=== PATIENT | female | born 1935 | race Hispanic/Latino ===

== ENCOUNTER 2018-11-05 20:25 | Inpatient (IN) | payer MEDICARE ==
[2018-11-05] MEDS ORDERED: Naloxone 0.4 mg/ml Inj (Adult) IVP STA (20:55)
[2018-11-05] MEDS ORDERED: Etomidate 20 mg/10ml Inj IV ONE ×2 (20:57→21:23)
[2018-11-05] MEDS ORDERED: Sodium Chloride 0.9% 1,000 ML IV SCH (21:00)
--- NOTE | 2018-11-05 21:24 | ED PDOC ---
HPI: Altered Mental Status Time Seen by Provider: 11/05/18 20:39 Chief Complaint (Nursing): Altered Mental Status Chief Complaint (Provider): altered mental status History Per: EMS, Other (assisted notes) History/Exam Limitations: Clinical Condition Onset/Duration Of Symptoms: Days (3) Current Symptoms Are (Timing): Still Present Additional Complaint(s): Pt. was had fevers in the assisted for 3 days and found to be unresponsive today so sent to the ER. Limited H and P as pt. unresponsive. Past Medical History Reviewed: Nursing Documentation, Vital Signs Vital Signs: Last Vital Signs Temp 99.2 F 11/05/18 20:31 Pulse 88 11/05/18 20:31 Resp 16 11/05/18 20:31 BP 143/65 11/05/18 20:31 Pulse Ox 96 11/05/18 20:31 - Medical History PMH: HTN - Family History Family History: States: Unknown Family Hx - Living Arrangements Living Arrangements: [facility] - Social History Current smoker - smoking cessation education provided: No Alcohol: None Drugs: Denies - Home Medications Home Medications: Ambulatory Orders Medication Instructions Recorded Carvedilol [Coreg] 0 mg PO DAILY 07/26/16 Ciprofloxacin [Cipro] 500 mg PO BID #20 tab 07/26/16 Levothyroxine [Synthroid] 0 mcg PO DAILY 07/26/16 Metronidazole [Flagyl] 500 mg PO TID #30 tab 07/26/16 Unk Bp Med 07/26/16 - Allergies Allergies/Adverse Reactions: Allergies Allergy/AdvReac Type Severity Reaction Status Date / Time ibuprofen [From Advil] Allergy RASH Verified 11/05/18 20:31 Review of Systems Review Of Systems: ROS cannot be obtained secondary to pt's inabilty to answer questions. Physical Exam - Reviewed Nursing Documentation Reviewed: Yes Vital Signs Reviewed: Yes - Physical Exam Appears: Positive for: In Acute Distress Head Exam: Positive for: ATRAUMATIC Skin: Positive for: Normal Color, Warm, DRY Eye Exam: Positive for: PERRL. Negative for: Conjunctival injection ENT: Negative for: Pharyngeal Erythema Neck: Positive for: Supple, Trachea Midline Cardiovascular/Chest: Positive for: Regular Rate, Rhythm Respiratory: Positive for: Decreased Breath Sounds, Other (mild coarse sounds) Gastrointestinal/Abdominal: Positive for: Soft. Negative for: Distended Back: Positive for: Normal Inspection Extremity: Negative for: Pedal Edema Neurologic/Psych: Positive for: Other (unresponsive and no gag) - Laboratory Results Result Diagrams: 11/05/18 21:00 11/05/18 21:00 Interpretation Of Abn Labs: probnp elevated, ph 6.99, pco2 elevated, 25 bun - ECG ECG: Positive for: Interpreted By Me, Viewed By Me Interpretation Of Abn EKG: paced O2 Sat by Pulse Oximetry: 96 Pulse Ox Interpretation: Normal (with non rebreather) - Radiology X-Ray: Interpreted by Me, Viewed By Me X-Ray Interpretation: Infiltrates (RLL), Other (vascular congestion) - Progress ED Course And Treament: 0: Pt. intubated due to respiratory failure and protection of airway. PCO2 on vbg elevated. 2199: Spoke with Dr. Zhang who will admit. Spoke with Dr. Sabillon who will admit. No asa as pt. troponin stable. Will hold off on diuresis as pt. also with seps is. Will give fluids conservatively. Antibiotics given. 0: Stable. Abg shows improved CO2 and ph. - Critical Care Total Time (In Min): 60 Documented Critical Care: Time excludes all time spent performint seperately billable procedures Procedures - Intubation Time of Intubation: 21:00 Intubation Method: orotracheal Tube Size (cm): 7.5 Breath Sounds after Intubation: equal Intubation Complications: no complications Post Intubation Xray: Yes Progress/Xray Impression: Glidescope used; etomidate 20 given for sedation. Disposition - Clinical Impression Clinical Impression: Respiratory failure, CHF (congestive heart failure), Dehydration, Sepsis, UTI (urinary tract infection), Pneumonia - Patient ED Disposition Is Patient to be Admitted: Yes - Disposition Disposition Time: 22:18 Condition: CRITICAL - Pt Status Changed To: Hospital Disposition Of: Inpatient - Admit Certification Admit to Inpatient:: After my assessment, the patient will require hospita lization for at least two midnights. This is because of the severity of symptoms shown, intensity of services needed, and/or the medical risk in this patient being treated as an outpatient. - POA Present On Arrival: None Core Measure Indicators: Pneumonia
[2018-11-05 21:27] LABS: VENOUS BLOOD GAS PCO2 > 150 mmHg (40-60); VENOUS BLOOD GAS PO2 64 mm/Hg (30-55); VENOUS BLOOD PH 6.99 (7.32-7.43)
[2018-11-05 21:36] LABS: PROTHROMBIN TIME 11.8 Seconds (9.8-13.1)
[2018-11-05 21:37] LABS: BASO % 0.3 % (0.0-2.0); EOS % 0.3 % (0.0-4.0); HEMOGLOBIN 13.6 g/dL (12.0-16.0); LYMPH % 21.7 % (20.0-40.0); MEAN CELL VOLUME 87.5 fl (81.0-99.0); MEAN CORPUSCULAR HEMOGLOBIN 25.6 pg (27.0-31.0); MEAN CORPUSCULAR HGB CONC 29.3 g/dL (33.0-37.0); MEAN PLATELET VOLUME 8.8 fl (7.2-11.7); MONO # 0.7 K/uL (0.0-0.8); MONO % 7.9 % (0.0-10.0); NEUT # 6.5 K/uL (1.8-7.0); NEUT % 69.8 % (50.0-75.0); NRBC % 0.1 % (0.0-0.0); RBC 5.32 Mil/uL (3.80-5.20); RED CELL DISTRIBUTION WIDTH 19.9 % (11.5-14.5); WHITE BLOOD COUNT 9.4 K/uL (4.8-10.8)
[2018-11-05 21:39] LABS: PARTIAL THROMBOPLASTIN TIME 37.4 Seconds (25.6-37.1)
[2018-11-05 21:44] LABS: RENAL EPITHELIAL 1 /hpf (0-3); SQUAMOUS EPITHIAL 1 /hpf (0-5); URINE AMORPHOUS SEDIMENT OCC /ul (<OCC); URINE BACTERIA MANY (<OCC); URINE BILIRUBIN NEGATIVE (NEGATIVE); URINE BLOOD NEGATIVE (NEGATIVE); URINE CLARITY TURBID (Clear); URINE COLOR AMBER (YELLOW); URINE GLUCOSE (UA) NEG (NEGATIVE); URINE LEUKOCYTE ESTERASE NEG Leu/uL (Negative); URINE PROTEIN 100 mg/dL (NEGATIVE); URINE UROBILINOGEN 0.2-1.0 mg/dL (0.2-1.0)
[2018-11-05 21:46] LABS: ALBUMIN 3.5 g/dL (3.5-5.0); CALCIUM 9.3 mg/dL (8.4-10.2)
[2018-11-05 21:54] LABS: TROPONIN I 0.032 ng/mL (0.00-0.120)
[2018-11-05] MEDS ORDERED: Albuterol-Ipratrop 3 mg / 0.5 (3 ml) UD INH STA (21:58)
[2018-11-05] MEDS ORDERED: Albuterol-Ipratrop 3 mg / 0.5 (3 ml) UD IH STA (21:58)
[2018-11-05 22:15] LABS: ABG ALLEN TEST YES; ARTERIAL BLOOD GAS HCO3 32.9 mmol/L (21-28); ARTERIAL BLOOD GAS O2 SAT 69.3 % (95-98); ARTERIAL BLOOD GAS PCO2 81 mm/Hg (35-45); ARTERIAL BLOOD GAS PH 7.32 (7.35-7.45); ARTERIAL BLOOD GAS PO2 29 mm/Hg (80-100); ARTERIAL BLOOD GAS TCO2 44.2 mmol/L (22-28)
[2018-11-05] MEDS ORDERED: Azithromycin 500 MG in Sodium Chloride 0.9% 250 ML IVPB ONE (22:30)
[2018-11-05] MEDS ORDERED: Piperacillin/Tazobact 3.375 GM in Sodium Chloride 0.9% 100 ML IV ONE (22:30)
[2018-11-05] MEDS ORDERED: Propofol 10 mg/ml 1,000 MG/100 ML VIAL IV SCH (22:45)
[2018-11-05] MEDS ORDERED: Piperacillin/Tazobact 3.375 gm Inj IVPB ONE (22:55)
[2018-11-05] MEDS ORDERED: Albuterol-Ipratrop 3 mg / 0.5 (3 ml) UD ONE (22:55)
[2018-11-05] MEDS ORDERED: Azithromycin 500 MG IV IVPB ONE (22:55)
--- NOTE | 2018-11-05 23:37 | CP.PCM.CON ---
History of Present Illness - History of Present Illness History of Present Illness: PMD: Dr Zhang Reason for consult: Critical care management Chief Complaint: Altered Mental status The Patient was seen and examined in the ED with the patient's son present. HPI: The hx is obtained from Patient's son and after review of the Laboratory, radiological and medical records. This is an 82 years old female with hx of CHF, HTN, DM and Hypothyroidism who was admitted at the [facility] in early October with Hypoxemia and Hypercarbia. She was treated and discharged to the [facility] from where she was sent to this ED because of Altered Mental Status being lethargic to unresponsive. In The ED The pH was 6.99 and the CO2 was > 150 so she was intubated. PMH: HTN; CHK; DM; GERD; Hypothyroidism; Constipation PSH: Pacemaker insertion reason unknown; Knee surgery in the past SH: Never Smoked; No illegal drug use; No Alcohol, Residing at [facility] assisting living FH: No Known family hx Allergies: Ibuprofen Medication: Reviewed Review of Systems - Review of Systems Systems not reviewed;Unavailable: Respiratory Distress, Altered Mental Status, Intubated Review of Systems: Review of systems is limited because the patient is in respiratory failure and intubated. Past Patient History - Infectious Disease Hx of Infectious Diseases: None - Past Medical History & Family History Past Medical History?: Yes - Past Social History Smoking Status: Never Smoked Chewing Tobacco Use: No Cigar Use: No Alcohol: None Drugs: Denies Home Situation {Lives}: Other - CARDIAC Hx Congestive Heart Failure: Yes Hx Hypertension: Yes - PULMONARY Hx Respiratory Disorders: No - NEUROLOGICAL Hx Neurological Disorder: No - HEENT Hx HEENT Problems: No - RENAL Hx Chronic Kidney Disease: No - ENDOCRINE/METABOLIC Hx Diabetes Insipidus: Yes Hx Hypothyroidism: Yes - HEMATOLOGICAL/ONCOLOGICAL Hx Blood Disorders: No - INTEGUMENTARY Hx Dermatological Problems: No - MUSCULOSKELETAL/RHEUMATOLOGICAL Hx Musculoskeletal Disorders: No - GASTROINTESTINAL Hx Diverticulitis: Yes Hx Gastroesophageal Reflux: Yes - GENITOURINARY/GYNECOLOGICAL Hx Genitourinary Disorders: No - PSYCHIATRIC Hx Psychophysiologic Disorder: No Hx Substance Use: No - SURGICAL HISTORY Hx Orthopedic Surgery: Yes Other/Comment: Pacemaker insertion - ANESTHESIA Hx Anesthesia: Yes Meds Allergies/Adverse Reactions: Allergies Allergy/AdvReac Type Severity Reaction Status Date / Time ibuprofen [From Advil] Allergy RASH Verified 11/05/18 20:31 - Medications Medications: Current Medications Sodium Chloride (Sodium Chloride 0.9%) 1,000 mls @ 150 mls/hr IV .Q6H40M [facility] Last Admin: 11/05/18 21:15 Dose: 150 mls/hr Propofol (Diprivan) 1,000 mg in 100 mls @ 3.103 mls/hr IV .Q24H [facility]; Protocol Stop: 11/06/18 22:39 Physical Exam - Constitutional Appears: In Acute Distress - Head Exam Head Exam: ATRAUMATIC, NORMAL INSPECTION, NORMOCEPHALIC - Eye Exam Eye Exam: Normal appearance Pupil Exam: NORMAL ACCOMODATION, PERRL - ENT Exam ENT Exam: Mucous Membranes Moist, Normal Exam, Normal External Ear Exam - Neck Exam Neck exam: Positive for: Full Rom, Normal Inspection - Respiratory Exam Additional comments: Inspiratory and expiratory crackles in whole of both lung almonte. - Cardiovascular Exam Cardiovascular Exam: REGULAR RHYTHM, RRR, +S1, +S2. absent: Gallop - GI/Abdominal Exam Additional comments: Obese, Soft, no viceromegalias - Rectal Exam Rectal Exam: Deferred - Extremities Exam Additional comments: Left upper extremity with hard edema, No pitting edema at the lower extremities - Back Exam Back exam: NORMAL INSPECTION - Neurological Exam Additional comments: Patient initially was non responsive. Now responsive to painful stimuli No facial droop, Plantar reflex with attempts at withdrawal. - Psychiatric Exam Psychiatric exam: Flat Affect - Skin Skin Exam: Dry, Normal Color, Pallor, Warm Results - Vital Signs Recent Vital Signs: Last Vital Signs Temp 99.9 F H 11/05/18 21:02 Pulse 85 11/05/18 23:22 Resp 22 11/05/18 23:22 BP 95/63 L 11/05/18 23:22 Pulse Ox 97 11/05/18 23:22 - Labs Result Diagrams: 11/05/18 21:00 11/05/18 21:00 Labs: Laboratory Results - last 24 hr 11/05/18 11/05/18 11/05/18 20:53 21:00 21:00 WBC 9.4 RBC 5.32 H Hgb 13.6 Hct 46.5 MCV 87.5 MCH 25.6 L MCHC 29.3 L RDW 19.9 H Plt Count 140 MPV 8.8 Neut % (Auto) 69.8 Lymph % (Auto) 21.7 [place] % (Auto) 7.9 Eos % (Auto) 0.3 Baso % (Auto) 0.3 Neut # (Auto) 6.5 Lymph # (Auto) 2.0 [place] # (Auto) 0.7 Eos # (Auto) 0.0 Baso # (Auto) 0.0 PT INR APTT pCO2 pO2 HCO3 ABG pH ABG Total CO2 ABG O2 Saturation ABG Base Excess Favian Test ABG Potassium VBG pH VBG pCO2 VBG O2 Sat (Calc) VBG Potassium A-a O2 Difference Glucose Lactate Vent Mode Mechanical Rate FiO2 Tidal Volume PEEP Crit Value Called To Crit Value Called By Crit Value Read Back Blood Gas Notified Time Sodium 145 Potassium 5.1 H Chloride 101 Carbon Dioxide 39 H Anion Gap 10 BUN 25 H Creatinine 1.1 Est GFR ( Amer) 58 Est GFR (Non-Af Amer) 48 POC Glucose (mg/dL) 169 H Random Glucose 196 H Calcium 9.3 Phosphorus 6.2 H Magnesium 2.1 Total Bilirubin 0.5 AST 22 ALT 31 Alkaline Phosphatase 77 Troponin I 0.0320 NT-Pro-B Natriuret Pep 2650 H Total Protein 7.0 Albumin 3.5 Globulin 3.4 Albumin/Globulin Ratio 1.0 Arterial Blood Potassium Venous Blood Potassium Urine Color Urine Clarity Urine pH Ur Specific [place] Urine Protein Urine Glucose (UA) Urine Ketones Urine Blood Urine Nitrate Urine Bilirubin Urine Urobilinogen Ur Leukocyte Esterase Urine RBC (Auto) Urine Microscopic WBC Ur Squamous Epith Cells Ur Transition Epith Cell Ur Renal Epithelial Cell Amorphous Sediment Urine Bacteria Hyaline Casts 11/05/18 11/05/18 11/05/18 21:00 21:20 21:30 WBC RBC Hgb Hct MCV MCH MCHC RDW Plt Count MPV Neut % (Auto) Lymph % (Auto) [place] % (Auto) Eos % (Auto) Baso % (Auto) Neut # (Auto) Lymph # (Auto) [place] # (Auto) Eos # (Auto) Baso # (Auto) PT 11.8 INR 1.0 APTT 37.4 H pCO2 pO2 64 H HCO3 ABG pH ABG Total CO2 ABG O2 Saturation ABG Base Excess Favian Test ABG Potassium VBG pH 6.99 L* VBG pCO2 > 150 H* VBG O2 Sat (Calc) 92.7 H VBG Potassium 5.1 A-a O2 Difference Glucose 194 H Lactate 0.7 Vent Mode Mechanical Rate FiO2 21.0 Tidal Volume PEEP Crit Value Called To Dr sandrine blanco Crit Value Called By 6075 Crit Value Read Back Y Blood Gas Notified Time 2125 Sodium 144.0 Potassium Chloride 104.0 Carbon Dioxide Anion Gap BUN Creatinine Est GFR ( Amer) Est GFR (Non-Af Amer) POC Glucose (mg/dL) Random Glucose Calcium Phosphorus Magnesium Total Bilirubin AST ALT Alkaline Phosphatase Troponin I NT-Pro-B Natriuret Pep Total Protein Albumin Globulin Albumin/Globulin Ratio Arterial Blood Potassium Venous Blood Potassium 5.1 Urine Color Catherine Urine Clarity Turbid Urine pH 7.0 Ur Specific [place] 1.019 Urine Protein 100 Urine Glucose (UA) Neg Urine Ketones Negative Urine Blood Negative Urine Nitrate Negative Urine Bilirubin Negative Urine Urobilinogen 0.2-1.0 Ur Leukocyte Esterase Neg Urine RBC (Auto) 1 Urine Microscopic WBC 325 H Ur Squamous Epith Cells 1 Ur Transition Epith Cell < 1 Ur Renal Epithelial Cell 1 Amorphous Sediment Occ H Urine Bacteria Many H Hyaline Casts 11-20 H 11/05/18 22:00 WBC RBC Hgb Hct MCV MCH MCHC RDW Plt Count MPV Neut % (Auto) Lymph % (Auto) [place] % (Auto) Eos % (Auto) Baso % (Auto) Neut # (Auto) Lymph # (Auto) [place] # (Auto) Eos # (Auto) Baso # (Auto) PT INR APTT pCO2 81 H* pO2 29 L* HCO3 32.9 H ABG pH 7.32 L ABG Total CO2 44.2 H ABG O2 Saturation 69.3 L ABG Base Excess 11.9 H Favian Test Yes ABG Potassium 5.3 H VBG pH VBG pCO2 VBG O2 Sat (Calc) VBG Potassium A-a O2 Difference 226.0 Glucose 213 H Lactate 1.4 Vent Mode A/c Mechanical Rate 18 FiO2 50.0 Tidal Volume 500 PEEP 5 Crit Value Called To Dr sandrine blanco Crit Value Called By 6075 Crit Value Read Back Y Blood Gas Notified Time 2214 Sodium 144.0 Potassium Chloride 107.0 Carbon Dioxide Anion Gap BUN Creatinine Est GFR ( Amer) Est GFR (Non-Af Amer) POC Glucose (mg/dL) Random Glucose Calcium Phosphorus Magnesium Total Bilirubin AST ALT Alkaline Phosphatase Troponin I NT-Pro-B Natriuret Pep Total Protein Albumin Globulin Albumin/Globulin Ratio Arterial Blood Potassium 5.3 H Venous Blood Potassium Urine Color Urine Clarity Urine pH Ur Specific [place] Urine Protein Urine Glucose (UA) Urine Ketones Urine Blood Urine Nitrate Urine Bilirubin Urine Urobilinogen Ur Leukocyte Esterase Urine RBC (Auto) Urine Microscopic WBC Ur Squamous Epith Cells Ur Transition Epith Cell Ur Renal Epithelial Cell Amorphous Sediment Urine Bacteria Hyaline Casts - Imaging and Cardiology CT scan - head Status: Image reviewed by me Additional comment: CT Brain 11/05/18 There is generalized parenchymal atrophy noted Chronic periventricular and subcortical microvascular disease is seen. Fluid opacification involving right mastoid air cells and middle ear cavity No acute intracranial pathology Chest x-ray Status: Image reviewed by me Additional comment: CXR 11/05/18 Poor inspiration ET Tube above mamadou Bibasal infiltrate with Cephalization Assessment & Plan - Assessment and Plan (Free Text) Assessment: #. Acute on Chronic Hypoxic. Hypercarbic respiratory failure #. Achte CHF with unknown EF #. Bibasal Infiltrate CHF r/p pneumonia #. Hyperkalemia #. Azotemia #. DM with Hyperglycemia #. Hypothyroidism Plan: 82 years old female with hx of CHF, HTN, DM and Hypothyroidism residing at [facility] from where she was sent to this ED because of Altered Mental Status being lethargic to unresponsive. In The ED The pH was 6.99 and the CO2 was > 150 so she was intubated. #. Acute on Chronic Hypoxic. Hypercarbic respiratory failure due to CHF and probably COPD as the patient is a CO2 retainer - Orotrachial intubation to decrease CO2 and increase Oxygenation - Duoneb - Follow ABG #. Acute on chronic CHF with unknown EF - Cardiology consult - Reduce IV Fluids to KVO - Lasix - Coreg when blood pressure has improved - No Socrates at present because of Hyperkalemia - ECHO for LVEF, wall motion, chamber size and valve anatomy - Follow up CXR #. Bibasal Infiltrate CHF r/p pneumonia - Emperical Zosyn/ Azithromycin - Follow Procalcitonin, if normal , discontinue Antibiotics #. Hyperkalemia - Follow Electrolytes #. Azotemia - Follow Renal labs #. UTI unlikely - Follow Urine culture #. DM with Hyperglycemia - Lispro sliding scale according to accucheck Q6H - HbA1c #. Hypothyroidism - levothyroxin - TSH #. DVT prophylaxis with SCD Lovenox #. Code Status: Full - Date & Time Date: 11/05/18 Time: 23:37
[2018-11-06] MEDS ORDERED: Sodium Chloride 0.9% 1,000 ML IV SCH (00:02)
[2018-11-06] MEDS ORDERED: Propofol 10 mg/ml 1,000 MG/100 ML VIAL ONE (00:23)
[2018-11-06 01:35] LABS: VENOUS BLOOD GAS BASE EXCESS 11.8 mmol/L (0.0-2.0); VENOUS BLOOD GAS PCO2 43 mmHg (40-60); VENOUS BLOOD GAS PO2 18 mm/Hg (30-55); VENOUS BLOOD PH 7.53 (7.32-7.43)
[2018-11-06] MEDS: Albuterol-Ipratrop 3 mg / 0.5 (3 ml) UD INH SCH ×6 (04:40→23:12)
[2018-11-06] MEDS ORDERED: Midazolam 2 MG/2 ML VIAL IV ONE (05:16)
[2018-11-06 05:22] LABS: ABG ALLEN TEST YES; ARTERIAL BLOOD GAS HCO3 34.7 mmol/L (21-28); ARTERIAL BLOOD GAS HEMOGLOBIN 12.5 g/dL (11.7-17.4); ARTERIAL BLOOD GAS O2 CONTENT 16.6 ML/dL (15-23); ARTERIAL BLOOD GAS O2 SAT 97.9 % (95-98); ARTERIAL BLOOD GAS PCO2 44 mm/Hg (35-45); ARTERIAL BLOOD GAS PH 7.53 (7.35-7.45); ARTERIAL BLOOD GAS PO2 73 mm/Hg (80-100); ARTERIAL BLOOD GAS TCO2 38.2 mmol/L (22-28)
[2018-11-06 05:32] LABS: BLOOD UREA NITROGEN 29 mg/dl (7-17); CALCIUM 9.2 mg/dL (8.4-10.2); GFR NON-AFRICAN AMERICAN > 60
[2018-11-06] MEDS: Insulin Lispro (humaLOG) 100 Units/ml Inj SC SCH ×4 (05:44→23:44)
[2018-11-06 05:57] LABS: HEMOGLOBIN 12.2 g/dL (12.0-16.0); MEAN CELL VOLUME 83.7 fl (81.0-99.0); MEAN CORPUSCULAR HEMOGLOBIN 25.3 pg (27.0-31.0); MEAN CORPUSCULAR HGB CONC 30.3 g/dL (33.0-37.0); RBC 4.8 Mil/uL (3.80-5.20); RED CELL DISTRIBUTION WIDTH 18.6 % (11.5-14.5); WHITE BLOOD COUNT 6.9 K/uL (4.8-10.8)
--- NOTE | 2018-11-06 08:28 | CP.CCUPN ---
<Elmira Russ - Last Filed: 11/06/18 10:53> CCU Subjective - Physician Review Events Since Last Encounter (Free Text): 82 YO Female was admitted for AMS. In the ER, pt was found to be in respiratory distress, requiring intubation. Pt was intubated and sedated with propofol No acute overnight events. Pt seen and examined by bedside this AM. Does not respond to voice, but moves ext when stimulated. Noted moving all ext. CCU Objective - Vital Signs / Intake & Output Vital Signs (Last 4 hours): Vital Signs Temp Pulse Resp BP Pulse Ox 11/06/18 07:00 81 12 124/59 L 100 11/06/18 06:00 99.3 F 77 12 133/56 L 100 11/06/18 05:00 85 12 139/66 100 11/06/18 04:40 84 Intake and Output (Last 8hrs): Intake & Output 11/05/18 11/06/18 11/06/18 22:59 06:59 14:59 Intake Total 300 Output Total 1750 Balance -1450 Weight 103.419 kg 101.151 kg Intake: IV 225 Intake, Piggyback 75 Output: Urine 1750 Urethral (Arias) 1750 - Physical Exam Head: Positive for: Atraumatic Pupils: Positive for: PERRL Mouth: Positive for: Moist Mucous Membranes Respiratory/Chest: Positive for: Decreased Breath Sounds (in the lower lobes b/l ), Other (course breath sounds, crackles in the R>L ) Abdomen: Positive for: Other (obese ). Negative for: Tenderness, Guarding Genitourinary/Pelvic Exam: Positive for: Other (Arias draining yellow urine ) Upper Extremity: Positive for: Other (moving b/l upper ext when stimulated. Mild edema of the hands b/l ) Lower Extremity: Positive for: Other (mild edema, scds on, moving both ext ) - Medications Active Medications: Active Medications Generic Name Dose Route Start Last Admin Trade Name Freq PRN Reason Stop Dose Admin Albuterol/Ipratropium 3 ml 11/06/18 04:00 11/06/18 07:06 Duoneb 3 Mg/0.5 Mg (3 Ml) Ud INH 11/08/18 04:01 3 ml RQ4 JEANA Administration Carvedilol 3.125 mg 11/06/18 09:00 Coreg PO Q12 JEANA Enoxaparin Sodium 30 mg 11/06/18 09:00 Lovenox SC DAILY JEANA Protocol Propofol 1,000 mg in 100 mls @ 3.103 mls/hr 11/05/18 22:45 11/06/18 06:56 Diprivan IV 11/06/18 22:39 5 mcg/kg/min .Q24H JEANA 3.103 mls/hr Titration Protocol 5 MCG/KG/MIN Azithromycin 500 mg/ Sodium 250 mls @ 250 mls/hr 11/06/18 09:00 Chloride IVPB DAILY JEANA Protocol Piperacillin Sod/Tazobactam 100 mls @ 100 mls/hr 11/06/18 04:00 11/06/18 04:43 Sod 2.25 gm/ Sodium Chloride IVPB 100 mls/hr Q6 JEANA Administration Protocol Sodium Chloride 1,000 mls @ 75 mls/hr 11/06/18 00:02 11/06/18 00:43 Sodium Chloride 0.9% IV 75 mls/hr .[id number] JEANA Administration Insulin Human Lispro 0 units 11/06/18 00:15 11/06/18 05:44 Humalog SC 1 units Q6H JEANA Administration Protocol Levothyroxine Sodium 25 mcg 11/06/18 09:00 Synthroid IVP DAILY JEANA Pantoprazole Sodium 40 mg 11/06/18 09:00 Protonix Ec Tab PO DAILY JEANA - Patient Studies Lab Studies: Lab Studies 11/06/18 11/06/18 11/06/18 Range/Units 05:15 04:49 04:29 WBC 6.9 (4.8-10.8) K/uL RBC 4.80 (3.80-5.20) Mil/uL Hgb 12.2 (12.0-16.0) g/dL Hct 40.2 (34.0-47.0) % MCV 83.7 D (81.0-99.0) fl MCH 25.3 L (27.0-31.0) pg MCHC 30.3 L (33.0-37.0) g/dL RDW 18.6 H (11.5-14.5) % Plt Count 117 L D (130-400) K/uL MPV (7.2-11.7) fl Neut % (Auto) (50.0-75.0) % Lymph % (Auto) (20.0-40.0) % Russell % (Auto) (0.0-10.0) % Eos % (Auto) (0.0-4.0) % Baso % (Auto) (0.0-2.0) % Neut # (Auto) (1.8-7.0) K/uL Lymph # (Auto) (1.0-4.3) K/uL Russell # (Auto) (0.0-0.8) K/uL Eos # (Auto) (0.0-0.7) K/uL Baso # (Auto) (0.0-0.2) K/uL PT (9.8-13.1) Seconds INR APTT (25.6-37.1) Seconds pCO2 44 (35-45) mm/Hg pO2 73 L (30-55) mm/Hg HCO3 34.7 H (21-28) mmol/L ABG pH 7.53 H (7.35-7.45) ABG Total CO2 38.2 H (22-28) mmol/L ABG O2 Saturation 97.9 (95-98) % ABG O2 Content 16.6 (15-23) ML/dL ABG Base Excess 12.6 H (-2.0-3.0) mmol/L ABG Hemoglobin 12.5 (11.7-17.4) g/dL ABG Carboxyhemoglobin 2.2 H (0.5-1.5) % POC ABG HHb (Measured) 2.0 (0.0-5.0) % ABG Methemoglobin 1.4 (0.0-3.0) % ABG O2 Capacity 17.0 (16-24) mL/dL Favian Test Yes ABG Potassium (3.6-5.2) mmol/L VBG pH (7.32-7.43) VBG pCO2 (40-60) mmHg VBG HCO3 mmol/L VBG Total CO2 (22-28) mmol/L VBG O2 Sat (Calc) (40-65) % VBG Base Excess (0.0-2.0) mmol/L VBG Potassium (3.6-5.2) mmol/L A-a O2 Difference 229.0 mm/Hg Hgb O2 Saturation 94.4 L (95.0-98.0) % Glucose (65-105) mg/dL Lactate (0.7-2.1) mmol/L Vent Mode Prvc/ac Mechanical Rate 12 FiO2 50.0 % Tidal Volume 500 PEEP 5 Crit Value Called To Crit Value Called By Crit Value Read Back Blood Gas Notified Time Sodium (132-148) mmol/l Potassium (3.6-5.0) MMOL/L Chloride (98-107) mmol/L Carbon Dioxide (22-30) mmol/L Anion Gap (10-20) BUN (7-17) mg/dl Creatinine (0.7-1.2) mg/dl Est GFR ( Amer) Est GFR (Non-Af Amer) POC Glucose (mg/dL) 187 H (65-110) mg/dL Random Glucose (65-105) mg/dL Lactic Acid (0.7-2.1) MMOL/L Calcium (8.4-10.2) mg/dL Phosphorus (2.5-4.5) mg/dl Magnesium (1.6-2.3) MG/DL Total Bilirubin (0.2-1.3) mg/dl AST (14-36) U/L ALT (9-52) U/L Alkaline Phosphatase (38-126) U/L Troponin I (0.00-0.120) ng/mL NT-Pro-B Natriuret Pep (0-900) pg/ml Total Protein (6.3-8.2) G/DL Albumin (3.5-5.0) g/dL Globulin (2.2-3.9) gm/dL Albumin/Globulin Ratio (1.0-2.1) TSH 3rd Generation (0.46-4.68) mIU/ML Arterial Blood Potassium (3.6-5.2) mmol/L Venous Blood Potassium (3.6-5.2) mmol/L Urine Color (YELLOW) Urine Clarity (Clear) Urine pH (5.0-8.0) Ur Specific [place] (1.003-1.030) Urine Protein (NEGATIVE) mg/dL Urine Glucose (UA) (NEGATIVE) mg/dL Urine Ketones (NEGATIVE) mg/dL Urine Blood (NEGATIVE) Urine Nitrate (NEGATIVE) Urine Bilirubin (NEGATIVE) Urine Urobilinogen (0.2-1.0) mg/dL Ur Leukocyte Esterase (Negative) Rd/uL Urine RBC (Auto) (0-3) /hpf Urine Microscopic WBC (0-5) /hpf Ur Squamous Epith Cells (0-5) /hpf Ur Transition Epith Cell (0-3) /hpf Ur Renal Epithelial Cell (0-3) /hpf Amorphous Sediment (<OCC) /ul Urine Bacteria (<OCC) Hyaline Casts (0-2) /hpf 11/06/18 11/06/18 11/06/18 Range/Units 04:25 04:25 04:25 WBC Cancelled (4.8-10.8) K/uL RBC Cancelled (3.80-5.20) Mil/uL Hgb Cancelled (12.0-16.0) g/dL Hct Cancelled (34.0-47.0) % MCV Cancelled (81.0-99.0) fl MCH Cancelled (27.0-31.0) pg MCHC Cancelled (33.0-37.0) g/dL RDW Cancelled (11.5-14.5) % Plt Count Cancelled (130-400) K/uL MPV Cancelled (7.2-11.7) fl Neut % (Auto) Cancelled (50.0-75.0) % Lymph % (Auto) Cancelled (20.0-40.0) % Russell % (Auto) Cancelled (0.0-10.0) % Eos % (Auto) Cancelled (0.0-4.0) % Baso % (Auto) Cancelled (0.0-2.0) % Neut # (Auto) Cancelled (1.8-7.0) K/uL Lymph # (Auto) Cancelled (1.0-4.3) K/uL Russell # (Auto) Cancelled (0.0-0.8) K/uL Eos # (Auto) Cancelled (0.0-0.7) K/uL Baso # (Auto) Cancelled (0.0-0.2) K/uL PT (9.8-13.1) Seconds INR APTT (25.6-37.1) Seconds pCO2 (35-45) mm/Hg pO2 (30-55) mm/Hg HCO3 (21-28) mmol/L ABG pH (7.35-7.45) ABG Total CO2 (22-28) mmol/L ABG O2 Saturation (95-98) % ABG O2 Content (15-23) ML/dL ABG Base Excess (-2.0-3.0) mmol/L ABG Hemoglobin (11.7-17.4) g/dL ABG Carboxyhemoglobin (0.5-1.5) % POC ABG HHb (Measured) (0.0-5.0) % ABG Methemoglobin (0.0-3.0) % ABG O2 Capacity (16-24) mL/dL Favian Test ABG Potassium (3.6-5.2) mmol/L VBG pH (7.32-7.43) VBG pCO2 (40-60) mmHg VBG HCO3 mmol/L VBG Total CO2 (22-28) mmol/L VBG O2 Sat (Calc) (40-65) % VBG Base Excess (0.0-2.0) mmol/L VBG Potassium (3.6-5.2) mmol/L A-a O2 Difference mm/Hg Hgb O2 Saturation (95.0-98.0) % Glucose (65-105) mg/dL Lactate (0.7-2.1) mmol/L Vent Mode Mechanical Rate FiO2 % Tidal Volume PEEP Crit Value Called To Crit Value Called By Crit Value Read Back Blood Gas Notified Time Sodium 144 (132-148) mmol/l Potassium 3.6 (3.6-5.0) MMOL/L Chloride 101 (98-107) mmol/L Carbon Dioxide 33 H (22-30) mmol/L Anion Gap 14 (10-20) BUN 29 H (7-17) mg/dl Creatinine 0.8 (0.7-1.2) mg/dl Est GFR ( Amer) > 60 Est GFR (Non-Af Amer) > 60 POC Glucose (mg/dL) (65-110) mg/dL Random Glucose 196 H (65-105) mg/dL Lactic Acid 2.3 H (0.7-2.1) MMOL/L Calcium 9.2 (8.4-10.2) mg/dL Phosphorus (2.5-4.5) mg/dl Magnesium (1.6-2.3) MG/DL Total Bilirubin (0.2-1.3) mg/dl AST (14-36) U/L ALT (9-52) U/L Alkaline Phosphatase (38-126) U/L Troponin I 0.0430 (0.00-0.120) ng/mL NT-Pro-B Natriuret Pep (0-900) pg/ml Total Protein (6.3-8.2) G/DL Albumin (3.5-5.0) g/dL Globulin (2.2-3.9) gm/dL Albumin/Globulin Ratio (1.0-2.1) TSH 3rd Generation 1.69 (0.46-4.68) mIU/ML Arterial Blood Potassium (3.6-5.2) mmol/L Venous Blood Potassium (3.6-5.2) mmol/L Urine Color (YELLOW) Urine Clarity (Clear) Urine pH (5.0-8.0) Ur Specific [place] (1.003-1.030) Urine Protein (NEGATIVE) mg/dL Urine Glucose (UA) (NEGATIVE) mg/dL Urine Ketones (NEGATIVE) mg/dL Urine Blood (NEGATIVE) Urine Nitrate (NEGATIVE) Urine Bilirubin (NEGATIVE) Urine Urobilinogen (0.2-1.0) mg/dL Ur Leukocyte Esterase (Negative) Rd/uL Urine RBC (Auto) (0-3) /hpf Urine Microscopic WBC (0-5) /hpf Ur Squamous Epith Cells (0-5) /hpf Ur Transition Epith Cell (0-3) /hpf Ur Renal Epithelial Cell (0-3) /hpf Amorphous Sediment (<OCC) /ul Urine Bacteria (<OCC) Hyaline Casts (0-2) /hpf 11/06/18 11/05/18 11/05/18 Range/Units 01:31 22:00 21:30 WBC (4.8-10.8) K/uL RBC (3.80-5.20) Mil/uL Hgb (12.0-16.0) g/dL Hct (34.0-47.0) % MCV (81.0-99.0) fl MCH (27.0-31.0) pg MCHC (33.0-37.0) g/dL RDW (11.5-14.5) % Plt Count (130-400) K/uL MPV (7.2-11.7) fl Neut % (Auto) (50.0-75.0) % Lymph % (Auto) (20.0-40.0) % Russell % (Auto) (0.0-10.0) % Eos % (Auto) (0.0-4.0) % Baso % (Auto) (0.0-2.0) % Neut # (Auto) (1.8-7.0) K/uL Lymph # (Auto) (1.0-4.3) K/uL Russell # (Auto) (0.0-0.8) K/uL Eos # (Auto) (0.0-0.7) K/uL Baso # (Auto) (0.0-0.2) K/uL PT (9.8-13.1) Seconds INR APTT (25.6-37.1) Seconds pCO2 81 H* (35-45) mm/Hg pO2 18 L 29 L* (30-55) mm/Hg HCO3 32.9 H (21-28) mmol/L ABG pH 7.32 L (7.35-7.45) ABG Total CO2 44.2 H (22-28) mmol/L ABG O2 Saturation 69.3 L (95-98) % ABG O2 Content (15-23) ML/dL ABG Base Excess 11.9 H (-2.0-3.0) mmol/L ABG Hemoglobin (11.7-17.4) g/dL ABG Carboxyhemoglobin (0.5-1.5) % POC ABG HHb (Measured) (0.0-5.0) % ABG Methemoglobin (0.0-3.0) % ABG O2 Capacity (16-24) mL/dL Favian Test Yes ABG Potassium 5.3 H (3.6-5.2) mmol/L VBG pH 7.53 H (7.32-7.43) VBG pCO2 43 (40-60) mmHg VBG HCO3 32.4 mmol/L VBG Total CO2 37.2 H (22-28) mmol/L VBG O2 Sat (Calc) 47.7 (40-65) % VBG Base Excess 11.8 H (0.0-2.0) mmol/L VBG Potassium 4.3 (3.6-5.2) mmol/L A-a O2 Difference 226.0 mm/Hg Hgb O2 Saturation (95.0-98.0) % Glucose 194 H 213 H (65-105) mg/dL Lactate 4.2 H* 1.4 (0.7-2.1) mmol/L Vent Mode A/c Mechanical Rate 18 FiO2 50.0 50.0 % Tidal Volume 500 PEEP 5 5 Crit Value Called To Dr emma blanco Crit Value Called By 6013 Crit Value Read Back Y Y Blood Gas Notified Time 134 2215 Sodium 143.0 144.0 (132-148) mmol/l Potassium (3.6-5.0) MMOL/L Chloride 103.0 107.0 (98-107) mmol/L Carbon Dioxide (22-30) mmol/L Anion Gap (10-20) BUN (7-17) mg/dl Creatinine (0.7-1.2) mg/dl Est GFR ( Amer) Est GFR (Non-Af Amer) POC Glucose (mg/dL) (65-110) mg/dL Random Glucose (65-105) mg/dL Lactic Acid (0.7-2.1) MMOL/L Calcium (8.4-10.2) mg/dL Phosphorus (2.5-4.5) mg/dl Magnesium (1.6-2.3) MG/DL Total Bilirubin (0.2-1.3) mg/dl AST (14-36) U/L ALT (9-52) U/L Alkaline Phosphatase (38-126) U/L Troponin I (0.00-0.120) ng/mL NT-Pro-B Natriuret Pep (0-900) pg/ml Total Protein (6.3-8.2) G/DL Albumin (3.5-5.0) g/dL Globulin (2.2-3.9) gm/dL Albumin/Globulin Ratio (1.0-2.1) TSH 3rd Generation (0.46-4.68) mIU/ML Arterial Blood Potassium 5.3 H (3.6-5.2) mmol/L Venous Blood Potassium 4.3 (3.6-5.2) mmol/L Urine Color Catherine (YELLOW) Urine Clarity Turbid (Clear) Urine pH 7.0 (5.0-8.0) Ur Specific [place] 1.019 (1.003-1.030) Urine Protein 100 (NEGATIVE) mg/dL Urine Glucose (UA) Neg (NEGATIVE) mg/dL Urine Ketones Negative (NEGATIVE) mg/dL Urine Blood Negative (NEGATIVE) Urine Nitrate Negative (NEGATIVE) Urine Bilirubin Negative (NEGATIVE) Urine Urobilinogen 0.2-1.0 (0.2-1.0) mg/dL Ur Leukocyte Esterase Neg (Negative) Rd/uL Urine RBC (Auto) 1 (0-3) /hpf Urine Microscopic WBC 325 H (0-5) /hpf Ur Squamous Epith Cells 1 (0-5) /hpf Ur Transition Epith Cell < 1 (0-3) /hpf Ur Renal Epithelial Cell 1 (0-3) /hpf Amorphous Sediment Occ H (<OCC) /ul Urine Bacteria Many H (<OCC) Hyaline Casts 11-20 H (0-2) /hpf 11/05/18 11/05/18 11/05/18 Range/Units 21:20 21:00 21:00 WBC 9.4 (4.8-10.8) K/uL RBC 5.32 H (3.80-5.20) Mil/uL Hgb 13.6 (12.0-16.0) g/dL Hct 46.5 (34.0-47.0) % MCV 87.5 (81.0-99.0) fl MCH 25.6 L (27.0-31.0) pg MCHC 29.3 L (33.0-37.0) g/dL RDW 19.9 H (11.5-14.5) % Plt Count 140 (130-400) K/uL MPV 8.8 (7.2-11.7) fl Neut % (Auto) 69.8 (50.0-75.0) % Lymph % (Auto) 21.7 (20.0-40.0) % Russell % (Auto) 7.9 (0.0-10.0) % Eos % (Auto) 0.3 (0.0-4.0) % Baso % (Auto) 0.3 (0.0-2.0) % Neut # (Auto) 6.5 (1.8-7.0) K/uL Lymph # (Auto) 2.0 (1.0-4.3) K/uL Russell # (Auto) 0.7 (0.0-0.8) K/uL Eos # (Auto) 0.0 (0.0-0.7) K/uL Baso # (Auto) 0.0 (0.0-0.2) K/uL PT 11.8 (9.8-13.1) Seconds INR 1.0 APTT 37.4 H (25.6-37.1) Seconds pCO2 (35-45) mm/Hg pO2 64 H (30-55) mm/Hg HCO3 (21-28) mmol/L ABG pH (7.35-7.45) ABG Total CO2 (22-28) mmol/L ABG O2 Saturation (95-98) % ABG O2 Content (15-23) ML/dL ABG Base Excess (-2.0-3.0) mmol/L ABG Hemoglobin (11.7-17.4) g/dL ABG Carboxyhemoglobin (0.5-1.5) % POC ABG HHb (Measured) (0.0-5.0) % ABG Methemoglobin (0.0-3.0) % ABG O2 Capacity (16-24) mL/dL Favian Test ABG Potassium (3.6-5.2) mmol/L VBG pH 6.99 L* (7.32-7.43) VBG pCO2 > 150 H* (40-60) mmHg VBG HCO3 mmol/L VBG Total CO2 (22-28) mmol/L VBG O2 Sat (Calc) 92.7 H (40-65) % VBG Base Excess (0.0-2.0) mmol/L VBG Potassium 5.1 (3.6-5.2) mmol/L A-a O2 Difference mm/Hg Hgb O2 Saturation (95.0-98.0) % Glucose 194 H (65-105) mg/dL Lactate 0.7 (0.7-2.1) mmol/L Vent Mode Mechanical Rate FiO2 21.0 % Tidal Volume PEEP Crit Value Called To Dr sandrine blanco Crit Value Called By 6006 Crit Value Read Back Y Blood Gas Notified Time 2125 Sodium 144.0 (132-148) mmol/l Potassium (3.6-5.0) MMOL/L Chloride 104.0 (98-107) mmol/L Carbon Dioxide (22-30) mmol/L Anion Gap (10-20) BUN (7-17) mg/dl Creatinine (0.7-1.2) mg/dl Est GFR ( Amer) Est GFR (Non-Af Amer) POC Glucose (mg/dL) (65-110) mg/dL Random Glucose (65-105) mg/dL Lactic Acid (0.7-2.1) MMOL/L Calcium (8.4-10.2) mg/dL Phosphorus (2.5-4.5) mg/dl Magnesium (1.6-2.3) MG/DL Total Bilirubin (0.2-1.3) mg/dl AST (14-36) U/L ALT (9-52) U/L Alkaline Phosphatase (38-126) U/L Troponin I (0.00-0.120) ng/mL NT-Pro-B Natriuret Pep (0-900) pg/ml Total Protein (6.3-8.2) G/DL Albumin (3.5-5.0) g/dL Globulin (2.2-3.9) gm/dL Albumin/Globulin Ratio (1.0-2.1) TSH 3rd Generation (0.46-4.68) mIU/ML Arterial Blood Potassium (3.6-5.2) mmol/L Venous Blood Potassium 5.1 (3.6-5.2) mmol/L Urine Color (YELLOW) Urine Clarity (Clear) Urine pH (5.0-8.0) Ur Specific [place] (1.003-1.030) Urine Protein (NEGATIVE) mg/dL Urine Glucose (UA) (NEGATIVE) mg/dL Urine Ketones (NEGATIVE) mg/dL Urine Blood (NEGATIVE) Urine Nitrate (NEGATIVE) Urine Bilirubin (NEGATIVE) Urine Urobilinogen (0.2-1.0) mg/dL Ur Leukocyte Esterase (Negative) Rd/uL Urine RBC (Auto) (0-3) /hpf Urine Microscopic WBC (0-5) /hpf Ur Squamous Epith Cells (0-5) /hpf Ur Transition Epith Cell (0-3) /hpf Ur Renal Epithelial Cell (0-3) /hpf Amorphous Sediment (<OCC) /ul Urine Bacteria (<OCC) Hyaline Casts (0-2) /hpf 11/05/18 11/05/18 Range/Units 21:00 20:53 WBC (4.8-10.8) K/uL RBC (3.80-5.20) Mil/uL Hgb (12.0-16.0) g/dL Hct (34.0-47.0) % MCV (81.0-99.0) fl MCH (27.0-31.0) pg MCHC (33.0-37.0) g/dL RDW (11.5-14.5) % Plt Count (130-400) K/uL MPV (7.2-11.7) fl Neut % (Auto) (50.0-75.0) % Lymph % (Auto) (20.0-40.0) % Russell % (Auto) (0.0-10.0) % Eos % (Auto) (0.0-4.0) % Baso % (Auto) (0.0-2.0) % Neut # (Auto) (1.8-7.0) K/uL Lymph # (Auto) (1.0-4.3) K/uL Russell # (Auto) (0.0-0.8) K/uL Eos # (Auto) (0.0-0.7) K/uL Baso # (Auto) (0.0-0.2) K/uL PT (9.8-13.1) Seconds INR APTT (25.6-37.1) Seconds pCO2 (35-45) mm/Hg pO2 (30-55) mm/Hg HCO3 (21-28) mmol/L ABG pH (7.35-7.45) ABG Total CO2 (22-28) mmol/L ABG O2 Saturation (95-98) % ABG O2 Content (15-23) ML/dL ABG Base Excess (-2.0-3.0) mmol/L ABG Hemoglobin (11.7-17.4) g/dL ABG Carboxyhemoglobin (0.5-1.5) % POC ABG HHb (Measured) (0.0-5.0) % ABG Methemoglobin (0.0-3.0) % ABG O2 Capacity (16-24) mL/dL Favian Test ABG Potassium (3.6-5.2) mmol/L VBG pH (7.32-7.43) VBG pCO2 (40-60) mmHg VBG HCO3 mmol/L VBG Total CO2 (22-28) mmol/L VBG O2 Sat (Calc) (40-65) % VBG Base Excess (0.0-2.0) mmol/L VBG Potassium (3.6-5.2) mmol/L A-a O2 Difference mm/Hg Hgb O2 Saturation (95.0-98.0) % Glucose (65-105) mg/dL Lactate (0.7-2.1) mmol/L Vent Mode Mechanical Rate FiO2 % Tidal Volume PEEP Crit Value Called To Crit Value Called By Crit Value Read Back Blood Gas Notified Time Sodium 145 (132-148) mmol/l Potassium 5.1 H (3.6-5.0) MMOL/L Chloride 101 (98-107) mmol/L Carbon Dioxide 39 H (22-30) mmol/L Anion Gap 10 (10-20) BUN 25 H (7-17) mg/dl Creatinine 1.1 (0.7-1.2) mg/dl Est GFR ( Amer) 58 Est GFR (Non-Af Amer) 48 POC Glucose (mg/dL) 169 H (65-110) mg/dL Random Glucose 196 H (65-105) mg/dL Lactic Acid (0.7-2.1) MMOL/L Calcium 9.3 (8.4-10.2) mg/dL Phosphorus 6.2 H (2.5-4.5) mg/dl Magnesium 2.1 (1.6-2.3) MG/DL Total Bilirubin 0.5 (0.2-1.3) mg/dl AST 22 (14-36) U/L ALT 31 (9-52) U/L Alkaline Phosphatase 77 (38-126) U/L Troponin I 0.0320 (0.00-0.120) ng/mL NT-Pro-B Natriuret Pep 2650 H (0-900) pg/ml Total Protein 7.0 (6.3-8.2) G/DL Albumin 3.5 (3.5-5.0) g/dL Globulin 3.4 (2.2-3.9) gm/dL Albumin/Globulin Ratio 1.0 (1.0-2.1) TSH 3rd Generation (0.46-4.68) mIU/ML Arterial Blood Potassium (3.6-5.2) mmol/L Venous Blood Potassium (3.6-5.2) mmol/L Urine Color (YELLOW) Urine Clarity (Clear) Urine pH (5.0-8.0) Ur Specific [place] (1.003-1.030) Urine Protein (NEGATIVE) mg/dL Urine Glucose (UA) (NEGATIVE) mg/dL Urine Ketones (NEGATIVE) mg/dL Urine Blood (NEGATIVE) Urine Nitrate (NEGATIVE) Urine Bilirubin (NEGATIVE) Urine Urobilinogen (0.2-1.0) mg/dL Ur Leukocyte Esterase (Negative) Rd/uL Urine RBC (Auto) (0-3) /hpf Urine Microscopic WBC (0-5) /hpf Ur Squamous Epith Cells (0-5) /hpf Ur Transition Epith Cell (0-3) /hpf Ur Renal Epithelial Cell (0-3) /hpf Amorphous Sediment (<OCC) /ul Urine Bacteria (<OCC) Hyaline Casts (0-2) /hpf Laboratory Results - last 24 hr 11/05/18 11/05/18 11/05/18 20:53 21:00 21:00 WBC 9.4 RBC 5.32 H Hgb 13.6 Hct 46.5 MCV 87.5 MCH 25.6 L MCHC 29.3 L RDW 19.9 H Plt Count 140 MPV 8.8 Neut % (Auto) 69.8 Lymph % (Auto) 21.7 Russell % (Auto) 7.9 Eos % (Auto) 0.3 Baso % (Auto) 0.3 Neut # (Auto) 6.5 Lymph # (Auto) 2.0 Russell # (Auto) 0.7 Eos # (Auto) 0.0 Baso # (Auto) 0.0 PT INR APTT pCO2 pO2 HCO3 ABG pH ABG Total CO2 ABG O2 Saturation ABG O2 Content ABG Base Excess ABG Hemoglobin ABG Carboxyhemoglobin POC ABG HHb (Measured) ABG Methemoglobin ABG O2 Capacity Favian Test ABG Potassium VBG pH VBG pCO2 VBG HCO3 VBG Total CO2 VBG O2 Sat (Calc) VBG Base Excess VBG Potassium A-a O2 Difference Hgb O2 Saturation Glucose Lactate Vent Mode Mechanical Rate FiO2 Tidal Volume PEEP Crit Value Called To Crit Value Called By Crit Value Read Back Blood Gas Notified Time Sodium 145 Potassium 5.1 H Chloride 101 Carbon Dioxide 39 H Anion Gap 10 BUN 25 H Creatinine 1.1 Est GFR ( Amer) 58 Est GFR (Non-Af Amer) 48 POC Glucose (mg/dL) 169 H Random Glucose 196 H Lactic Acid Calcium 9.3 Phosphorus 6.2 H Magnesium 2.1 Total Bilirubin 0.5 AST 22 ALT 31 Alkaline Phosphatase 77 Troponin I 0.0320 NT-Pro-B Natriuret Pep 2650 H Total Protein 7.0 Albumin 3.5 Globulin 3.4 Albumin/Globulin Ratio 1.0 TSH 3rd Generation Arterial Blood Potassium Venous Blood Potassium Urine Color Urine Clarity Urine pH Ur Specific [place] Urine Protein Urine Glucose (UA) Urine Ketones Urine Blood Urine Nitrate Urine Bilirubin Urine Urobilinogen Ur Leukocyte Esterase Urine RBC (Auto) Urine Microscopic WBC Ur Squamous Epith Cells Ur Transition Epith Cell Ur Renal Epithelial Cell Amorphous Sediment Urine Bacteria Hyaline Casts 11/05/18 11/05/18 11/05/18 21:00 21:20 21:30 WBC RBC Hgb Hct MCV MCH MCHC RDW Plt Count MPV Neut % (Auto) Lymph % (Auto) Russell % (Auto) Eos % (Auto) Baso % (Auto) Neut # (Auto) Lymph # (Auto) Russell # (Auto) Eos # (Auto) Baso # (Auto) PT 11.8 INR 1.0 APTT 37.4 H pCO2 pO2 64 H HCO3 ABG pH ABG Total CO2 ABG O2 Saturation ABG O2 Content ABG Base Excess ABG Hemoglobin ABG Carboxyhemoglobin POC ABG HHb (Measured) ABG Methemoglobin ABG O2 Capacity Favian Test ABG Potassium VBG pH 6.99 L* VBG pCO2 > 150 H* VBG HCO3 VBG Total CO2 VBG O2 Sat (Calc) 92.7 H VBG Base Excess VBG Potassium 5.1 A-a O2 Difference Hgb O2 Saturation Glucose 194 H Lactate 0.7 Vent Mode Mechanical Rate FiO2 21.0 Tidal Volume PEEP Crit Value Called To Dr sandrine blanco Crit Value Called By 6075 Crit Value Read Back Y Blood Gas Notified Time 2125 Sodium 144.0 Potassium Chloride 104.0 Carbon Dioxide Anion Gap BUN Creatinine Est GFR ( Amer) Est GFR (Non-Af Amer) POC Glucose (mg/dL) Random Glucose Lactic Acid Calcium Phosphorus Magnesium Total Bilirubin AST ALT Alkaline Phosphatase Troponin I NT-Pro-B Natriuret Pep Total Protein Albumin Globulin Albumin/Globulin Ratio TSH 3rd Generation Arterial Blood Potassium Venous Blood Potassium 5.1 Urine Color Catherine Urine Clarity Turbid Urine pH 7.0 Ur Specific [place] 1.019 Urine Protein 100 Urine Glucose (UA) Neg Urine Ketones Negative Urine Blood Negative Urine Nitrate Negative Urine Bilirubin Negative Urine Urobilinogen 0.2-1.0 Ur Leukocyte Esterase Neg Urine RBC (Auto) 1 Urine Microscopic WBC 325 H Ur Squamous Epith Cells 1 Ur Transition Epith Cell < 1 Ur Renal Epithelial Cell 1 Amorphous Sediment Occ H Urine Bacteria Many H Hyaline Casts 11-20 H 11/05/18 11/06/18 11/06/18 22:00 01:31 04:25 WBC Cancelled RBC Cancelled Hgb Cancelled Hct Cancelled MCV Cancelled MCH Cancelled MCHC Cancelled RDW Cancelled Plt Count Cancelled MPV Cancelled Neut % (Auto) Cancelled Lymph % (Auto) Cancelled Russell % (Auto) Cancelled Eos % (Auto) Cancelled Baso % (Auto) Cancelled Neut # (Auto) Cancelled Lymph # (Auto) Cancelled Russell # (Auto) Cancelled Eos # (Auto) Cancelled Baso # (Auto) Cancelled PT INR APTT pCO2 81 H* pO2 29 L* 18 L HCO3 32.9 H ABG pH 7.32 L ABG Total CO2 44.2 H ABG O2 Saturation 69.3 L ABG O2 Content ABG Base Excess 11.9 H ABG Hemoglobin ABG Carboxyhemoglobin POC ABG HHb (Measured) ABG Methemoglobin ABG O2 Capacity Favian Test Yes ABG Potassium 5.3 H VBG pH 7.53 H VBG pCO2 43 VBG HCO3 32.4 VBG Total CO2 37.2 H VBG O2 Sat (Calc) 47.7 VBG Base Excess 11.8 H VBG Potassium 4.3 A-a O2 Difference 226.0 Hgb O2 Saturation Glucose 213 H 194 H Lactate 1.4 4.2 H* Vent Mode A/c Mechanical Rate 18 FiO2 50.0 50.0 Tidal Volume 500 PEEP 5 5 Crit Value Called To Dr sandrine blanco Crit Value Called By 6075 Mj Crit Value Read Back Y Y Blood Gas Notified Time 2214 134 Sodium 144.0 143.0 Potassium Chloride 107.0 103.0 Carbon Dioxide Anion Gap BUN Creatinine Est GFR ( Amer) Est GFR (Non-Af Amer) POC Glucose (mg/dL) Random Glucose Lactic Acid Calcium Phosphorus Magnesium Total Bilirubin AST ALT Alkaline Phosphatase Troponin I NT-Pro-B Natriuret Pep Total Protein Albumin Globulin Albumin/Globulin Ratio TSH 3rd Generation Arterial Blood Potassium 5.3 H Venous Blood Potassium 4.3 Urine Color Urine Clarity Urine pH Ur Specific [place] Urine Protein Urine Glucose (UA) Urine Ketones Urine Blood Urine Nitrate Urine Bilirubin Urine Urobilinogen Ur Leukocyte Esterase Urine RBC (Auto) Urine Microscopic WBC Ur Squamous Epith Cells Ur Transition Epith Cell Ur Renal Epithelial Cell Amorphous Sediment Urine Bacteria Hyaline Casts 11/06/18 11/06/18 11/06/18 04:25 04:25 04:29 WBC RBC Hgb Hct MCV MCH MCHC RDW Plt Count MPV Neut % (Auto) Lymph % (Auto) Russell % (Auto) Eos % (Auto) Baso % (Auto) Neut # (Auto) Lymph # (Auto) Russell # (Auto) Eos # (Auto) Baso # (Auto) PT INR APTT pCO2 pO2 HCO3 ABG pH ABG Total CO2 ABG O2 Saturation ABG O2 Content ABG Base Excess ABG Hemoglobin ABG Carboxyhemoglobin POC ABG HHb (Measured) ABG Methemoglobin ABG O2 Capacity Favian Test ABG Potassium VBG pH VBG pCO2 VBG HCO3 VBG Total CO2 VBG O2 Sat (Calc) VBG Base Excess VBG Potassium A-a O2 Difference Hgb O2 Saturation Glucose Lactate Vent Mode Mechanical Rate FiO2 Tidal Volume PEEP Crit Value Called To Crit Value Called By Crit Value Read Back Blood Gas Notified Time Sodium 144 Potassium 3.6 Chloride 101 Carbon Dioxide 33 H Anion Gap 14 BUN 29 H Creatinine 0.8 Est GFR ( Amer) > 60 Est GFR (Non-Af Amer) > 60 POC Glucose (mg/dL) 187 H Random Glucose 196 H Lactic Acid 2.3 H Calcium 9.2 Phosphorus Magnesium Total Bilirubin AST ALT Alkaline Phosphatase Troponin I 0.0430 NT-Pro-B Natriuret Pep Total Protein Albumin Globulin Albumin/Globulin Ratio TSH 3rd Generation 1.69 Arterial Blood Potassium Venous Blood Potassium Urine Color Urine Clarity Urine pH Ur Specific [place] Urine Protein Urine Glucose (UA) Urine Ketones Urine Blood Urine Nitrate Urine Bilirubin Urine Urobilinogen Ur Leukocyte Esterase Urine RBC (Auto) Urine Microscopic WBC Ur Squamous Epith Cells Ur Transition Epith Cell Ur Renal Epithelial Cell Amorphous Sediment Urine Bacteria Hyaline Casts 11/06/18 11/06/18 04:49 05:15 WBC 6.9 RBC 4.80 Hgb 12.2 Hct 40.2 MCV 83.7 D MCH 25.3 L MCHC 30.3 L RDW 18.6 H Plt Count 117 L D MPV Neut % (Auto) Lymph % (Auto) Russell % (Auto) Eos % (Auto) Baso % (Auto) Neut # (Auto) Lymph # (Auto) Russell # (Auto) Eos # (Auto) Baso # (Auto) PT INR APTT pCO2 44 pO2 73 L HCO3 34.7 H ABG pH 7.53 H ABG Total CO2 38.2 H ABG O2 Saturation 97.9 ABG O2 Content 16.6 ABG Base Excess 12.6 H ABG Hemoglobin 12.5 ABG Carboxyhemoglobin 2.2 H POC ABG HHb (Measured) 2.0 ABG Methemoglobin 1.4 ABG O2 Capacity 17.0 Favian Test Yes ABG Potassium VBG pH VBG pCO2 VBG HCO3 VBG Total CO2 VBG O2 Sat (Calc) VBG Base Excess VBG Potassium A-a O2 Difference 229.0 Hgb O2 Saturation 94.4 L Glucose Lactate Vent Mode Prvc/ac Mechanical Rate 12 FiO2 50.0 Tidal Volume 500 PEEP 5 Crit Value Called To Crit Value Called By Crit Value Read Back Blood Gas Notified Time Sodium Potassium Chloride Carbon Dioxide Anion Gap BUN Creatinine Est GFR ( Amer) Est GFR (Non-Af Amer) POC Glucose (mg/dL) Random Glucose Lactic Acid Calcium Phosphorus Magnesium Total Bilirubin AST ALT Alkaline Phosphatase Troponin I NT-Pro-B Natriuret Pep Total Protein Albumin Globulin Albumin/Globulin Ratio TSH 3rd Generation Arterial Blood Potassium Venous Blood Potassium Urine Color Urine Clarity Urine pH Ur Specific [place] Urine Protein Urine Glucose (UA) Urine Ketones Urine Blood Urine Nitrate Urine Bilirubin Urine Urobilinogen Ur Leukocyte Esterase Urine RBC (Auto) Urine Microscopic WBC Ur Squamous Epith Cells Ur Transition Epith Cell Ur Renal Epithelial Cell Amorphous Sediment Urine Bacteria Hyaline Casts EKG/Cardiology Studies: Cardiology / EKG Studies 11/05/18 20:57 ELECTROCARDIOGRAM Stat Comment: Mode Of Transportation: Reason For Exam: Sepsis Patient Fingerstick Blood Sugar Results: 187 Critical Care Progress Note - Nutrition Nutrition: Nutrition Category Date Time Status NPO Diet [DIET] Diets 11/05/18 Dinner Active Assessment/Plan - Assessment and Plan (Free Text) Assessment: A/P: 82 YO Female with PMHx of HTN, CHF, DM, Hypothyroidism was admitted for A MS, and acute respiratory distress req intubation (in ED 11/05/18). Neuro: Intubated, sedated -CT head no acute findings -AMS likely 2/2 to hypoxia, hypercarbia (resolved this AM) -d/c sedation and wean off intubation Cardiology: Acute CHF, HTN, pacemaker -d/c IVFs -Lasix 1x today -c/w bp meds -echo ordered -Cardiology consulted: Dr. Kim Respiratory: Intubated -s/p intubation 11/05 -will wean off intubation, sedation -CPAP @ 08/17 -CXR infiltrate vs atelectasis b/l -c/w abx GI: stable -NPO -c/w Probiotic and PPI Renal: Metabolic Alkalosis -pH 7.53 with HCO3 34.7, hypercarbia resolved -start acetazolamide 1x dose this AM and second dose this evening -d/c IVFs, 1x lasix ID: pneumonia vs atelectasis, lactic acidosis -c/w abx -repeat lactate in AM Endocrine: Hypothyroidism, NIDDM -HbA1c 6.5 (01/2017), follow up new hbA1c -c/w low dose insulin correction, hypoglycemia -start IV levo 37.5mcg Prophylx -c.w PPI, probiotic -c.w Lovenox and SCDs <Gatito Jacome - Last Filed: 11/06/18 13:35> CCU Objective - Vital Signs / Intake & Output Vital Signs (Last 4 hours): Vital Signs Temp Pulse Resp BP Pulse Ox 11/06/18 13:12 128/53 L 11/06/18 12:00 99.6 F 101 H 12 128/63 98 11/06/18 11:00 97 H 15 136/74 100 11/06/18 10:00 91 H 34 H 141/72 100 Intake and Output (Last 8hrs): Intake & Output 11/05/18 11/06/18 11/06/18 22:59 06:59 14:59 Intake Total 300 575 Output Total 1750 250 Balance -1450 325 Weight 228 lb 223 lb Intake: IV 225 75 Intake, Piggyback 75 350 Free Water Flush 150 Output: Urine 1750 250 Urethral (Arias) 1750 250 - Medications Active Medications: Active Medications Generic Name Dose Route Start Last Admin Trade Name Freq PRN Reason Stop Dose Admin Acetazolamide 500 mg 11/06/18 18:00 Diamox 500 Mg Inj IV 11/06/18 18:01 ONCE ONE Albuterol/Ipratropium 3 ml 11/06/18 04:00 11/06/18 11:20 Duoneb 3 Mg/0.5 Mg (3 Ml) Ud INH 11/08/18 04:01 3 ml RQ4 JEANA Administration Carvedilol 3.125 mg 11/06/18 09:00 11/06/18 08:41 Coreg PO 3.125 mg Q12 JEANA Administration Dextrose 0 ml 11/06/18 08:46 Dextrose 50% Inj IV STAT PRN Hypoglycemia Protocol Protocol Dextrose 0 gm 11/06/18 08:46 Glutose 15 PO ONCE PRN Hypoglycemia Protocol Protocol Enoxaparin Sodium 30 mg 11/06/18 09:00 11/06/18 08:42 Lovenox SC 30 mg DAILY JEANA Administration Protocol Glucagon 0 mg 11/06/18 08:46 Glucagen Diagnostic Kit IM STAT PRN Hypoglycemia Protocol Protocol Azithromycin 500 mg/ Sodium 250 mls @ 250 mls/hr 11/06/18 09:00 11/06/18 08:44 Chloride IVPB 250 mls/hr DAILY JEANA Administration Protocol Piperacillin Sod/Tazobactam 100 mls @ 100 mls/hr 11/06/18 04:00 11/06/18 09:16 Sod 2.25 gm/ Sodium Chloride IVPB 100 mls/hr Q6 JEANA Administration Protocol Insulin Human Lispro 0 units 11/06/18 00:15 11/06/18 13:10 Humalog SC 1 units Q6H JEAAN Administration Protocol Lactobacillus Acidophilus 1 cap 11/06/18 17:00 Bacid Acidophilus PO BID JEANA Levothyroxine Sodium 37.5 mcg 11/07/18 09:00 Synthroid IVP DAILY JEANA Pantoprazole Sodium 40 mg 11/06/18 09:00 11/06/18 08:46 Protonix Ec Tab PO 40 mg DAILY JEANA Administration - Patient Studies Lab Studies: Lab Studies 11/06/18 11/06/18 11/06/18 Range/Units 11:06 10:10 10:07 WBC (4.8-10.8) K/uL RBC (3.80-5.20) Mil/uL Hgb (12.0-16.0) g/dL Hct (34.0-47.0) % MCV (81.0-99.0) fl MCH (27.0-31.0) pg MCHC (33.0-37.0) g/dL RDW (11.5-14.5) % Plt Count (130-400) K/uL MPV (7.2-11.7) fl Neut % (Auto) (50.0-75.0) % Lymph % (Auto) (20.0-40.0) % Russell % (Auto) (0.0-10.0) % Eos % (Auto) (0.0-4.0) % Baso % (Auto) (0.0-2.0) % Neut # (Auto) (1.8-7.0) K/uL Lymph # (Auto) (1.0-4.3) K/uL Russell # (Auto) (0.0-0.8) K/uL Eos # (Auto) (0.0-0.7) K/uL Baso # (Auto) (0.0-0.2) K/uL PT (9.8-13.1) Seconds INR APTT (25.6-37.1) Seconds pCO2 (35-45) mm/Hg pO2 (30-55) mm/Hg HCO3 (21-28) mmol/L ABG pH (7.35-7.45) ABG Total CO2 (22-28) mmol/L ABG O2 Saturation (95-98) % ABG O2 Content (15-23) ML/dL ABG Base Excess (-2.0-3.0) mmol/L ABG Hemoglobin (11.7-17.4) g/dL ABG Carboxyhemoglobin (0.5-1.5) % POC ABG HHb (Measured) (0.0-5.0) % ABG Methemoglobin (0.0-3.0) % ABG O2 Capacity (16-24) mL/dL Favian Test ABG Potassium (3.6-5.2) mmol/L VBG pH (7.32-7.43) VBG pCO2 (40-60) mmHg VBG HCO3 mmol/L VBG Total CO2 (22-28) mmol/L VBG O2 Sat (Calc) (40-65) % VBG Base Excess (0.0-2.0) mmol/L VBG Potassium (3.6-5.2) mmol/L A-a O2 Difference mm/Hg Hgb O2 Saturation (95.0-98.0) % Glucose (65-105) mg/dL Lactate (0.7-2.1) mmol/L Vent Mode Mechanical Rate FiO2 % Tidal Volume PEEP Crit Value Called To Crit Value Called By Crit Value Read Back Blood Gas Notified Time Sodium (132-148) mmol/l Potassium (3.6-5.0) MMOL/L Chloride (98-107) mmol/L Carbon Dioxide (22-30) mmol/L Anion Gap (10-20) BUN (7-17) mg/dl Creatinine (0.7-1.2) mg/dl Est GFR ( Amer) Est GFR (Non-Af Amer) POC Glucose (mg/dL) 176 H (65-110) mg/dL Random Glucose (65-105) mg/dL Hemoglobin A1c (4.2-6.5) % Lactic Acid (0.7-2.1) MMOL/L Calcium (8.4-10.2) mg/dL Phosphorus (2.5-4.5) mg/dl Magnesium (1.6-2.3) MG/DL Total Bilirubin (0.2-1.3) mg/dl AST (14-36) U/L ALT (9-52) U/L Alkaline Phosphatase (38-126) U/L Ammonia 14 (11-51) umo/L Troponin I 0.0640 (0.00-0.120) ng/mL NT-Pro-B Natriuret Pep (0-900) pg/ml Total Protein (6.3-8.2) G/DL Albumin (3.5-5.0) g/dL Globulin (2.2-3.9) gm/dL Albumin/Globulin Ratio (1.0-2.1) TSH 3rd Generation (0.46-4.68) mIU/ML Arterial Blood Potassium (3.6-5.2) mmol/L Venous Blood Potassium (3.6-5.2) mmol/L Urine Color (YELLOW) Urine Clarity (Clear) Urine pH (5.0-8.0) Ur Specific [place] (1.003-1.030) Urine Protein (NEGATIVE) mg/dL Urine Glucose (UA) (NEGATIVE) mg/dL Urine Ketones (NEGATIVE) mg/dL Urine Blood (NEGATIVE) Urine Nitrate (NEGATIVE) Urine Bilirubin (NEGATIVE) Urine Urobilinogen (0.2-1.0) mg/dL Ur Leukocyte Esterase (Negative) Rd/uL Urine RBC (Auto) (0-3) /hpf Urine Microscopic WBC (0-5) /hpf Ur Squamous Epith Cells (0-5) /hpf Ur Transition Epith Cell (0-3) /hpf Ur Renal Epithelial Cell (0-3) /hpf Amorphous Sediment (<OCC) /ul Urine Bacteria (<OCC) Hyaline Casts (0-2) /hpf 11/06/18 11/06/18 11/06/18 Range/Units 05:15 04:49 04:29 WBC 6.9 (4.8-10.8) K/uL RBC 4.80 (3.80-5.20) Mil/uL Hgb 12.2 (12.0-16.0) g/dL Hct 40.2 (34.0-47.0) % MCV 83.7 D (81.0-99.0) fl MCH 25.3 L (27.0-31.0) pg MCHC 30.3 L (33.0-37.0) g/dL RDW 18.6 H (11.5-14.5) % Plt Count 117 L D (130-400) K/uL MPV (7.2-11.7) fl Neut % (Auto) (50.0-75.0) % Lymph % (Auto) (20.0-40.0) % Russell % (Auto) (0.0-10.0) % Eos % (Auto) (0.0-4.0) % Baso % (Auto) (0.0-2.0) % Neut # (Auto) (1.8-7.0) K/uL Lymph # (Auto) (1.0-4.3) K/uL Russell # (Auto) (0.0-0.8) K/uL Eos # (Auto) (0.0-0.7) K/uL Baso # (Auto) (0.0-0.2) K/uL PT (9.8-13.1) Seconds INR APTT (25.6-37.1) Seconds pCO2 44 (35-45) mm/Hg pO2 73 L (30-55) mm/Hg HCO3 34.7 H (21-28) mmol/L ABG pH 7.53 H (7.35-7.45) ABG Total CO2 38.2 H (22-28) mmol/L ABG O2 Saturation 97.9 (95-98) % ABG O2 Content 16.6 (15-23) ML/dL ABG Base Excess 12.6 H (-2.0-3.0) mmol/L ABG Hemoglobin 12.5 (11.7-17.4) g/dL ABG Carboxyhemoglobin 2.2 H (0.5-1.5) % POC ABG HHb (Measured) 2.0 (0.0-5.0) % ABG Methemoglobin 1.4 (0.0-3.0) % ABG O2 Capacity 17.0 (16-24) mL/dL Favian Test Yes ABG Potassium (3.6-5.2) mmol/L VBG pH (7.32-7.43) VBG pCO2 (40-60) mmHg VBG HCO3 mmol/L VBG Total CO2 (22-28) mmol/L VBG O2 Sat (Calc) (40-65) % VBG Base Excess (0.0-2.0) mmol/L VBG Potassium (3.6-5.2) mmol/L A-a O2 Difference 229.0 mm/Hg Hgb O2 Saturation 94.4 L (95.0-98.0) % Glucose (65-105) mg/dL Lactate (0.7-2.1) mmol/L Vent Mode Prvc/ac Mechanical Rate 12 FiO2 50.0 % Tidal Volume 500 PEEP 5 Crit Value Called To Crit Value Called By Crit Value Read Back Blood Gas Notified Time Sodium (132-148) mmol/l Potassium (3.6-5.0) MMOL/L Chloride (98-107) mmol/L Carbon Dioxide (22-30) mmol/L Anion Gap (10-20) BUN (7-17) mg/dl Creatinine (0.7-1.2) mg/dl Est GFR ( Amer) Est GFR (Non-Af Amer) POC Glucose (mg/dL) 187 H (65-110) mg/dL Random Glucose (65-105) mg/dL Hemoglobin A1c (4.2-6.5) % Lactic Acid (0.7-2.1) MMOL/L Calcium (8.4-10.2) mg/dL Phosphorus (2.5-4.5) mg/dl Magnesium (1.6-2.3) MG/DL Total Bilirubin (0.2-1.3) mg/dl AST (14-36) U/L ALT (9-52) U/L Alkaline Phosphatase (38-126) U/L Ammonia (11-51) umo/L Troponin I (0.00-0.120) ng/mL NT-Pro-B Natriuret Pep (0-900) pg/ml Total Protein (6.3-8.2) G/DL Albumin (3.5-5.0) g/dL Globulin (2.2-3.9) gm/dL Albumin/Globulin Ratio (1.0-2.1) TSH 3rd Generation (0.46-4.68) mIU/ML Arterial Blood Potassium (3.6-5.2) mmol/L Venous Blood Potassium (3.6-5.2) mmol/L Urine Color (YELLOW) Urine Clarity (Clear) Urine pH (5.0-8.0) Ur Specific [place] (1.003-1.030) Urine Protein (NEGATIVE) mg/dL Urine Glucose (UA) (NEGATIVE) mg/dL Urine Ketones (NEGATIVE) mg/dL Urine Blood (NEGATIVE) Urine Nitrate (NEGATIVE) Urine Bilirubin (NEGATIVE) Urine Urobilinogen (0.2-1.0) mg/dL Ur Leukocyte Esterase (Negative) Rd/uL Urine RBC (Auto) (0-3) /hpf Urine Microscopic WBC (0-5) /hpf Ur Squamous Epith Cells (0-5) /hpf Ur Transition Epith Cell (0-3) /hpf Ur Renal Epithelial Cell (0-3) /hpf Amorphous Sediment (<OCC) /ul Urine Bacteria (<OCC) Hyaline Casts (0-2) /hpf 11/06/18 11/06/18 11/06/18 Range/Units 04:25 04:25 04:25 WBC (4.8-10.8) K/uL RBC (3.80-5.20) Mil/uL Hgb (12.0-16.0) g/dL Hct (34.0-47.0) % MCV (81.0-99.0) fl MCH (27.0-31.0) pg MCHC (33.0-37.0) g/dL RDW (11.5-14.5) % Plt Count (130-400) K/uL MPV (7.2-11.7) fl Neut % (Auto) (50.0-75.0) % Lymph % (Auto) (20.0-40.0) % Russell % (Auto) (0.0-10.0) % Eos % (Auto) (0.0-4.0) % Baso % (Auto) (0.0-2.0) % Neut # (Auto) (1.8-7.0) K/uL Lymph # (Auto) (1.0-4.3) K/uL Russell # (Auto) (0.0-0.8) K/uL Eos # (Auto) (0.0-0.7) K/uL Baso # (Auto) (0.0-0.2) K/uL PT (9.8-13.1) Seconds INR APTT (25.6-37.1) Seconds pCO2 (35-45) mm/Hg pO2 (30-55) mm/Hg HCO3 (21-28) mmol/L ABG pH (7.35-7.45) ABG Total CO2 (22-28) mmol/L ABG O2 Saturation (95-98) % ABG O2 Content (15-23) ML/dL ABG Base Excess (-2.0-3.0) mmol/L ABG Hemoglobin (11.7-17.4) g/dL ABG Carboxyhemoglobin (0.5-1.5) % POC ABG HHb (Measured) (0.0-5.0) % ABG Methemoglobin (0.0-3.0) % ABG O2 Capacity (16-24) mL/dL Favian Test ABG Potassium (3.6-5.2) mmol/L VBG pH (7.32-7.43) VBG pCO2 (40-60) mmHg VBG HCO3 mmol/L VBG Total CO2 (22-28) mmol/L VBG O2 Sat (Calc) (40-65) % VBG Base Excess (0.0-2.0) mmol/L VBG Potassium (3.6-5.2) mmol/L A-a O2 Difference mm/Hg Hgb O2 Saturation (95.0-98.0) % Glucose (65-105) mg/dL Lactate (0.7-2.1) mmol/L Vent Mode Mechanical Rate FiO2 % Tidal Volume PEEP Crit Value Called To Crit Value Called By Crit Value Read Back Blood Gas Notified Time Sodium 144 (132-148) mmol/l Potassium 3.6 (3.6-5.0) MMOL/L Chloride 101 (98-107) mmol/L Carbon Dioxide 33 H (22-30) mmol/L Anion Gap 14 (10-20) BUN 29 H (7-17) mg/dl Creatinine 0.8 (0.7-1.2) mg/dl Est GFR ( Amer) > 60 Est GFR (Non-Af Amer) > 60 POC Glucose (mg/dL) (65-110) mg/dL Random Glucose 196 H (65-105) mg/dL Hemoglobin A1c 6.5 (4.2-6.5) % Lactic Acid 2.3 H (0.7-2.1) MMOL/L Calcium 9.2 (8.4-10.2) mg/dL Phosphorus (2.5-4.5) mg/dl Magnesium (1.6-2.3) MG/DL Total Bilirubin (0.2-1.3) mg/dl AST (14-36) U/L ALT (9-52) U/L Alkaline Phosphatase (38-126) U/L Ammonia (11-51) umo/L Troponin I 0.0430 (0.00-0.120) ng/mL NT-Pro-B Natriuret Pep (0-900) pg/ml Total Protein (6.3-8.2) G/DL Albumin (3.5-5.0) g/dL Globulin (2.2-3.9) gm/dL Albumin/Globulin Ratio (1.0-2.1) TSH 3rd Generation 1.69 (0.46-4.68) mIU/ML Arterial Blood Potassium (3.6-5.2) mmol/L Venous Blood Potassium (3.6-5.2) mmol/L Urine Color (YELLOW) Urine Clarity (Clear) Urine pH (5.0-8.0) Ur Specific [place] (1.003-1.030) Urine Protein (NEGATIVE) mg/dL Urine Glucose (UA) (NEGATIVE) mg/dL Urine Ketones (NEGATIVE) mg/dL Urine Blood (NEGATIVE) Urine Nitrate (NEGATIVE) Urine Bilirubin (NEGATIVE) Urine Urobilinogen (0.2-1.0) mg/dL Ur Leukocyte Esterase (Negative) Rd/uL Urine RBC (Auto) (0-3) /hpf Urine Microscopic WBC (0-5) /hpf Ur Squamous Epith Cells (0-5) /hpf Ur Transition Epith Cell (0-3) /hpf Ur Renal Epithelial Cell (0-3) /hpf Amorphous Sediment (<OCC) /ul Urine Bacteria (<OCC) Hyaline Casts (0-2) /hpf 11/06/18 11/06/18 11/05/18 Range/Units 04:25 01:31 22:00 WBC Cancelled (4.8-10.8) K/uL RBC Cancelled (3.80-5.20) Mil/uL Hgb Cancelled (12.0-16.0) g/dL Hct Cancelled (34.0-47.0) % MCV Cancelled (81.0-99.0) fl MCH Cancelled (27.0-31.0) pg MCHC Cancelled (33.0-37.0) g/dL RDW Cancelled (11.5-14.5) % Plt Count Cancelled (130-400) K/uL MPV Cancelled (7.2-11.7) fl Neut % (Auto) Cancelled (50.0-75.0) % Lymph % (Auto) Cancelled (20.0-40.0) % Russell % (Auto) Cancelled (0.0-10.0) % Eos % (Auto) Cancelled (0.0-4.0) % Baso % (Auto) Cancelled (0.0-2.0) % Neut # (Auto) Cancelled (1.8-7.0) K/uL Lymph # (Auto) Cancelled (1.0-4.3) K/uL Russell # (Auto) Cancelled (0.0-0.8) K/uL Eos # (Auto) Cancelled (0.0-0.7) K/uL Baso # (Auto) Cancelled (0.0-0.2) K/uL PT (9.8-13.1) Seconds INR APTT (25.6-37.1) Seconds pCO2 81 H* (35-45) mm/Hg pO2 18 L 29 L* (30-55) mm/Hg HCO3 32.9 H (21-28) mmol/L ABG pH 7.32 L (7.35-7.45) ABG Total CO2 44.2 H (22-28) mmol/L ABG O2 Saturation 69.3 L (95-98) % ABG O2 Content (15-23) ML/dL ABG Base Excess 11.9 H (-2.0-3.0) mmol/L ABG Hemoglobin (11.7-17.4) g/dL ABG Carboxyhemoglobin (0.5-1.5) % POC ABG HHb (Measured) (0.0-5.0) % ABG Methemoglobin (0.0-3.0) % ABG O2 Capacity (16-24) mL/dL Favian Test Yes ABG Potassium 5.3 H (3.6-5.2) mmol/L VBG pH 7.53 H (7.32-7.43) VBG pCO2 43 (40-60) mmHg VBG HCO3 32.4 mmol/L VBG Total CO2 37.2 H (22-28) mmol/L VBG O2 Sat (Calc) 47.7 (40-65) % VBG Base Excess 11.8 H (0.0-2.0) mmol/L VBG Potassium 4.3 (3.6-5.2) mmol/L A-a O2 Difference 226.0 mm/Hg Hgb O2 Saturation (95.0-98.0) % Glucose 194 H 213 H (65-105) mg/dL Lactate 4.2 H* 1.4 (0.7-2.1) mmol/L Vent Mode A/c Mechanical Rate 18 FiO2 50.0 50.0 % Tidal Volume 500 PEEP 5 5 Crit Value Called To Dr emma blanco Crit Value Called By 6275 Crit Value Read Back Y Y Blood Gas Notified Time 134 2215 Sodium 143.0 144.0 (132-148) mmol/l Potassium (3.6-5.0) MMOL/L Chloride 103.0 107.0 (98-107) mmol/L Carbon Dioxide (22-30) mmol/L Anion Gap (10-20) BUN (7-17) mg/dl Creatinine (0.7-1.2) mg/dl Est GFR ( Amer) Est GFR (Non-Af Amer) POC Glucose (mg/dL) (65-110) mg/dL Random Glucose (65-105) mg/dL Hemoglobin A1c (4.2-6.5) % Lactic Acid (0.7-2.1) MMOL/L Calcium (8.4-10.2) mg/dL Phosphorus (2.5-4.5) mg/dl Magnesium (1.6-2.3) MG/DL Total Bilirubin (0.2-1.3) mg/dl AST (14-36) U/L ALT (9-52) U/L Alkaline Phosphatase (38-126) U/L Ammonia (11-51) umo/L Troponin I (0.00-0.120) ng/mL NT-Pro-B Natriuret Pep (0-900) pg/ml Total Protein (6.3-8.2) G/DL Albumin (3.5-5.0) g/dL Globulin (2.2-3.9) gm/dL Albumin/Globulin Ratio (1.0-2.1) TSH 3rd Generation (0.46-4.68) mIU/ML Arterial Blood Potassium 5.3 H (3.6-5.2) mmol/L Venous Blood Potassium 4.3 (3.6-5.2) mmol/L Urine Color (YELLOW) Urine Clarity (Clear) Urine pH (5.0-8.0) Ur Specific [place] (1.003-1.030) Urine Protein (NEGATIVE) mg/dL Urine Glucose (UA) (NEGATIVE) mg/dL Urine Ketones (NEGATIVE) mg/dL Urine Blood (NEGATIVE) Urine Nitrate (NEGATIVE) Urine Bilirubin (NEGATIVE) Urine Urobilinogen (0.2-1.0) mg/dL Ur Leukocyte Esterase (Negative) Rd/uL Urine RBC (Auto) (0-3) /hpf Urine Microscopic WBC (0-5) /hpf Ur Squamous Epith Cells (0-5) /hpf Ur Transition Epith Cell (0-3) /hpf Ur Renal Epithelial Cell (0-3) /hpf Amorphous Sediment (<OCC) /ul Urine Bacteria (<OCC) Hyaline Casts (0-2) /hpf 11/05/18 11/05/18 11/05/18 Range/Units 21:30 21:20 21:00 WBC (4.8-10.8) K/uL RBC (3.80-5.20) Mil/uL Hgb (12.0-16.0) g/dL Hct (34.0-47.0) % MCV (81.0-99.0) fl MCH (27.0-31.0) pg MCHC (33.0-37.0) g/dL RDW (11.5-14.5) % Plt Count (130-400) K/uL MPV (7.2-11.7) fl Neut % (Auto) (50.0-75.0) % Lymph % (Auto) (20.0-40.0) % Russell % (Auto) (0.0-10.0) % Eos % (Auto) (0.0-4.0) % Baso % (Auto) (0.0-2.0) % Neut # (Auto) (1.8-7.0) K/uL Lymph # (Auto) (1.0-4.3) K/uL Russell # (Auto) (0.0-0.8) K/uL Eos # (Auto) (0.0-0.7) K/uL Baso # (Auto) (0.0-0.2) K/uL PT 11.8 (9.8-13.1) Seconds INR 1.0 APTT 37.4 H (25.6-37.1) Seconds pCO2 (35-45) mm/Hg pO2 64 H (30-55) mm/Hg HCO3 (21-28) mmol/L ABG pH (7.35-7.45) ABG Total CO2 (22-28) mmol/L ABG O2 Saturation (95-98) % ABG O2 Content (15-23) ML/dL ABG Base Excess (-2.0-3.0) mmol/L ABG Hemoglobin (11.7-17.4) g/dL ABG Carboxyhemoglobin (0.5-1.5) % POC ABG HHb (Measured) (0.0-5.0) % ABG Methemoglobin (0.0-3.0) % ABG O2 Capacity (16-24) mL/dL Favian Test ABG Potassium (3.6-5.2) mmol/L VBG pH 6.99 L* (7.32-7.43) VBG pCO2 > 150 H* (40-60) mmHg VBG HCO3 mmol/L VBG Total CO2 (22-28) mmol/L VBG O2 Sat (Calc) 92.7 H (40-65) % VBG Base Excess (0.0-2.0) mmol/L VBG Potassium 5.1 (3.6-5.2) mmol/L A-a O2 Difference mm/Hg Hgb O2 Saturation (95.0-98.0) % Glucose 194 H (65-105) mg/dL Lactate 0.7 (0.7-2.1) mmol/L Vent Mode Mechanical Rate FiO2 21.0 % Tidal Volume PEEP Crit Value Called To Dr sandrine blanco Crit Value Called By [id number] Crit Value Read Back Y Blood Gas Notified Time 2125 Sodium 144.0 (132-148) mmol/l Potassium (3.6-5.0) MMOL/L Chloride 104.0 (98-107) mmol/L Carbon Dioxide (22-30) mmol/L Anion Gap (10-20) BUN (7-17) mg/dl Creatinine (0.7-1.2) mg/dl Est GFR ( Amer) Est GFR (Non-Af Amer) POC Glucose (mg/dL) (65-110) mg/dL Random Glucose (65-105) mg/dL Hemoglobin A1c (4.2-6.5) % Lactic Acid (0.7-2.1) MMOL/L Calcium (8.4-10.2) mg/dL Phosphorus (2.5-4.5) mg/dl Magnesium (1.6-2.3) MG/DL Total Bilirubin (0.2-1.3) mg/dl AST (14-36) U/L ALT (9-52) U/L Alkaline Phosphatase (38-126) U/L Ammonia (11-51) umo/L Troponin I (0.00-0.120) ng/mL NT-Pro-B Natriuret Pep (0-900) pg/ml Total Protein (6.3-8.2) G/DL Albumin (3.5-5.0) g/dL Globulin (2.2-3.9) gm/dL Albumin/Globulin Ratio (1.0-2.1) TSH 3rd Generation (0.46-4.68) mIU/ML Arterial Blood Potassium (3.6-5.2) mmol/L Venous Blood Potassium 5.1 (3.6-5.2) mmol/L Urine Color Catherine (YELLOW) Urine Clarity Turbid (Clear) Urine pH 7.0 (5.0-8.0) Ur Specific [place] 1.019 (1.003-1.030) Urine Protein 100 (NEGATIVE) mg/dL Urine Glucose (UA) Neg (NEGATIVE) mg/dL Urine Ketones Negative (NEGATIVE) mg/dL Urine Blood Negative (NEGATIVE) Urine Nitrate Negative (NEGATIVE) Urine Bilirubin Negative (NEGATIVE) Urine Urobilinogen 0.2-1.0 (0.2-1.0) mg/dL Ur Leukocyte Esterase Neg (Negative) Rd/uL Urine RBC (Auto) 1 (0-3) /hpf Urine Microscopic WBC 325 H (0-5) /hpf Ur Squamous Epith Cells 1 (0-5) /hpf Ur Transition Epith Cell < 1 (0-3) /hpf Ur Renal Epithelial Cell 1 (0-3) /hpf Amorphous Sediment Occ H (<OCC) /ul Urine Bacteria Many H (<OCC) Hyaline Casts 11-20 H (0-2) /hpf 11/05/18 11/05/18 11/05/18 Range/Units 21:00 21:00 20:53 WBC 9.4 (4.8-10.8) K/uL RBC 5.32 H (3.80-5.20) Mil/uL Hgb 13.6 (12.0-16.0) g/dL Hct 46.5 (34.0-47.0) % MCV 87.5 (81.0-99.0) fl MCH 25.6 L (27.0-31.0) pg MCHC 29.3 L (33.0-37.0) g/dL RDW 19.9 H (11.5-14.5) % Plt Count 140 (130-400) K/uL MPV 8.8 (7.2-11.7) fl Neut % (Auto) 69.8 (50.0-75.0) % Lymph % (Auto) 21.7 (20.0-40.0) % Russell % (Auto) 7.9 (0.0-10.0) % Eos % (Auto) 0.3 (0.0-4.0) % Baso % (Auto) 0.3 (0.0-2.0) % Neut # (Auto) 6.5 (1.8-7.0) K/uL Lymph # (Auto) 2.0 (1.0-4.3) K/uL Russell # (Auto) 0.7 (0.0-0.8) K/uL Eos # (Auto) 0.0 (0.0-0.7) K/uL Baso # (Auto) 0.0 (0.0-0.2) K/uL PT (9.8-13.1) Seconds INR APTT (25.6-37.1) Seconds pCO2 (35-45) mm/Hg pO2 (30-55) mm/Hg HCO3 (21-28) mmol/L ABG pH (7.35-7.45) ABG Total CO2 (22-28) mmol/L ABG O2 Saturation (95-98) % ABG O2 Content (15-23) ML/dL ABG Base Excess (-2.0-3.0) mmol/L ABG Hemoglobin (11.7-17.4) g/dL ABG Carboxyhemoglobin (0.5-1.5) % POC ABG HHb (Measured) (0.0-5.0) % ABG Methemoglobin (0.0-3.0) % ABG O2 Capacity (16-24) mL/dL Favian Test ABG Potassium (3.6-5.2) mmol/L VBG pH (7.32-7.43) VBG pCO2 (40-60) mmHg VBG HCO3 mmol/L VBG Total CO2 (22-28) mmol/L VBG O2 Sat (Calc) (40-65) % VBG Base Excess (0.0-2.0) mmol/L VBG Potassium (3.6-5.2) mmol/L A-a O2 Difference mm/Hg Hgb O2 Saturation (95.0-98.0) % Glucose (65-105) mg/dL Lactate (0.7-2.1) mmol/L Vent Mode Mechanical Rate FiO2 % Tidal Volume PEEP Crit Value Called To Crit Value Called By Crit Value Read Back Blood Gas Notified Time Sodium 145 (132-148) mmol/l Potassium 5.1 H (3.6-5.0) MMOL/L Chloride 101 (98-107) mmol/L Carbon Dioxide 39 H (22-30) mmol/L Anion Gap 10 (10-20) BUN 25 H (7-17) mg/dl Creatinine 1.1 (0.7-1.2) mg/dl Est GFR ( Amer) 58 Est GFR (Non-Af Amer) 48 POC Glucose (mg/dL) 169 H (65-110) mg/dL Random Glucose 196 H (65-105) mg/dL Hemoglobin A1c (4.2-6.5) % Lactic Acid (0.7-2.1) MMOL/L Calcium 9.3 (8.4-10.2) mg/dL Phosphorus 6.2 H (2.5-4.5) mg/dl Magnesium 2.1 (1.6-2.3) MG/DL Total Bilirubin 0.5 (0.2-1.3) mg/dl AST 22 (14-36) U/L ALT 31 (9-52) U/L Alkaline Phosphatase 77 (38-126) U/L Ammonia (11-51) umo/L Troponin I 0.0320 (0.00-0.120) ng/mL NT-Pro-B Natriuret Pep 2650 H (0-900) pg/ml Total Protein 7.0 (6.3-8.2) G/DL Albumin 3.5 (3.5-5.0) g/dL Globulin 3.4 (2.2-3.9) gm/dL Albumin/Globulin Ratio 1.0 (1.0-2.1) TSH 3rd Generation (0.46-4.68) mIU/ML Arterial Blood Potassium (3.6-5.2) mmol/L Venous Blood Potassium (3.6-5.2) mmol/L Urine Color (YELLOW) Urine Clarity (Clear) Urine pH (5.0-8.0) Ur Specific [place] (1.003-1.030) Urine Protein (NEGATIVE) mg/dL Urine Glucose (UA) (NEGATIVE) mg/dL Urine Ketones (NEGATIVE) mg/dL Urine Blood (NEGATIVE) Urine Nitrate (NEGATIVE) Urine Bilirubin (NEGATIVE) Urine Urobilinogen (0.2-1.0) mg/dL Ur Leukocyte Esterase (Negative) Rd/uL Urine RBC (Auto) (0-3) /hpf Urine Microscopic WBC (0-5) /hpf Ur Squamous Epith Cells (0-5) /hpf Ur Transition Epith Cell (0-3) /hpf Ur Renal Epithelial Cell (0-3) /hpf Amorphous Sediment (<OCC) /ul Urine Bacteria (<OCC) Hyaline Casts (0-2) /hpf Laboratory Results - last 24 hr 11/05/18 11/05/18 11/05/18 20:53 21:00 21:00 WBC 9.4 RBC 5.32 H Hgb 13.6 Hct 46.5 MCV 87.5 MCH 25.6 L MCHC 29.3 L RDW 19.9 H Plt Count 140 MPV 8.8 Neut % (Auto) 69.8 Lymph % (Auto) 21.7 Russell % (Auto) 7.9 Eos % (Auto) 0.3 Baso % (Auto) 0.3 Neut # (Auto) 6.5 Lymph # (Auto) 2.0 Russell # (Auto) 0.7 Eos # (Auto) 0.0 Baso # (Auto) 0.0 PT INR APTT pCO2 pO2 HCO3 ABG pH ABG Total CO2 ABG O2 Saturation ABG O2 Content ABG Base Excess ABG Hemoglobin ABG Carboxyhemoglobin POC ABG HHb (Measured) ABG Methemoglobin ABG O2 Capacity Favian Test ABG Potassium VBG pH VBG pCO2 VBG HCO3 VBG Total CO2 VBG O2 Sat (Calc) VBG Base Excess VBG Potassium A-a O2 Difference Hgb O2 Saturation Glucose Lactate Vent Mode Mechanical Rate FiO2 Tidal Volume PEEP Crit Value Called To Crit Value Called By Crit Value Read Back Blood Gas Notified Time Sodium 145 Potassium 5.1 H Chloride 101 Carbon Dioxide 39 H Anion Gap 10 BUN 25 H Creatinine 1.1 Est GFR ( Amer) 58 Est GFR (Non-Af Amer) 48 POC Glucose (mg/dL) 169 H Random Glucose 196 H Hemoglobin A1c Lactic Acid Calcium 9.3 Phosphorus 6.2 H Magnesium 2.1 Total Bilirubin 0.5 AST 22 ALT 31 Alkaline Phosphatase 77 Ammonia Troponin I 0.0320 NT-Pro-B Natriuret Pep 2650 H Total Protein 7.0 Albumin 3.5 Globulin 3.4 Albumin/Globulin Ratio 1.0 TSH 3rd Generation Arterial Blood Potassium Venous Blood Potassium Urine Color Urine Clarity Urine pH Ur Specific [place] Urine Protein Urine Glucose (UA) Urine Ketones Urine Blood Urine Nitrate Urine Bilirubin Urine Urobilinogen Ur Leukocyte Esterase Urine RBC (Auto) Urine Microscopic WBC Ur Squamous Epith Cells Ur Transition Epith Cell Ur Renal Epithelial Cell Amorphous Sediment Urine Bacteria Hyaline Casts 11/05/18 11/05/18 11/05/18 21:00 21:20 21:30 WBC RBC Hgb Hct MCV MCH MCHC RDW Plt Count MPV Neut % (Auto) Lymph % (Auto) Russell % (Auto) Eos % (Auto) Baso % (Auto) Neut # (Auto) Lymph # (Auto) Russell # (Auto) Eos # (Auto) Baso # (Auto) PT 11.8 INR 1.0 APTT 37.4 H pCO2 pO2 64 H HCO3 ABG pH ABG Total CO2 ABG O2 Saturation ABG O2 Content ABG Base Excess ABG Hemoglobin ABG Carboxyhemoglobin POC ABG HHb (Measured) ABG Methemoglobin ABG O2 Capacity Favian Test ABG Potassium VBG pH 6.99 L* VBG pCO2 > 150 H* VBG HCO3 VBG Total CO2 VBG O2 Sat (Calc) 92.7 H VBG Base Excess VBG Potassium 5.1 A-a O2 Difference Hgb O2 Saturation Glucose 194 H Lactate 0.7 Vent Mode Mechanical Rate FiO2 21.0 Tidal Volume PEEP Crit Value Called To Dr sandrine blanco Crit Value Called By 6075 Crit Value Read Back Y Blood Gas Notified Time 2126 Sodium 144.0 Potassium Chloride 104.0 Carbon Dioxide Anion Gap BUN Creatinine Est GFR ( Amer) Est GFR (Non-Af Amer) POC Glucose (mg/dL) Random Glucose Hemoglobin A1c Lactic Acid Calcium Phosphorus Magnesium Total Bilirubin AST ALT Alkaline Phosphatase Ammonia Troponin I NT-Pro-B Natriuret Pep Total Protein Albumin Globulin Albumin/Globulin Ratio TSH 3rd Generation Arterial Blood Potassium Venous Blood Potassium 5.1 Urine Color Catherine Urine Clarity Turbid Urine pH 7.0 Ur Specific [place] 1.019 Urine Protein 100 Urine Glucose (UA) Neg Urine Ketones Negative Urine Blood Negative Urine Nitrate Negative Urine Bilirubin Negative Urine Urobilinogen 0.2-1.0 Ur Leukocyte Esterase Neg Urine RBC (Auto) 1 Urine Microscopic WBC 325 H Ur Squamous Epith Cells 1 Ur Transition Epith Cell < 1 Ur Renal Epithelial Cell 1 Amorphous Sediment Occ H Urine Bacteria Many H Hyaline Casts 11-20 H 11/05/18 11/06/18 11/06/18 22:00 01:31 04:25 WBC Cancelled RBC Cancelled Hgb Cancelled Hct Cancelled MCV Cancelled MCH Cancelled MCHC Cancelled RDW Cancelled Plt Count Cancelled MPV Cancelled Neut % (Auto) Cancelled Lymph % (Auto) Cancelled Russell % (Auto) Cancelled Eos % (Auto) Cancelled Baso % (Auto) Cancelled Neut # (Auto) Cancelled Lymph # (Auto) Cancelled Russell # (Auto) Cancelled Eos # (Auto) Cancelled Baso # (Auto) Cancelled PT INR APTT pCO2 81 H* pO2 29 L* 18 L HCO3 32.9 H ABG pH 7.32 L ABG Total CO2 44.2 H ABG O2 Saturation 69.3 L ABG O2 Content ABG Base Excess 11.9 H ABG Hemoglobin ABG Carboxyhemoglobin POC ABG HHb (Measured) ABG Methemoglobin ABG O2 Capacity Favian Test Yes ABG Potassium 5.3 H VBG pH 7.53 H VBG pCO2 43 VBG HCO3 32.4 VBG Total CO2 37.2 H VBG O2 Sat (Calc) 47.7 VBG Base Excess 11.8 H VBG Potassium 4.3 A-a O2 Difference 226.0 Hgb O2 Saturation Glucose 213 H 194 H Lactate 1.4 4.2 H* Vent Mode A/c Mechanical Rate 18 FiO2 50.0 50.0 Tidal Volume 500 PEEP 5 5 Crit Value Called To Dr sandrine blanco Crit Value Called By 6075 Mj Crit Value Read Back Y Y Blood Gas Notified Time 2215 134 Sodium 144.0 143.0 Potassium Chloride 107.0 103.0 Carbon Dioxide Anion Gap BUN Creatinine Est GFR ( Amer) Est GFR (Non-Af Amer) POC Glucose (mg/dL) Random Glucose Hemoglobin A1c Lactic Acid Calcium Phosphorus Magnesium Total Bilirubin AST ALT Alkaline Phosphatase Ammonia Troponin I NT-Pro-B Natriuret Pep Total Protein Albumin Globulin Albumin/Globulin Ratio TSH 3rd Generation Arterial Blood Potassium 5.3 H Venous Blood Potassium 4.3 Urine Color Urine Clarity Urine pH Ur Specific [place] Urine Protein Urine Glucose (UA) Urine Ketones Urine Blood Urine Nitrate Urine Bilirubin Urine Urobilinogen Ur Leukocyte Esterase Urine RBC (Auto) Urine Microscopic WBC Ur Squamous Epith Cells Ur Transition Epith Cell Ur Renal Epithelial Cell Amorphous Sediment Urine Bacteria Hyaline Casts 11/06/18 11/06/18 11/06/18 04:25 04:25 04:25 WBC RBC Hgb Hct MCV MCH MCHC RDW Plt Count MPV Neut % (Auto) Lymph % (Auto) Russell % (Auto) Eos % (Auto) Baso % (Auto) Neut # (Auto) Lymph # (Auto) Russell # (Auto) Eos # (Auto) Baso # (Auto) PT INR APTT pCO2 pO2 HCO3 ABG pH ABG Total CO2 ABG O2 Saturation ABG O2 Content ABG Base Excess ABG Hemoglobin ABG Carboxyhemoglobin POC ABG HHb (Measured) ABG Methemoglobin ABG O2 Capacity Favian Test ABG Potassium VBG pH VBG pCO2 VBG HCO3 VBG Total CO2 VBG O2 Sat (Calc) VBG Base Excess VBG Potassium A-a O2 Difference Hgb O2 Saturation Glucose Lactate Vent Mode Mechanical Rate FiO2 Tidal Volume PEEP Crit Value Called To Crit Value Called By Crit Value Read Back Blood Gas Notified Time Sodium 144 Potassium 3.6 Chloride 101 Carbon Dioxide 33 H Anion Gap 14 BUN 29 H Creatinine 0.8 Est GFR ( Amer) > 60 Est GFR (Non-Af Amer) > 60 POC Glucose (mg/dL) Random Glucose 196 H Hemoglobin A1c 6.5 Lactic Acid 2.3 H Calcium 9.2 Phosphorus Magnesium Total Bilirubin AST ALT Alkaline Phosphatase Ammonia Troponin I 0.0430 NT-Pro-B Natriuret Pep Total Protein Albumin Globulin Albumin/Globulin Ratio TSH 3rd Generation 1.69 Arterial Blood Potassium Venous Blood Potassium Urine Color Urine Clarity Urine pH Ur Specific [place] Urine Protein Urine Glucose (UA) Urine Ketones Urine Blood Urine Nitrate Urine Bilirubin Urine Urobilinogen Ur Leukocyte Esterase Urine RBC (Auto) Urine Microscopic WBC Ur Squamous Epith Cells Ur Transition Epith Cell Ur Renal Epithelial Cell Amorphous Sediment Urine Bacteria Hyaline Casts 11/06/18 11/06/18 11/06/18 04:29 04:49 05:15 WBC 6.9 RBC 4.80 Hgb 12.2 Hct 40.2 MCV 83.7 D MCH 25.3 L MCHC 30.3 L RDW 18.6 H Plt Count 117 L D MPV Neut % (Auto) Lymph % (Auto) Russell % (Auto) Eos % (Auto) Baso % (Auto) Neut # (Auto) Lymph # (Auto) Russell # (Auto) Eos # (Auto) Baso # (Auto) PT INR APTT pCO2 44 pO2 73 L HCO3 34.7 H ABG pH 7.53 H ABG Total CO2 38.2 H ABG O2 Saturation 97.9 ABG O2 Content 16.6 ABG Base Excess 12.6 H ABG Hemoglobin 12.5 ABG Carboxyhemoglobin 2.2 H POC ABG HHb (Measured) 2.0 ABG Methemoglobin 1.4 ABG O2 Capacity 17.0 Favian Test Yes ABG Potassium VBG pH VBG pCO2 VBG HCO3 VBG Total CO2 VBG O2 Sat (Calc) VBG Base Excess VBG Potassium A-a O2 Difference 229.0 Hgb O2 Saturation 94.4 L Glucose Lactate Vent Mode Prvc/ac Mechanical Rate 12 FiO2 50.0 Tidal Volume 500 PEEP 5 Crit Value Called To Crit Value Called By Crit Value Read Back Blood Gas Notified Time Sodium Potassium Chloride Carbon Dioxide Anion Gap BUN Creatinine Est GFR ( Amer) Est GFR (Non-Af Amer) POC Glucose (mg/dL) 187 H Random Glucose Hemoglobin A1c Lactic Acid Calcium Phosphorus Magnesium Total Bilirubin AST ALT Alkaline Phosphatase Ammonia Troponin I NT-Pro-B Natriuret Pep Total Protein Albumin Globulin Albumin/Globulin Ratio TSH 3rd Generation Arterial Blood Potassium Venous Blood Potassium Urine Color Urine Clarity Urine pH Ur Specific [place] Urine Protein Urine Glucose (UA) Urine Ketones Urine Blood Urine Nitrate Urine Bilirubin Urine Urobilinogen Ur Leukocyte Esterase Urine RBC (Auto) Urine Microscopic WBC Ur Squamous Epith Cells Ur Transition Epith Cell Ur Renal Epithelial Cell Amorphous Sediment Urine Bacteria Hyaline Casts 11/06/18 11/06/18 11/06/18 10:07 10:10 11:06 WBC RBC Hgb Hct MCV MCH MCHC RDW Plt Count MPV Neut % (Auto) Lymph % (Auto) Russell % (Auto) Eos % (Auto) Baso % (Auto) Neut # (Auto) Lymph # (Auto) Russell # (Auto) Eos # (Auto) Baso # (Auto) PT INR APTT pCO2 pO2 HCO3 ABG pH ABG Total CO2 ABG O2 Saturation ABG O2 Content ABG Base Excess ABG Hemoglobin ABG Carboxyhemoglobin POC ABG HHb (Measured) ABG Methemoglobin ABG O2 Capacity Favian Test ABG Potassium VBG pH VBG pCO2 VBG HCO3 VBG Total CO2 VBG O2 Sat (Calc) VBG Base Excess VBG Potassium A-a O2 Difference Hgb O2 Saturation Glucose Lactate Vent Mode Mechanical Rate FiO2 Tidal Volume PEEP Crit Value Called To Crit Value Called By Crit Value Read Back Blood Gas Notified Time Sodium Potassium Chloride Carbon Dioxide Anion Gap BUN Creatinine Est GFR ( Amer) Est GFR (Non-Af Amer) POC Glucose (mg/dL) 176 H Random Glucose Hemoglobin A1c Lactic Acid Calcium Phosphorus Magnesium Total Bilirubin AST ALT Alkaline Phosphatase Ammonia 14 Troponin I 0.0640 NT-Pro-B Natriuret Pep Total Protein Albumin Globulin Albumin/Globulin Ratio TSH 3rd Generation Arterial Blood Potassium Venous Blood Potassium Urine Color Urine Clarity Urine pH Ur Specific [place] Urine Protein Urine Glucose (UA) Urine Ketones Urine Blood Urine Nitrate Urine Bilirubin Urine Urobilinogen Ur Leukocyte Esterase Urine RBC (Auto) Urine Microscopic WBC Ur Squamous Epith Cells Ur Transition Epith Cell Ur Renal Epithelial Cell Amorphous Sediment Urine Bacteria Hyaline Casts Radiology Impressions: Radiology Impressions Chest X-Ray 11/05/18 20:57 IMPRESSION: No active disease. ET tube appropriately positioned. AICD. Head CT 11/05/18 21:25 IMPRESSION: No acute intracranial hemorrhage. 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 Moderate generalized volume loss. Sclerotic underpneumatized right mastoid air complex with subtotal opacification including the right middle ear canal. There is also subtotal opacification left middle ear canal and mastoid air complex. . Chest X-Ray 11/06/18 05:00 IMPRESSION: In situ ETT in good position.. Unclear whether there is an in situ NGT Bibasilar atelectasis and/or infiltrates with suspected bilateral effusions. Central pulmonary vasculature appears slightly less congested. EKG/Cardiology Studies: Cardiology / EKG Studies 11/05/18 20:57 ELECTROCARDIOGRAM Stat Comment: Mode Of Transportation: Reason For Exam: Sepsis Patient Critical Care Progress Note - Nutrition Nutrition: Nutrition Category Date Time Status NPO Diet [DIET] Diets 11/05/18 Dinner Active Attending/Attestation - Attestation I have personally seen and examined this patient.: Yes I have fully participated in the care of the patient.: Yes I have reviewed all pertinent clinical information: Yes Notes (Text): 11/06/18 13:31 I have seen and examined the patient. Medical records, lab studies, and imaging were reviewed by me and a management plan was formulated on multidisciplinary rounds with resident Dr. Russ. I agree with their above documented assessment and plan. Patient only tolerated PS trial for 2 hours before becoming tachypneic. obtaining echo to assess CHF. Diuresing gently. No history of COPD nor smoking. Possible obesity hypoventilation and ELIZABETH with acute exacerbation of chronic CHF, that caused hypercapneic respiratory failure. Critical Care Time 35 minutes. Multi-disciplinary rounds were performed with house staff, nursing, speech therapy, respiratory therapy, pharmacy and nutrition with integrated input from the primary team/attending and other consulting services. The documented time is cumulative and includes review of patient data/exams/labs/chart review and examination of the patient on rounds and throughout the day; time is exclusive of any procedures or teaching time.
--- NOTE | 2018-11-06 08:30 | CP.PCM.HP ---
<Lyndsey Lazar - Last Filed: 11/06/18 08:10> History of Present Illness - History of Present Illness History of Present Illness: 82 yo F with history CHF, HTN, DM2, hypothyrodism. History obtained via chart review, as pt is intubated and no family at bedside when seen this morning with Dr. Zhang. As per chart, info from pt's son: pt was recently admitted at [facility] in early October due to hypoxemia and hypercarbia, after which she was discharged to [facility]. Yesterday she became lethargic and unresponsive. Due to this change in mental status, she was brought to [facility] ED. In [facility] ED, ABG showed pH 6.99, CO2 > 150; she was intubated due to resp failure. In ED: CXR showed right>left infiltrate. EKG showed paced rhythm at 87 bpm. Elevated proBNP 2650 Blood and urine cultures collected. 125 mg methylprednisolone x1 naloxone 0.4 mg x1 duonebs x2 zosyn x1 Repeat ABG showed improvement of pH and CO2. Past Med Hx: as above Past Surg Hx: Pacemaker insertion, knee surgery Social Hx: as per chart: no smoking, no drugs, no alcohol. currently living at [facility]; No illegal drug use; No Alcohol, Residing at [facility] assisting living Family Hx: unknown Allergies: ibuprofen Medication: as per med rec ROS: unobtainable due to intubated status Present on Admission - Present on Admission Any Indicators Present on Admission: No Review of Systems - Review of Systems Systems not reviewed;Unavailable: Intubated Past Patient History - Infectious Disease Hx of Infectious Diseases: None - Past Medical History & Family History Past Medical History?: Yes - Past Social History Smoking Status: Never Smoked - CARDIAC Hx Congestive Heart Failure: Yes Hx Hypertension: Yes Hx Pacemaker: Yes Other/Comment: AV dual pacemaker - PULMONARY Hx Respiratory Disorders: No - NEUROLOGICAL Hx Neurological Disorder: No - HEENT Hx HEENT Problems: No - RENAL Hx Chronic Kidney Disease: No - ENDOCRINE/METABOLIC Hx Diabetes Insipidus: Yes Hx Hypothyroidism: Yes - HEMATOLOGICAL/ONCOLOGICAL Hx Blood Disorders: No - INTEGUMENTARY Hx Dermatological Problems: No - MUSCULOSKELETAL/RHEUMATOLOGICAL Hx Musculoskeletal Disorders: No Hx Falls: No - GASTROINTESTINAL Hx Diverticulitis: Yes Hx Gastroesophageal Reflux: Yes - GENITOURINARY/GYNECOLOGICAL Hx Genitourinary Disorders: No - PSYCHIATRIC Hx Psychophysiologic Disorder: No Hx Substance Use: No - SURGICAL HISTORY Hx Orthopedic Surgery: Yes Other/Comment: Pacemaker insertion - ANESTHESIA Hx Anesthesia: Yes Meds Allergies/Adverse Reactions: Allergies Allergy/AdvReac Type Severity Reaction Status Date / Time ibuprofen [From Advil] Allergy RASH Verified 11/05/18 20:31 Physical Exam - Constitutional Additional comments: intubated, unresponsive - Head Exam Head Exam: NORMOCEPHALIC - Eye Exam Eye Exam: Normal appearance - Respiratory Exam Respiratory Exam: absent: Respiratory Distress Additional comments: coarse crackles bilaterally on mechanical ventilator - Cardiovascular Exam Cardiovascular Exam: REGULAR RHYTHM - GI/Abdominal Exam GI & Abdominal Exam: Soft. absent: Tenderness Additional comments: obese - Extremities Exam Extremities exam: Negative for: pedal edema Additional comments: no edema in lower extremities - Neurological Exam Additional comments: intubated withdraws from painful stimuli - Skin Skin Exam: Dry, Warm Results - Vital Signs Recent Vital Signs: Last Vital Signs Temp 99.3 F 11/06/18 06:00 Pulse 81 11/06/18 07:00 Resp 12 11/06/18 07:00 BP 124/59 L 11/06/18 07:00 Pulse Ox 100 11/06/18 07:00 - Labs Result Diagrams: 11/06/18 04:49 11/06/18 04:25 Labs: Laboratory Results - last 24 hr 11/05/18 11/05/18 11/05/18 20:53 21:00 21:00 WBC 9.4 RBC 5.32 H Hgb 13.6 Hct 46.5 MCV 87.5 MCH 25.6 L MCHC 29.3 L RDW 19.9 H Plt Count 140 MPV 8.8 Neut % (Auto) 69.8 Lymph % (Auto) 21.7 Wilkes % (Auto) 7.9 Eos % (Auto) 0.3 Baso % (Auto) 0.3 Neut # (Auto) 6.5 Lymph # (Auto) 2.0 Wilkes # (Auto) 0.7 Eos # (Auto) 0.0 Baso # (Auto) 0.0 PT INR APTT pCO2 pO2 HCO3 ABG pH ABG Total CO2 ABG O2 Saturation ABG O2 Content ABG Base Excess ABG Hemoglobin ABG Carboxyhemoglobin POC ABG HHb (Measured) ABG Methemoglobin ABG O2 Capacity Favian Test ABG Potassium VBG pH VBG pCO2 VBG HCO3 VBG Total CO2 VBG O2 Sat (Calc) VBG Base Excess VBG Potassium A-a O2 Difference Hgb O2 Saturation Glucose Lactate Vent Mode Mechanical Rate FiO2 Tidal Volume PEEP Crit Value Called To Crit Value Called By Crit Value Read Back Blood Gas Notified Time Sodium 145 Potassium 5.1 H Chloride 101 Carbon Dioxide 39 H Anion Gap 10 BUN 25 H Creatinine 1.1 Est GFR ( Amer) 58 Est GFR (Non-Af Amer) 48 POC Glucose (mg/dL) 169 H Random Glucose 196 H Lactic Acid Calcium 9.3 Phosphorus 6.2 H Magnesium 2.1 Total Bilirubin 0.5 AST 22 ALT 31 Alkaline Phosphatase 77 Troponin I 0.0320 NT-Pro-B Natriuret Pep 2650 H Total Protein 7.0 Albumin 3.5 Globulin 3.4 Albumin/Globulin Ratio 1.0 TSH 3rd Generation Arterial Blood Potassium Venous Blood Potassium Urine Color Urine Clarity Urine pH Ur Specific [place] Urine Protein Urine Glucose (UA) Urine Ketones Urine Blood Urine Nitrate Urine Bilirubin Urine Urobilinogen Ur Leukocyte Esterase Urine RBC (Auto) Urine Microscopic WBC Ur Squamous Epith Cells Ur Transition Epith Cell Ur Renal Epithelial Cell Amorphous Sediment Urine Bacteria Hyaline Casts 11/05/18 11/05/18 11/05/18 21:00 21:20 21:30 WBC RBC Hgb Hct MCV MCH MCHC RDW Plt Count MPV Neut % (Auto) Lymph % (Auto) [place] % (Auto) Eos % (Auto) Baso % (Auto) Neut # (Auto) Lymph # (Auto) [place] # (Auto) Eos # (Auto) Baso # (Auto) PT 11.8 INR 1.0 APTT 37.4 H pCO2 pO2 64 H HCO3 ABG pH ABG Total CO2 ABG O2 Saturation ABG O2 Content ABG Base Excess ABG Hemoglobin ABG Carboxyhemoglobin POC ABG HHb (Measured) ABG Methemoglobin ABG O2 Capacity Favian Test ABG Potassium VBG pH 6.99 L* VBG pCO2 > 150 H* VBG HCO3 VBG Total CO2 VBG O2 Sat (Calc) 92.7 H VBG Base Excess VBG Potassium 5.1 A-a O2 Difference Hgb O2 Saturation Glucose 194 H Lactate 0.7 Vent Mode Mechanical Rate FiO2 21.0 Tidal Volume PEEP Crit Value Called To Dr sandrine blanco Crit Value Called By 6075 Crit Value Read Back Y Blood Gas Notified Time 2125 Sodium 144.0 Potassium Chloride 104.0 Carbon Dioxide Anion Gap BUN Creatinine Est GFR ( Amer) Est GFR (Non-Af Amer) POC Glucose (mg/dL) Random Glucose Lactic Acid Calcium Phosphorus Magnesium Total Bilirubin AST ALT Alkaline Phosphatase Troponin I NT-Pro-B Natriuret Pep Total Protein Albumin Globulin Albumin/Globulin Ratio TSH 3rd Generation Arterial Blood Potassium Venous Blood Potassium 5.1 Urine Color Catherine Urine Clarity Turbid Urine pH 7.0 Ur Specific [place] 1.019 Urine Protein 100 Urine Glucose (UA) Neg Urine Ketones Negative Urine Blood Negative Urine Nitrate Negative Urine Bilirubin Negative Urine Urobilinogen 0.2-1.0 Ur Leukocyte Esterase Neg Urine RBC (Auto) 1 Urine Microscopic WBC 325 H Ur Squamous Epith Cells 1 Ur Transition Epith Cell < 1 Ur Renal Epithelial Cell 1 Amorphous Sediment Occ H Urine Bacteria Many H Hyaline Casts 11-20 H 11/05/18 11/06/18 11/06/18 22:00 01:31 04:25 WBC Cancelled RBC Cancelled Hgb Cancelled Hct Cancelled MCV Cancelled MCH Cancelled MCHC Cancelled RDW Cancelled Plt Count Cancelled MPV Cancelled Neut % (Auto) Cancelled Lymph % (Auto) Cancelled [place]kes % (Auto) Cancelled Eos % (Auto) Cancelled Baso % (Auto) Cancelled Neut # (Auto) Cancelled Lymph # (Auto) Cancelled [place] # (Auto) Cancelled Eos # (Auto) Cancelled Baso # (Auto) Cancelled PT INR APTT pCO2 81 H* pO2 29 L* 18 L HCO3 32.9 H ABG pH 7.32 L ABG Total CO2 44.2 H ABG O2 Saturation 69.3 L ABG O2 Content ABG Base Excess 11.9 H ABG Hemoglobin ABG Carboxyhemoglobin POC ABG HHb (Measured) ABG Methemoglobin ABG O2 Capacity Favian Test Yes ABG Potassium 5.3 H VBG pH 7.53 H VBG pCO2 43 VBG HCO3 32.4 VBG Total CO2 37.2 H VBG O2 Sat (Calc) 47.7 VBG Base Excess 11.8 H VBG Potassium 4.3 A-a O2 Difference 226.0 Hgb O2 Saturation Glucose 213 H 194 H Lactate 1.4 4.2 H* Vent Mode A/c Mechanical Rate 18 FiO2 50.0 50.0 Tidal Volume 500 PEEP 5 5 Crit Value Called To Dr sandrine blanco Crit Value Called By 6075 Mj Crit Value Read Back Y Y Blood Gas Notified Time 2215 134 Sodium 144.0 143.0 Potassium Chloride 107.0 103.0 Carbon Dioxide Anion Gap BUN Creatinine Est GFR ( Amer) Est GFR (Non-Af Amer) POC Glucose (mg/dL) Random Glucose Lactic Acid Calcium Phosphorus Magnesium Total Bilirubin AST ALT Alkaline Phosphatase Troponin I NT-Pro-B Natriuret Pep Total Protein Albumin Globulin Albumin/Globulin Ratio TSH 3rd Generation Arterial Blood Potassium 5.3 H Venous Blood Potassium 4.3 Urine Color Urine Clarity Urine pH Ur Specific [place] Urine Protein Urine Glucose (UA) Urine Ketones Urine Blood Urine Nitrate Urine Bilirubin Urine Urobilinogen Ur Leukocyte Esterase Urine RBC (Auto) Urine Microscopic WBC Ur Squamous Epith Cells Ur Transition Epith Cell Ur Renal Epithelial Cell Amorphous Sediment Urine Bacteria Hyaline Casts 11/06/18 11/06/18 11/06/18 04:25 04:25 04:29 WBC RBC Hgb Hct MCV MCH MCHC RDW Plt Count MPV Neut % (Auto) Lymph % (Auto) [place] % (Auto) Eos % (Auto) Baso % (Auto) Neut # (Auto) Lymph # (Auto) [place] # (Auto) Eos # (Auto) Baso # (Auto) PT INR APTT pCO2 pO2 HCO3 ABG pH ABG Total CO2 ABG O2 Saturation ABG O2 Content ABG Base Excess ABG Hemoglobin ABG Carboxyhemoglobin POC ABG HHb (Measured) ABG Methemoglobin ABG O2 Capacity Favian Test ABG Potassium VBG pH VBG pCO2 VBG HCO3 VBG Total CO2 VBG O2 Sat (Calc) VBG Base Excess VBG Potassium A-a O2 Difference Hgb O2 Saturation Glucose Lactate Vent Mode Mechanical Rate FiO2 Tidal Volume PEEP Crit Value Called To Crit Value Called By Crit Value Read Back Blood Gas Notified Time Sodium 144 Potassium 3.6 Chloride 101 Carbon Dioxide 33 H Anion Gap 14 BUN 29 H Creatinine 0.8 Est GFR ( Amer) > 60 Est GFR (Non-Af Amer) > 60 POC Glucose (mg/dL) 187 H Random Glucose 196 H Lactic Acid 2.3 H Calcium 9.2 Phosphorus Magnesium Total Bilirubin AST ALT Alkaline Phosphatase Troponin I 0.0430 NT-Pro-B Natriuret Pep Total Protein Albumin Globulin Albumin/Globulin Ratio TSH 3rd Generation 1.69 Arterial Blood Potassium Venous Blood Potassium Urine Color Urine Clarity Urine pH Ur Specific [place] Urine Protein Urine Glucose (UA) Urine Ketones Urine Blood Urine Nitrate Urine Bilirubin Urine Urobilinogen Ur Leukocyte Esterase Urine RBC (Auto) Urine Microscopic WBC Ur Squamous Epith Cells Ur Transition Epith Cell Ur Renal Epithelial Cell Amorphous Sediment Urine Bacteria Hyaline Casts 11/06/18 11/06/18 04:49 05:15 WBC 6.9 RBC 4.80 Hgb 12.2 Hct 40.2 MCV 83.7 D MCH 25.3 L MCHC 30.3 L RDW 18.6 H Plt Count 117 L D MPV Neut % (Auto) Lymph % (Auto) [place] % (Auto) Eos % (Auto) Baso % (Auto) Neut # (Auto) Lymph # (Auto) [place] # (Auto) Eos # (Auto) Baso # (Auto) PT INR APTT pCO2 44 pO2 73 L HCO3 34.7 H ABG pH 7.53 H ABG Total CO2 38.2 H ABG O2 Saturation 97.9 ABG O2 Content 16.6 ABG Base Excess 12.6 H ABG Hemoglobin 12.5 ABG Carboxyhemoglobin 2.2 H POC ABG HHb (Measured) 2.0 ABG Methemoglobin 1.4 ABG O2 Capacity 17.0 Favian Test Yes ABG Potassium VBG pH VBG pCO2 VBG HCO3 VBG Total CO2 VBG O2 Sat (Calc) VBG Base Excess VBG Potassium A-a O2 Difference 229.0 Hgb O2 Saturation 94.4 L Glucose Lactate Vent Mode Prvc/ac Mechanical Rate 12 FiO2 50.0 Tidal Volume 500 PEEP 5 Crit Value Called To Crit Value Called By Crit Value Read Back Blood Gas Notified Time Sodium Potassium Chloride Carbon Dioxide Anion Gap BUN Creatinine Est GFR ( Amer) Est GFR (Non-Af Amer) POC Glucose (mg/dL) Random Glucose Lactic Acid Calcium Phosphorus Magnesium Total Bilirubin AST ALT Alkaline Phosphatase Troponin I NT-Pro-B Natriuret Pep Total Protein Albumin Globulin Albumin/Globulin Ratio TSH 3rd Generation Arterial Blood Potassium Venous Blood Potassium Urine Color Urine Clarity Urine pH Ur Specific [place] Urine Protein Urine Glucose (UA) Urine Ketones Urine Blood Urine Nitrate Urine Bilirubin Urine Urobilinogen Ur Leukocyte Esterase Urine RBC (Auto) Urine Microscopic WBC Ur Squamous Epith Cells Ur Transition Epith Cell Ur Renal Epithelial Cell Amorphous Sediment Urine Bacteria Hyaline Casts Assessment & Plan - Assessment and Plan (Free Text) Assessment: 82 yo F with hx HTN, CHF, DM, hypothyroidism, pacemaker, admitted due to respiratory failure after being sent from [facility]. On ABG found to have pH 6.99 and CO2 > 150; currently intubated. Plan: - Admitted to ICU; metal can inspector consult, input, management appreciated - Hypoxia, hypercarbia -- improving with intubation. Duonebs ordered, follow ABGs - CHF, pacemaker - cardio consult - Dr. Kim. Echo pending - Pneumonia, presumed bacterial - zosyn, azithromycin. Procalcitonin pending. - Hyperkalemia resolved - Follow up blood/urine cx - Insulin coverage scale and hypoglucemia protocol - Resume home meds for thyroid, check TSH - Lovenox <Zhang,Nakul K - Last Filed: 11/06/18 12:46> Results - Vital Signs Recent Vital Signs: Last Vital Signs Temp 98.7 F 11/06/18 08:00 Pulse 97 H 11/06/18 11:00 Resp 15 11/06/18 11:00 BP 136/74 11/06/18 11:00 Pulse Ox 100 11/06/18 11:00 - Labs Result Diagrams: 11/06/18 04:49 11/06/18 04:25 Labs: Laboratory Results - last 24 hr 11/05/18 11/05/18 11/05/18 20:53 21:00 21:00 WBC 9.4 RBC 5.32 H Hgb 13.6 Hct 46.5 MCV 87.5 MCH 25.6 L MCHC 29.3 L RDW 19.9 H Plt Count 140 MPV 8.8 Neut % (Auto) 69.8 Lymph % (Auto) 21.7 Wilkes % (Auto) 7.9 Eos % (Auto) 0.3 Baso % (Auto) 0.3 Neut # (Auto) 6.5 Lymph # (Auto) 2.0 [place] # (Auto) 0.7 Eos # (Auto) 0.0 Baso # (Auto) 0.0 PT INR APTT pCO2 pO2 HCO3 ABG pH ABG Total CO2 ABG O2 Saturation ABG O2 Content ABG Base Excess ABG Hemoglobin ABG Carboxyhemoglobin POC ABG HHb (Measured) ABG Methemoglobin ABG O2 Capacity Favian Test ABG Potassium VBG pH VBG pCO2 VBG HCO3 VBG Total CO2 VBG O2 Sat (Calc) VBG Base Excess VBG Potassium A-a O2 Difference Hgb O2 Saturation Glucose Lactate Vent Mode Mechanical Rate FiO2 Tidal Volume PEEP Crit Value Called To Crit Value Called By Crit Value Read Back Blood Gas Notified Time Sodium 145 Potassium 5.1 H Chloride 101 Carbon Dioxide 39 H Anion Gap 10 BUN 25 H Creatinine 1.1 Est GFR ( Amer) 58 Est GFR (Non-Af Amer) 48 POC Glucose (mg/dL) 169 H Random Glucose 196 H Hemoglobin A1c Lactic Acid Calcium 9.3 Phosphorus 6.2 H Magnesium 2.1 Total Bilirubin 0.5 AST 22 ALT 31 Alkaline Phosphatase 77 Ammonia Troponin I 0.0320 NT-Pro-B Natriuret Pep 2650 H Total Protein 7.0 Albumin 3.5 Globulin 3.4 Albumin/Globulin Ratio 1.0 TSH 3rd Generation Arterial Blood Potassium Venous Blood Potassium Urine Color Urine Clarity Urine pH Ur Specific [place] Urine Protein Urine Glucose (UA) Urine Ketones Urine Blood Urine Nitrate Urine Bilirubin Urine Urobilinogen Ur Leukocyte Esterase Urine RBC (Auto) Urine Microscopic WBC Ur Squamous Epith Cells Ur Transition Epith Cell Ur Renal Epithelial Cell Amorphous Sediment Urine Bacteria Hyaline Casts 11/05/18 11/05/18 11/05/18 21:00 21:20 21:30 WBC RBC Hgb Hct MCV MCH MCHC RDW Plt Count MPV Neut % (Auto) Lymph % (Auto) [place] % (Auto) Eos % (Auto) Baso % (Auto) Neut # (Auto) Lymph # (Auto) [place] # (Auto) Eos # (Auto) Baso # (Auto) PT 11.8 INR 1.0 APTT 37.4 H pCO2 pO2 64 H HCO3 ABG pH ABG Total CO2 ABG O2 Saturation ABG O2 Content ABG Base Excess ABG Hemoglobin ABG Carboxyhemoglobin POC ABG HHb (Measured) ABG Methemoglobin ABG O2 Capacity Favian Test ABG Potassium VBG pH 6.99 L* VBG pCO2 > 150 H* VBG HCO3 VBG Total CO2 VBG O2 Sat (Calc) 92.7 H VBG Base Excess VBG Potassium 5.1 A-a O2 Difference Hgb O2 Saturation Glucose 194 H Lactate 0.7 Vent Mode Mechanical Rate FiO2 21.0 Tidal Volume PEEP Crit Value Called To Dr sandrine blanco Crit Value Called By 6064 Crit Value Read Back Y Blood Gas Notified Time 2125 Sodium 144.0 Potassium Chloride 104.0 Carbon Dioxide Anion Gap BUN Creatinine Est GFR ( Amer) Est GFR (Non-Af Amer) POC Glucose (mg/dL) Random Glucose Hemoglobin A1c Lactic Acid Calcium Phosphorus Magnesium Total Bilirubin AST ALT Alkaline Phosphatase Ammonia Troponin I NT-Pro-B Natriuret Pep Total Protein Albumin Globulin Albumin/Globulin Ratio TSH 3rd Generation Arterial Blood Potassium Venous Blood Potassium 5.1 Urine Color Catherine Urine Clarity Turbid Urine pH 7.0 Ur Specific [place] 1.019 Urine Protein 100 Urine Glucose (UA) Neg Urine Ketones Negative Urine Blood Negative Urine Nitrate Negative Urine Bilirubin Negative Urine Urobilinogen 0.2-1.0 Ur Leukocyte Esterase Neg Urine RBC (Auto) 1 Urine Microscopic WBC 325 H Ur Squamous Epith Cells 1 Ur Transition Epith Cell < 1 Ur Renal Epithelial Cell 1 Amorphous Sediment Occ H Urine Bacteria Many H Hyaline Casts 11-20 H 11/05/18 11/06/18 11/06/18 22:00 01:31 04:25 WBC Cancelled RBC Cancelled Hgb Cancelled Hct Cancelled MCV Cancelled MCH Cancelled MCHC Cancelled RDW Cancelled Plt Count Cancelled MPV Cancelled Neut % (Auto) Cancelled Lymph % (Auto) Cancelled [place] % (Auto) Cancelled Eos % (Auto) Cancelled Baso % (Auto) Cancelled Neut # (Auto) Cancelled Lymph # (Auto) Cancelled [place] # (Auto) Cancelled Eos # (Auto) Cancelled Baso # (Auto) Cancelled PT INR APTT pCO2 81 H* pO2 29 L* 18 L HCO3 32.9 H ABG pH 7.32 L ABG Total CO2 44.2 H ABG O2 Saturation 69.3 L ABG O2 Content ABG Base Excess 11.9 H ABG Hemoglobin ABG Carboxyhemoglobin POC ABG HHb (Measured) ABG Methemoglobin ABG O2 Capacity Favian Test Yes ABG Potassium 5.3 H VBG pH 7.53 H VBG pCO2 43 VBG HCO3 32.4 VBG Total CO2 37.2 H VBG O2 Sat (Calc) 47.7 VBG Base Excess 11.8 H VBG Potassium 4.3 A-a O2 Difference 226.0 Hgb O2 Saturation Glucose 213 H 194 H Lactate 1.4 4.2 H* Vent Mode A/c Mechanical Rate 18 FiO2 50.0 50.0 Tidal Volume 500 PEEP 5 5 Crit Value Called To Dr sandrine blanco Crit Value Called By 6075 Mj Crit Value Read Back Y Y Blood Gas Notified Time 2215 134 Sodium 144.0 143.0 Potassium Chloride 107.0 103.0 Carbon Dioxide Anion Gap BUN Creatinine Est GFR ( Amer) Est GFR (Non-Af Amer) POC Glucose (mg/dL) Random Glucose Hemoglobin A1c Lactic Acid Calcium Phosphorus Magnesium Total Bilirubin AST ALT Alkaline Phosphatase Ammonia Troponin I NT-Pro-B Natriuret Pep Total Protein Albumin Globulin Albumin/Globulin Ratio TSH 3rd Generation Arterial Blood Potassium 5.3 H Venous Blood Potassium 4.3 Urine Color Urine Clarity Urine pH Ur Specific [place] Urine Protein Urine Glucose (UA) Urine Ketones Urine Blood Urine Nitrate Urine Bilirubin Urine Urobilinogen Ur Leukocyte Esterase Urine RBC (Auto) Urine Microscopic WBC Ur Squamous Epith Cells Ur Transition Epith Cell Ur Renal Epithelial Cell Amorphous Sediment Urine Bacteria Hyaline Casts 11/06/18 11/06/18 11/06/18 04:25 04:25 04:25 WBC RBC Hgb Hct MCV MCH MCHC RDW Plt Count MPV Neut % (Auto) Lymph % (Auto) [place] % (Auto) Eos % (Auto) Baso % (Auto) Neut # (Auto) Lymph # (Auto) [place] # (Auto) Eos # (Auto) Baso # (Auto) PT INR APTT pCO2 pO2 HCO3 ABG pH ABG Total CO2 ABG O2 Saturation ABG O2 Content ABG Base Excess ABG Hemoglobin ABG Carboxyhemoglobin POC ABG HHb (Measured) ABG Methemoglobin ABG O2 Capacity [place] Test ABG Potassium VBG pH VBG pCO2 VBG HCO3 VBG Total CO2 VBG O2 Sat (Calc) VBG Base Excess VBG Potassium A-a O2 Difference Hgb O2 Saturation Glucose Lactate Vent Mode Mechanical Rate FiO2 Tidal Volume PEEP Crit Value Called To Crit Value Called By Crit Value Read Back Blood Gas Notified Time Sodium 144 Potassium 3.6 Chloride 101 Carbon Dioxide 33 H Anion Gap 14 BUN 29 H Creatinine 0.8 Est GFR ( Amer) > 60 Est GFR (Non-Af Amer) > 60 POC Glucose (mg/dL) Random Glucose 196 H Hemoglobin A1c 6.5 Lactic Acid 2.3 H Calcium 9.2 Phosphorus Magnesium Total Bilirubin AST ALT Alkaline Phosphatase Ammonia Troponin I 0.0430 NT-Pro-B Natriuret Pep Total Protein Albumin Globulin Albumin/Globulin Ratio TSH 3rd Generation 1.69 Arterial Blood Potassium Venous Blood Potassium Urine Color Urine Clarity Urine pH Ur Specific [place] Urine Protein Urine Glucose (UA) Urine Ketones Urine Blood Urine Nitrate Urine Bilirubin Urine Urobilinogen Ur Leukocyte Esterase Urine RBC (Auto) Urine Microscopic WBC Ur Squamous Epith Cells Ur Transition Epith Cell Ur Renal Epithelial Cell Amorphous Sediment Urine Bacteria Hyaline Casts 11/06/18 11/06/18 11/06/18 04:29 04:49 05:15 WBC 6.9 RBC 4.80 Hgb 12.2 Hct 40.2 MCV 83.7 D MCH 25.3 L MCHC 30.3 L RDW 18.6 H Plt Count 117 L D MPV Neut % (Auto) Lymph % (Auto) [place] % (Auto) Eos % (Auto) Baso % (Auto) Neut # (Auto) Lymph # (Auto) [place] # (Auto) Eos # (Auto) Baso # (Auto) PT INR APTT pCO2 44 pO2 73 L HCO3 34.7 H ABG pH 7.53 H ABG Total CO2 38.2 H ABG O2 Saturation 97.9 ABG O2 Content 16.6 ABG Base Excess 12.6 H ABG Hemoglobin 12.5 ABG Carboxyhemoglobin 2.2 H POC ABG HHb (Measured) 2.0 ABG Methemoglobin 1.4 ABG O2 Capacity 17.0 Favian Test Yes ABG Potassium VBG pH VBG pCO2 VBG HCO3 VBG Total CO2 VBG O2 Sat (Calc) VBG Base Excess VBG Potassium A-a O2 Difference 229.0 Hgb O2 Saturation 94.4 L Glucose Lactate Vent Mode Prvc/ac Mechanical Rate 12 FiO2 50.0 Tidal Volume 500 PEEP 5 Crit Value Called To Crit Value Called By Crit Value Read Back Blood Gas Notified Time Sodium Potassium Chloride Carbon Dioxide Anion Gap BUN Creatinine Est GFR ( Amer) Est GFR (Non-Af Amer) POC Glucose (mg/dL) 187 H Random Glucose Hemoglobin A1c Lactic Acid Calcium Phosphorus Magnesium Total Bilirubin AST ALT Alkaline Phosphatase Ammonia Troponin I NT-Pro-B Natriuret Pep Total Protein Albumin Globulin Albumin/Globulin Ratio TSH 3rd Generation Arterial Blood Potassium Venous Blood Potassium Urine Color Urine Clarity Urine pH Ur Specific [place] Urine Protein Urine Glucose (UA) Urine Ketones Urine Blood Urine Nitrate Urine Bilirubin Urine Urobilinogen Ur Leukocyte Esterase Urine RBC (Auto) Urine Microscopic WBC Ur Squamous Epith Cells Ur Transition Epith Cell Ur Renal Epithelial Cell Amorphous Sediment Urine Bacteria Hyaline Casts 11/06/18 11/06/18 11/06/18 10:07 10:10 11:06 WBC RBC Hgb Hct MCV MCH MCHC RDW Plt Count MPV Neut % (Auto) Lymph % (Auto) [place] % (Auto) Eos % (Auto) Baso % (Auto) Neut # (Auto) Lymph # (Auto) [place] # (Auto) Eos # (Auto) Baso # (Auto) PT INR APTT pCO2 pO2 HCO3 ABG pH ABG Total CO2 ABG O2 Saturation ABG O2 Content ABG Base Excess ABG Hemoglobin ABG Carboxyhemoglobin POC ABG HHb (Measured) ABG Methemoglobin ABG O2 Capacity [place]avian Test ABG Potassium VBG pH VBG pCO2 VBG HCO3 VBG Total CO2 VBG O2 Sat (Calc) VBG Base Excess VBG Potassium A-a O2 Difference Hgb O2 Saturation Glucose Lactate Vent Mode Mechanical Rate FiO2 Tidal Volume PEEP Crit Value Called To Crit Value Called By Crit Value Read Back Blood Gas Notified Time Sodium Potassium Chloride Carbon Dioxide Anion Gap BUN Creatinine Est GFR ( Amer) Est GFR (Non-Af Amer) POC Glucose (mg/dL) 176 H Random Glucose Hemoglobin A1c Lactic Acid Calcium Phosphorus Magnesium Total Bilirubin AST ALT Alkaline Phosphatase Ammonia 14 Troponin I 0.0640 NT-Pro-B Natriuret Pep Total Protein Albumin Globulin Albumin/Globulin Ratio TSH 3rd Generation Arterial Blood Potassium Venous Blood Potassium Urine Color Urine Clarity Urine pH Ur Specific [place] Urine Protein Urine Glucose (UA) Urine Ketones Urine Blood Urine Nitrate Urine Bilirubin Urine Urobilinogen Ur Leukocyte Esterase Urine RBC (Auto) Urine Microscopic WBC Ur Squamous Epith Cells Ur Transition Epith Cell Ur Renal Epithelial Cell Amorphous Sediment Urine Bacteria Hyaline Casts Assessment & Plan - Assessment and Plan (Free Text) Plan: Patient was personally seen and examined by me in rounds with residents. Available labs and diagnostic data reviewed. Case, Patient's condition and management plan discussed with residents in misha ds. Agree with resident's progress note. Plan: As ordered.
[2018-11-06] MEDS: Enoxaparin 30 mg Syringe SC SCH (08:42)
[2018-11-06] MEDS: Azithromycin 500 MG in Sodium Chloride 0.9% 250 ML IVPB SCH (08:44)
[2018-11-06] MEDS: Pantoprazole 40 mg EC Tab PO SCH (08:46)
[2018-11-06] MEDS ORDERED: Glucagon Recombinant 1 mg Inj IM PRN (08:46)
[2018-11-06] MEDS ORDERED: Dextrose 50% SYRINGE Inj (50 ml) IV PRN (08:46)
--- NOTE | 2018-11-06 08:51 | CP.PCM.CON ---
History of Present Illness - History of Present Illness History of Present Illness: Consultation for evaluation of CHF HPI: 82 yo female with past medical history significant for hypertension diabetes hyperlipidemia CHF status post ICD placement 2 years ago was admitted earlier in the month to [facility] with an episode of hypoxemia and hypercarbia she underwent a nuclear stress test which showed no evidence of ischemia ejection fraction was mildly impaired at 45-50% and was subsequently discharged back to [facility] where she was noted to be lethargic and unresponsive he was transferred over to [facility] where he was noted to be severely acidotic with a pH of 6.899 an extremely hypercarbic with PCO2 greater than 150 for which she was intubated. At the time of my evaluation she seem and unresponsive was on the ventilator. Past medical history as stated above significant for hypertension diabetes hyperlipidemia CHF chronic kidney disease past surgical history significant for ICD placement 2 years ago social history patient was residing at [facility] assisted living facility. Family history nonsignificant for CAD allergies allergic to ibuprofen medications as per the son patient was on oxybutynin and Diamox. Review of systems as stated above in the HPI unable to obtain from the patient secondary to patient unresponsive. Review of Systems - Review of Systems Systems not reviewed;Unavailable: Acuity of Condition - Constitutional Constitutional: As Per HPI - EENT Eyes: As Per HPI - Breasts Breasts: As Per HPI - Cardiovascular Cardiovascular: As Per HPI - Respiratory Respiratory: As Per HPI - Gastrointestinal Gastrointestinal: As Per HPI - Genitourinary Genitourinary: As Per HPI - Reproductive: Female Reproductive:Female: As Per HPI - Menstruation Menstruation: As Per HPI - Musculoskeletal Musculoskeletal: As Per HPI - Integumentary Integumentary: As Per HPI - Neurological Neurological: As Per HPI - Psychiatric Psychiatric: As Per HPI - Endocrine Endocrine: As Per HPI - Hematologic/Lymphatic Hematologic: As Per HPI Past Patient History - Infectious Disease Hx of Infectious Diseases: None - Past Medical History & Family History Past Medical History?: Yes - Past Social History Smoking Status: Never Smoked - CARDIAC Hx Congestive Heart Failure: Yes Hx Hypertension: Yes Hx Pacemaker: Yes Other/Comment: AV dual pacemaker - PULMONARY Hx Respiratory Disorders: No - NEUROLOGICAL Hx Neurological Disorder: No - HEENT Hx HEENT Problems: No - RENAL Hx Chronic Kidney Disease: No - ENDOCRINE/METABOLIC Hx Diabetes Insipidus: Yes Hx Hypothyroidism: Yes - HEMATOLOGICAL/ONCOLOGICAL Hx Blood Disorders: No - INTEGUMENTARY Hx Dermatological Problems: No - MUSCULOSKELETAL/RHEUMATOLOGICAL Hx Musculoskeletal Disorders: No Hx Falls: No - GASTROINTESTINAL Hx Diverticulitis: Yes Hx Gastroesophageal Reflux: Yes - GENITOURINARY/GYNECOLOGICAL Hx Genitourinary Disorders: No - PSYCHIATRIC Hx Psychophysiologic Disorder: No Hx Substance Use: No - SURGICAL HISTORY Hx Orthopedic Surgery: Yes Other/Comment: Pacemaker insertion - ANESTHESIA Hx Anesthesia: Yes Meds Allergies/Adverse Reactions: Allergies Allergy/AdvReac Type Severity Reaction Status Date / Time ibuprofen [From Advil] Allergy RASH Verified 11/05/18 20:31 - Medications Medications: Current Medications Albuterol/Ipratropium (Duoneb 3 Mg/0.5 Mg (3 Ml) Ud) 3 ml INH RQ4 JEANA Stop: 11/08/18 04:01 Last Admin: 11/06/18 07:06 Dose: 3 ml Carvedilol (Coreg) 3.125 mg PO Q12 JEANA Last Admin: 11/06/18 08:41 Dose: 3.125 mg Dextrose (Dextrose 50% Inj) 0 ml IV STAT PRN; Protocol PRN Reason: Hypoglycemia Protocol Dextrose (Glutose 15) 0 gm PO ONCE PRN; Protocol PRN Reason: Hypoglycemia Protocol Enoxaparin Sodium (Lovenox) 30 mg SC DAILY JEANA; Protocol Last Admin: 11/06/18 08:42 Dose: 30 mg Glucagon (Glucagen Diagnostic Kit) 0 mg IM STAT PRN; Protocol PRN Reason: Hypoglycemia Protocol Propofol (Diprivan) 1,000 mg in 100 mls @ 3.103 mls/hr IV .Q24H JEANA; Protocol Stop: 11/06/18 22:39 Last Titration: 11/06/18 06:56 Dose: 5 mcg/kg/min, 3.103 mls/hr Azithromycin 500 mg/ Sodium (Chloride) 250 mls @ 250 mls/hr IVPB DAILY JEANA; Protocol Last Admin: 11/06/18 08:44 Dose: 250 mls/hr Piperacillin Sod/Tazobactam (Sod 2.25 gm/ Sodium Chloride) 100 mls @ 100 mls/hr IVPB Q6 JEANA; Protocol Last Admin: 11/06/18 04:43 Dose: 100 mls/hr Sodium Chloride (Sodium Chloride 0.9%) 1,000 mls @ 75 mls/hr IV .[id number] JEANA Last Admin: 11/06/18 00:43 Dose: 75 mls/hr Insulin Human Lispro (Humalog) 0 units SC Q6H [facility]; Protocol Last Admin: 11/06/18 05:44 Dose: 1 units Levothyroxine Sodium (Synthroid) 25 mcg IVP DAILY [facility] Last Admin: 11/06/18 08:44 Dose: 25 mcg Pantoprazole Sodium (Protonix Ec Tab) 40 mg PO DAILY [facility] Last Admin: 11/06/18 08:46 Dose: 40 mg Physical Exam - Constitutional Appears: Toxic, Chronically Ill - Head Exam Head Exam: ATRAUMATIC, NORMAL INSPECTION, NORMOCEPHALIC - Eye Exam Eye Exam: Normal appearance, PERRL Pupil Exam: NORMAL ACCOMODATION, PERRL - ENT Exam ENT Exam: Mucous Membranes Moist, Normal Exam Additional comments: intubated - Neck Exam Neck exam: Positive for: Normal Inspection - Respiratory Exam Respiratory Exam: Rales, NORMAL BREATHING PATTERN - Cardiovascular Exam Cardiovascular Exam: REGULAR RHYTHM, +S1, +S2, Systolic Murmur - GI/Abdominal Exam GI & Abdominal Exam: Normal Bowel Sounds, Soft. absent: Tenderness - Extremities Exam Extremities exam: Positive for: normal inspection - Back Exam Back exam: NORMAL INSPECTION - Neurological Exam Neurological exam: Alert, CN II-XII Intact, Normal Gait, Oriented x3, Reflexes Normal - Psychiatric Exam Psychiatric exam: Normal Affect, Normal Mood - Skin Skin Exam: Dry, Intact, Normal Color, Warm Results - Vital Signs Recent Vital Signs: Last Vital Signs Temp 98.7 F 11/06/18 08:00 Pulse 107 H 11/06/18 08:41 Resp 12 11/06/18 08:00 BP 124/79 11/06/18 08:41 Pulse Ox 99 11/06/18 08:00 - Labs Result Diagrams: 11/10/18 04:19 11/10/18 04:19 Labs: Laboratory Results - last 24 hr 11/05/18 11/05/18 11/05/18 20:53 21:00 21:00 WBC 9.4 RBC 5.32 H Hgb 13.6 Hct 46.5 MCV 87.5 MCH 25.6 L MCHC 29.3 L RDW 19.9 H Plt Count 140 MPV 8.8 Neut % (Auto) 69.8 Lymph % (Auto) 21.7 Ramsey % (Auto) 7.9 Eos % (Auto) 0.3 Baso % (Auto) 0.3 Neut # (Auto) 6.5 Lymph # (Auto) 2.0 Ramsey # (Auto) 0.7 Eos # (Auto) 0.0 Baso # (Auto) 0.0 PT INR APTT pCO2 pO2 HCO3 ABG pH ABG Total CO2 ABG O2 Saturation ABG O2 Content ABG Base Excess ABG Hemoglobin ABG Carboxyhemoglobin POC ABG HHb (Measured) ABG Methemoglobin ABG O2 Capacity Favian Test ABG Potassium VBG pH VBG pCO2 VBG HCO3 VBG Total CO2 VBG O2 Sat (Calc) VBG Base Excess VBG Potassium A-a O2 Difference Hgb O2 Saturation Glucose Lactate Vent Mode Mechanical Rate FiO2 Tidal Volume PEEP Crit Value Called To Crit Value Called By Crit Value Read Back Blood Gas Notified Time Sodium 145 Potassium 5.1 H Chloride 101 Carbon Dioxide 39 H Anion Gap 10 BUN 25 H Creatinine 1.1 Est GFR ( Amer) 58 Est GFR (Non-Af Amer) 48 POC Glucose (mg/dL) 169 H Random Glucose 196 H Lactic Acid Calcium 9.3 Phosphorus 6.2 H Magnesium 2.1 Total Bilirubin 0.5 AST 22 ALT 31 Alkaline Phosphatase 77 Troponin I 0.0320 NT-Pro-B Natriuret Pep 2650 H Total Protein 7.0 Albumin 3.5 Globulin 3.4 Albumin/Globulin Ratio 1.0 TSH 3rd Generation Arterial Blood Potassium Venous Blood Potassium Urine Color Urine Clarity Urine pH Ur Specific [place] Urine Protein Urine Glucose (UA) Urine Ketones Urine Blood Urine Nitrate Urine Bilirubin Urine Urobilinogen Ur Leukocyte Esterase Urine RBC (Auto) Urine Microscopic WBC Ur Squamous Epith Cells Ur Transition Epith Cell Ur Renal Epithelial Cell Amorphous Sediment Urine Bacteria Hyaline Casts 11/05/18 11/05/18 11/05/18 21:00 21:20 21:30 WBC RBC Hgb Hct MCV MCH MCHC RDW Plt Count MPV Neut % (Auto) Lymph % (Auto) Ramsey % (Auto) Eos % (Auto) Baso % (Auto) Neut # (Auto) Lymph # (Auto) Ramsey # (Auto) Eos # (Auto) Baso # (Auto) PT 11.8 INR 1.0 APTT 37.4 H pCO2 pO2 64 H HCO3 ABG pH ABG Total CO2 ABG O2 Saturation ABG O2 Content ABG Base Excess ABG Hemoglobin ABG Carboxyhemoglobin POC ABG HHb (Measured) ABG Methemoglobin ABG O2 Capacity Favian Test ABG Potassium VBG pH 6.99 L* VBG pCO2 > 150 H* VBG HCO3 VBG Total CO2 VBG O2 Sat (Calc) 92.7 H VBG Base Excess VBG Potassium 5.1 A-a O2 Difference Hgb O2 Saturation Glucose 194 H Lactate 0.7 Vent Mode Mechanical Rate FiO2 21.0 Tidal Volume PEEP Crit Value Called To Dr sandrine blanco Crit Value Called By 6075 Crit Value Read Back Y Blood Gas Notified Time 2125 Sodium 144.0 Potassium Chloride 104.0 Carbon Dioxide Anion Gap BUN Creatinine Est GFR ( Amer) Est GFR (Non-Af Amer) POC Glucose (mg/dL) Random Glucose Lactic Acid Calcium Phosphorus Magnesium Total Bilirubin AST ALT Alkaline Phosphatase Troponin I NT-Pro-B Natriuret Pep Total Protein Albumin Globulin Albumin/Globulin Ratio TSH 3rd Generation Arterial Blood Potassium Venous Blood Potassium 5.1 Urine Color Catherine Urine Clarity Turbid Urine pH 7.0 Ur Specific [place] 1.019 Urine Protein 100 Urine Glucose (UA) Neg Urine Ketones Negative Urine Blood Negative Urine Nitrate Negative Urine Bilirubin Negative Urine Urobilinogen 0.2-1.0 Ur Leukocyte Esterase Neg Urine RBC (Auto) 1 Urine Microscopic WBC 325 H Ur Squamous Epith Cells 1 Ur Transition Epith Cell < 1 Ur Renal Epithelial Cell 1 Amorphous Sediment Occ H Urine Bacteria Many H Hyaline Casts 11-20 H 11/05/18 11/06/18 11/06/18 22:00 01:31 04:25 WBC Cancelled RBC Cancelled Hgb Cancelled Hct Cancelled MCV Cancelled MCH Cancelled MCHC Cancelled RDW Cancelled Plt Count Cancelled MPV Cancelled Neut % (Auto) Cancelled Lymph % (Auto) Cancelled Ramsey % (Auto) Cancelled Eos % (Auto) Cancelled Baso % (Auto) Cancelled Neut # (Auto) Cancelled Lymph # (Auto) Cancelled Ramsey # (Auto) Cancelled Eos # (Auto) Cancelled Baso # (Auto) Cancelled PT INR APTT pCO2 81 H* pO2 29 L* 18 L HCO3 32.9 H ABG pH 7.32 L ABG Total CO2 44.2 H ABG O2 Saturation 69.3 L ABG O2 Content ABG Base Excess 11.9 H ABG Hemoglobin ABG Carboxyhemoglobin POC ABG HHb (Measured) ABG Methemoglobin ABG O2 Capacity Favian Test Yes ABG Potassium 5.3 H VBG pH 7.53 H VBG pCO2 43 VBG HCO3 32.4 VBG Total CO2 37.2 H VBG O2 Sat (Calc) 47.7 VBG Base Excess 11.8 H VBG Potassium 4.3 A-a O2 Difference 226.0 Hgb O2 Saturation Glucose 213 H 194 H Lactate 1.4 4.2 H* Vent Mode A/c Mechanical Rate 18 FiO2 50.0 50.0 Tidal Volume 500 PEEP 5 5 Crit Value Called To Dr sandrine blanco Crit Value Called By 6075 Mj Crit Value Read Back Y Y Blood Gas Notified Time 2215 134 Sodium 144.0 143.0 Potassium Chloride 107.0 103.0 Carbon Dioxide Anion Gap BUN Creatinine Est GFR ( Amer) Est GFR (Non-Af Amer) POC Glucose (mg/dL) Random Glucose Lactic Acid Calcium Phosphorus Magnesium Total Bilirubin AST ALT Alkaline Phosphatase Troponin I NT-Pro-B Natriuret Pep Total Protein Albumin Globulin Albumin/Globulin Ratio TSH 3rd Generation Arterial Blood Potassium 5.3 H Venous Blood Potassium 4.3 Urine Color Urine Clarity Urine pH Ur Specific [place] Urine Protein Urine Glucose (UA) Urine Ketones Urine Blood Urine Nitrate Urine Bilirubin Urine Urobilinogen Ur Leukocyte Esterase Urine RBC (Auto) Urine Microscopic WBC Ur Squamous Epith Cells Ur Transition Epith Cell Ur Renal Epithelial Cell Amorphous Sediment Urine Bacteria Hyaline Casts 11/06/18 11/06/18 11/06/18 04:25 04:25 04:29 WBC RBC Hgb Hct MCV MCH MCHC RDW Plt Count MPV Neut % (Auto) Lymph % (Auto) Ramsey % (Auto) Eos % (Auto) Baso % (Auto) Neut # (Auto) Lymph # (Auto) Ramsey # (Auto) Eos # (Auto) Baso # (Auto) PT INR APTT pCO2 pO2 HCO3 ABG pH ABG Total CO2 ABG O2 Saturation ABG O2 Content ABG Base Excess ABG Hemoglobin ABG Carboxyhemoglobin POC ABG HHb (Measured) ABG Methemoglobin ABG O2 Capacity Favian Test ABG Potassium VBG pH VBG pCO2 VBG HCO3 VBG Total CO2 VBG O2 Sat (Calc) VBG Base Excess VBG Potassium A-a O2 Difference Hgb O2 Saturation Glucose Lactate Vent Mode Mechanical Rate FiO2 Tidal Volume PEEP Crit Value Called To Crit Value Called By Crit Value Read Back Blood Gas Notified Time Sodium 144 Potassium 3.6 Chloride 101 Carbon Dioxide 33 H Anion Gap 14 BUN 29 H Creatinine 0.8 Est GFR ( Amer) > 60 Est GFR (Non-Af Amer) > 60 POC Glucose (mg/dL) 187 H Random Glucose 196 H Lactic Acid 2.3 H Calcium 9.2 Phosphorus Magnesium Total Bilirubin AST ALT Alkaline Phosphatase Troponin I 0.0430 NT-Pro-B Natriuret Pep Total Protein Albumin Globulin Albumin/Globulin Ratio TSH 3rd Generation 1.69 Arterial Blood Potassium Venous Blood Potassium Urine Color Urine Clarity Urine pH Ur Specific [place] Urine Protein Urine Glucose (UA) Urine Ketones Urine Blood Urine Nitrate Urine Bilirubin Urine Urobilinogen Ur Leukocyte Esterase Urine RBC (Auto) Urine Microscopic WBC Ur Squamous Epith Cells Ur Transition Epith Cell Ur Renal Epithelial Cell Amorphous Sediment Urine Bacteria Hyaline Casts 11/06/18 11/06/18 04:49 05:15 WBC 6.9 RBC 4.80 Hgb 12.2 Hct 40.2 MCV 83.7 D MCH 25.3 L MCHC 30.3 L RDW 18.6 H Plt Count 117 L D MPV Neut % (Auto) Lymph % (Auto) Ramsey % (Auto) Eos % (Auto) Baso % (Auto) Neut # (Auto) Lymph # (Auto) Ramsey # (Auto) Eos # (Auto) Baso # (Auto) PT INR APTT pCO2 44 pO2 73 L HCO3 34.7 H ABG pH 7.53 H ABG Total CO2 38.2 H ABG O2 Saturation 97.9 ABG O2 Content 16.6 ABG Base Excess 12.6 H ABG Hemoglobin 12.5 ABG Carboxyhemoglobin 2.2 H POC ABG HHb (Measured) 2.0 ABG Methemoglobin 1.4 ABG O2 Capacity 17.0 Favian Test Yes ABG Potassium VBG pH VBG pCO2 VBG HCO3 VBG Total CO2 VBG O2 Sat (Calc) VBG Base Excess VBG Potassium A-a O2 Difference 229.0 Hgb O2 Saturation 94.4 L Glucose Lactate Vent Mode Prvc/ac Mechanical Rate 12 FiO2 50.0 Tidal Volume 500 PEEP 5 Crit Value Called To Crit Value Called By Crit Value Read Back Blood Gas Notified Time Sodium Potassium Chloride Carbon Dioxide Anion Gap BUN Creatinine Est GFR ( Amer) Est GFR (Non-Af Amer) POC Glucose (mg/dL) Random Glucose Lactic Acid Calcium Phosphorus Magnesium Total Bilirubin AST ALT Alkaline Phosphatase Troponin I NT-Pro-B Natriuret Pep Total Protein Albumin Globulin Albumin/Globulin Ratio TSH 3rd Generation Arterial Blood Potassium Venous Blood Potassium Urine Color Urine Clarity Urine pH Ur Specific [place] Urine Protein Urine Glucose (UA) Urine Ketones Urine Blood Urine Nitrate Urine Bilirubin Urine Urobilinogen Ur Leukocyte Esterase Urine RBC (Auto) Urine Microscopic WBC Ur Squamous Epith Cells Ur Transition Epith Cell Ur Renal Epithelial Cell Amorphous Sediment Urine Bacteria Hyaline Casts Assessment & Plan (1) CHF (congestive heart failure) Status: Acute Priority: Medium (2) Dehydration Status: Acute (3) Pneumonia Status: Acute (4) Respiratory failure Status: Acute Priority: High (5) Severe sepsis Status: Acute Priority: High (6) UTI (urinary tract infection) Status: Acute
[2018-11-06] MEDS ORDERED: Levothyroxine 100 mcg (0.1 mg) Inj IVP SCH (09:00)
--- NOTE | 2018-11-06 09:51 | CT ---
Date of service: 11/05/2018 PROCEDURE: CT HEAD WITHOUT CONTRAST. HISTORY: Headache. COMPARISON: None available. TECHNIQUE: Axial computed tomography images were obtained through the head/brain without intravenous contrast. Radiation dose: Total exam DLP = 814.63 mGy-cm. This CT exam was performed using one or more of the following dose reduction techniques: Automated exposure control, adjustment of the mA and/or kV according to patient size, and/or use of iterative reconstruction technique. FINDINGS: HEMORRHAGE: No acute parenchymal, subarachnoid nor extra-axial hemorrhage. The BRAIN: Mild chronic periventricular white matter ischemic changes. There may also be a few scattered tiny chronic bilateral basal nuclei lacunar type infarcts. Moderate generalized volume loss. Mild vascular calcifications both carotid siphons and left vertebral artery. VENTRICLES: No obstructive hydrocephalus. CALVARIUM: Calvarium intact. PARANASAL SINUSES: Unremarkable as visualized. No significant inflammatory changes. MASTOID AIR CELLS: Unremarkable as visualized. No inflammatory changes. The right mastoid air is underpneumatized-sclerotic. Residual right-sided mastoid air cells are as well as the right middle ear canal are subtotally opacified.. The left mastoid air complex exhibits better aeration compared the right side though is also completely opacified including the left middle ear canal. OTHER FINDINGS: None. IMPRESSION: No acute intracranial hemorrhage. 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 Moderate generalized volume loss. Sclerotic underpneumatized right mastoid air complex with subtotal opacification including the right middle ear canal. There is also subtotal opacification left middle ear canal and mastoid air complex. .
--- NOTE | 2018-11-06 10:03 | RAD ---
Date of service: 11/06/2018 HISTORY: Follow up CHF COMPARISON: Comparison chest 11/05/2018. FINDINGS: In situ ETT, the tip which lies approximately 3.3 cm above mamadou. Unclear whether there is an NGT present. LUNGS: Bibasilar atelectasis and/or infiltrates with suspected bilateral effusions. Central pulmonary vasculature appears slightly less congested. PLEURA: As above. No pneumothorax apparent. CARDIOVASCULAR: Mild moderate aortic atherosclerotic calcification present. No change multi lead pacemaker/defibrillator Cardiomegaly no pulmonary vascular congestion. OSSEOUS STRUCTURES: No significant abnormalities. VISUALIZED UPPER ABDOMEN: Normal. OTHER FINDINGS: None. IMPRESSION: In situ ETT in good position.. Unclear whether there is an in situ NGT Bibasilar atelectasis and/or infiltrates with suspected bilateral effusions. Central pulmonary vasculature appears slightly less congested.
--- NOTE | 2018-11-06 12:30 | CARD ---
APPROVED REPORT Date of service: 11/05/2018 EKG Measurement Heart [id number] CA 122P [id number] <Conclusion> AV dual-paced rhythm Abnormal ECG
--- NOTE | 2018-11-06 13:05 | RAD ---
Date of service: 11/05/2018 HISTORY: Sepsis Patient COMPARISON: No prior. FINDINGS: LUNGS: No active pulmonary disease. PLEURA: No significant pleural effusion identified, no pneumothorax apparent. CARDIOVASCULAR: There is atherosclerotic calcification of the thoracic aortic arch. Normal heart size. AICD. ET tube appropriately positioned with its tip approximately 3.3 cm above tracheal mamadou. No pulmonary vascular congestion. OSSEOUS STRUCTURES: No significant abnormalities. VISUALIZED UPPER ABDOMEN: Normal. OTHER FINDINGS: None. IMPRESSION: No active disease. ET tube appropriately positioned. AICD.
[2018-11-06] MEDS: Lactobacillus Acidophilus 500 MU Cap PO SCH (16:03)
--- NOTE | 2018-11-06 21:52 | CARD ---
APPROVED REPORT Date of service: 11/06/2018 EXAM: Two-dimensional and M-mode echocardiogram with Doppler and color Doppler. Other Information Quality : AverageRhythm : Pacemaker Technically limited study due to Poor Echo Windows INDICATION Congestive Heart Failure Surgery/Intervention Pacemaker: 2D DIMENSIONS IVSd1.54 (0.7-1.1cm)LVDd4.11 (3.9-5.9cm) LVOT Diameter2.10 (1.8-2.4cm)PWd1.64 (0.7-1.1cm) IVSs1.76 (0.8-1.2cm)LVDs3.58 (2.5-4.0cm) FS (%) 12.9 %PWs1.65 (0.8-1.2cm) M-Mode DIMENSIONS Left Atrium (MM)5.15 (2.5-4.0cm)IVSd1.29 (0.7-1.1cm) Aortic Root3.20 (2.2-3.7cm)LVDd5.44 (4.0-5.6cm) Aortic Cusp Exc.1.95 (1.5-2.0cm)PWd1.14 (0.7-1.1cm) IVSs1.76 cmFS (%) 36 % LVDs3.46 (2.0-3.8cm)PWs1.58 cm Mitral Valve E/A ratio0.0 TDI E/Lateral E'0.0E/Medial E'0.0 LEFT VENTRICLE The left ventricle is normal size. There is normal left ventricular wall thickness. The left ventricular systolic function is likely normal. The estimated ejection fraction is 55-60% No regional wall motion abnormalities noted.. Transmitral Doppler flow pattern is Grade I-abnormal relaxation pattern. No left ventricle thrombus noted on this study. There is no ventricular septal defect visualized. There is no left ventricular aneurysm. There is no mass noted in the left ventricle. RIGHT VENTRICLE The right ventricle is normal size. There is normal right ventricular wall thickness. The right ventricular systolic function is normal. PPM lead is seen in right ventricle. ATRIA The left atrium is mild to moderately dilated. The right atrium size is normal. The interatrial septum is intact with no evidence for an atrial septal defect. AORTIC VALVE The aortic valve is normal in structure. No aortic regurgitation is present. There is no aortic valvular stenosis. There is no aortic valvular vegetation. MITRAL VALVE The mitral valve is normal in structure. There is no evidence of mitral valve prolapse. There is no mitral valve stenosis. There is trace mitral valve regurgitation noted. TRICUSPID VALVE The tricuspid valve is normal in structure. There is no tricuspid valve regurgitation noted. There is no tricuspid valve prolapse or vegetation. There is no tricuspid valve stenosis. PULMONIC VALVE The pulmonary valve is normal in structure. There is no pulmonic valvular regurgitation. There is no pulmonic valvular stenosis. GREAT VESSELS The aortic root is normal in size. The ascending aorta is normal in size. The pulmonary artery is normal. The IVC is not visualized. PERICARDIAL EFFUSION There is no pericardial effusion. There is no pleural effusion. <Conclusion> Technically difficult study. The estimated ejection fraction is 55-60% Transmitral Doppler flow pattern is Grade I-abnormal relaxation pattern. The left atrium is mild to moderately dilated. PPM lead is seen in right ventricle. There is trace mitral valve regurgitation noted.
[2018-11-06] MEDS ORDERED: Sterile Water for Inj 10 ML IV SCH (22:00)
[2018-11-07] MEDS: Albuterol-Ipratrop 3 mg / 0.5 (3 ml) UD INH SCH ×6 (05:22→23:06)
[2018-11-07 05:39] LABS: ABG ALLEN TEST YES; ARTERIAL BLOOD GAS HCO3 35.3 mmol/L (21-28); ARTERIAL BLOOD GAS HEMOGLOBIN 11.8 g/dL (11.7-17.4); ARTERIAL BLOOD GAS O2 CONTENT 14.6 ML/dL (15-23); ARTERIAL BLOOD GAS O2 SAT 91.1 % (95-98); ARTERIAL BLOOD GAS PCO2 51 mm/Hg (35-45); ARTERIAL BLOOD GAS PH 7.49 (7.35-7.45); ARTERIAL BLOOD GAS PO2 52 mm/Hg (80-100); ARTERIAL BLOOD GAS TCO2 40.5 mmol/L (22-28)
[2018-11-07] MEDS: Insulin Lispro (humaLOG) 100 Units/ml Inj SC SCH ×4 (06:00→23:17)
[2018-11-07 06:57] LABS: MEAN CELL VOLUME 83.1 fl (81.0-99.0); MEAN CORPUSCULAR HEMOGLOBIN 25.6 pg (27.0-31.0); MEAN CORPUSCULAR HGB CONC 30.9 g/dL (33.0-37.0); RBC 4.66 Mil/uL (3.80-5.20); RED CELL DISTRIBUTION WIDTH 19.9 % (11.5-14.5); WHITE BLOOD COUNT 7.3 K/uL (4.8-10.8)
[2018-11-07 07:36] LABS: ALBUMIN 2.9 g/dL (3.5-5.0); CALCIUM 8.6 mg/dL (8.4-10.2)
[2018-11-07] MEDS: Enoxaparin 30 mg Syringe SC SCH (08:16)
[2018-11-07] MEDS: Pantoprazole 40 mg EC Tab PO SCH (08:16)
--- NOTE | 2018-11-07 08:29 | CP.CCUPN ---
CCU Subjective - Physician Review Events Since Last Encounter (Free Text): 11/07/18 08:25 Off sedation at the moment BP stable requiring higher Fio2, as per ABG this AM CCU Objective - Vital Signs / Intake & Output Vital Signs (Last 4 hours): Vital Signs Temp Pulse Resp BP Pulse Ox 11/07/18 08:17 104 H 124/70 11/07/18 07:52 99.8 F H 97 H 12 122/74 100 11/07/18 06:00 99.7 F H 101 H 12 112/72 100 Intake and Output (Last 8hrs): Intake & Output 11/06/18 11/07/18 11/07/18 22:59 06:59 14:59 Intake Total 574 526 Output Total 250 600 0 Balance 324 -74 0 Weight 221 lb Intake: IV 4 6 Intake, Piggyback 200 100 Tube Feeding 120 320 Free Water Flush 250 100 Output: Urine 250 600 Urethral (Arias) 250 600 Stool 0 Other: # Bowel Movements 1 1 - Physical Exam Narrative Physical Exam (Free Text): 11/07/18 08:26 P/E Neck: No JVD Lungs: No ronchi, decreased breath sounds in bases bilaterally Ext: No edema Heart No gallop Ext: + 1 edema Head: Positive for: Atraumatic Pupils: Positive for: PERRL Mouth: Positive for: Moist Mucous Membranes Respiratory/Chest: Positive for: Decreased Breath Sounds (in the lower lobes b/l ), Other (course breath sounds, crackles in the R>L ) Abdomen: Positive for: Other (obese ). Negative for: Tenderness, Guarding Genitourinary/Pelvic Exam: Positive for: Other (Arias draining yellow urine ) Upper Extremity: Positive for: Other (moving b/l upper ext when stimulated. Mild edema of the hands b/l ) Lower Extremity: Positive for: Other (mild edema, scds on, moving both ext ) - Medications Active Medications: Active Medications Generic Name Dose Route Start Last Admin Trade Name Freq PRN Reason Stop Dose Admin Acetaminophen 650 mg 11/06/18 16:00 11/06/18 16:05 Tylenol 325mg Tab PO 650 mg Q6 PRN Administration Fever >100.4 F Albuterol/Ipratropium 3 ml 11/06/18 04:00 11/07/18 07:31 Duoneb 3 Mg/0.5 Mg (3 Ml) Ud INH 11/08/18 04:01 3 ml RQ4 JEANA Administration Carvedilol 3.125 mg 11/06/18 09:00 11/07/18 08:17 Coreg PO 3.125 mg Q12 JEANA Administration Dextrose 0 ml 11/06/18 08:46 Dextrose 50% Inj IV STAT PRN Hypoglycemia Protocol Protocol Dextrose 0 gm 11/06/18 08:46 Glutose 15 PO ONCE PRN Hypoglycemia Protocol Protocol Enoxaparin Sodium 30 mg 11/06/18 09:00 11/07/18 08:16 Lovenox SC 30 mg DAILY JEANA Administration Protocol Furosemide 40 mg 11/07/18 09:00 Lasix IVP BID JEANA Glucagon 0 mg 11/06/18 08:46 Glucagen Diagnostic Kit IM STAT PRN Hypoglycemia Protocol Protocol Azithromycin 500 mg/ Sodium 250 mls @ 250 mls/hr 11/06/18 09:00 11/06/18 08:44 Chloride IVPB 250 mls/hr DAILY JEANA Administration Protocol Piperacillin Sod/Tazobactam 100 mls @ 100 mls/hr 11/06/18 04:00 11/07/18 04:05 Sod 2.25 gm/ Sodium Chloride IVPB 100 mls/hr Q6 JEANA Administration Protocol Insulin Human Lispro 0 units 11/06/18 00:15 11/07/18 06:00 Humalog SC 1 units Q6H JEANA Administration Protocol Lactobacillus Acidophilus 1 cap 11/06/18 17:00 11/06/18 16:03 Bacid Acidophilus PO 1 cap BID JEANA Administration Levothyroxine Sodium 37.5 mcg 11/07/18 09:00 Synthroid IVP DAILY JEANA Pantoprazole Sodium 40 mg 11/06/18 09:00 11/07/18 08:16 Protonix Ec Tab PO 40 mg DAILY JEANA Administration - Patient Studies Lab Studies: Microbiology Studies 11/05/18 23:15 Blood Culture - Preliminary Blood NO GROWTH AFTER 24 HOURS 11/05/18 21:00 Blood Culture - Preliminary Blood NO GROWTH AFTER 24 HOURS Lab Studies 11/07/18 11/07/18 11/07/18 Range/Units 05:52 05:30 05:30 WBC 7.3 (4.8-10.8) K/uL RBC 4.66 (3.80-5.20) Mil/uL Hgb 12.0 (12.0-16.0) g/dL Hct 38.7 (34.0-47.0) % MCV 83.1 (81.0-99.0) fl MCH 25.6 L (27.0-31.0) pg MCHC 30.9 L (33.0-37.0) g/dL RDW 19.9 H (11.5-14.5) % Plt Count 135 (130-400) K/uL pCO2 (35-45) mm/Hg pO2 (80-100) mm/Hg HCO3 (21-28) mmol/L ABG pH (7.35-7.45) ABG Total CO2 (22-28) mmol/L ABG O2 Saturation (95-98) % ABG O2 Content (15-23) ML/dL ABG Base Excess (-2.0-3.0) mmol/L ABG Hemoglobin (11.7-17.4) g/dL ABG Carboxyhemoglobin (0.5-1.5) % POC ABG HHb (Measured) (0.0-5.0) % ABG Methemoglobin (0.0-3.0) % ABG O2 Capacity (16-24) mL/dL Favian Test A-a O2 Difference mm/Hg Hgb O2 Saturation (95.0-98.0) % Vent Mode Mechanical Rate FiO2 % Tidal Volume PEEP Sodium 142 (132-148) mmol/l Potassium 3.4 L (3.6-5.0) MMOL/L Chloride 101 (98-107) mmol/L Carbon Dioxide 35 H (22-30) mmol/L Anion Gap 9 L (10-20) BUN 33 H (7-17) mg/dl Creatinine 1.1 (0.7-1.2) mg/dl Est GFR ( Amer) 58 Est GFR (Non-Af Amer) 48 POC Glucose (mg/dL) 156 H (65-110) mg/dL Random Glucose 156 H (65-105) mg/dL Hemoglobin A1c (4.2-6.5) % Calcium 8.6 (8.4-10.2) mg/dL Phosphorus 3.4 (2.5-4.5) mg/dl Magnesium 1.8 (1.6-2.3) MG/DL Total Bilirubin 1.0 (0.2-1.3) mg/dl AST 25 (14-36) U/L ALT 29 (9-52) U/L Alkaline Phosphatase 59 (38-126) U/L Ammonia (11-51) umo/L Troponin I (0.00-0.120) ng/mL NT-Pro-B Natriuret Pep 2590 H (0-900) pg/ml Total Protein 5.8 L (6.3-8.2) G/DL Albumin 2.9 L (3.5-5.0) g/dL Globulin 3.0 (2.2-3.9) gm/dL Albumin/Globulin Ratio 1.0 (1.0-2.1) Procalcitonin (0.19-0.49) NG/ML 11/07/18 11/06/18 11/06/18 Range/Units 05:29 23:35 17:14 WBC (4.8-10.8) K/uL RBC (3.80-5.20) Mil/uL Hgb (12.0-16.0) g/dL Hct (34.0-47.0) % MCV (81.0-99.0) fl MCH (27.0-31.0) pg MCHC (33.0-37.0) g/dL RDW (11.5-14.5) % Plt Count (130-400) K/uL pCO2 51 H (35-45) mm/Hg pO2 52 L (80-100) mm/Hg HCO3 35.3 H (21-28) mmol/L ABG pH 7.49 H (7.35-7.45) ABG Total CO2 40.5 H (22-28) mmol/L ABG O2 Saturation 91.1 L (95-98) % ABG O2 Content 14.6 L (15-23) ML/dL ABG Base Excess 13.6 H (-2.0-3.0) mmol/L ABG Hemoglobin 11.8 (11.7-17.4) g/dL ABG Carboxyhemoglobin 1.9 H (0.5-1.5) % POC ABG HHb (Measured) 8.6 H (0.0-5.0) % ABG Methemoglobin 1.5 (0.0-3.0) % ABG O2 Capacity 16.0 (16-24) mL/dL Favian Test Yes A-a O2 Difference 241.0 mm/Hg Hgb O2 Saturation 88.0 L (95.0-98.0) % Vent Mode A/c Mechanical Rate 12 FiO2 50.0 % Tidal Volume 500 PEEP 8 Sodium (132-148) mmol/l Potassium (3.6-5.0) MMOL/L Chloride (98-107) mmol/L Carbon Dioxide (22-30) mmol/L Anion Gap (10-20) BUN (7-17) mg/dl Creatinine (0.7-1.2) mg/dl Est GFR ( Amer) Est GFR (Non-Af Amer) POC Glucose (mg/dL) 134 H 167 H (65-110) mg/dL Random Glucose (65-105) mg/dL Hemoglobin A1c (4.2-6.5) % Calcium (8.4-10.2) mg/dL Phosphorus (2.5-4.5) mg/dl Magnesium (1.6-2.3) MG/DL Total Bilirubin (0.2-1.3) mg/dl AST (14-36) U/L ALT (9-52) U/L Alkaline Phosphatase (38-126) U/L Ammonia (11-51) umo/L Troponin I (0.00-0.120) ng/mL NT-Pro-B Natriuret Pep (0-900) pg/ml Total Protein (6.3-8.2) G/DL Albumin (3.5-5.0) g/dL Globulin (2.2-3.9) gm/dL Albumin/Globulin Ratio (1.0-2.1) Procalcitonin (0.19-0.49) NG/ML 11/06/18 11/06/18 11/06/18 Range/Units 11:06 10:10 10:07 WBC (4.8-10.8) K/uL RBC (3.80-5.20) Mil/uL Hgb (12.0-16.0) g/dL Hct (34.0-47.0) % MCV (81.0-99.0) fl MCH (27.0-31.0) pg MCHC (33.0-37.0) g/dL RDW (11.5-14.5) % Plt Count (130-400) K/uL pCO2 (35-45) mm/Hg pO2 (80-100) mm/Hg HCO3 (21-28) mmol/L ABG pH (7.35-7.45) ABG Total CO2 (22-28) mmol/L ABG O2 Saturation (95-98) % ABG O2 Content (15-23) ML/dL ABG Base Excess (-2.0-3.0) mmol/L ABG Hemoglobin (11.7-17.4) g/dL ABG Carboxyhemoglobin (0.5-1.5) % POC ABG HHb (Measured) (0.0-5.0) % ABG Methemoglobin (0.0-3.0) % ABG O2 Capacity (16-24) mL/dL Favian Test A-a O2 Difference mm/Hg Hgb O2 Saturation (95.0-98.0) % Vent Mode Mechanical Rate FiO2 % Tidal Volume PEEP Sodium (132-148) mmol/l Potassium (3.6-5.0) MMOL/L Chloride (98-107) mmol/L Carbon Dioxide (22-30) mmol/L Anion Gap (10-20) BUN (7-17) mg/dl Creatinine (0.7-1.2) mg/dl Est GFR ( Amer) Est GFR (Non-Af Amer) POC Glucose (mg/dL) 176 H (65-110) mg/dL Random Glucose (65-105) mg/dL Hemoglobin A1c (4.2-6.5) % Calcium (8.4-10.2) mg/dL Phosphorus (2.5-4.5) mg/dl Magnesium (1.6-2.3) MG/DL Total Bilirubin (0.2-1.3) mg/dl AST (14-36) U/L ALT (9-52) U/L Alkaline Phosphatase (38-126) U/L Ammonia 14 (11-51) umo/L Troponin I 0.0640 (0.00-0.120) ng/mL NT-Pro-B Natriuret Pep (0-900) pg/ml Total Protein (6.3-8.2) G/DL Albumin (3.5-5.0) g/dL Globulin (2.2-3.9) gm/dL Albumin/Globulin Ratio (1.0-2.1) Procalcitonin (0.19-0.49) NG/ML 11/06/18 11/06/18 Range/Units 04:25 04:25 WBC (4.8-10.8) K/uL RBC (3.80-5.20) Mil/uL Hgb (12.0-16.0) g/dL Hct (34.0-47.0) % MCV (81.0-99.0) fl MCH (27.0-31.0) pg MCHC (33.0-37.0) g/dL RDW (11.5-14.5) % Plt Count (130-400) K/uL pCO2 (35-45) mm/Hg pO2 (80-100) mm/Hg HCO3 (21-28) mmol/L ABG pH (7.35-7.45) ABG Total CO2 (22-28) mmol/L ABG O2 Saturation (95-98) % ABG O2 Content (15-23) ML/dL ABG Base Excess (-2.0-3.0) mmol/L ABG Hemoglobin (11.7-17.4) g/dL ABG Carboxyhemoglobin (0.5-1.5) % POC ABG HHb (Measured) (0.0-5.0) % ABG Methemoglobin (0.0-3.0) % ABG O2 Capacity (16-24) mL/dL Favian Test A-a O2 Difference mm/Hg Hgb O2 Saturation (95.0-98.0) % Vent Mode Mechanical Rate FiO2 % Tidal Volume PEEP Sodium (132-148) mmol/l Potassium (3.6-5.0) MMOL/L Chloride (98-107) mmol/L Carbon Dioxide (22-30) mmol/L Anion Gap (10-20) BUN (7-17) mg/dl Creatinine (0.7-1.2) mg/dl Est GFR ( Amer) Est GFR (Non-Af Amer) POC Glucose (mg/dL) (65-110) mg/dL Random Glucose (65-105) mg/dL Hemoglobin A1c 6.5 (4.2-6.5) % Calcium (8.4-10.2) mg/dL Phosphorus (2.5-4.5) mg/dl Magnesium (1.6-2.3) MG/DL Total Bilirubin (0.2-1.3) mg/dl AST (14-36) U/L ALT (9-52) U/L Alkaline Phosphatase (38-126) U/L Ammonia (11-51) umo/L Troponin I (0.00-0.120) ng/mL NT-Pro-B Natriuret Pep (0-900) pg/ml Total Protein (6.3-8.2) G/DL Albumin (3.5-5.0) g/dL Globulin (2.2-3.9) gm/dL Albumin/Globulin Ratio (1.0-2.1) Procalcitonin 0.05 L (0.19-0.49) NG/ML Laboratory Results - last 24 hr 11/06/18 11/06/18 11/06/18 04:25 04:25 10:07 WBC RBC Hgb Hct MCV MCH MCHC RDW Plt Count pCO2 pO2 HCO3 ABG pH ABG Total CO2 ABG O2 Saturation ABG O2 Content ABG Base Excess ABG Hemoglobin ABG Carboxyhemoglobin POC ABG HHb (Measured) ABG Methemoglobin ABG O2 Capacity Favian Test A-a O2 Difference Hgb O2 Saturation Vent Mode Mechanical Rate FiO2 Tidal Volume PEEP Sodium Potassium Chloride Carbon Dioxide Anion Gap BUN Creatinine Est GFR ( Amer) Est GFR (Non-Af Amer) POC Glucose (mg/dL) Random Glucose Hemoglobin A1c 6.5 Calcium Phosphorus Magnesium Total Bilirubin AST ALT Alkaline Phosphatase Ammonia Troponin I 0.0640 NT-Pro-B Natriuret Pep Total Protein Albumin Globulin Albumin/Globulin Ratio Procalcitonin 0.05 L 11/06/18 11/06/18 11/06/18 10:10 11:06 17:14 WBC RBC Hgb Hct MCV MCH MCHC RDW Plt Count pCO2 pO2 HCO3 ABG pH ABG Total CO2 ABG O2 Saturation ABG O2 Content ABG Base Excess ABG Hemoglobin ABG Carboxyhemoglobin POC ABG HHb (Measured) ABG Methemoglobin ABG O2 Capacity Favian Test A-a O2 Difference Hgb O2 Saturation Vent Mode Mechanical Rate FiO2 Tidal Volume PEEP Sodium Potassium Chloride Carbon Dioxide Anion Gap BUN Creatinine Est GFR ( Amer) Est GFR (Non-Af Amer) POC Glucose (mg/dL) 176 H 167 H Random Glucose Hemoglobin A1c Calcium Phosphorus Magnesium Total Bilirubin AST ALT Alkaline Phosphatase Ammonia 14 Troponin I NT-Pro-B Natriuret Pep Total Protein Albumin Globulin Albumin/Globulin Ratio Procalcitonin 11/06/18 11/07/18 11/07/18 23:35 05:29 05:30 WBC 7.3 RBC 4.66 Hgb 12.0 Hct 38.7 MCV 83.1 MCH 25.6 L MCHC 30.9 L RDW 19.9 H Plt Count 135 pCO2 51 H pO2 52 L HCO3 35.3 H ABG pH 7.49 H ABG Total CO2 40.5 H ABG O2 Saturation 91.1 L ABG O2 Content 14.6 L ABG Base Excess 13.6 H ABG Hemoglobin 11.8 ABG Carboxyhemoglobin 1.9 H POC ABG HHb (Measured) 8.6 H ABG Methemoglobin 1.5 ABG O2 Capacity 16.0 Favian Test Yes A-a O2 Difference 241.0 Hgb O2 Saturation 88.0 L Vent Mode A/c Mechanical Rate 12 FiO2 50.0 Tidal Volume 500 PEEP 8 Sodium Potassium Chloride Carbon Dioxide Anion Gap BUN Creatinine Est GFR ( Amer) Est GFR (Non-Af Amer) POC Glucose (mg/dL) 134 H Random Glucose Hemoglobin A1c Calcium Phosphorus Magnesium Total Bilirubin AST ALT Alkaline Phosphatase Ammonia Troponin I NT-Pro-B Natriuret Pep Total Protein Albumin Globulin Albumin/Globulin Ratio Procalcitonin 11/07/18 11/07/18 05:30 05:52 WBC RBC Hgb Hct MCV MCH MCHC RDW Plt Count pCO2 pO2 HCO3 ABG pH ABG Total CO2 ABG O2 Saturation ABG O2 Content ABG Base Excess ABG Hemoglobin ABG Carboxyhemoglobin POC ABG HHb (Measured) ABG Methemoglobin ABG O2 Capacity Favian Test A-a O2 Difference Hgb O2 Saturation Vent Mode Mechanical Rate FiO2 Tidal Volume PEEP Sodium 142 Potassium 3.4 L Chloride 101 Carbon Dioxide 35 H Anion Gap 9 L BUN 33 H Creatinine 1.1 Est GFR ( Amer) 58 Est GFR (Non-Af Amer) 48 POC Glucose (mg/dL) 156 H Random Glucose 156 H Hemoglobin A1c Calcium 8.6 Phosphorus 3.4 Magnesium 1.8 Total Bilirubin 1.0 AST 25 ALT 29 Alkaline Phosphatase 59 Ammonia Troponin I NT-Pro-B Natriuret Pep 2590 H Total Protein 5.8 L Albumin 2.9 L Globulin 3.0 Albumin/Globulin Ratio 1.0 Procalcitonin Radiology Impressions: Radiology Impressions Chest X-Ray 11/05/18 20:57 IMPRESSION: No active disease. ET tube appropriately positioned. AICD. Head CT 11/05/18 21:25 IMPRESSION: No acute intracranial hemorrhage. 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 Moderate generalized volume loss. Sclerotic underpneumatized right mastoid air complex with subtotal opacification including the right middle ear canal. There is also subtotal opacification left middle ear canal and mastoid air complex. . Chest X-Ray 11/06/18 05:00 IMPRESSION: In situ ETT in good position.. Unclear whether there is an in situ NGT Bibasilar atelectasis and/or infiltrates with suspected bilateral effusions. Central pulmonary vasculature appears slightly less congested. Fingerstick Blood Sugar Results: 156 Critical Care Progress Note - Vent Settings MODE:: ASSIST CONTROL - Extremities/Vascular Does the Patient need a Arias Catheter?: Yes - Prophylaxis GI Prophylaxis GI: PPI - Prophylaxis DVT Prophylaxis DVT: Lovenox Assessment/Plan - Assessment and Plan (Free Text) Plan: A/P: 82 YO female with h/o CHF, DM, HTN, Hypothyroidism was admitted for AMS, and acute respiratory distress req intubation (in ED 11/05/18). Pt still intubated, off sedation Requiring higher Fio2 Neuro: Intubated, sedated -CT head no acute findings -AMS likely 2/2 to hypoxia, hypercarbia (resolved this AM) - Off sedation, will give only if needed Cardiology: Acute CHF, HTN, pacemaker --Lasix 40 mg IV q 12 h -c/w bp meds -echo ordered -Cardiology consulted: Dr. Kim Respiratory: Intubated -s/p intubation 11/05 Pulm congestion betetr, but resp status not improving CXR showed bilateral pleural effusion, will do CT to evaluate the pleural effusion as the main cause of resp failure, and if thoracentesis indicated. - Not ready for wean off at this point -Pulmnary consult with Dr Prince -c/w Probiotic and PPI ID: pneumonia vs atelectasis, lactic acidosis -c/w abx -repeat lactate in AM Endocrine: Hypothyroidism, NIDDM -HbA1c 6.5 (01/2017), follow up new hbA1c -c/w low dose insulin correction, hypoglycemia -start IV levo 37.5mcg Prophylx -c.w PPI, probiotic -c.w Lovenox and SCDs
[2018-11-07] MEDS: Levothyroxine 100 mcg (0.1 mg) Inj IVP SCH (08:37)
[2018-11-07] MEDS: Azithromycin 500 MG in Sodium Chloride 0.9% 250 ML IVPB SCH (08:38)
[2018-11-07] MEDS: Lactobacillus Acidophilus 500 MU Cap PO SCH ×2 (09:00→16:06)
[2018-11-07] MEDS: Propofol 10 mg/ml 1,000 MG/100 ML VIAL IV SCH ×2 (09:12→18:33)
[2018-11-07] MEDS: Potassium Chloride 20 mEq ER Tab PO SCH (09:22)
[2018-11-07] MEDS ORDERED: Sodium Chloride 3% for Inhalation 4 ML VIAL.NEB IH PRN (11:54)
--- NOTE | 2018-11-07 11:56 | PN ---
DATE: 11/07/2018 SUBJECTIVE: The patient seen and examined. Interim events noted. Consults noted and appreciated. Cardiology, Infectious Disease and Instructional Design Specialist interventions noted and appreciated. The patient remains in intensive care unit, on ventilator, awake, responsive, but nonconversant, not able to provide informative history or review of system. No specific issue reported by nursing staff. PHYSICAL EXAMINATION: GENERAL: The patient is orally intubated, on mechanical ventilation via endotracheal tube, tolerating current vent setting without any acute respiratory distress. VITAL SIGNS: Stable. HEART: S1 and S2, normal and regular. LUNGS: The patient has bilateral crepitation and transmitted sounds. ABDOMEN: Soft, nontender. No organomegaly. No fluid. Bowel sounds are plus and normal. EXTREMITIES: No edema. No calf swelling. No tenderness. No acute ischemia. TOOL PROCUREMENT COORDINATOR: Exam is essentially unchanged. The patient is much more awake and responsive, seems to be understanding. DIAGNOSTIC DATA: Available diagnostic data reviewed. Telemetry monitoring does not show significant arrhythmias. ASSESSMENT AND PLAN: The patient is improving. Did not tolerate continuous positive airway pressure yesterday. Plan as ordered. Nakul Zhang MD
--- NOTE | 2018-11-07 14:29 | RAD ---
Date of service: 11/07/2018 HISTORY: Intubated COMPARISON: Comparison chest 11/06/2018. FINDINGS: In situ ETT, tip of which lies approximately 3.8 cm above mamadou. NGT tip overlies left upper quadrant of the abdomen LUNGS: Mild bibasilar atelectasis with what appears represent small bilateral effusions. Interval improvement previously noted mild central pulmonary venous congestion PLEURA: As above. No pneumothorax apparent. CARDIOVASCULAR: Mild aortic atherosclerotic calcification present. Cardiomegaly.. No change multi lead pacemaker/defibrillator. OSSEOUS STRUCTURES: No significant abnormalities. VISUALIZED UPPER ABDOMEN: Normal. OTHER FINDINGS: None. IMPRESSION: ETT and NGT as above. Mild bibasilar atelectasis with what appears represent small bilateral effusions. Interval improvement previously noted mild central pulmonary venous congestion
--- NOTE | 2018-11-07 15:51 | CT ---
Date of service: 11/07/2018 PROCEDURE: CT Chest without contrast HISTORY: Pleural effusion COMPARISON: Comparison made with prior chest radiograph earlier same day. TECHNIQUE: Contiguous axial images were obtained through the chest without intravenous contrast enhancement. Sagittal and coronal reconstructions were performed. Radiation dose: Total exam DLP = 576.52 mGy-cm. This CT exam was performed using one or more of the following dose reduction techniques: Automated exposure control, adjustment of the mA and/or kV according to patient size, and/or use of iterative reconstruction technique. FINDINGS: Note that the examination is limited due to streak and beam hardening artifact arising from the upper extremities which have not been moved from the field of view. Overlying cardiac monitoring leads as well as pacemaker/defibrillator hardware further contribute to streak artifact. In situ endotracheal tube in good position above the mamadou. In situ NGT, the tip of which lies in the gastric lumen... LUNGS: Mild atelectasis both lower lung almonte with small bilateral effusions. Apparent calcified granuloma superior aspect left lower lobe. MEDIASTINUM: Marked cardiomegaly.. Suspect small pericardial effusion. The mild dilatation of the ascending thoracic aorta measuring approximately 4 cm. Descending thoracic aorta measures approximately 3.2 cm. Pulmonary trunk measures approximately 3.3 cm. Mild aortic atherosclerotic calcification. The trachea midline and patent. No obvious central endoluminal lesions however note that in situ endotracheal tube limits evaluation to some degree. There are a few small mediastinal lymph nodes. Evaluation for hilar adenopathy limited due to the lack of circulating intravenous contrast material however there does appear to be calcified left posterior infrahilar lymph node.. There is a small hiatal hernia. PLEURA: As above.. No pneumothorax. BONES: Multilevel degenerative spondylosis of the thoracic spine with mild dextroscoliosis. UPPER ABDOMEN: Spleen is mildly enlarged measuring approximately 13.5 cm in greatest transverse dimension. Thyroid gland is slightly enlarged and heterogeneous. OTHER FINDINGS: None. IMPRESSION: ETT and NGT as above. Mild atelectasis both lung almonte with with small bilateral effusions.. Small calcified granuloma left lower lobe Cardiomegaly. Small pericardial effusion. Mild aneurysmal dilatation of the ascending thoracic aorta. Splenomegaly.
--- NOTE | 2018-11-07 21:22 | CON ---
DATE: 11/07/2018 HISTORY OF PRESENT ILLNESS: Ms. Guo is an 82-year-old female who was admitted with congestive heart failure and respiratory failure. She is presently intubated and being ventilated. She is unable to give any history. According to her medical records, she was admitted to [facility] in early 10/2018 for hypoxia and hypercapnia. She was treated and discharged to [facility] where she was sent to the emergency room because of altered mental status and lethargy. PAST MEDICAL HISTORY: Remarkable for hypertension, congestive heart failure, diabetes, GERD, and hypothyroidism. PAST SURGICAL HISTORY: She is status post pacemaker insertion and has a history of knee surgery. PHYSICAL EXAMINATION: GENERAL: The patient is responsive to touch and verbal commands. She is on a respirator, intubated, and presently has propofol infusion. SKIN: Shows poor turgor. HEENT: Pupils are reactive. Mouth: ET tube in place. LUNGS: Bilateral coarse rales. HEART: S1 and S2. ABDOMEN: Benign. EXTREMITIES: Pedal edema and thumb edema. LABORATORY DATA: Chest x-ray is remarkable for pulmonary congestion, bibasilar atelectasis and infiltrates with suspected effusion. ET tube is in good position, and there is calcification of the aorta. WBC 7.3, hemoglobin 12, platelet count 135,000. Sodium 142, potassium 3.4, BUN 33, creatinine 1.1. Troponin pending. ProBNP is 2590. ABG: The pH of 7.49, pCO2 of 51, pO2 of 52, bicarbonate of 35.3. This is on assist control of 12, tidal volume 500, FiO2 of 50%, and PEEP of 8. IMPRESSION: Acute respiratory failure, congestive heart failure, one has to rule out superimposed pneumonia, history of hypertension, and history of thyroid disease. PLAN: To continue therapy as ordered. Serial chest x-rays and arterial blood gasses to follow up progress of respiratory failure. Extubate once clinically stable. We will continue to follow with you. Empiric antibiotic therapy is already given. Juancarlos Reeves MD
[2018-11-08] MEDS: Albuterol-Ipratrop 3 mg / 0.5 (3 ml) UD INH SCH (04:57)
[2018-11-08 05:06] LABS: ABG ALLEN TEST YES; ARTERIAL BLOOD GAS HCO3 35.7 mmol/L (21-28); ARTERIAL BLOOD GAS HEMOGLOBIN 12.5 g/dL (11.7-17.4); ARTERIAL BLOOD GAS O2 CAPACITY 17.3 mL/dL (16-24); ARTERIAL BLOOD GAS O2 CONTENT 17.1 ML/dL (15-23); ARTERIAL BLOOD GAS O2 SAT 98.7 % (95-98); ARTERIAL BLOOD GAS PCO2 33 mm/Hg (35-45); ARTERIAL BLOOD GAS PH 7.64 (7.35-7.45); ARTERIAL BLOOD GAS PO2 141 mm/Hg (80-100); ARTERIAL BLOOD GAS TCO2 36.5 mmol/L (22-28)
[2018-11-08] MEDS: Insulin Lispro (humaLOG) 100 Units/ml Inj SC SCH ×4 (06:30→18:10)
[2018-11-08 06:38] LABS: HEMOGLOBIN 12.1 g/dL (12.0-16.0); MEAN CELL VOLUME 82.5 fl (81.0-99.0); MEAN CORPUSCULAR HEMOGLOBIN 25.7 pg (27.0-31.0); MEAN CORPUSCULAR HGB CONC 31.1 g/dL (33.0-37.0); RBC 4.7 Mil/uL (3.80-5.20); RED CELL DISTRIBUTION WIDTH 20.2 % (11.5-14.5); WHITE BLOOD COUNT 2.9 K/uL (4.8-10.8)
[2018-11-08 06:52] LABS: ALBUMIN 2.9 g/dL (3.5-5.0); ALT/SGPT 34 U/L (9-52); AST/SGOT 25 U/L (14-36); BLOOD UREA NITROGEN 32 mg/dl (7-17); CALCIUM 8.3 mg/dL (8.4-10.2); GFR NON-AFRICAN AMERICAN 53
[2018-11-08] MEDS: Propofol 10 mg/ml 1,000 MG/100 ML VIAL IV SCH ×2 (08:05→20:10)
--- NOTE | 2018-11-08 08:35 | CP.CCUPN ---
CCU Subjective - Physician Review Events Since Last Encounter (Free Text): 11/08/18 08:34 Sedated, intubated, had fever last night, culture so far negative, HAd CT chest without contrast, only small pleural effusion, bilaterllay. On IV lasix 40 mg BID, Ox sat much better today but developed sever alkalemia , with PH > 7.6, CCU Objective - Vital Signs / Intake & Output Vital Signs (Last 4 hours): Vital Signs Temp Pulse Resp BP Pulse Ox 11/08/18 08:00 99.8 F H 99 H 13 103/47 L 100 11/08/18 07:00 103 H 13 101/56 L 100 11/08/18 06:00 96 H 16 99/50 L 100 11/08/18 05:00 97 H 12 104/64 100 Intake and Output (Last 8hrs): Intake & Output 11/07/18 11/08/18 11/08/18 22:59 06:59 14:59 Intake Total 744 590 90 Output Total 1320 900 Balance -576 -310 90 Weight 218 lb 6.4 oz Intake: IV 124 70 Intake, Piggyback 100 100 10 Tube Feeding 320 320 80 Free Water Flush 200 100 Output: Urine 1320 900 Urethral (Arias) 1320 900 Other: # Bowel Movements 1 - Physical Exam Narrative Physical Exam (Free Text): 11/08/18 08:36 P/E Neck: No JVD Lungs" decreased breath sounds, bases abdomen; soft, non-tender Ext: + 1 edema Heart" No gallop Head: Positive for: Atraumatic Pupils: Positive for: PERRL Mouth: Positive for: Moist Mucous Membranes Respiratory/Chest: Positive for: Decreased Breath Sounds (in the lower lobes b/l ), Other (course breath sounds, crackles in the R>L ) Abdomen: Positive for: Other (obese ). Negative for: Tenderness, Guarding Genitourinary/Pelvic Exam: Positive for: Other (Arias draining yellow urine ) Upper Extremity: Positive for: Other (moving b/l upper ext when stimulated. Mild edema of the hands b/l ) Lower Extremity: Positive for: Other (mild edema, scds on, moving both ext ) - Medications Active Medications: Active Medications Generic Name Dose Route Start Last Admin Trade Name Freq PRN Reason Stop Dose Admin Acetaminophen 650 mg 11/06/18 16:00 11/08/18 01:56 Tylenol 325mg Tab PO 650 mg Q6 PRN Administration Fever >100.4 F Acetazolamide 250 mg 11/08/18 09:00 Diamox 250 Mg Tab PO BID JEANA Carvedilol 3.125 mg 11/06/18 09:00 11/07/18 21:06 Coreg PO 3.125 mg Q12 JEANA Administration Dextrose 0 ml 11/06/18 08:46 Dextrose 50% Inj IV STAT PRN Hypoglycemia Protocol Protocol Dextrose 0 gm 11/06/18 08:46 Glutose 15 PO ONCE PRN Hypoglycemia Protocol Protocol Enoxaparin Sodium 30 mg 11/06/18 09:00 11/07/18 08:16 Lovenox SC 30 mg DAILY JEANA Administration Protocol Glucagon 0 mg 11/06/18 08:46 Glucagen Diagnostic Kit IM STAT PRN Hypoglycemia Protocol Protocol Azithromycin 500 mg/ Sodium 250 mls @ 250 mls/hr 11/06/18 09:00 11/07/18 08:38 Chloride IVPB 250 mls/hr DAILY JEANA Administration Protocol Piperacillin Sod/Tazobactam 100 mls @ 100 mls/hr 11/06/18 04:00 11/08/18 04:17 Sod 2.25 gm/ Sodium Chloride IVPB 100 mls/hr Q6 JEANA Administration Protocol Propofol 1,000 mg in 100 mls @ 3.007 mls/hr 11/07/18 08:45 11/08/18 04:19 Diprivan IV 11/08/18 08:41 15 mcg/kg/min .Q24H JEANA 9.022 mls/hr Titration Protocol 5 MCG/KG/MIN Potassium Chloride 100 mls @ 50 mls/hr 11/08/18 10:00 Potassium Chloride 20 Meq/100 Ml IV 11/08/18 15:59 Q2 JEANA Insulin Human Lispro 0 units 11/06/18 00:15 11/08/18 06:30 Humalog SC 1 units Q6H JEANA Administration Protocol Lactobacillus Acidophilus 1 cap 11/06/18 17:00 11/07/18 16:06 Bacid Acidophilus PO 1 cap BID JEANA Administration Levothyroxine Sodium 37.5 mcg 11/07/18 09:00 11/07/18 08:37 Synthroid IVP 37.5 mcg DAILY JEANA Administration Pantoprazole Sodium 40 mg 11/06/18 09:00 11/07/18 08:16 Protonix Ec Tab PO 40 mg DAILY JEANA Administration Potassium Chloride 20 meq 11/07/18 09:00 11/07/18 09:22 K-Dur 20 Meq Er Tab PO 20 meq DAILY JEANA Administration - Patient Studies Lab Studies: Microbiology Studies 11/05/18 23:15 Blood Culture - Preliminary Blood NO GROWTH AFTER 48 HOURS 11/05/18 21:00 Blood Culture - Preliminary Blood NO GROWTH AFTER 48 HOURS 11/07/18 14:30 Gram Stain - Final Trachasp 11/06/18 14:00 MRSA Culture (Admit) - Final Naris MRSA NOT DETECTED 11/05/18 21:30 Urine Culture - Preliminary Urine,Catheterized Gram Negative Jey Lab Studies 11/08/18 11/08/18 11/08/18 Range/Units 05:52 05:30 05:30 WBC 2.9 L D (4.8-10.8) K/uL RBC 4.70 (3.80-5.20) Mil/uL Hgb 12.1 (12.0-16.0) g/dL Hct 38.8 (34.0-47.0) % MCV 82.5 (81.0-99.0) fl MCH 25.7 L (27.0-31.0) pg MCHC 31.1 L (33.0-37.0) g/dL RDW 20.2 H (11.5-14.5) % Plt Count 122 L (130-400) K/uL pCO2 (35-45) mm/Hg pO2 (80-100) mm/Hg HCO3 (21-28) mmol/L ABG pH (7.35-7.45) ABG Total CO2 (22-28) mmol/L ABG O2 Saturation (95-98) % ABG O2 Content (15-23) ML/dL ABG Base Excess (-2.0-3.0) mmol/L ABG Hemoglobin (11.7-17.4) g/dL ABG Carboxyhemoglobin (0.5-1.5) % POC ABG HHb (Measured) (0.0-5.0) % ABG Methemoglobin (0.0-3.0) % ABG O2 Capacity (16-24) mL/dL Favian Test A-a O2 Difference mm/Hg Hgb O2 Saturation (95.0-98.0) % Vent Mode Mechanical Rate FiO2 % Tidal Volume PEEP Crit Value Called To Crit Value Called By Crit Value Read Back Blood Gas Notified Time Sodium 141 (132-148) mmol/l Potassium 3.0 L (3.6-5.0) MMOL/L Chloride 95 L (98-107) mmol/L Carbon Dioxide 38 H (22-30) mmol/L Anion Gap 11 (10-20) BUN 32 H (7-17) mg/dl Creatinine 1.0 (0.7-1.2) mg/dl Est GFR ( Amer) > 60 Est GFR (Non-Af Amer) 53 POC Glucose (mg/dL) 155 H (65-110) mg/dL Random Glucose 160 H (65-105) mg/dL Calcium 8.3 L (8.4-10.2) mg/dL Phosphorus 4.0 (2.5-4.5) mg/dl Magnesium 1.7 (1.6-2.3) MG/DL Total Bilirubin 1.1 (0.2-1.3) mg/dl AST 25 (14-36) U/L ALT 34 (9-52) U/L Alkaline Phosphatase 69 (38-126) U/L Total Protein 5.9 L (6.3-8.2) G/DL Albumin 2.9 L (3.5-5.0) g/dL Globulin 3.0 (2.2-3.9) gm/dL Albumin/Globulin Ratio 1.0 (1.0-2.1) 11/08/18 11/07/18 11/07/18 Range/Units 04:58 23:10 17:27 WBC (4.8-10.8) K/uL RBC (3.80-5.20) Mil/uL Hgb (12.0-16.0) g/dL Hct (34.0-47.0) % MCV (81.0-99.0) fl MCH (27.0-31.0) pg MCHC (33.0-37.0) g/dL RDW (11.5-14.5) % Plt Count (130-400) K/uL pCO2 33 L (35-45) mm/Hg pO2 141 H (80-100) mm/Hg HCO3 35.7 H (21-28) mmol/L ABG pH 7.64 H* (7.35-7.45) ABG Total CO2 36.5 H (22-28) mmol/L ABG O2 Saturation 98.7 H (95-98) % ABG O2 Content 17.1 (15-23) ML/dL ABG Base Excess 13.9 H (-2.0-3.0) mmol/L ABG Hemoglobin 12.5 (11.7-17.4) g/dL ABG Carboxyhemoglobin 1.6 H (0.5-1.5) % POC ABG HHb (Measured) 1.3 (0.0-5.0) % ABG Methemoglobin 1.5 (0.0-3.0) % ABG O2 Capacity 17.3 (16-24) mL/dL Favian Test Yes A-a O2 Difference 317.0 mm/Hg Hgb O2 Saturation 95.6 (95.0-98.0) % Vent Mode A/c Mechanical Rate 12 FiO2 70.0 % Tidal Volume 500 PEEP 8 Crit Value Called To Rita bradley rn Crit Value Called By Wendy Crit Value Read Back Y Blood Gas Notified Time 505 Sodium (132-148) mmol/l Potassium (3.6-5.0) MMOL/L Chloride (98-107) mmol/L Carbon Dioxide (22-30) mmol/L Anion Gap (10-20) BUN (7-17) mg/dl Creatinine (0.7-1.2) mg/dl Est GFR ( Amer) Est GFR (Non-Af Amer) POC Glucose (mg/dL) 169 H 128 H (65-110) mg/dL Random Glucose (65-105) mg/dL Calcium (8.4-10.2) mg/dL Phosphorus (2.5-4.5) mg/dl Magnesium (1.6-2.3) MG/DL Total Bilirubin (0.2-1.3) mg/dl AST (14-36) U/L ALT (9-52) U/L Alkaline Phosphatase (38-126) U/L Total Protein (6.3-8.2) G/DL Albumin (3.5-5.0) g/dL Globulin (2.2-3.9) gm/dL Albumin/Globulin Ratio (1.0-2.1) 12/29/18 Range/Units 11:04 WBC (4.8-10.8) K/uL RBC (3.80-5.20) Mil/uL Hgb (12.0-16.0) g/dL Hct (34.0-47.0) % MCV (81.0-99.0) fl MCH (27.0-31.0) pg MCHC (33.0-37.0) g/dL RDW (11.5-14.5) % Plt Count (130-400) K/uL pCO2 (35-45) mm/Hg pO2 (80-100) mm/Hg HCO3 (21-28) mmol/L ABG pH (7.35-7.45) ABG Total CO2 (22-28) mmol/L ABG O2 Saturation (95-98) % ABG O2 Content (15-23) ML/dL ABG Base Excess (-2.0-3.0) mmol/L ABG Hemoglobin (11.7-17.4) g/dL ABG Carboxyhemoglobin (0.5-1.5) % POC ABG HHb (Measured) (0.0-5.0) % ABG Methemoglobin (0.0-3.0) % ABG O2 Capacity (16-24) mL/dL Favian Test A-a O2 Difference mm/Hg Hgb O2 Saturation (95.0-98.0) % Vent Mode Mechanical Rate FiO2 % Tidal Volume PEEP Crit Value Called To Crit Value Called By Crit Value Read Back Blood Gas Notified Time Sodium (132-148) mmol/l Potassium (3.6-5.0) MMOL/L Chloride (98-107) mmol/L Carbon Dioxide (22-30) mmol/L Anion Gap (10-20) BUN (7-17) mg/dl Creatinine (0.7-1.2) mg/dl Est GFR ( Amer) Est GFR (Non-Af Amer) POC Glucose (mg/dL) 148 H (65-110) mg/dL Random Glucose (65-105) mg/dL Calcium (8.4-10.2) mg/dL Phosphorus (2.5-4.5) mg/dl Magnesium (1.6-2.3) MG/DL Total Bilirubin (0.2-1.3) mg/dl AST (14-36) U/L ALT (9-52) U/L Alkaline Phosphatase (38-126) U/L Total Protein (6.3-8.2) G/DL Albumin (3.5-5.0) g/dL Globulin (2.2-3.9) gm/dL Albumin/Globulin Ratio (1.0-2.1) Laboratory Results - last 24 hr 11/07/18 11/07/18 11/07/18 11:04 17:27 23:10 WBC RBC Hgb Hct MCV MCH MCHC RDW Plt Count pCO2 pO2 HCO3 ABG pH ABG Total CO2 ABG O2 Saturation ABG O2 Content ABG Base Excess ABG Hemoglobin ABG Carboxyhemoglobin POC ABG HHb (Measured) ABG Methemoglobin ABG O2 Capacity Favian Test A-a O2 Difference Hgb O2 Saturation Vent Mode Mechanical Rate FiO2 Tidal Volume PEEP Crit Value Called To Crit Value Called By Crit Value Read Back Blood Gas Notified Time Sodium Potassium Chloride Carbon Dioxide Anion Gap BUN Creatinine Est GFR ( Amer) Est GFR (Non-Af Amer) POC Glucose (mg/dL) 148 H 128 H 169 H Random Glucose Calcium Phosphorus Magnesium Total Bilirubin AST ALT Alkaline Phosphatase Total Protein Albumin Globulin Albumin/Globulin Ratio 11/08/18 11/08/18 11/08/18 04:58 05:30 05:30 WBC 2.9 L D RBC 4.70 Hgb 12.1 Hct 38.8 MCV 82.5 MCH 25.7 L MCHC 31.1 L RDW 20.2 H Plt Count 122 L pCO2 33 L pO2 141 H HCO3 35.7 H ABG pH 7.64 H* ABG Total CO2 36.5 H ABG O2 Saturation 98.7 H ABG O2 Content 17.1 ABG Base Excess 13.9 H ABG Hemoglobin 12.5 ABG Carboxyhemoglobin 1.6 H POC ABG HHb (Measured) 1.3 ABG Methemoglobin 1.5 ABG O2 Capacity 17.3 Favian Test Yes A-a O2 Difference 317.0 Hgb O2 Saturation 95.6 Vent Mode A/c Mechanical Rate 12 FiO2 70.0 Tidal Volume 500 PEEP 8 Crit Value Called To Rita bradley rn Crit Value Called By 333 Crit Value Read Back Y Blood Gas Notified Time 505 Sodium 141 Potassium 3.0 L Chloride 95 L Carbon Dioxide 38 H Anion Gap 11 BUN 32 H Creatinine 1.0 Est GFR ( Amer) > 60 Est GFR (Non-Af Amer) 53 POC Glucose (mg/dL) Random Glucose 160 H Calcium 8.3 L Phosphorus 4.0 Magnesium 1.7 Total Bilirubin 1.1 AST 25 ALT 34 Alkaline Phosphatase 69 Total Protein 5.9 L Albumin 2.9 L Globulin 3.0 Albumin/Globulin Ratio 1.0 11/08/18 05:52 WBC RBC Hgb Hct MCV MCH MCHC RDW Plt Count pCO2 pO2 HCO3 ABG pH ABG Total CO2 ABG O2 Saturation ABG O2 Content ABG Base Excess ABG Hemoglobin ABG Carboxyhemoglobin POC ABG HHb (Measured) ABG Methemoglobin ABG O2 Capacity Favian Test A-a O2 Difference Hgb O2 Saturation Vent Mode Mechanical Rate FiO2 Tidal Volume PEEP Crit Value Called To Crit Value Called By Crit Value Read Back Blood Gas Notified Time Sodium Potassium Chloride Carbon Dioxide Anion Gap BUN Creatinine Est GFR ( Amer) Est GFR (Non-Af Amer) POC Glucose (mg/dL) 155 H Random Glucose Calcium Phosphorus Magnesium Total Bilirubin AST ALT Alkaline Phosphatase Total Protein Albumin Globulin Albumin/Globulin Ratio Radiology Impressions: Radiology Impressions Chest CT 11/07/18 08:17 IMPRESSION: ETT and NGT as above. Mild atelectasis both lung almonte with with small bilateral effusions.. Small calcified granuloma left lower lobe Cardiomegaly. Small pericardial effusion. Mild aneurysmal dilatation of the ascending thoracic aorta. Splenomegaly. Chest X-Ray 11/07/18 09:00 IMPRESSION: ETT and NGT as above. Mild bibasilar atelectasis with what appears represent small bilateral effusions. Interval improvement previously noted mild central pulmonary venous congestion Fingerstick Blood Sugar Results: 155 Critical Care Progress Note - Ventilator Checklist DVT Prophylaxis: Yes - Vent Settings MODE:: IMV - Extremities/Vascular Does the Patient have a Central Venous Catheter?: No Assessment/Plan - Assessment and Plan (Free Text) Assessment: A/P: 82 YO female with h/o CHF, DM, HTN, Hypothyroidism was admitted for AMS, and acute respiratory distress req intubation (in ED 11/05/18). Pt still intubated, off sedation Requiring higher Fio2 Neuro: Intubated, sedated -CT head no acute findings -AMS likely 2/2 to hypoxia, hypercarbia (resolved this AM) - Off sedation, will give only if needed Hypercapnea is better, actually now has low C02 Cardiology: Acute CHF, HTN, pacemaker --Was on Lasix 40 mg IV q 12 h, decreased today to once daily due to sever metabolic alkalosis, Diamox added -c/w bp meds -echo ordered -Cardiology consulted: Dr. Kim Respiratory: Intubated -s/p intubation 11/05 Changed from AC to SIMV due to high PH CT chest done yesterday, showed small bilateral effusion spiked fever , sputum culture sent, no growth yet CXR showed bilateral pleural effusion, will do CT to evaluate the pleural effusion as the main cause of resp failure, and if thoracentesis indicated. - Not ready for wean off at this point on azithromycin and and zosyn -Pulmnary consult with Dr Prince -c/w Probiotic and PPI ID: pneumonia vs atelectasis, lactic acidosis -c/w abx -repeat lactate in AM Endocrine: Hypothyroidism, NIDDM -HbA1c 6.5 (01/2017), follow up new hbA1c -c/w low dose insulin correction, hypoglycemia -start IV levo 37.5mcg Hypokalemia : due to diuretics: 60 meq IV ordered. Prophylx -c.w PPI, probiotic -c.w Lovenox and SCDs
[2018-11-08] MEDS: Lactobacillus Acidophilus 500 MU Cap PO SCH ×2 (08:45→16:57)
[2018-11-08] MEDS: Enoxaparin 30 mg Syringe SC SCH (08:50)
[2018-11-08] MEDS: Potassium Chloride 20 mEq ER Tab PO SCH (08:50)
[2018-11-08] MEDS: Pantoprazole 40 mg EC Tab PO SCH (08:51)
[2018-11-08] MEDS: Levothyroxine 100 mcg (0.1 mg) Inj IVP SCH (08:54)
[2018-11-08] MEDS: Azithromycin 500 MG in Sodium Chloride 0.9% 250 ML IVPB SCH (08:55)
[2018-11-08] MEDS: Potassium Chloride 20 mEq 100 ML IV SCH ×3 (09:20→13:06)
--- NOTE | 2018-11-08 09:20 | PN ---
DATE: 11/08/2018 SUBJECTIVE: The patient seen and examined. Interim events noted. Consults noted and appreciated. The patient remains in intensive care unit, on ventilator, not able to provide informative history or review of system, also sedated because the patient was trying to extubate herself. PHYSICAL EXAMINATION: GENERAL: The patient is orally intubated, on mechanical ventilation via endotracheal tube, tolerating current vent setting without any acute respiratory distress. Not able to provide informative history or review of systems. No specific issue reported by nursing staff other than the patient was trying to self-extubate and needed sedation. VITAL SIGNS: Stable. HEART: S1 and S2. Normal and regular. LUNGS: Clear bilateral air exchange. ABDOMEN: Soft and nontender. EXTREMITY EXAM: No edema. No calf swelling. No tenderness. No acute ischemia. CENTRAL NERVOUS SYSTEM: Essentially unchanged, also thorough PREASSEMBLER AND INSPECTOR exam is not possible as the patient is moderately sedated. DIAGNOSTIC DATA: Available diagnostic data reviewed. Telemetry monitoring shows episodes of tachycardia, but no other significant arrhythmia. ASSESSMENT AND PLAN: Overall, the patient did not tolerate continuous positive airway pressure, tried more than 2 hours yesterday and day before. Plan is to continue same management and try as the patient's condition allow us. Pulmonary followup and intervention noted and appreciated. Plan as ordered. Nakul Zhang MD
--- NOTE | 2018-11-08 10:20 | CP.PCM.PN ---
Subjective - Date & Time of Evaluation Date of Evaluation: 11/08/18 Time of Evaluation: 10:21 - Subjective Subjective: STILL INTUBATED AND BEING VENTILATED MORE ALERT TODAY FEBRILE EPISODE Objective - Vital Signs/Intake and Output Vital Signs (last 24 hours): Temp Pulse Resp BP Pulse Ox 100.5 F H 102 H 15 102/69 100 11/08/18 08:57 11/08/18 10:00 11/08/18 10:00 11/08/18 10:00 11/08/18 10:00 Intake and Output: 11/08/18 11/08/18 06:59 18:59 Intake Total 850 90 Output Total 900 Balance -50 90 - Medications Medications: Current Medications Acetaminophen (Tylenol 325mg Tab) 650 mg PO Q6 PRN PRN Reason: Fever >100.4 F Last Admin: 11/08/18 08:57 Dose: 650 mg Acetazolamide (Diamox 250 Mg Tab) 250 mg PO BID JEANA Last Admin: 11/08/18 08:59 Dose: 250 mg Carvedilol (Coreg) 3.125 mg PO Q12 JEANA Last Admin: 11/08/18 08:46 Dose: 3.125 mg Dextrose (Dextrose 50% Inj) 0 ml IV STAT PRN; Protocol PRN Reason: Hypoglycemia Protocol Dextrose (Glutose 15) 0 gm PO ONCE PRN; Protocol PRN Reason: Hypoglycemia Protocol Enoxaparin Sodium (Lovenox) 30 mg SC DAILY JEANA; Protocol Last Admin: 11/08/18 08:50 Dose: 30 mg Glucagon (Glucagen Diagnostic Kit) 0 mg IM STAT PRN; Protocol PRN Reason: Hypoglycemia Protocol Azithromycin 500 mg/ Sodium (Chloride) 250 mls @ 250 mls/hr IVPB DAILY JEANA; Protocol Last Admin: 11/08/18 08:55 Dose: 250 mls/hr Piperacillin Sod/Tazobactam (Sod 2.25 gm/ Sodium Chloride) 100 mls @ 100 mls/hr IVPB Q6 JEANA; Protocol Last Admin: 11/08/18 09:13 Dose: 100 mls/hr Potassium Chloride (Potassium Chloride 20 Meq/100 Ml) 100 mls @ 50 mls/hr IV Q2 JENAA Stop: 11/08/18 15:59 Last Admin: 11/08/18 09:20 Dose: 50 mls/hr Propofol (Diprivan) 1,000 mg in 100 mls @ 8.916 mls/hr IV .[id number] JEANA; Protocol Stop: 11/09/18 09:05 Last Admin: 11/08/18 08:05 Dose: 15 mcg/kg/min, 8.916 mls/hr Insulin Human Lispro (Humalog) 0 units SC Q6H JEANA; Protocol Last Admin: 11/08/18 06:30 Dose: 1 units Lactobacillus Acidophilus (Bacid Acidophilus) 1 cap PO BID JEANA Last Admin: 11/08/18 08:45 Dose: 1 cap Levothyroxine Sodium (Synthroid) 37.5 mcg IVP DAILY JEANA Last Admin: 11/08/18 08:54 Dose: 37.5 mcg Pantoprazole Sodium (Protonix Ec Tab) 40 mg PO DAILY JEANA Last Admin: 11/08/18 08:51 Dose: 40 mg Potassium Chloride (K-Dur 20 Meq Er Tab) 20 meq PO DAILY JEANA Last Admin: 11/08/18 08:50 Dose: Not Given - Labs Labs: 11/08/18 05:30 11/08/18 05:30 PT 11.8 Seconds (9.8-13.1) 11/05/18 21:00 INR 1.0 11/05/18 21:00 APTT 37.4 Seconds (25.6-37.1) H 11/05/18 21:00 - Constitutional Appears: Chronically Ill - Head Exam Head Exam: ATRAUMATIC, NORMAL INSPECTION, NORMOCEPHALIC - Eye Exam Eye Exam: EOMI, Normal appearance, PERRL Pupil Exam: NORMAL ACCOMODATION, PERRL - ENT Exam ENT Exam: Mucous Membranes Moist, Normal Exam - Neck Exam Neck Exam: Full ROM, Normal Inspection. absent: Lymphadenopathy - Respiratory Exam Respiratory Exam: Decreased Breath Sounds, Rales Additional comments: ON YHE VENT - Cardiovascular Exam Cardiovascular Exam: REGULAR RHYTHM, +S1, +S2. absent: Murmur - GI/Abdominal Exam GI & Abdominal Exam: Soft, Normal Bowel Sounds. absent: Tenderness - Rectal Exam Rectal Exam: NORMAL INSPECTION - Extremities Exam Extremities Exam: Full ROM, Normal Capillary Refill, Normal Inspection. absent: Joint Swelling, Pedal Edema - Back Exam Back Exam: NORMAL INSPECTION - Neurological Exam Neurological Exam: Alert, Awake, CN II-XII Intact - Skin Skin Exam: Dry, Intact, Normal Color, Warm Assessment and Plan - Assessment and Plan (Free Text) Assessment: ACUTE RESPIRATORY FAILURE PNEUMONIA HYPOTHYROIDISM Plan: CONTINUE CURRENT RX
--- NOTE | 2018-11-08 13:41 | RAD ---
Date of service: 11/08/2018 HISTORY: Intuabted COMPARISON: No prior. FINDINGS: In situ ETT, tip of which lies approximately 3.6 cm above mamadou. NGT is present, the tip of which lies left parasagittal upper abdomen. LUNGS: Bilateral lower lobe atelectatic and or infiltrate changes with bilateral effusions. Suspect underlying mild chronic compensated central pulmonary venous congestion PLEURA: No significant pleural effusion identified, no pneumothorax apparent. CARDIOVASCULAR: Moderate aortic atherosclerotic calcification present. Cardiomegaly. No change multi lead pacemaker/defibrillator.. . OSSEOUS STRUCTURES: No significant abnormalities. VISUALIZED UPPER ABDOMEN: Normal. OTHER FINDINGS: None. IMPRESSION: Bilateral lower lobe atelectatic and or infiltrate changes with bilateral effusions. Suspect underlying mild chronic compensated central pulmonary venous congestion .
[2018-11-08] MEDS: Acetaminophen 325 MG/10.15 ML NG PRN (21:49)
[2018-11-09] MEDS: Insulin Lispro (humaLOG) 100 Units/ml Inj SC SCH ×5 (00:20→23:22)
[2018-11-09 04:54] LABS: HEMOGLOBIN 11.7 g/dL (12.0-16.0); MEAN CELL VOLUME 81.2 fl (81.0-99.0); MEAN CORPUSCULAR HEMOGLOBIN 25.8 pg (27.0-31.0); MEAN CORPUSCULAR HGB CONC 31.8 g/dL (33.0-37.0); RBC 4.53 Mil/uL (3.80-5.20); RED CELL DISTRIBUTION WIDTH 19.7 % (11.5-14.5)
[2018-11-09 05:04] LABS: ABG ALLEN TEST YES; ARTERIAL BLOOD GAS HCO3 32.9 mmol/L (21-28); ARTERIAL BLOOD GAS HEMOGLOBIN 11.7 g/dL (11.7-17.4); ARTERIAL BLOOD GAS O2 CAPACITY 16.1 mL/dL (16-24); ARTERIAL BLOOD GAS O2 CONTENT 15.8 ML/dL (15-23); ARTERIAL BLOOD GAS O2 SAT 98.4 % (95-98); ARTERIAL BLOOD GAS PCO2 50 mm/Hg (35-45); ARTERIAL BLOOD GAS PH 7.46 (7.35-7.45); ARTERIAL BLOOD GAS PO2 100 mm/Hg (80-100); ARTERIAL BLOOD GAS TCO2 37.1 mmol/L (22-28)
[2018-11-09 05:04] LABS: ALB/GLOB RATIO 0.9 (1.0-2.1); ALBUMIN 2.9 g/dL (3.5-5.0); ALT/SGPT 39 U/L (9-52); AST/SGOT 33 U/L (14-36); BLOOD UREA NITROGEN 27 mg/dl (7-17); CALCIUM 7.8 mg/dL (8.4-10.2); GFR NON-AFRICAN AMERICAN > 60
[2018-11-09] MEDS ORDERED: Albuterol-Ipratrop 3 mg / 0.5 (3 ml) UD INH PRN (08:29)
[2018-11-09] MEDS: Lactobacillus Acidophilus 500 MU Cap PO SCH ×2 (08:29→16:11)
[2018-11-09] MEDS: Acetaminophen 325 MG/10.15 ML NG PRN (08:30)
[2018-11-09] MEDS: Enoxaparin 30 mg Syringe SC SCH (08:31)
[2018-11-09] MEDS: Levothyroxine 100 mcg (0.1 mg) Inj IVP SCH (08:32)
[2018-11-09] MEDS: Pantoprazole 40 mg EC Tab PO SCH (08:32)
[2018-11-09] MEDS: Potassium Chloride 20 mEq ER Tab PO SCH (08:33)
[2018-11-09] MEDS: Azithromycin 500 MG in Sodium Chloride 0.9% 250 ML IVPB SCH (08:34)
[2018-11-09] MEDS ORDERED: Cefepime 1 GM in Sodium Chloride 0.9% 100 ML IVPB SCH (09:00)
--- NOTE | 2018-11-09 11:02 | RAD ---
Date of service: 11/09/2018 HISTORY: Intuabted COMPARISON: Comparison chest 11/08/2018 FINDINGS: In situ ETT, tip of which lies approximately 3.7 cm above mamadou. NGT again seen with tip left parasagittal upper/mid abdomen. LUNGS: Bibasilar atelectasis and/or infiltrates with bilateral effusions. Slightly improved pulmonary venous congestive changes. Small bilateral effusions.. PLEURA: As above no pneumothorax apparent. CARDIOVASCULAR: Mild aortic atherosclerotic calcification present. Cardiomegaly. No pulmonary vascular congestion. OSSEOUS STRUCTURES: No significant abnormalities. VISUALIZED UPPER ABDOMEN: Normal. OTHER FINDINGS: None. IMPRESSION: ETT and NGT as above. Bibasilar atelectasis and/or infiltrates with bilateral effusions. Slightly improved pulmonary venous congestive changes. Small bilateral effusions.. .
--- NOTE | 2018-11-09 12:45 | PCM.PROC ---
Procedures Attestation:: I certify that I have explained the specified Operation(s) or Procedure(s), risks, benefits and reasonable alternatives to the Patient and/or other person responsible. The opportunity was given to ask questions and all questions answered - Central Line Placement Right Internal Jugular Triple Lumen Catheter Aseptic technique was employed throughout the procedure: Hand Hygiene done prior to procedure, Full sterile barriers (mask, hair cover, sterile gown, sterile gloves), Full body sterile drape, Chloraprep Antiseptic: 30 second prep for IJ or SC sites CVP Time Out Performed: Yes Pt. Placed on Pulse Ox Monitor: Yes Central Line Prep: Chlorhexidine-Alcohol Combination Local Anesthesia Used: Lidocaine 1% Amount of Anesthesia Used (mls): 5 Ultrasound Used for Placement: Yes Central Line Lumen Inserted: triple Central Line Length: 20 cm Post Procedure: Sutured in Place, Good Blood Return, All Ports Aspirated, Flushed, Capped, Sterile Dressing Applied Secured by: Suture Post procedure dressing: Clear vapor permeable, Chlorhexidine disc (Biopatch) Post Procedure X-Ray: Yes Patient Tolerated Procedure: Well, No Complications Immediate Complications: None
--- NOTE | 2018-11-09 13:12 | CP.PCM.PN ---
Subjective - Date & Time of Evaluation Date of Evaluation: 11/09/18 Time of Evaluation: 13:12 - Subjective Subjective: STILL [id number] AND BEING VENTILATED CXR-PNEUMONIA Objective - Vital Signs/Intake and Output Vital Signs (last 24 hours): Temp Pulse Resp BP Pulse Ox 100.0 F H 99 H 20 114/63 100 11/09/18 12:55 11/09/18 12:55 11/09/18 12:55 11/09/18 12:55 11/09/18 12:55 Intake and Output: 11/09/18 11/09/18 06:59 18:59 Intake Total 910 790 Output Total 400 Balance 510 790 - Medications Medications: Current Medications Acetaminophen (Tylenol 325mg/10.15ml Ud) 650 mg NG Q6 PRN PRN Reason: fever: temp of > 100.4 F Last Admin: 11/09/18 08:30 Dose: 650 mg Acetazolamide (Diamox 250 Mg Tab) 250 mg PO BID JEANA Last Admin: 11/09/18 08:33 Dose: 250 mg Albuterol/Ipratropium (Duoneb 3 Mg/0.5 Mg (3 Ml) Ud) 3 ml INH RQ4 PRN PRN Reason: Shortness of Breath Carvedilol (Coreg) 3.125 mg PO Q12 JEANA Last Admin: 11/09/18 08:32 Dose: 3.125 mg Dextrose (Dextrose 50% Inj) 0 ml IV STAT PRN; Protocol PRN Reason: Hypoglycemia Protocol Dextrose (Glutose 15) 0 gm PO ONCE PRN; Protocol PRN Reason: Hypoglycemia Protocol Glucagon (Glucagen Diagnostic Kit) 0 mg IM STAT PRN; Protocol PRN Reason: Hypoglycemia Protocol Azithromycin 500 mg/ Sodium (Chloride) 250 mls @ 250 mls/hr IVPB DAILY JEANA; Protocol Last Admin: 11/09/18 08:34 Dose: 250 mls/hr Cefepime HCl 1 gm/ Sodium (Chloride) 100 mls @ 100 mls/hr IVPB Q8 JEANA; Protocol Last Admin: 11/09/18 09:22 Dose: 100 mls/hr Insulin Human Lispro (Humalog) 0 units SC Q6H JEANA; Protocol Last Admin: 11/09/18 12:47 Dose: 1 units Lactobacillus Acidophilus (Bacid Acidophilus) 1 cap PO BID JEANA Last Admin: 11/09/18 08:29 Dose: 1 cap Levothyroxine Sodium (Synthroid) 37.5 mcg IVP DAILY JEANA Last Admin: 11/09/18 08:32 Dose: 37.5 mcg Pantoprazole Sodium (Protonix Ec Tab) 40 mg PO DAILY JEANA Last Admin: 11/09/18 08:32 Dose: 40 mg Potassium Chloride (K-Dur 20 Meq Er Tab) 20 meq PO DAILY JEANA Last Admin: 11/09/18 08:33 Dose: 20 meq - Labs Labs: 11/09/18 04:41 11/09/18 04:41 PT 11.8 Seconds (9.8-13.1) 11/05/18 21:00 INR 1.0 11/05/18 21:00 APTT 37.4 Seconds (25.6-37.1) H 11/05/18 21:00 - Constitutional Appears: Chronically Ill - Head Exam Head Exam: ATRAUMATIC, NORMAL INSPECTION, NORMOCEPHALIC - Eye Exam Eye Exam: EOMI, Normal appearance, PERRL Pupil Exam: NORMAL ACCOMODATION, PERRL - ENT Exam ENT Exam: Mucous Membranes Moist, Normal Exam - Neck Exam Neck Exam: Full ROM, Normal Inspection. absent: Lymphadenopathy - Respiratory Exam Respiratory Exam: Decreased Breath Sounds, Prolonged Expiratory Phase, Rales Additional comments: STILL ON THE VENT - Cardiovascular Exam Cardiovascular Exam: REGULAR RHYTHM, +S1, +S2. absent: Murmur - GI/Abdominal Exam GI & Abdominal Exam: Soft, Normal Bowel Sounds. absent: Tenderness - Rectal Exam Rectal Exam: NORMAL INSPECTION - Extremities Exam Extremities Exam: absent: Joint Swelling, Pedal Edema - Back Exam Back Exam: NORMAL INSPECTION - Skin Skin Exam: Dry, Intact, Normal Color, Warm Assessment and Plan - Assessment and Plan (Free Text) Assessment: ACUTE RESP FAILURE PNEUMONIA Plan: ANTIBIOTIC RX ORDERED BY COORDINATOR HOTELS WILL NEED INFECTIOUS DZ EVAL
--- NOTE | 2018-11-09 13:21 | PN ---
DATE: 11/09/2018 SUBJECTIVE: The patient seen and examined. Interim events noted. Consults noted and appreciated. The patient remains in intensive care unit, on ventilator. Not able to provide informative history or review of system as the patient also is sedated. PHYSICAL EXAMINATION: GENERAL: The patient is elderly, intubated in the current setting without any acute respiratory distress. VITAL SIGNS: Stable. Blood pressure is on the lower side, 93/70. HEART: S1 and S2, normal, regular. LUNGS: Good bilateral air exchange. The patient has transmitted sound and occasional crepitation. ABDOMEN: Soft, nontender. No organomegaly noted. Bowel sounds are present and normal. EXTREMITIES: The patient has some anasarca, but no costovertebral angle tenderness. No acute ischemia. CENTRAL NERVOUS SYSTEM: Essentially unchanged. DIAGNOSTIC DATA: Available diagnostic data reviewed. WBC count is low of 2. Telemetry monitoring does not reveal significant arrhythmias. ASSESSMENT AND PLAN: Overall, the patient's general condition is critical. We are planning intensive care unit management, also is slightly hypertensive . Plan as ordered. Case and plan discussed with the patient. Nakul Zhang MD
--- NOTE | 2018-11-09 14:44 | RAD ---
Date of service: 11/09/2018 HISTORY: TLC placement COMPARISON: November 09, 2018 examination performed 04:15. FINDINGS: LUNGS: Stable findings PLEURA: No significant pleural effusion identified, no pneumothorax apparent. CARDIOVASCULAR: Atherosclerotic calcifications identified primarily aortic arch. Venous access catheter in satisfactory position. Position/ configuration of pacemaker OSSEOUS STRUCTURES: No significant abnormalities. VISUALIZED UPPER ABDOMEN: Normal. OTHER FINDINGS: Stable and satisfactory position of endotracheal tube and nasogastric tube. IMPRESSION: S/p TLC insertion via right internal jugular approach. Catheter tip in satisfactory position. No visible pneumothorax. Otherwise no interval change.
--- NOTE | 2018-11-09 14:57 | CP.CCUPN ---
CCU Subjective - Physician Review Events Since Last Encounter (Free Text): 11/09/18 14:52 alert on vent, follows commands. CCU Objective - Vital Signs / Intake & Output Vital Signs (Last 4 hours): Vital Signs Temp Pulse Resp BP Pulse Ox 11/09/18 12:55 100.0 F H 99 H 20 114/63 100 11/09/18 12:00 100.3 F H 92 H 12 105/51 L 93 L Intake and Output (Last 8hrs): Intake & Output 11/08/18 11/09/18 11/09/18 22:59 06:59 14:59 Intake Total 870 536 830 Output Total 400 400 Balance 470 136 830 Weight 220 lb Intake: IV 150 16 0 Intake, Piggyback 200 100 350 Tube Feeding 320 320 280 Free Water Flush 200 100 200 Output: Urine 400 400 Urethral (Amaral) 400 400 Other: # Bowel Movements 0 0 - Physical Exam Head: Positive for: Atraumatic Pupils: Positive for: PERRL Mouth: Positive for: Moist Mucous Membranes Respiratory/Chest: Positive for: Decreased Breath Sounds (in the lower lobes b/l ), Other (course breath sounds, crackles in the R>L ) Abdomen: Positive for: Other (obese ). Negative for: Tenderness, Guarding Genitourinary/Pelvic Exam: Positive for: Other (Amaral draining yellow urine ) Upper Extremity: Positive for: Edema, Other (moving b/l upper ext when stimulated. Mild edema of the hands b/l ) Lower Extremity: Positive for: Other (mild edema, scds on, moving both ext ) - Medications Active Medications: Active Medications Generic Name Dose Route Start Last Admin Trade Name Freq PRN Reason Stop Dose Admin Acetaminophen 650 mg 11/09/18 14:15 Tylenol 650mg/20.3ml Solution Ud NG Q6 PRN fever: temp of > 100.4 F Acetazolamide 250 mg 11/08/18 09:00 11/09/18 08:33 Diamox 250 Mg Tab PO 250 mg BID JEANA Administration Albuterol/Ipratropium 3 ml 11/09/18 08:29 Duoneb 3 Mg/0.5 Mg (3 Ml) Ud INH RQ4 PRN Shortness of Breath Carvedilol 3.125 mg 11/06/18 09:00 11/09/18 08:32 Coreg PO 3.125 mg Q12 JEANA Administration Dextrose 0 ml 11/06/18 08:46 Dextrose 50% Inj IV STAT PRN Hypoglycemia Protocol Protocol Dextrose 0 gm 11/06/18 08:46 Glutose 15 PO ONCE PRN Hypoglycemia Protocol Protocol Glucagon 0 mg 11/06/18 08:46 Glucagen Diagnostic Kit IM STAT PRN Hypoglycemia Protocol Protocol Meropenem 1 gm/ Sodium 100 mls @ 100 mls/hr 11/09/18 17:00 Chloride IVPB Q8 JEANA Protocol Insulin Human Lispro 0 units 11/06/18 00:15 11/09/18 12:47 Humalog SC 1 units Q6H JEANA Administration Protocol Lactobacillus Acidophilus 1 cap 11/06/18 17:00 11/09/18 08:29 Bacid Acidophilus PO 1 cap BID JEANA Administration Levothyroxine Sodium 37.5 mcg 11/07/18 09:00 11/09/18 08:32 Synthroid IVP 37.5 mcg DAILY JEANA Administration Pantoprazole Sodium 40 mg 11/06/18 09:00 11/09/18 08:32 Protonix Ec Tab PO 40 mg DAILY JEANA Administration Potassium Chloride 20 meq 11/07/18 09:00 11/09/18 08:33 K-Dur 20 Meq Er Tab PO 20 meq DAILY JEANA Administration - Patient Studies Lab Studies: Microbiology Studies 11/07/18 14:30 Gram Stain - Final Trachasp Sputum Culture - Final NORMAL ORAL JOAQUIN 11/05/18 23:15 Blood Culture - Preliminary Blood NO GROWTH AFTER 3 DAYS 11/05/18 21:00 Blood Culture - Preliminary Blood NO GROWTH AFTER 3 DAYS Lab Studies 11/09/18 11/09/18 11/09/18 Range/Units 11:26 08:50 05:13 WBC (4.8-10.8) K/uL RBC (3.80-5.20) Mil/uL Hgb (12.0-16.0) g/dL Hct (34.0-47.0) % MCV (81.0-99.0) fl MCH (27.0-31.0) pg MCHC (33.0-37.0) g/dL RDW (11.5-14.5) % Plt Count (130-400) K/uL pCO2 (35-45) mm/Hg pO2 (80-100) mm/Hg HCO3 (21-28) mmol/L ABG pH (7.35-7.45) ABG Total CO2 (22-28) mmol/L ABG O2 Saturation (95-98) % ABG O2 Content (15-23) ML/dL ABG Base Excess (-2.0-3.0) mmol/L ABG Hemoglobin (11.7-17.4) g/dL ABG Carboxyhemoglobin (0.5-1.5) % POC ABG HHb (Measured) (0.0-5.0) % ABG Methemoglobin (0.0-3.0) % ABG O2 Capacity (16-24) mL/dL Favian Test A-a O2 Difference mm/Hg Hgb O2 Saturation (95.0-98.0) % Vent Mode Mechanical Rate FiO2 % Tidal Volume PEEP Pressure Support Sodium (132-148) mmol/l Potassium (3.6-5.0) MMOL/L Chloride (98-107) mmol/L Carbon Dioxide (22-30) mmol/L Anion Gap (10-20) BUN (7-17) mg/dl Creatinine (0.7-1.2) mg/dl Est GFR ( Amer) Est GFR (Non-Af Amer) POC Glucose (mg/dL) 180 H 179 H (65-110) mg/dL Random Glucose (65-105) mg/dL Calcium (8.4-10.2) mg/dL Phosphorus (2.5-4.5) mg/dl Magnesium (1.6-2.3) MG/DL Total Bilirubin (0.2-1.3) mg/dl AST (14-36) U/L ALT (9-52) U/L Alkaline Phosphatase (38-126) U/L Total Protein (6.3-8.2) G/DL Albumin (3.5-5.0) g/dL Globulin (2.2-3.9) gm/dL Albumin/Globulin Ratio (1.0-2.1) Influenza Typ A,B (EIA) Negative for flu a/b (NEGATIVE) 11/09/18 11/09/18 11/09/18 Range/Units 04:50 04:41 04:41 WBC 2.0 L* (4.8-10.8) K/uL RBC 4.53 (3.80-5.20) Mil/uL Hgb 11.7 L (12.0-16.0) g/dL Hct 36.7 (34.0-47.0) % MCV 81.2 (81.0-99.0) fl MCH 25.8 L (27.0-31.0) pg MCHC 31.8 L (33.0-37.0) g/dL RDW 19.7 H (11.5-14.5) % Plt Count 119 L (130-400) K/uL pCO2 50 H (35-45) mm/Hg pO2 100 (80-100) mm/Hg HCO3 32.9 H (21-28) mmol/L ABG pH 7.46 H (7.35-7.45) ABG Total CO2 37.1 H (22-28) mmol/L ABG O2 Saturation 98.4 H (95-98) % ABG O2 Content 15.8 (15-23) ML/dL ABG Base Excess 10.3 H (-2.0-3.0) mmol/L ABG Hemoglobin 11.7 (11.7-17.4) g/dL ABG Carboxyhemoglobin 1.9 H (0.5-1.5) % POC ABG HHb (Measured) 1.5 (0.0-5.0) % ABG Methemoglobin 1.4 (0.0-3.0) % ABG O2 Capacity 16.1 (16-24) mL/dL Favian Test Yes A-a O2 Difference 194.0 mm/Hg Hgb O2 Saturation 95.2 (95.0-98.0) % Vent Mode Simv Mechanical Rate 12 FiO2 50.0 % Tidal Volume 500 PEEP 8 Pressure Support 10 Sodium 139 (132-148) mmol/l Potassium 3.9 (3.6-5.0) MMOL/L Chloride 101 (98-107) mmol/L Carbon Dioxide 32 H (22-30) mmol/L Anion Gap 10 (10-20) BUN 27 H (7-17) mg/dl Creatinine 0.7 (0.7-1.2) mg/dl Est GFR ( Amer) > 60 Est GFR (Non-Af Amer) > 60 POC Glucose (mg/dL) (65-110) mg/dL Random Glucose 165 H (65-105) mg/dL Calcium 7.8 L (8.4-10.2) mg/dL Phosphorus 3.8 (2.5-4.5) mg/dl Magnesium 1.9 (1.6-2.3) MG/DL Total Bilirubin 1.2 (0.2-1.3) mg/dl AST 33 (14-36) U/L ALT 39 (9-52) U/L Alkaline Phosphatase 76 (38-126) U/L Total Protein 6.1 L (6.3-8.2) G/DL Albumin 2.9 L (3.5-5.0) g/dL Globulin 3.2 (2.2-3.9) gm/dL Albumin/Globulin Ratio 0.9 L (1.0-2.1) Influenza Typ A,B (EIA) (NEGATIVE) 11/08/18 11/08/18 Range/Units 22:29 18:01 WBC (4.8-10.8) K/uL RBC (3.80-5.20) Mil/uL Hgb (12.0-16.0) g/dL Hct (34.0-47.0) % MCV (81.0-99.0) fl MCH (27.0-31.0) pg MCHC (33.0-37.0) g/dL RDW (11.5-14.5) % Plt Count (130-400) K/uL pCO2 (35-45) mm/Hg pO2 (80-100) mm/Hg HCO3 (21-28) mmol/L ABG pH (7.35-7.45) ABG Total CO2 (22-28) mmol/L ABG O2 Saturation (95-98) % ABG O2 Content (15-23) ML/dL ABG Base Excess (-2.0-3.0) mmol/L ABG Hemoglobin (11.7-17.4) g/dL ABG Carboxyhemoglobin (0.5-1.5) % POC ABG HHb (Measured) (0.0-5.0) % ABG Methemoglobin (0.0-3.0) % ABG O2 Capacity (16-24) mL/dL Favian Test A-a O2 Difference mm/Hg Hgb O2 Saturation (95.0-98.0) % Vent Mode Mechanical Rate FiO2 % Tidal Volume PEEP Pressure Support Sodium (132-148) mmol/l Potassium (3.6-5.0) MMOL/L Chloride (98-107) mmol/L Carbon Dioxide (22-30) mmol/L Anion Gap (10-20) BUN (7-17) mg/dl Creatinine (0.7-1.2) mg/dl Est GFR ( Amer) Est GFR (Non-Af Amer) POC Glucose (mg/dL) 166 H 174 H (65-110) mg/dL Random Glucose (65-105) mg/dL Calcium (8.4-10.2) mg/dL Phosphorus (2.5-4.5) mg/dl Magnesium (1.6-2.3) MG/DL Total Bilirubin (0.2-1.3) mg/dl AST (14-36) U/L ALT (9-52) U/L Alkaline Phosphatase (38-126) U/L Total Protein (6.3-8.2) G/DL Albumin (3.5-5.0) g/dL Globulin (2.2-3.9) gm/dL Albumin/Globulin Ratio (1.0-2.1) Influenza Typ A,B (EIA) (NEGATIVE) Laboratory Results - last 24 hr 11/08/18 11/08/18 11/09/18 18:01 22:29 04:41 WBC 2.0 L* RBC 4.53 Hgb 11.7 L Hct 36.7 MCV 81.2 MCH 25.8 L MCHC 31.8 L RDW 19.7 H Plt Count 119 L pCO2 pO2 HCO3 ABG pH ABG Total CO2 ABG O2 Saturation ABG O2 Content ABG Base Excess ABG Hemoglobin ABG Carboxyhemoglobin POC ABG HHb (Measured) ABG Methemoglobin ABG O2 Capacity Favian Test A-a O2 Difference Hgb O2 Saturation Vent Mode Mechanical Rate FiO2 Tidal Volume PEEP Pressure Support Sodium Potassium Chloride Carbon Dioxide Anion Gap BUN Creatinine Est GFR ( Amer) Est GFR (Non-Af Amer) POC Glucose (mg/dL) 174 H 166 H Random Glucose Calcium Phosphorus Magnesium Total Bilirubin AST ALT Alkaline Phosphatase Total Protein Albumin Globulin Albumin/Globulin Ratio Influenza Typ A,B (EIA) 11/09/18 11/09/18 11/09/18 04:41 04:50 05:13 WBC RBC Hgb Hct MCV MCH MCHC RDW Plt Count pCO2 50 H pO2 100 HCO3 32.9 H ABG pH 7.46 H ABG Total CO2 37.1 H ABG O2 Saturation 98.4 H ABG O2 Content 15.8 ABG Base Excess 10.3 H ABG Hemoglobin 11.7 ABG Carboxyhemoglobin 1.9 H POC ABG HHb (Measured) 1.5 ABG Methemoglobin 1.4 ABG O2 Capacity 16.1 Favian Test Yes A-a O2 Difference 194.0 Hgb O2 Saturation 95.2 Vent Mode Simv Mechanical Rate 12 FiO2 50.0 Tidal Volume 500 PEEP 8 Pressure Support 10 Sodium 139 Potassium 3.9 Chloride 101 Carbon Dioxide 32 H Anion Gap 10 BUN 27 H Creatinine 0.7 Est GFR ( Amer) > 60 Est GFR (Non-Af Amer) > 60 POC Glucose (mg/dL) 179 H Random Glucose 165 H Calcium 7.8 L Phosphorus 3.8 Magnesium 1.9 Total Bilirubin 1.2 AST 33 ALT 39 Alkaline Phosphatase 76 Total Protein 6.1 L Albumin 2.9 L Globulin 3.2 Albumin/Globulin Ratio 0.9 L Influenza Typ A,B (EIA) 11/09/18 11/09/18 08:50 11:26 WBC RBC Hgb Hct MCV MCH MCHC RDW Plt Count pCO2 pO2 HCO3 ABG pH ABG Total CO2 ABG O2 Saturation ABG O2 Content ABG Base Excess ABG Hemoglobin ABG Carboxyhemoglobin POC ABG HHb (Measured) ABG Methemoglobin ABG O2 Capacity Favian Test A-a O2 Difference Hgb O2 Saturation Vent Mode Mechanical Rate FiO2 Tidal Volume PEEP Pressure Support Sodium Potassium Chloride Carbon Dioxide Anion Gap BUN Creatinine Est GFR ( Amer) Est GFR (Non-Af Amer) POC Glucose (mg/dL) 180 H Random Glucose Calcium Phosphorus Magnesium Total Bilirubin AST ALT Alkaline Phosphatase Total Protein Albumin Globulin Albumin/Globulin Ratio Influenza Typ A,B (EIA) Negative for flu a/b Radiology Impressions: Radiology Impressions Chest X-Ray 11/09/18 09:00 IMPRESSION: ETT and NGT as above. Bibasilar atelectasis and/or infiltrates with bilateral effusions. Slightly improved pulmonary venous congestive changes. Small bilateral effusions.. . Chest X-Ray 11/09/18 12:51 IMPRESSION: S/p TLC insertion via right internal jugular approach. Catheter tip in satisfactory position. No visible pneumothorax. Otherwise no interval change. Fingerstick Blood Sugar Results: 180 Review of Systems - Review of Systems Systems not reviewed;Unavailable: Intubated Critical Care Progress Note - Ventilator Checklist Head of Bed 30 Degrees: Yes Daily Sedation Vacation: Yes Daily Assessment of Readiness to Wean: Yes Daily Spontaneous Breathing Trial: Yes PUD Prophalyxis: Yes DVT Prophylaxis: Yes Oral Care with Chlorhexidine Gluconate {CHG}: Yes Assessment/Plan (1) Pneumonia Assessment and plan: 82 YO Female with PMHx of HTN, CHF, DM, Hypothyroidism was admitted for AMS, and acute respiratory distress req intubation (in ED 11/05/18). Neuro: propofol sedation stopped. Pulm: acute hypercapnic respiratory failure, intubated (11/06). Patient not tolerating PS trials so far, will try again today. developed VAP while on Zosyn and Zithro, broadened coverage. f/u flu. No evidence of COPD on CT, nor from history. Continue Duonebs q4h. CV: hemodynamically stable. Echo (11/06) shows normal EF, mild diastolic dysfunction. With elevated BNP and mild fluid overload on presentation, will treat as diastolic heart failure. Will diurese. Hem: worsening leukopenia Renal: no acute issues, urine output wnl. Starting diuretic, Lasix IV daily. Endo: hypothyroidism continue levothyroxine. GI: NPO, [email or web address] ID: severe sepsis, progressing toward neutropenia, broadened coverage to Meropenem and Vancomycin. ID - Dr. Chiu DVT proph - lovenox GI proph - protonix amaral for strict I/O's during acute illness Code status - DNR (spoke with daughter, patient has documentation on chart from recent admission to [facility]) RIJ TLC (11/09) Critical Care Time spent 90 minutes Multi-disciplinary rounds were performed with house staff, nursing, speech therapy, respiratory therapy, pharmacy and nutrition with integrated input from the primary team/attending and other consulting services. The documented time is cumulative and includes review of patient data/exams/labs/chart review and examination of the patient on rounds and throughout the day; time is exclusive of any procedures or teaching time. Current Visit: Yes Status: Acute
[2018-11-09] MEDS: Acetaminophen 650mg/20.3ml solution UD NG PRN (15:30)
[2018-11-09] MEDS: Meropenem 1 GM in Sodium Chloride 0.9% 100 ML IVPB SCH (16:01)
[2018-11-09] MEDS: Enoxaparin 40 mg Syringe SC SCH (16:02)
--- NOTE | 2018-11-09 16:42 | CP.PCM.CON ---
History of Present Illness - History of Present Illness History of Present Illness: 82 years old female with hx of CHF, HTN, DM and Hypothyroidism who was admitted at [facility] in early October with respiratory failure Eventually she was treated and discharged to [facility] from where she was sent to [place] [facility] because of being lethargic In The ER patient was found to be hypoxemic and hypercarbic requiring intubation and mechanical ventilation An ID consult was requested for persistent fever despite antibiotics - cultures and serologies are pending Results from [place] are not available and the patient cannot provide any details of her illness PMH: HTN; CHK; DM; GERD; Hypothyroidism; Constipation PSH: Pacemaker insertion reason unknown; Knee surgery in the past SH: Never Smoked; No illegal drug use; No Alcohol, Residing at [facility] assisting living FH: No Known family hx Allergies: Ibuprofen Review of Systems - Review of Systems Systems not reviewed;Unavailable: Altered Mental Status, Intubated - Constitutional Constitutional: As Per HPI - EENT Eyes: absent: As Per HPI, Blind Spots, Blurred Vision, Change in Vision, Decreased Night Vision, Diplopia, Discharge, Dry Eye, Exophthalmos, Floaters, Irritation, Itchy Eyes, Loss of Peripheral Vision, Pain, Photophobia, Requires Corrective Lenses, Sees Flashes, Spots in Vision, Tunnel Vision, Other Visual Disturbances, Loss of Vision, Other Ears: absent: As Per HPI, Decreased Hearing, Ear Discharge, Ear Pain, Tinnitus, Abnormal Hearing, Disequilibrium, Dizziness, Other Nose/Mouth/Throat: absent: As Per HPI, Epistaxis, Nasal Congestion, Nasal Discharge, Nasal Obstruction, Nasal Trauma, Nose Pain, Post Nasal Drip, Sinus Pain, Sinus Pressure, Bleeding Gums, Change in Voice, Dental Pain, Dry Mouth, D ysphagia, Halitosis, Hoarsness, Lip Swelling, Mouth Lesions, Mouth Pain, Odynophagia, Sore Throat, Throat Swelling, Tongue Swelling, Facial Pain, Neck Pain, Neck Mass, Other - Breasts Breasts: absent: As Per HPI, Change in Shape, Mass, Pain, Nipple Discharge, N ipple Inversion, Skin Changes, Swelling, Other - Cardiovascular Cardiovascular: As Per HPI - Respiratory Respiratory: As Per HPI, Cough, Dyspnea - Gastrointestinal Gastrointestinal: absent: As Per HPI, Abdominal Pain, Belching, Bloating, Change in Bowel Habits, Change in Stool Character, Coffee Ground Emesis, Constipation, Cramping, Diarrhea, Dyspepsia, Dysphagia, Early Satiety, Excessive Flatus, Fecal Incontinence, Heartburn, Hematemesis, Hematochezia, Loose Stools, Melena, Adam sea, Odynophagia, Temesmus, Vomiting, Other - Genitourinary Genitourinary: absent: As Per HPI, Change in Urinary Stream, Difficulty Urinating, Dysuria, Flank Pain, Hematuria, Pyuria, Nocturia, Urinary Incontinence, Urinary Frequency, Urinary Hesitance, Urinary Urgency, Voiding Freq/Small Amts, Freq UTI, Hx Renal/Bladder Calculi, Hx /Renal Surgery, Bladder Distension, Other - Reproductive: Female Reproductive:Female: absent: As Per HPI, Amenorrhea, Amenorrhea/ Control, Currently Menstual, Cycle <21 Days, Cycle >35 Days, Cycle Variable, Menses 1-7 Days, Menses >/= 8 Days, Menses Variable, Cycle > 4 Weeks Between, No Menses for 6 Months, Heavy Menses, Light Menses, Normal Menses, Spotting Between Cycles, S/P Hysterectomy, Menopausal, Post Menopausal, Premenarche, Abnormal Vaginal Bleeding, Dysmenorrhea, Dyspareunia, Genital Lesions, Genital Pruritis, Pelvic Pain, Prolapse Symptoms, Sexual Dysfunction, Vaginal Discharge, Vaginal Dryness, Vaginal Odor, Vaginal Pruritis, Other - Menstruation Menstruation: absent: As Per HPI, Amenorrhea, Amenorrhea/ Control, Cur rently Menstual, Cycle <21 Days, Cycle >35 Days, Cycle Variable, Menses 1-7 Days, Menses >/= 8 Days, Menses Variable, Cycle > 4 Weeks Between, No Menses for 6 Months, Heavy Menses, Light Menses, Normal Menses, Spotting Between Cycles, S/P Hysterectomy, Menopausal, Post Menopausal, Premenarche, Abnormal Vaginal Bleeding, Dysmenorrhea, Other - Musculoskeletal Musculoskeletal: absent: As Per HPI, Abnormal Gait, Arthralgias, Atrophy, Back Pain, Deformity, Joint Swelling, Limited Range of Motion, Loss of Height, Muscle Cramps, Muscle Weakness, Myalgias, Neck Pain, Numbness, Radiating Pain into Limb, Stiffness, Tingling, Other - Integumentary Integumentary: absent: As Per HPI, Acne, Alopecia, Bleeding Lesions, Change in Hair, Change in Nails, Change in Pigmentation, Changing Lesions, Dry Skin, Erythema, Furuncle, Hirsutism, Lesions, New Lesions, Non-Healing Lesions, Photosensitivity, Pruritus, Rash, Skin Pain, Skin Ulcer, Sores, Striae, Swelling, Unusual Bruising, Wounds, Jaundice, Other - Neurological Neurological: absent: As Per HPI, Abnormal Gait, Abnormal Hearing, Abnormal Movements, Abnormal Speech, Behavioral Changes, Burning Sensations, Confusion, Convulsions, Disequilibrium, Dizziness, Numbness, Focal Weakness, Frequent Falls, Headaches, Lack of Coordination, Loss of Vision, Memory Loss, Paresthesias, Radicular Pain, Restless Legs, Sensory Deficit, Syncope, Tingling, Tremor, Vertigo, Weakness, Other Visual Disturbances, Other - Psychiatric Psychiatric: absent: As Per HPI, Abnormal Sleep Pattern, Anhedonia, Anxiety, A uditory Hallucinations, Behavioral Changes, Change in Appetite, Change in Libido, Confusion, Depression, Difficulty Concentrating, Hallucinations, Homicidal Ideation, Hopelessness, Irritability, Memory Loss, Mood Swings, Panic Attacks, Paranoia, Suicidal Ideation, Visual Hallucinations, Tactile Carl ucinations, Other - Endocrine Endocrine: absent: As Per HPI, Change in Body Appearance, Change in Libido, Cold Intolorance, Deepening of Voice, Excessive Sweating, Fatigue, Flushing, Heat Intolorance, Increase in Ring/Shoe/Hat Size, Palpitations, Polydipsia, Po lyphagia, Polyuria, Other - Hematologic/Lymphatic Hematologic: absent: As Per HPI, Easy Bleeding, Easy Bruising, Lymphadenopathy, Other Past Patient History - Infectious Disease Hx of Infectious Diseases: None - Past Medical History & Family History Past Medical History?: Yes - Past Social History Smoking Status: Never Smoked - CARDIAC Hx Congestive Heart Failure: Yes Hx Hypertension: Yes Hx Pacemaker: Yes Other/Comment: AV dual pacemaker - PULMONARY Hx Respiratory Disorders: No - NEUROLOGICAL Hx Neurological Disorder: No - HEENT Hx HEENT Problems: No - RENAL Hx Chronic Kidney Disease: No - ENDOCRINE/METABOLIC Hx Diabetes Insipidus: Yes Hx Hypothyroidism: Yes - HEMATOLOGICAL/ONCOLOGICAL Hx Blood Disorders: No - INTEGUMENTARY Hx Dermatological Problems: No - MUSCULOSKELETAL/RHEUMATOLOGICAL Hx Musculoskeletal Disorders: No Hx Falls: No - GASTROINTESTINAL Hx Diverticulitis: Yes Hx Gastroesophageal Reflux: Yes - GENITOURINARY/GYNECOLOGICAL Hx Genitourinary Disorders: No - PSYCHIATRIC Hx Psychophysiologic Disorder: No Hx Substance Use: No - SURGICAL HISTORY Hx Orthopedic Surgery: Yes Other/Comment: Pacemaker insertion - ANESTHESIA Hx Anesthesia: Yes Meds Allergies/Adverse Reactions: Allergies Allergy/AdvReac Type Severity Reaction Status Date / Time ibuprofen [From Advil] Allergy RASH Verified 11/05/18 20:31 - Medications Medications: Current Medications Acetaminophen (Tylenol 650mg/20.3ml Solution Ud) 650 mg NG Q6 PRN PRN Reason: fever: temp of > 100.4 F Last Admin: 11/09/18 15:30 Dose: 650 mg Acetazolamide (Diamox 250 Mg Tab) 250 mg PO BID JEANA Last Admin: 11/09/18 08:33 Dose: 250 mg Albuterol/Ipratropium (Duoneb 3 Mg/0.5 Mg (3 Ml) Ud) 3 ml INH RQ4 PRN PRN Reason: Shortness of Breath Carvedilol (Coreg) 3.125 mg PO Q12 JEANA Last Admin: 11/09/18 08:32 Dose: 3.125 mg Dextrose (Dextrose 50% Inj) 0 ml IV STAT PRN; Protocol PRN Reason: Hypoglycemia Protocol Dextrose (Glutose 15) 0 gm PO ONCE PRN; Protocol PRN Reason: Hypoglycemia Protocol Enoxaparin Sodium (Lovenox) 40 mg SC DAILY JEANA; Protocol Last Admin: 11/09/18 16:02 Dose: 40 mg Furosemide (Lasix) 40 mg IV DAILY JEANA Last Admin: 11/09/18 15:50 Dose: 40 mg Glucagon (Glucagen Diagnostic Kit) 0 mg IM STAT PRN; Protocol PRN Reason: Hypoglycemia Protocol Meropenem 1 gm/ Sodium (Chloride) 100 mls @ 100 mls/hr IVPB Q8 JEANA; Protocol Last Admin: 11/09/18 16:01 Dose: 100 mls/hr Vancomycin HCl 1 gm/ Sodium (Chloride) 250 mls @ 166.667 mls/hr IVPB Q12 JEANA; Protocol Insulin Human Lispro (Humalog) 0 units SC Q6H JEANA; Protocol Last Admin: 11/09/18 12:47 Dose: 1 units Lactobacillus Acidophilus (Bacid Acidophilus) 1 cap PO BID JEANA Last Admin: 11/09/18 16:11 Dose: 1 cap Levothyroxine Sodium (Synthroid) 37.5 mcg IVP DAILY JEANA Last Admin: 11/09/18 08:32 Dose: 37.5 mcg Pantoprazole Sodium (Protonix Ec Tab) 40 mg PO DAILY [facility] Last Admin: 11/09/18 08:32 Dose: 40 mg Potassium Chloride (K-Dur 20 Meq Er Tab) 20 meq PO DAILY [facility] Last Admin: 11/09/18 08:33 Dose: 20 meq Physical Exam - Constitutional Appears: No Acute Distress, Chronically Ill Additional comments: Intuvbated orally has new TLC No other devices - Head Exam Head Exam: ATRAUMATIC, NORMAL INSPECTION, NORMOCEPHALIC - Eye Exam Eye Exam: EOMI, PERRL. absent: Scleral icterus - ENT Exam ENT Exam: Mucous Membranes Dry, Normal External Ear Exam - Neck Exam Neck exam: Negative for: Lymphadenopathy - Respiratory Exam Respiratory Exam: Decreased Breath Sounds, Prolonged Expiratory Phase, Rhonchi - Cardiovascular Exam Cardiovascular Exam: Tachycardia, REGULAR RHYTHM, +S1, +S2 - GI/Abdominal Exam GI & Abdominal Exam: Diminished Bowel Sounds, Distended, Soft. absent: Rebound, Rigid, Tenderness - Rectal Exam Rectal Exam: Deferred - Exam Exam: NORMAL INSPECTION - Extremities Exam Extremities exam: Positive for: full ROM, normal capillary refill, pedal edema, pedal pulses present. Negative for: calf tenderness, joint swelling, tenderness - Back Exam Back exam: absent: CVA tenderness (L), CVA tenderness (R), paraspinal tenderness - Neurological Exam Neurological exam: Altered, CN II-XII Intact - Psychiatric Exam Psychiatric exam: Depressed - Skin Skin Exam: Dry, Intact Results - Vital Signs Recent Vital Signs: Last Vital Signs Temp 100.9 F H 11/09/18 15:30 Pulse 104 H 11/09/18 15:00 Resp 16 11/09/18 15:00 BP 104/64 11/09/18 15:50 Pulse Ox 100 11/09/18 15:00 - Labs Result Diagrams: 11/09/18 04:41 11/09/18 04:41 Labs: Laboratory Results - last 24 hr 11/08/18 11/08/18 11/09/18 18:01 22:29 04:41 WBC 2.0 L* RBC 4.53 Hgb 11.7 L Hct 36.7 MCV 81.2 MCH 25.8 L MCHC 31.8 L RDW 19.7 H Plt Count 119 L pCO2 pO2 HCO3 ABG pH ABG Total CO2 ABG O2 Saturation ABG O2 Content ABG Base Excess ABG Hemoglobin ABG Carboxyhemoglobin POC ABG HHb (Measured) ABG Methemoglobin ABG O2 Capacity Favian Test A-a O2 Difference Hgb O2 Saturation Vent Mode Mechanical Rate FiO2 Tidal Volume PEEP Pressure Support Sodium Potassium Chloride Carbon Dioxide Anion Gap BUN Creatinine Est GFR ( Amer) Est GFR (Non-Af Amer) POC Glucose (mg/dL) 174 H 166 H Random Glucose Calcium Phosphorus Magnesium Total Bilirubin AST ALT Alkaline Phosphatase Total Protein Albumin Globulin Albumin/Globulin Ratio Influenza Typ A,B (EIA) 11/09/18 11/09/18 11/09/18 04:41 04:50 05:13 WBC RBC Hgb Hct MCV MCH MCHC RDW Plt Count pCO2 50 H pO2 100 HCO3 32.9 H ABG pH 7.46 H ABG Total CO2 37.1 H ABG O2 Saturation 98.4 H ABG O2 Content 15.8 ABG Base Excess 10.3 H ABG Hemoglobin 11.7 ABG Carboxyhemoglobin 1.9 H POC ABG HHb (Measured) 1.5 ABG Methemoglobin 1.4 ABG O2 Capacity 16.1 Favian Test Yes A-a O2 Difference 194.0 Hgb O2 Saturation 95.2 Vent Mode Simv Mechanical Rate 12 FiO2 50.0 Tidal Volume 500 PEEP 8 Pressure Support 10 Sodium 139 Potassium 3.9 Chloride 101 Carbon Dioxide 32 H Anion Gap 10 BUN 27 H Creatinine 0.7 Est GFR ( Amer) > 60 Est GFR (Non-Af Amer) > 60 POC Glucose (mg/dL) 179 H Random Glucose 165 H Calcium 7.8 L Phosphorus 3.8 Magnesium 1.9 Total Bilirubin 1.2 AST 33 ALT 39 Alkaline Phosphatase 76 Total Protein 6.1 L Albumin 2.9 L Globulin 3.2 Albumin/Globulin Ratio 0.9 L Influenza Typ A,B (EIA) 11/09/18 11/09/18 08:50 11:26 WBC RBC Hgb Hct MCV MCH MCHC RDW Plt Count pCO2 pO2 HCO3 ABG pH ABG Total CO2 ABG O2 Saturation ABG O2 Content ABG Base Excess ABG Hemoglobin ABG Carboxyhemoglobin POC ABG HHb (Measured) ABG Methemoglobin ABG O2 Capacity Favian Test A-a O2 Difference Hgb O2 Saturation Vent Mode Mechanical Rate FiO2 Tidal Volume PEEP Pressure Support Sodium Potassium Chloride Carbon Dioxide Anion Gap BUN Creatinine Est GFR ( Amer) Est GFR (Non-Af Amer) POC Glucose (mg/dL) 180 H Random Glucose Calcium Phosphorus Magnesium Total Bilirubin AST ALT Alkaline Phosphatase Total Protein Albumin Globulin Albumin/Globulin Ratio Influenza Typ A,B (EIA) Negative for flu a/b Assessment & Plan (1) CHF (congestive heart failure) Status: Acute (2) Dehydration Status: Acute (3) Pneumonia Status: Acute (4) Respiratory failure Status: Acute (5) Sepsis Status: Acute (6) UTI (urinary tract infection) Status: Acute - Assessment and Plan (Free Text) Assessment: Relative neutropenia in the setting of resp failure with pneumonia raises possibility of underlying myelodysplasia, secondary viral infection, drug toxicity ? , overwhelming gram negative infection etc For now will adjust IV antibiotics to include coverage for Hospital aquired organisms would d/c zithromax and zosyn and start Vanco/ Merrem empiric antifungal rx does not appear to be warranted at this time will add empiric oseltamivir for 5 days despite negative rapid flu test
[2018-11-09] MEDS ORDERED: Sodium Chloride 3% for Inhalation 4 ML VIAL.NEB IH PRN (16:50)
[2018-11-09] MEDS: Oseltamivir 6 MG/ML PO SCH (18:36)
[2018-11-10] MEDS: Meropenem 1 GM in Sodium Chloride 0.9% 100 ML IVPB SCH ×3 (00:06→16:11)
[2018-11-10] MEDS: Acetaminophen 650mg/20.3ml solution UD NG PRN (04:42)
[2018-11-10 05:07] LABS: ABG ALLEN TEST YES; ARTERIAL BLOOD GAS HCO3 32.7 mmol/L (21-28); ARTERIAL BLOOD GAS O2 CAPACITY 15.2 mL/dL (16-24); ARTERIAL BLOOD GAS O2 SAT 98.9 % (95-98); ARTERIAL BLOOD GAS PCO2 51 mm/Hg (35-45); ARTERIAL BLOOD GAS PH 7.45 (7.35-7.45); ARTERIAL BLOOD GAS PO2 99 mm/Hg (80-100)
[2018-11-10 05:08] LABS: HEMOGLOBIN 10.7 g/dL (12.0-16.0); MEAN CELL VOLUME 81.6 fl (81.0-99.0); MEAN CORPUSCULAR HEMOGLOBIN 25.7 pg (27.0-31.0); MEAN CORPUSCULAR HGB CONC 31.6 g/dL (33.0-37.0); RBC 4.15 Mil/uL (3.80-5.20); WHITE BLOOD COUNT 3.2 K/uL (4.8-10.8)
[2018-11-10 05:46] LABS: ALB/GLOB RATIO 0.9 (1.0-2.1); ALBUMIN 2.8 g/dL (3.5-5.0); ALT/SGPT 24 U/L (9-52); AST/SGOT 19 U/L (14-36); BLOOD UREA NITROGEN 21 mg/dl (7-17); CALCIUM 8.3 mg/dL (8.4-10.2); GFR NON-AFRICAN AMERICAN 60
[2018-11-10] MEDS: Insulin Lispro (humaLOG) 100 Units/ml Inj SC SCH ×4 (05:57→23:55)
--- NOTE | 2018-11-10 07:23 | CP.CCUPN ---
CCU Subjective - Physician Review Subjective (Free Text): 11/10/18 09:19 The patient was Seen/interviewed and examined by me at the bedside during ICU round, Medical records reviewed and Management issues were discussed and formulated with the house staff. Events reviewed 82 Years old Female with PMHx of HTN, CHF, DM, Hypothyroidism Who was sent from the longterm for fevers 3 days and found to be unresponsive Pt was admitted for AMS, and acute respiratory distress requiring intubation in ED (11/05/18). Remains orally intubated, more awake today Propofol sedation stopped yesterday Tolerating SIMV, She was placed on CPAP+PS this morning and tolerating so far Afebrile, NSR on the monitor Hemodynamically improved No Vasopressors Last 24H I&O [id number]/[id number] This morning labs revealed WBC trending up, H/H stable, stable renal function BUN/Cr 21/0.9 K 3.4, Supplemented Blood culture so far negative, Urine culture + E Coli CCU Objective - Vital Signs / Intake & Output Vital Signs (Last 4 hours): Vital Signs Temp Pulse Resp BP Pulse Ox 11/10/18 05:42 100.3 F H 11/10/18 04:42 100.5 F H 11/10/18 04:00 100.5 F H 73 12 99/66 L 99 Intake and Output (Last 8hrs): Intake & Output 11/09/18 11/10/18 11/10/18 22:59 06:59 14:59 Intake Total 984 440 Output Total 670 Balance 314 440 Weight 223 lb 14.4 oz Intake: IV 4 Intake, Piggyback 450 100 Tube Feeding 320 240 Free Water Flush 210 100 Output: Urine 670 Urethral (Amaral) 670 Other: # Bowel Movements 1 - Physical Exam Head: Positive for: Atraumatic Pupils: Positive for: PERRL. Negative for: Non-Reactive, Pinpoint Extroacular Muscles: Positive for: EOMI. Negative for: Gaze Palsy Conjunctiva: Positive for: Normal. Negative for: Injected, Icteric Mouth: Positive for: Moist Mucous Membranes Pharnyx: Positive for: Normal Nose (Internal): Positive for: Normal Inspection Respiratory/Chest: Positive for: Decreased Breath Sounds (in the lower lobes b/l ), Other (course breath sounds, crackles in the R>L ). Negative for: Clear to Auscultation Cardiovascular: Positive for: Regular Rate and Rhythm, Normal S1, S2, Peripheal Pulses Present. Negative for: Murmurs, Irregular Rhythm, Tachycardic, Bradycardic Abdomen: Positive for: Other (obese ). Negative for: Tenderness, Guarding Genitourinary/Pelvic Exam: Positive for: Other (Amaral draining yellow urine ) Upper Extremity: Positive for: Edema, Other (moving b/l upper ext when stimulated. Mild edema of the hands b/l ) Lower Extremity: Positive for: Other (mild edema, scds on, moving both ext ) Psychiatric: Positive for: Alert - Medications Active Medications: Active Medications Generic Name Dose Route Start Last Admin Trade Name Freq PRN Reason Stop Dose Admin Acetaminophen 650 mg 11/09/18 14:15 11/10/18 04:42 Tylenol 650mg/20.3ml Solution Ud NG 650 mg Q6 PRN Administration fever: temp of > 100.4 F Acetazolamide 250 mg 11/08/18 09:00 11/09/18 17:45 Diamox 250 Mg Tab PO 250 mg BID JEANA Administration Albuterol/Ipratropium 3 ml 11/09/18 08:29 Duoneb 3 Mg/0.5 Mg (3 Ml) Ud INH RQ4 PRN Shortness of Breath Carvedilol 3.125 mg 11/06/18 09:00 11/09/18 20:33 Coreg PO 3.125 mg Q12 JEANA Administration Dextrose 0 ml 11/06/18 08:46 Dextrose 50% Inj IV STAT PRN Hypoglycemia Protocol Protocol Dextrose 0 gm 11/06/18 08:46 Glutose 15 PO ONCE PRN Hypoglycemia Protocol Protocol Enoxaparin Sodium 40 mg 11/09/18 15:45 11/09/18 16:02 Lovenox SC 40 mg DAILY JEANA Administration Protocol Furosemide 40 mg 11/09/18 15:45 11/09/18 15:50 Lasix IV 40 mg DAILY JEANA Administration Glucagon 0 mg 11/06/18 08:46 Glucagen Diagnostic Kit IM STAT PRN Hypoglycemia Protocol Protocol Meropenem 1 gm/ Sodium 100 mls @ 100 mls/hr 11/09/18 17:00 11/10/18 00:06 Chloride IVPB 100 mls/hr Q8 JEANA Administration Protocol Vancomycin HCl 1 gm/ Sodium 250 mls @ 166.667 mls/hr 11/09/18 21:00 11/09/18 20:40 Chloride IVPB 166.667 mls/hr Q12 JEANA Administration Protocol Insulin Human Lispro 0 units 11/06/18 00:15 11/10/18 05:57 Humalog SC 1 units Q6H JEANA Administration Protocol Lactobacillus Acidophilus 1 cap 11/06/18 17:00 11/09/18 16:11 Bacid Acidophilus PO 1 cap BID JEANA Administration Levothyroxine Sodium 37.5 mcg 11/07/18 09:00 11/09/18 08:32 Synthroid IVP 37.5 mcg DAILY JEANA Administration Oseltamivir Phosphate 75 mg 11/09/18 17:00 11/09/18 18:36 Tamiflu Susp PO 75 mg BID JEANA Administration Protocol Pantoprazole Sodium 40 mg 11/06/18 09:00 11/09/18 08:32 Protonix Ec Tab PO 40 mg DAILY JEANA Administration Potassium Chloride 20 meq 11/07/18 09:00 11/09/18 08:33 K-Dur 20 Meq Er Tab PO 20 meq DAILY JEANA Administration - Patient Studies Lab Studies: Microbiology Studies 11/05/18 21:00 Blood Culture - Preliminary Blood NO GROWTH AFTER 4 DAYS 11/07/18 14:30 Gram Stain - Final Trachasp Sputum Culture - Final NORMAL ORAL JOAQUIN 11/05/18 23:15 Blood Culture - Preliminary Blood NO GROWTH AFTER 3 DAYS Lab Studies 11/10/18 11/10/18 11/10/18 Range/Units 05:48 04:59 04:19 WBC (4.8-10.8) K/uL RBC (3.80-5.20) Mil/uL Hgb (12.0-16.0) g/dL Hct (34.0-47.0) % MCV (81.0-99.0) fl MCH (27.0-31.0) pg MCHC (33.0-37.0) g/dL RDW (11.5-14.5) % Plt Count (130-400) K/uL pCO2 51 H (35-45) mm/Hg pO2 99 (80-100) mm/Hg HCO3 32.7 H (21-28) mmol/L ABG pH 7.45 (7.35-7.45) ABG Total CO2 37.0 H (22-28) mmol/L ABG O2 Saturation 98.9 H (95-98) % ABG O2 Content 15.0 (15-23) ML/dL ABG Base Excess 10.0 H (-2.0-3.0) mmol/L ABG Hemoglobin 11.0 L (11.7-17.4) g/dL ABG Carboxyhemoglobin 2.0 H (0.5-1.5) % POC ABG HHb (Measured) 1.1 (0.0-5.0) % ABG Methemoglobin 0.7 (0.0-3.0) % ABG O2 Capacity 15.2 L (16-24) mL/dL Favian Test Yes A-a O2 Difference 194.0 mm/Hg Hgb O2 Saturation 96.2 (95.0-98.0) % Vent Mode Simv Mechanical Rate 12 FiO2 50.0 % Tidal Volume 500 PEEP 8 Pressure Support 10 Sodium 140 (132-148) mmol/l Potassium 3.4 L (3.6-5.0) MMOL/L Chloride 102 (98-107) mmol/L Carbon Dioxide 34 H (22-30) mmol/L Anion Gap 7 L (10-20) BUN 21 H (7-17) mg/dl Creatinine 0.9 (0.7-1.2) mg/dl Est GFR ( Amer) > 60 Est GFR (Non-Af Amer) 60 POC Glucose (mg/dL) 162 H (65-110) mg/dL Random Glucose 171 H (65-105) mg/dL Calcium 8.3 L (8.4-10.2) mg/dL Phosphorus 3.3 (2.5-4.5) mg/dl Magnesium 1.9 (1.6-2.3) MG/DL Total Bilirubin 0.6 (0.2-1.3) mg/dl AST 19 (14-36) U/L ALT 24 (9-52) U/L Alkaline Phosphatase 91 (38-126) U/L Total Protein 5.8 L (6.3-8.2) G/DL Albumin 2.8 L (3.5-5.0) g/dL Globulin 3.0 (2.2-3.9) gm/dL Albumin/Globulin Ratio 0.9 L (1.0-2.1) Infectious [place] Assay (NEGATIVE) Influenza Typ A,B (EIA) (NEGATIVE) Ur L.pneumophila Ag (NEGATIVE) Mycoplasma pneumon IgM (NEGATIVE) 11/10/18 11/09/18 11/09/18 Range/Units 04:19 22:59 18:12 WBC 3.2 L D (4.8-10.8) K/uL RBC 4.15 (3.80-5.20) Mil/uL Hgb 10.7 L (12.0-16.0) g/dL Hct 33.9 L (34.0-47.0) % MCV 81.6 (81.0-99.0) fl MCH 25.7 L (27.0-31.0) pg MCHC 31.6 L (33.0-37.0) g/dL RDW 20.0 H (11.5-14.5) % Plt Count 123 L (130-400) K/uL pCO2 (35-45) mm/Hg pO2 (80-100) mm/Hg HCO3 (21-28) mmol/L ABG pH (7.35-7.45) ABG Total CO2 (22-28) mmol/L ABG O2 Saturation (95-98) % ABG O2 Content (15-23) ML/dL ABG Base Excess (-2.0-3.0) mmol/L ABG Hemoglobin (11.7-17.4) g/dL ABG Carboxyhemoglobin (0.5-1.5) % POC ABG HHb (Measured) (0.0-5.0) % ABG Methemoglobin (0.0-3.0) % ABG O2 Capacity (16-24) mL/dL Favian Test A-a O2 Difference mm/Hg Hgb O2 Saturation (95.0-98.0) % Vent Mode Mechanical Rate FiO2 % Tidal Volume PEEP Pressure Support Sodium (132-148) mmol/l Potassium (3.6-5.0) MMOL/L Chloride (98-107) mmol/L Carbon Dioxide (22-30) mmol/L Anion Gap (10-20) BUN (7-17) mg/dl Creatinine (0.7-1.2) mg/dl Est GFR ( Amer) Est GFR (Non-Af Amer) POC Glucose (mg/dL) 144 H (65-110) mg/dL Random Glucose (65-105) mg/dL Calcium (8.4-10.2) mg/dL Phosphorus (2.5-4.5) mg/dl Magnesium (1.6-2.3) MG/DL Total Bilirubin (0.2-1.3) mg/dl AST (14-36) U/L ALT (9-52) U/L Alkaline Phosphatase (38-126) U/L Total Protein (6.3-8.2) G/DL Albumin (3.5-5.0) g/dL Globulin (2.2-3.9) gm/dL Albumin/Globulin Ratio (1.0-2.1) Infectious [place] Assay (NEGATIVE) Influenza Typ A,B (EIA) (NEGATIVE) Ur L.pneumophila Ag (NEGATIVE) Mycoplasma pneumon IgM Negative (NEGATIVE) 11/09/18 11/09/18 11/09/18 Range/Units 18:12 18:12 17:42 WBC (4.8-10.8) K/uL RBC (3.80-5.20) Mil/uL Hgb (12.0-16.0) g/dL Hct (34.0-47.0) % MCV (81.0-99.0) fl MCH (27.0-31.0) pg MCHC (33.0-37.0) g/dL RDW (11.5-14.5) % Plt Count (130-400) K/uL pCO2 (35-45) mm/Hg pO2 (80-100) mm/Hg HCO3 (21-28) mmol/L ABG pH (7.35-7.45) ABG Total CO2 (22-28) mmol/L ABG O2 Saturation (95-98) % ABG O2 Content (15-23) ML/dL ABG Base Excess (-2.0-3.0) mmol/L ABG Hemoglobin (11.7-17.4) g/dL ABG Carboxyhemoglobin (0.5-1.5) % POC ABG HHb (Measured) (0.0-5.0) % ABG Methemoglobin (0.0-3.0) % ABG O2 Capacity (16-24) mL/dL Favian Test A-a O2 Difference mm/Hg Hgb O2 Saturation (95.0-98.0) % Vent Mode Mechanical Rate FiO2 % Tidal Volume PEEP Pressure Support Sodium (132-148) mmol/l Potassium (3.6-5.0) MMOL/L Chloride (98-107) mmol/L Carbon Dioxide (22-30) mmol/L Anion Gap (10-20) BUN (7-17) mg/dl Creatinine (0.7-1.2) mg/dl Est GFR ( Amer) Est GFR (Non-Af Amer) POC Glucose (mg/dL) 132 H (65-110) mg/dL Random Glucose (65-105) mg/dL Calcium (8.4-10.2) mg/dL Phosphorus (2.5-4.5) mg/dl Magnesium (1.6-2.3) MG/DL Total Bilirubin (0.2-1.3) mg/dl AST (14-36) U/L ALT (9-52) U/L Alkaline Phosphatase (38-126) U/L Total Protein (6.3-8.2) G/DL Albumin (3.5-5.0) g/dL Globulin (2.2-3.9) gm/dL Albumin/Globulin Ratio (1.0-2.1) Infectious [place] Assay Negative (NEGATIVE) Influenza Typ A,B (EIA) (NEGATIVE) Ur L.pneumophila Ag Negative (NEGATIVE) Mycoplasma pneumon IgM (NEGATIVE) 11/09/18 11/09/18 Range/Units 11:26 08:50 WBC (4.8-10.8) K/uL RBC (3.80-5.20) Mil/uL Hgb (12.0-16.0) g/dL Hct (34.0-47.0) % MCV (81.0-99.0) fl MCH (27.0-31.0) pg MCHC (33.0-37.0) g/dL RDW (11.5-14.5) % Plt Count (130-400) K/uL pCO2 (35-45) mm/Hg pO2 (80-100) mm/Hg HCO3 (21-28) mmol/L ABG pH (7.35-7.45) ABG Total CO2 (22-28) mmol/L ABG O2 Saturation (95-98) % ABG O2 Content (15-23) ML/dL ABG Base Excess (-2.0-3.0) mmol/L ABG Hemoglobin (11.7-17.4) g/dL ABG Carboxyhemoglobin (0.5-1.5) % POC ABG HHb (Measured) (0.0-5.0) % ABG Methemoglobin (0.0-3.0) % ABG O2 Capacity (16-24) mL/dL Favian Test A-a O2 Difference mm/Hg Hgb O2 Saturation (95.0-98.0) % Vent Mode Mechanical Rate FiO2 % Tidal Volume PEEP Pressure Support Sodium (132-148) mmol/l Potassium (3.6-5.0) MMOL/L Chloride (98-107) mmol/L Carbon Dioxide (22-30) mmol/L Anion Gap (10-20) BUN (7-17) mg/dl Creatinine (0.7-1.2) mg/dl Est GFR ( Amer) Est GFR (Non-Af Amer) POC Glucose (mg/dL) 180 H (65-110) mg/dL Random Glucose (65-105) mg/dL Calcium (8.4-10.2) mg/dL Phosphorus (2.5-4.5) mg/dl Magnesium (1.6-2.3) MG/DL Total Bilirubin (0.2-1.3) mg/dl AST (14-36) U/L ALT (9-52) U/L Alkaline Phosphatase (38-126) U/L Total Protein (6.3-8.2) G/DL Albumin (3.5-5.0) g/dL Globulin (2.2-3.9) gm/dL Albumin/Globulin Ratio (1.0-2.1) Infectious [place] Assay (NEGATIVE) Influenza Typ A,B (EIA) Negative for flu a/b (NEGATIVE) Ur L.pneumophila Ag (NEGATIVE) Mycoplasma pneumon IgM (NEGATIVE) Laboratory Results - last 24 hr 11/09/18 11/09/18 11/09/18 08:50 11:26 17:42 WBC RBC Hgb Hct MCV MCH MCHC RDW Plt Count pCO2 pO2 HCO3 ABG pH ABG Total CO2 ABG O2 Saturation ABG O2 Content ABG Base Excess ABG Hemoglobin ABG Carboxyhemoglobin POC ABG HHb (Measured) ABG Methemoglobin ABG O2 Capacity Favian Test A-a O2 Difference Hgb O2 Saturation Vent Mode Mechanical Rate FiO2 Tidal Volume PEEP Pressure Support Sodium Potassium Chloride Carbon Dioxide Anion Gap BUN Creatinine Est GFR ( Amer) Est GFR (Non-Af Amer) POC Glucose (mg/dL) 180 H 132 H Random Glucose Calcium Phosphorus Magnesium Total Bilirubin AST ALT Alkaline Phosphatase Total Protein Albumin Globulin Albumin/Globulin Ratio Infectious [place] Assay Influenza Typ A,B (EIA) Negative for flu a/b Ur L.pneumophila Ag Mycoplasma pneumon IgM 11/09/18 11/09/18 11/09/18 18:12 18:12 18:12 WBC RBC Hgb Hct MCV MCH MCHC RDW Plt Count pCO2 pO2 HCO3 ABG pH ABG Total CO2 ABG O2 Saturation ABG O2 Content ABG Base Excess ABG Hemoglobin ABG Carboxyhemoglobin POC ABG HHb (Measured) ABG Methemoglobin ABG O2 Capacity Favian Test A-a O2 Difference Hgb O2 Saturation Vent Mode Mechanical Rate FiO2 Tidal Volume PEEP Pressure Support Sodium Potassium Chloride Carbon Dioxide Anion Gap BUN Creatinine Est GFR ( Amer) Est GFR (Non-Af Amer) POC Glucose (mg/dL) Random Glucose Calcium Phosphorus Magnesium Total Bilirubin AST ALT Alkaline Phosphatase Total Protein Albumin Globulin Albumin/Globulin Ratio Infectious [place] Assay Negative Influenza Typ A,B (EIA) Ur L.pneumophila Ag Negative Mycoplasma pneumon IgM Negative 11/09/18 11/10/18 11/10/18 22:59 04:19 04:19 WBC 3.2 L D RBC 4.15 Hgb 10.7 L Hct 33.9 L MCV 81.6 MCH 25.7 L MCHC 31.6 L RDW 20.0 H Plt Count 123 L pCO2 pO2 HCO3 ABG pH ABG Total CO2 ABG O2 Saturation ABG O2 Content ABG Base Excess ABG Hemoglobin ABG Carboxyhemoglobin POC ABG HHb (Measured) ABG Methemoglobin ABG O2 Capacity Favian Test A-a O2 Difference Hgb O2 Saturation Vent Mode Mechanical Rate FiO2 Tidal Volume PEEP Pressure Support Sodium 140 Potassium 3.4 L Chloride 102 Carbon Dioxide 34 H Anion Gap 7 L BUN 21 H Creatinine 0.9 Est GFR ( Amer) > 60 Est GFR (Non-Af Amer) 60 POC Glucose (mg/dL) 144 H Random Glucose 171 H Calcium 8.3 L Phosphorus 3.3 Magnesium 1.9 Total Bilirubin 0.6 AST 19 ALT 24 Alkaline Phosphatase 91 Total Protein 5.8 L Albumin 2.8 L Globulin 3.0 Albumin/Globulin Ratio 0.9 L Infectious [place] Assay Influenza Typ A,B (EIA) Ur L.pneumophila Ag Mycoplasma pneumon IgM 11/10/18 11/10/18 04:59 05:48 WBC RBC Hgb Hct MCV MCH MCHC RDW Plt Count pCO2 51 H pO2 99 HCO3 32.7 H ABG pH 7.45 ABG Total CO2 37.0 H ABG O2 Saturation 98.9 H ABG O2 Content 15.0 ABG Base Excess 10.0 H ABG Hemoglobin 11.0 L ABG Carboxyhemoglobin 2.0 H POC ABG HHb (Measured) 1.1 ABG Methemoglobin 0.7 ABG O2 Capacity 15.2 L Favian Test Yes A-a O2 Difference 194.0 Hgb O2 Saturation 96.2 Vent Mode Simv Mechanical Rate 12 FiO2 50.0 Tidal Volume 500 PEEP 8 Pressure Support 10 Sodium Potassium Chloride Carbon Dioxide Anion Gap BUN Creatinine Est GFR ( Amer) Est GFR (Non-Af Amer) POC Glucose (mg/dL) 162 H Random Glucose Calcium Phosphorus Magnesium Total Bilirubin AST ALT Alkaline Phosphatase Total Protein Albumin Globulin Albumin/Globulin Ratio Infectious [place] Assay Influenza Typ A,B (EIA) Ur L.pneumophila Ag Mycoplasma pneumon IgM Radiology Impressions: Radiology Impressions Chest X-Ray 11/09/18 09:00 IMPRESSION: ETT and NGT as above. Bibasilar atelectasis and/or infiltrates with bilateral effusions. Slightly improved pulmonary venous congestive changes. Small bilateral effusions.. . Chest X-Ray 11/09/18 12:51 IMPRESSION: S/p TLC insertion via right internal jugular approach. Catheter tip in satisfactory position. No visible pneumothorax. Otherwise no interval change. Fingerstick Blood Sugar Results: 162 Review of Systems - Review of Systems Systems not reviewed;Unavailable: Intubated Critical Care Progress Note - Ventilator Checklist Head of Bed 30 Degrees: Yes Daily Sedation Vacation: Yes Daily Assessment of Readiness to Wean: Yes Daily Spontaneous Breathing Trial: Yes PUD Prophalyxis: Yes DVT Prophylaxis: Yes Oral Care with Chlorhexidine Gluconate {CHG}: Yes - Extremities/Vascular Does the Patient have a Central Venous Catheter?: Yes Does the Patient need a Central Venous Catheter?: Yes Does the Patient have a [place]ar[place] Catheter?: Yes Does the Patient need a [place] Catheter?: Yes Assessment/Plan (1) Respiratory failure Current Visit: Yes Status: Acute Priority: High Comment: Acute hypercapnic respiratory failure, intubated (11/06) propofol sedation stopped, more awake roday Patient not tolerating PS trials so far, she was placed on CPAP again today. Continue Duonebs q4h. (2) Severe sepsis Current Visit: Yes Status: Acute Priority: High Comment: Patient developed VAP while on Zosyn and Zithro, broadened coverage to Meropenem and Vancomycin. Blood culture so far negative, Urine culture + E Coli Hemodynamically improved No Vasopressors ID appretiated Neutropenia improved (3) Pneumonia Current Visit: Yes Status: Acute Comment: As per severe sepsis (4) UTI (urinary tract infection) Current Visit: Yes Status: Acute (5) CHF (congestive heart failure) Current Visit: Yes Status: Acute Priority: Medium Comment: On IV lasix 40 mg BID but developed sever alkalemia, now on 40 mg IV DAILY and Diamox 250 mg Po BID - Assessment and Plan (Free Text) Assessment: DVT proph - lovenox GI proph - protonix amaral for strict I/O's during acute illness Code status - DNR RIJ TLC (11/09) Critical Care Time spent 50 minutes
[2018-11-10] MEDS: Enoxaparin 40 mg Syringe SC SCH (08:07)
[2018-11-10] MEDS: Potassium Chloride 20 mEq ER Tab PO SCH (08:07)
[2018-11-10] MEDS: Levothyroxine 100 mcg (0.1 mg) Inj IVP SCH (08:08)
[2018-11-10] MEDS: Pantoprazole 40 mg EC Tab PO SCH (08:08)
[2018-11-10] MEDS: Oseltamivir 6 MG/ML PO SCH ×2 (08:09→16:11)
[2018-11-10] MEDS: Lactobacillus Acidophilus 500 MU Cap PO SCH ×2 (11:36→16:13)
--- NOTE | 2018-11-10 11:52 | CP.PCM.PN ---
Subjective - Date & Time of Evaluation Date of Evaluation: 11/10/18 Time of Evaluation: 11:52 - Subjective Subjective: STILL INTUBATED AND BEING VENTILATED MORE AWAKE AND ALERT ON CPAP Objective - Vital Signs/Intake and Output Vital Signs (last 24 hours): Temp Pulse Resp BP Pulse Ox 99.8 F H 83 12 114/58 L 98 11/10/18 08:00 11/10/18 10:00 11/10/18 10:00 11/10/18 10:00 11/10/18 10:00 Intake and Output: 11/10/18 11/10/18 06:59 18:59 Intake Total 1050 650 Output Total 1300 Balance 1050 -650 - Medications Medications: Current Medications Acetaminophen (Tylenol 650mg/20.3ml Solution Ud) 650 mg NG Q6 PRN PRN Reason: fever: temp of > 100.4 F Last Admin: 11/10/18 04:42 Dose: 650 mg Acetazolamide (Diamox 250 Mg Tab) 250 mg PO BID JEANA Last Admin: 11/10/18 08:07 Dose: 250 mg Albuterol/Ipratropium (Duoneb 3 Mg/0.5 Mg (3 Ml) Ud) 3 ml INH RQ4 PRN PRN Reason: Shortness of Breath Carvedilol (Coreg) 3.125 mg PO Q12 JEANA Last Admin: 11/10/18 08:06 Dose: 3.125 mg Dextrose (Dextrose 50% Inj) 0 ml IV STAT PRN; Protocol PRN Reason: Hypoglycemia Protocol Dextrose (Glutose 15) 0 gm PO ONCE PRN; Protocol PRN Reason: Hypoglycemia Protocol Enoxaparin Sodium (Lovenox) 40 mg SC DAILY JEANA; Protocol Last Admin: 11/10/18 08:07 Dose: 40 mg Furosemide (Lasix) 40 mg IV DAILY JEANA Last Admin: 11/10/18 08:07 Dose: 40 mg Glucagon (Glucagen Diagnostic Kit) 0 mg IM STAT PRN; Protocol PRN Reason: Hypoglycemia Protocol Meropenem 1 gm/ Sodium (Chloride) 100 mls @ 100 mls/hr IVPB Q8 JEANA; Protocol Last Admin: 11/10/18 08:08 Dose: 100 mls/hr Vancomycin HCl 1 gm/ Sodium (Chloride) 250 mls @ 166.667 mls/hr IVPB Q12 JEANA; Protocol Last Admin: 11/10/18 08:09 Dose: 166.667 mls/hr Insulin Human Lispro (Humalog) 0 units SC Q6H [facility]; Protocol Last Admin: 11/10/18 11:21 Dose: Not Given Lactobacillus Acidophilus (Bacid Acidophilus) 1 cap PO BID [facility] Last Admin: 11/10/18 11:36 Dose: 1 cap Levothyroxine Sodium (Synthroid) 37.5 mcg IVP DAILY [facility] Last Admin: 11/10/18 08:08 Dose: 37.5 mcg Oseltamivir Phosphate (Tamiflu Susp) 75 mg PO BID [facility]; Protocol Last Admin: 11/10/18 08:09 Dose: 75 mg Pantoprazole Sodium (Protonix Ec Tab) 40 mg PO DAILY [facility] Last Admin: 11/10/18 08:08 Dose: 40 mg Potassium Chloride (K-Dur 20 Meq Er Tab) 20 meq PO DAILY [facility] Last Admin: 11/10/18 08:07 Dose: 20 meq - Labs Labs: 11/10/18 04:19 11/10/18 04:19 PT 11.8 Seconds (9.8-13.1) 11/05/18 21:00 INR 1.0 11/05/18 21:00 APTT 37.4 Seconds (25.6-37.1) H 11/05/18 21:00 - Constitutional Appears: Chronically Ill - Head Exam Head Exam: ATRAUMATIC, NORMAL INSPECTION, NORMOCEPHALIC - Eye Exam Eye Exam: EOMI, Normal appearance, PERRL Pupil Exam: NORMAL ACCOMODATION, PERRL - ENT Exam ENT Exam: Mucous Membranes Moist, Normal Exam - Neck Exam Neck Exam: Full ROM, Normal Inspection. absent: Lymphadenopathy - Respiratory Exam Respiratory Exam: Rales, NORMAL BREATHING PATTERN Additional comments: ETT IN GOOD POSITION - Cardiovascular Exam Cardiovascular Exam: REGULAR RHYTHM, +S1, +S2. absent: Murmur - GI/Abdominal Exam GI & Abdominal Exam: Soft, Normal Bowel Sounds. absent: Tenderness - Rectal Exam Rectal Exam: NORMAL INSPECTION - Extremities Exam Extremities Exam: Full ROM, Normal Capillary Refill, Normal Inspection. absent: Joint Swelling, Pedal Edema - Back Exam Back Exam: NORMAL INSPECTION - Neurological Exam Neurological Exam: Alert, Awake, CN II-XII Intact, Oriented x3 - Skin Skin Exam: Dry, Intact, Normal Color, Warm Assessment and Plan - Assessment and Plan (Free Text) Assessment: ACUTE RESPIRATORY FAILURE PNEUMONIA Plan: CONTINUE CURRENT RX ATTEMPT TO EXTUBATE
--- NOTE | 2018-11-10 12:46 | RAD ---
Date of service: 11/10/2018 HISTORY: ETT placement COMPARISON: Comparison chest dated 11/09/2018. FINDINGS: In situ ETT, the tip which lies approximately 5.3 cm above mamadou. Previously noted in situ NGT is not seen with certainty on this study and the could be repeated if necessary. No change right IJ central line with tip in the SVC LUNGS: Bibasilar atelectasis and/or infiltrates with bilateral effusions PLEURA: As above no pneumothorax apparent. CARDIOVASCULAR: Mild aortic the atherosclerotic calcification present. Cardiomegaly. No change multi lead pacemaker/defibrillator. No pulmonary vascular congestion. OSSEOUS STRUCTURES: No significant abnormalities. VISUALIZED UPPER ABDOMEN: Normal. OTHER FINDINGS: None. IMPRESSION: Support lines and tubes as above. Bibasilar atelectasis and/or infiltrates with bilateral effusions..
--- NOTE | 2018-11-10 13:55 | PN ---
DATE: 11/10/2018 SUBJECTIVE: The patient seen and examined. Interim events noted. Consults noted and appreciated. Case discussed with principal automation engineer. The patient remains in ICU on ventilator. Awake, responsive, not able to provide informative history or review of system, but does answer questions by nodding head. The patient feels okay, complains of discomfort of the ET tube but understands the need for it. No chest pain. No abdominal pain. PHYSICAL EXAMINATION: GENERAL: The patient is in no acute distress. VITAL SIGNS: Stable. HEART: S1 and S2 normal, regular. LUNGS: The patient has bilateral crepitations and transmitted sound. ABDOMEN: Soft, nontender. No organomegaly noted. Bowel sounds are present and normal. EXTREMITIES: No calf swelling. No tenderness. No acute ischemia. CENTRAL NERVOUS SYSTEM: Essentially unchanged. DIAGNOSTIC DATA: Available diagnostic data reviewed. Telemetry monitoring does not reveal significant arrhythmias. ASSESSMENT AND PLAN: Overall, the patient is medically stable, but critical. Plan as ordered. Nakul Zhang MD
[2018-11-10] MEDS ORDERED: Albuterol-Ipratrop 3 mg / 0.5 (3 ml) UD INH STA (14:20)
[2018-11-10] MEDS ORDERED: Propofol 10 mg/ml 1,000 MG/100 ML VIAL ONE (14:51)
--- NOTE | 2018-11-10 15:24 | PCM.ANES ---
Anesthesia Emergent Intubation - Diagnosis Working Diagnosis:: Respiratory Failure - Intubation Attempts Previous Number of Intubation Attempts:: 1 - Pre-Intubation Vital Signs Blood Pressure: 140/83 Heart Rate: 110 Respiratory Rate: 30 O2 Sat: 89 FIO2: 100 Oxygen Delivery Method: Ambu-Bag Level Of Consciousness: Lethargic - Airway Management Oropharyngeal Area Suctioned: Yes PreOxygenation: 100 (via ambu) Inhalation: Yes Rapid Sequence: No Cricoid Pressure: No Possible Aspiration: No - Method of Intubation Intubation Method: Oral ETT ETT Size: 7.0 Lipline@: 23 cm Easy: No Atramatic: Yes - Intubation Devices Charity Blade Size Used: 3 (not successful) [place] Scope Used: Yes - Placement Confirmation Breath Sounds Present & Equal Bilaterally: Yes Positive EtCO2: Yes Portable CXR: Yes Recommendations: Ventilator, Chest X Ray, ABG - Post-Intubation Vital Signs Blood Pressure: 189/82 Heart Rate: 95 Respiratory Rate: 20 O2 Sat: 95 FIO2: 40
--- NOTE | 2018-11-10 16:21 | CP.PCM.PN ---
Subjective - Date & Time of Evaluation Date of Evaluation: 11/10/18 Time of Evaluation: 16:17 - Subjective Subjective: off propofol and pressors more awake intubated Objective - Vital Signs/Intake and Output Vital Signs (last 24 hours): Temp Pulse Resp BP Pulse Ox 99.9 F H 93 H 14 121/71 98 11/10/18 16:00 11/10/18 16:00 11/10/18 16:00 11/10/18 16:00 11/10/18 16:00 Intake and Output: 11/10/18 11/10/18 06:59 18:59 Intake Total 1050 830 Output Total 1850 Balance 1050 -1020 - Medications Medications: Current Medications Acetaminophen (Tylenol 650mg/20.3ml Solution Ud) 650 mg NG Q6 PRN PRN Reason: fever: temp of > 100.4 F Last Admin: 11/10/18 04:42 Dose: 650 mg Acetazolamide (Diamox 250 Mg Tab) 250 mg PO BID [facility] Last Admin: 11/10/18 16:10 Dose: 250 mg Albuterol/Ipratropium (Duoneb 3 Mg/0.5 Mg (3 Ml) Ud) 3 ml INH RQ4 PRN PRN Reason: Shortness of Breath Last Admin: 11/10/18 13:51 Dose: 3 ml Carvedilol (Coreg) 3.125 mg PO Q12 [facility] Last Admin: 11/10/18 08:06 Dose: 3.125 mg Dextrose (Dextrose 50% Inj) 0 ml IV STAT PRN; Protocol PRN Reason: Hypoglycemia Protocol Dextrose (Glutose 15) 0 gm PO ONCE PRN; Protocol PRN Reason: Hypoglycemia Protocol Enoxaparin Sodium (Lovenox) 40 mg SC DAILY [facility]; Protocol Last Admin: 11/10/18 08:07 Dose: 40 mg Furosemide (Lasix) 40 mg IV DAILY [facility] Last Admin: 11/10/18 08:07 Dose: 40 mg Glucagon (Glucagen Diagnostic Kit) 0 mg IM STAT PRN; Protocol PRN Reason: Hypoglycemia Protocol Meropenem 1 gm/ Sodium (Chloride) 100 mls @ 100 mls/hr IVPB Q8 [facility]; Protocol Last Admin: 11/10/18 16:11 Dose: 100 mls/hr Vancomycin HCl 1 gm/ Sodium (Chloride) 250 mls @ 166.667 mls/hr IVPB Q12 [facility]; Protocol Last Admin: 11/10/18 08:09 Dose: 166.667 mls/hr Insulin Human Lispro (Humalog) 0 units SC Q6H [facility]; Protocol Last Admin: 11/10/18 11:21 Dose: Not Given Lactobacillus Acidophilus (Bacid Acidophilus) 1 cap PO BID [facility] Last Admin: 11/10/18 16:13 Dose: 1 cap Levothyroxine Sodium (Synthroid) 37.5 mcg IVP DAILY [facility] Last Admin: 11/10/18 08:08 Dose: 37.5 mcg Oseltamivir Phosphate (Tamiflu Susp) 75 mg PO BID [facility]; Protocol Last Admin: 11/10/18 16:11 Dose: 75 mg Pantoprazole Sodium (Protonix Ec Tab) 40 mg PO DAILY [facility] Last Admin: 11/10/18 08:08 Dose: 40 mg Potassium Chloride (K-Dur 20 Meq Er Tab) 20 meq PO DAILY [facility] Last Admin: 11/10/18 08:07 Dose: 20 meq - Labs Labs: 11/10/18 04:19 11/10/18 04:19 PT 11.8 Seconds (9.8-13.1) 11/05/18 21:00 INR 1.0 11/05/18 21:00 APTT 37.4 Seconds (25.6-37.1) H 11/05/18 21:00 - Constitutional Appears: Toxic, Chronically Ill - Head Exam Head Exam: ATRAUMATIC, NORMAL INSPECTION, NORMOCEPHALIC - Eye Exam Eye Exam: EOMI, Normal appearance, PERRL Pupil Exam: NORMAL ACCOMODATION, PERRL - ENT Exam ENT Exam: Mucous Membranes Moist, Normal Exam - Neck Exam Neck Exam: Full ROM, Normal Inspection. absent: Lymphadenopathy - Respiratory Exam Respiratory Exam: Rales, NORMAL BREATHING PATTERN Additional comments: intubated - Cardiovascular Exam Cardiovascular Exam: REGULAR RHYTHM, +S1, +S2. absent: Murmur - GI/Abdominal Exam GI & Abdominal Exam: Soft, Normal Bowel Sounds. absent: Tenderness - Extremities Exam Extremities Exam: Normal Capillary Refill, Normal Inspection. absent: Joint Swelling, Pedal Edema - Back Exam Back Exam: NORMAL INSPECTION - Neurological Exam Neurological Exam: Awake - Psychiatric Exam Psychiatric exam: Normal Mood - Skin Skin Exam: Dry, Intact, Normal Color, Warm Assessment and Plan (1) CHF (congestive heart failure) Assessment & Plan: diamox coreg lasix Status: Acute (2) Dehydration Status: Acute (3) Pneumonia Status: Acute (4) Respiratory failure Status: Acute (5) Severe sepsis Status: Acute (6) UTI (urinary tract infection) Status: Acute
[2018-11-10] MEDS ORDERED: Propofol 10 mg/ml 1,000 MG/100 ML VIAL IV SCH (16:30)
--- NOTE | 2018-11-10 17:41 | RAD ---
Date of service: 11/10/2018 HISTORY: Post intubation COMPARISON: None available. FINDINGS: In situ ETT, the tip of which lies approximately 2.84 cm above mamadou. In situ NGT, the tip of which a seen overlying the left parasagittal upper abdomen. No change right IJ central line. LUNGS: Mild bibasilar atelectasis and/or infiltrates with small bilateral effusions PLEURA: No significant pleural effusion identified, no pneumothorax apparent. CARDIOVASCULAR: Mild aortic atherosclerotic calcification present. . Cardiomegaly.. No pulmonary vascular congestion. OSSEOUS STRUCTURES: No significant abnormalities. VISUALIZED UPPER ABDOMEN: Normal. OTHER FINDINGS: None. IMPRESSION: Support lines and tubes as above. Mild bibasilar atelectasis and/or infiltrates with small bilateral effusions.
[2018-11-10 18:02] LABS: ABG ALLEN TEST YES; ARTERIAL BLOOD GAS HCO3 33.8 mmol/L (21-28); ARTERIAL BLOOD GAS O2 CAPACITY 15.1 mL/dL (16-24); ARTERIAL BLOOD GAS O2 CONTENT 14.6 ML/dL (15-23); ARTERIAL BLOOD GAS O2 SAT 96.9 % (95-98); ARTERIAL BLOOD GAS PCO2 52 mm/Hg (35-45); ARTERIAL BLOOD GAS PH 7.46 (7.35-7.45); ARTERIAL BLOOD GAS PO2 73 mm/Hg (80-100); ARTERIAL BLOOD GAS TCO2 38.6 mmol/L (22-28)
[2018-11-11] MEDS: Meropenem 1 GM in Sodium Chloride 0.9% 100 ML IVPB SCH ×3 (01:23→16:25)
[2018-11-11 05:14] LABS: HEMOGLOBIN 10.8 g/dL (12.0-16.0); MEAN CELL VOLUME 81.2 fl (81.0-99.0); MEAN CORPUSCULAR HEMOGLOBIN 25.6 pg (27.0-31.0); MEAN CORPUSCULAR HGB CONC 31.5 g/dL (33.0-37.0); RBC 4.21 Mil/uL (3.80-5.20); WHITE BLOOD COUNT 3.4 K/uL (4.8-10.8)
[2018-11-11 05:21] LABS: ABG ALLEN TEST YES; ARTERIAL BLOOD GAS HEMOGLOBIN 10.9 g/dL (11.7-17.4); ARTERIAL BLOOD GAS O2 CAPACITY 14.9 mL/dL (16-24); ARTERIAL BLOOD GAS O2 CONTENT 14.3 ML/dL (15-23); ARTERIAL BLOOD GAS O2 SAT 96.1 % (95-98); ARTERIAL BLOOD GAS PCO2 42 mm/Hg (35-45); ARTERIAL BLOOD GAS PH 7.52 (7.35-7.45); ARTERIAL BLOOD GAS PO2 66 mm/Hg (80-100); ARTERIAL BLOOD GAS TCO2 35.6 mmol/L (22-28)
[2018-11-11 05:23] LABS: ALB/GLOB RATIO 0.9 (1.0-2.1); ALBUMIN 2.8 g/dL (3.5-5.0); ALT/SGPT 25 U/L (9-52); AST/SGOT 20 U/L (14-36); BLOOD UREA NITROGEN 21 mg/dl (7-17); CALCIUM 8.4 mg/dL (8.4-10.2); GFR NON-AFRICAN AMERICAN > 60
[2018-11-11] MEDS: Insulin Lispro (humaLOG) 100 Units/ml Inj SC SCH ×4 (06:02→23:29)
[2018-11-11] MEDS ORDERED: Potassium Chloride 20 mEq ER Tab PO ONE (06:53)
[2018-11-11] MEDS ORDERED: Potassium Chloride 20 mEq/15 ml LIQ UD PO ONE (07:18)
--- NOTE | 2018-11-11 07:50 | CP.PCM.PN ---
<ShawanoSultan minal - Last Filed: 11/11/18 09:52> Subjective - Date & Time of Evaluation Date of Evaluation: 11/11/18 Time of Evaluation: 07:35 - Subjective Subjective: Patient seen and examined this morning during rounds with Dr. Zhang. Patient was briefly extubated yesterday but was re-intubated due to respiratory distress. Temperature trending down. Objective - Vital Signs/Intake and Output Vital Signs (last 24 hours): Temp Pulse Resp BP Pulse Ox 99.1 F 77 14 106/51 L 100 11/11/18 04:00 11/11/18 06:00 11/11/18 06:00 11/11/18 06:00 11/11/18 06:00 Intake and Output: 11/11/18 11/11/18 06:59 18:59 Intake Total 1115 Output Total 550 Balance 565 - Medications Medications: Current Medications Acetaminophen (Tylenol 650mg/20.3ml Solution Ud) 650 mg NG Q6 PRN PRN Reason: fever: temp of > 100.4 F Last Admin: 11/10/18 04:42 Dose: 650 mg Acetazolamide (Diamox 250 Mg Tab) 250 mg PO BID [facility] Last Admin: 11/10/18 16:10 Dose: 250 mg Albuterol/Ipratropium (Duoneb 3 Mg/0.5 Mg (3 Ml) Ud) 3 ml INH RQ4 PRN PRN Reason: Shortness of Breath Last Admin: 11/10/18 13:51 Dose: 3 ml Carvedilol (Coreg) 3.125 mg PO Q12 [facility] Last Admin: 11/10/18 20:18 Dose: 3.125 mg Dextrose (Dextrose 50% Inj) 0 ml IV STAT PRN; Protocol PRN Reason: Hypoglycemia Protocol Dextrose (Glutose 15) 0 gm PO ONCE PRN; Protocol PRN Reason: Hypoglycemia Protocol Enoxaparin Sodium (Lovenox) 40 mg SC DAILY [facility]; Protocol Last Admin: 11/10/18 08:07 Dose: 40 mg Furosemide (Lasix) 40 mg IV DAILY [facility] Last Admin: 11/10/18 08:07 Dose: 40 mg Glucagon (Glucagen Diagnostic Kit) 0 mg IM STAT PRN; Protocol PRN Reason: Hypoglycemia Protocol Meropenem 1 gm/ Sodium (Chloride) 100 mls @ 100 mls/hr IVPB Q8 [facility]; Protocol Last Admin: 11/11/18 01:23 Dose: 100 mls/hr Vancomycin HCl 1 gm/ Sodium (Chloride) 250 mls @ 166.667 mls/hr IVPB Q12 [facility]; Protocol Last Admin: 11/10/18 20:14 Dose: 166.667 mls/hr Propofol (Diprivan) 1,000 mg in 100 mls @ 3.047 mls/hr IV .Q24H [facility]; Protocol Stop: 11/11/18 16:28 Last Titration: 11/11/18 01:29 Dose: 15 mcg/kg/min, 9.14 mls/hr Insulin Human Lispro (Humalog) 0 units SC Q6H [facility]; Protocol Last Admin: 11/11/18 06:02 Dose: Not Given Lactobacillus Acidophilus (Bacid Acidophilus) 1 cap PO BID [facility] Last Admin: 11/10/18 16:13 Dose: 1 cap Levothyroxine Sodium (Synthroid) 37.5 mcg IVP DAILY [facility] Last Admin: 11/10/18 08:08 Dose: 37.5 mcg Oseltamivir Phosphate (Tamiflu Susp) 75 mg PO BID [facility]; Protocol Last Admin: 11/10/18 16:11 Dose: 75 mg Pantoprazole Sodium (Protonix Ec Tab) 40 mg PO DAILY [facility] Last Admin: 11/10/18 08:08 Dose: 40 mg Potassium Chloride (K-Dur 20 Meq Er Tab) 20 meq PO DAILY [facility] Last Admin: 11/10/18 08:07 Dose: 20 meq - Labs Labs: 11/11/18 04:25 11/11/18 04:25 PT 11.8 Seconds (9.8-13.1) 11/05/18 21:00 INR 1.0 11/05/18 21:00 APTT 37.4 Seconds (25.6-37.1) H 11/05/18 21:00 - Constitutional Appears: Chronically Ill, Other (Intubated) - Head Exam Head Exam: NORMAL INSPECTION - Respiratory Exam Additional comments: s/p intubation and on ventilation - Cardiovascular Exam Cardiovascular Exam: REGULAR RHYTHM, +S1, +S2 - GI/Abdominal Exam GI & Abdominal Exam: Soft, Normal Bowel Sounds. absent: Tenderness - Extremities Exam Extremities Exam: Normal Inspection. absent: Calf Tenderness - Skin Skin Exam: Dry, Warm Assessment and Plan - Assessment and Plan (Free Text) Assessment: 82 yo F with hx HTN, CHF, DM, hypothyroidism, pacemaker, admitted due to respiratory failure after being sent from [facility]. Patient was extubated briefly yesterday but reintubated due to respiratory distress. Plan: -Water Quality Assistant consult, input, management appreciated -Pulmonary consult, Dr. Reeves. Recommendation appreciated. -CHF, pacemaker - cardio consult - Dr. Kim. Recs appreciated. -ID consult, Dr. Chiu, recs appreciated. -Presumed tx for hospital acquired infections -c/w Vancomycin and Meropenem -c/w Tamiflu -Hypokalemia , K 3.3 this AM. s/p 60 meq kcl, f/u am labs -blood cx no growth after 5 days -Urine cx: E coli. sensitive to meropenem. -Insulin coverage scale and hypoglucemia protocol -Resume home meds -Prophylaxis: Pantoprazole and Lovenox -Rest of the plan as ordered. Patient seen, examined and plan d/w Dr. Leatha Medel, pgy-2 <Nakul Zhang K - Last Filed: 11/13/18 13:27> Objective - Vital Signs/Intake and Output Vital Signs (last 24 hours): Temp Pulse Resp BP Pulse Ox 98.5 F 98 H 17 124/63 98 11/13/18 12:00 11/13/18 12:00 11/13/18 12:00 11/13/18 12:00 11/13/18 12:00 Intake and Output: 11/13/18 11/13/18 11:59 23:59 Intake Total 450 Balance 450 - Medications Medications: Current Medications Acetaminophen (Tylenol 650mg/20.3ml Solution Ud) 650 mg NG Q6 PRN PRN Reason: fever: temp of > 100.4 F Last Admin: 11/11/18 20:16 Dose: 650 mg Albuterol/Ipratropium (Duoneb 3 Mg/0.5 Mg (3 Ml) Ud) 3 ml INH Q6H [facility] Last Admin: 11/13/18 07:59 Dose: 3 ml Carvedilol (Coreg) 3.125 mg PO Q12 [facility] Last Admin: 11/13/18 08:55 Dose: Not Given Dextrose (Dextrose 50% Inj) 0 ml IV STAT PRN; Protocol PRN Reason: Hypoglycemia Protocol Dextrose (Glutose 15) 0 gm PO ONCE PRN; Protocol PRN Reason: Hypoglycemia Protocol Furosemide (Lasix) 40 mg IV DAILY [facility] Last Admin: 11/13/18 08:55 Dose: 40 mg Glucagon (Glucagen Diagnostic Kit) 0 mg IM STAT PRN; Protocol PRN Reason: Hypoglycemia Protocol Meropenem 1 gm/ Sodium (Chloride) 100 mls @ 100 mls/hr IVPB Q8 [facility]; Protocol Last Admin: 11/13/18 08:54 Dose: 100 mls/hr Vancomycin HCl 500 mg/ Sodium (Chloride) 100 mls @ 100 mls/hr IVPB Q12H [facility]; Protocol Insulin Human Lispro (Humalog) 0 units SC Q6H [facility]; Protocol Last Admin: 11/13/18 12:24 Dose: Not Given Lactobacillus Acidophilus (Bacid Acidophilus) 1 cap PO BID [facility] Last Admin: 11/13/18 08:55 Dose: Not Given Levothyroxine Sodium (Synthroid) 37.5 mcg IVP DAILY [facility] Last Admin: 11/13/18 08:54 Dose: 37.5 mcg Oseltamivir Phosphate (Tamiflu Susp) 75 mg PO BID [facility]; Protocol Last Admin: 11/13/18 08:56 Dose: Not Given Pantoprazole Sodium (Protonix Ec Tab) 40 mg PO DAILY [facility] Last Admin: 11/13/18 08:56 Dose: Not Given Potassium Chloride (K-Dur 20 Meq Er Tab) 20 meq PO DAILY [facility] Last Admin: 11/13/18 08:55 Dose: Not Given - Labs Labs: 11/13/18 04:30 11/13/18 08:21 PT 11.8 Seconds (9.8-13.1) 11/05/18 21:00 INR 1.0 11/05/18 21:00 APTT 37.4 Seconds (25.6-37.1) H 11/05/18 21:00 Assessment and Plan - Assessment and Plan (Free Text) Assessment: Patient was personally seen and examined by me in rounds with residents. Available labs and diagnostic data reviewed. Case, Patient's condition and management plan discussed with residents in rounds. Agree with resident's progress note. Plan: As ordered.
[2018-11-11] MEDS ORDERED: Dexmedetomidine Hydrochloride 400 MCG in Sodium Chloride 0.9% 96 ML IV ONE (07:53)
[2018-11-11] MEDS: Albuterol-Ipratrop 3 mg / 0.5 (3 ml) UD INH SCH ×3 (08:08→19:01)
--- NOTE | 2018-11-11 08:32 | CP.PCM.PN ---
Subjective - Date & Time of Evaluation Date of Evaluation: 11/11/18 Time of Evaluation: 08:33 - Subjective Subjective: EXTUBATED THEN RE-INTUBATED SEDATED O2 SAT ADEQUATE Objective - Vital Signs/Intake and Output Vital Signs (last 24 hours): Temp Pulse Resp BP Pulse Ox 99.1 F 77 14 106/51 L 100 11/11/18 04:00 11/11/18 06:00 11/11/18 06:00 11/11/18 06:00 11/11/18 06:00 Intake and Output: 11/11/18 11/11/18 06:59 18:59 Intake Total 1115 Output Total 550 Balance 565 - Medications Medications: Current Medications Acetaminophen (Tylenol 650mg/20.3ml Solution Ud) 650 mg NG Q6 PRN PRN Reason: fever: temp of > 100.4 F Last Admin: 11/10/18 04:42 Dose: 650 mg Acetazolamide (Diamox 250 Mg Tab) 250 mg PO BID [facility] Last Admin: 11/10/18 16:10 Dose: 250 mg Albuterol/Ipratropium (Duoneb 3 Mg/0.5 Mg (3 Ml) Ud) 3 ml INH RQ4 PRN PRN Reason: Shortness of Breath Last Admin: 11/10/18 13:51 Dose: 3 ml Albuterol/Ipratropium (Duoneb 3 Mg/0.5 Mg (3 Ml) Ud) 3 ml INH Q6H [facility] Last Admin: 11/11/18 08:08 Dose: 3 ml Carvedilol (Coreg) 3.125 mg PO Q12 [facility] Last Admin: 11/10/18 20:18 Dose: 3.125 mg Dextrose (Dextrose 50% Inj) 0 ml IV STAT PRN; Protocol PRN Reason: Hypoglycemia Protocol Dextrose (Glutose 15) 0 gm PO ONCE PRN; Protocol PRN Reason: Hypoglycemia Protocol Enoxaparin Sodium (Lovenox) 40 mg SC DAILY [facility]; Protocol Last Admin: 11/10/18 08:07 Dose: 40 mg Furosemide (Lasix) 40 mg IV DAILY [facility] Last Admin: 11/10/18 08:07 Dose: 40 mg Glucagon (Glucagen Diagnostic Kit) 0 mg IM STAT PRN; Protocol PRN Reason: Hypoglycemia Protocol Meropenem 1 gm/ Sodium (Chloride) 100 mls @ 100 mls/hr IVPB Q8 [facility]; Protocol Last Admin: 11/11/18 01:23 Dose: 100 mls/hr Vancomycin HCl 1 gm/ Sodium (Chloride) 250 mls @ 166.667 mls/hr IVPB Q12 [facility]; Protocol Last Admin: 11/10/18 20:14 Dose: 166.667 mls/hr Dexmedetomidine HCl 400 mcg/ (Sodium Chloride) 100 mls @ 5.06 mls/hr IV .[id number] [facility]; Protocol Stop: 11/12/18 03:38 Insulin Human Lispro (Humalog) 0 units SC Q6H [facility]; Protocol Last Admin: 11/11/18 06:02 Dose: Not Given Lactobacillus Acidophilus (Bacid Acidophilus) 1 cap PO BID [facility] Last Admin: 11/10/18 16:13 Dose: 1 cap Levothyroxine Sodium (Synthroid) 37.5 mcg IVP DAILY [facility] Last Admin: 11/10/18 08:08 Dose: 37.5 mcg Oseltamivir Phosphate (Tamiflu Susp) 75 mg PO BID [facility]; Protocol Last Admin: 11/10/18 16:11 Dose: 75 mg Pantoprazole Sodium (Protonix Ec Tab) 40 mg PO DAILY [facility] Last Admin: 11/10/18 08:08 Dose: 40 mg Potassium Chloride (K-Dur 20 Meq Er Tab) 20 meq PO DAILY [facility] Last Admin: 11/10/18 08:07 Dose: 20 meq - Labs Labs: 11/11/18 04:25 11/11/18 04:25 PT 11.8 Seconds (9.8-13.1) 11/05/18 21:00 INR 1.0 11/05/18 21:00 APTT 37.4 Seconds (25.6-37.1) H 11/05/18 21:00 - Constitutional Appears: Chronically Ill - Head Exam Head Exam: ATRAUMATIC, NORMAL INSPECTION, NORMOCEPHALIC - Eye Exam Eye Exam: EOMI, Normal appearance, PERRL Pupil Exam: NORMAL ACCOMODATION, PERRL - ENT Exam ENT Exam: Mucous Membranes Moist, Normal Exam - Neck Exam Neck Exam: Full ROM, Normal Inspection. absent: Lymphadenopathy - Respiratory Exam Respiratory Exam: Rales Additional comments: INTUBATED AND BEING VENTILATED - Cardiovascular Exam Cardiovascular Exam: REGULAR RHYTHM, +S1, +S2. absent: Murmur - GI/Abdominal Exam GI & Abdominal Exam: Soft, Normal Bowel Sounds. absent: Tenderness - Rectal Exam Rectal Exam: NORMAL INSPECTION - Extremities Exam Extremities Exam: Full ROM, Normal Capillary Refill, Normal Inspection. absent: Joint Swelling, Pedal Edema - Back Exam Back Exam: NORMAL INSPECTION - Neurological Exam Neurological Exam: Alert, Awake, CN II-XII Intact, Normal Gait, Oriented x3 - Skin Skin Exam: Dry, Intact, Normal Color, Warm Assessment and Plan - Assessment and Plan (Free Text) Assessment: ACUTE RESP FAILURE PNEUMONIA CHF Plan: CONTINUE CURRENT RX CONTINUE ATTEMPTS TO EXTUBATE
[2018-11-11] MEDS: Lactobacillus Acidophilus 500 MU Cap PO SCH ×2 (09:34→16:27)
[2018-11-11] MEDS: Potassium Chloride 20 mEq ER Tab PO SCH (09:36)
[2018-11-11] MEDS: Enoxaparin 40 mg Syringe SC SCH (09:38)
[2018-11-11] MEDS: Pantoprazole 40 mg EC Tab PO SCH (09:39)
[2018-11-11] MEDS: Levothyroxine 100 mcg (0.1 mg) Inj IVP SCH (09:39)
[2018-11-11] MEDS: Oseltamivir 6 MG/ML PO SCH ×2 (09:57→16:28)
--- NOTE | 2018-11-11 11:42 | RAD ---
Date of service: 11/11/2018 HISTORY: ETT placement COMPARISON: 11/10/2018. FINDINGS: Endotracheal tube terminates 1.5 cm proximal to the mamadou. The right IJV line terminates at the cavoatrial junction the nasogastric tube terminates in the stomach. LUNGS: There are low lung volumes. There is moderate pulmonary venous congestion. PLEURA: Small pleural effusions. No pneumothorax. CARDIOVASCULAR: Persistent mild cardiomegaly and prominent central vasculature. There are aortic atherosclerotic calcifications present. There is stable position of left-sided permanent pacing device with OSSEOUS STRUCTURES: Within normal limits for the patient's age. VISUALIZED UPPER ABDOMEN: Normal. OTHER FINDINGS: None. IMPRESSION: Low lung volumes, moderate pulmonary venous congestion and small effusions.
--- NOTE | 2018-11-11 13:01 | CP.CCUPN ---
CCU Subjective - Physician Review Subjective (Free Text): Patient remains intubated, limited ROS 11/11/18 12:23 Critical Care Time Spent (in minutes): 48 CCU Objective - Vital Signs / Intake & Output Vital Signs (Last 4 hours): Vital Signs Pulse BP 11/11/18 09:38 124/60 11/11/18 09:35 74 124/60 Intake and Output (Last 8hrs): Intake & Output 11/10/18 11/11/18 11/11/18 22:59 06:59 14:59 Intake Total 650 605 18 Output Total 1051 550 Balance -401 55 18 Weight 223 lb 4.8 oz Intake: IV 0 85 Intake, Piggyback 350 100 18 Tube Feeding 200 320 Free Water Flush 100 100 Output: Urine 1050 550 Urethral (Arias) 1050 550 Stool 1 - Physical Exam Head: Positive for: Atraumatic Pupils: Positive for: PERRL. Negative for: Non-Reactive, Pinpoint Extroacular Muscles: Positive for: EOMI. Negative for: Gaze Palsy Conjunctiva: Positive for: Normal. Negative for: Injected, Icteric Mouth: Positive for: Moist Mucous Membranes Pharnyx: Positive for: Normal Nose (Internal): Positive for: Normal Inspection Respiratory/Chest: Positive for: Decreased Breath Sounds (in the lower lobes b/l ), Other (course breath sounds, crackles in the R>L ). Negative for: Clear to Auscultation Cardiovascular: Positive for: Regular Rate and Rhythm, Normal S1, S2, Peripheal Pulses Present. Negative for: Murmurs, Irregular Rhythm, Tachycardic, Bradycardic Abdomen: Positive for: Other (obese ). Negative for: Tenderness, Guarding Genitourinary/Pelvic Exam: Positive for: Other (Arias draining yellow urine ) Upper Extremity: Positive for: Edema, Other (moving b/l upper ext when stimulated. Mild edema of the hands b/l ) Lower Extremity: Positive for: Other (mild edema, scds on, moving both ext ) Psychiatric: Positive for: Alert - Medications Active Medications: Active Medications Generic Name Dose Route Start Last Admin Trade Name Freq PRN Reason Stop Dose Admin Acetaminophen 650 mg 11/09/18 14:15 11/10/18 04:42 Tylenol 650mg/20.3ml Solution Ud NG 650 mg Q6 PRN Administration fever: temp of > 100.4 F Acetazolamide 250 mg 11/08/18 09:00 11/11/18 09:36 Diamox 250 Mg Tab PO 250 mg BID BRODY Administration Albuterol/Ipratropium 3 ml 11/09/18 08:29 11/10/18 13:51 Duoneb 3 Mg/0.5 Mg (3 Ml) Ud INH 3 ml RQ4 PRN Administration Shortness of Breath Albuterol/Ipratropium 3 ml 11/11/18 08:00 11/11/18 08:08 Duoneb 3 Mg/0.5 Mg (3 Ml) Ud INH 3 ml Q6H BRODY Administration Carvedilol 3.125 mg 11/06/18 09:00 11/11/18 09:35 Coreg PO 3.125 mg Q12 BRODY Administration Dextrose 0 ml 11/06/18 08:46 Dextrose 50% Inj IV STAT PRN Hypoglycemia Protocol Protocol Dextrose 0 gm 11/06/18 08:46 Glutose 15 PO ONCE PRN Hypoglycemia Protocol Protocol Enoxaparin Sodium 40 mg 11/09/18 15:45 11/11/18 09:38 Lovenox SC 40 mg DAILY BRODY Administration Protocol Furosemide 40 mg 11/09/18 15:45 11/11/18 09:38 Lasix IV 40 mg DAILY BRODY Administration Glucagon 0 mg 11/06/18 08:46 Glucagen Diagnostic Kit IM STAT PRN Hypoglycemia Protocol Protocol Meropenem 1 gm/ Sodium 100 mls @ 100 mls/hr 11/09/18 17:00 11/11/18 09:28 Chloride IVPB 100 mls/hr Q8 BRODY Administration Protocol Vancomycin HCl 1 gm/ Sodium 250 mls @ 166.667 mls/hr 11/09/18 21:00 11/11/18 09:41 Chloride IVPB 166.667 mls/hr Q12 BRODY Administration Protocol Dexmedetomidine HCl 400 mcg/ 100 mls @ 5.06 mls/hr 11/11/18 07:53 11/11/18 09:27 Sodium Chloride IV 11/12/18 03:38 0.2 mcg/kg/hr .[id number] ONE 5.06 mls/hr Administration Protocol 0.2 MCG/KG/HR Insulin Human Lispro 0 units 11/06/18 00:15 11/11/18 06:02 Humalog SC Not Given Q6H BRODY Protocol Lactobacillus Acidophilus 1 cap 11/06/18 17:00 11/11/18 09:34 Bacid Acidophilus PO 1 cap BID BRODY Administration Levothyroxine Sodium 37.5 mcg 11/07/18 09:00 11/11/18 09:39 Synthroid IVP 37.5 mcg DAILY BRODY Administration Oseltamivir Phosphate 75 mg 11/09/18 17:00 11/11/18 09:57 Tamiflu Susp PO 75 mg BID BRODY Administration Protocol Pantoprazole Sodium 40 mg 11/06/18 09:00 11/11/18 09:39 Protonix Ec Tab PO 40 mg DAILY BRODY Administration Potassium Chloride 20 meq 11/07/18 09:00 11/11/18 09:36 K-Dur 20 Meq Er Tab PO 20 meq DAILY BRODY Administration - Patient Studies Lab Studies: Microbiology Studies 11/09/18 09:14 Blood Culture - Preliminary Blood-Venous NO GROWTH AFTER 48 HOURS 11/05/18 23:15 Blood Culture - Final Blood NO GROWTH AFTER 5 DAYS Gram Stain - Final TEST NOT PERFORMED 11/05/18 21:00 Blood Culture - Final Blood NO GROWTH AFTER 5 DAYS Gram Stain - Final TEST NOT PERFORMED Lab Studies 11/11/18 11/11/18 11/11/18 Range/Units 08:08 05:14 04:37 WBC (4.8-10.8) K/uL RBC (3.80-5.20) Mil/uL Hgb (12.0-16.0) g/dL Hct (34.0-47.0) % MCV (81.0-99.0) fl MCH (27.0-31.0) pg MCHC (33.0-37.0) g/dL RDW (11.5-14.5) % Plt Count (130-400) K/uL pCO2 42 (35-45) mm/Hg pO2 66 L (80-100) mm/Hg HCO3 33.0 H (21-28) mmol/L ABG pH 7.52 H (7.35-7.45) ABG Total CO2 35.6 H (22-28) mmol/L ABG O2 Saturation 96.1 (95-98) % ABG O2 Content 14.3 L (15-23) ML/dL ABG Base Excess 10.4 H (-2.0-3.0) mmol/L ABG Hemoglobin 10.9 L (11.7-17.4) g/dL ABG Carboxyhemoglobin 1.8 H (0.5-1.5) % POC ABG HHb (Measured) 3.8 (0.0-5.0) % ABG Methemoglobin 1.1 (0.0-3.0) % ABG O2 Capacity 14.9 L (16-24) mL/dL Favian Test Yes A-a O2 Difference 167.0 mm/Hg Hgb O2 Saturation 93.2 L (95.0-98.0) % Vent Mode A/c Mechanical Rate 14 FiO2 40.0 % Tidal Volume 500 PEEP 5 Sodium (132-148) mmol/l Potassium (3.6-5.0) MMOL/L Chloride (98-107) mmol/L Carbon Dioxide (22-30) mmol/L Anion Gap (10-20) BUN (7-17) mg/dl Creatinine (0.7-1.2) mg/dl Est GFR ( Amer) Est GFR (Non-Af Amer) POC Glucose (mg/dL) 137 H (65-110) mg/dL Random Glucose (65-105) mg/dL Calcium (8.4-10.2) mg/dL Phosphorus (2.5-4.5) mg/dl Magnesium (1.6-2.3) MG/DL Total Bilirubin (0.2-1.3) mg/dl AST (14-36) U/L ALT (9-52) U/L Alkaline Phosphatase (38-126) U/L Total Protein (6.3-8.2) G/DL Albumin (3.5-5.0) g/dL Globulin (2.2-3.9) gm/dL Albumin/Globulin Ratio (1.0-2.1) Vancomycin Trough 15.2 H (5.0-10.0) ug/mL 11/11/18 11/11/18 11/10/18 Range/Units 04:25 04:25 23:37 WBC 3.4 L (4.8-10.8) K/uL RBC 4.21 (3.80-5.20) Mil/uL Hgb 10.8 L (12.0-16.0) g/dL Hct 34.2 (34.0-47.0) % MCV 81.2 (81.0-99.0) fl MCH 25.6 L (27.0-31.0) pg MCHC 31.5 L (33.0-37.0) g/dL RDW 20.0 H (11.5-14.5) % Plt Count 143 (130-400) K/uL pCO2 (35-45) mm/Hg pO2 (80-100) mm/Hg HCO3 (21-28) mmol/L ABG pH (7.35-7.45) ABG Total CO2 (22-28) mmol/L ABG O2 Saturation (95-98) % ABG O2 Content (15-23) ML/dL ABG Base Excess (-2.0-3.0) mmol/L ABG Hemoglobin (11.7-17.4) g/dL ABG Carboxyhemoglobin (0.5-1.5) % POC ABG HHb (Measured) (0.0-5.0) % ABG Methemoglobin (0.0-3.0) % ABG O2 Capacity (16-24) mL/dL Favian Test A-a O2 Difference mm/Hg Hgb O2 Saturation (95.0-98.0) % Vent Mode Mechanical Rate FiO2 % Tidal Volume PEEP Sodium 136 (132-148) mmol/l Potassium 3.3 L (3.6-5.0) MMOL/L Chloride 97 L (98-107) mmol/L Carbon Dioxide 34 H (22-30) mmol/L Anion Gap 8 L (10-20) BUN 21 H (7-17) mg/dl Creatinine 0.8 (0.7-1.2) mg/dl Est GFR ( Amer) > 60 Est GFR (Non-Af Amer) > 60 POC Glucose (mg/dL) 99 (65-110) mg/dL Random Glucose 144 H (65-105) mg/dL Calcium 8.4 (8.4-10.2) mg/dL Phosphorus 2.7 (2.5-4.5) mg/dl Magnesium 1.9 (1.6-2.3) MG/DL Total Bilirubin 0.5 (0.2-1.3) mg/dl AST 20 (14-36) U/L ALT 25 (9-52) U/L Alkaline Phosphatase 83 (38-126) U/L Total Protein 5.8 L (6.3-8.2) G/DL Albumin 2.8 L (3.5-5.0) g/dL Globulin 3.1 (2.2-3.9) gm/dL Albumin/Globulin Ratio 0.9 L (1.0-2.1) Vancomycin Trough (5.0-10.0) ug/mL 11/10/18 11/10/18 Range/Units 17:55 17:18 WBC (4.8-10.8) K/uL RBC (3.80-5.20) Mil/uL Hgb (12.0-16.0) g/dL Hct (34.0-47.0) % MCV (81.0-99.0) fl MCH (27.0-31.0) pg MCHC (33.0-37.0) g/dL RDW (11.5-14.5) % Plt Count (130-400) K/uL pCO2 52 H (35-45) mm/Hg pO2 73 L (80-100) mm/Hg HCO3 33.8 H (21-28) mmol/L ABG pH 7.46 H (7.35-7.45) ABG Total CO2 38.6 H (22-28) mmol/L ABG O2 Saturation 96.9 (95-98) % ABG O2 Content 14.6 L (15-23) ML/dL ABG Base Excess 11.5 H (-2.0-3.0) mmol/L ABG Hemoglobin 11.0 L (11.7-17.4) g/dL ABG Carboxyhemoglobin 1.9 H (0.5-1.5) % POC ABG HHb (Measured) 3.0 (0.0-5.0) % ABG Methemoglobin 1.4 (0.0-3.0) % ABG O2 Capacity 15.1 L (16-24) mL/dL Favian Test Yes A-a O2 Difference 147.0 mm/Hg Hgb O2 Saturation 93.8 L (95.0-98.0) % Vent Mode Prvc/ac Mechanical Rate 12 FiO2 40.0 % Tidal Volume 500 PEEP 5 Sodium (132-148) mmol/l Potassium (3.6-5.0) MMOL/L Chloride (98-107) mmol/L Carbon Dioxide (22-30) mmol/L Anion Gap (10-20) BUN (7-17) mg/dl Creatinine (0.7-1.2) mg/dl Est GFR ( Amer) Est GFR (Non-Af Amer) POC Glucose (mg/dL) 166 H (65-110) mg/dL Random Glucose (65-105) mg/dL Calcium (8.4-10.2) mg/dL Phosphorus (2.5-4.5) mg/dl Magnesium (1.6-2.3) MG/DL Total Bilirubin (0.2-1.3) mg/dl AST (14-36) U/L ALT (9-52) U/L Alkaline Phosphatase (38-126) U/L Total Protein (6.3-8.2) G/DL Albumin (3.5-5.0) g/dL Globulin (2.2-3.9) gm/dL Albumin/Globulin Ratio (1.0-2.1) Vancomycin Trough (5.0-10.0) ug/mL Laboratory Results - last 24 hr 11/10/18 11/10/18 11/10/18 17:18 17:55 23:37 WBC RBC Hgb Hct MCV MCH MCHC RDW Plt Count pCO2 52 H pO2 73 L HCO3 33.8 H ABG pH 7.46 H ABG Total CO2 38.6 H ABG O2 Saturation 96.9 ABG O2 Content 14.6 L ABG Base Excess 11.5 H ABG Hemoglobin 11.0 L ABG Carboxyhemoglobin 1.9 H POC ABG HHb (Measured) 3.0 ABG Methemoglobin 1.4 ABG O2 Capacity 15.1 L Favian Test Yes A-a O2 Difference 147.0 Hgb O2 Saturation 93.8 L Vent Mode Prvc/ac Mechanical Rate 12 FiO2 40.0 Tidal Volume 500 PEEP 5 Sodium Potassium Chloride Carbon Dioxide Anion Gap BUN Creatinine Est GFR ( Amer) Est GFR (Non-Af Amer) POC Glucose (mg/dL) 166 H 99 Random Glucose Calcium Phosphorus Magnesium Total Bilirubin AST ALT Alkaline Phosphatase Total Protein Albumin Globulin Albumin/Globulin Ratio Vancomycin Trough 11/11/18 11/11/18 11/11/18 04:25 04:25 04:37 WBC 3.4 L RBC 4.21 Hgb 10.8 L Hct 34.2 MCV 81.2 MCH 25.6 L MCHC 31.5 L RDW 20.0 H Plt Count 143 pCO2 pO2 HCO3 ABG pH ABG Total CO2 ABG O2 Saturation ABG O2 Content ABG Base Excess ABG Hemoglobin ABG Carboxyhemoglobin POC ABG HHb (Measured) ABG Methemoglobin ABG O2 Capacity Favian Test A-a O2 Difference Hgb O2 Saturation Vent Mode Mechanical Rate FiO2 Tidal Volume PEEP Sodium 136 Potassium 3.3 L Chloride 97 L Carbon Dioxide 34 H Anion Gap 8 L BUN 21 H Creatinine 0.8 Est GFR ( Amer) > 60 Est GFR (Non-Af Amer) > 60 POC Glucose (mg/dL) 137 H Random Glucose 144 H Calcium 8.4 Phosphorus 2.7 Magnesium 1.9 Total Bilirubin 0.5 AST 20 ALT 25 Alkaline Phosphatase 83 Total Protein 5.8 L Albumin 2.8 L Globulin 3.1 Albumin/Globulin Ratio 0.9 L Vancomycin Trough 11/11/18 11/11/18 05:14 08:08 WBC RBC Hgb Hct MCV MCH MCHC RDW Plt Count pCO2 42 pO2 66 L HCO3 33.0 H ABG pH 7.52 H ABG Total CO2 35.6 H ABG O2 Saturation 96.1 ABG O2 Content 14.3 L ABG Base Excess 10.4 H ABG Hemoglobin 10.9 L ABG Carboxyhemoglobin 1.8 H POC ABG HHb (Measured) 3.8 ABG Methemoglobin 1.1 ABG O2 Capacity 14.9 L Favian Test Yes A-a O2 Difference 167.0 Hgb O2 Saturation 93.2 L Vent Mode A/c Mechanical Rate 14 FiO2 40.0 Tidal Volume 500 PEEP 5 Sodium Potassium Chloride Carbon Dioxide Anion Gap BUN Creatinine Est GFR ( Amer) Est GFR (Non-Af Amer) POC Glucose (mg/dL) Random Glucose Calcium Phosphorus Magnesium Total Bilirubin AST ALT Alkaline Phosphatase Total Protein Albumin Globulin Albumin/Globulin Ratio Vancomycin Trough 15.2 H Radiology Impressions: Radiology Impressions Chest X-Ray 11/10/18 06:00 IMPRESSION: Support lines and tubes as above. Bibasilar atelectasis and/or infiltrates with bilateral effusions.. Chest X-Ray 11/10/18 15:15 IMPRESSION: Support lines and tubes as above. Mild bibasilar atelectasis and/or infiltrates with small bilateral effusions. Chest X-Ray 11/11/18 06:00 IMPRESSION: Low lung volumes, moderate pulmonary venous congestion and small effusions. Fingerstick Blood Sugar Results: 137 Review of Systems - Review of Systems Systems not reviewed;Unavailable: Intubated Assessment/Plan - Assessment and Plan (Free Text) Assessment: Hypoxic respiratory failure: continue ventilation, CPAP trials daily, continue bronchodialtors, q6 brody -Chronic diastolic heart failure:continue negative balance, avoid acetazolaminde as it can raise pCo2 and lead to Co2 narcosis, continue with loop diuretics -empriically on ABX, obtain sputum culture -continue ng tube feeds -continue dvt/pud ppx cc time 48 minutes Patient tolerating CPAP, patient failed extubation previously will attempt to optimize lung function before repeat extubation attempt. - Date & Time Date: 11/11/18 Time: 12:24
--- NOTE | 2018-11-11 13:02 | CP.PCM.PN ---
Subjective - Date & Time of Evaluation Date of Evaluation: 11/11/18 Time of Evaluation: 08:00 - Subjective Subjective: less fever lethargic on vent NAD Objective - Vital Signs/Intake and Output Vital Signs (last 24 hours): Temp Pulse Resp BP Pulse Ox 99.4 F 74 14 124/60 99 11/11/18 08:00 11/11/18 09:35 11/11/18 08:00 11/11/18 09:38 11/11/18 08:00 Intake and Output: 11/11/18 11/11/18 06:59 18:59 Intake Total 1115 18 Output Total 550 Balance 565 18 - Medications Medications: Current Medications Acetaminophen (Tylenol 650mg/20.3ml Solution Ud) 650 mg NG Q6 PRN PRN Reason: fever: temp of > 100.4 F Last Admin: 11/10/18 04:42 Dose: 650 mg Albuterol/Ipratropium (Duoneb 3 Mg/0.5 Mg (3 Ml) Ud) 3 ml INH RQ4 PRN PRN Reason: Shortness of Breath Last Admin: 11/10/18 13:51 Dose: 3 ml Albuterol/Ipratropium (Duoneb 3 Mg/0.5 Mg (3 Ml) Ud) 3 ml INH Q6H JEANA Last Admin: 11/11/18 08:08 Dose: 3 ml Carvedilol (Coreg) 3.125 mg PO Q12 JEANA Last Admin: 11/11/18 09:35 Dose: 3.125 mg Dextrose (Dextrose 50% Inj) 0 ml IV STAT PRN; Protocol PRN Reason: Hypoglycemia Protocol Dextrose (Glutose 15) 0 gm PO ONCE PRN; Protocol PRN Reason: Hypoglycemia Protocol Enoxaparin Sodium (Lovenox) 40 mg SC DAILY JEANA; Protocol Last Admin: 11/11/18 09:38 Dose: 40 mg Furosemide (Lasix) 40 mg IV DAILY JEANA Last Admin: 11/11/18 09:38 Dose: 40 mg Glucagon (Glucagen Diagnostic Kit) 0 mg IM STAT PRN; Protocol PRN Reason: Hypoglycemia Protocol Meropenem 1 gm/ Sodium (Chloride) 100 mls @ 100 mls/hr IVPB Q8 JEANA; Protocol Last Admin: 11/11/18 09:28 Dose: 100 mls/hr Vancomycin HCl 1 gm/ Sodium (Chloride) 250 mls @ 166.667 mls/hr IVPB Q12 JEANA; Protocol Last Admin: 11/11/18 09:41 Dose: 166.667 mls/hr Dexmedetomidine HCl 400 mcg/ (Sodium Chloride) 100 mls @ 5.06 mls/hr IV .Q19 H46M ONE; Protocol Stop: 11/12/18 03:38 Last Admin: 11/11/18 09:27 Dose: 0.2 mcg/kg/hr, 5.06 mls/hr Insulin Human Lispro (Humalog) 0 units SC Q6H JEANA; Protocol Last Admin: 11/11/18 06:02 Dose: Not Given Lactobacillus Acidophilus (Bacid Acidophilus) 1 cap PO BID JEANA Last Admin: 11/11/18 09:34 Dose: 1 cap Levothyroxine Sodium (Synthroid) 37.5 mcg IVP DAILY [facility] Last Admin: 11/11/18 09:39 Dose: 37.5 mcg Oseltamivir Phosphate (Tamiflu Susp) 75 mg PO BID [facility]; Protocol Last Admin: 11/11/18 09:57 Dose: 75 mg Pantoprazole Sodium (Protonix Ec Tab) 40 mg PO DAILY JEANA Last Admin: 11/11/18 09:39 Dose: 40 mg Potassium Chloride (K-Dur 20 Meq Er Tab) 20 meq PO DAILY JEANA Last Admin: 11/11/18 09:36 Dose: 20 meq - Labs Labs: 11/11/18 04:25 11/11/18 04:25 PT 11.8 Seconds (9.8-13.1) 11/05/18 21:00 INR 1.0 11/05/18 21:00 APTT 37.4 Seconds (25.6-37.1) H 11/05/18 21:00 - Constitutional Appears: Non-toxic, Chronically Ill - Head Exam Head Exam: NORMOCEPHALIC - Eye Exam Eye Exam: absent: Scleral icterus - ENT Exam ENT Exam: Mucous Membranes Dry - Neck Exam Neck Exam: absent: Lymphadenopathy - Respiratory Exam Respiratory Exam: Decreased Breath Sounds, Rhonchi - Cardiovascular Exam Cardiovascular Exam: REGULAR RHYTHM, +S1, +S2 - GI/Abdominal Exam GI & Abdominal Exam: Distended, Soft. absent: Tenderness - Rectal Exam Rectal Exam: Deferred - Exam Exam: NORMAL INSPECTION - Extremities Exam Extremities Exam: absent: Pedal Edema - Back Exam Back Exam: absent: CVA tenderness (L), CVA tenderness (R) - Neurological Exam Neurological Exam: Altered, CN II-XII Intact - Psychiatric Exam Psychiatric exam: Depressed - Skin Skin Exam: Dry Assessment and Plan (1) CHF (congestive heart failure) Status: Acute (2) Dehydration Status: Acute (3) Pneumonia Status: Acute (4) Respiratory failure Status: Acute (5) Sepsis Status: Acute (6) UTI (urinary tract infection) Status: Acute - Assessment and Plan (Free Text) Assessment: improving slowly all culturers neg would complete 7 days IV Rx ( empiric)
[2018-11-11] MEDS: Acetaminophen 650mg/20.3ml solution UD NG PRN (20:16)
[2018-11-12] MEDS ORDERED: Meropenem 1 GM in Sodium Chloride 0.9% 100 ML IVPB ONE (01:00)
[2018-11-12] MEDS: Meropenem 1 GM in Sodium Chloride 0.9% 100 ML IVPB SCH ×3 (01:00→16:25)
[2018-11-12] MEDS ORDERED: Insulin Lispro (humaLOG) 100 Units/ml Inj ONE (01:51)
[2018-11-12] MEDS: Albuterol-Ipratrop 3 mg / 0.5 (3 ml) UD INH SCH ×4 (02:10→19:14)
[2018-11-12] MEDS: Insulin Lispro (humaLOG) 100 Units/ml Inj SC SCH ×3 (05:35→17:56)
[2018-11-12 06:07] LABS: BASO % 0.4 % (0.0-2.0); EOS # 0.1 K/uL (0.0-0.7); EOS % 4.3 % (0.0-4.0); HEMOGLOBIN 11.3 g/dL (12.0-16.0); LYMPH # 1.2 K/uL (1.0-4.3); LYMPH % 35.7 % (20.0-40.0); MEAN CELL VOLUME 80.8 fl (81.0-99.0); MEAN CORPUSCULAR HEMOGLOBIN 25.7 pg (27.0-31.0); MEAN CORPUSCULAR HGB CONC 31.8 g/dL (33.0-37.0); MEAN PLATELET VOLUME 9.4 fl (7.2-11.7); MONO # 0.7 K/uL (0.0-0.8); MONO % 19.2 % (0.0-10.0); NEUT # 1.4 K/uL (1.8-7.0); NEUT % 40.4 % (50.0-75.0); NRBC % 0.2 % (0.0-0.0); RBC 4.39 Mil/uL (3.80-5.20); RED CELL DISTRIBUTION WIDTH 19.7 % (11.5-14.5); WHITE BLOOD COUNT 3.4 K/uL (4.8-10.8)
[2018-11-12 06:21] LABS: ALB/GLOB RATIO 0.9 (1.0-2.1); ALBUMIN 2.9 g/dL (3.5-5.0); ALT/SGPT 25 U/L (9-52); AST/SGOT 24 U/L (14-36); BLOOD UREA NITROGEN 22 mg/dl (7-17); CALCIUM 8.7 mg/dL (8.4-10.2); GFR NON-AFRICAN AMERICAN > 60
--- NOTE | 2018-11-12 08:20 | CP.PCM.PN ---
Subjective - Date & Time of Evaluation Date of Evaluation: 11/12/18 Time of Evaluation: 08:21 - Subjective Subjective: AWAKE AND ALERT WANTS ETT PULLED O2 SAT ADEQUATE Objective - Vital Signs/Intake and Output Vital Signs (last 24 hours): Temp Pulse Resp BP Pulse Ox 99.1 F 71 14 133/71 97 11/12/18 04:00 11/12/18 06:31 11/12/18 06:31 11/12/18 06:31 11/12/18 06:31 Intake and Output: 11/12/18 11/12/18 06:59 18:59 Intake Total 1794 Output Total 500 Balance 1294 - Medications Medications: Current Medications Acetaminophen (Tylenol 650mg/20.3ml Solution Ud) 650 mg NG Q6 PRN PRN Reason: fever: temp of > 100.4 F Last Admin: 11/11/18 20:16 Dose: 650 mg Albuterol/Ipratropium (Duoneb 3 Mg/0.5 Mg (3 Ml) Ud) 3 ml INH RQ4 PRN PRN Reason: Shortness of Breath Last Admin: 11/10/18 13:51 Dose: 3 ml Albuterol/Ipratropium (Duoneb 3 Mg/0.5 Mg (3 Ml) Ud) 3 ml INH Q6H JEANA Last Admin: 11/12/18 08:17 Dose: 3 ml Carvedilol (Coreg) 3.125 mg PO Q12 JEANA Last Admin: 11/11/18 20:11 Dose: 3.125 mg Dextrose (Dextrose 50% Inj) 0 ml IV STAT PRN; Protocol PRN Reason: Hypoglycemia Protocol Dextrose (Glutose 15) 0 gm PO ONCE PRN; Protocol PRN Reason: Hypoglycemia Protocol Enoxaparin Sodium (Lovenox) 40 mg SC DAILY JEANA; Protocol Last Admin: 11/11/18 09:38 Dose: 40 mg Furosemide (Lasix) 40 mg IV DAILY JEANA Last Admin: 11/11/18 14:00 Dose: Not Given Glucagon (Glucagen Diagnostic Kit) 0 mg IM STAT PRN; Protocol PRN Reason: Hypoglycemia Protocol Meropenem 1 gm/ Sodium (Chloride) 100 mls @ 100 mls/hr IVPB Q8 JEANA; Protocol Last Admin: 11/12/18 01:00 Dose: 100 mls/hr Vancomycin HCl 1 gm/ Sodium (Chloride) 250 mls @ 166.667 mls/hr IVPB Q12 [facility]; Protocol Last Admin: 11/11/18 20:17 Dose: 166.667 mls/hr Insulin Human Lispro (Humalog) 0 units SC Q6H [facility]; Protocol Last Admin: 11/12/18 05:35 Dose: Not Given Lactobacillus Acidophilus (Bacid Acidophilus) 1 cap PO BID [facility] Last Admin: 11/11/18 16:27 Dose: 1 cap Levothyroxine Sodium (Synthroid) 37.5 mcg IVP DAILY [facility] Last Admin: 11/11/18 09:39 Dose: 37.5 mcg Oseltamivir Phosphate (Tamiflu Susp) 75 mg PO BID [facility]; Protocol Last Admin: 11/11/18 16:28 Dose: 75 mg Pantoprazole Sodium (Protonix Ec Tab) 40 mg PO DAILY [facility] Last Admin: 11/11/18 09:39 Dose: 40 mg Potassium Chloride (K-Dur 20 Meq Er Tab) 20 meq PO DAILY [facility] Last Admin: 11/11/18 09:36 Dose: 20 meq - Labs Labs: 11/12/18 04:30 11/12/18 04:30 PT 11.8 Seconds (9.8-13.1) 11/05/18 21:00 INR 1.0 11/05/18 21:00 APTT 37.4 Seconds (25.6-37.1) H 11/05/18 21:00 - Constitutional Appears: Chronically Ill - Head Exam Head Exam: ATRAUMATIC, NORMAL INSPECTION, NORMOCEPHALIC - Eye Exam Eye Exam: EOMI, Normal appearance, PERRL Pupil Exam: NORMAL ACCOMODATION, PERRL - ENT Exam ENT Exam: Mucous Membranes Moist, Normal Exam - Neck Exam Neck Exam: Full ROM, Normal Inspection. absent: Lymphadenopathy - Respiratory Exam Respiratory Exam: Rales, NORMAL BREATHING PATTERN Additional comments: ETT IN GOOD POSITION - Cardiovascular Exam Cardiovascular Exam: REGULAR RHYTHM, +S1, +S2. absent: Murmur - GI/Abdominal Exam GI & Abdominal Exam: Soft, Normal Bowel Sounds. absent: Tenderness - Rectal Exam Rectal Exam: NORMAL INSPECTION - Extremities Exam Extremities Exam: Full ROM, Normal Capillary Refill, Normal Inspection. absent: Joint Swelling, Pedal Edema - Back Exam Back Exam: NORMAL INSPECTION - Neurological Exam Neurological Exam: Alert, Awake, CN II-XII Intact - Psychiatric Exam Psychiatric exam: Agitated - Skin Skin Exam: Dry, Intact, Normal Color, Warm Assessment and Plan - Assessment and Plan (Free Text) Assessment: ACUTE RESPIRATORY FAILURE--CLINICALLY IMPROVED Plan: CONTINUE ATTEMPTS TO EXTUBATE
[2018-11-12] MEDS: Lactobacillus Acidophilus 500 MU Cap PO SCH ×2 (09:08→16:25)
[2018-11-12] MEDS: Enoxaparin 40 mg Syringe SC SCH (09:10)
[2018-11-12] MEDS: Potassium Chloride 20 mEq ER Tab PO SCH (09:10)
[2018-11-12] MEDS: Pantoprazole 40 mg EC Tab PO SCH (09:11)
[2018-11-12] MEDS: Levothyroxine 100 mcg (0.1 mg) Inj IVP SCH (09:12)
[2018-11-12] MEDS: Oseltamivir 6 MG/ML PO SCH ×4 (09:13→20:21)
--- NOTE | 2018-11-12 09:16 | CP.PCM.PN ---
<Sultan Gianfranco - Last Filed: 11/12/18 11:38> Subjective - Date & Time of Evaluation Date of Evaluation: 11/12/18 Time of Evaluation: 07:55 - Subjective Subjective: Patient seen and examined with Dr. Zhang this morning. Patient is more awake, alert and follows command. Had episode of fever of 100.7 last night. Objective - Vital Signs/Intake and Output Vital Signs (last 24 hours): Temp Pulse Resp BP Pulse Ox 91.2 F L 90 14 124/77 98 11/12/18 08:00 11/12/18 09:09 11/12/18 08:00 11/12/18 09:09 11/12/18 08:00 Intake and Output: 11/12/18 11/12/18 06:59 18:59 Intake Total 1794 Output Total 500 Balance 1294 - Medications Medications: Current Medications Acetaminophen (Tylenol 650mg/20.3ml Solution Ud) 650 mg NG Q6 PRN PRN Reason: fever: temp of > 100.4 F Last Admin: 11/11/18 20:16 Dose: 650 mg Albuterol/Ipratropium (Duoneb 3 Mg/0.5 Mg (3 Ml) Ud) 3 ml INH Q6H [facility] Last Admin: 11/12/18 08:17 Dose: 3 ml Carvedilol (Coreg) 3.125 mg PO Q12 [facility] Last Admin: 11/12/18 09:09 Dose: 3.125 mg Dextrose (Dextrose 50% Inj) 0 ml IV STAT PRN; Protocol PRN Reason: Hypoglycemia Protocol Dextrose (Glutose 15) 0 gm PO ONCE PRN; Protocol PRN Reason: Hypoglycemia Protocol Enoxaparin Sodium (Lovenox) 40 mg SC DAILY [facility]; Protocol Last Admin: 11/12/18 09:10 Dose: 40 mg Furosemide (Lasix) 40 mg IV DAILY [facility] Last Admin: 11/12/18 08:43 Dose: 40 mg Glucagon (Glucagen Diagnostic Kit) 0 mg IM STAT PRN; Protocol PRN Reason: Hypoglycemia Protocol Meropenem 1 gm/ Sodium (Chloride) 100 mls @ 100 mls/hr IVPB Q8 [facility]; Protocol Last Admin: 11/12/18 09:11 Dose: 100 mls/hr Vancomycin HCl 1 gm/ Sodium (Chloride) 250 mls @ 166.667 mls/hr IVPB Q12 [facility]; Protocol Last Admin: 11/12/18 09:13 Dose: 166.667 mls/hr Insulin Human Lispro (Humalog) 0 units SC Q6H [facility]; Protocol Last Admin: 11/12/18 05:35 Dose: Not Given Lactobacillus Acidophilus (Bacid Acidophilus) 1 cap PO BID [facility] Last Admin: 11/12/18 09:08 Dose: 1 cap Levothyroxine Sodium (Synthroid) 37.5 mcg IVP DAILY [facility] Last Admin: 11/12/18 09:12 Dose: 37.5 mcg Oseltamivir Phosphate (Tamiflu Susp) 75 mg PO BID [facility]; Protocol Last Admin: 11/12/18 09:13 Dose: 75 mg Pantoprazole Sodium (Protonix Ec Tab) 40 mg PO DAILY [facility] Last Admin: 11/12/18 09:11 Dose: 40 mg Potassium Chloride (K-Dur 20 Meq Er Tab) 20 meq PO DAILY [facility] Last Admin: 11/12/18 09:10 Dose: 20 meq - Labs Labs: 11/12/18 04:30 11/12/18 04:30 PT 11.8 Seconds (9.8-13.1) 11/05/18 21:00 INR 1.0 11/05/18 21:00 APTT 37.4 Seconds (25.6-37.1) H 11/05/18 21:00 - Constitutional Appears: Other (intubated but more alert and awake) - Head Exam Head Exam: NORMAL INSPECTION - Respiratory Exam Additional comments: s/p intubation - Cardiovascular Exam Cardiovascular Exam: REGULAR RHYTHM, +S1, +S2 - GI/Abdominal Exam GI & Abdominal Exam: Soft, Normal Bowel Sounds. absent: Tenderness - Neurological Exam Neurological Exam: Alert, Awake - Skin Skin Exam: Normal Color, Warm Assessment and Plan - Assessment and Plan (Free Text) Assessment: 82 yo F with hx HTN, CHF, DM, hypothyroidism, pacemaker, admitted due to respiratory failure after being sent from [facility]. Patient was extubated briefly on 11/10/18 but reintubated due to respiratory distress. Patient is more awake and alert today. Plan: -As[employer] consult, input, management appreciated -Pulmonary consult, Dr. Reeves. Recommendation appreciated. -CHF, pacemaker - cardio consult - Dr. Kim. Recs appreciated. -ID consult, Dr. Chiu, recs appreciated. -Presumed tx for hospital acquired infections -c/w Vancomycin and Meropenem -c/w Tamiflu -Hypokalemia resolved, K 4.0 this morning , f/u am labs -blood cx no growth after 3 days -Urine cx: E coli. sensitive to meropenem. -Insulin coverage scale and hypoglycemia protocol -Resume home meds -Prophylaxis: Pantoprazole and Lovenox -Rest of the plan as ordered. Patient seen, examined and plan d/w Dr. Leatha Medel, pgy-2 <Nakul Zhang K - Last Filed: 11/13/18 13:25> Objective - Vital Signs/Intake and Output Vital Signs (last 24 hours): Temp Pulse Resp BP Pulse Ox 98.5 F 98 H 17 124/63 98 11/13/18 12:00 11/13/18 12:00 11/13/18 12:00 11/13/18 12:00 11/13/18 12:00 Intake and Output: 11/13/18 11/13/18 11:59 23:59 Intake Total 450 Balance 450 - Medications Medications: Current Medications Acetaminophen (Tylenol 650mg/20.3ml Solution Ud) 650 mg NG Q6 PRN PRN Reason: fever: temp of > 100.4 F Last Admin: 11/11/18 20:16 Dose: 650 mg Albuterol/Ipratropium (Duoneb 3 Mg/0.5 Mg (3 Ml) Ud) 3 ml INH Q6H [facility] Last Admin: 11/13/18 07:59 Dose: 3 ml Carvedilol (Coreg) 3.125 mg PO Q12 [facility] Last Admin: 11/13/18 08:55 Dose: Not Given Dextrose (Dextrose 50% Inj) 0 ml IV STAT PRN; Protocol PRN Reason: Hypoglycemia Protocol Dextrose (Glutose 15) 0 gm PO ONCE PRN; Protocol PRN Reason: Hypoglycemia Protocol Furosemide (Lasix) 40 mg IV DAILY [facility] Last Admin: 11/13/18 08:55 Dose: 40 mg Glucagon (Glucagen Diagnostic Kit) 0 mg IM STAT PRN; Protocol PRN Reason: Hypoglycemia Protocol Meropenem 1 gm/ Sodium (Chloride) 100 mls @ 100 mls/hr IVPB Q8 [facility]; Protocol Last Admin: 11/13/18 08:54 Dose: 100 mls/hr Vancomycin HCl 500 mg/ Sodium (Chloride) 100 mls @ 100 mls/hr IVPB Q12H [facility]; Protocol Insulin Human Lispro (Humalog) 0 units SC Q6H [facility]; Protocol Last Admin: 11/13/18 12:24 Dose: Not Given Lactobacillus Acidophilus (Bacid Acidophilus) 1 cap PO BID [facility] Last Admin: 11/13/18 08:55 Dose: Not Given Levothyroxine Sodium (Synthroid) 37.5 mcg IVP DAILY [facility] Last Admin: 11/13/18 08:54 Dose: 37.5 mcg Oseltamivir Phosphate (Tamiflu Susp) 75 mg PO BID [facility]; Protocol Last Admin: 11/13/18 08:56 Dose: Not Given Pantoprazole Sodium (Protonix Ec Tab) 40 mg PO DAILY [facility] Last Admin: 11/13/18 08:56 Dose: Not Given Potassium Chloride (K-Dur 20 Meq Er Tab) 20 meq PO DAILY [facility] Last Admin: 11/13/18 08:55 Dose: Not Given - Labs Labs: 11/13/18 04:30 11/13/18 08:21 PT 11.8 Seconds (9.8-13.1) 11/05/18 21:00 INR 1.0 11/05/18 21:00 APTT 37.4 Seconds (25.6-37.1) H 11/05/18 21:00 Assessment and Plan - Assessment and Plan (Free Text) Assessment: Patient was personally seen and examined by me in rounds with residents. Available labs and diagnostic data reviewed. Case, Patient's condition and management plan discussed with residents in rounds. Agree with resident's progress note. Plan: As ordered.
--- NOTE | 2018-11-12 09:17 | CP.CCUPN ---
CCU Subjective - Physician Review Subjective (Free Text): Patient toelrated CPAP, today, good cough reflex, RSBI 40-50 Critical Care Time Spent (in minutes): 32 CCU Objective - Vital Signs / Intake & Output Vital Signs (Last 4 hours): Vital Signs Temp Pulse Resp BP Pulse Ox 11/12/18 09:09 90 124/77 11/12/18 08:43 138/66 11/12/18 08:00 91.2 F L 100 H 14 138/66 98 11/12/18 06:31 71 14 133/71 97 11/12/18 06:00 60 14 128/64 98 Intake and Output (Last 8hrs): Intake & Output 11/11/18 11/12/18 11/12/18 22:59 06:59 14:59 Intake Total 1212 962 Output Total 1200 500 Balance 12 462 Weight 220 lb 8 oz Intake: IV 12 166 Intake, Piggyback 620 336 Tube Feeding 280 360 Free Water Flush 300 100 Output: Urine 1200 500 Urethral (Amaral) 1200 500 Other: # Bowel Movements 2 1 - Physical Exam Head: Positive for: Atraumatic Pupils: Positive for: PERRL. Negative for: Non-Reactive, Pinpoint Extroacular Muscles: Positive for: EOMI. Negative for: Gaze Palsy Conjunctiva: Positive for: Normal. Negative for: Injected, Icteric Mouth: Positive for: Moist Mucous Membranes Pharnyx: Positive for: Normal Nose (Internal): Positive for: Normal Inspection Respiratory/Chest: Positive for: Decreased Breath Sounds (in the lower lobes b/l ), Other (course breath sounds, crackles in the R>L ). Negative for: Clear to Auscultation Cardiovascular: Positive for: Regular Rate and Rhythm, Normal S1, S2, Peripheal Pulses Present. Negative for: Murmurs, Irregular Rhythm, Tachycardic, Bradycardic Abdomen: Positive for: Other (obese ). Negative for: Tenderness, Guarding Genitourinary/Pelvic Exam: Positive for: Other (Amaral draining yellow urine ) Upper Extremity: Positive for: Edema, Other (moving b/l upper ext when stimulated. Mild edema of the hands b/l ) Lower Extremity: Positive for: Other (mild edema, scds on, moving both ext ) Psychiatric: Positive for: Alert - Medications Active Medications: Active Medications Generic Name Dose Route Start Last Admin Trade Name Freq PRN Reason Stop Dose Admin Acetaminophen 650 mg 11/09/18 14:15 11/11/18 20:16 Tylenol 650mg/20.3ml Solution Ud NG 650 mg Q6 PRN Administration fever: temp of > 100.4 F Albuterol/Ipratropium 3 ml 11/11/18 08:00 11/12/18 08:17 Duoneb 3 Mg/0.5 Mg (3 Ml) Ud INH 3 ml Q6H [facility]EANA Administration Carvedilol 3.125 mg 11/06/18 09:00 11/12/18 09:09 Coreg PO 3.125 mg Q12 [facility]NA Administration Dextrose 0 ml 11/06/18 08:46 Dextrose 50% Inj IV STAT PRN Hypoglycemia Protocol Protocol Dextrose 0 gm 11/06/18 08:46 Glutose 15 PO ONCE PRN Hypoglycemia Protocol Protocol Enoxaparin Sodium 40 mg 11/09/18 15:45 11/12/18 09:10 Lovenox SC 40 mg DAILY [facility] Administration Protocol Furosemide 40 mg 11/11/18 13:15 11/12/18 08:43 Lasix IV 40 mg DAILY [facility] Administration Glucagon 0 mg 11/06/18 08:46 Glucagen Diagnostic Kit IM STAT PRN Hypoglycemia Protocol Protocol Meropenem 1 gm/ Sodium 100 mls @ 100 mls/hr 11/09/18 17:00 11/12/18 09:11 Chloride IVPB 100 mls/hr Q8 [facility] Administration Protocol Vancomycin HCl 1 gm/ Sodium 250 mls @ 166.667 mls/hr 11/09/18 21:00 11/12/18 09:13 Chloride IVPB 166.667 mls/hr Q12 [facility] Administration Protocol Insulin Human Lispro 0 units 11/06/18 00:15 11/12/18 05:35 Humalog SC Not Given Q6H [facility] Protocol Lactobacillus Acidophilus 1 cap 11/06/18 17:00 11/12/18 09:08 Bacid Acidophilus PO 1 cap BID [facility] Administration Levothyroxine Sodium 37.5 mcg 11/07/18 09:00 11/12/18 09:12 Synthroid IVP 37.5 mcg DAILY [facility] Administration Oseltamivir Phosphate 75 mg 11/09/18 17:00 11/12/18 09:13 Tamiflu Susp PO 75 mg BID [facility] Administration Protocol Pantoprazole Sodium 40 mg 11/06/18 09:00 11/12/18 09:11 Protonix Ec Tab PO 40 mg DAILY [facility] Administration Potassium Chloride 20 meq 11/07/18 09:00 11/12/18 09:10 K-Dur 20 Meq Er Tab PO 20 meq DAILY [facility] Administration - Patient Studies Lab Studies: Microbiology Studies 11/09/18 09:14 Blood Culture - Preliminary Blood-Venous NO GROWTH AFTER 48 HOURS 11/05/18 23:15 Blood Culture - Final Blood NO GROWTH AFTER 5 DAYS Gram Stain - Final TEST NOT PERFORMED Lab Studies 11/12/18 11/12/18 11/12/18 Range/Units 04:30 04:30 04:12 WBC 3.4 L (4.8-10.8) K/uL RBC 4.39 (3.80-5.20) Mil/uL Hgb 11.3 L (12.0-16.0) g/dL Hct 35.4 (34.0-47.0) % MCV 80.8 L (81.0-99.0) fl MCH 25.7 L (27.0-31.0) pg MCHC 31.8 L (33.0-37.0) g/dL RDW 19.7 H (11.5-14.5) % Plt Count 171 (130-400) K/uL MPV 9.4 (7.2-11.7) fl Neut % (Auto) 40.4 L (50.0-75.0) % Lymph % (Auto) 35.7 (20.0-40.0) % [place] % (Auto) 19.2 H (0.0-10.0) % Eos % (Auto) 4.3 H (0.0-4.0) % Baso % (Auto) 0.4 (0.0-2.0) % Neut # (Auto) 1.4 L (1.8-7.0) K/uL Lymph # (Auto) 1.2 (1.0-4.3) K/uL [place] # (Auto) 0.7 (0.0-0.8) K/uL Eos # (Auto) 0.1 (0.0-0.7) K/uL Baso # (Auto) 0.0 (0.0-0.2) K/uL Sodium 140 (132-148) mmol/l Potassium 4.0 (3.6-5.0) MMOL/L Chloride 102 (98-107) mmol/L Carbon Dioxide 31 H (22-30) mmol/L Anion Gap 11 (10-20) BUN 22 H (7-17) mg/dl Creatinine 0.8 (0.7-1.2) mg/dl Est GFR ( Amer) > 60 Est GFR (Non-Af Amer) > 60 POC Glucose (mg/dL) 159 H (65-110) mg/dL Random Glucose 158 H (65-105) mg/dL Calcium 8.7 (8.4-10.2) mg/dL Phosphorus 2.9 (2.5-4.5) mg/dl Magnesium 2.1 (1.6-2.3) MG/DL Total Bilirubin 0.5 (0.2-1.3) mg/dl AST 24 (14-36) U/L ALT 25 (9-52) U/L Alkaline Phosphatase 90 (38-126) U/L Troponin I 0.0280 (0.00-0.120) ng/mL Total Protein 6.1 L (6.3-8.2) G/DL Albumin 2.9 L (3.5-5.0) g/dL Globulin 3.2 (2.2-3.9) gm/dL Albumin/Globulin Ratio 0.9 L (1.0-2.1) EBV Capsid Ag IgG Ab U/mL EBV Capsid Ag IgM Ab U/mL EBV Nuclear Antigen Ab U/mL 11/11/18 11/11/18 11/11/18 Range/Units 23:21 17:37 11:51 WBC (4.8-10.8) K/uL RBC (3.80-5.20) Mil/uL Hgb (12.0-16.0) g/dL Hct (34.0-47.0) % MCV (81.0-99.0) fl MCH (27.0-31.0) pg MCHC (33.0-37.0) g/dL RDW (11.5-14.5) % Plt Count (130-400) K/uL MPV (7.2-11.7) fl Neut % (Auto) (50.0-75.0) % Lymph % (Auto) (20.0-40.0) % [place] % (Auto) (0.0-10.0) % Eos % (Auto) (0.0-4.0) % Baso % (Auto) (0.0-2.0) % Neut # (Auto) (1.8-7.0) K/uL Lymph # (Auto) (1.0-4.3) K/uL [place] # (Auto) (0.0-0.8) K/uL Eos # (Auto) (0.0-0.7) K/uL Baso # (Auto) (0.0-0.2) K/uL Sodium (132-148) mmol/l Potassium (3.6-5.0) MMOL/L Chloride (98-107) mmol/L Carbon Dioxide (22-30) mmol/L Anion Gap (10-20) BUN (7-17) mg/dl Creatinine (0.7-1.2) mg/dl Est GFR ( Amer) Est GFR (Non-Af Amer) POC Glucose (mg/dL) 151 H 135 H 155 H (65-110) mg/dL Random Glucose (65-105) mg/dL Calcium (8.4-10.2) mg/dL Phosphorus (2.5-4.5) mg/dl Magnesium (1.6-2.3) MG/DL Total Bilirubin (0.2-1.3) mg/dl AST (14-36) U/L ALT (9-52) U/L Alkaline Phosphatase (38-126) U/L Troponin I (0.00-0.120) ng/mL Total Protein (6.3-8.2) G/DL Albumin (3.5-5.0) g/dL Globulin (2.2-3.9) gm/dL Albumin/Globulin Ratio (1.0-2.1) EBV Capsid Ag IgG Ab U/mL EBV Capsid Ag IgM Ab U/mL EBV Nuclear Antigen Ab U/mL 11/09/18 Range/Units 18:12 WBC (4.8-10.8) K/uL RBC (3.80-5.20) Mil/uL Hgb (12.0-16.0) g/dL Hct (34.0-47.0) % MCV (81.0-99.0) fl MCH (27.0-31.0) pg MCHC (33.0-37.0) g/dL RDW (11.5-14.5) % Plt Count (130-400) K/uL MPV (7.2-11.7) fl Neut % (Auto) (50.0-75.0) % Lymph % (Auto) (20.0-40.0) % [place] % (Auto) (0.0-10.0) % Eos % (Auto) (0.0-4.0) % Baso % (Auto) (0.0-2.0) % Neut # (Auto) (1.8-7.0) K/uL Lymph # (Auto) (1.0-4.3) K/uL [place] # (Auto) (0.0-0.8) K/uL Eos # (Auto) (0.0-0.7) K/uL Baso # (Auto) (0.0-0.2) K/uL Sodium (132-148) mmol/l Potassium (3.6-5.0) MMOL/L Chloride (98-107) mmol/L Carbon Dioxide (22-30) mmol/L Anion Gap (10-20) BUN (7-17) mg/dl Creatinine (0.7-1.2) mg/dl Est GFR ( Amer) Est GFR (Non-Af Amer) POC Glucose (mg/dL) (65-110) mg/dL Random Glucose (65-105) mg/dL Calcium (8.4-10.2) mg/dL Phosphorus (2.5-4.5) mg/dl Magnesium (1.6-2.3) MG/DL Total Bilirubin (0.2-1.3) mg/dl AST (14-36) U/L ALT (9-52) U/L Alkaline Phosphatase (38-126) U/L Troponin I (0.00-0.120) ng/mL Total Protein (6.3-8.2) G/DL Albumin (3.5-5.0) g/dL Globulin (2.2-3.9) gm/dL Albumin/Globulin Ratio (1.0-2.1) EBV Capsid Ag IgG Ab 20.20 H U/mL EBV Capsid Ag IgM Ab <36.00 U/mL EBV Nuclear Antigen Ab 259.00 H U/mL Laboratory Results - last 24 hr 11/09/18 11/11/18 11/11/18 18:12 11:51 17:37 WBC RBC Hgb Hct MCV MCH MCHC RDW Plt Count MPV Neut % (Auto) Lymph % (Auto) [place] % (Auto) Eos % (Auto) Baso % (Auto) Neut # (Auto) Lymph # (Auto) [place] # (Auto) Eos # (Auto) Baso # (Auto) Sodium Potassium Chloride Carbon Dioxide Anion Gap BUN Creatinine Est GFR ( Amer) Est GFR (Non-Af Amer) POC Glucose (mg/dL) 155 H 135 H Random Glucose Calcium Phosphorus Magnesium Total Bilirubin AST ALT Alkaline Phosphatase Troponin I Total Protein Albumin Globulin Albumin/Globulin Ratio EBV Capsid Ag IgG Ab 20.20 H EBV Capsid Ag IgM Ab <36.00 EBV Nuclear Antigen Ab 259.00 H 11/11/18 11/12/18 11/12/18 23:21 04:12 04:30 WBC 3.4 L RBC 4.39 Hgb 11.3 L Hct 35.4 MCV 80.8 L MCH 25.7 L MCHC 31.8 L RDW 19.7 H Plt Count 171 MPV 9.4 Neut % (Auto) 40.4 L Lymph % (Auto) 35.7 [place] % (Auto) 19.2 H Eos % (Auto) 4.3 H Baso % (Auto) 0.4 Neut # (Auto) 1.4 L Lymph # (Auto) 1.2 [place] # (Auto) 0.7 Eos # (Auto) 0.1 Baso # (Auto) 0.0 Sodium Potassium Chloride Carbon Dioxide Anion Gap BUN Creatinine Est GFR ( Amer) Est GFR (Non-Af Amer) POC Glucose (mg/dL) 151 H 159 H Random Glucose Calcium Phosphorus Magnesium Total Bilirubin AST ALT Alkaline Phosphatase Troponin I Total Protein Albumin Globulin Albumin/Globulin Ratio EBV Capsid Ag IgG Ab EBV Capsid Ag IgM Ab EBV Nuclear Antigen Ab 11/12/18 04:30 WBC RBC Hgb Hct MCV MCH MCHC RDW Plt Count MPV Neut % (Auto) Lymph % (Auto) [place] % (Auto) Eos % (Auto) Baso % (Auto) Neut # (Auto) Lymph # (Auto) [place] # (Auto) Eos # (Auto) Baso # (Auto) Sodium 140 Potassium 4.0 Chloride 102 Carbon Dioxide 31 H Anion Gap 11 BUN 22 H Creatinine 0.8 Est GFR ( Amer) > 60 Est GFR (Non-Af Amer) > 60 POC Glucose (mg/dL) Random Glucose 158 H Calcium 8.7 Phosphorus 2.9 Magnesium 2.1 Total Bilirubin 0.5 AST 24 ALT 25 Alkaline Phosphatase 90 Troponin I 0.0280 Total Protein 6.1 L Albumin 2.9 L Globulin 3.2 Albumin/Globulin Ratio 0.9 L EBV Capsid Ag IgG Ab EBV Capsid Ag IgM Ab EBV Nuclear Antigen Ab Radiology Impressions: Radiology Impressions Chest X-Ray 11/11/18 06:00 IMPRESSION: Low lung volumes, moderate pulmonary venous congestion and small effusions. Fingerstick Blood Sugar Results: 137 Review of Systems - Review of Systems Systems not reviewed;Unavailable: Intubated Assessment/Plan - Assessment and Plan (Free Text) Assessment: HYpoxic respiratory failure: tolerated CPAP, extubated today, NG tube to suction, continue bronchodilators and solumedrol, avoid fluid overloaded states _Chronic diastolic heart failre: rate control and negative balance -d/c amaral -pt/ot -speech and swallow tomorrow -OOB to chair after extubation -incentive spirometry -continue to monitor - Date & Time Date: 11/12/18 Time: 09:17
[2018-11-12 09:32] LABS: ABG ALLEN TEST YES; ARTERIAL BLOOD GAS HCO3 30.3 mmol/L (21-28); ARTERIAL BLOOD GAS O2 SAT 93.7 % (95-98); ARTERIAL BLOOD GAS PCO2 36 mm/Hg (35-45); ARTERIAL BLOOD GAS PH 7.53 (7.35-7.45); ARTERIAL BLOOD GAS PO2 59 mm/Hg (80-100); ARTERIAL BLOOD GAS TCO2 31.2 mmol/L (22-28)
--- NOTE | 2018-11-12 13:40 | RAD ---
Date of service: 11/12/2018 PROCEDURE: CHEST RADIOGRAPH, 1 VIEW HISTORY: rvsl lung COMPARISON: Multiple serial examinations preceding the most recent study: November 11, 2018. FINDINGS: LUNGS: Consolidative changes/atelectasis right lower lobe a new finding. PLEURA: No pneumothorax or pleural fluid seen. CARDIOVASCULAR: Atherosclerotic calcifications identified primarily aortic arch. Position/ configuration of pacemaker No radiographic findings to suggest acute or significant cardiovascular disease. Venous access catheter in stable, satisfactory position. OSSEOUS STRUCTURES: No significant abnormalities. VISUALIZED UPPER ABDOMEN: Normal. OTHER FINDINGS: Satisfactory position of endotracheal tube. IMPRESSION: Evolving right lower lobe infiltrate. Stable position of support apparatus.
[2018-11-12 17:05] LABS: VENOUS BLOOD GAS PCO2 56 mmHg (40-60); VENOUS BLOOD GAS PO2 32 mm/Hg (30-55)
--- NOTE | 2018-11-12 18:39 | CP.PCM.PN ---
Subjective - Date & Time of Evaluation Date of Evaluation: 11/12/18 Time of Evaluation: 08:00 - Subjective Subjective: extubated more alert nad Objective - Vital Signs/Intake and Output Vital Signs (last 24 hours): Temp Pulse Resp BP Pulse Ox 96.5 F L 104 H 34 H 146/73 94 L 11/12/18 16:00 11/12/18 18:00 11/12/18 18:00 11/12/18 18:00 11/12/18 18:00 Intake and Output: 11/12/18 11/12/18 06:59 18:59 Intake Total 1794 136 Output Total 500 Balance 1294 136 - Medications Medications: Current Medications Acetaminophen (Tylenol 650mg/20.3ml Solution Ud) 650 mg NG Q6 PRN PRN Reason: fever: temp of > 100.4 F Last Admin: 11/11/18 20:16 Dose: 650 mg Albuterol/Ipratropium (Duoneb 3 Mg/0.5 Mg (3 Ml) Ud) 3 ml INH Q6H [facility] Last Admin: 11/12/18 14:32 Dose: 3 ml Carvedilol (Coreg) 3.125 mg PO Q12 [facility] Last Admin: 11/12/18 09:09 Dose: 3.125 mg Dextrose (Dextrose 50% Inj) 0 ml IV STAT PRN; Protocol PRN Reason: Hypoglycemia Protocol Dextrose (Glutose 15) 0 gm PO ONCE PRN; Protocol PRN Reason: Hypoglycemia Protocol Furosemide (Lasix) 40 mg IV DAILY [facility] Last Admin: 11/12/18 08:43 Dose: 40 mg Glucagon (Glucagen Diagnostic Kit) 0 mg IM STAT PRN; Protocol PRN Reason: Hypoglycemia Protocol Meropenem 1 gm/ Sodium (Chloride) 100 mls @ 100 mls/hr IVPB Q8 [facility]; Protocol Last Admin: 11/12/18 16:25 Dose: 100 mls/hr Vancomycin HCl 1 gm/ Sodium (Chloride) 250 mls @ 166.667 mls/hr IVPB Q12 [facility]; Protocol Last Admin: 11/12/18 09:13 Dose: 166.667 mls/hr Insulin Human Lispro (Humalog) 0 units SC Q6H [facility]; Protocol Last Admin: 11/12/18 17:56 Dose: Not Given Lactobacillus Acidophilus (Bacid Acidophilus) 1 cap PO BID [facility] Last Admin: 11/12/18 16:25 Dose: Not Given Levothyroxine Sodium (Synthroid) 37.5 mcg IVP DAILY [facility] Last Admin: 11/12/18 09:12 Dose: 37.5 mcg Oseltamivir Phosphate (Tamiflu Susp) 75 mg PO BID [facility]; Protocol Last Admin: 11/12/18 16:25 Dose: Not Given Pantoprazole Sodium (Protonix Ec Tab) 40 mg PO DAILY [facility] Last Admin: 11/12/18 09:11 Dose: 40 mg Potassium Chloride (K-Dur 20 Meq Er Tab) 20 meq PO DAILY [facility] Last Admin: 11/12/18 09:10 Dose: 20 meq - Labs Labs: 11/12/18 04:30 11/12/18 04:30 PT 11.8 Seconds (9.8-13.1) 11/05/18 21:00 INR 1.0 11/05/18 21:00 APTT 37.4 Seconds (25.6-37.1) H 11/05/18 21:00 - Constitutional Appears: Confused, Chronically Ill - Head Exam Head Exam: ATRAUMATIC, NORMOCEPHALIC - Eye Exam Eye Exam: EOMI, PERRL. absent: Scleral icterus - ENT Exam ENT Exam: Mucous Membranes Dry - Neck Exam Neck Exam: absent: Lymphadenopathy - Respiratory Exam Respiratory Exam: Decreased Breath Sounds, Rhonchi - Cardiovascular Exam Cardiovascular Exam: REGULAR RHYTHM - GI/Abdominal Exam GI & Abdominal Exam: Distended, Soft - Rectal Exam Rectal Exam: Deferred - Exam Exam: NORMAL INSPECTION - Back Exam Back Exam: absent: CVA tenderness (L), CVA tenderness (R) - Neurological Exam Neurological Exam: Alert, Altered, CN II-XII Intact Assessment and Plan (1) CHF (congestive heart failure) Status: Acute (2) Dehydration Status: Acute (3) Pneumonia Status: Acute (4) Respiratory failure Status: Acute (5) Sepsis Status: Acute (6) UTI (urinary tract infection) Status: Acute - Assessment and Plan (Free Text) Assessment: cont rx sepsis/ pneumonia/ empiric rx HCAP
[2018-11-13] MEDS: Meropenem 1 GM in Sodium Chloride 0.9% 100 ML IVPB SCH ×3 (00:04→17:23)
[2018-11-13] MEDS: Insulin Lispro (humaLOG) 100 Units/ml Inj SC SCH ×4 (00:06→17:28)
[2018-11-13] MEDS: Albuterol-Ipratrop 3 mg / 0.5 (3 ml) UD INH SCH ×3 (01:01→19:24)
[2018-11-13 04:16] LABS: ABG ALLEN TEST YES; ARTERIAL BLOOD GAS HCO3 31.8 mmol/L (21-28); ARTERIAL BLOOD GAS O2 SAT 93.7 % (95-98); ARTERIAL BLOOD GAS PCO2 58 mm/Hg (35-45); ARTERIAL BLOOD GAS PO2 62 mm/Hg (80-100); ARTERIAL BLOOD GAS TCO2 37.7 mmol/L (22-28)
[2018-11-13 05:43] LABS: HEMOGLOBIN 11.3 g/dL (12.0-16.0); MEAN CELL VOLUME 82.1 fl (81.0-99.0); MEAN CORPUSCULAR HEMOGLOBIN 25.6 pg (27.0-31.0); MEAN CORPUSCULAR HGB CONC 31.1 g/dL (33.0-37.0); RBC 4.43 Mil/uL (3.80-5.20); RED CELL DISTRIBUTION WIDTH 20.4 % (11.5-14.5); WHITE BLOOD COUNT 2.8 K/uL (4.8-10.8)
[2018-11-13] MEDS: Levothyroxine 100 mcg (0.1 mg) Inj IVP SCH (08:54)
[2018-11-13] MEDS: Lactobacillus Acidophilus 500 MU Cap PO SCH ×2 (08:55→17:23)
[2018-11-13] MEDS: Potassium Chloride 20 mEq ER Tab PO SCH (08:55)
[2018-11-13] MEDS: Pantoprazole 40 mg EC Tab PO SCH (08:56)
[2018-11-13] MEDS: Oseltamivir 6 MG/ML PO SCH ×2 (08:56→17:27)
--- NOTE | 2018-11-13 09:36 | CP.PCM.PN ---
<Sultan Gianfranco - Last Filed: 11/13/18 09:37> Subjective - Date & Time of Evaluation Date of Evaluation: 11/13/18 Time of Evaluation: 07:55 - Subjective Subjective: Patient seen and examined with Dr. Zhang this morning. Patient was extubated yesterday. No acute overnight events She is awake, alert and follows command. Afebrile with stable vitals with occasional tachycardia. Objective - Vital Signs/Intake and Output Vital Signs (last 24 hours): Temp Pulse Resp BP Pulse Ox 97.8 F 94 H 24 144/68 98 11/13/18 08:00 11/13/18 08:00 11/13/18 08:00 11/13/18 08:55 11/13/18 08:00 Intake and Output: 11/13/18 11/13/18 06:59 18:59 Intake Total 410 Balance 410 - Medications Medications: Current Medications Acetaminophen (Tylenol 650mg/20.3ml Solution Ud) 650 mg NG Q6 PRN PRN Reason: fever: temp of > 100.4 F Last Admin: 11/11/18 20:16 Dose: 650 mg Albuterol/Ipratropium (Duoneb 3 Mg/0.5 Mg (3 Ml) Ud) 3 ml INH Q6H [facility] Last Admin: 11/13/18 07:59 Dose: 3 ml Carvedilol (Coreg) 3.125 mg PO Q12 [facility] Last Admin: 11/13/18 08:55 Dose: Not Given Dextrose (Dextrose 50% Inj) 0 ml IV STAT PRN; Protocol PRN Reason: Hypoglycemia Protocol Dextrose (Glutose 15) 0 gm PO ONCE PRN; Protocol PRN Reason: Hypoglycemia Protocol Furosemide (Lasix) 40 mg IV DAILY [facility] Last Admin: 11/13/18 08:55 Dose: 40 mg Glucagon (Glucagen Diagnostic Kit) 0 mg IM STAT PRN; Protocol PRN Reason: Hypoglycemia Protocol Meropenem 1 gm/ Sodium (Chloride) 100 mls @ 100 mls/hr IVPB Q8 [facility]; Protocol Last Admin: 11/13/18 08:54 Dose: 100 mls/hr Vancomycin HCl 1 gm/ Sodium (Chloride) 250 mls @ 166.667 mls/hr IVPB Q12 [facility]; Protocol Last Admin: 11/13/18 08:58 Dose: 166.667 mls/hr Insulin Human Lispro (Humalog) 0 units SC Q6H [facility]; Protocol Last Admin: 11/13/18 05:21 Dose: Not Given Lactobacillus Acidophilus (Bacid Acidophilus) 1 cap PO BID [facility] Last Admin: 11/13/18 08:55 Dose: Not Given Levothyroxine Sodium (Synthroid) 37.5 mcg IVP DAILY [facility] Last Admin: 11/13/18 08:54 Dose: 37.5 mcg Oseltamivir Phosphate (Tamiflu Susp) 75 mg PO BID [facility]; Protocol Last Admin: 11/13/18 08:56 Dose: Not Given Pantoprazole Sodium (Protonix Ec Tab) 40 mg PO DAILY [facility] Last Admin: 11/13/18 08:56 Dose: Not Given Potassium Chloride (K-Dur 20 Meq Er Tab) 20 meq PO DAILY [facility] Last Admin: 11/13/18 08:55 Dose: Not Given - Labs Labs: 11/13/18 04:30 11/12/18 04:30 PT 11.8 Seconds (9.8-13.1) 11/05/18 21:00 INR 1.0 11/05/18 21:00 APTT 37.4 Seconds (25.6-37.1) H 11/05/18 21:00 - Constitutional Appears: Non-toxic, No Acute Distress, Other (On aerosol mask) - Head Exam Head Exam: NORMAL INSPECTION - Eye Exam Eye Exam: Normal appearance - Respiratory Exam Respiratory Exam: Prolonged Expiratory Phase. absent: Wheezes, Respiratory Distress Additional comments: B/L mild crackles. - Cardiovascular Exam Cardiovascular Exam: REGULAR RHYTHM, +S1, +S2 - GI/Abdominal Exam GI & Abdominal Exam: Soft, Normal Bowel Sounds. absent: Tenderness - Extremities Exam Extremities Exam: Pedal Edema. absent: Calf Tenderness - Neurological Exam Neurological Exam: Alert, Awake - Psychiatric Exam Psychiatric exam: Normal Affect, Normal Mood - Skin Skin Exam: Normal Color Assessment and Plan - Assessment and Plan (Free Text) Assessment: 82 yo F with hx HTN, CHF, DM, hypothyroidism, pacemaker, admitted due to respiratory failure after being sent from [facility]. Patient was extubated briefly on 11/10/18 but reintubated due to respiratory distress. Patient was extubated yesterday and currently on Aerosol mask at 30%. Plan: -Grants Director consult, input, management appreciated -Pulmonary consult, Dr. Reeves. Recommendation appreciated. -c/w chest PT, pulmonary hygiene and nebulizer. -CHF, pacemaker - cardio consult - Dr. Kim. Recs appreciated. -ID consult, Dr. Chiu, recs appreciated. -Presumed tx for hospital acquired infections -c/w Vancomycin and Meropenem -c/w Tamiflu -blood cx no growth after 4 days -Urine cx: E coli. sensitive to meropenem. -Insulin coverage scale and hypoglycemia protocol -Resume home meds -Prophylaxis: Pantoprazole and Lovenox -Rest of the plan as ordered. Patient seen, examined and plan d/w Dr. Leatha Medel, [id number] <Nakul Zhang - Last Filed: 11/13/18 13:22> Objective - Vital Signs/Intake and Output Vital Signs (last 24 hours): Temp Pulse Resp BP Pulse Ox 98.5 F 98 H 17 124/63 98 11/13/18 12:00 11/13/18 12:00 11/13/18 12:00 11/13/18 12:00 11/13/18 12:00 Intake and Output: 11/13/18 11/13/18 11:59 23:59 Intake Total 450 Balance 450 - Medications Medications: Current Medications Acetaminophen (Tylenol 650mg/20.3ml Solution Ud) 650 mg NG Q6 PRN PRN Reason: fever: temp of > 100.4 F Last Admin: 11/11/18 20:16 Dose: 650 mg Albuterol/Ipratropium (Duoneb 3 Mg/0.5 Mg (3 Ml) Ud) 3 ml INH Q6H [facility] Last Admin: 11/13/18 07:59 Dose: 3 ml Carvedilol (Coreg) 3.125 mg PO Q12 [facility] Last Admin: 11/13/18 08:55 Dose: Not Given Dextrose (Dextrose 50% Inj) 0 ml IV STAT PRN; Protocol PRN Reason: Hypoglycemia Protocol Dextrose (Glutose 15) 0 gm PO ONCE PRN; Protocol PRN Reason: Hypoglycemia Protocol Furosemide (Lasix) 40 mg IV DAILY [facility] Last Admin: 11/13/18 08:55 Dose: 40 mg Glucagon (Glucagen Diagnostic Kit) 0 mg IM STAT PRN; Protocol PRN Reason: Hypoglycemia Protocol Meropenem 1 gm/ Sodium (Chloride) 100 mls @ 100 mls/hr IVPB Q8 [facility]; Protocol Last Admin: 11/13/18 08:54 Dose: 100 mls/hr Vancomycin HCl 500 mg/ Sodium (Chloride) 100 mls @ 100 mls/hr IVPB Q12H [facility]; Protocol Insulin Human Lispro (Humalog) 0 units SC Q6H [facility]; Protocol Last Admin: 11/13/18 12:24 Dose: Not Given Lactobacillus Acidophilus (Bacid Acidophilus) 1 cap PO BID [facility] Last Admin: 11/13/18 08:55 Dose: Not Given Levothyroxine Sodium (Synthroid) 37.5 mcg IVP DAILY [facility] Last Admin: 11/13/18 08:54 Dose: 37.5 mcg Oseltamivir Phosphate (Tamiflu Susp) 75 mg PO BID [facility]; Protocol Last Admin: 11/13/18 08:56 Dose: Not Given Pantoprazole Sodium (Protonix Ec Tab) 40 mg PO DAILY [facility] Last Admin: 11/13/18 08:56 Dose: Not Given Potassium Chloride (K-Dur 20 Meq Er Tab) 20 meq PO DAILY [facility] Last Admin: 11/13/18 08:55 Dose: Not Given - Labs Labs: 11/13/18 04:30 11/13/18 08:21 PT 11.8 Seconds (9.8-13.1) 11/05/18 21:00 INR 1.0 11/05/18 21:00 APTT 37.4 Seconds (25.6-37.1) H 11/05/18 21:00 Assessment and Plan - Assessment and Plan (Free Text) Assessment: Patient was personally seen and examined by me in rounds with residents. Available labs and diagnostic data reviewed. Case, Patient's condition and management plan discussed with residents in rounds. Agree with resident's progress note. Plan: As ordered.
[2018-11-13 09:57] LABS: BLOOD UREA NITROGEN 18 mg/dl (7-17); CALCIUM 8.9 mg/dL (8.4-10.2); GFR NON-AFRICAN AMERICAN > 60
--- NOTE | 2018-11-13 11:48 | CP.PCM.PN ---
Subjective - Date & Time of Evaluation Date of Evaluation: 11/13/18 Time of Evaluation: 11:49 - Subjective Subjective: EXTUBATED ON BIPAP BUT REMAINS AGITATED AND KEEPS REMOVING BIPAP ATTEMPTING TO GET OUT OF BED O2 SAT-85% OFF BIPAP AND 100% ON BIPAP Objective - Vital Signs/Intake and Output Vital Signs (last 24 hours): Temp Pulse Resp BP Pulse Ox 97.8 F 97 H 24 144/68 98 11/13/18 08:00 11/13/18 10:03 11/13/18 08:00 11/13/18 08:55 11/13/18 08:00 Intake and Output: 11/13/18 11/13/18 06:59 18:59 Intake Total 410 Balance 410 - Medications Medications: Current Medications Acetaminophen (Tylenol 650mg/20.3ml Solution Ud) 650 mg NG Q6 PRN PRN Reason: fever: temp of > 100.4 F Last Admin: 11/11/18 20:16 Dose: 650 mg Albuterol/Ipratropium (Duoneb 3 Mg/0.5 Mg (3 Ml) Ud) 3 ml INH Q6H [facility] Last Admin: 11/13/18 07:59 Dose: 3 ml Carvedilol (Coreg) 3.125 mg PO Q12 [facility] Last Admin: 11/13/18 08:55 Dose: Not Given Dextrose (Dextrose 50% Inj) 0 ml IV STAT PRN; Protocol PRN Reason: Hypoglycemia Protocol Dextrose (Glutose 15) 0 gm PO ONCE PRN; Protocol PRN Reason: Hypoglycemia Protocol Furosemide (Lasix) 40 mg IV DAILY [facility] Last Admin: 11/13/18 08:55 Dose: 40 mg Glucagon (Glucagen Diagnostic Kit) 0 mg IM STAT PRN; Protocol PRN Reason: Hypoglycemia Protocol Meropenem 1 gm/ Sodium (Chloride) 100 mls @ 100 mls/hr IVPB Q8 [facility]; Protocol Last Admin: 11/13/18 08:54 Dose: 100 mls/hr Vancomycin HCl 500 mg/ Sodium (Chloride) 100 mls @ 100 mls/hr IVPB Q12H [facility]; Protocol Insulin Human Lispro (Humalog) 0 units SC Q6H [facility]; Protocol Last Admin: 11/13/18 05:21 Dose: Not Given Lactobacillus Acidophilus (Bacid Acidophilus) 1 cap PO BID [facility] Last Admin: 11/13/18 08:55 Dose: Not Given Levothyroxine Sodium (Synthroid) 37.5 mcg IVP DAILY [facility] Last Admin: 11/13/18 08:54 Dose: 37.5 mcg Oseltamivir Phosphate (Tamiflu Susp) 75 mg PO BID [facility]; Protocol Last Admin: 11/13/18 08:56 Dose: Not Given Pantoprazole Sodium (Protonix Ec Tab) 40 mg PO DAILY [facility] Last Admin: 11/13/18 08:56 Dose: Not Given Potassium Chloride (K-Dur 20 Meq Er Tab) 20 meq PO DAILY [facility] Last Admin: 11/13/18 08:55 Dose: Not Given - Labs Labs: 11/13/18 04:30 11/13/18 08:21 PT 11.8 Seconds (9.8-13.1) 11/05/18 21:00 INR 1.0 11/05/18 21:00 APTT 37.4 Seconds (25.6-37.1) H 11/05/18 21:00 - Constitutional Appears: Agitated - Head Exam Head Exam: ATRAUMATIC, NORMAL INSPECTION, NORMOCEPHALIC - Eye Exam Eye Exam: EOMI, Normal appearance, PERRL Pupil Exam: NORMAL ACCOMODATION, PERRL - ENT Exam ENT Exam: Mucous Membranes Moist, Normal Exam - Neck Exam Neck Exam: Full ROM, Normal Inspection. absent: Lymphadenopathy - Respiratory Exam Respiratory Exam: Prolonged Expiratory Phase, Rales Additional comments: ON BIPAP - Cardiovascular Exam Cardiovascular Exam: REGULAR RHYTHM, +S1, +S2. absent: Murmur - GI/Abdominal Exam GI & Abdominal Exam: Soft, Normal Bowel Sounds. absent: Tenderness - Rectal Exam Rectal Exam: NORMAL INSPECTION - Extremities Exam Extremities Exam: Full ROM, Normal Capillary Refill, Normal Inspection. absent: Joint Swelling, Pedal Edema - Back Exam Back Exam: NORMAL INSPECTION - Neurological Exam Neurological Exam: Alert, Awake, CN II-XII Intact - Psychiatric Exam Psychiatric exam: Agitated - Skin Skin Exam: Dry, Intact, Normal Color, Warm Assessment and Plan - Assessment and Plan (Free Text) Assessment: ACUTE RESPIRATORY FAILURE AGITATION/ALTERED MENTAL STATUS Plan: CONTINU BIPAP RX ANTIANXIETY MEDS,PRN
[2018-11-13] MEDS ORDERED: Lidocaine 1% Inj (20ml) ONE (14:26)
--- NOTE | 2018-11-13 14:40 | CP.PCM.PN ---
Subjective - Date & Time of Evaluation Date of Evaluation: 11/13/18 Time of Evaluation: 07:00 - Subjective Subjective: afebrile less sob no new cultures iv rx renewed Objective - Vital Signs/Intake and Output Vital Signs (last 24 hours): Temp Pulse Resp BP Pulse Ox 99.8 F H 100 H 22 138/69 95 11/13/18 13:45 11/13/18 13:45 11/13/18 13:45 11/13/18 13:45 11/13/18 13:45 Intake and Output: 11/13/18 11/13/18 06:59 18:59 Intake Total 410 350 Balance 410 350 - Medications Medications: Current Medications Acetaminophen (Tylenol 650mg/20.3ml Solution Ud) 650 mg NG Q6 PRN PRN Reason: fever: temp of > 100.4 F Last Admin: 11/11/18 20:16 Dose: 650 mg Albuterol/Ipratropium (Duoneb 3 Mg/0.5 Mg (3 Ml) Ud) 3 ml INH Q6H [facility] Last Admin: 11/13/18 07:59 Dose: 3 ml Carvedilol (Coreg) 3.125 mg PO Q12 [facility] Last Admin: 11/13/18 08:55 Dose: Not Given Dextrose (Dextrose 50% Inj) 0 ml IV STAT PRN; Protocol PRN Reason: Hypoglycemia Protocol Dextrose (Glutose 15) 0 gm PO ONCE PRN; Protocol PRN Reason: Hypoglycemia Protocol Furosemide (Lasix) 40 mg IV DAILY [facility] Last Admin: 11/13/18 08:55 Dose: 40 mg Glucagon (Glucagen Diagnostic Kit) 0 mg IM STAT PRN; Protocol PRN Reason: Hypoglycemia Protocol Meropenem 1 gm/ Sodium (Chloride) 100 mls @ 100 mls/hr IVPB Q8 [facility]; Protocol Last Admin: 11/13/18 08:54 Dose: 100 mls/hr Vancomycin HCl 500 mg/ Sodium (Chloride) 100 mls @ 100 mls/hr IVPB Q12H [facility]; Protocol Insulin Human Lispro (Humalog) 0 units SC Q6H [facility]; Protocol Last Admin: 11/13/18 12:24 Dose: Not Given Lactobacillus Acidophilus (Bacid Acidophilus) 1 cap PO BID [facility] Last Admin: 11/13/18 08:55 Dose: Not Given Levothyroxine Sodium (Synthroid) 37.5 mcg IVP DAILY [facility] Last Admin: 11/13/18 08:54 Dose: 37.5 mcg Oseltamivir Phosphate (Tamiflu Susp) 75 mg PO BID [facility]; Protocol Last Admin: 11/13/18 08:56 Dose: Not Given Pantoprazole Sodium (Protonix Ec Tab) 40 mg PO DAILY [facility] Last Admin: 11/13/18 08:56 Dose: Not Given Potassium Chloride (K-Dur 20 Meq Er Tab) 20 meq PO DAILY [facility] Last Admin: 11/13/18 08:55 Dose: Not Given - Labs Labs: 11/13/18 04:30 11/13/18 08:21 PT 11.8 Seconds (9.8-13.1) 11/05/18 21:00 INR 1.0 11/05/18 21:00 APTT 37.4 Seconds (25.6-37.1) H 11/05/18 21:00 - Constitutional Appears: Non-toxic, Chronically Ill - Head Exam Head Exam: NORMOCEPHALIC - Eye Exam Eye Exam: absent: Scleral icterus - ENT Exam ENT Exam: Mucous Membranes Dry - Neck Exam Neck Exam: absent: Lymphadenopathy - Respiratory Exam Respiratory Exam: Decreased Breath Sounds - Cardiovascular Exam Cardiovascular Exam: REGULAR RHYTHM - GI/Abdominal Exam GI & Abdominal Exam: Distended, Soft - Rectal Exam Rectal Exam: Deferred - Exam Exam: NORMAL INSPECTION - Extremities Exam Extremities Exam: absent: Pedal Edema - Back Exam Back Exam: absent: CVA tenderness (L), CVA tenderness (R) - Neurological Exam Neurological Exam: Alert, Awake, CN II-XII Intact, Oriented x3 - Psychiatric Exam Psychiatric exam: Normal Mood - Skin Skin Exam: Dry Assessment and Plan (1) CHF (congestive heart failure) Status: Acute (2) Dehydration Status: Acute (3) Pneumonia Status: Acute (4) Respiratory failure Status: Acute (5) Sepsis Status: Acute (6) UTI (urinary tract infection) Status: Acute - Assessment and Plan (Free Text) Assessment: cont rx as per Dr Reeves
--- NOTE | 2018-11-13 14:47 | PCM.SURG1 ---
Surgeon's Initial Post Op Note - Surgeon's Notes Surgeon: Sue Fisher MD Front Desk: NONE Type of Anesthesia: Local Pre-Operative Diagnosis: Poor venous access Operative Findings: Left chest pacemaker, Subclavian vein stenosis, mottled right hand. Post-Operative Diagnosis: Poor venous access Operation Performed: Double lumen midline picc placement, 22 cm. Specimen/Specimens Removed: None Estimated Blood Loss: EBL {In ML}: 2 Blood Products Given: N/A Drains Used: No Drains Post-Op Condition: Poor Date of Surgery/Procedure: 11/13/18 Time of Surgery/Procedure: 14:40
--- NOTE | 2018-11-13 16:28 | PN ---
DATE: 11/13/2018 CRITICAL CARE PROGRESS NOTE LOCATION: The patient in ICU bed 422. TIME SPENT: 35 minutes. SUBJECTIVE: The patient is seen, evaluated at the bedside. Case was discussed in multidisciplinary ICU rounds this morning. Past medical, surgical, social and family history reviewed. An 82-year-old female with history significant for diabetes mellitus type 2, hypertension, hypothyroidism, CHF, status post permanent pacemaker insertion and knee surgery, recent admission to [facility] for hypoxic hypercapnic respiratory failure, admitted to subacute rehab center, brought to emergency room at [facility] complaining of change in the mental status. The patient was noted to have hypercapnic hypoxic respiratory failure, intubated and placed on mechanical ventilation. Chest x-ray showed right more than left infiltrate. Subsequently tolerated and extubated on 11/12/2018. Overnight, afebrile, normotensive telemetry sinus rhythm, saturating 98% on 30% Ventimask. This morning alert, awake but slow to respond. Does not follow commands appropriate. PHYSICAL EXAMINATION: VITAL SIGNS: Temperature 97.8, heart rate 97 and regular, blood pressure 144/68, mean arterial pressure 93, saturation 98% on face mask. Intake 2907, output 1700, positive balance 1207. Weight 219 pounds. HEAD, EYES, EARS, NOSE AND THROAT: Pupils reactive. Conjunctivae pink. Sclerae white. NECK. Supple. Trachea central. CHEST: Bilateral breath sounds. Scattered rhonchi. HEART: Rhythm regular. S1, S2 normal intensity. No S3, S4 gallop. No audible murmur. ABDOMEN: Bowel sounds present. Soft. EXTREMITIES: Trace edema right hand with ecchymosis more on the dorsum of the right hand. CURRENT MEDICATIONS: Tylenol 650 mg every 6 p.r.n., albuterol/Atrovent inhalation 3 mL via nebulizer every 6 hours, Coreg 3.125 mg p.o. every 12 hours, Lasix 40 mg IV daily, Accu-Chek with regular insulin coverage, Bacid acidophilus 1 capsule twice daily, Synthroid 37.5 mcg IV push daily, meropenem 1 g IV every 8 hours, Tamiflu 75 mg p.o. twice daily, Protonix EC 40 mg p.o. daily, potassium chloride 20 mEq p.o. daily, vancomycin 500 mg IV every 12 hours. LABORATORY DATA: WBC 2.8, hemoglobin 11.3, hematocrit 36.4, platelet count 146. PT 11.8, INR 1, PTT 37.4. ABG pH 7.4, pCO2 of 58, pO2 of 62. Oxygen saturation 93.7% on FiO2 of 30% Ventimask. SMA-7 sodium 143, potassium 4, chloride 102, CO2 OF 33, blood urea nitrogen 18, creatinine 0.6, random glucose 124, calcium 8.9, phosphorus 3.6, magnesium 2.1. Urinalysis modesta colored, wbc 325. Urine bacteria many hyaline cast, leukocyte esterase negative. Vancomycin trough level 15.2. Serology, influenza A and B negative. Urine Legionella antigen negative. Mycoplasma IgM antibody negative. Microbiology, urine culture positive for E-coli. Sputum culture normal ari. Blood culture no growth. Chest x-ray on 11/12/2018 prior to extubation shows evolving right lower lobe infiltrate. No pneumothorax. IMPRESSION: 1. Neuro: Alert, awake, slow to respond possible underlying dementia, superimposed hypoxic encephalopathy. 2. Pulmonary: Status post hypercapnic hypoxic respiratory failure, extubated on FiO2 of 30%. Repeat blood gas shows increasing pCO2. Plan: Continue bronchodilator every 6 hours. support with BiPAP to reduce work of breathing and to rest respiratory muscles. 3. Cardiac: History of hypertension, congestive heart failure, status post permanent pacemaker insertion. Continue diuretic. 4. Infectious disease: Chest x-ray shows right more than left infiltrates consistent with pneumonia, recently admitted at [facility] for respiratory failure, on meropenem and vancomycin. Vancomycin dose reduced to 500 mg IV every 12. Continue lactobacillus. 5. Hematology Leukopenia stable. Thrombocytopenia improved. Normal hemoglobin, hematocrit. 6. Gastrointestinal: No acute issues noted. 7. Renal: No electrolyte abnormalities. Renal function stable. 8. Endocrinology: History of diabetes. Continue Accu-Chek with regular insulin coverage. Maintain a blood sugar below 180 mg. Keep head of bed at 30 degrees up. The patient currently do not resuscitate. We will discuss with family regarding further plan of care regarding intubation in case if the patient develops hypercapnic respiratory failure. Maco Russell MD [facility] # [id number]
[2018-11-13] MEDS: Potassium Chl 20 mEq in D5-NS 1,000 ML IV SCH (18:18)
[2018-11-14] MEDS: Meropenem 1 GM in Sodium Chloride 0.9% 100 ML IVPB SCH ×3 (00:41→16:38)
[2018-11-14] MEDS: Insulin Lispro (humaLOG) 100 Units/ml Inj SC SCH ×4 (00:42→17:46)
[2018-11-14] MEDS: Albuterol-Ipratrop 3 mg / 0.5 (3 ml) UD INH SCH ×3 (01:06→19:22)
[2018-11-14 06:45] LABS: BASO % 0.3 % (0.0-2.0); EOS # 0.1 K/uL (0.0-0.7); EOS % 3.1 % (0.0-4.0); HEMOGLOBIN 11.2 g/dL (12.0-16.0); LYMPH # 0.7 K/uL (1.0-4.3); LYMPH % 22.8 % (20.0-40.0); MEAN CELL VOLUME 83.8 fl (81.0-99.0); MEAN CORPUSCULAR HEMOGLOBIN 25.7 pg (27.0-31.0); MEAN CORPUSCULAR HGB CONC 30.6 g/dL (33.0-37.0); MEAN PLATELET VOLUME 9.4 fl (7.2-11.7); MONO # 0.5 K/uL (0.0-0.8); MONO % 14.2 % (0.0-10.0); NEUT # 1.9 K/uL (1.8-7.0); NEUT % 59.6 % (50.0-75.0); NRBC % 0.1 % (0.0-0.0); RBC 4.36 Mil/uL (3.80-5.20); RED CELL DISTRIBUTION WIDTH 20.2 % (11.5-14.5); WHITE BLOOD COUNT 3.2 K/uL (4.8-10.8)
[2018-11-14 07:06] LABS: ALB/GLOB RATIO 0.9 (1.0-2.1); ALBUMIN 2.9 g/dL (3.5-5.0); ALT/SGPT 34 U/L (9-52); AST/SGOT 30 U/L (14-36); BLOOD UREA NITROGEN 15 mg/dl (7-17); CALCIUM 8.5 mg/dL (8.4-10.2); GFR NON-AFRICAN AMERICAN > 60
[2018-11-14] MEDS: Lactobacillus Acidophilus 500 MU Cap PO SCH ×2 (08:27→16:40)
[2018-11-14] MEDS: Potassium Chloride 20 mEq ER Tab PO SCH (08:29)
[2018-11-14] MEDS: Pantoprazole 40 mg EC Tab PO SCH (08:33)
[2018-11-14] MEDS: Levothyroxine 100 mcg (0.1 mg) Inj IVP SCH (08:40)
[2018-11-14] MEDS: Oseltamivir 6 MG/ML PO SCH ×2 (08:42→16:41)
--- NOTE | 2018-11-14 11:00 | CP.PCM.PN ---
Subjective - Date & Time of Evaluation Date of Evaluation: 11/14/18 Time of Evaluation: 11:01 - Subjective Subjective: CLINICALLY UNCHANGED EPISODES OF AGITATION DNR PER FAMILY'S REQUEST Objective - Vital Signs/Intake and Output Vital Signs (last 24 hours): Temp Pulse Resp BP Pulse Ox 98.0 F 82 25 H 122/68 97 11/14/18 08:00 11/14/18 08:27 11/14/18 08:00 11/14/18 08:29 11/14/18 08:00 Intake and Output: 11/14/18 11/14/18 06:59 18:59 Intake Total 800 150 Balance 800 150 - Medications Medications: Current Medications Acetaminophen (Tylenol 650mg/20.3ml Solution Ud) 650 mg NG Q6 PRN PRN Reason: fever: temp of > 100.4 F Last Admin: 11/11/18 20:16 Dose: 650 mg Albuterol/Ipratropium (Duoneb 3 Mg/0.5 Mg (3 Ml) Ud) 3 ml INH Q6H [facility] Last Admin: 11/14/18 08:13 Dose: 3 ml Carvedilol (Coreg) 3.125 mg PO Q12 [facility] Last Admin: 11/14/18 08:27 Dose: Not Given Dextrose (Dextrose 50% Inj) 0 ml IV STAT PRN; Protocol PRN Reason: Hypoglycemia Protocol Dextrose (Glutose 15) 0 gm PO ONCE PRN; Protocol PRN Reason: Hypoglycemia Protocol Furosemide (Lasix) 40 mg IV DAILY [facility] Last Admin: 11/14/18 08:29 Dose: 40 mg Glucagon (Glucagen Diagnostic Kit) 0 mg IM STAT PRN; Protocol PRN Reason: Hypoglycemia Protocol Meropenem 1 gm/ Sodium (Chloride) 100 mls @ 100 mls/hr IVPB Q8 [facility]; Protocol Last Admin: 11/14/18 08:32 Dose: 100 mls/hr Vancomycin HCl 500 mg/ Sodium (Chloride) 100 mls @ 100 mls/hr IVPB Q12H [facility]; Protocol Last Admin: 11/14/18 00:40 Dose: 100 mls/hr Potassium Chloride/Dextrose/Sod Cl (Potassium Chl 20 Meq In D5-Ns) 1,000 mls @ 50 mls/hr IV .Q20H [facility] Stop: 11/14/18 16:46 Last Admin: 01/04/19 18:18 Dose: 50 mls/hr Insulin Human Lispro (Humalog) 0 units SC Q6H [facility]; Protocol Last Admin: 11/14/18 06:34 Dose: 1 units Lactobacillus Acidophilus (Bacid Acidophilus) 1 cap PO BID [facility] Last Admin: 11/14/18 08:27 Dose: Not Given Levothyroxine Sodium (Synthroid) 37.5 mcg IVP DAILY [facility] Last Admin: 11/14/18 08:40 Dose: 37.5 mcg Oseltamivir Phosphate (Tamiflu Susp) 75 mg PO BID [facility]; Protocol Last Admin: 11/14/18 08:42 Dose: Not Given Pantoprazole Sodium (Protonix Ec Tab) 40 mg PO DAILY [facility] Last Admin: 11/14/18 08:33 Dose: Not Given Potassium Chloride (K-Dur 20 Meq Er Tab) 20 meq PO DAILY [facility] Last Admin: 11/14/18 08:29 Dose: Not Given - Labs Labs: 11/14/18 06:30 11/14/18 06:30 PT 11.8 Seconds (9.8-13.1) 11/05/18 21:00 INR 1.0 11/05/18 21:00 APTT 37.4 Seconds (25.6-37.1) H 11/05/18 21:00 - Constitutional Appears: Chronically Ill - Head Exam Head Exam: ATRAUMATIC, NORMAL INSPECTION, NORMOCEPHALIC - Eye Exam Eye Exam: EOMI, Normal appearance, PERRL Pupil Exam: NORMAL ACCOMODATION, PERRL - ENT Exam ENT Exam: Mucous Membranes Moist, Normal Exam - Neck Exam Neck Exam: Full ROM, Normal Inspection. absent: Lymphadenopathy - Respiratory Exam Respiratory Exam: Decreased Breath Sounds, Rales, NORMAL BREATHING PATTERN Additional comments: ON 02--SAT 92% - Cardiovascular Exam Cardiovascular Exam: REGULAR RHYTHM, +S1, +S2. absent: Murmur - GI/Abdominal Exam GI & Abdominal Exam: Soft, Normal Bowel Sounds. absent: Tenderness - Rectal Exam Rectal Exam: NORMAL INSPECTION - Extremities Exam Extremities Exam: Full ROM, Normal Capillary Refill, Normal Inspection. absent: Joint Swelling, Pedal Edema - Back Exam Back Exam: NORMAL INSPECTION - Neurological Exam Neurological Exam: Alert, Awake, CN II-XII Intact - Skin Skin Exam: Dry, Intact, Normal Color, Warm Assessment and Plan - Assessment and Plan (Free Text) Assessment: RESP FAILURE PNEUMONIA Plan: CONTINUE CURRENT RX PROGNOSIS IS GUARDED
--- NOTE | 2018-11-14 11:40 | PN ---
DATE: 11/14/2018 SUBJECTIVE: The patient seen and examined. Interim events noted. Consults noted and appreciated. Pulmonary and fishing boat mate intervention noted and appreciated. The patient remains in intensive care unit. . She is tolerating nasal cannula without any respiratory problems. She does cough. . PHYSICAL EXAMINATION: GENERAL: The patient is in no acute distress. VITAL SIGNS: Stable. HEART: S1 and S2 normal and regular. LUNGS: Good bilateral air exchange. Occasional crepitation. ABDOMEN: Soft, nontender. EXTREMITIES: No edema. No calf swelling. No tenderness. No acute ischemia. CENTRAL NERVOUS SYSTEM: Essentially unchanged. DIAGNOSTIC DATA: Available diagnostic data reviewed. Telemetry monitoring shows episodes of tachycardia. ASSESSMENT AND PLAN: Case discussed with the fishing boat mate. Overall, the patient is stable and improving. Plan as ordered. Nakul Zhang MD
--- NOTE | 2018-11-14 12:56 | CP.CCUPN ---
CCU Subjective - Physician Review Events Since Last Encounter (Free Text): 11/14/18 12:55 lying comfortably on the beds, BP stable, Ox sat 100% on 3 L n/c CCU Objective - Vital Signs / Intake & Output Vital Signs (Last 4 hours): Vital Signs Temp Pulse Resp BP Pulse Ox 11/14/18 12:00 97.6 F 92 H 41 H 140/81 97 11/14/18 10:00 88 25 H 111/58 L 95 Intake and Output (Last 8hrs): Intake & Output 11/13/18 11/14/18 11/14/18 22:59 06:59 14:59 Intake Total 350 600 450 Output Total 800 Balance -450 600 450 Intake: IV 250 400 250 Intake, Piggyback 100 200 200 Output: Urine 800 Urine, Voided 800 Other: # Bowel Movements 1 - Physical Exam Narrative Physical Exam (Free Text): 11/14/18 12:55 P/E: Neck: No JVd Lungs: no ronchi, crackles Abdomen: soft, non-tender EXt; No edema Heart: no gallop Head: Positive for: Atraumatic Pupils: Positive for: PERRL. Negative for: Non-Reactive, Pinpoint Extroacular Muscles: Positive for: EOMI. Negative for: Gaze Palsy Conjunctiva: Positive for: Normal. Negative for: Injected, Icteric Mouth: Positive for: Moist Mucous Membranes Pharnyx: Positive for: Normal Nose (Internal): Positive for: Normal Inspection Respiratory/Chest: Positive for: Decreased Breath Sounds (in the lower lobes b/l ), Other (course breath sounds, crackles in the R>L ). Negative for: Clear to Auscultation Cardiovascular: Positive for: Regular Rate and Rhythm, Normal S1, S2, Peripheal Pulses Present. Negative for: Murmurs, Irregular Rhythm, Tachycardic, Bradyc ardic Abdomen: Positive for: Other (obese ). Negative for: Tenderness, Guarding Genitourinary/Pelvic Exam: Positive for: Other ([place] draining yellow urine ) Upper Extremity: Positive for: Edema, Other (moving b/l upper ext when stimulated. Mild edema of the hands b/l ) Lower Extremity: Positive for: Other (mild edema, scds on, moving both ext ) Psychiatric: Positive for: Alert - Medications Active Medications: Active Medications Generic Name Dose Route Start Last Admin Trade Name Freq PRN Reason Stop Dose Admin Acetaminophen 650 mg 11/09/18 14:15 11/11/18 20:16 Tylenol 650mg/20.3ml Solution Ud NG 650 mg Q6 PRN Administration fever: temp of > 100.4 F Albuterol/Ipratropium 3 ml 11/11/18 08:00 11/14/18 08:13 Duoneb 3 Mg/0.5 Mg (3 Ml) Ud INH 3 ml Q6H JEANA Administration Carvedilol 3.125 mg 11/06/18 09:00 11/14/18 08:27 Coreg PO Not Given Q12 JEANA Dextrose 0 ml 11/06/18 08:46 Dextrose 50% Inj IV STAT PRN Hypoglycemia Protocol Protocol Dextrose 0 gm 11/06/18 08:46 Glutose 15 PO ONCE PRN Hypoglycemia Protocol Protocol Furosemide 40 mg 11/11/18 13:15 11/14/18 08:29 Lasix IV 40 mg DAILY JEANA Administration Glucagon 0 mg 11/06/18 08:46 Glucagen Diagnostic Kit IM STAT PRN Hypoglycemia Protocol Protocol Meropenem 1 gm/ Sodium 100 mls @ 100 mls/hr 11/09/18 17:00 11/14/18 08:32 Chloride IVPB 100 mls/hr Q8 JEANA Administration Protocol Vancomycin HCl 500 mg/ Sodium 100 mls @ 100 mls/hr 11/13/18 11:45 11/14/18 11:23 Chloride IVPB 100 mls/hr Q12H JEANA Administration Protocol Potassium Chloride/Dextrose/Sod Cl 1,000 mls @ 50 mls/hr 11/13/18 17:00 11/13/18 18:18 Potassium Chl 20 Meq In D5-Ns IV 11/14/18 16:46 50 mls/hr .Q20H JEANA Administration Insulin Human Lispro 0 units 11/06/18 00:15 11/14/18 12:11 Humalog SC Not Given Q6H JEANA Protocol Lactobacillus Acidophilus 1 cap 11/06/18 17:00 11/14/18 08:27 Bacid Acidophilus PO Not Given BID JEANA Levothyroxine Sodium 37.5 mcg 11/07/18 09:00 11/14/18 08:40 Synthroid IVP 37.5 mcg DAILY JEANA Administration Oseltamivir Phosphate 75 mg 11/09/18 17:00 11/14/18 08:42 Tamiflu Susp PO Not Given BID JEANA Protocol Pantoprazole Sodium 40 mg 11/06/18 09:00 11/14/18 08:33 Protonix Ec Tab PO Not Given DAILY JEANA Potassium Chloride 20 meq 11/07/18 09:00 11/14/18 08:29 K-Dur 20 Meq Er Tab PO Not Given DAILY JEANA - Patient Studies Lab Studies: Microbiology Studies 11/09/18 09:14 Blood Culture - Final Blood-Venous NO GROWTH AFTER 5 DAYS Gram Stain - Final TEST NOT PERFORMED Lab Studies 11/14/18 11/14/18 11/14/18 Range/Units 11:17 06:30 06:30 WBC (4.8-10.8) K/uL RBC (3.80-5.20) Mil/uL Hgb (12.0-16.0) g/dL Hct (34.0-47.0) % MCV (81.0-99.0) fl MCH (27.0-31.0) pg MCHC (33.0-37.0) g/dL RDW (11.5-14.5) % Plt Count (130-400) K/uL MPV (7.2-11.7) fl Neut % (Auto) (50.0-75.0) % Lymph % (Auto) (20.0-40.0) % [place] % (Auto) (0.0-10.0) % Eos % (Auto) (0.0-4.0) % Baso % (Auto) (0.0-2.0) % Neut # (Auto) (1.8-7.0) K/uL Lymph # (Auto) (1.0-4.3) K/uL [place] # (Auto) (0.0-0.8) K/uL Eos # (Auto) (0.0-0.7) K/uL Baso # (Auto) (0.0-0.2) K/uL Sodium 145 (132-148) mmol/l Potassium 3.6 (3.6-5.0) MMOL/L Chloride 104 (98-107) mmol/L Carbon Dioxide 34 H (22-30) mmol/L Anion Gap 11 (10-20) BUN 15 (7-17) mg/dl Creatinine 0.6 L (0.7-1.2) mg/dl Est GFR ( Amer) > 60 Est GFR (Non-Af Amer) > 60 POC Glucose (mg/dL) 137 H (65-110) mg/dL Random Glucose 145 H (65-105) mg/dL Calcium 8.5 (8.4-10.2) mg/dL Phosphorus 3.3 (2.5-4.5) mg/dl Magnesium 1.9 (1.6-2.3) MG/DL Total Bilirubin 0.5 (0.2-1.3) mg/dl AST 30 (14-36) U/L ALT 34 (9-52) U/L Alkaline Phosphatase 63 (38-126) U/L Total Protein 6.0 L (6.3-8.2) G/DL Albumin 2.9 L (3.5-5.0) g/dL Globulin 3.1 (2.2-3.9) gm/dL Albumin/Globulin Ratio 0.9 L (1.0-2.1) Vancomycin Trough 23.7 H (5.0-10.0) ug/mL 11/14/18 11/14/18 11/13/18 Range/Units 06:30 04:56 21:14 WBC 3.2 L (4.8-10.8) K/uL RBC 4.36 (3.80-5.20) Mil/uL Hgb 11.2 L (12.0-16.0) g/dL Hct 36.5 (34.0-47.0) % MCV 83.8 (81.0-99.0) fl MCH 25.7 L (27.0-31.0) pg MCHC 30.6 L (33.0-37.0) g/dL RDW 20.2 H (11.5-14.5) % Plt Count 207 (130-400) K/uL MPV 9.4 (7.2-11.7) fl Neut % (Auto) 59.6 (50.0-75.0) % Lymph % (Auto) 22.8 (20.0-40.0) % [place] % (Auto) 14.2 H (0.0-10.0) % Eos % (Auto) 3.1 (0.0-4.0) % Baso % (Auto) 0.3 (0.0-2.0) % Neut # (Auto) 1.9 (1.8-7.0) K/uL Lymph # (Auto) 0.7 L (1.0-4.3) K/uL [place] # (Auto) 0.5 (0.0-0.8) K/uL Eos # (Auto) 0.1 (0.0-0.7) K/uL Baso # (Auto) 0.0 (0.0-0.2) K/uL Sodium (132-148) mmol/l Potassium (3.6-5.0) MMOL/L Chloride (98-107) mmol/L Carbon Dioxide (22-30) mmol/L Anion Gap (10-20) BUN (7-17) mg/dl Creatinine (0.7-1.2) mg/dl Est GFR ( Amer) Est GFR (Non-Af Amer) POC Glucose (mg/dL) 159 H 134 H (65-110) mg/dL Random Glucose (65-105) mg/dL Calcium (8.4-10.2) mg/dL Phosphorus (2.5-4.5) mg/dl Magnesium (1.6-2.3) MG/DL Total Bilirubin (0.2-1.3) mg/dl AST (14-36) U/L ALT (9-52) U/L Alkaline Phosphatase (38-126) U/L Total Protein (6.3-8.2) G/DL Albumin (3.5-5.0) g/dL Globulin (2.2-3.9) gm/dL Albumin/Globulin Ratio (1.0-2.1) Vancomycin Trough (5.0-10.0) ug/mL 11/13/18 Range/Units 16:44 WBC (4.8-10.8) K/uL RBC (3.80-5.20) Mil/uL Hgb (12.0-16.0) g/dL Hct (34.0-47.0) % MCV (81.0-99.0) fl MCH (27.0-31.0) pg MCHC (33.0-37.0) g/dL RDW (11.5-14.5) % Plt Count (130-400) K/uL MPV (7.2-11.7) fl Neut % (Auto) (50.0-75.0) % Lymph % (Auto) (20.0-40.0) % [place] % (Auto) (0.0-10.0) % Eos % (Auto) (0.0-4.0) % Baso % (Auto) (0.0-2.0) % Neut # (Auto) (1.8-7.0) K/uL Lymph # (Auto) (1.0-4.3) K/uL [place] # (Auto) (0.0-0.8) K/uL Eos # (Auto) (0.0-0.7) K/uL Baso # (Auto) (0.0-0.2) K/uL Sodium (132-148) mmol/l Potassium (3.6-5.0) MMOL/L Chloride (98-107) mmol/L Carbon Dioxide (22-30) mmol/L Anion Gap (10-20) BUN (7-17) mg/dl Creatinine (0.7-1.2) mg/dl Est GFR ( Amer) Est GFR (Non-Af Amer) POC Glucose (mg/dL) 118 H (65-110) mg/dL Random Glucose (65-105) mg/dL Calcium (8.4-10.2) mg/dL Phosphorus (2.5-4.5) mg/dl Magnesium (1.6-2.3) MG/DL Total Bilirubin (0.2-1.3) mg/dl AST (14-36) U/L ALT (9-52) U/L Alkaline Phosphatase (38-126) U/L Total Protein (6.3-8.2) G/DL Albumin (3.5-5.0) g/dL Globulin (2.2-3.9) gm/dL Albumin/Globulin Ratio (1.0-2.1) Vancomycin Trough (5.0-10.0) ug/mL Laboratory Results - last 24 hr 11/13/18 11/13/18 11/14/18 16:44 21:14 04:56 WBC RBC Hgb Hct MCV MCH MCHC RDW Plt Count MPV Neut % (Auto) Lymph % (Auto) [place] % (Auto) Eos % (Auto) Baso % (Auto) Neut # (Auto) Lymph # (Auto) [place] # (Auto) Eos # (Auto) Baso # (Auto) Sodium Potassium Chloride Carbon Dioxide Anion Gap BUN Creatinine Est GFR ( Amer) Est GFR (Non-Af Amer) POC Glucose (mg/dL) 118 H 134 H 159 H Random Glucose Calcium Phosphorus Magnesium Total Bilirubin AST ALT Alkaline Phosphatase Total Protein Albumin Globulin Albumin/Globulin Ratio Vancomycin Trough 11/14/18 11/14/18 11/14/18 06:30 06:30 06:30 WBC 3.2 L RBC 4.36 Hgb 11.2 L Hct 36.5 MCV 83.8 MCH 25.7 L MCHC 30.6 L RDW 20.2 H Plt Count 207 MPV 9.4 Neut % (Auto) 59.6 Lymph % (Auto) 22.8 [place] % (Auto) 14.2 H Eos % (Auto) 3.1 Baso % (Auto) 0.3 Neut # (Auto) 1.9 Lymph # (Auto) 0.7 L [place] # (Auto) 0.5 Eos # (Auto) 0.1 Baso # (Auto) 0.0 Sodium 145 Potassium 3.6 Chloride 104 Carbon Dioxide 34 H Anion Gap 11 BUN 15 Creatinine 0.6 L Est GFR ( Amer) > 60 Est GFR (Non-Af Amer) > 60 POC Glucose (mg/dL) Random Glucose 145 H Calcium 8.5 Phosphorus 3.3 Magnesium 1.9 Total Bilirubin 0.5 AST 30 ALT 34 Alkaline Phosphatase 63 Total Protein 6.0 L Albumin 2.9 L Globulin 3.1 Albumin/Globulin Ratio 0.9 L Vancomycin Trough 23.7 H 11/14/18 11:17 WBC RBC Hgb Hct MCV MCH MCHC RDW Plt Count MPV Neut % (Auto) Lymph % (Auto) [place] % (Auto) Eos % (Auto) Baso % (Auto) Neut # (Auto) Lymph # (Auto) [place] # (Auto) Eos # (Auto) Baso # (Auto) Sodium Potassium Chloride Carbon Dioxide Anion Gap BUN Creatinine Est GFR ( Amer) Est GFR (Non-Af Amer) POC Glucose (mg/dL) 137 H Random Glucose Calcium Phosphorus Magnesium Total Bilirubin AST ALT Alkaline Phosphatase Total Protein Albumin Globulin Albumin/Globulin Ratio Vancomycin Trough Fingerstick Blood Sugar Results: 137 Assessment/Plan - Assessment and Plan (Free Text) Assessment: Resp Failure: improved PNA Influenza Rt pleural effusion DM CHF: copensated Plan: Contiue current meds, including Tamiflu, after swallow eval Pt is hemodynamically, stable, no respiratory issue now, Will transfer to tele.
[2018-11-14] MEDS: Potassium Chl 20 mEq in D5-NS 1,000 ML IV SCH (15:21)
[2018-11-15] MEDS: Insulin Lispro (humaLOG) 100 Units/ml Inj SC SCH ×4 (00:26→17:53)
[2018-11-15] MEDS: Albuterol-Ipratrop 3 mg / 0.5 (3 ml) UD INH SCH ×4 (01:02→19:30)
[2018-11-15 06:50] LABS: HEMOGLOBIN 11.4 g/dL (12.0-16.0); MEAN CELL VOLUME 81.7 fl (81.0-99.0); MEAN CORPUSCULAR HEMOGLOBIN 25.8 pg (27.0-31.0); MEAN CORPUSCULAR HGB CONC 31.5 g/dL (33.0-37.0); RBC 4.44 Mil/uL (3.80-5.20); RED CELL DISTRIBUTION WIDTH 19.8 % (11.5-14.5); WHITE BLOOD COUNT 4.5 K/uL (4.8-10.8)
[2018-11-15 07:06] LABS: ALB/GLOB RATIO 0.9 (1.0-2.1); ALBUMIN 2.9 g/dL (3.5-5.0); ALT/SGPT 41 U/L (9-52); AST/SGOT 44 U/L (14-36); BLOOD UREA NITROGEN 14 mg/dl (7-17); CALCIUM 8.6 mg/dL (8.4-10.2); GFR NON-AFRICAN AMERICAN > 60
[2018-11-15] MEDS: Potassium Chloride 20 mEq ER Tab PO SCH (09:08)
[2018-11-15] MEDS: Levothyroxine 100 mcg (0.1 mg) Inj IVP SCH (09:10)
[2018-11-15] MEDS: Pantoprazole 40 mg EC Tab PO SCH (09:10)
[2018-11-15] MEDS: Lactobacillus Acidophilus 500 MU Cap PO SCH ×2 (09:13→17:56)
[2018-11-15] MEDS: Oseltamivir 6 MG/ML PO SCH (09:14)
--- NOTE | 2018-11-15 09:36 | PN ---
DATE: 11/15/2018 SUBJECTIVE: The patient seen and examined. Interim events noted. Consults noted and appreciated. Pulmonary and breast buffer intervention noted and appreciated. The patient now is in progressive care unit with telemetry monitoring and is out of ICU. The patient is awake, responsive, feels okay. Denies any chest pain or shortness of breath. Also, the patient is not such a good historian. PHYSICAL EXAMINATION: GENERAL: The patient is in no acute distress. VITAL SIGNS: Stable. HEART: S1 and S2 are normal and regular. LUNGS: Bilateral air exchange. ABDOMEN: Soft and nontender. EXTREMITIES: No edema. No calf swelling. No tenderness. No acute ischemia. CENTRAL NERVOUS SYSTEM: Exam essentially unchanged. DIAGNOSTIC DATA: Available diagnostic data reviewed. Telemetry monitoring does not reveal significant arrhythmia. ASSESSMENT AND PLAN: Overall, the patient's general medical condition is stable and improving. Plan as ordered. Nakul Zhang MD
--- NOTE | 2018-11-15 10:45 | CP.PCM.PN ---
Subjective - Date & Time of Evaluation Date of Evaluation: 11/15/18 Time of Evaluation: 10:45 - Subjective Subjective: AWAKE AND ALERT SOB IMPROVED TRANSFERRED TO TELEMETRY TOLERATED DIET STILL WEAK Objective - Vital Signs/Intake and Output Vital Signs (last 24 hours): Temp Pulse Resp BP Pulse Ox 97.8 F 92 H 20 193/78 H 95 11/15/18 07:44 11/15/18 09:05 11/15/18 07:44 11/15/18 09:08 11/15/18 07:44 - Medications Medications: Current Medications Acetaminophen (Tylenol 650mg/20.3ml Solution Ud) 650 mg NG Q6 PRN PRN Reason: fever: temp of > 100.4 F Last Admin: 11/11/18 20:16 Dose: 650 mg Albuterol/Ipratropium (Duoneb 3 Mg/0.5 Mg (3 Ml) Ud) 3 ml INH Q6H JEANA Last Admin: 11/15/18 08:01 Dose: 3 ml Carvedilol (Coreg) 3.125 mg PO Q12 JEANA Last Admin: 11/15/18 09:05 Dose: 3.125 mg Dextrose (Dextrose 50% Inj) 0 ml IV STAT PRN; Protocol PRN Reason: Hypoglycemia Protocol Dextrose (Glutose 15) 0 gm PO ONCE PRN; Protocol PRN Reason: Hypoglycemia Protocol Furosemide (Lasix) 40 mg IV DAILY JEANA Last Admin: 11/15/18 09:08 Dose: 40 mg Glucagon (Glucagen Diagnostic Kit) 0 mg IM STAT PRN; Protocol PRN Reason: Hypoglycemia Protocol Vancomycin HCl 500 mg/ Sodium (Chloride) 100 mls @ 100 mls/hr IVPB Q12H JEANA; P rotocol Last Admin: 11/14/18 23:32 Dose: 100 mls/hr Insulin Human Lispro (Humalog) 0 units SC Q6H JEANA; Protocol Last Admin: 11/15/18 06:06 Dose: Not Given Lactobacillus Acidophilus (Bacid Acidophilus) 1 cap PO BID JEANA Last Admin: 11/15/18 09:13 Dose: 1 cap Levothyroxine Sodium (Synthroid) 37.5 mcg IVP DAILY JEANA Last Admin: 11/15/18 09:10 Dose: 37.5 mcg Oseltamivir Phosphate (Tamiflu Susp) 75 mg PO BID JEANA; Protocol Last Admin: 11/15/18 09:14 Dose: 75 mg Pantoprazole Sodium (Protonix Ec Tab) 40 mg PO DAILY [facility] Last Admin: 11/15/18 09:10 Dose: 40 mg Potassium Chloride (K-Dur 20 Meq Er Tab) 20 meq PO DAILY [facility] Last Admin: 11/15/18 09:08 Dose: 20 meq - Labs Labs: 11/15/18 05:20 11/15/18 05:20 PT 11.8 Seconds (9.8-13.1) 11/05/18 21:00 INR 1.0 11/05/18 21:00 APTT 37.4 Seconds (25.6-37.1) H 11/05/18 21:00 - Constitutional Appears: Chronically Ill - Head Exam Head Exam: ATRAUMATIC, NORMAL INSPECTION, NORMOCEPHALIC - Eye Exam Eye Exam: EOMI, Normal appearance, PERRL Pupil Exam: NORMAL ACCOMODATION, PERRL - ENT Exam ENT Exam: Mucous Membranes Moist, Normal Exam - Neck Exam Neck Exam: Full ROM, Normal Inspection. absent: Lymphadenopathy - Respiratory Exam Respiratory Exam: Prolonged Expiratory Phase, Rales, NORMAL BREATHING PATTERN - Cardiovascular Exam Cardiovascular Exam: REGULAR RHYTHM, +S1, +S2. absent: Murmur - GI/Abdominal Exam GI & Abdominal Exam: Soft, Normal Bowel Sounds. absent: Tenderness - Rectal Exam Rectal Exam: NORMAL INSPECTION - Extremities Exam Extremities Exam: Full ROM, Normal Capillary Refill, Normal Inspection. absent: Joint Swelling, Pedal Edema - Back Exam Back Exam: NORMAL INSPECTION - Neurological Exam Neurological Exam: Alert, Awake, CN II-XII Intact - Psychiatric Exam Psychiatric exam: Normal Affect, Normal Mood - Skin Skin Exam: Dry, Intact, Normal Color, Warm Assessment and Plan - Assessment and Plan (Free Text) Assessment: RESPIRATORY FAILURE WITH PNEUMONIA IMPROVING Plan: CONTINUE CURRENT RX
--- NOTE | 2018-11-15 11:15 | RAD ---
Date of service: 11/15/2018 PROCEDURE: CHEST RADIOGRAPH, 1 VIEW HISTORY: PNEUMONIA COMPARISON: 11/12/2018 FINDINGS: LUNGS: Right lower lobe infiltrate. PLEURA: No pneumothorax or pleural fluid seen. CARDIOVASCULAR: Aortic calcifications. Pacemaker leads in place. OSSEOUS STRUCTURES: No significant abnormalities. VISUALIZED UPPER ABDOMEN: Normal. OTHER FINDINGS: None. IMPRESSION: Right lower lobe infiltrate.
--- NOTE | 2018-11-15 12:55 | CP.PCM.PN ---
Subjective - Date & Time of Evaluation Date of Evaluation: 11/15/18 Time of Evaluation: 09:00 - Subjective Subjective: awake alert nad afebrile Objective - Vital Signs/Intake and Output Vital Signs (last 24 hours): Temp Pulse Resp BP Pulse Ox 98.2 F 90 20 126/65 92 L 11/15/18 11:57 11/15/18 11:57 11/15/18 11:57 11/15/18 11:57 11/15/18 11:57 - Medications Medications: Current Medications Acetaminophen (Tylenol 650mg/20.3ml Solution Ud) 650 mg NG Q6 PRN PRN Reason: fever: temp of > 100.4 F Last Admin: 11/11/18 20:16 Dose: 650 mg Albuterol/Ipratropium (Duoneb 3 Mg/0.5 Mg (3 Ml) Ud) 3 ml INH Q6H JEANA Last Admin: 11/15/18 08:01 Dose: 3 ml Carvedilol (Coreg) 3.125 mg PO Q12 JEANA Last Admin: 11/15/18 09:05 Dose: 3.125 mg Dextrose (Dextrose 50% Inj) 0 ml IV STAT PRN; Protocol PRN Reason: Hypoglycemia Protocol Dextrose (Glutose 15) 0 gm PO ONCE PRN; Protocol PRN Reason: Hypoglycemia Protocol Furosemide (Lasix) 40 mg IV DAILY JEANA Last Admin: 11/15/18 09:08 Dose: 40 mg Glucagon (Glucagen Diagnostic Kit) 0 mg IM STAT PRN; Protocol PRN Reason: Hypoglycemia Protocol Vancomycin HCl 500 mg/ Sodium (Chloride) 100 mls @ 100 mls/hr IVPB Q12H JEANA; Protocol Last Admin: 11/14/18 23:32 Dose: 100 mls/hr Insulin Human Lispro (Humalog) 0 units SC Q6H JEANA; Protocol Last Admin: 11/15/18 06:06 Dose: Not Given Lactobacillus Acidophilus (Bacid Acidophilus) 1 cap PO BID JEANA Last Admin: 11/15/18 09:13 Dose: 1 cap Levothyroxine Sodium (Synthroid) 37.5 mcg IVP DAILY [facility]EANA Last Admin: 11/15/18 09:10 Dose: 37.5 mcg Oseltamivir Phosphate (Tamiflu Susp) 75 mg PO BID JEANA; Protocol Last Admin: 11/15/18 09:14 Dose: 75 mg Pantoprazole Sodium (Protonix Ec Tab) 40 mg PO DAILY [facility] Last Admin: 11/15/18 09:10 Dose: 40 mg Potassium Chloride (K-Dur 20 Meq Er Tab) 20 meq PO DAILY [facility] Last Admin: 11/15/18 09:08 Dose: 20 meq - Labs Labs: 11/15/18 05:20 11/15/18 05:20 PT 11.8 Seconds (9.8-13.1) 11/05/18 21:00 INR 1.0 11/05/18 21:00 APTT 37.4 Seconds (25.6-37.1) H 11/05/18 21:00 - Constitutional Appears: Non-toxic, Chronically Ill - Head Exam Head Exam: NORMOCEPHALIC - Eye Exam Eye Exam: absent: Scleral icterus - ENT Exam ENT Exam: Mucous Membranes Dry - Neck Exam Neck Exam: absent: Lymphadenopathy - Respiratory Exam Respiratory Exam: Decreased Breath Sounds, Rhonchi - Cardiovascular Exam Cardiovascular Exam: REGULAR RHYTHM, +S1, +S2 - GI/Abdominal Exam GI & Abdominal Exam: Distended, Soft. absent: Tenderness - Rectal Exam Rectal Exam: Deferred - Exam Exam: NORMAL INSPECTION - Extremities Exam Extremities Exam: absent: Pedal Edema - Back Exam Back Exam: absent: CVA tenderness (L), CVA tenderness (R) - Neurological Exam Neurological Exam: Alert, Awake - Psychiatric Exam Psychiatric exam: Depressed - Skin Skin Exam: Dry Assessment and Plan (1) CHF (congestive heart failure) Status: Acute (2) Dehydration Status: Acute (3) Pneumonia Status: Acute (4) Respiratory failure Status: Acute (5) Sepsis Status: Acute (6) UTI (urinary tract infection) Status: Acute - Assessment and Plan (Free Text) Assessment: cont iv antibiotics PT/OT follow up CXR
[2018-11-15] MEDS: Meropenem 1 GM in Sodium Chloride 0.9% 100 ML IVPB SCH ×2 (13:16→17:56)
[2018-11-16] MEDS: Insulin Lispro (humaLOG) 100 Units/ml Inj SC SCH ×5 (00:48→22:23)
[2018-11-16] MEDS: Meropenem 1 GM in Sodium Chloride 0.9% 100 ML IVPB SCH ×3 (00:59→17:03)
[2018-11-16] MEDS: Albuterol-Ipratrop 3 mg / 0.5 (3 ml) UD INH SCH ×4 (01:05→19:51)
--- NOTE | 2018-11-16 08:18 | CP.PCM.PN ---
Subjective - Date & Time of Evaluation Date of Evaluation: 11/16/18 Time of Evaluation: 08:21 - Subjective Subjective: LESS AGITATED VSS SOB IMPROVED Objective - Vital Signs/Intake and Output Vital Signs (last 24 hours): Temp Pulse Resp BP Pulse Ox 97.8 F 95 H 20 128/71 96 11/16/18 07:56 11/16/18 07:56 11/16/18 07:56 11/16/18 07:56 11/16/18 07:56 - Medications Medications: Current Medications Acetaminophen (Tylenol 650mg/20.3ml Solution Ud) 650 mg NG Q6 PRN PRN Reason: fever: temp of > 100.4 F Last Admin: 11/11/18 20:16 Dose: 650 mg Albuterol/Ipratropium (Duoneb 3 Mg/0.5 Mg (3 Ml) Ud) 3 ml INH Q6H [facility]EANA Last Admin: 11/16/18 07:21 Dose: 3 ml Carvedilol (Coreg) 3.125 mg PO Q12 [facility]EANA Last Admin: 11/15/18 22:12 Dose: Not Given Dextrose (Dextrose 50% Inj) 0 ml IV STAT PRN; Protocol PRN Reason: Hypoglycemia Protocol Dextrose (Glutose 15) 0 gm PO ONCE PRN; Protocol PRN Reason: Hypoglycemia Protocol Furosemide (Lasix) 40 mg IV DAILY [facility] Last Admin: 11/15/18 09:08 Dose: 40 mg Glucagon (Glucagen Diagnostic Kit) 0 mg IM STAT PRN; Protocol PRN Reason: Hypoglycemia Protocol Meropenem 1 gm/ Sodium (Chloride) 100 mls @ 100 mls/hr IVPB Q8 [facility]; Protocol Last Admin: 11/16/18 00:59 Dose: 100 mls/hr Insulin Human Lispro (Humalog) 0 units SC ACHS JEANA; Protocol Last Admin: 11/16/18 06:31 Dose: Not Given Lactobacillus Acidophilus (Bacid Acidophilus) 1 cap PO BID [facility] Last Admin: 11/15/18 17:56 Dose: 1 cap Levothyroxine Sodium (Synthroid) 37.5 mcg IVP DAILY [facility] Last Admin: 11/15/18 09:10 Dose: 37.5 mcg Pantoprazole Sodium (Protonix Ec Tab) 40 mg PO DAILY [facility] Last Admin: 11/15/18 09:10 Dose: 40 mg Potassium Chloride (K-Dur 20 Meq Er Tab) 20 meq PO DAILY [facility] Last Admin: 11/15/18 09:08 Dose: 20 meq - Labs Labs: 11/15/18 05:20 11/15/18 05:20 PT 11.8 Seconds (9.8-13.1) 11/05/18 21:00 INR 1.0 11/05/18 21:00 APTT 37.4 Seconds (25.6-37.1) H 11/05/18 21:00 - Constitutional Appears: Chronically Ill - Head Exam Head Exam: ATRAUMATIC, NORMAL INSPECTION, NORMOCEPHALIC - Eye Exam Eye Exam: EOMI, Normal appearance, PERRL Pupil Exam: NORMAL ACCOMODATION, PERRL - ENT Exam ENT Exam: Mucous Membranes Moist, Normal Exam - Neck Exam Neck Exam: Full ROM, Normal Inspection. absent: Lymphadenopathy - Respiratory Exam Respiratory Exam: Prolonged Expiratory Phase, Rales, NORMAL BREATHING PATTERN - Cardiovascular Exam Cardiovascular Exam: REGULAR RHYTHM, +S1, +S2. absent: Murmur - GI/Abdominal Exam GI & Abdominal Exam: Soft, Normal Bowel Sounds. absent: Tenderness - Rectal Exam Rectal Exam: NORMAL INSPECTION - Extremities Exam Extremities Exam: Full ROM, Normal Capillary Refill, Normal Inspection. absent: Joint Swelling, Pedal Edema - Back Exam Back Exam: NORMAL INSPECTION - Neurological Exam Neurological Exam: Alert, Awake, CN II-XII Intact, Oriented x3 - Psychiatric Exam Psychiatric exam: Normal Affect, Normal Mood - Skin Skin Exam: Dry, Intact, Normal Color, Warm Assessment and Plan - Assessment and Plan (Free Text) Assessment: RESPIRATORY FAILURE IMPROVED PNEUMONIA GENERAL DEBILITY Plan: CONTINUE CURRENT RX SERIAL CXRS TO EVALUATE PROGRESS OF PNEUMONIA
--- NOTE | 2018-11-16 08:48 | CP.PCM.CON ---
History of Present Illness - History of Present Illness History of Present Illness: Psychiatry consult note CC: Agitation HPI: 82 yo female w/ h/o CHF, HTN, DM, hypothyroidism, admitted w/ hypoxemia and hypercarbia, was intubated, now extubated. History obtained from chart. Patient was arousable, but is lethargic, falls back to sleep and does not answer any questions even when she is awake. Patient has periods of agitation and confusion and continues to have AMS. Past Med Hx: CHF, HTN, DM, hypothyroidism Past Surg Hx: Pacemaker insertion, knee surgery Social Hx: as per chart: no smoking, no drugs, no alcohol, Residing at [facility] living Family Hx: unknown Allergies: ibuprofen Impression: 82 yo female w/ AMS and periods of agitation due to acute delirium. -Recommend to avoid benzodiazepines as they will likely increase confusion and agitation -If patient becomes acutely aggressive or agitated can give Haldol 0.5 mg PO/IM Q6HR PRN Agitation -If patient has late day confusion ("sun-downing"), can start patient on Risperdal 0.5 mg M-tablet Daily@1500 Past Patient History - Infectious Disease Hx of Infectious Diseases: None - Past Medical History & Family History Past Medical History?: Yes - Past Social History Smoking Status: Never Smoked - CARDIAC Hx Congestive Heart Failure: Yes Hx Hypertension: Yes Hx Pacemaker: Yes Other/Comment: AV dual pacemaker - PULMONARY Hx Respiratory Disorders: No - NEUROLOGICAL Hx Neurological Disorder: No - HEENT Hx HEENT Problems: No - RENAL Hx Chronic Kidney Disease: No - ENDOCRINE/METABOLIC Hx Diabetes Insipidus: Yes Hx Hypothyroidism: Yes - HEMATOLOGICAL/ONCOLOGICAL Hx Blood Disorders: No - INTEGUMENTARY Hx Dermatological Problems: No - MUSCULOSKELETAL/RHEUMATOLOGICAL Hx Musculoskeletal Disorders: No Hx Falls: No - GASTROINTESTINAL Hx Diverticulitis: Yes Hx Gastroesophageal Reflux: Yes - GENITOURINARY/GYNECOLOGICAL Hx Genitourinary Disorders: No - PSYCHIATRIC Hx Psychophysiologic Disorder: No Hx Substance Use: No - SURGICAL HISTORY Hx Orthopedic Surgery: Yes Other/Comment: Pacemaker insertion - ANESTHESIA Hx Anesthesia: Yes Meds Allergies/Adverse Reactions: Allergies Allergy/AdvReac Type Severity Reaction Status Date / Time ibuprofen [From Advil] Allergy RASH Verified 11/05/18 20:31 - Medications Medications: Current Medications Acetaminophen (Tylenol 650mg/20.3ml Solution Ud) 650 mg NG Q6 PRN PRN Reason: fever: temp of > 100.4 F Last Admin: 11/11/18 20:16 Dose: 650 mg Albuterol/Ipratropium (Duoneb 3 Mg/0.5 Mg (3 Ml) Ud) 3 ml INH Q6H [facility] Last Admin: 11/16/18 07:21 Dose: 3 ml Carvedilol (Coreg) 3.125 mg PO Q12 [facility] Last Admin: 11/15/18 22:12 Dose: Not Given Dextrose (Dextrose 50% Inj) 0 ml IV STAT PRN; Protocol PRN Reason: Hypoglycemia Protocol Dextrose (Glutose 15) 0 gm PO ONCE PRN; Protocol PRN Reason: Hypoglycemia Protocol Furosemide (Lasix) 40 mg IV DAILY [facility] Last Admin: 11/15/18 09:08 Dose: 40 mg Glucagon (Glucagen Diagnostic Kit) 0 mg IM STAT PRN; Protocol PRN Reason: Hypoglycemia Protocol Meropenem 1 gm/ Sodium (Chloride) 100 mls @ 100 mls/hr IVPB Q8 [facility]; Protocol Last Admin: 11/16/18 00:59 Dose: 100 mls/hr Insulin Human Lispro (Humalog) 0 units SC ACHS [facility]; Protocol Last Admin: 11/16/18 06:31 Dose: Not Given Lactobacillus Acidophilus (Bacid Acidophilus) 1 cap PO BID [facility] Last Admin: 11/15/18 17:56 Dose: 1 cap Levothyroxine Sodium (Synthroid) 37.5 mcg IVP DAILY [facility] Last Admin: 11/15/18 09:10 Dose: 37.5 mcg Pantoprazole Sodium (Protonix Ec Tab) 40 mg PO DAILY [facility] Last Admin: 11/15/18 09:10 Dose: 40 mg Potassium Chloride (K-Dur 20 Meq Er Tab) 20 meq PO DAILY [facility] Last Admin: 11/15/18 09:08 Dose: 20 meq Results - Vital Signs Recent Vital Signs: Last Vital Signs Temp 97.8 F 11/16/18 07:56 Pulse 95 H 11/16/18 07:56 Resp 20 11/16/18 07:56 BP 128/71 11/16/18 07:56 Pulse Ox 96 11/16/18 07:56 - Labs Result Diagrams: 11/15/18 05:20 11/15/18 05:20 Labs: Laboratory Results - last 24 hr 11/15/18 11/15/18 11/16/18 10:51 16:33 00:23 POC Glucose (mg/dL) 176 H 117 H 134 H 11/16/18 05:35 POC Glucose (mg/dL) 136 H
--- NOTE | 2018-11-16 09:05 | RAD ---
Date of service: 11/16/2018 PROCEDURE: CHEST RADIOGRAPH, 1 VIEW HISTORY: PNEUMONIA COMPARISON: 11/15/2018 FINDINGS: LUNGS: The lungs are well inflated. There is patchy airspace disease in the right lower lobe. There is moderate pulmonary venous congestion. No focal consolidation. PLEURA: No pneumothorax or pleural effusion. CARDIOVASCULAR: The heart is normal in size. There are aortic atherosclerotic calcifications present. There is stable position of left-sided permanent pacing device. OSSEOUS STRUCTURES: Within normal limits for the patient's age. VISUALIZED UPPER ABDOMEN: Normal. OTHER FINDINGS: None. IMPRESSION: Little interval change in mild congestive heart failure. Patchy airspace disease in the right lower lobe may represent superimposed pneumonia.
[2018-11-16] MEDS: Potassium Chloride 20 mEq ER Tab PO SCH (09:22)
[2018-11-16] MEDS: Pantoprazole 40 mg EC Tab PO SCH (09:22)
[2018-11-16] MEDS: Levothyroxine 100 mcg (0.1 mg) Inj IVP SCH (09:23)
[2018-11-16] MEDS: Lactobacillus Acidophilus 500 MU Cap PO SCH ×2 (09:29→17:03)
[2018-11-16 09:58] LABS: ABG ALLEN TEST YES; ARTERIAL BLOOD GAS HCO3 36.5 mmol/L (21-28); ARTERIAL BLOOD GAS O2 SAT 96.3 % (95-98); ARTERIAL BLOOD GAS PCO2 66 mm/Hg (35-45); ARTERIAL BLOOD GAS PH 7.42 (7.35-7.45); ARTERIAL BLOOD GAS PO2 65 mm/Hg (80-100); ARTERIAL BLOOD GAS TCO2 44.8 mmol/L (22-28)
--- NOTE | 2018-11-16 11:34 | CP.PCM.PN ---
Subjective - Date & Time of Evaluation Date of Evaluation: 11/16/18 Time of Evaluation: 07:00 - Subjective Subjective: examined on rounds' awake aler eliu Objective - Vital Signs/Intake and Output Vital Signs (last 24 hours): Temp Pulse Resp BP Pulse Ox 97.8 F 75 20 128/71 98 11/16/18 07:56 11/16/18 09:22 11/16/18 07:56 11/16/18 09:22 11/16/18 11:07 - Medications Medications: Current Medications Acetaminophen (Tylenol 650mg/20.3ml Solution Ud) 650 mg NG Q6 PRN PRN Reason: fever: temp of > 100.4 F Last Admin: 11/11/18 20:16 Dose: 650 mg Albuterol/Ipratropium (Duoneb 3 Mg/0.5 Mg (3 Ml) Ud) 3 ml INH Q6H [facility] Last Admin: 11/16/18 07:21 Dose: 3 ml Carvedilol (Coreg) 3.125 mg PO Q12 [facility] Last Admin: 11/16/18 09:22 Dose: 3.125 mg Dextrose (Dextrose 50% Inj) 0 ml IV STAT PRN; Protocol PRN Reason: Hypoglycemia Protocol Dextrose (Glutose 15) 0 gm PO ONCE PRN; Protocol PRN Reason: Hypoglycemia Protocol Furosemide (Lasix) 40 mg IV DAILY [facility] Last Admin: 11/16/18 09:21 Dose: 40 mg Glucagon (Glucagen Diagnostic Kit) 0 mg IM STAT PRN; Protocol PRN Reason: Hypoglycemia Protocol Meropenem 1 gm/ Sodium (Chloride) 100 mls @ 100 mls/hr IVPB Q8 [facility]; Protocol Last Admin: 11/16/18 09:21 Dose: 100 mls/hr Insulin Human Lispro (Humalog) 0 units SC ACHS [facility]; Protocol Last Admin: 11/16/18 06:31 Dose: Not Given Lactobacillus Acidophilus (Bacid Acidophilus) 1 cap PO BID [facility] Last Admin: 11/16/18 09:29 Dose: 1 cap Levothyroxine Sodium (Synthroid) 37.5 mcg IVP DAILY [facility] Last Admin: 11/16/18 09:23 Dose: 37.5 mcg Pantoprazole Sodium (Protonix Ec Tab) 40 mg PO DAILY [facility] Last Admin: 11/16/18 09:22 Dose: 40 mg Potassium Chloride (K-Dur 20 Meq Er Tab) 20 meq PO DAILY [facility] Last Admin: 11/16/18 09:22 Dose: 20 meq - Labs Labs: 11/15/18 05:20 11/15/18 05:20 PT 11.8 Seconds (9.8-13.1) 11/05/18 21:00 INR 1.0 11/05/18 21:00 APTT 37.4 Seconds (25.6-37.1) H 11/05/18 21:00 - Constitutional Appears: Non-toxic - Head Exam Head Exam: NORMOCEPHALIC - Eye Exam Eye Exam: PERRL - ENT Exam ENT Exam: Mucous Membranes Dry - Respiratory Exam Respiratory Exam: Decreased Breath Sounds - Cardiovascular Exam Cardiovascular Exam: REGULAR RHYTHM - GI/Abdominal Exam GI & Abdominal Exam: Distended, Soft - Rectal Exam Rectal Exam: Deferred - Exam Exam: NORMAL INSPECTION - Back Exam Back Exam: absent: paraspinal tenderness - Neurological Exam Neurological Exam: Alert, Awake Assessment and Plan (1) CHF (congestive heart failure) Status: Acute (2) Dehydration Status: Acute (3) Pneumonia Status: Acute (4) Respiratory failure Status: Acute (5) Sepsis Status: Acute (6) UTI (urinary tract infection) Status: Acute - Assessment and Plan (Free Text) Assessment: improving slowly will renw IV rx
--- NOTE | 2018-11-16 12:22 | PN ---
DATE: 11/16/2018 SUBJECTIVE: The patient seen and examined. Interim events noted. Consults noted and appreciated. Telephone orders . The patient had episodes of agitation. Currently the patient is sleeping, arousable, feels okay. Denies any specific complaint of chest pain or shortness of breath. No other specific issue reported by night nurse. PHYSICAL EXAMINATION: GENERAL: The patient is in no acute distress. VITAL SIGNS: Stable. HEART: S1 and S2, normal, regular. LUNGS: Good bilateral air exchange. ABDOMEN: Soft, nontender. EXTREMITIES: No edema. No calf swelling. No tenderness. No acute ischemia. CENTRAL NERVOUS SYSTEM: Essentially unchanged. DIAGNOSTIC DATA: Available diagnostic data reviewed. Telemetry monitoring does not show significant arrhythmia. ASSESSMENT AND PLAN: Overall, the patient's general medical condition is stable and improving. Plan as ordered. Nakul Zhang MD
[2018-11-16 16:39] LABS: MEAN CELL VOLUME 82.1 fl (81.0-99.0); MEAN CORPUSCULAR HEMOGLOBIN 25.8 pg (27.0-31.0); MEAN CORPUSCULAR HGB CONC 31.4 g/dL (33.0-37.0); RBC 4.65 Mil/uL (3.80-5.20); RED CELL DISTRIBUTION WIDTH 20.2 % (11.5-14.5); WHITE BLOOD COUNT 5.1 K/uL (4.8-10.8)
[2018-11-16 16:55] LABS: ALT/SGPT 63 U/L (9-52); AST/SGOT 63 U/L (14-36); BLOOD UREA NITROGEN 15 mg/dl (7-17); CALCIUM 8.6 mg/dL (8.4-10.2); GFR NON-AFRICAN AMERICAN > 60
--- NOTE | 2018-11-16 22:50 | CP.PCM.PN ---
Subjective - Date & Time of Evaluation Date of Evaluation: 11/11/18 Time of Evaluation: 15:00 - Subjective Subjective: more awake records obtained from [facility] Objective - Vital Signs/Intake and Output Vital Signs (last 24 hours): Temp Pulse Resp BP Pulse Ox 97.6 F 89 18 125/79 95 11/16/18 20:08 11/16/18 21:58 11/16/18 20:08 11/16/18 21:58 11/16/18 20:08 - Medications Medications: Current Medications Acetaminophen (Tylenol 650mg/20.3ml Solution Ud) 650 mg NG Q6 PRN PRN Reason: fever: temp of > 100.4 F Last Admin: 11/11/18 20:16 Dose: 650 mg Albuterol/Ipratropium (Duoneb 3 Mg/0.5 Mg (3 Ml) Ud) 3 ml INH Q6H [facility] Last Admin: 11/16/18 19:51 Dose: 3 ml Carvedilol (Coreg) 3.125 mg PO Q12 [facility] Last Admin: 11/16/18 21:58 Dose: 3.125 mg Dextrose (Dextrose 50% Inj) 0 ml IV STAT PRN; Protocol PRN Reason: Hypoglycemia Protocol Dextrose (Glutose 15) 0 gm PO ONCE PRN; Protocol PRN Reason: Hypoglycemia Protocol Furosemide (Lasix) 40 mg IV DAILY [facility] Last Admin: 11/16/18 09:21 Dose: 40 mg Glucagon (Glucagen Diagnostic Kit) 0 mg IM STAT PRN; Protocol PRN Reason: Hypoglycemia Protocol Meropenem 1 gm/ Sodium (Chloride) 100 mls @ 100 mls/hr IVPB Q8 [facility]; Protocol Last Admin: 11/16/18 17:03 Dose: 100 mls/hr Insulin Human Lispro (Humalog) 0 units SC ACHS [facility]; Protocol Last Admin: 11/16/18 22:23 Dose: Not Given Lactobacillus Acidophilus (Bacid Acidophilus) 1 cap PO BID [facility] Last Admin: 11/16/18 17:03 Dose: 1 cap Levothyroxine Sodium (Synthroid) 37.5 mcg IVP DAILY [facility] Last Admin: 11/16/18 09:23 Dose: 37.5 mcg Pantoprazole Sodium (Protonix Ec Tab) 40 mg PO DAILY [facility] Last Admin: 11/16/18 09:22 Dose: 40 mg Potassium Chloride (K-Dur 20 Meq Er Tab) 20 meq PO DAILY [facility] Last Admin: 11/16/18 09:22 Dose: 20 meq - Labs Labs: 11/16/18 16:18 11/16/18 16:18 PT 11.8 Seconds (9.8-13.1) 11/05/18 21:00 INR 1.0 11/05/18 21:00 APTT 37.4 Seconds (25.6-37.1) H 11/05/18 21:00 - Constitutional Appears: Toxic, Agitated - Head Exam Head Exam: ATRAUMATIC, NORMAL INSPECTION, NORMOCEPHALIC - Eye Exam Eye Exam: EOMI, Normal appearance, PERRL Pupil Exam: NORMAL ACCOMODATION, PERRL - ENT Exam ENT Exam: Mucous Membranes Moist, Normal Exam - Neck Exam Neck Exam: Full ROM, Normal Inspection. absent: Lymphadenopathy - Respiratory Exam Respiratory Exam: Clear to Ausculation Bilateral, Rales, NORMAL BREATHING PATTERN - Cardiovascular Exam Cardiovascular Exam: REGULAR RHYTHM, +S1, +S2, Murmur - GI/Abdominal Exam GI & Abdominal Exam: Soft, Normal Bowel Sounds. absent: Tenderness - Extremities Exam Extremities Exam: Full ROM, Normal Capillary Refill, Normal Inspection. absent: Joint Swelling, Pedal Edema - Back Exam Back Exam: NORMAL INSPECTION - Neurological Exam Neurological Exam: Alert, Awake, CN II-XII Intact, Normal Gait, Oriented x3 - Psychiatric Exam Psychiatric exam: Normal Affect, Normal Mood - Skin Skin Exam: Dry, Intact, Normal Color, Warm Assessment and Plan (1) CHF (congestive heart failure) Status: Acute (2) Dehydration Status: Acute (3) Pneumonia Status: Acute (4) Respiratory failure Status: Acute (5) Severe sepsis Status: Acute (6) UTI (urinary tract infection) Status: Acute
--- NOTE | 2018-11-16 22:53 | CP.PCM.PN ---
Subjective - Date & Time of Evaluation Date of Evaluation: 11/12/18 Time of Evaluation: 19:00 - Subjective Subjective: extubated drowsy Objective - Vital Signs/Intake and Output Vital Signs (last 24 hours): Temp Pulse Resp BP Pulse Ox 97.6 F 89 18 125/79 95 11/16/18 20:08 11/16/18 21:58 11/16/18 20:08 11/16/18 21:58 11/16/18 20:08 - Medications Medications: Current Medications Acetaminophen (Tylenol 650mg/20.3ml Solution Ud) 650 mg NG Q6 PRN PRN Reason: fever: temp of > 100.4 F Last Admin: 11/11/18 20:16 Dose: 650 mg Albuterol/Ipratropium (Duoneb 3 Mg/0.5 Mg (3 Ml) Ud) 3 ml INH Q6H [facility] Last Admin: 11/16/18 19:51 Dose: 3 ml Carvedilol (Coreg) 3.125 mg PO Q12 [facility] Last Admin: 11/16/18 21:58 Dose: 3.125 mg Dextrose (Dextrose 50% Inj) 0 ml IV STAT PRN; Protocol PRN Reason: Hypoglycemia Protocol Dextrose (Glutose 15) 0 gm PO ONCE PRN; Protocol PRN Reason: Hypoglycemia Protocol Furosemide (Lasix) 40 mg IV DAILY [facility] Last Admin: 11/16/18 09:21 Dose: 40 mg Glucagon (Glucagen Diagnostic Kit) 0 mg IM STAT PRN; Protocol PRN Reason: Hypoglycemia Protocol Meropenem 1 gm/ Sodium (Chloride) 100 mls @ 100 mls/hr IVPB Q8 [facility]; Protocol Last Admin: 11/16/18 17:03 Dose: 100 mls/hr Insulin Human Lispro (Humalog) 0 units SC ACHS [facility]; Protocol Last Admin: 11/16/18 22:23 Dose: Not Given Lactobacillus Acidophilus (Bacid Acidophilus) 1 cap PO BID [facility] Last Admin: 11/16/18 17:03 Dose: 1 cap Levothyroxine Sodium (Synthroid) 37.5 mcg IVP DAILY [facility] Last Admin: 11/16/18 09:23 Dose: 37.5 mcg Pantoprazole Sodium (Protonix Ec Tab) 40 mg PO DAILY [facility] Last Admin: 11/16/18 09:22 Dose: 40 mg Potassium Chloride (K-Dur 20 Meq Er Tab) 20 meq PO DAILY [facility] Last Admin: 11/16/18 09:22 Dose: 20 meq - Labs Labs: 11/16/18 16:18 11/16/18 16:18 PT 11.8 Seconds (9.8-13.1) 11/05/18 21:00 INR 1.0 11/05/18 21:00 APTT 37.4 Seconds (25.6-37.1) H 11/05/18 21:00 - Constitutional Appears: Well, Confused - Head Exam Head Exam: ATRAUMATIC, NORMAL INSPECTION, NORMOCEPHALIC - Eye Exam Eye Exam: EOMI, Normal appearance, PERRL Pupil Exam: NORMAL ACCOMODATION, PERRL - ENT Exam ENT Exam: Mucous Membranes Moist, Normal Exam - Neck Exam Neck Exam: Full ROM, Normal Inspection. absent: Lymphadenopathy - Respiratory Exam Respiratory Exam: Clear to Ausculation Bilateral, Rales, NORMAL BREATHING PATTERN - Cardiovascular Exam Cardiovascular Exam: REGULAR RHYTHM, +S1, +S2, Murmur - GI/Abdominal Exam GI & Abdominal Exam: Soft, Normal Bowel Sounds. absent: Tenderness - Extremities Exam Extremities Exam: Full ROM, Normal Capillary Refill, Normal Inspection. absent: Joint Swelling, Pedal Edema - Back Exam Back Exam: NORMAL INSPECTION - Neurological Exam Neurological Exam: Awake - Psychiatric Exam Psychiatric exam: Normal Affect, Normal Mood - Skin Skin Exam: Dry, Intact, Normal Color, Warm Assessment and Plan (1) CHF (congestive heart failure) Status: Acute (2) Dehydration Status: Acute (3) Pneumonia Status: Acute (4) Respiratory failure Status: Acute (5) Severe sepsis Status: Acute (6) UTI (urinary tract infection) Status: Acute
--- NOTE | 2018-11-16 22:56 | CP.PCM.PN ---
Subjective - Date & Time of Evaluation Date of Evaluation: 11/13/18 Time of Evaluation: 11:00 - Subjective Subjective: extubated/reintubated on bipap DNr as per family Objective - Vital Signs/Intake and Output Vital Signs (last 24 hours): Temp Pulse Resp BP Pulse Ox 97.6 F 89 18 125/79 95 11/16/18 20:08 11/16/18 21:58 11/16/18 20:08 11/16/18 21:58 11/16/18 20:08 - Medications Medications: Current Medications Acetaminophen (Tylenol 650mg/20.3ml Solution Ud) 650 mg NG Q6 PRN PRN Reason: fever: temp of > 100.4 F Last Admin: 11/11/18 20:16 Dose: 650 mg Albuterol/Ipratropium (Duoneb 3 Mg/0.5 Mg (3 Ml) Ud) 3 ml INH Q6H [facility] Last Admin: 11/16/18 19:51 Dose: 3 ml Carvedilol (Coreg) 3.125 mg PO Q12 [facility] Last Admin: 11/16/18 21:58 Dose: 3.125 mg Dextrose (Dextrose 50% Inj) 0 ml IV STAT PRN; Protocol PRN Reason: Hypoglycemia Protocol Dextrose (Glutose 15) 0 gm PO ONCE PRN; Protocol PRN Reason: Hypoglycemia Protocol Furosemide (Lasix) 40 mg IV DAILY [facility] Last Admin: 11/16/18 09:21 Dose: 40 mg Glucagon (Glucagen Diagnostic Kit) 0 mg IM STAT PRN; Protocol PRN Reason: Hypoglycemia Protocol Meropenem 1 gm/ Sodium (Chloride) 100 mls @ 100 mls/hr IVPB Q8 [facility]; Protocol Last Admin: 11/16/18 17:03 Dose: 100 mls/hr Insulin Human Lispro (Humalog) 0 units SC ACHS [facility]; Protocol Last Admin: 11/16/18 22:23 Dose: Not Given Lactobacillus Acidophilus (Bacid Acidophilus) 1 cap PO BID [facility] Last Admin: 11/16/18 17:03 Dose: 1 cap Levothyroxine Sodium (Synthroid) 37.5 mcg IVP DAILY [facility] Last Admin: 11/16/18 09:23 Dose: 37.5 mcg Pantoprazole Sodium (Protonix Ec Tab) 40 mg PO DAILY [facility] Last Admin: 11/16/18 09:22 Dose: 40 mg Potassium Chloride (K-Dur 20 Meq Er Tab) 20 meq PO DAILY [facility] Last Admin: 11/16/18 09:22 Dose: 20 meq - Labs Labs: 11/16/18 16:18 11/16/18 16:18 PT 11.8 Seconds (9.8-13.1) 11/05/18 21:00 INR 1.0 11/05/18 21:00 APTT 37.4 Seconds (25.6-37.1) H 11/05/18 21:00 - Constitutional Appears: Well, Agitated - Head Exam Head Exam: ATRAUMATIC, NORMAL INSPECTION, NORMOCEPHALIC - Eye Exam Eye Exam: EOMI, Normal appearance, PERRL Pupil Exam: NORMAL ACCOMODATION, PERRL - ENT Exam ENT Exam: Mucous Membranes Moist, Normal Exam - Neck Exam Neck Exam: Full ROM, Normal Inspection. absent: Lymphadenopathy - Respiratory Exam Respiratory Exam: Clear to Ausculation Bilateral, Rales, NORMAL BREATHING PATTERN - Cardiovascular Exam Cardiovascular Exam: REGULAR RHYTHM, +S1, +S2. absent: Murmur - GI/Abdominal Exam GI & Abdominal Exam: Soft, Normal Bowel Sounds. absent: Tenderness - Extremities Exam Extremities Exam: Full ROM, Normal Capillary Refill, Normal Inspection. absent: Joint Swelling, Pedal Edema - Back Exam Back Exam: NORMAL INSPECTION - Neurological Exam Neurological Exam: Alert, Awake, CN II-XII Intact, Normal Gait, Oriented x3 - Psychiatric Exam Psychiatric exam: Normal Affect, Normal Mood - Skin Skin Exam: Dry, Intact, Normal Color, Warm Assessment and Plan (1) CHF (congestive heart failure) Status: Acute (2) Dehydration Status: Acute (3) Pneumonia Status: Acute (4) Respiratory failure Status: Acute (5) Severe sepsis Status: Acute (6) UTI (urinary tract infection) Status: Acute
--- NOTE | 2018-11-16 23:08 | CP.PCM.PN ---
Subjective - Date & Time of Evaluation Date of Evaluation: 11/16/18 Time of Evaluation: 19:00 - Subjective Subjective: drowsy and lethargic Objective - Vital Signs/Intake and Output Vital Signs (last 24 hours): Temp Pulse Resp BP Pulse Ox 97.6 F 89 18 125/79 95 11/16/18 20:08 11/16/18 21:58 11/16/18 20:08 11/16/18 21:58 11/16/18 20:08 - Medications Medications: Current Medications Acetaminophen (Tylenol 650mg/20.3ml Solution Ud) 650 mg NG Q6 PRN PRN Reason: fever: temp of > 100.4 F Last Admin: 11/11/18 20:16 Dose: 650 mg Albuterol/Ipratropium (Duoneb 3 Mg/0.5 Mg (3 Ml) Ud) 3 ml INH Q6H [facility] Last Admin: 11/16/18 19:51 Dose: 3 ml Carvedilol (Coreg) 3.125 mg PO Q12 [facility] Last Admin: 11/16/18 21:58 Dose: 3.125 mg Dextrose (Dextrose 50% Inj) 0 ml IV STAT PRN; Protocol PRN Reason: Hypoglycemia Protocol Dextrose (Glutose 15) 0 gm PO ONCE PRN; Protocol PRN Reason: Hypoglycemia Protocol Furosemide (Lasix) 40 mg IV DAILY [facility] Last Admin: 11/16/18 09:21 Dose: 40 mg Glucagon (Glucagen Diagnostic Kit) 0 mg IM STAT PRN; Protocol PRN Reason: Hypoglycemia Protocol Meropenem 1 gm/ Sodium (Chloride) 100 mls @ 100 mls/hr IVPB Q8 [facility]; Protocol Last Admin: 11/16/18 17:03 Dose: 100 mls/hr Insulin Human Lispro (Humalog) 0 units SC ACHS [facility]; Protocol Last Admin: 11/16/18 22:23 Dose: Not Given Lactobacillus Acidophilus (Bacid Acidophilus) 1 cap PO BID [facility] Last Admin: 11/16/18 17:03 Dose: 1 cap Levothyroxine Sodium (Synthroid) 37.5 mcg IVP DAILY [facility] Last Admin: 11/16/18 09:23 Dose: 37.5 mcg Pantoprazole Sodium (Protonix Ec Tab) 40 mg PO DAILY [facility] Last Admin: 11/16/18 09:22 Dose: 40 mg Potassium Chloride (K-Dur 20 Meq Er Tab) 20 meq PO DAILY [facility] Last Admin: 11/16/18 09:22 Dose: 20 meq - Labs Labs: 11/16/18 16:18 11/16/18 16:18 PT 11.8 Seconds (9.8-13.1) 11/05/18 21:00 INR 1.0 11/05/18 21:00 APTT 37.4 Seconds (25.6-37.1) H 11/05/18 21:00 - Constitutional Appears: Well - Head Exam Head Exam: ATRAUMATIC, NORMAL INSPECTION, NORMOCEPHALIC - Eye Exam Eye Exam: EOMI, Normal appearance, PERRL Pupil Exam: NORMAL ACCOMODATION, PERRL - ENT Exam ENT Exam: Mucous Membranes Moist, Normal Exam - Neck Exam Neck Exam: Full ROM, Normal Inspection. absent: Lymphadenopathy - Respiratory Exam Respiratory Exam: Clear to Ausculation Bilateral, NORMAL BREATHING PATTERN - Cardiovascular Exam Cardiovascular Exam: REGULAR RHYTHM, +S1, +S2. absent: Murmur - GI/Abdominal Exam GI & Abdominal Exam: Soft, Normal Bowel Sounds. absent: Tenderness - Extremities Exam Extremities Exam: Full ROM, Normal Capillary Refill, Normal Inspection. absent: Joint Swelling, Pedal Edema - Back Exam Back Exam: NORMAL INSPECTION - Neurological Exam Neurological Exam: Alert, Awake, CN II-XII Intact, Normal Gait, Oriented x3 - Psychiatric Exam Psychiatric exam: Normal Affect, Normal Mood - Skin Skin Exam: Dry, Intact, Normal Color, Warm Assessment and Plan (1) CHF (congestive heart failure) Status: Acute (2) Dehydration Status: Acute (3) Pneumonia Status: Acute (4) Respiratory failure Status: Acute (5) Severe sepsis Status: Acute (6) UTI (urinary tract infection) Status: Acute
[2018-11-17] MEDS: Meropenem 1 GM in Sodium Chloride 0.9% 100 ML IVPB SCH ×3 (00:51→17:49)
[2018-11-17] MEDS: Albuterol-Ipratrop 3 mg / 0.5 (3 ml) UD INH SCH ×4 (02:03→19:41)
[2018-11-17 05:47] LABS: HEMOGLOBIN 12.2 g/dL (12.0-16.0); MEAN CELL VOLUME 81.5 fl (81.0-99.0); MEAN CORPUSCULAR HEMOGLOBIN 26.1 pg (27.0-31.0); RBC 4.66 Mil/uL (3.80-5.20); RED CELL DISTRIBUTION WIDTH 19.8 % (11.5-14.5); WHITE BLOOD COUNT 5.2 K/uL (4.8-10.8)
--- NOTE | 2018-11-17 08:10 | CP.PCM.PN ---
<Sultan Gianfranco - Last Filed: 11/17/18 09:11> Subjective - Date & Time of Evaluation Date of Evaluation: 11/17/18 Time of Evaluation: 07:50 - Subjective Subjective: Patient seen and examined this morning. Patient is awake, alert and oriented. Afebrile with stable vitals Patient attempts to climb out of bed and does not keep [place] oxygen. Denies any acute complaints of chest pain, dyspnea, abdominal pain, nausea, vomiting, fever or chills. Objective - Vital Signs/Intake and Output Vital Signs (last 24 hours): Temp Pulse Resp BP Pulse Ox 98.1 F 99 H 18 144/74 95 11/17/18 07:53 11/17/18 07:53 11/17/18 07:53 11/17/18 07:53 11/17/18 07:53 Intake and Output: 11/17/18 11/17/18 06:59 18:59 Intake Total 360 Output Total 225 Balance 135 - Medications Medications: Current Medications Acetaminophen (Tylenol 650mg/20.3ml Solution Ud) 650 mg NG Q6 PRN PRN Reason: fever: temp of > 100.4 F Last Admin: 11/11/18 20:16 Dose: 650 mg Albuterol/Ipratropium (Duoneb 3 Mg/0.5 Mg (3 Ml) Ud) 3 ml INH Q6H [facility] Last Admin: 11/17/18 08:08 Dose: 3 ml Carvedilol (Coreg) 3.125 mg PO Q12 [facility] Last Admin: 11/16/18 21:58 Dose: 3.125 mg Dextrose (Dextrose 50% Inj) 0 ml IV STAT PRN; Protocol PRN Reason: Hypoglycemia Protocol Dextrose (Glutose 15) 0 gm PO ONCE PRN; Protocol PRN Reason: Hypoglycemia Protocol Furosemide (Lasix) 40 mg IV DAILY [facility] Last Admin: 11/16/18 09:21 Dose: 40 mg Glucagon (Glucagen Diagnostic Kit) 0 mg IM STAT PRN; Protocol PRN Reason: Hypoglycemia Protocol Meropenem 1 gm/ Sodium (Chloride) 100 mls @ 100 mls/hr IVPB Q8 [facility]; Protocol Last Admin: 11/17/18 00:51 Dose: 100 mls/hr Insulin Human Lispro (Humalog) 0 units SC ACHS [facility]; Protocol Last Admin: 01/07/19 22:23 Dose: Not Given Lactobacillus Acidophilus (Bacid Acidophilus) 1 cap PO BID [facility] Last Admin: 11/16/18 17:03 Dose: 1 cap Levothyroxine Sodium (Synthroid) 37.5 mcg IVP DAILY [facility] Last Admin: 11/16/18 09:23 Dose: 37.5 mcg Pantoprazole Sodium (Protonix Ec Tab) 40 mg PO DAILY [facility] Last Admin: 11/16/18 09:22 Dose: 40 mg Potassium Chloride (K-Dur 20 Meq Er Tab) 20 meq PO DAILY [facility] Last Admin: 11/16/18 09:22 Dose: 20 meq - Labs Labs: 11/17/18 04:00 11/16/18 16:18 PT 11.8 Seconds (9.8-13.1) 11/05/18 21:00 INR 1.0 11/05/18 21:00 APTT 37.4 Seconds (25.6-37.1) H 11/05/18 21:00 - Constitutional Appears: No Acute Distress - Head Exam Head Exam: NORMAL INSPECTION - Eye Exam Eye Exam: Normal appearance - ENT Exam ENT Exam: Mucous Membranes Moist - Neck Exam Neck Exam: Normal Inspection - Respiratory Exam Respiratory Exam: Clear to Ausculation Bilateral, NORMAL BREATHING PATTERN. absent: Rhonchi, Wheezes - Cardiovascular Exam Cardiovascular Exam: REGULAR RHYTHM, +S1, +S2 - GI/Abdominal Exam GI & Abdominal Exam: Soft, Normal Bowel Sounds. absent: Tenderness - Extremities Exam Extremities Exam: Normal Inspection. absent: Calf Tenderness - Neurological Exam Neurological Exam: Alert, Awake - Psychiatric Exam Psychiatric exam: Normal Affect, Normal Mood - Skin Skin Exam: Normal Color, Warm Assessment and Plan - Assessment and Plan (Free Text) Assessment: 82 yo F with hx HTN, CHF, DM, hypothyroidism, pacemaker, admitted due to respiratory failure after being sent from [facility]. Patient was extubated briefly on 11/10/18 but reintubated due to respiratory distress. Patient was extubated on 11/12/18 and transferred to Telemetry on 11/15/18, doing well on [place] oxygen. Plan: -Pulmonary consult, Dr. Reeves. Recommendation appreciated. -c/w [place] oxygen, Duoneb and meropenem -CHF, pacemaker - cardio consult - Dr. Kim. Recs appreciated. -Psychiatry consult, Dr. Weller, recommendation appreciated. -ID consult, Dr. Chiu, recs appreciated. -Presumed tx for hospital acquired infections -c/w Meropenem -blood cx no growth after 5 days -Urine cx: E coli. sensitive to meropenem. -Insulin coverage scale and hypoglycemia protocol -Resume home meds -Prophylaxis: Pantoprazole and Lovenox -continue with PT/OT -Rest of the plan as ordered. Patient seen, examined and plan d/w Dr. Leatha Medel, pgy-2 <Nakul Zhang - Last Filed: 11/18/18 10:38> Objective - Vital Signs/Intake and Output Vital Signs (last 24 hours): Temp Pulse Resp BP Pulse Ox 97.9 F 101 H 20 184/66 H 93 L 11/18/18 07:50 11/18/18 09:45 11/18/18 07:50 11/18/18 09:48 11/18/18 07:50 - Medications Medications: Current Medications Acetaminophen (Tylenol 650mg/20.3ml Solution Ud) 650 mg NG Q6 PRN PRN Reason: fever: temp of > 100.4 F Last Admin: 11/11/18 20:16 Dose: 650 mg Albuterol/Ipratropium (Duoneb 3 Mg/0.5 Mg (3 Ml) Ud) 3 ml INH Q6H [facility] Last Admin: 11/18/18 08:28 Dose: 3 ml Carvedilol (Coreg) 3.125 mg PO Q12 [facility] Last Admin: 11/18/18 09:44 Dose: 3.125 mg Dextrose (Dextrose 50% Inj) 0 ml IV STAT PRN; Protocol PRN Reason: Hypoglycemia Protocol Dextrose (Glutose 15) 0 gm PO ONCE PRN; Protocol PRN Reason: Hypoglycemia Protocol Furosemide (Lasix) 40 mg IV DAILY [facility] Last Admin: 11/18/18 09:48 Dose: 40 mg Glucagon (Glucagen Diagnostic Kit) 0 mg IM STAT PRN; Protocol PRN Reason: Hypoglycemia Protocol Meropenem 1 gm/ Sodium (Chloride) 100 mls @ 100 mls/hr IVPB Q8 [facility]; Protocol Last Admin: 11/18/18 01:34 Dose: Not Given Insulin Human Lispro (Humalog) 0 units SC ACHS [facility]; Protocol Last Admin: 11/18/18 09:47 Dose: Not Given Lactobacillus Acidophilus (Bacid Acidophilus) 1 cap PO BID [facility] Last Admin: 11/17/18 17:47 Dose: Not Given Levothyroxine Sodium (Synthroid) 37.5 mcg PO DAILY@0630 [facility] Last Admin: 11/18/18 06:35 Dose: 37.5 mcg Losartan Potassium (Cozaar) 25 mg PO DAILY [facility] Last Admin: 11/18/18 09:45 Dose: 25 mg Pantoprazole Sodium (Protonix Ec Tab) 40 mg PO DAILY [facility] Last Admin: 11/18/18 09:53 Dose: 40 mg Potassium Chloride (K-Dur 20 Meq Er Tab) 20 meq PO DAILY [facility] Last Admin: 11/18/18 09:48 Dose: 20 meq Risperidone (Risperdal Tab) 0.5 mg PO Q12 PRN PRN Reason: Agitation Spironolactone (Aldactone) 12.5 mg PO DAILY [facility] Last Admin: 11/18/18 09:44 Dose: 12.5 mg - Labs Labs: 11/18/18 04:20 11/18/18 04:20 PT 11.8 Seconds (9.8-13.1) 11/05/18 21:00 INR 1.0 11/05/18 21:00 APTT 37.4 Seconds (25.6-37.1) H 11/05/18 21:00 Assessment and Plan - Assessment and Plan (Free Text) Assessment: Patient was personally seen and examined by me in rounds with residents. Available labs and diagnostic data reviewed. Case, Patient's condition and management plan discussed with residents in rounds. Agree with resident's progress note. Plan: As ordered.
--- NOTE | 2018-11-17 09:09 | CP.PCM.PN ---
Subjective - Date & Time of Evaluation Date of Evaluation: 11/17/18 Time of Evaluation: 09:09 - Subjective Subjective: AWAKE AND ALERT TRYING TO CLIMB OUT OF BED NO SOB/CHEST PAINS Objective - Vital Signs/Intake and Output Vital Signs (last 24 hours): Temp Pulse Resp BP Pulse Ox 98.1 F 99 H 18 144/74 95 11/17/18 07:53 11/17/18 07:53 11/17/18 07:53 11/17/18 07:53 11/17/18 07:53 Intake and Output: 11/17/18 11/17/18 06:59 18:59 Intake Total 360 Output Total 225 Balance 135 - Medications Medications: Current Medications Acetaminophen (Tylenol 650mg/20.3ml Solution Ud) 650 mg NG Q6 PRN PRN Reason: fever: temp of > 100.4 F Last Admin: 11/11/18 20:16 Dose: 650 mg Albuterol/Ipratropium (Duoneb 3 Mg/0.5 Mg (3 Ml) Ud) 3 ml INH Q6H [facility] Last Admin: 11/17/18 08:08 Dose: 3 ml Carvedilol (Coreg) 3.125 mg PO Q12 [facility] Last Admin: 11/16/18 21:58 Dose: 3.125 mg Dextrose (Dextrose 50% Inj) 0 ml IV STAT PRN; Protocol PRN Reason: Hypoglycemia Protocol Dextrose (Glutose 15) 0 gm PO ONCE PRN; Protocol PRN Reason: Hypoglycemia Protocol Furosemide (Lasix) 40 mg IV DAILY [facility] Last Admin: 11/16/18 09:21 Dose: 40 mg Glucagon (Glucagen Diagnostic Kit) 0 mg IM STAT PRN; Protocol PRN Reason: Hypoglycemia Protocol Meropenem 1 gm/ Sodium (Chloride) 100 mls @ 100 mls/hr IVPB Q8 [facility]; Protocol Last Admin: 11/17/18 00:51 Dose: 100 mls/hr Insulin Human Lispro (Humalog) 0 units SC ACHS [facility]; Protocol Last Admin: 11/16/18 22:23 Dose: Not Given Lactobacillus Acidophilus (Bacid Acidophilus) 1 cap PO BID [facility] Last Admin: 11/16/18 17:03 Dose: 1 cap Levothyroxine Sodium (Synthroid) 37.5 mcg IVP DAILY [facility] Last Admin: 11/16/18 09:23 Dose: 37.5 mcg Pantoprazole Sodium (Protonix Ec Tab) 40 mg PO DAILY [facility] Last Admin: 11/16/18 09:22 Dose: 40 mg Potassium Chloride (K-Dur 20 Meq Er Tab) 20 meq PO DAILY [facility] Last Admin: 11/16/18 09:22 Dose: 20 meq - Labs Labs: 11/17/18 04:00 11/16/18 16:18 PT 11.8 Seconds (9.8-13.1) 11/05/18 21:00 INR 1.0 11/05/18 21:00 APTT 37.4 Seconds (25.6-37.1) H 11/05/18 21:00 - Constitutional Appears: Confused - Head Exam Head Exam: ATRAUMATIC, NORMAL INSPECTION, NORMOCEPHALIC - Eye Exam Eye Exam: EOMI, Normal appearance, PERRL Pupil Exam: NORMAL ACCOMODATION, PERRL - ENT Exam ENT Exam: Mucous Membranes Moist, Normal Exam - Neck Exam Neck Exam: Full ROM, Normal Inspection. absent: Lymphadenopathy - Respiratory Exam Respiratory Exam: Prolonged Expiratory Phase, Rales, NORMAL BREATHING PATTERN - Cardiovascular Exam Cardiovascular Exam: REGULAR RHYTHM, +S1, +S2. absent: Murmur - GI/Abdominal Exam GI & Abdominal Exam: Soft, Normal Bowel Sounds. absent: Tenderness - Rectal Exam Rectal Exam: NORMAL INSPECTION - Extremities Exam Extremities Exam: Full ROM, Normal Capillary Refill, Normal Inspection. absent: Joint Swelling, Pedal Edema - Back Exam Back Exam: NORMAL INSPECTION - Neurological Exam Neurological Exam: Alert, Awake, CN II-XII Intact - Skin Skin Exam: Dry, Intact, Normal Color, Warm Assessment and Plan - Assessment and Plan (Free Text) Assessment: COPD RESP FAILURE-IMPROVED PNEUMONIA--CLINICALLY IMPROVED ALTERED MENTAL STATUS Plan: MAY BENEFIT FROM SUBACUTE CARE CONTINUE CURRENT RX
[2018-11-17] MEDS: Potassium Chloride 20 mEq ER Tab PO SCH (09:40)
--- NOTE | 2018-11-17 10:20 | CP.PCM.PN ---
Subjective - Date & Time of Evaluation Date of Evaluation: 11/17/18 Time of Evaluation: 10:10 - Subjective Subjective: awake and responsive still feeling sob with activity recent stress test at [place] showed normal EF and no ischemia Objective - Vital Signs/Intake and Output Vital Signs (last 24 hours): Temp Pulse Resp BP Pulse Ox 98.1 F 99 H 18 144/74 95 11/17/18 07:53 11/17/18 07:53 11/17/18 07:53 11/17/18 07:53 11/17/18 07:53 Intake and Output: 11/17/18 11/17/18 06:59 18:59 Intake Total 360 Output Total 225 Balance 135 - Medications Medications: Current Medications Acetaminophen (Tylenol 650mg/20.3ml Solution Ud) 650 mg NG Q6 PRN PRN Reason: fever: temp of > 100.4 F Last Admin: 11/11/18 20:16 Dose: 650 mg Albuterol/Ipratropium (Duoneb 3 Mg/0.5 Mg (3 Ml) Ud) 3 ml INH Q6H [facility] Last Admin: 11/17/18 08:08 Dose: 3 ml Carvedilol (Coreg) 3.125 mg PO Q12 [facility] Last Admin: 11/16/18 21:58 Dose: 3.125 mg Dextrose (Dextrose 50% Inj) 0 ml IV STAT PRN; Protocol PRN Reason: Hypoglycemia Protocol Dextrose (Glutose 15) 0 gm PO ONCE PRN; Protocol PRN Reason: Hypoglycemia Protocol Furosemide (Lasix) 40 mg IV DAILY [facility] Last Admin: 11/16/18 09:21 Dose: 40 mg Glucagon (Glucagen Diagnostic Kit) 0 mg IM STAT PRN; Protocol PRN Reason: Hypoglycemia Protocol Meropenem 1 gm/ Sodium (Chloride) 100 mls @ 100 mls/hr IVPB Q8 [facility]; Protocol Last Admin: 11/17/18 00:51 Dose: 100 mls/hr Insulin Human Lispro (Humalog) 0 units SC ACHS [facility]; Protocol Last Admin: 11/16/18 22:23 Dose: Not Given Lactobacillus Acidophilus (Bacid Acidophilus) 1 cap PO BID [facility] Last Admin: 11/16/18 17:03 Dose: 1 cap Levothyroxine Sodium (Synthroid) 37.5 mcg IVP DAILY [facility] Last Admin: 11/16/18 09:23 Dose: 37.5 mcg Pantoprazole Sodium (Protonix Ec Tab) 40 mg PO DAILY [facility] Last Admin: 11/16/18 09:22 Dose: 40 mg Potassium Chloride (K-Dur 20 Meq Er Tab) 20 meq PO DAILY [facility] Last Admin: 11/16/18 09:22 Dose: 20 meq Risperidone (Risperdal Tab) 0.5 mg PO Q12 PRN PRN Reason: Agitation - Labs Labs: 11/17/18 04:00 11/16/18 16:18 PT 11.8 Seconds (9.8-13.1) 11/05/18 21:00 INR 1.0 11/05/18 21:00 APTT 37.4 Seconds (25.6-37.1) H 11/05/18 21:00 - Constitutional Appears: Well - Head Exam Head Exam: ATRAUMATIC, NORMAL INSPECTION, NORMOCEPHALIC - Eye Exam Eye Exam: EOMI, Normal appearance, PERRL Pupil Exam: NORMAL ACCOMODATION, PERRL - ENT Exam ENT Exam: Mucous Membranes Moist, Normal Exam - Neck Exam Neck Exam: Full ROM, Normal Inspection. absent: Lymphadenopathy - Respiratory Exam Respiratory Exam: Clear to Ausculation Bilateral, NORMAL BREATHING PATTERN - Cardiovascular Exam Cardiovascular Exam: REGULAR RHYTHM, +S1, +S2. absent: Murmur - GI/Abdominal Exam GI & Abdominal Exam: Soft, Normal Bowel Sounds. absent: Tenderness - Extremities Exam Extremities Exam: Full ROM, Normal Capillary Refill, Normal Inspection. absent: Joint Swelling, Pedal Edema - Back Exam Back Exam: NORMAL INSPECTION - Neurological Exam Neurological Exam: Alert, Awake, CN II-XII Intact, Normal Gait, Oriented x3 - Psychiatric Exam Psychiatric exam: Normal Affect, Normal Mood - Skin Skin Exam: Dry, Intact, Normal Color, Warm Assessment and Plan (1) CHF (congestive heart failure) Assessment & Plan: diastolic CHF etiology ? pulmonary HTN add losartan cont coreg and lasix add aldactone Status: Acute (2) Dehydration Status: Acute (3) Pneumonia Status: Acute (4) Respiratory failure Status: Acute (5) Severe sepsis Status: Acute (6) UTI (urinary tract infection) Status: Acute
[2018-11-17] MEDS: Pantoprazole 40 mg EC Tab PO SCH (11:38)
[2018-11-17] MEDS: Lactobacillus Acidophilus 500 MU Cap PO SCH ×2 (11:44→17:47)
[2018-11-17] MEDS: Insulin Lispro (humaLOG) 100 Units/ml Inj SC SCH ×3 (17:48→22:34)
[2018-11-18] MEDS: Albuterol-Ipratrop 3 mg / 0.5 (3 ml) UD INH SCH ×4 (00:59→19:24)
[2018-11-18] MEDS: Meropenem 1 GM in Sodium Chloride 0.9% 100 ML IVPB SCH ×3 (01:34→17:06)
[2018-11-18 05:24] LABS: HEMOGLOBIN 12.2 g/dL (12.0-16.0); MEAN CORPUSCULAR HGB CONC 31.7 g/dL (33.0-37.0); RBC 4.69 Mil/uL (3.80-5.20); RED CELL DISTRIBUTION WIDTH 19.7 % (11.5-14.5); WHITE BLOOD COUNT 3.8 K/uL (4.8-10.8)
[2018-11-18 05:56] LABS: ALB/GLOB RATIO 0.9 (1.0-2.1); ALBUMIN 2.9 g/dL (3.5-5.0); ALT/SGPT 53 U/L (9-52); AST/SGOT 42 U/L (14-36); BLOOD UREA NITROGEN 14 mg/dl (7-17); CALCIUM 8.9 mg/dL (8.4-10.2); GFR NON-AFRICAN AMERICAN > 60
[2018-11-18] MEDS: Levothyroxine 75 MCG TAB PO SCH (06:35)
--- NOTE | 2018-11-18 07:43 | CP.PCM.PN ---
<Sultan Gianfranco - Last Filed: 11/18/18 10:00> Subjective - Date & Time of Evaluation Date of Evaluation: 11/18/18 Time of Evaluation: 07:00 - Subjective Subjective: Patient seen and examined with Dr. Zhang during rounds this morning. Patient is awake and alert Afebrile with stable vitals Patient removed her PICC line yesterday evening. Denies any acute complaints. No chest pain, dyspnea, fever or chills. Objective - Vital Signs/Intake and Output Vital Signs (last 24 hours): Temp Pulse Resp BP Pulse Ox 97.4 F L 88 20 146/70 93 L 11/18/18 06:03 11/18/18 06:03 11/18/18 06:03 11/18/18 06:03 11/18/18 06:03 - Medications Medications: Current Medications Acetaminophen (Tylenol 650mg/20.3ml Solution Ud) 650 mg NG Q6 PRN PRN Reason: fever: temp of > 100.4 F Last Admin: 11/11/18 20:16 Dose: 650 mg Albuterol/Ipratropium (Duoneb 3 Mg/0.5 Mg (3 Ml) Ud) 3 ml INH Q6H [facility] Last Admin: 11/18/18 00:59 Dose: 3 ml Carvedilol (Coreg) 3.125 mg PO Q12 [facility] Last Admin: 11/17/18 22:36 Dose: 3.125 mg Dextrose (Dextrose 50% Inj) 0 ml IV STAT PRN; Protocol PRN Reason: Hypoglycemia Protocol Dextrose (Glutose 15) 0 gm PO ONCE PRN; Protocol PRN Reason: Hypoglycemia Protocol Furosemide (Lasix) 40 mg IV DAILY [facility] Last Admin: 11/17/18 11:39 Dose: 40 mg Glucagon (Glucagen Diagnostic Kit) 0 mg IM STAT PRN; Protocol PRN Reason: Hypoglycemia Protocol Meropenem 1 gm/ Sodium (Chloride) 100 mls @ 100 mls/hr IVPB Q8 [facility]; Protocol Last Admin: 11/18/18 01:34 Dose: Not Given Insulin Human Lispro (Humalog) 0 units SC ACHS [facility]; Protocol Last Admin: 11/17/18 22:34 Dose: Not Given Lactobacillus Acidophilus (Bacid Acidophilus) 1 cap PO BID [facility] Last Admin: 11/17/18 17:47 Dose: Not Given Levothyroxine Sodium (Synthroid) 37.5 mcg PO DAILY@0630 [facility] Last Admin: 11/18/18 06:35 Dose: 37.5 mcg Losartan Potassium (Cozaar) 25 mg PO DAILY [facility] Last Admin: 11/17/18 16:33 Dose: Not Given Pantoprazole Sodium (Protonix Ec Tab) 40 mg PO DAILY [facility] Last Admin: 11/17/18 11:38 Dose: 40 mg Potassium Chloride (K-Dur 20 Meq Er Tab) 20 meq PO DAILY [facility] Last Admin: 11/17/18 09:40 Dose: 20 meq Risperidone (Risperdal Tab) 0.5 mg PO Q12 PRN PRN Reason: Agitation Spironolactone (Aldactone) 12.5 mg PO DAILY [facility] Last Admin: 11/17/18 16:26 Dose: Not Given - Labs Labs: 11/18/18 04:20 11/18/18 04:20 PT 11.8 Seconds (9.8-13.1) 11/05/18 21:00 INR 1.0 11/05/18 21:00 APTT 37.4 Seconds (25.6-37.1) H 11/05/18 21:00 - Constitutional Appears: No Acute Distress - Head Exam Head Exam: NORMAL INSPECTION - ENT Exam ENT Exam: Mucous Membranes Moist - Neck Exam Neck Exam: Normal Inspection - Respiratory Exam Respiratory Exam: Clear to Ausculation Bilateral, NORMAL BREATHING PATTERN. absent: Rhonchi, Wheezes, Respiratory Distress - Cardiovascular Exam Cardiovascular Exam: REGULAR RHYTHM, +S1, +S2 - GI/Abdominal Exam GI & Abdominal Exam: Soft, Normal Bowel Sounds. absent: Tenderness - Extremities Exam Extremities Exam: Normal Inspection. absent: Calf Tenderness - Psychiatric Exam Psychiatric exam: Normal Affect, Normal Mood - Skin Skin Exam: Normal Color Assessment and Plan - Assessment and Plan (Free Text) Assessment: 82 yo F with hx HTN, CHF, DM, hypothyroidism, pacemaker, admitted due to res piratory failure after being sent from [facility]. Patient was extubated briefly on 11/10/18 but reintubated due to respiratory distress. Patient was extubated on 11/12/18 and transferred to Telemetry on 11/15/18, doing well on [place] oxygen. Plan: -Pulmonary consult, Dr. Reeves. Recommendation appreciated. -c/w [place] oxygen, Duoneb and meropenem -CHF, pacemaker - cardio consult - Dr. Kim. Recs appreciated. -Psychiatry consult, Dr. Weller, recommendation appreciated. -ID consult, Dr. Chiu, recs appreciated. -Presumed tx for hospital acquired infections -c/w Meropenem -blood cx on 11/09/18: No growth after 5 days -Urine cx on 11/05/18: E coli. sensitive to meropenem. -Insulin coverage scale and hypoglycemia protocol -Resume home meds -Prophylaxis: Pantoprazole and Lovenox -continue with PT/OT -Rest of the plan as ordered. Patient seen, examined and plan d/w Dr. Leatha Medel, pgy-2 <Nakul Zhang - Last Filed: 11/18/18 10:36> Objective - Vital Signs/Intake and Output Vital Signs (last 24 hours): Temp Pulse Resp BP Pulse Ox 97.9 F 101 H 20 184/66 H 93 L 11/18/18 07:50 11/18/18 09:45 11/18/18 07:50 11/18/18 09:48 11/18/18 07:50 - Medications Medications: Current Medications Acetaminophen (Tylenol 650mg/20.3ml Solution Ud) 650 mg NG Q6 PRN PRN Reason: fever: temp of > 100.4 F Last Admin: 11/11/18 20:16 Dose: 650 mg Albuterol/Ipratropium (Duoneb 3 Mg/0.5 Mg (3 Ml) Ud) 3 ml INH Q6H [facility] Last Admin: 11/18/18 08:28 Dose: 3 ml Carvedilol (Coreg) 3.125 mg PO Q12 [facility] Last Admin: 11/18/18 09:44 Dose: 3.125 mg Dextrose (Dextrose 50% Inj) 0 ml IV STAT PRN; Protocol PRN Reason: Hypoglycemia Protocol Dextrose (Glutose 15) 0 gm PO ONCE PRN; Protocol PRN Reason: Hypoglycemia Protocol Furosemide (Lasix) 40 mg IV DAILY [facility] Last Admin: 11/18/18 09:48 Dose: 40 mg Glucagon (Glucagen Diagnostic Kit) 0 mg IM STAT PRN; Protocol PRN Reason: Hypoglycemia Protocol Meropenem 1 gm/ Sodium (Chloride) 100 mls @ 100 mls/hr IVPB Q8 [facility]; Protocol Last Admin: 11/18/18 01:34 Dose: Not Given Insulin Human Lispro (Humalog) 0 units SC ACHS [facility]; Protocol Last Admin: 11/18/18 09:47 Dose: Not Given Lactobacillus Acidophilus (Bacid Acidophilus) 1 cap PO BID [facility] Last Admin: 11/17/18 17:47 Dose: Not Given Levothyroxine Sodium (Synthroid) 37.5 mcg PO DAILY@0630 [facility] Last Admin: 11/18/18 06:35 Dose: 37.5 mcg Losartan Potassium (Cozaar) 25 mg PO DAILY [facility] Last Admin: 11/18/18 09:45 Dose: 25 mg Pantoprazole Sodium (Protonix Ec Tab) 40 mg PO DAILY [facility] Last Admin: 11/18/18 09:53 Dose: 40 mg Potassium Chloride (K-Dur 20 Meq Er Tab) 20 meq PO DAILY [facility] Last Admin: 11/18/18 09:48 Dose: 20 meq Risperidone (Risperdal Tab) 0.5 mg PO Q12 PRN PRN Reason: Agitation Spironolactone (Aldactone) 12.5 mg PO DAILY [facility] Last Admin: 11/18/18 09:44 Dose: 12.5 mg - Labs Labs: 11/18/18 04:20 11/18/18 04:20 PT 11.8 Seconds (9.8-13.1) 11/05/18 21:00 INR 1.0 11/05/18 21:00 APTT 37.4 Seconds (25.6-37.1) H 11/05/18 21:00 Assessment and Plan - Assessment and Plan (Free Text) Assessment: Patient was personally seen and examined by me in rounds with residents. Available labs and diagnostic data reviewed. Case, Patient's condition and management plan discussed with residents in rounds. Agree with resident's progress note. Plan: As ordered.
--- NOTE | 2018-11-18 09:16 | CP.PCM.PN ---
Subjective - Date & Time of Evaluation Date of Evaluation: 11/18/18 Time of Evaluation: 09:16 - Subjective Subjective: AWAKE/ALERT AND COOPERATIVE TODAY NO APPARENT DISTRESS SOB IMPROVED Objective - Vital Signs/Intake and Output Vital Signs (last 24 hours): Temp Pulse Resp BP Pulse Ox 97.9 F 101 H 20 184/66 H 93 L 11/18/18 07:50 11/18/18 07:50 11/18/18 07:50 11/18/18 07:50 11/18/18 07:50 - Medications Medications: Current Medications Acetaminophen (Tylenol 650mg/20.3ml Solution Ud) 650 mg NG Q6 PRN PRN Reason: fever: temp of > 100.4 F Last Admin: 11/11/18 20:16 Dose: 650 mg Albuterol/Ipratropium (Duoneb 3 Mg/0.5 Mg (3 Ml) Ud) 3 ml INH Q6H [facility] Last Admin: 11/18/18 08:28 Dose: 3 ml Carvedilol (Coreg) 3.125 mg PO Q12 [facility] Last Admin: 11/17/18 22:36 Dose: 3.125 mg Dextrose (Dextrose 50% Inj) 0 ml IV STAT PRN; Protocol PRN Reason: Hypoglycemia Protocol Dextrose (Glutose 15) 0 gm PO ONCE PRN; Protocol PRN Reason: Hypoglycemia Protocol Furosemide (Lasix) 40 mg IV DAILY [facility] Last Admin: 11/17/18 11:39 Dose: 40 mg Glucagon (Glucagen Diagnostic Kit) 0 mg IM STAT PRN; Protocol PRN Reason: Hypoglycemia Protocol Meropenem 1 gm/ Sodium (Chloride) 100 mls @ 100 mls/hr IVPB Q8 [facility]; Protocol Last Admin: 11/18/18 01:34 Dose: Not Given Insulin Human Lispro (Humalog) 0 units SC ACHS [facility]; Protocol Last Admin: 11/17/18 22:34 Dose: Not Given Lactobacillus Acidophilus (Bacid Acidophilus) 1 cap PO BID [facility] Last Admin: 11/17/18 17:47 Dose: Not Given Levothyroxine Sodium (Synthroid) 37.5 mcg PO DAILY@0630 [facility] Last Admin: 11/18/18 06:35 Dose: 37.5 mcg Losartan Potassium (Cozaar) 25 mg PO DAILY [facility] Last Admin: 11/17/18 16:33 Dose: Not Given Pantoprazole Sodium (Protonix Ec Tab) 40 mg PO DAILY [facility] Last Admin: 11/17/18 11:38 Dose: 40 mg Potassium Chloride (K-Dur 20 Meq Er Tab) 20 meq PO DAILY [facility] Last Admin: 11/17/18 09:40 Dose: 20 meq Risperidone (Risperdal Tab) 0.5 mg PO Q12 PRN PRN Reason: Agitation Spironolactone (Aldactone) 12.5 mg PO DAILY [facility] Last Admin: 11/17/18 16:26 Dose: Not Given - Labs Labs: 11/18/18 04:20 11/18/18 04:20 PT 11.8 Seconds (9.8-13.1) 11/05/18 21:00 INR 1.0 11/05/18 21:00 APTT 37.4 Seconds (25.6-37.1) H 11/05/18 21:00 - Constitutional Appears: No Acute Distress - Head Exam Head Exam: ATRAUMATIC, NORMAL INSPECTION, NORMOCEPHALIC - Eye Exam Eye Exam: EOMI, Normal appearance, PERRL Pupil Exam: NORMAL ACCOMODATION, PERRL - ENT Exam ENT Exam: Mucous Membranes Moist, Normal Exam - Neck Exam Neck Exam: Full ROM, Normal Inspection. absent: Lymphadenopathy - Respiratory Exam Respiratory Exam: Prolonged Expiratory Phase, NORMAL BREATHING PATTERN - Cardiovascular Exam Cardiovascular Exam: REGULAR RHYTHM, +S1, +S2. absent: Murmur - GI/Abdominal Exam GI & Abdominal Exam: Soft, Normal Bowel Sounds. absent: Tenderness - Rectal Exam Rectal Exam: NORMAL INSPECTION - Extremities Exam Extremities Exam: Full ROM, Normal Capillary Refill, Normal Inspection. absent: Joint Swelling, Pedal Edema - Back Exam Back Exam: NORMAL INSPECTION - Neurological Exam Neurological Exam: Alert, Awake, CN II-XII Intact, Normal Gait - Psychiatric Exam Psychiatric exam: Normal Affect, Normal Mood - Skin Skin Exam: Dry, Intact, Normal Color, Warm Assessment and Plan - Assessment and Plan (Free Text) Assessment: RESP FAILURE IMPROVED PNEUMONIA Plan: CONTINUE IV ANTIBIOTICS FOR 1 MORE WEEK SERIAL CXRS
[2018-11-18] MEDS: Insulin Lispro (humaLOG) 100 Units/ml Inj SC SCH ×4 (09:47→22:03)
[2018-11-18] MEDS: Potassium Chloride 20 mEq ER Tab PO SCH (09:48)
[2018-11-18] MEDS: Pantoprazole 40 mg EC Tab PO SCH (09:53)
[2018-11-18] MEDS: Lactobacillus Acidophilus 500 MU Cap PO SCH ×2 (12:36→17:04)
--- NOTE | 2018-11-18 15:11 | CP.PCM.PN ---
Subjective - Date & Time of Evaluation Date of Evaluation: 11/18/18 Time of Evaluation: 08:00 - Subjective Subjective: slow progress no fever awake alert Objective - Vital Signs/Intake and Output Vital Signs (last 24 hours): Temp Pulse Resp BP Pulse Ox 98.4 F 67 20 91/58 L 94 L 11/18/18 11:56 11/18/18 11:56 11/18/18 11:56 11/18/18 11:56 11/18/18 11:56 - Medications Medications: Current Medications Acetaminophen (Tylenol 650mg/20.3ml Solution Ud) 650 mg NG Q6 PRN PRN Reason: fever: temp of > 100.4 F Last Admin: 11/11/18 20:16 Dose: 650 mg Albuterol/Ipratropium (Duoneb 3 Mg/0.5 Mg (3 Ml) Ud) 3 ml INH Q6H [facility] Last Admin: 11/18/18 13:33 Dose: 3 ml Carvedilol (Coreg) 3.125 mg PO Q12 [facility] Last Admin: 11/18/18 09:44 Dose: 3.125 mg Dextrose (Dextrose 50% Inj) 0 ml IV STAT PRN; Protocol PRN Reason: Hypoglycemia Protocol Dextrose (Glutose 15) 0 gm PO ONCE PRN; Protocol PRN Reason: Hypoglycemia Protocol Furosemide (Lasix) 40 mg IV DAILY [facility] Last Admin: 11/18/18 09:48 Dose: 40 mg Glucagon (Glucagen Diagnostic Kit) 0 mg IM STAT PRN; Protocol PRN Reason: Hypoglycemia Protocol Meropenem 1 gm/ Sodium (Chloride) 100 mls @ 100 mls/hr IVPB Q8 [facility]; Protocol Last Admin: 11/18/18 09:00 Dose: 100 mls/hr Insulin Human Lispro (Humalog) 0 units SC ACHS [facility]; Protocol Last Admin: 11/18/18 12:37 Dose: 1 unit Lactobacillus Acidophilus (Bacid Acidophilus) 1 cap PO BID [facility] Last Admin: 11/18/18 12:36 Dose: 1 cap Levothyroxine Sodium (Synthroid) 37.5 mcg PO DAILY@0630 [facility] Last Admin: 11/18/18 06:35 Dose: 37.5 mcg Losartan Potassium (Cozaar) 25 mg PO DAILY [facility] Last Admin: 11/18/18 09:45 Dose: 25 mg Pantoprazole Sodium (Protonix Ec Tab) 40 mg PO DAILY [facility] Last Admin: 11/18/18 09:53 Dose: 40 mg Potassium Chloride (K-Dur 20 Meq Er Tab) 20 meq PO DAILY [facility] Last Admin: 11/18/18 09:48 Dose: 20 meq Risperidone (Risperdal Tab) 0.5 mg PO Q12 PRN PRN Reason: Agitation Spironolactone (Aldactone) 12.5 mg PO DAILY [facility] Last Admin: 11/18/18 09:44 Dose: 12.5 mg - Labs Labs: 11/18/18 04:20 11/18/18 04:20 PT 11.8 Seconds (9.8-13.1) 11/05/18 21:00 INR 1.0 11/05/18 21:00 APTT 37.4 Seconds (25.6-37.1) H 11/05/18 21:00 - Constitutional Appears: Non-toxic, Chronically Ill - Head Exam Head Exam: NORMOCEPHALIC - Eye Exam Eye Exam: absent: Scleral icterus - ENT Exam ENT Exam: Mucous Membranes Dry - Neck Exam Neck Exam: absent: Lymphadenopathy - Respiratory Exam Respiratory Exam: Decreased Breath Sounds - Cardiovascular Exam Cardiovascular Exam: REGULAR RHYTHM - GI/Abdominal Exam GI & Abdominal Exam: Distended, Soft. absent: Tenderness - Rectal Exam Rectal Exam: Deferred - Exam Exam: NORMAL INSPECTION - Extremities Exam Extremities Exam: absent: Pedal Edema - Back Exam Back Exam: absent: CVA tenderness (L), CVA tenderness (R) - Neurological Exam Neurological Exam: Alert, Awake, CN II-XII Intact Assessment and Plan (1) CHF (congestive heart failure) Status: Acute (2) Dehydration Status: Acute (3) Pneumonia Status: Acute (4) Respiratory failure Status: Acute (5) Sepsis Status: Acute (6) UTI (urinary tract infection) Status: Acute - Assessment and Plan (Free Text) Assessment: cont rx as per Dr Reeves
--- NOTE | 2018-11-18 19:08 | CP.PCM.PN ---
Subjective - Date & Time of Evaluation Date of Evaluation: 11/18/18 Time of Evaluation: 19:07 - Subjective Subjective: sob improving Objective - Vital Signs/Intake and Output Vital Signs (last 24 hours): Temp Pulse Resp BP Pulse Ox 97.7 F 81 17 97/63 L 98 11/18/18 15:39 11/18/18 15:39 11/18/18 15:39 11/18/18 15:39 11/18/18 15:39 - Medications Medications: Current Medications Acetaminophen (Tylenol 650mg/20.3ml Solution Ud) 650 mg NG Q6 PRN PRN Reason: fever: temp of > 100.4 F Last Admin: 11/11/18 20:16 Dose: 650 mg Albuterol/Ipratropium (Duoneb 3 Mg/0.5 Mg (3 Ml) Ud) 3 ml INH Q6H [facility] Last Admin: 11/18/18 13:33 Dose: 3 ml Carvedilol (Coreg) 3.125 mg PO Q12 [facility] Last Admin: 11/18/18 09:44 Dose: 3.125 mg Dextrose (Dextrose 50% Inj) 0 ml IV STAT PRN; Protocol PRN Reason: Hypoglycemia Protocol Dextrose (Glutose 15) 0 gm PO ONCE PRN; Protocol PRN Reason: Hypoglycemia Protocol Furosemide (Lasix) 40 mg IV DAILY [facility] Last Admin: 11/18/18 09:48 Dose: 40 mg Glucagon (Glucagen Diagnostic Kit) 0 mg IM STAT PRN; Protocol PRN Reason: Hypoglycemia Protocol Meropenem 1 gm/ Sodium (Chloride) 100 mls @ 100 mls/hr IVPB Q8 [facility]; Protocol Last Admin: 11/18/18 17:06 Dose: 100 mls/hr Insulin Human Lispro (Humalog) 0 units SC ACHS [facility] [place]; Protocol Last Admin: 11/18/18 17:01 Dose: Not Given Lactobacillus Acidophilus (Bacid Acidophilus) 1 cap PO BID [facility] [place] Last Admin: 11/18/18 17:04 Dose: 1 cap Levothyroxine Sodium (Synthroid) 37.5 mcg PO DAILY@0630 [facility] Last Admin: 11/18/18 06:35 Dose: 37.5 mcg Losartan Potassium (Cozaar) 25 mg PO DAILY [facility] [place] Last Admin: 11/18/18 09:45 Dose: 25 mg Pantoprazole Sodium (Protonix Ec Tab) 40 mg PO DAILY [facility] [place] Last Admin: 11/18/18 09:53 Dose: 40 mg Potassium Chloride (K-Dur 20 Meq Er Tab) 20 meq PO DAILY [facility] Last Admin: 11/18/18 09:48 Dose: 20 meq Risperidone (Risperdal Tab) 0.5 mg PO Q12 PRN PRN Reason: Agitation Spironolactone (Aldactone) 12.5 mg PO DAILY [facility] Last Admin: 11/18/18 09:44 Dose: 12.5 mg - Labs Labs: 11/18/18 04:20 11/18/18 04:20 PT 11.8 Seconds (9.8-13.1) 11/05/18 21:00 INR 1.0 11/05/18 21:00 APTT 37.4 Seconds (25.6-37.1) H 11/05/18 21:00 - Constitutional Appears: Well - Head Exam Head Exam: ATRAUMATIC, NORMAL INSPECTION, NORMOCEPHALIC - Eye Exam Eye Exam: EOMI, Normal appearance, PERRL Pupil Exam: NORMAL ACCOMODATION, PERRL - ENT Exam ENT Exam: Mucous Membranes Moist, Normal Exam - Neck Exam Neck Exam: Full ROM, Normal Inspection. absent: Lymphadenopathy - Respiratory Exam Respiratory Exam: Clear to Ausculation Bilateral, NORMAL BREATHING PATTERN - Cardiovascular Exam Cardiovascular Exam: REGULAR RHYTHM, +S1, +S2. absent: Murmur - GI/Abdominal Exam GI & Abdominal Exam: Soft, Normal Bowel Sounds. absent: Tenderness - Extremities Exam Extremities Exam: Full ROM, Normal Capillary Refill, Normal Inspection. absent: Joint Swelling, Pedal Edema - Back Exam Back Exam: NORMAL INSPECTION - Neurological Exam Neurological Exam: Alert, Awake, CN II-XII Intact, Normal Gait, Oriented x3 - Psychiatric Exam Psychiatric exam: Normal Affect, Normal Mood - Skin Skin Exam: Dry, Intact, Normal Color, Warm Assessment and Plan (1) CHF (congestive heart failure) Status: Acute (2) Dehydration Status: Acute (3) Pneumonia Status: Acute (4) Respiratory failure Status: Acute (5) Severe sepsis Status: Acute (6) UTI (urinary tract infection) Status: Acute
[2018-11-19] MEDS: Albuterol-Ipratrop 3 mg / 0.5 (3 ml) UD INH SCH ×4 (01:06→20:24)
[2018-11-19] MEDS: Meropenem 1 GM in Sodium Chloride 0.9% 100 ML IVPB SCH ×3 (01:30→16:33)
[2018-11-19] MEDS: Levothyroxine 75 MCG TAB PO SCH (05:46)
[2018-11-19 07:47] LABS: HEMOGLOBIN 12.2 g/dL (12.0-16.0); MEAN CORPUSCULAR HGB CONC 31.3 g/dL (33.0-37.0); RBC 4.7 Mil/uL (3.80-5.20); RED CELL DISTRIBUTION WIDTH 20.2 % (11.5-14.5); WHITE BLOOD COUNT 4.2 K/uL (4.8-10.8)
[2018-11-19 08:06] LABS: ALB/GLOB RATIO 0.9 (1.0-2.1); ALT/SGPT 46 U/L (9-52); AST/SGOT 37 U/L (14-36); BLOOD UREA NITROGEN 17 mg/dl (7-17); CALCIUM 8.9 mg/dL (8.4-10.2); GFR NON-AFRICAN AMERICAN > 60
[2018-11-19] MEDS: Potassium Chloride 20 mEq ER Tab PO SCH (08:24)
[2018-11-19] MEDS: Pantoprazole 40 mg EC Tab PO SCH (08:24)
[2018-11-19] MEDS: Insulin Lispro (humaLOG) 100 Units/ml Inj SC SCH ×4 (08:25→22:00)
--- NOTE | 2018-11-19 08:26 | CP.PCM.PN ---
Subjective - Date & Time of Evaluation Date of Evaluation: 11/19/18 Time of Evaluation: 08:26 - Subjective Subjective: SOB IMPROVED AWAKE AND ALERT VSS Objective - Vital Signs/Intake and Output Vital Signs (last 24 hours): Temp Pulse Resp BP Pulse Ox 97.4 F L 85 20 139/72 95 11/19/18 08:12 11/19/18 08:12 11/19/18 08:12 11/19/18 08:12 11/19/18 08:12 Intake and Output: 11/19/18 11/19/18 06:59 18:59 Intake Total 1400 Output Total 2 Balance 1398 - Medications Medications: Current Medications Acetaminophen (Tylenol 650mg/20.3ml Solution Ud) 650 mg NG Q6 PRN PRN Reason: fever: temp of > 100.4 F Last Admin: 11/11/18 20:16 Dose: 650 mg Albuterol/Ipratropium (Duoneb 3 Mg/0.5 Mg (3 Ml) Ud) 3 ml INH Q6H [facility] Last Admin: 11/19/18 07:46 Dose: 3 ml Carvedilol (Coreg) 3.125 mg PO Q12 [facility] Last Admin: 11/18/18 21:29 Dose: 3.125 mg Dextrose (Dextrose 50% Inj) 0 ml IV STAT PRN; Protocol PRN Reason: Hypoglycemia Protocol Dextrose (Glutose 15) 0 gm PO ONCE PRN; Protocol PRN Reason: Hypoglycemia Protocol Furosemide (Lasix) 40 mg IV DAILY [facility] Last Admin: 11/18/18 09:48 Dose: 40 mg Glucagon (Glucagen Diagnostic Kit) 0 mg IM STAT PRN; Protocol PRN Reason: Hypoglycemia Protocol Meropenem 1 gm/ Sodium (Chloride) 100 mls @ 100 mls/hr IVPB Q8 [facility]; Protocol Last Admin: 11/19/18 01:30 Dose: 100 mls/hr Insulin Human Lispro (Humalog) 0 units SC ACHS [facility]; Protocol Last Admin: 11/18/18 22:03 Dose: Not Given Lactobacillus Acidophilus (Bacid Acidophilus) 1 cap PO BID [facility] Last Admin: 11/18/18 17:04 Dose: 1 cap Levothyroxine Sodium (Synthroid) 37.5 mcg PO DAILY@0630 [facility] Last Admin: 11/19/18 05:46 Dose: 37.5 mcg Losartan Potassium (Cozaar) 25 mg PO DAILY [facility] Last Admin: 11/18/18 09:45 Dose: 25 mg Pantoprazole Sodium (Protonix Ec Tab) 40 mg PO DAILY [facility] Last Admin: 11/18/18 09:53 Dose: 40 mg Potassium Chloride (K-Dur 20 Meq Er Tab) 20 meq PO DAILY [facility] Last Admin: 11/18/18 09:48 Dose: 20 meq Risperidone (Risperdal Tab) 0.5 mg PO Q12 PRN PRN Reason: Agitation Spironolactone (Aldactone) 12.5 mg PO DAILY [facility] Last Admin: 11/18/18 09:44 Dose: 12.5 mg - Labs Labs: 11/19/18 07:39 11/19/18 07:39 PT 11.8 Seconds (9.8-13.1) 11/05/18 21:00 INR 1.0 11/05/18 21:00 APTT 37.4 Seconds (25.6-37.1) H 11/05/18 21:00 - Constitutional Appears: No Acute Distress - Head Exam Head Exam: ATRAUMATIC, NORMAL INSPECTION, NORMOCEPHALIC - Eye Exam Eye Exam: EOMI, Normal appearance, PERRL Pupil Exam: NORMAL ACCOMODATION, PERRL - ENT Exam ENT Exam: Mucous Membranes Moist, Normal Exam - Neck Exam Neck Exam: Full ROM, Normal Inspection. absent: Lymphadenopathy - Respiratory Exam Respiratory Exam: Decreased Breath Sounds, Prolonged Expiratory Phase, Rales, NORMAL BREATHING PATTERN - Cardiovascular Exam Cardiovascular Exam: REGULAR RHYTHM, +S1, +S2. absent: Murmur - GI/Abdominal Exam GI & Abdominal Exam: Soft, Normal Bowel Sounds. absent: Tenderness - Rectal Exam Rectal Exam: NORMAL INSPECTION - Extremities Exam Extremities Exam: Full ROM, Normal Capillary Refill, Normal Inspection. absent: Joint Swelling, Pedal Edema - Back Exam Back Exam: NORMAL INSPECTION - Neurological Exam Neurological Exam: Alert, Awake, CN II-XII Intact, Normal Gait, Oriented x3 - Psychiatric Exam Psychiatric exam: Normal Affect, Normal Mood - Skin Skin Exam: Dry, Intact, Normal Color, Warm Assessment and Plan - Assessment and Plan (Free Text) Assessment: CHF RESP FAILURE IMPROVED PNEUMONIA Plan: REPEAT CXR WILL BENEFIT FROM [facility]ARE
[2018-11-19] MEDS: Lactobacillus Acidophilus 500 MU Cap PO SCH ×2 (08:29→16:32)
--- NOTE | 2018-11-19 09:18 | CP.PCM.PN ---
<Sultan Gianfranco - Last Filed: 11/19/18 10:52> Subjective - Date & Time of Evaluation Date of Evaluation: 11/19/18 Time of Evaluation: 08:55 - Subjective Subjective: Patient seen and examined with Dr. Zhang this morning. Patient is awake and alert, NAD Watching TV Afebrile with stable vitals Denies any acute complaints. No chest pain, dyspnea, fever or chills. Will get PICC line for IV abx. Objective - Vital Signs/Intake and Output Vital Signs (last 24 hours): Temp Pulse Resp BP Pulse Ox 97.4 F L 85 20 139/72 95 11/19/18 08:12 11/19/18 08:25 11/19/18 08:12 11/19/18 08:25 11/19/18 08:12 Intake and Output: 11/19/18 11/19/18 06:59 18:59 Intake Total 1400 Output Total 2 Balance 1398 - Medications Medications: Current Medications Acetaminophen (Tylenol 650mg/20.3ml Solution Ud) 650 mg NG Q6 PRN PRN Reason: fever: temp of > 100.4 F Last Admin: 11/11/18 20:16 Dose: 650 mg Albuterol/Ipratropium (Duoneb 3 Mg/0.5 Mg (3 Ml) Ud) 3 ml INH Q6H [facility] Last Admin: 11/19/18 07:46 Dose: 3 ml Carvedilol (Coreg) 3.125 mg PO Q12 [facility] Last Admin: 11/19/18 08:24 Dose: 3.125 mg Dextrose (Dextrose 50% Inj) 0 ml IV STAT PRN; Protocol PRN Reason: Hypoglycemia Protocol Dextrose (Glutose 15) 0 gm PO ONCE PRN; Protocol PRN Reason: Hypoglycemia Protocol Furosemide (Lasix) 40 mg IV DAILY [facility] Last Admin: 11/19/18 08:23 Dose: 40 mg Glucagon (Glucagen Diagnostic Kit) 0 mg IM STAT PRN; Protocol PRN Reason: Hypoglycemia Protocol Meropenem 1 gm/ Sodium (Chloride) 100 mls @ 100 mls/hr IVPB Q8 [facility]; Protocol Last Admin: 11/19/18 08:30 Dose: 100 mls/hr Insulin Human Lispro (Humalog) 0 units SC ACHS [facility]; Protocol Last Admin: 11/19/18 08:25 Dose: 1 unit Lactobacillus Acidophilus (Bacid Acidophilus) 1 cap PO BID [facility] Last Admin: 11/19/18 08:29 Dose: 1 cap Levothyroxine Sodium (Synthroid) 37.5 mcg PO DAILY@0630 [facility] Last Admin: 11/19/18 05:46 Dose: 37.5 mcg Losartan Potassium (Cozaar) 25 mg PO DAILY [facility] Last Admin: 11/19/18 08:25 Dose: 25 mg Pantoprazole Sodium (Protonix Ec Tab) 40 mg PO DAILY [facility] Last Admin: 11/19/18 08:24 Dose: 40 mg Potassium Chloride (K-Dur 20 Meq Er Tab) 20 meq PO DAILY [facility] Last Admin: 11/19/18 08:24 Dose: 20 meq Risperidone (Risperdal Tab) 0.5 mg PO Q12 PRN PRN Reason: Agitation Last Admin: 11/19/18 08:24 Dose: 0.5 mg Spironolactone (Aldactone) 12.5 mg PO DAILY [facility] Last Admin: 11/19/18 08:23 Dose: 12.5 mg - Labs Labs: 11/19/18 07:39 11/19/18 07:39 PT 11.8 Seconds (9.8-13.1) 11/05/18 21:00 INR 1.0 11/05/18 21:00 APTT 37.4 Seconds (25.6-37.1) H 11/05/18 21:00 - Constitutional Appears: No Acute Distress - Head Exam Head Exam: NORMAL INSPECTION - Eye Exam Eye Exam: Normal appearance - ENT Exam ENT Exam: Mucous Membranes Moist - Respiratory Exam Respiratory Exam: Clear to Ausculation Bilateral, NORMAL BREATHING PATTERN. absent: Rhonchi, Wheezes, Respiratory Distress - Cardiovascular Exam Cardiovascular Exam: REGULAR RHYTHM, +S1, +S2 - GI/Abdominal Exam GI & Abdominal Exam: Soft, Normal Bowel Sounds. absent: Tenderness Additional comments: obese - Extremities Exam Extremities Exam: Normal Inspection. absent: Calf Tenderness - Neurological Exam Neurological Exam: Alert, Awake - Psychiatric Exam Psychiatric exam: Normal Affect, Normal Mood - Skin Skin Exam: Normal Color, Warm Assessment and Plan - Assessment and Plan (Free Text) Assessment: 82 yo F with hx HTN, CHF, DM, hypothyroidism, pacemaker, admitted due to respiratory failure after being sent from [facility]. Patient was extubated briefly on 11/10/18 but reintubated due to respiratory distress. Patient was extubated on 11/12/18 and transferred to Telemetry on 11/15/18, doing well on [place] oxygen. Plan: -Pulmonary consult, Dr. Reeves. Recommendation appreciated. -c/w [place] oxygen, Duoneb and IV meropenem -CHF, pacemaker - cardio consult - Dr. Kim. Recs appreciated. -Psychiatry consult, Dr. Weller, recommendation appreciated. -ID consult, Dr. Chiu, recs appreciated. -Presumed tx for hospital acquired infections -c/w IV Meropenem -blood cx on 11/09/18: No growth after 5 days -Urine cx on 11/05/18: E coli. sensitive to meropenem. -Insulin coverage scale and hypoglycemia protocol -Resume home meds -Prophylaxis: Pantoprazole and Lovenox -continue with PT/OT -Rest of the plan as ordered. Patient seen, examined and plan d/w Dr. Leatha Medel, pgy-2 <Nakul Zhang - Last Filed: 11/19/18 15:42> Objective - Vital Signs/Intake and Output Vital Signs (last 24 hours): Temp Pulse Resp BP Pulse Ox 98.4 F 76 20 113/70 99 11/19/18 13:21 11/19/18 13:21 11/19/18 13:21 11/19/18 13:21 11/19/18 13:21 - Medications Medications: Current Medications Acetaminophen (Tylenol 650mg/20.3ml Solution Ud) 650 mg NG Q6 PRN PRN Reason: fever: temp of > 100.4 F Last Admin: 11/11/18 20:16 Dose: 650 mg Albuterol/Ipratropium (Duoneb 3 Mg/0.5 Mg (3 Ml) Ud) 3 ml INH Q6H [facility] Last Admin: 11/19/18 13:34 Dose: 3 ml Carvedilol (Coreg) 3.125 mg PO Q12 [facility] Last Admin: 11/19/18 08:24 Dose: 3.125 mg Dextrose (Dextrose 50% Inj) 0 ml IV STAT PRN; Protocol PRN Reason: Hypoglycemia Protocol Dextrose (Glutose 15) 0 gm PO ONCE PRN; Protocol PRN Reason: Hypoglycemia Protocol Enoxaparin Sodium (Lovenox) 40 mg SC DAILY [facility]; Protocol Furosemide (Lasix) 40 mg IV DAILY [facility] Last Admin: 11/19/18 08:23 Dose: 40 mg Glucagon (Glucagen Diagnostic Kit) 0 mg IM STAT PRN; Protocol PRN Reason: Hypoglycemia Protocol Meropenem 1 gm/ Sodium (Chloride) 100 mls @ 100 mls/hr IVPB Q8 [facility]; Protocol Last Admin: 11/19/18 08:30 Dose: 100 mls/hr Insulin Human Lispro (Humalog) 0 units SC ACHS [facility]; Protocol Last Admin: 11/19/18 12:18 Dose: 2 unit Lactobacillus Acidophilus (Bacid Acidophilus) 1 cap PO BID [facility] Last Admin: 11/19/18 08:29 Dose: 1 cap Levothyroxine Sodium (Synthroid) 37.5 mcg PO DAILY@0630 [facility] Last Admin: 11/19/18 05:46 Dose: 37.5 mcg Losartan Potassium (Cozaar) 25 mg PO DAILY [facility] Last Admin: 11/19/18 08:25 Dose: 25 mg Pantoprazole Sodium (Protonix Ec Tab) 40 mg PO DAILY [facility] Last Admin: 11/19/18 08:24 Dose: 40 mg Potassium Chloride (K-Dur 20 Meq Er Tab) 20 meq PO DAILY [facility] Last Admin: 11/19/18 08:24 Dose: 20 meq Risperidone (Risperdal Tab) 0.5 mg PO Q12 PRN PRN Reason: Agitation Last Admin: 11/19/18 08:24 Dose: 0.5 mg Spironolactone (Aldactone) 12.5 mg PO DAILY [facility] Last Admin: 11/19/18 08:23 Dose: 12.5 mg - Labs Labs: 11/19/18 07:39 11/19/18 07:39 PT 11.8 Seconds (9.8-13.1) 11/05/18 21:00 INR 1.0 11/05/18 21:00 APTT 37.4 Seconds (25.6-37.1) H 11/05/18 21:00 Assessment and Plan - Assessment and Plan (Free Text) Assessment: Patient was personally seen and examined by me in rounds with residents. Available labs and diagnostic data reviewed. Case, Patient's condition and management plan discussed with residents in rounds. Agree with resident's progress note. Plan: As ordered.
--- NOTE | 2018-11-19 09:24 | RAD ---
Date of service: 11/19/2018 PROCEDURE: CHEST RADIOGRAPH, 1 VIEW HISTORY: PNEUMONIA COMPARISON: 11/16/2018 FINDINGS: LUNGS: Shallow lung volumes. More now than before. Prior right basal patchy airspace opacity less conspicuous-improved aeration here inferred. Interval bandlike coalescing opacities left mid lung zone interval atelectasis favored; the interval increase left pleural effusion suggested. PLEURA: Interval increase left pleural effusion. Pneumothorax noted CARDIOVASCULAR: There is presence of aortic atherosclerotic calcification on x-ray. Cardiomegaly-similarPosition/ configuration of pacemaker Appears appropriate and similar pulmonary venous congestion similar to slightly increased-the more current shallow lung volumes accentuate their crowded appearance Widened superior mediastinum without gross tracheal compromise or deviation-stable in appearance-. Prominent brachiocephalic vessels inferred. OSSEOUS STRUCTURES: Thoracic spondylosis bilateral shoulder arthrosis VISUALIZED UPPER ABDOMEN: Normal. OTHER FINDINGS: None. IMPRESSION: Interval improved aeration-right lung base. Interval atelectasis left mid lung zone subsegmental. Interval increase left pleural effusion-yet still small. Interval increased pulmonary venous congestion. Cardiomegaly similar.
--- NOTE | 2018-11-19 14:52 | VASCULAR ---
PROCEDURE: Date of procedure: 11/13/2018 Procedure: 1. Placement of a left arm PICC with ultrasound and fluoroscopic guidance, CPT 45890 2. PICC tip confirmation with spot radiograph and is in the axillary vein Medications: 3cc 1 percent lidocaine Total Fluoro time: 25.2 Seconds Radiation:4.67 MGy EBL: 3 cc HISTORY: Poor venous access TECHNIQUE: Following informed consent and procedure time-out, the patient placed supine on the interventional table and the left arm prepped and draped in the usual sterile fashion. Right arm was slightly contracted. Ultrasound showed a patent and compressible left basilic vein. After the skin was anesthetized with lidocaine, the basilic vein was accessed with micro micropuncture technique using ultrasound guidance. A guidewire was then advanced under fluoroscopic guidance centrally. 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 A left chest pacemaker is in place. An image documenting ultrasound guidance for vascular access was permanently saved. The length of a dual-lumen 5 [place] PICC was trimmed to 22 cm and advanced through a peel-away sheath. The PICC was position with tip of PICC confirm a spot radiograph the 3 vein. The PICC was secured to the patient's skin. The PICC was flushed. A biopatch and sterile dressing was applied. IMPRESSION: Placement of a dual-lumen 5 [place] PICC left basilic vein trimmed to 22 cm. The tip of the PICC is confirmed with spot radiograph and is in the axillary vein.
[2018-11-20] MEDS: Meropenem 1 GM in Sodium Chloride 0.9% 100 ML IVPB SCH ×3 (00:08→16:08)
[2018-11-20 05:42] LABS: HEMOGLOBIN 11.6 g/dL (12.0-16.0); MEAN CELL VOLUME 83.3 fl (81.0-99.0); MEAN CORPUSCULAR HEMOGLOBIN 25.9 pg (27.0-31.0); MEAN CORPUSCULAR HGB CONC 31.1 g/dL (33.0-37.0); RBC 4.47 Mil/uL (3.80-5.20); RED CELL DISTRIBUTION WIDTH 19.7 % (11.5-14.5)
[2018-11-20 05:53] LABS: ALBUMIN 2.9 g/dL (3.5-5.0); ALT/SGPT 33 U/L (9-52); AST/SGOT 27 U/L (14-36); BLOOD UREA NITROGEN 20 mg/dl (7-17); GFR NON-AFRICAN AMERICAN > 60
[2018-11-20] MEDS: Levothyroxine 75 MCG TAB PO SCH (06:53)
[2018-11-20] MEDS: Insulin Lispro (humaLOG) 100 Units/ml Inj SC SCH ×2 (07:03→12:51)
[2018-11-20] MEDS: Albuterol-Ipratrop 3 mg / 0.5 (3 ml) UD INH SCH ×2 (08:19→13:20)
[2018-11-20] MEDS: Lactobacillus Acidophilus 500 MU Cap PO SCH ×2 (08:20→16:08)
[2018-11-20] MEDS: Potassium Chloride 20 mEq ER Tab PO SCH (08:22)
[2018-11-20] MEDS: Pantoprazole 40 mg EC Tab PO SCH (08:22)
--- NOTE | 2018-11-20 08:52 | CP.PCM.PN ---
Subjective - Date & Time of Evaluation Date of Evaluation: 11/20/18 Time of Evaluation: 08:05 - Subjective Subjective: Patient seen and examined this morning with Dr. Hatch. Patient is awake and alert, NAD Denies any acute complaints. No chest pain, dyspnea, fever or chills. PICC line today. Objective - Vital Signs/Intake and Output Vital Signs (last 24 hours): Temp Pulse Resp BP Pulse Ox 98.3 F 101 H 20 110/68 90 L 11/20/18 07:50 11/20/18 08:25 11/20/18 07:50 11/20/18 08:25 11/20/18 07:50 - Medications Medications: Current Medications Acetaminophen (Tylenol 650mg/20.3ml Solution Ud) 650 mg NG Q6 PRN PRN Reason: fever: temp of > 100.4 F Last Admin: 11/11/18 20:16 Dose: 650 mg Albuterol/Ipratropium (Duoneb 3 Mg/0.5 Mg (3 Ml) Ud) 3 ml INH Q6H [facility] Last Admin: 11/20/18 08:19 Dose: 3 ml Carvedilol (Coreg) 3.125 mg PO Q12 [facility] Last Admin: 11/20/18 08:25 Dose: 3.125 mg Dextrose (Dextrose 50% Inj) 0 ml IV STAT PRN; Protocol PRN Reason: Hypoglycemia Protocol Dextrose (Glutose 15) 0 gm PO ONCE PRN; Protocol PRN Reason: Hypoglycemia Protocol Enoxaparin Sodium (Lovenox) 40 mg SC DAILY [facility]; Protocol Last Admin: 11/20/18 08:21 Dose: 40 mg Furosemide (Lasix) 40 mg IV DAILY [facility] Last Admin: 11/20/18 08:21 Dose: 40 mg Glucagon (Glucagen Diagnostic Kit) 0 mg IM STAT PRN; Protocol PRN Reason: Hypoglycemia Protocol Meropenem 1 gm/ Sodium (Chloride) 100 mls @ 100 mls/hr IVPB Q8 [facility]; Protocol Last Admin: 11/20/18 08:22 Dose: 100 mls/hr Insulin Human Lispro (Humalog) 0 units SC ACHS [facility]; Protocol Last Admin: 11/20/18 07:03 Dose: Not Given Lactobacillus Acidophilus (Bacid Acidophilus) 1 cap PO BID [facility] Last Admin: 11/20/18 08:20 Dose: 1 cap Levothyroxine Sodium (Synthroid) 37.5 mcg PO DAILY@0630 [facility] Last Admin: 11/20/18 06:53 Dose: 37.5 mcg Losartan Potassium (Cozaar) 25 mg PO DAILY [facility] Last Admin: 11/20/18 08:23 Dose: 25 mg Pantoprazole Sodium (Protonix Ec Tab) 40 mg PO DAILY [facility] Last Admin: 11/20/18 08:22 Dose: 40 mg Potassium Chloride (K-Dur 20 Meq Er Tab) 20 meq PO DAILY [facility] Last Admin: 11/20/18 08:22 Dose: 20 meq Risperidone (Risperdal Tab) 0.5 mg PO Q12 PRN PRN Reason: Agitation Last Admin: 11/19/18 23:28 Dose: 0.5 mg Spironolactone (Aldactone) 12.5 mg PO DAILY [facility] Last Admin: 11/20/18 08:24 Dose: 12.5 mg - Labs Labs: 11/20/18 04:55 11/20/18 04:55 PT 11.8 Seconds (9.8-13.1) 11/05/18 21:00 INR 1.0 11/05/18 21:00 APTT 37.4 Seconds (25.6-37.1) H 11/05/18 21:00 - Constitutional Appears: No Acute Distress - Head Exam Head Exam: NORMAL INSPECTION - Eye Exam Eye Exam: Normal appearance - ENT Exam ENT Exam: Mucous Membranes Moist - Respiratory Exam Respiratory Exam: Clear to Ausculation Bilateral, NORMAL BREATHING PATTERN. absent: Rhonchi, Wheezes - Cardiovascular Exam Cardiovascular Exam: REGULAR RHYTHM, +S1, +S2 - GI/Abdominal Exam GI & Abdominal Exam: Soft, Normal Bowel Sounds. absent: Tenderness Additional comments: obese - Extremities Exam Extremities Exam: Normal Inspection. absent: Calf Tenderness, Pedal Edema - Neurological Exam Neurological Exam: Alert, Awake - Psychiatric Exam Psychiatric exam: Normal Affect, Normal Mood - Skin Skin Exam: Normal Color Assessment and Plan - Assessment and Plan (Free Text) Assessment: 82 yo F with hx HTN, CHF, DM, hypothyroidism, pacemaker, admitted due to respiratory failure after being sent from [facility]. Patient was extubated briefly on 11/10/18 but reintubated due to respiratory distress. Patient was extubated on 11/12/18 and transferred to Telemetry on 11/15/18, doing well on [place] oxygen. Pending discharge to [place] after PICC line for IV abx. Plan: -Pulmonary consult, Dr. Reeves. Recommendation appreciated. -c/w [place] oxygen, Duoneb and IV meropenem -CHF, pacemaker - cardio consult - Dr. Kim. Recs appreciated. -Psychiatry consult, Dr. Weller, recommendation appreciated. -ID consult, Dr. Chiu, recs appreciated. -Presumed tx for hospital acquired infections -c/w IV Meropenem -blood cx on 11/09/18: No growth after 5 days -Urine cx on 11/05/18: E coli. sensitive to meropenem. -Insulin coverage scale and hypoglycemia protocol -Resume home meds -Prophylaxis: Pantoprazole and Lovenox -continue with PT/OT -Rest of the plan as ordered. Patient seen, examined and plan d/w Dr.Jurado Sultan Medel, [id number]
[2018-11-20] MEDS ORDERED: Enoxaparin 40 mg Syringe SC SCH (09:00)
--- NOTE | 2018-11-20 11:48 | CP.PCM.PCO ---
Assessment & Plan - Assessment and Plan (Free Text) Assessment: 83 yr old F admitted w/ Respiratory failure s/p intubation/extubation, CHF, PNA , now improving chest xray f/u: interval improvement patient will require 1 more week of iv Abx for pneumonia Merrem 1gm iv q 8 hrs pt. for PICC line insertion today and then for d/c to [place] pending auth
--- NOTE | 2018-11-20 11:53 | CP.PCM.PN ---
Subjective - Date & Time of Evaluation Date of Evaluation: 11/20/18 Time of Evaluation: 11:53 - Subjective Subjective: CLINICALLY IMPROVED CXR REVIEWED Objective - Vital Signs/Intake and Output Vital Signs (last 24 hours): Temp Pulse Resp BP Pulse Ox 98.3 F 101 H 20 110/68 90 L 11/20/18 07:50 11/20/18 08:25 11/20/18 07:50 11/20/18 08:25 11/20/18 07:50 - Medications Medications: Current Medications Acetaminophen (Tylenol 650mg/20.3ml Solution Ud) 650 mg NG Q6 PRN PRN Reason: fever: temp of > 100.4 F Last Admin: 11/11/18 20:16 Dose: 650 mg Albuterol/Ipratropium (Duoneb 3 Mg/0.5 Mg (3 Ml) Ud) 3 ml INH Q6H [facility] Last Admin: 11/20/18 08:19 Dose: 3 ml Carvedilol (Coreg) 3.125 mg PO Q12 [facility] Last Admin: 11/20/18 08:25 Dose: 3.125 mg Dextrose (Dextrose 50% Inj) 0 ml IV STAT PRN; Protocol PRN Reason: Hypoglycemia Protocol Dextrose (Glutose 15) 0 gm PO ONCE PRN; Protocol PRN Reason: Hypoglycemia Protocol Enoxaparin Sodium (Lovenox) 40 mg SC DAILY [facility]; Protocol Last Admin: 11/20/18 08:21 Dose: 40 mg Furosemide (Lasix) 40 mg IV DAILY [facility] Last Admin: 11/20/18 08:21 Dose: 40 mg Glucagon (Glucagen Diagnostic Kit) 0 mg IM STAT PRN; Protocol PRN Reason: Hypoglycemia Protocol Meropenem 1 gm/ Sodium (Chloride) 100 mls @ 100 mls/hr IVPB Q8 [facility]; Protocol Last Admin: 11/20/18 08:22 Dose: 100 mls/hr Insulin Human Lispro (Humalog) 0 units SC ACHS [facility]; Protocol Last Admin: 11/20/18 07:03 Dose: Not Given Lactobacillus Acidophilus (Bacid Acidophilus) 1 cap PO BID [facility] Last Admin: 11/20/18 08:20 Dose: 1 cap Levothyroxine Sodium (Synthroid) 37.5 mcg PO DAILY@0630 [facility] Last Admin: 11/20/18 06:53 Dose: 37.5 mcg Losartan Potassium (Cozaar) 25 mg PO DAILY [facility] Last Admin: 11/20/18 08:23 Dose: 25 mg Pantoprazole Sodium (Protonix Ec Tab) 40 mg PO DAILY [facility] Last Admin: 11/20/18 08:22 Dose: 40 mg Potassium Chloride (K-Dur 20 Meq Er Tab) 20 meq PO DAILY [facility] Last Admin: 11/20/18 08:22 Dose: 20 meq Risperidone (Risperdal Tab) 0.5 mg PO Q12 PRN PRN Reason: Agitation Last Admin: 11/19/18 23:28 Dose: 0.5 mg Spironolactone (Aldactone) 12.5 mg PO DAILY [facility] Last Admin: 11/20/18 08:24 Dose: 12.5 mg - Labs Labs: 11/20/18 04:55 11/20/18 04:55 PT 11.8 Seconds (9.8-13.1) 11/05/18 21:00 INR 1.0 11/05/18 21:00 APTT 37.4 Seconds (25.6-37.1) H 11/05/18 21:00 - Constitutional Appears: No Acute Distress - Head Exam Head Exam: ATRAUMATIC, NORMAL INSPECTION, NORMOCEPHALIC - Eye Exam Eye Exam: EOMI, Normal appearance, PERRL Pupil Exam: NORMAL ACCOMODATION, PERRL - ENT Exam ENT Exam: Mucous Membranes Moist, Normal Exam - Neck Exam Neck Exam: Full ROM, Normal Inspection. absent: Lymphadenopathy - Respiratory Exam Respiratory Exam: Prolonged Expiratory Phase, Rales, NORMAL BREATHING PATTERN - Cardiovascular Exam Cardiovascular Exam: REGULAR RHYTHM, +S1, +S2. absent: Murmur - GI/Abdominal Exam GI & Abdominal Exam: Soft, Normal Bowel Sounds. absent: Tenderness - Rectal Exam Rectal Exam: NORMAL INSPECTION - Extremities Exam Extremities Exam: Full ROM, Normal Capillary Refill, Normal Inspection. absent: Joint Swelling, Pedal Edema - Back Exam Back Exam: NORMAL INSPECTION - Neurological Exam Neurological Exam: Alert, Awake, CN II-XII Intact, Normal Gait, Oriented x3 - Psychiatric Exam Psychiatric exam: Normal Affect, Normal Mood - Skin Skin Exam: Dry, Intact, Normal Color, Warm Assessment and Plan - Assessment and Plan (Free Text) Assessment: REP FAILURE RESOLVED PNEUMONIA WITH PLEURAL RXN IMPROVED Plan: OK TO D/C TO SUBACUTE CARE CONTINUE IV ANTIBIOTICS X 5 MORE DAYS SERIAL CXRS UNTIL PNEUMONIA COMPLETELY RESOLVES
[2018-11-20] MEDS ORDERED: Lidocaine 1% Inj (20ml) ONE (11:55)
--- NOTE | 2018-11-20 12:15 | PCM.SURG1 ---
Surgeon's Initial Post Op Note - Surgeon's Notes Surgeon: Nancy Ui Designer: None Type of Anesthesia: Local Pre-Operative Diagnosis: Infection Operative Findings: Patent right brachial vein Post-Operative Diagnosis: Infection Operation Performed: Right brachial vein 4F SL 35cm PICC placed with the tip in the SVC/RA junction. Specimen/Specimens Removed: None Estimated Blood Loss: EBL {In ML}: 1 Date of Surgery/Procedure: 11/20/18 Time of Surgery/Procedure: 12:10
--- NOTE | 2018-11-20 13:23 | VASCULAR ---
Procedure: Ultrasound and fluoroscopically placed Right upper extremity PICC. Clinical indication: Long-term IV antibiotics. Technique: The relative risks and indications of the procedure were explained to the patient and written informed consent obtained. The patient was placed supine on the angiographic table and the right arm prepped and draped in the usual sterile fashion. A tourniquet was applied to the right axilla. 1% lidocaine was used to anesthetize the skin and soft tissues at the puncture site above the elbow. The right basilic vein was punctured under direct ultrasound guidance with a micropuncture set. A permanent image was stored. A 0.018 guidewire was advanced centrally and used to measure the length to the SVC/RA junction. A 4 [place] single-lumen PICC, size 35 cm, was advanced to the SVC/RA junction under fluoroscopic guidance. The catheter was flushed and secured. The patient tolerated the procedure well. Postprocedure chest image was obtained to ensure location of the catheter tip at the SVC right atrial junction. Impression: Ultrasound and fluoroscopically placed right upper extremity PICC. A 4 [place] single-lumen PICC, size 35 cm was advanced to the SVC/RA junction. PICC ready for use.
--- NOTE | 2018-11-20 14:40 | CP.PCM.PN ---
Subjective - Date & Time of Evaluation Date of Evaluation: 11/20/18 Time of Evaluation: 08:00 - Subjective Subjective: improving weak bedridden no fever Objective - Vital Signs/Intake and Output Vital Signs (last 24 hours): Temp Pulse Resp BP Pulse Ox 98.4 F 101 H 19 130/68 98 11/20/18 12:28 11/20/18 12:28 11/20/18 12:28 11/20/18 12:28 11/20/18 12:28 - Medications Medications: Current Medications Acetaminophen (Tylenol 650mg/20.3ml Solution Ud) 650 mg NG Q6 PRN PRN Reason: fever: temp of > 100.4 F Last Admin: 11/11/18 20:16 Dose: 650 mg Albuterol/Ipratropium (Duoneb 3 Mg/0.5 Mg (3 Ml) Ud) 3 ml INH Q6H [facility] Last Admin: 11/20/18 13:20 Dose: Not Given Carvedilol (Coreg) 3.125 mg PO Q12 [facility] Last Admin: 11/20/18 08:25 Dose: 3.125 mg Dextrose (Dextrose 50% Inj) 0 ml IV STAT PRN; Protocol PRN Reason: Hypoglycemia Protocol Dextrose (Glutose 15) 0 gm PO ONCE PRN; Protocol PRN Reason: Hypoglycemia Protocol Enoxaparin Sodium (Lovenox) 40 mg SC DAILY [facility]; Protocol Last Admin: 11/20/18 08:21 Dose: 40 mg Furosemide (Lasix) 40 mg IV DAILY [facility] Last Admin: 11/20/18 08:21 Dose: 40 mg Glucagon (Glucagen Diagnostic Kit) 0 mg IM STAT PRN; Protocol PRN Reason: Hypoglycemia Protocol Meropenem 1 gm/ Sodium (Chloride) 100 mls @ 100 mls/hr IVPB Q8 [facility]; Protocol Last Admin: 11/20/18 08:22 Dose: 100 mls/hr Insulin Human Lispro (Humalog) 0 units SC ACHS [facility]; Protocol Last Admin: 11/20/18 12:51 Dose: 2 units Lactobacillus Acidophilus (Bacid Acidophilus) 1 cap PO BID [facility] Last Admin: 11/20/18 08:20 Dose: 1 cap Levothyroxine Sodium (Synthroid) 37.5 mcg PO DAILY@0630 [facility] Last Admin: 11/20/18 06:53 Dose: 37.5 mcg Losartan Potassium (Cozaar) 25 mg PO DAILY [facility] Last Admin: 11/20/18 08:23 Dose: 25 mg Pantoprazole Sodium (Protonix Ec Tab) 40 mg PO DAILY [facility] Last Admin: 11/20/18 08:22 Dose: 40 mg Potassium Chloride (K-Dur 20 Meq Er Tab) 20 meq PO DAILY [facility] Last Admin: 11/20/18 08:22 Dose: 20 meq Risperidone (Risperdal Tab) 0.5 mg PO Q12 PRN PRN Reason: Agitation Last Admin: 11/19/18 23:28 Dose: 0.5 mg Spironolactone (Aldactone) 12.5 mg PO DAILY [facility] Last Admin: 11/20/18 08:24 Dose: 12.5 mg - Labs Labs: 11/20/18 04:55 11/20/18 04:55 PT 11.8 Seconds (9.8-13.1) 11/05/18 21:00 INR 1.0 11/05/18 21:00 APTT 37.4 Seconds (25.6-37.1) H 11/05/18 21:00 - Constitutional Appears: Non-toxic, Chronically Ill - Head Exam Head Exam: NORMOCEPHALIC - Eye Exam Eye Exam: absent: Scleral icterus - ENT Exam ENT Exam: Normal External Ear Exam - Neck Exam Neck Exam: absent: Lymphadenopathy - Respiratory Exam Respiratory Exam: Decreased Breath Sounds - Cardiovascular Exam Cardiovascular Exam: REGULAR RHYTHM - GI/Abdominal Exam GI & Abdominal Exam: Distended, Soft - Rectal Exam Rectal Exam: Deferred - Exam Exam: NORMAL INSPECTION - Extremities Exam Extremities Exam: absent: Pedal Edema - Back Exam Back Exam: absent: CVA tenderness (L), CVA tenderness (R) - Neurological Exam Neurological Exam: Alert, Altered, Awake Assessment and Plan (1) CHF (congestive heart failure) Status: Acute (2) Dehydration Status: Acute (3) Pneumonia Status: Acute (4) Respiratory failure Status: Acute (5) Sepsis Status: Acute (6) UTI (urinary tract infection) Status: Acute - Assessment and Plan (Free Text) Assessment: cont rx HCAP d/c on Merrem for 5 days
--- NOTE | 2018-11-20 15:34 | CP.PCM.DIS ---
<Sultan Gianfranco - Last Filed: 11/20/18 16:14> Provider - Provider Date of Admission: 11/05/18 22:06 Attending physician: Nakul Zhang MD Consults: 11/15/18 14:06 Psychiatry Consult Routine Comment: Consulting Provider: Tristan Bird Consulting Physician: Tristan Bird Reason for Consult: agitation, confusion 11/06/18 08:21 Cardiology Consult Routine Comment: pacemaker at 87 bpm Consulting Provider: Douglas Kim Consulting Physician: Douglas Kim Reason for Consult: pacemaker at 87 bpm 11/06/18 09:00 Nursing Referral for Palliative Care Routine Comment: Consulting Provider: Claudia Yanez Physician Instructions: Reason For Exam: nsg screen Nursing Referral for Wound Care Routine Comment: Physician Instructions: Reason For Exam: nsg screen Pastoral Care Referral Routine Comment: Physician Instructions: Reason For Exam: nsg screen 11/07/18 08:42 Pulmonology Consult Routine Comment: Consulting Provider: Juancarlos Reeves I Consulting Physician: Juancarlos Reeves I Reason for Consult: resp failure, on vent 11/09/18 14:50 Infectious Disease Consult Routine Comment: vap Consulting Provider: Jose Chiu Consulting Physician: Jose Chiu Reason for Consult: vap Time Spent in preparation of Discharge (in minutes): 35 Diagnosis - Discharge Diagnosis (1) Hospital-acquired pneumonia Status: Acute (2) Sepsis Status: Resolved (3) Respiratory failure Status: Resolved Priority: High (4) CHF (congestive heart failure) Status: Chronic Priority: Medium (5) UTI (urinary tract infection) Status: Resolved Hospital Course - Lab Results Lab Results: Micro Results 11/14/18 08:40 Nose MRSA Culture (Admit) - Final MRSA NOT DETECTED 11/09/18 09:14 Blood-Venous Blood Culture - Final NO GROWTH AFTER 5 DAYS 11/09/18 09:14 Blood-Venous Gram Stain - Final TEST NOT PERFORMED 11/09/18 16:57 Trachasp Gram Stain - Final 11/09/18 16:57 Trachasp Sputum Culture - Final NORMAL ORAL JOAQUIN 11/05/18 23:15 Blood Blood Culture - Final NO GROWTH AFTER 5 DAYS 11/05/18 23:15 Blood Gram Stain - Final TEST NOT PERFORMED 11/05/18 21:00 Blood Blood Culture - Final NO GROWTH AFTER 5 DAYS 11/05/18 21:00 Blood Gram Stain - Final TEST NOT PERFORMED 11/07/18 14:30 Trachasp Gram Stain - Final 11/07/18 14:30 Trachasp Sputum Culture - Final NORMAL ORAL JOAQUIN 11/05/18 21:30 Urine,Catheterized Urine Culture - Final Escherichia Coli 11/06/18 14:00 Naris MRSA Culture (Admit) - Final MRSA NOT DETECTED Most Recent Lab Values WBC 5.0 K/uL (4.8-10.8) 11/20/18 04:55 RBC 4.47 Mil/uL (3.80-5.20) 11/20/18 04:55 Hgb 11.6 g/dL (12.0-16.0) L 11/20/18 04:55 Hct 37.2 % (34.0-47.0) 11/20/18 04:55 MCV 83.3 fl (81.0-99.0) 11/20/18 04:55 MCH 25.9 pg (27.0-31.0) L 11/20/18 04:55 MCHC 31.1 g/dL (33.0-37.0) L 11/20/18 04:55 RDW 19.7 % (11.5-14.5) H 11/20/18 04:55 Plt Count 175 K/uL (130-400) 11/20/18 04:55 MPV 9.4 fl (7.2-11.7) 11/14/18 06:30 Neut % (Auto) 59.6 % (50.0-75.0) 11/14/18 06:30 Lymph % (Auto) 22.8 % (20.0-40.0) 11/14/18 06:30 [place] % (Auto) 14.2 % (0.0-10.0) H 11/14/18 06:30 Eos % (Auto) 3.1 % (0.0-4.0) 11/14/18 06:30 Baso % (Auto) 0.3 % (0.0-2.0) 11/14/18 06:30 Neut # (Auto) 1.9 K/uL (1.8-7.0) 11/14/18 06:30 Lymph # (Auto) 0.7 K/uL (1.0-4.3) L 11/14/18 06:30 [place] # (Auto) 0.5 K/uL (0.0-0.8) 11/14/18 06:30 Eos # (Auto) 0.1 K/uL (0.0-0.7) 11/14/18 06:30 Baso # (Auto) 0.0 K/uL (0.0-0.2) 11/14/18 06:30 PT 11.8 Seconds (9.8-13.1) 11/05/18 21:00 INR 1.0 11/05/18 21:00 APTT 37.4 Seconds (25.6-37.1) H 11/05/18 21:00 pCO2 58 mm/Hg (35-45) H 11/13/18 04:14 pO2 62 mm/Hg (80-100) L 11/13/18 04:14 HCO3 31.8 mmol/L (21-28) H 11/13/18 04:14 ABG pH 7.40 (7.35-7.45) 11/13/18 04:14 ABG Total CO2 37.7 mmol/L (22-28) H 11/13/18 04:14 ABG O2 Saturation 93.7 % (95-98) L 11/13/18 04:14 ABG O2 Content 14.3 ML/dL (15-23) L 11/11/18 05:14 ABG Base Excess 9.0 mmol/L (-2.0-3.0) H 11/13/18 04:14 ABG Hemoglobin 10.9 g/dL (11.7-17.4) L 11/11/18 05:14 ABG Carboxyhemoglobin 1.8 % (0.5-1.5) H 11/11/18 05:14 POC ABG HHb (Measured) 3.8 % (0.0-5.0) 11/11/18 05:14 ABG Methemoglobin 1.1 % (0.0-3.0) 11/11/18 05:14 ABG O2 Capacity 14.9 mL/dL (16-24) L 11/11/18 05:14 Favian Test Yes 11/13/18 04:14 ABG Potassium 4.1 mmol/L (3.6-5.2) 11/13/18 04:14 VBG pH 7.40 (7.32-7.43) 11/12/18 17:02 VBG pCO2 56 mmHg (40-60) 11/12/18 17:02 VBG HCO3 30.2 mmol/L 11/12/18 17:02 VBG Total CO2 36.4 mmol/L (22-28) H 11/12/18 17:02 VBG O2 Sat (Calc) 73.3 % (40-65) H 11/12/18 17:02 VBG Base Excess 8.0 mmol/L (0.0-2.0) H 11/12/18 17:02 VBG Potassium 3.7 mmol/L (3.6-5.2) 11/12/18 17:02 A-a O2 Difference 79.0 mm/Hg 11/13/18 04:14 Hgb O2 Saturation 93.2 % (95.0-98.0) L 11/11/18 05:14 Sodium 143.0 mmol/L (132-148) 11/13/18 04:14 Chloride 109.0 mmol/L (98-107) H 11/13/18 04:14 Glucose 143 mg/dL (65-105) H 11/13/18 04:14 Lactate 0.7 mmol/L (0.7-2.1) 11/13/18 04:14 Vent Mode A/c 11/12/18 05:37 Mechanical Rate 14 11/12/18 05:37 FiO2 30.0 % 11/13/18 04:14 Tidal Volume 500 11/12/18 05:37 PEEP 5 11/12/18 05:37 Pressure Support 10 11/10/18 04:59 Crit Value Called To Rita bradley rn 11/08/18 04:58 Crit Value Called By Wendy 11/08/18 04:58 Crit Value Read Back Y 11/08/18 04:58 Blood Gas Notified Time 505 11/08/18 04:58 Sodium 136 mmol/l (132-148) 11/20/18 04:55 Potassium 3.9 MMOL/L (3.6-5.0) 11/20/18 04:55 Chloride 92 mmol/L (98-107) L 11/20/18 04:55 Carbon Dioxide 44 mmol/L (22-30) H* 11/20/18 04:55 Anion Gap 4 (10-20) L 11/20/18 04:55 BUN 20 mg/dl (7-17) H 11/20/18 04:55 Creatinine 0.6 mg/dl (0.7-1.2) L 11/20/18 04:55 Est GFR ( Amer) > 60 11/20/18 04:55 Est GFR (Non-Af Amer) > 60 11/20/18 04:55 POC Glucose (mg/dL) 146 mg/dL (65-110) H 11/20/18 05:36 Random Glucose 143 mg/dL (65-105) H 11/20/18 04:55 Hemoglobin A1c 6.5 % (4.2-6.5) 11/06/18 04:25 Lactic Acid 2.3 MMOL/L (0.7-2.1) H 11/06/18 04:25 Calcium 9.0 mg/dL (8.4-10.2) 11/20/18 04:55 Phosphorus 4.7 mg/dl (2.5-4.5) H 11/19/18 07:39 Magnesium 1.8 MG/DL (1.6-2.3) 11/19/18 07:39 Total Bilirubin 0.6 mg/dl (0.2-1.3) 11/20/18 04:55 AST 27 U/L (14-36) 11/20/18 04:55 ALT 33 U/L (9-52) 11/20/18 04:55 Alkaline Phosphatase 76 U/L (38-126) 11/20/18 04:55 Ammonia 14 umo/L (11-51) 11/06/18 10:10 Troponin I 0.0280 ng/mL (0.00-0.120) 11/12/18 04:30 NT-Pro-B Natriuret Pep 2590 pg/ml (0-900) H 11/07/18 05:30 Total Protein 5.9 G/DL (6.3-8.2) L 11/20/18 04:55 Albumin 2.9 g/dL (3.5-5.0) L 11/20/18 04:55 Globulin 3.0 gm/dL (2.2-3.9) 11/20/18 04:55 Albumin/Globulin Ratio 1.0 (1.0-2.1) 11/20/18 04:55 Procalcitonin 0.05 NG/ML (0.19-0.49) L 11/06/18 04:25 TSH 3rd Generation 1.69 mIU/ML (0.46-4.68) 11/06/18 04:25 Arterial Blood Potassium 4.1 mmol/L (3.6-5.2) 11/13/18 04:14 Venous Blood Potassium 3.7 mmol/L (3.6-5.2) 11/12/18 17:02 Urine Color Catherine (YELLOW) 11/05/18 21:30 Urine Clarity Turbid (Clear) 11/05/18 21:30 Urine pH 7.0 (5.0-8.0) 11/05/18 21:30 Ur Specific [place] 1.019 (1.003-1.030) 11/05/18 21:30 Urine Protein 100 mg/dL (NEGATIVE) 11/05/18 21:30 Urine Glucose (UA) Neg mg/dL (NEGATIVE) 11/05/18 21:30 Urine Ketones Negative mg/dL (NEGATIVE) 11/05/18 21:30 Urine Blood Negative (NEGATIVE) 11/05/18 21:30 Urine Nitrate Negative (NEGATIVE) 11/05/18 21:30 Urine Bilirubin Negative (NEGATIVE) 11/05/18 21:30 Urine Urobilinogen 0.2-1.0 mg/dL (0.2-1.0) 11/05/18 21:30 Ur Leukocyte Esterase Neg Rd/uL (Negative) 11/05/18 21:30 Urine RBC (Auto) 1 /hpf (0-3) 11/05/18 21:30 Urine Microscopic WBC 325 /hpf (0-5) H 11/05/18 21:30 Ur Squamous Epith Cells 1 /hpf (0-5) 11/05/18 21:30 Ur Transition Epith Cell < 1 /hpf (0-3) 11/05/18 21:30 Ur Renal Epithelial Cell 1 /hpf (0-3) 11/05/18 21:30 Amorphous Sediment Occ /ul (<OCC) H 11/05/18 21:30 Urine Bacteria Many (<OCC) H 11/05/18 21:30 Hyaline Casts 11-20 /hpf (0-2) H 11/05/18 21:30 Vancomycin Trough 23.7 ug/mL (5.0-10.0) H 11/14/18 06:30 EBV Capsid Ag IgG Ab 20.20 U/mL H 11/09/18 18:12 EBV Capsid Ag IgM Ab <36.00 U/mL 11/09/18 18:12 EBV Nuclear Antigen Ab 259.00 U/mL H 11/09/18 18:12 EBV Interpretation See note 11/09/18 18:12 Infectious [place] Assay Negative (NEGATIVE) 11/09/18 18:12 Influenza Typ A,B (EIA) Negative for flu a/b (NEGATIVE) 11/09/18 08:50 Ur L.pneumophila Ag Negative (NEGATIVE) 11/09/18 18:12 Mycoplasma pneumon IgM Negative (NEGATIVE) 11/09/18 18:12 - Hospital Course Hospital Course: 83 years old female with PMHx of CHF, HTN, DM and Hypothyroidism who was sent from [facility] and brought to [facility] ED due to altered mental status and lethargy on 11/05/18. In the ED, patient found to have acidosis and hypercarbia. Patient was admitted to ICU and intubated. Of note, patient was admitted at the [facility] in early October with Hypoxemia and Hypercarbia as well. Patient was extubated briefly on 11/10/18 but re-intubated due to respiratory distress. Patient was extubated on 11/12/18 and transferred to Telemetry on 11/15/18. Patients urine cx on 11/05/18 grew E coli and blood cx was negative. Patients hospitalization was complicated by persistent fever at the beginning of hospitalization but has been afebrile since 11/12/18. Patient received treatment for HCAP with Vacomycin and Meropenem. Patient had her PICC line placed and will receive additional 5 days of Meropenem at [facility]. Discharge Exam - Head Exam Head Exam: NORMOCEPHALIC - ENT Exam ENT Exam: Mucous Membranes Moist - Respiratory Exam Respiratory Exam: Clear to PA & Lateral, NORMAL BREATHING PATTERN. absent: Wheezes, Respiratory Distress - Cardiovascular Exam Cardiovascular Exam: REGULAR RHYTHM, +S1, +S2 - GI/Abdominal Exam GI & Abdominal Exam: Normal Bowel Sounds, Soft. absent: Tenderness - Extremities Exam Extremities exam: normal inspection - Neurological Exam Neurological exam: Alert - Psychiatric Exam Psychiatric exam: Normal Affect - Skin Skin Exam: Normal Color Discharge Plan - Discharge Medications Prescriptions: Furosemide [Lasix] 40 mg PO DAILY #30 tablet Meropenem IV 1 gm in NS [Merrem IV 1 gm Premix] 1 gm IVPB Q8 #21 bag - Follow Up Plan Condition: CRITICAL Disposition: TRANSF TO SNF Instructions: Dehydration, Adult (DC), Urinary Tract Infection, Adult (DC), Pneumonia, Adult (DC), Sepsis, Adult (DC), Heart Failure (DC), Heart Failure (GEN), Pacemaker (DC), Pacemaker (GEN), Pulmonary Edema (DC), Pulmonary Edema (GEN), Ascites (DC), Ascites (GEN) Additional Instructions: I was present during evaluation and discussed with Dr Medel re plans of care and mgt. Tapan Hatch M.D. <Tapan Hatch L - Last Filed: 11/24/18 20:53> Provider - Provider Date of Admission: 11/05/18 22:06 Attending physician: Nakul Zhang MD Consults: 11/15/18 14:06 Psychiatry Consult Routine Comment: Consulting Provider: Tristan Bird Consulting Physician: Tristan Bird Reason for Consult: agitation, confusion 11/22/18 17:29 Pulmonology Consult Routine Comment: Consulting Provider: Juancarlos Reeves I Consulting Physician: Juancarlos Reeves I Reason for Consult: resp.failure 11/22/18 17:30 Infectious Disease Consult Routine Comment: Consulting Provider: Jose Chiu Consulting Physician: Jose Chiu Reason for Consult: HAP 11/06/18 08:21 Cardiology Consult Routine Comment: pacemaker at 87 bpm Consulting Provider: Douglas Kim Consulting Physician: Douglas Kim Reason for Consult: pacemaker at 87 bpm 11/06/18 09:00 Nursing Referral for Palliative Care Routine Comment: Consulting Provider: Claudia Yanez Physician Instructions: Reason For Exam: nsg screen Nursing Referral for Wound Care Routine Comment: Physician Instructions: Reason For Exam: nsg screen Pastoral Care Referral Routine Comment: Physician Instructions: Reason For Exam: nsg screen 11/07/18 08:42 Pulmonology Consult Routine Comment: Consulting Provider: Juancarlos Reeves I Consulting Physician: Juancarlos Reeves I Reason for Consult: resp failure, on vent 11/09/18 14:50 Infectious Disease Consult Routine Comment: vap Consulting Provider: Jose Chiu Consulting Physician: Jose Chiu Reason for Consult: vap Hospital Course - Lab Results Lab Results: Micro Results 11/14/18 08:40 Nose MRSA Culture (Admit) - Final MRSA NOT DETECTED 11/09/18 09:14 Blood-Venous Blood Culture - Final NO GROWTH AFTER 5 DAYS 11/09/18 09:14 Blood-Venous Gram Stain - Final TEST NOT PERFORMED 11/09/18 16:57 Trachasp Gram Stain - Final 11/09/18 16:57 Trachasp Sputum Culture - Final NORMAL ORAL JOAQUIN 11/05/18 23:15 Blood Blood Culture - Final NO GROWTH AFTER 5 DAYS 11/05/18 23:15 Blood Gram Stain - Final TEST NOT PERFORMED 11/05/18 21:00 Blood Blood Culture - Final NO GROWTH AFTER 5 DAYS 11/05/18 21:00 Blood Gram Stain - Final TEST NOT PERFORMED 11/07/18 14:30 Trachasp Gram Stain - Final 11/07/18 14:30 Trachasp Sputum Culture - Final NORMAL ORAL JOAQUIN 11/05/18 21:30 Urine,Catheterized Urine Culture - Final Escherichia Coli 11/06/18 14:00 Naris MRSA Culture (Admit) - Final MRSA NOT DETECTED Most Recent Lab Values WBC 5.0 K/uL (4.8-10.8) 11/20/18 04:55 RBC 4.47 Mil/uL (3.80-5.20) 11/20/18 04:55 Hgb 11.6 g/dL (12.0-16.0) L 11/20/18 04:55 Hct 37.2 % (34.0-47.0) 11/20/18 04:55 MCV 83.3 fl (81.0-99.0) 11/20/18 04:55 MCH 25.9 pg (27.0-31.0) L 11/20/18 04:55 MCHC 31.1 g/dL (33.0-37.0) L 11/20/18 04:55 RDW 19.7 % (11.5-14.5) H 11/20/18 04:55 Plt Count 175 K/uL (130-400) 11/20/18 04:55 MPV 9.4 fl (7.2-11.7) 11/14/18 06:30 Neut % (Auto) 59.6 % (50.0-75.0) 11/14/18 06:30 Lymph % (Auto) 22.8 % (20.0-40.0) 11/14/18 06:30 [place] % (Auto) 14.2 % (0.0-10.0) H 11/14/18 06:30 Eos % (Auto) 3.1 % (0.0-4.0) 11/14/18 06:30 Baso % (Auto) 0.3 % (0.0-2.0) 11/14/18 06:30 Neut # (Auto) 1.9 K/uL (1.8-7.0) 11/14/18 06:30 Lymph # (Auto) 0.7 K/uL (1.0-4.3) L 11/14/18 06:30 [place] # (Auto) 0.5 K/uL (0.0-0.8) 11/14/18 06:30 Eos # (Auto) 0.1 K/uL (0.0-0.7) 11/14/18 06:30 Baso # (Auto) 0.0 K/uL (0.0-0.2) 11/14/18 06:30 PT 11.8 Seconds (9.8-13.1) 11/05/18 21:00 INR 1.0 11/05/18 21:00 APTT 37.4 Seconds (25.6-37.1) H 11/05/18 21:00 pCO2 58 mm/Hg (35-45) H 11/13/18 04:14 pO2 62 mm/Hg (80-100) L 11/13/18 04:14 HCO3 31.8 mmol/L (21-28) H 11/13/18 04:14 ABG pH 7.40 (7.35-7.45) 11/13/18 04:14 ABG Total CO2 37.7 mmol/L (22-28) H 11/13/18 04:14 ABG O2 Saturation 93.7 % (95-98) L 11/13/18 04:14 ABG O2 Content 14.3 ML/dL (15-23) L 11/11/18 05:14 ABG Base Excess 9.0 mmol/L (-2.0-3.0) H 11/13/18 04:14 ABG Hemoglobin 10.9 g/dL (11.7-17.4) L 11/11/18 05:14 ABG Carboxyhemoglobin 1.8 % (0.5-1.5) H 11/11/18 05:14 POC ABG HHb (Measured) 3.8 % (0.0-5.0) 11/11/18 05:14 ABG Methemoglobin 1.1 % (0.0-3.0) 11/11/18 05:14 ABG O2 Capacity 14.9 mL/dL (16-24) L 11/11/18 05:14 Favian Test Yes 11/13/18 04:14 ABG Potassium 4.1 mmol/L (3.6-5.2) 11/13/18 04:14 VBG pH 7.40 (7.32-7.43) 11/12/18 17:02 VBG pCO2 56 mmHg (40-60) 11/12/18 17:02 VBG HCO3 30.2 mmol/L 11/12/18 17:02 VBG Total CO2 36.4 mmol/L (22-28) H 11/12/18 17:02 VBG O2 Sat (Calc) 73.3 % (40-65) H 11/12/18 17:02 VBG Base Excess 8.0 mmol/L (0.0-2.0) H 11/12/18 17:02 VBG Potassium 3.7 mmol/L (3.6-5.2) 11/12/18 17:02 A-a O2 Difference 79.0 mm/Hg 11/13/18 04:14 Hgb O2 Saturation 93.2 % (95.0-98.0) L 11/11/18 05:14 Sodium 143.0 mmol/L (132-148) 11/13/18 04:14 Chloride 109.0 mmol/L (98-107) H 11/13/18 04:14 Glucose 143 mg/dL (65-105) H 11/13/18 04:14 Lactate 0.7 mmol/L (0.7-2.1) 11/13/18 04:14 Vent Mode A/c 11/12/18 05:37 Mechanical Rate 14 11/12/18 05:37 FiO2 30.0 % 11/13/18 04:14 Tidal Volume 500 11/12/18 05:37 PEEP 5 11/12/18 05:37 Pressure Support 10 11/10/18 04:59 Crit Value Called To Rita bradley rn 11/08/18 04:58 Crit Value Called By Wendy 11/08/18 04:58 Crit Value Read Back Y 11/08/18 04:58 Blood Gas Notified Time 505 11/08/18 04:58 Sodium 136 mmol/l (132-148) 11/20/18 04:55 Potassium 3.9 MMOL/L (3.6-5.0) 11/20/18 04:55 Chloride 92 mmol/L (98-107) L 11/20/18 04:55 Carbon Dioxide 44 mmol/L (22-30) H* 11/20/18 04:55 Anion Gap 4 (10-20) L 11/20/18 04:55 BUN 20 mg/dl (7-17) H 11/20/18 04:55 Creatinine 0.6 mg/dl (0.7-1.2) L 11/20/18 04:55 Est GFR ( Amer) > 60 11/20/18 04:55 Est GFR (Non-Af Amer) > 60 11/20/18 04:55 POC Glucose (mg/dL) 127 mg/dL (65-110) H 11/20/18 16:42 Random Glucose 143 mg/dL (65-105) H 11/20/18 04:55 Hemoglobin A1c 6.5 % (4.2-6.5) 11/06/18 04:25 Lactic Acid 2.3 MMOL/L (0.7-2.1) H 11/06/18 04:25 Calcium 9.0 mg/dL (8.4-10.2) 11/20/18 04:55 Phosphorus 4.7 mg/dl (2.5-4.5) H 11/19/18 07:39 Magnesium 1.8 MG/DL (1.6-2.3) 11/19/18 07:39 Total Bilirubin 0.6 mg/dl (0.2-1.3) 11/20/18 04:55 AST 27 U/L (14-36) 11/20/18 04:55 ALT 33 U/L (9-52) 11/20/18 04:55 Alkaline Phosphatase 76 U/L (38-126) 11/20/18 04:55 Ammonia 14 umo/L (11-51) 11/06/18 10:10 Troponin I 0.0280 ng/mL (0.00-0.120) 11/12/18 04:30 NT-Pro-B Natriuret Pep 2590 pg/ml (0-900) H 11/07/18 05:30 Total Protein 5.9 G/DL (6.3-8.2) L 11/20/18 04:55 Albumin 2.9 g/dL (3.5-5.0) L 11/20/18 04:55 Globulin 3.0 gm/dL (2.2-3.9) 11/20/18 04:55 Albumin/Globulin Ratio 1.0 (1.0-2.1) 11/20/18 04:55 Procalcitonin 0.05 NG/ML (0.19-0.49) L 11/06/18 04:25 TSH 3rd Generation 1.69 mIU/ML (0.46-4.68) 11/06/18 04:25 Arterial Blood Potassium 4.1 mmol/L (3.6-5.2) 11/13/18 04:14 Venous Blood Potassium 3.7 mmol/L (3.6-5.2) 11/12/18 17:02 Urine Color Catherine (YELLOW) 11/05/18 21:30 Urine Clarity Turbid (Clear) 11/05/18 21:30 Urine pH 7.0 (5.0-8.0) 11/05/18 21:30 Ur Specific [place] 1.019 (1.003-1.030) 11/05/18 21:30 Urine Protein 100 mg/dL (NEGATIVE) 11/05/18 21:30 Urine Glucose (UA) Neg mg/dL (NEGATIVE) 11/05/18 21:30 Urine Ketones Negative mg/dL (NEGATIVE) 11/05/18 21:30 Urine Blood Negative (NEGATIVE) 11/05/18 21:30 Urine Nitrate Negative (NEGATIVE) 11/05/18 21:30 Urine Bilirubin Negative (NEGATIVE) 11/05/18 21:30 Urine Urobilinogen 0.2-1.0 mg/dL (0.2-1.0) 11/05/18 21:30 Ur Leukocyte Esterase Neg Rd/uL (Negative) 11/05/18 21:30 Urine RBC (Auto) 1 /hpf (0-3) 11/05/18 21:30 Urine Microscopic WBC 325 /hpf (0-5) H 11/05/18 21:30 Ur Squamous Epith Cells 1 /hpf (0-5) 11/05/18 21:30 Ur Transition Epith Cell < 1 /hpf (0-3) 11/05/18 21:30 Ur Renal Epithelial Cell 1 /hpf (0-3) 11/05/18 21:30 Amorphous Sediment Occ /ul (<OCC) H 11/05/18 21:30 Urine Bacteria Many (<OCC) H 11/05/18 21:30 Hyaline Casts 11-20 /hpf (0-2) H 11/05/18 21:30 Vancomycin Trough 23.7 ug/mL (5.0-10.0) H 11/14/18 06:30 EBV Capsid Ag IgG Ab 20.20 U/mL H 11/09/18 18:12 EBV Capsid Ag IgM Ab <36.00 U/mL 11/09/18 18:12 EBV Nuclear Antigen Ab 259.00 U/mL H 11/09/18 18:12 EBV Interpretation See note 11/09/18 18:12 Infectious [place] Assay Negative (NEGATIVE) 11/09/18 18:12 Influenza Typ A,B (EIA) Negative for flu a/b (NEGATIVE) 11/09/18 08:50 Legionella Culture See note 11/09/18 16:58 Ur L.pneumophila Ag Negative (NEGATIVE) 11/09/18 18:12 Mycoplasma pneumon IgM Negative (NEGATIVE) 11/09/18 18:12
[2018-11-20 15:53] VITALS: BP 118/66; PULSE 112; RESP 18; TEMP 98.2; O2SAT 93
--- NOTE | 2018-11-20 17:06 | CP.PCM.PN ---
Subjective - Date & Time of Evaluation Date of Evaluation: 11/20/18 Time of Evaluation: 17:05 - Subjective Subjective: more awake plan for rehab Objective - Vital Signs/Intake and Output Vital Signs (last 24 hours): Temp Pulse Resp BP Pulse Ox 98.2 F 112 H 18 118/66 93 L 11/20/18 15:52 11/20/18 15:52 11/20/18 15:52 11/20/18 15:52 11/20/18 15:52 - Medications Medications: Current Medications Acetaminophen (Tylenol 650mg/20.3ml Solution Ud) 650 mg NG Q6 PRN PRN Reason: fever: temp of > 100.4 F Last Admin: 11/11/18 20:16 Dose: 650 mg Albuterol/Ipratropium (Duoneb 3 Mg/0.5 Mg (3 Ml) Ud) 3 ml INH Q6H [facility] Last Admin: 11/20/18 13:20 Dose: Not Given Carvedilol (Coreg) 3.125 mg PO Q12 [facility] Last Admin: 11/20/18 08:25 Dose: 3.125 mg Dextrose (Dextrose 50% Inj) 0 ml IV STAT PRN; Protocol PRN Reason: Hypoglycemia Protocol Dextrose (Glutose 15) 0 gm PO ONCE PRN; Protocol PRN Reason: Hypoglycemia Protocol Enoxaparin Sodium (Lovenox) 40 mg SC DAILY [facility]; Protocol Last Admin: 11/20/18 08:21 Dose: 40 mg Furosemide (Lasix) 40 mg IV DAILY [facility] Last Admin: 11/20/18 08:21 Dose: 40 mg Glucagon (Glucagen Diagnostic Kit) 0 mg IM STAT PRN; Protocol PRN Reason: Hypoglycemia Protocol Meropenem 1 gm/ Sodium (Chloride) 100 mls @ 100 mls/hr IVPB Q8 [facility]; Protocol Last Admin: 11/20/18 16:08 Dose: 100 mls/hr Insulin Human Lispro (Humalog) 0 units SC ACHS [facility]; Protocol Last Admin: 11/20/18 12:51 Dose: 2 units Lactobacillus Acidophilus (Bacid Acidophilus) 1 cap PO BID [facility] Last Admin: 11/20/18 16:08 Dose: 1 cap Levothyroxine Sodium (Synthroid) 37.5 mcg PO DAILY@0630 [facility] Last Admin: 11/20/18 06:53 Dose: 37.5 mcg Losartan Potassium (Cozaar) 25 mg PO DAILY [facility] Last Admin: 11/20/18 08:23 Dose: 25 mg Pantoprazole Sodium (Protonix Ec Tab) 40 mg PO DAILY [facility] Last Admin: 11/20/18 08:22 Dose: 40 mg Potassium Chloride (K-Dur 20 Meq Er Tab) 20 meq PO DAILY [facility] Last Admin: 11/20/18 08:22 Dose: 20 meq Risperidone (Risperdal Tab) 0.5 mg PO Q12 PRN PRN Reason: Agitation Last Admin: 11/19/18 23:28 Dose: 0.5 mg Spironolactone (Aldactone) 12.5 mg PO DAILY [facility] Last Admin: 11/20/18 08:24 Dose: 12.5 mg - Labs Labs: 11/20/18 04:55 11/20/18 04:55 PT 11.8 Seconds (9.8-13.1) 11/05/18 21:00 INR 1.0 11/05/18 21:00 APTT 37.4 Seconds (25.6-37.1) H 11/05/18 21:00 - Constitutional Appears: Well - Head Exam Head Exam: ATRAUMATIC, NORMAL INSPECTION, NORMOCEPHALIC - Eye Exam Eye Exam: EOMI, Normal appearance, PERRL Pupil Exam: NORMAL ACCOMODATION, PERRL - ENT Exam ENT Exam: Mucous Membranes Moist, Normal Exam - Neck Exam Neck Exam: Full ROM, Normal Inspection. absent: Lymphadenopathy - Respiratory Exam Respiratory Exam: Clear to Ausculation Bilateral, NORMAL BREATHING PATTERN - Cardiovascular Exam Cardiovascular Exam: REGULAR RHYTHM, +S1, +S2. absent: Murmur - GI/Abdominal Exam GI & Abdominal Exam: Soft, Normal Bowel Sounds. absent: Tenderness - Extremities Exam Extremities Exam: Full ROM, Normal Capillary Refill, Normal Inspection. absent: Joint Swelling, Pedal Edema - Back Exam Back Exam: NORMAL INSPECTION - Neurological Exam Neurological Exam: Alert, Awake, CN II-XII Intact, Normal Gait, Oriented x3 - Psychiatric Exam Psychiatric exam: Normal Affect, Normal Mood - Skin Skin Exam: Dry, Intact, Normal Color, Warm Assessment and Plan (1) CHF (congestive heart failure) Status: Chronic (2) Dehydration Status: Acute (3) Pneumonia Status: Acute (4) Respiratory failure Status: Resolved (5) Severe sepsis Status: Acute (6) UTI (urinary tract infection) Status: Resolved
[2018-11-22] MEDS ORDERED: Albuterol-Ipratrop 3 mg / 0.5 (3 ml) UD INH PRN (17:25)
[2018-11-22] MEDS ORDERED: Meropenem 1 GM in Sodium Chloride 0.9% 100 ML IVPB SCH (17:30)
[2018-11-22] MEDS ORDERED: Lactobacillus Acidophilus 500 MU Cap PO SCH (17:30)
[2018-11-23] MEDS ORDERED: Levothyroxine 50 MCG TAB PO SCH (06:30)
--- NOTE | 2018-11-23 08:25 | PN ---
DATE: CRITICAL CARE PROGRESS NOTE TIME SPENT: 45 minutes. The patient is seen, evaluated at the bedside. Past medical, surgical, social and family history reviewed. The patient is known to ICU service from her previous admission on 11/05/2018. SUBJECTIVE: An 82-year-old morbidly obese female with history significant for diabetes mellitus type 2, hypertension, hypothyroidism, diastolic heart failure, status post permanent pacemaker insertion and knee surgery. The patient has recurrent admissions for hypercapnic hypoxic respiratory failure, recently at [place] and on 11/05/2018 here in [facility]. The patient was discharged to recent admission with significant for respiratory failure, required mechanical ventilation; sepsis; pneumonia. She was sent to correction on 11/20/2018 to complete the course of meropenem for three more days. In the correction, the patient was noted to be lethargic and not responding. EMS was called and brought her to emergency room. In the ER, the patient's vital signs showed a temperature of 100, respiratory rate 18, pulse 100, blood pressure 148/76. Examination noted the patient to be lethargic and not responding to verbal response. The patient was intubated and placed on mechanical ventilation. Admitted to ICU for further evaluation and management of hypercapnic hypoxic respiratory failure. The patient's past medical history as noted above. MEDICATIONS: In the correction include Tylenol 650 mg every 6 hours p.r.n., calcium carbonate one tablet daily, vitamin D3 1000 units daily, Colace 100 mg p.o. twice daily, insulin glargine at 10 units subcu at night, oxybutynin 10 mg daily, senna 8.6 mg p.o. daily, albuterol/Atrovent inhalation 3 mL via nebulizer every 6 hours, Lovenox 40 mg subcu daily, acidophilus one capsule twice daily, levothyroxine 37.5 mcg daily, losartan 25 mg daily, meropenem 1 g IV every 8 hours, potassium chloride, risperidone 0.5 mg p.o. daily, spironolactone 12.5 mg p.o. daily. ALLERGIES: TO IBUPROFEN. PHYSICAL EXAMINATION: GENERAL: Morbidly obese female, weighing 225 pounds with BMI 39.9, orally intubated, mechanically ventilated, on AC/PRVC observed rate 20, exhaled tidal volume 500, FiO2 100%, saturation 97%, peak airway pressure 36. VITAL SIGNS: Temperature 100.3, heart rate 97 to 104 and regular, blood pressure 134/79. HEAD, EYES, EARS, NOSE AND THROAT: Pupils 2-3 mm, midline, reactive. No nystagmus. NECK: Short neck. Reduced oropharyngeal airspace. Endotracheal tube in place. No secretion noted. HEART: Rhythm regular. S1 and S2 distant. No audible murmur. CHEST: Bilateral breath sounds, distant. Clear to auscultation anteriorly and laterally. ABDOMEN: Bowel sounds present. Pendulous. EXTREMITIES: Dependent edema. No palpable cord. DP reduced in intensity. NEUROLOGIC: Sedated on Diprivan drip. LABORATORY DATA: WBC 4.9, hemoglobin 10.9, hematocrit 35, platelet count of 165, neutrophils 66.8, lymphocytes 22.1, monocytes 9.3. ABG: The pH of 7.19, pCO2 of 115, pO2 of 80, saturation 97.6 on FiO2 50%. SMA-7: Sodium 144, potassium 4.7, chloride 97, CO2 of 42, blood urea nitrogen 31, creatinine 0.9, random glucose 119, calcium 8.7. Total bilirubin 0.7, AST 35, ALT 42, alkaline phosphatase 64, total protein 6.1, albumin 2.9. Chest x-ray post-intubation, endotracheal tube above the level of mamadou, NG tube in the stomach. Echocardiogram done on 11/06/2018, technically difficult study, estimated EF from 55% to 60%, left atrium is mild to moderately dilated, permanent pacemaker leads ending in right ventricle, trace mitral valve regurgitation. CAT scan of the head on 11/05/2018: No acute intracranial hemorrhage, minor chronic periventricular white matter ischemic changes with a few scattered chronic bilateral basal nuclear lacunar type infarcts, moderate generalized volume loss. CT chest on 11/07/2018: Mild atelectasis in both lung base with bilateral small pleural effusion, small calcified granuloma in left lower lobe. IMPRESSION AND PLAN: An 82-year-old morbidly obese female with recurrent hypercapnic hypoxic respiratory failure, history of diabetes mellitus type 2, hypertension, hypothyroidism, diastolic heart failure, status post permanent pacemaker insertion and knee surgery, re-admitted with hypercapnic respiratory failure, intubated, currently on meropenem for healthcare associated pneumonia during the last admission. 1. Neurologic: History of mild dementia, now sedated on Diprivan drip. 2. Pulmonary: Recurrent hypercapnic hypoxic respiratory failure, nosocomial pneumonia, urinary tract infection, on intravenous antibiotic. 3. Cardiac: Diastolic heart failure, status post permanent pacemaker insertion. 4. Endocrine: History of diabetes mellitus type 2 and hypothyroidism. Continue Accu-Chek with regular insulin coverage. Maintain blood sugar close to 80-110 mg. 5. Renal: No acute issues noted. No electrolyte abnormalities. Keep head of bed 30 degrees up. Deep venous thrombosis prophylaxis. Infectious disease followup. Pulmonary consult with Dr. Reeves given recurrent hypercapnic hypoxic respiratory failure, requiring intubation. Consider tracheostomy and percutaneous endoscopic gastrostomy insertion. We will discuss with consultants and family for further plan of care. Maco Russell MD
--- NOTE | 2018-11-25 02:03 | PN ---
DATE: 11/24/2018 LOCATION: The patient is in ICU, bed 425. SUBJECTIVE: The patient is seen and evaluated at the bedside. Case discussed in multidisciplinary ICU rounds this morning. Events since admission reviewed. Past medical, surgical and social history reviewed. An 82-year-old morbidly obese female with history significant for diabetes mellitus type 2, hypertension, hypothyroidism, diastolic heart failure, status post permanent pacemaker insertion and knee surgery. The patient was recently discharged to rehab on 11/20/2018 to complete the course of meropenem for her healthcare associated pneumonia. Readmitted on 11/22/2018 in hypercapnic hypoxic respiratory failure, intubated on mechanical ventilation. On AC/PRVC rate 812, tidal volume of 400, FiO2 50%, PEEP of 5, observed rate 13, minute ventilation of 5 liters, saturation 98%, end-tidal CO2 of 32, sedated on Diprivan drip. PHYSICAL EXAMINATION: VITAL SIGNS: Temperature 100.5, heart rate 79, blood pressure 95/35 with mean arterial pressure 55-109 over 46, respiratory rate 13, saturation 99%. Intake 2390, output 600, positive balance 1790. Weight 218 pounds. HEAD, EYES, EARS, NOSE AND THROAT: Pupils reactive. Conjunctivae pink. Sclerae white. NECK: Supple. Reduced oropharyngeal airspace. Endotracheal tube in place. No secretion noted. HEART: Rhythm regular. S1, S2 normal. CHEST: Bilateral breath sounds diminished in intensity. ABDOMEN: Bowel sounds present. Soft, nontender. EXTREMITIES: With edema. NEUROLOGIC: Sedated on Diprivan drip. CURRENT MEDICATIONS: Tylenol 650 mg every 6 hours p.r.n., Lovenox 40 mg subcu daily, Pepcid 20 mg IV every 12 hours, Levemir 10 units subcu at bedtime, Accu-Chek with regular insulin coverage, vancomycin 1 g IV every 12 hours, spironolactone 12.5 mg daily, propofol at 2.95 mL/hr to Eddy sedation scale 2, Zosyn 3.375 g every 6 hours, losartan 25 mg p.o. daily, Levemir 10 units subcu at bedtime. LABORATORY DATA: WBC 5.2, hemoglobin 9.7, hematocrit 30.7, platelet count 151. ABG: pH of 7.44, pCO2 of 50, pO2 of 113, oxygen saturation 99.5% on AC 12, 400, 60%, PEEP of 5. SMA-7: Sodium 142, potassium 3.3, chloride 101, CO2 of 34, blood urea nitrogen 28, creatinine 0.9. Urinalysis: Leukocyte esterase moderate, microscopic and wbc 120. Microbiology: Blood culture positive for gram-positive cocci. Nasal smear: MRSA negative, gram-positive cocci in pairs. Chest x-ray: Small left pleural effusion, right basilar parahilar subsegmental atelectasis, no acute infiltrate. IMPRESSION AND PLAN: 1. Neuro: Hypoxic hypercapnic respiratory failure. Sedated on Diprivan drip. 2. Pulmonary: Recurrent hypercapnic respiratory failure, multiple intubations/extubations. Continue DuoNeb 3 mL via nebulizer every 6 hours, add Solu-Medrol 20 mg intravenous every 8 hours. 3. Infectious disease: Blood culture positive for gram-positive bacteremia. We will repeat blood culture through peripherally inserted central catheter line and through a peripheral stick once remains positive. We will change the peripherally inserted central catheter line. Continue current antibiotics as recommended by infectious disease consult. 4. Hematology: Leukocytosis, anemia of chronic disease, mild thrombocytopenia, stable. 5. Endocrinology: History of diabetes mellitus type 2. Maintain blood sugar in the range of 90-110. Continue Levemir. Accu-Chek with regular insulin coverage. 6. Renal: Hypokalemia, supplemented. Continue tube feeding at 50 mL/hour. Keep head of bed [address] in place for adequate urine output. Deep venous thrombosis prophylaxis, Lovenox 40 mg subcu daily. Maco Russell MD
== END 2018-11-20 18:20 | DRG 870 ==
LOC: H.ER 20:25 → H.ERHOLD 22:06 → H.ICU/CCU 11-06 03:19 → H.TEL 11-14 23:10
PROVIDERS: ADMIT Internal Medicine; ATTEND Internal Medicine
PROC: 5A1955Z Respiratory Ventilation, Greater than 96 Consecutive Hours (ICD-10-PCS; 2018-11-05)
PROC: 0BH17EZ Insertion of Endotracheal Airway into Trachea, Via Natural or Artificial Opening (ICD-10-PCS; 2018-11-05)
PROC: 05HM33Z Insertion of Infusion Device into Right Internal Jugular Vein, Percutaneous Approach (ICD-10-PCS; principal; 2018-11-09)
PROC: 0BH17EZ Insertion of Endotracheal Airway into Trachea, Via Natural or Artificial Opening (ICD-10-PCS; 2018-11-10)
PROC: 05HY33Z Insertion of Infusion Device into Upper Vein, Percutaneous Approach (ICD-10-PCS; 2018-11-13)
PROC: 02HV33Z Insertion of Infusion Device into Superior Vena Cava, Percutaneous Approach (ICD-10-PCS; 2018-11-20)
DX: A41.9 Sepsis, unspecified organism (principal); J96.02 Acute respiratory failure with hypercapnia; J15.9 Unspecified bacterial pneumonia; J96.21 Acute and chronic respiratory failure with hypoxia; J44.0 Chronic obstructive pulmonary disease with (acute) lower respiratory infection; E87.4 Mixed disorder of acid-base balance; N39.0 Urinary tract infection, site not specified; I87.1 Compression of vein; F05 Delirium due to known physiological condition; I50.32 Chronic diastolic (congestive) heart failure; R65.20 Severe sepsis without septic shock; Z95.0 Presence of cardiac pacemaker; E03.9 Hypothyroidism, unspecified; E87.5 Hyperkalemia; E86.0 Dehydration; K21.9 Gastro-esophageal reflux disease without esophagitis; Z68.34 Body mass index [BMI] 34.0-34.9, adult; E11.65 Type 2 diabetes mellitus with hyperglycemia; E78.5 Hyperlipidemia, unspecified; E87.6 Hypokalemia; T50.1X5A Adverse effect of loop [high-ceiling] diuretics, initial encounter; Z66 Do not resuscitate; B96.20 Unspecified Escherichia coli [E. coli] as the cause of diseases classified elsewhere; D70.9 Neutropenia, unspecified; R53.81 Other malaise; E66.01 Morbid (severe) obesity due to excess calories; Y95 Nosocomial condition; F03.90 Unspecified dementia, unspecified severity, without behavioral disturbance, psychotic disturbance, mood disturbance, and anxiety; I11.0 Hypertensive heart disease with heart failure

== ENCOUNTER 2018-11-22 13:29 | Inpatient (IN) | payer MEDICARE ==
[2018-11-22] MEDS ORDERED: Sodium Chloride 0.9% 1,000 ML IV STA (13:48)
--- NOTE | 2018-11-22 14:02 | ED PDOC ---
HPI: General Adult Time Seen by Provider: 11/22/18 13:41 Chief Complaint (Nursing): Weakness/Neurological Deficit Chief Complaint (Provider): Weakness/Neurological Deficit History Per: EMS History/Exam Limitations: clinical condition Onset/Duration Of Symptoms: Days (x1) Current Symptoms Are (Timing): Still Present Additional Complaint(s): 83 year old female arrives to ED via EMS from group home for an evaluation of increased lethargy and decreased mentation for 1 day. Patient was recently discharged from [facility] on 11/20/18 status post sepsis, pneumonia, and UTI. She received ABX in group home and IV fluid challenge in field by paramedics. B/P noted at 115 systolic upon arrival. PCP: Dr. Nakul Zhang Past Medical History Reviewed: Historical Data, Nursing Documentation, Vital Signs Vital Signs: Last Vital Signs Temp 100 F H 11/22/18 13:34 Pulse 100 H 11/22/18 13:34 Resp 18 11/22/18 13:34 BP 148/76 11/22/18 13:34 Pulse Ox 99 11/22/18 13:34 - Medical History PMH: CHF, Diverticulitis, HTN, Hypothyroidism, Pneumonia Denies: Chronic Kidney Disease - Surgical History Surgical History: Pacemaker - Family History Family History: States: Unknown Family Hx - Living Arrangements Living Arrangements: Group Home/Assist [facility] - Home Medications Home Medications: Ambulatory Orders Medication Instructions Recorded Acetaminophen [Tylenol] 650 mg PO Q4 PRN 11/06/18 Calcium Carbonate/Vitamin D 1 tab PO DAILY 11/06/18 [Oscal-D 250 mg-125 Units Tab] Cholecalciferol (Vitamin D3) 1,000 units PO DAILY 11/06/18 [Vitamin D3] Docusate [Colace] 100 mg PO BID 11/06/18 Insulin Glargine, Recombina 10 units SC DAILY 11/06/18 [Lantus] Magnesium Hydroxide [Milk Of 30 ml PO DAILY PRN 11/06/18 Magnesia] Menthol/Zinc Oxide [Calmoseptine 71 gm TOP QSHIFT 11/06/18 Ointment] Oxybutynin Chloride [Oxybutynin 10 mg PO DAILY 11/06/18 Chloride ER] Sennosides [Senna] 8.6 mg PO DAILY 11/06/18 Acetaminophen [Tylenol 650 mg NG Q6 PRN [facility] [place]18 650mg/20.3ml solution UD] Albuterol/Ipratropium [Duoneb 3 3 ml INH Q6H neb 11/20/18 mg/0.5 mg (3 ml) UD] Carvedilol [Coreg] 3.125 mg PO Q12 tab 11/20/18 Enoxaparin [Lovenox] 40 mg SC DAILY syr 11/20/18 Furosemide [Lasix] 40 mg PO DAILY #30 tablet 11/20/18 Lactobacillus Acidophilus [Bacid 1 cap PO BID cap 11/20/18 Acidophilus] Levothyroxine [Synthroid] 37.5 mcg PO DAILY@0630 tab 11/20/18 Losartan [Cozaar] 25 mg PO DAILY tab 11/20/18 Meropenem IV 1 gm in NS [Merrem IV 1 gm IVPB Q8 #21 bag 11/20/18 1 gm Premix] Pantoprazole [Protonix EC Tab] 40 mg PO DAILY ect 11/20/18 Potassium Chloride [K-Dur 20 mEq 20 meq PO DAILY tab 11/20/18 ER Tab] Spironolactone [Aldactone] 12.5 mg PO DAILY tab 11/20/18 risperiDONE [RisperDAL Tab] 0.5 mg PO Q12 PRN tab 11/20/18 - Allergies Allergies/Adverse Reactions: Allergies Allergy/AdvReac Type Severity Reaction Status Date / Time ibuprofen [From Advil] Allergy RASH Verified 11/05/18 20:31 Review of Systems ROS Statement: Except As Marked, All Systems Reviewed And Found Negative Constitutional: Positive for: Malaise Neurological: Positive for: Other (decrease in mentation) Physical Exam - Reviewed Nursing Documentation Reviewed: Yes Vital Signs Reviewed: Yes - Physical Exam Appears: Positive for: No Acute Distress Head Exam: Positive for: ATRAUMATIC, NORMAL INSPECTION, NORMOCEPHALIC Skin: Positive for: Normal Color Eye Exam: Positive for: Normal appearance ENT: Positive for: Normal ENT Inspection. Negative for: Pharyngeal Erythema Neck: Positive for: Normal Cardiovascular/Chest: Positive for: Regular Rate, Rhythm Respiratory: Positive for: Rhonchi (bilaterally). Negative for: Respiratory Distress Gastrointestinal/Abdominal: Positive for: Normal Exam, Soft Back: Positive for: Normal Inspection Extremity: Positive for: Normal ROM (upper/lower) Neurologic/Psych: Positive for: Mood/Affect (sleepy/lethargic/difficult to arouse). Negative for: Motor/Sensory Deficits (focal) - Laboratory Results Result Diagrams: 11/22/18 14:40 11/22/18 14:40 - ECG O2 Sat by Pulse Oximetry: 99 (RA) Pulse Ox Interpretation: Normal Medical Decision Making Medical Decision Making: Time: 1346 Initial Plan: * Labs * EKG * CXR * Accucheck * IV fluid * Vancomycin inj 250ml IVPB * Blood cuture * Urine culture Time: 1430 --ABG: pC02 at 115. Patient remains lethargic and obtunded. Will intubate for respiratory failure. Time: 1541 --Multiple attempts of intubation were unsuccessful. GlideScope with direct laryngoscopy used by anesthesiologist with 7.0mm cuffed ET tube. Patient placed for ICU. Scribe Attestation: Documented by Carmela Denny, acting as a scribe for Wesley Levine MD. Provider Scribe Attestation: All medical record entries made by the Scribe were at my direction and pe rsonally dictated by me. I have reviewed the chart and agree that the record accurately reflects my personal performance of the history, physical exam, medical decision making, and the department course for this patient. I have also personally directed, reviewed, and agree with the discharge instructions and disposition. Disposition - Clinical Impression Clinical Impression: Respiratory failure, Sepsis - Patient ED Disposition Is Patient to be Admitted: Yes - Disposition Disposition Time: 16:06 Condition: GUARDED - Pt Status Changed To: Hospital Disposition Of: Inpatient - Admit Certification Admit to Inpatient:: After my assessment, the patient will require hospitalization for at least two midnights. This is because of the severity of symptoms shown, intensity of services needed, and/or the medical risk in this patient being treated as an outpatient. - POA Present On Arrival: None
[2018-11-22] MEDS ORDERED: Vancomycin 1 g Inj ONE (14:24)
[2018-11-22 14:42] LABS: VENOUS BLOOD GAS BASE EXCESS 16.1 mmol/L (0.0-2.0); VENOUS BLOOD GAS PCO2 108 mmHg (40-60); VENOUS BLOOD GAS PO2 50 mm/Hg (30-55); VENOUS BLOOD PH 7.26 (7.32-7.43)
[2018-11-22 14:58] LABS: ABG ALLEN TEST YES; ARTERIAL BLOOD GAS HEMOGLOBIN 11.5 g/dL (11.7-17.4); ARTERIAL BLOOD GAS O2 CAPACITY 15.4 mL/dL (16-24); ARTERIAL BLOOD GAS O2 SAT 97.6 % (95-98); ARTERIAL BLOOD GAS PCO2 115 mm/Hg (35-45); ARTERIAL BLOOD GAS PH 7.19 (7.35-7.45); ARTERIAL BLOOD GAS PO2 80 mm/Hg (80-100); ARTERIAL BLOOD GAS TCO2 47.4 mmol/L (22-28)
[2018-11-22 14:58] LABS: BASO % 0.4 % (0.0-2.0); EOS # 0.1 K/uL (0.0-0.7); EOS % 1.4 % (0.0-4.0); HEMOGLOBIN 10.9 g/dL (12.0-16.0); LYMPH # 1.1 K/uL (1.0-4.3); LYMPH % 22.1 % (20.0-40.0); MEAN CELL VOLUME 84.7 fl (81.0-99.0); MEAN CORPUSCULAR HEMOGLOBIN 26.5 pg (27.0-31.0); MEAN CORPUSCULAR HGB CONC 31.3 g/dL (33.0-37.0); MEAN PLATELET VOLUME 8.6 fl (7.2-11.7); MONO # 0.5 K/uL (0.0-0.8); MONO % 9.3 % (0.0-10.0); NEUT # 3.3 K/uL (1.8-7.0); NEUT % 66.8 % (50.0-75.0); NRBC % 0.1 % (0.0-0.0); RBC 4.13 Mil/uL (3.80-5.20); RED CELL DISTRIBUTION WIDTH 20.7 % (11.5-14.5); WHITE BLOOD COUNT 4.9 K/uL (4.8-10.8)
[2018-11-22] MEDS ORDERED: Etomidate 20 mg/10ml Inj IV ONE ×2 (15:01→15:36)
[2018-11-22] MEDS ORDERED: Succinylcholine 200 mg/10 ml Inj IV ONE ×2 (15:11→15:37)
[2018-11-22 15:23] LABS: ALB/GLOB RATIO 0.9 (1.0-2.1); ALBUMIN 2.9 g/dL (3.5-5.0); ALT/SGPT 42 U/L (9-52); AST/SGOT 35 U/L (14-36); BLOOD UREA NITROGEN 31 mg/dl (7-17); CALCIUM 8.7 mg/dL (8.4-10.2); GFR NON-AFRICAN AMERICAN 60
[2018-11-22] MEDS ORDERED: Propofol 10 mg/ml Inj (20 ML) IV ONE (15:38)
--- NOTE | 2018-11-22 15:51 | PCM.ANES ---
Anesthesia Emergent Intubation - Diagnosis Working Diagnosis:: Sepsis, hypercarbic respiratory failure - Consult Reason for Consult:: Emergency intubation - Intubation Attempts Previous Number of Intubation Attempts:: 2 - Pre-Intubation Vital Signs Blood Pressure: 134/79 Heart Rate: 104 Respiratory Rate: 0 O2 Sat: 28 FIO2: 100 Oxygen Delivery Method: Mask Level Of Consciousness: Unable to follow directions - Airway Management Oropharyngeal Area Suctioned: Yes PreOxygenation: 100 (Bag-mask ventilated patient to 100% prior to intubation attempt) Cricoid Pressure: Yes - Method of Intubation Intubation Method: Oral ETT (Glidescope) ETT Size: 7.0 cuffed Lipline@: 21 Easy: Yes Atramatic: Yes - Intubation Devices Glasgow Scope Used: Yes (Size 3) - Placement Confirmation Breath Sounds Present & Equal Bilaterally: Yes (+ breath sounds bilaterally) Gurgling Sounds Not Audible at Epigastrum: Yes Positive EtCO2: Yes Portable CXR: Yes Recommendations: Ventilator (Primary team set ventilator settings) - Post-Intubation Vital Signs Blood Pressure: 114/79 Heart Rate: 84 Respiratory Rate: 16 O2 Sat: 100 FIO2: 100
[2018-11-22] MEDS ORDERED: Propofol 10 mg/ml Inj (20 ML) ONE (16:04)
[2018-11-22] MEDS ORDERED: Propofol 10 mg/ml 1,000 MG/100 ML VIAL ONE (16:04)
[2018-11-22] MEDS: Propofol 10 mg/ml 1,000 MG/100 ML VIAL IV SCH (16:18)
--- NOTE | 2018-11-22 17:45 | RAD ---
Date of service: 11/22/2018 HISTORY: cough COMPARISON: Portable chest 11/19/2018. FINDINGS: LUNGS: AICD/pacemaker reiterated. Patient now intubated with endotracheal tube terminating approximately 3.5 cm above the mamadou. Right PICC inserted terminating at distal superior vena cava. Left basilar infiltrate suspected with none on the right. PLEURA: Small pleural effusion not excluded. None is seen the right. No pneumothorax bilaterally. CARDIOVASCULAR: Calcific atherosclerotic changes are seen related to the thoracic aorta. Prominent cardiac silhouette remains. No pulmonary vascular congestion. OSSEOUS STRUCTURES: No significant abnormalities. VISUALIZED UPPER ABDOMEN: Normal. OTHER FINDINGS: None. IMPRESSION: Left basilar infiltrate suspected. Smaller pleural effusion also evident. AICD, tubes and catheters as discussed above.
[2018-11-22 18:23] LABS: ABG ALLEN TEST YES; ARTERIAL BLOOD GAS HCO3 35.6 mmol/L (21-28); ARTERIAL BLOOD GAS HEMOGLOBIN 11.1 g/dL (11.7-17.4); ARTERIAL BLOOD GAS O2 CAPACITY 15.5 mL/dL (16-24); ARTERIAL BLOOD GAS O2 CONTENT 15.5 ML/dL (15-23); ARTERIAL BLOOD GAS O2 SAT 99.9 % (95-98); ARTERIAL BLOOD GAS PCO2 38 mm/Hg (35-45); ARTERIAL BLOOD GAS PH 7.59 (7.35-7.45); ARTERIAL BLOOD GAS PO2 174 mm/Hg (80-100); ARTERIAL BLOOD GAS TCO2 37.7 mmol/L (22-28)
[2018-11-22] MEDS ORDERED: Chlorhexidine Gluconate 1 APPL/PKT TP ONE (19:34)
[2018-11-22] MEDS ORDERED: Dextrose 5%/0.45% NS 1,000 ML IV SCH (21:00)
[2018-11-22] MEDS: Insulin Detemir 100 Units/ml Inj SC SCH (21:18)
--- NOTE | 2018-11-22 22:28 | CARD ---
APPROVED REPORT Date of service: 11/22/2018 EKG Measurement Heart [id number] <Conclusion> AV dual-paced rhythm Abnormal ECG
[2018-11-23] MEDS: Acetaminophen 650mg/20.3ml solution UD GT PRN ×2 (01:31→20:43)
[2018-11-23] MEDS: Propofol 10 mg/ml 1,000 MG/100 ML VIAL IV SCH ×2 (05:07→22:44)
[2018-11-23 05:14] LABS: ABG ALLEN TEST YES; ARTERIAL BLOOD GAS HCO3 35.7 mmol/L (21-28); ARTERIAL BLOOD GAS HEMOGLOBIN 10.3 g/dL (11.7-17.4); ARTERIAL BLOOD GAS O2 CAPACITY 14.2 mL/dL (16-24); ARTERIAL BLOOD GAS O2 CONTENT 13.9 ML/dL (15-23); ARTERIAL BLOOD GAS O2 SAT 98.2 % (95-98); ARTERIAL BLOOD GAS PCO2 33 mm/Hg (35-45); ARTERIAL BLOOD GAS PH 7.64 (7.35-7.45); ARTERIAL BLOOD GAS PO2 74 mm/Hg (80-100); ARTERIAL BLOOD GAS TCO2 36.5 mmol/L (22-28)
[2018-11-23 05:43] LABS: HEMOGLOBIN 10.5 g/dL (12.0-16.0); MEAN CELL VOLUME 82.6 fl (81.0-99.0); MEAN CORPUSCULAR HEMOGLOBIN 26.9 pg (27.0-31.0); MEAN CORPUSCULAR HGB CONC 32.6 g/dL (33.0-37.0); RBC 3.88 Mil/uL (3.80-5.20); RED CELL DISTRIBUTION WIDTH 20.7 % (11.5-14.5); WHITE BLOOD COUNT 6.3 K/uL (4.8-10.8)
[2018-11-23 05:56] LABS: SQUAMOUS EPITHIAL < 1 /hpf (0-5); URINE AMORPHOUS SEDIMENT RARE /ul (<OCC); URINE BILIRUBIN NEGATIVE (NEGATIVE); URINE BLOOD NEGATIVE (NEGATIVE); URINE CLARITY SLIGHTY-CLOUDY (Clear); URINE COLOR YELLOW (YELLOW); URINE GLUCOSE (UA) NEG (NEGATIVE); URINE LEUKOCYTE ESTERASE MOD Leu/uL (Negative); URINE PROTEIN 100 mg/dL (NEGATIVE)
[2018-11-23 06:07] LABS: B-TYPE NATRIURETIC PEPTIDE 1360 pg/ml (0-900)
[2018-11-23 06:10] LABS: ALB/GLOB RATIO 0.9 (1.0-2.1); ALBUMIN 2.7 g/dL (3.5-5.0); ALT/SGPT 30 U/L (9-52); AST/SGOT 38 U/L (14-36); BLOOD UREA NITROGEN 27 mg/dl (7-17); CALCIUM 8.6 mg/dL (8.4-10.2); GFR NON-AFRICAN AMERICAN > 60
[2018-11-23] MEDS: Enoxaparin 40 mg Syringe SC SCH (08:58)
--- NOTE | 2018-11-23 09:03 | RAD ---
Date of service: 11/23/2018 HISTORY: VENTED COMPARISON: Portable chest 11/22/2018. FINDINGS: LUNGS: Endotracheal and nasogastric tubes do not appear significantly changed in position with AICD/pacemaker again identified in position. Right PICC unchanged in position. The left hemidiaphragm is completely silhouetted compatible with left basilar dense atelectasis or pneumonia worsening. Limited patchy atelectasis or infiltrate seen the right infrahilar space. PLEURA: No pneumothorax bilaterally. Small pleural effusion not excluded. No right pleural effusion evident. CARDIOVASCULAR: Calcific atherosclerotic changes are seen related to the thoracic aorta. Stable cardiac size. No definite pulmonary vascular congestion appreciated. No pulmonary vascular congestion. OSSEOUS STRUCTURES: No significant abnormalities. VISUALIZED UPPER ABDOMEN: Normal. OTHER FINDINGS: None. IMPRESSION: No worsening of left basilar atelectasis or infiltrate with limited right infrahilar patchy density now present. No definite pulmonary vascular congestion. Small pleural effusion not excluded.
--- NOTE | 2018-11-23 10:49 | CP.CCUPN ---
CCU Subjective - Physician Review Subjective (Free Text): Events over the past 24H reviewed: require intubation and MV support for hypercarbia. Presently sedated on Propofol, was awake and appropriately responsive during sedation holiday. Breathing 19, on AC 12. 60% oxygen with PEEP 5, SPo2 = 98% Afebrile, + fever spikes overnight, Tmax 101F, 99.4F now, SBP 110-130s; HR 90s SPO2 99% on RA, RR 19. ROS: No other pertinent negs or positives on 10+ system review. Allergies: NKDA PMSFH: CHF, HTN, DM, hypothyroidism, Pacemaker insertion, knee surgery. All other Nursing and physician documentation reviewed to date; no new pertinent info noted relevant to current medical problems. EXAM- HEENT: no icterus, no gaze preference NECK: No JVD visible given short neck and overall obesity, supple, carotids equal upstroke bilat/no bruit CHEST: decreased BS at the bases, no wheezes audible bilaterally. HEART: regular, distant, S1S2, no rubs or murmurs noted ABD: soft, obese, nontender, no guarding, no organomegaly, BS hypoactive. EXT: trace to +1 leg edema- SCDs on bilat, no calf tenderness or palpable c ords, distal pulses intact and symmetrical. RUE single lumen PICC. NEURO: withdraws to pain, + tone in all extremities. SKIN: no rashes, warm and dry LABS: WBC= 6.3 HGB= 10.5 PLTs= 160K Na= 142 K= 3.8 CL= 99 HCO3= 35 BUN/Cr= 27/0.8 BS= 144 CXR: (my interp)- RML< R hilar and LLL interstitial changes, Left hemidiaphragm not visible. ETT tip position ok above mamadou. IMPRESSION / MAJOR PROBLEMS NOW: 1. Acute Hypercapneic Resp Failure, 2 bilat Pneumonia / COPD Exacerbation 2. Metabolic Encephalopathy with AMS 2 #1 3. h/o CHF-not decompensated 4. h/o DM II PLAN: 1. If no overall improvement on neuro mental status, consider CT brain, none done on admission; checked previous assessments of baseline mental status as per Psych eval done several days ago during last hospitalization. 2. MV support, try decreasing FiO2. Excessive hyperventilation noted, RR and TV changed. Follow serial ABGs. 3. ECHO from Oct 2018 reviewed. 4. Recd only Vanco x1 dose in ER; Blood Cx obtained, no Sputum Cx obtained. See orders for Sputum cx, empiric abx, Stress ulcer prx/ SCDs, OGT feeds. Consider Pulm evaluation.
[2018-11-23] MEDS: Piperacillin/Tazobact 3.375 GM in Sodium Chloride 0.9% 100 ML IVPB SCH ×3 (11:48→22:40)
[2018-11-23] MEDS: Insulin Regular 100 units/ml SC SCH ×2 (11:59→22:56)
--- NOTE | 2018-11-23 18:10 | CP.PCM.CON ---
<Pierce Yo - Last Filed: 11/23/18 19:27> History of Present Illness - History of Present Illness History of Present Illness: Pierce Yo DO PGY1 - Internal Medicine Hand [employer] Sander - Cardiology Consult Note for Dr. Kim As per previous consultation on 11/06: 82 yo female with past medical history significant for hypertension diabetes hyperlipidemia CHF status post ICD placement 2 years ago was admitted earlier in the month to [facility] with an episode of hypoxemia and hypercarbia she underwent a nuclear stress test which showed no evidence of ischemia ejection fraction was mildly impaired at 45-50% and was subsequently discharged back to [facility] where she was noted to be lethargic and unresponsive he was transferred over to [place] [facility] where he was noted to be severely acidotic with a pH of 6.899 an extremely hypercarbic with PCO2 greater than 150 for which she was intubated. At the time of my evaluation she seem and unresponsive was on the ventilator. Past medical history as stated above significant for hypertension diabetes hyperlipidemia CHF chronic kidney disease past surgical history significant for ICD placement 2 years ago social history patient was residing at [facility] assisted living facility. Family history nonsignificant for CAD allergies allergic to ibuprofen medications as per the son patient was on oxybutynin and Diamox. Patient is again presenting for similar symptoms after experiencing hypercapnic, hypoxemic respiratory failure shortly after discharge on 11/20. Pt seen and examined at bedside in ICU; Pt is Intubated / Sedated unable to obtain ROS at this time. Past Patient History - Infectious Disease Hx of Infectious Diseases: None - Past Medical History & Family History Past Medical History?: Yes - Past Social History Smoking Status: Never Smoked - CARDIAC Hx Congestive Heart Failure: Yes Hx Hypertension: Yes Hx Pacemaker: Yes - PULMONARY Hx Pneumonia: Yes Other/Comment: respiratory Failure - NEUROLOGICAL Hx Neurological Disorder: No - HEENT Hx HEENT Problems: No - RENAL Hx Chronic Kidney Disease: No - ENDOCRINE/METABOLIC Hx Hypothyroidism: Yes - HEMATOLOGICAL/ONCOLOGICAL Hx Blood Disorders: No - INTEGUMENTARY Hx Dermatological Problems: No - MUSCULOSKELETAL/RHEUMATOLOGICAL Hx Falls: No - GASTROINTESTINAL Hx Diverticulitis: Yes - GENITOURINARY/GYNECOLOGICAL Hx Genitourinary Disorders: No - PSYCHIATRIC Hx Substance Use: No - SURGICAL HISTORY Hx Orthopedic Surgery: Yes Other/Comment: Pacemaker insertion - ANESTHESIA Hx Anesthesia: Yes Hx Anesthesia Reactions: No Hx Malignant Hyperthermia: No Meds Allergies/Adverse Reactions: Allergies Allergy/AdvReac Type Severity Reaction Status Date / Time ibuprofen [From Advil] Allergy RASH Verified 11/05/18 20:31 - Medications Medications: Current Medications Acetaminophen (Tylenol 650mg/20.3ml Solution Ud) 650 mg GT Q6 PRN PRN Reason: temp of > 100.4 F Last Admin: 11/23/18 01:31 Dose: 650 mg Enoxaparin Sodium (Lovenox) 40 mg SC DAILY REPLACED BY [facility]; Protocol Last Admin: 11/23/18 08:58 Dose: 40 mg Famotidine (Pepcid) 20 mg IVP Q12 REPLACED BY [facility] Last Admin: 11/23/18 09:02 Dose: 20 mg Vancomycin HCl 1 gm/ Sodium (Chloride) 250 mls @ 166.667 mls/hr IVPB Q12 REPLACED BY [facility]; Protocol Last Admin: 11/23/18 11:48 Dose: 166.667 mls/hr Piperacillin Sod/Tazobactam (Sod 3.375 gm/ Sodium Chloride) 100 mls @ 100 mls/hr IVPB Q6 REPLACED BY [facility]; Protocol Last Admin: 11/23/18 16:26 Dose: 100 mls/hr Insulin Detemir (Levemir) 10 units SC [facility] Last Admin: 11/22/18 21:18 Dose: 10 u Insulin Human Regular (Humulin R) 0 units SC ACCU-CHECK REPLACED BY [facility]; Protocol Last Admin: 11/23/18 11:59 Dose: Not Given Losartan Potassium (Cozaar) 25 mg PO DAILY REPLACED BY [facility] Last Admin: 11/23/18 08:58 Dose: 25 mg Spironolactone (Aldactone) 12.5 mg PO DAILY REPLACED BY [facility] Physical Exam - Constitutional Additional comments: Intubated/ Sedated - Eye Exam Eye Exam: absent: Scleral icterus - ENT Exam Additional comments: ET tube in place - Neck Exam Additional comments: no JVD - Respiratory Exam Respiratory Exam: Decreased Breath Sounds. absent: Wheezes - Cardiovascular Exam Cardiovascular Exam: RRR (Heart sounds distant), +S1, +S2 - GI/Abdominal Exam GI & Abdominal Exam: Normal Bowel Sounds, Soft. absent: Tenderness - Neurological Exam Additional comments: Sedated - Psychiatric Exam Psychiatric exam: Normal Affect Results - Vital Signs Recent Vital Signs: Last Vital Signs Temp 100.0 F H 11/23/18 16:00 Pulse 91 H 11/23/18 16:00 Resp 12 01/14/19 14:00 BP 104/55 L 11/23/18 16:00 Pulse Ox 98 11/23/18 16:00 - Labs Result Diagrams: 11/23/18 04:20 11/23/18 04:20 Labs: Laboratory Results - last 24 hr 11/22/18 11/22/18 11/23/18 18:16 20:57 04:20 WBC 6.3 RBC 3.88 Hgb 10.5 L Hct 32.1 L MCV 82.6 D MCH 26.9 L MCHC 32.6 L RDW 20.7 H Plt Count 160 pCO2 38 pO2 174 H HCO3 35.6 H ABG pH 7.59 H ABG Total CO2 37.7 H ABG O2 Saturation 99.9 H ABG O2 Content 15.5 ABG Base Excess 13.7 H ABG Hemoglobin 11.1 L ABG Carboxyhemoglobin 1.9 H POC ABG HHb (Measured) 0.1 ABG Methemoglobin 1.1 ABG O2 Capacity 15.5 L Favian Test Yes A-a O2 Difference 492.0 Hgb O2 Saturation 97.0 Vent Mode A/c Mechanical Rate 20 FiO2 100.0 Tidal Volume 500 PEEP Crit Value Called To Crit Value Called By Crit Value Read Back Blood Gas Notified Time Sodium Potassium Chloride Carbon Dioxide Anion Gap BUN Creatinine Est GFR ( Amer) Est GFR (Non-Af Amer) POC Glucose (mg/dL) 131 H Random Glucose Calcium Magnesium Total Bilirubin AST ALT Alkaline Phosphatase NT-Pro-B Natriuret Pep Total Protein Albumin Globulin Albumin/Globulin Ratio Urine Color Urine Clarity Urine pH Ur Specific Butler Urine Protein Urine Glucose (UA) Urine Ketones Urine Blood Urine Nitrate Urine Bilirubin Urine Urobilinogen Ur Leukocyte Esterase Urine RBC (Auto) Urine Microscopic WBC Ur Squamous Epith Cells Amorphous Sediment 11/23/18 11/23/18 11/23/18 04:20 04:25 04:51 WBC RBC Hgb Hct MCV MCH MCHC RDW Plt Count pCO2 33 L pO2 74 L HCO3 35.7 H ABG pH 7.64 H* ABG Total CO2 36.5 H ABG O2 Saturation 98.2 H ABG O2 Content 13.9 L ABG Base Excess 13.8 H ABG Hemoglobin 10.3 L ABG Carboxyhemoglobin 1.7 H POC ABG HHb (Measured) 1.7 ABG Methemoglobin 1.3 ABG O2 Capacity 14.2 L Favian Test Yes A-a O2 Difference 313.0 Hgb O2 Saturation 95.2 Vent Mode A/c Mechanical Rate 16 FiO2 60.0 Tidal Volume 500 PEEP 5 Crit Value Called To Yen gaines rn Crit Value Called By 302 Crit Value Read Back Y Blood Gas Notified Time 514 Sodium 142 Potassium 3.8 Chloride 99 Carbon Dioxide 35 H Anion Gap 12 BUN 27 H Creatinine 0.8 Est GFR ( Amer) > 60 Est GFR (Non-Af Amer) > 60 POC Glucose (mg/dL) 142 H Random Glucose 144 H Calcium 8.6 Magnesium 1.6 Total Bilirubin 0.8 AST 38 H ALT 30 Alkaline Phosphatase 62 NT-Pro-B Natriuret Pep 1360 H Total Protein 5.6 L Albumin 2.7 L Globulin 2.8 Albumin/Globulin Ratio 0.9 L Urine Color Urine Clarity Urine pH Ur Specific Butler Urine Protein Urine Glucose (UA) Urine Ketones Urine Blood Urine Nitrate Urine Bilirubin Urine Urobilinogen Ur Leukocyte Esterase Urine RBC (Auto) Urine Microscopic WBC Ur Squamous Epith Cells Amorphous Sediment 11/23/18 11/23/18 11/23/18 05:30 11:16 16:38 WBC RBC Hgb Hct MCV MCH MCHC RDW Plt Count pCO2 pO2 HCO3 ABG pH ABG Total CO2 ABG O2 Saturation ABG O2 Content ABG Base Excess ABG Hemoglobin ABG Carboxyhemoglobin POC ABG HHb (Measured) ABG Methemoglobin ABG O2 Capacity Favian Test A-a O2 Difference Hgb O2 Saturation Vent Mode Mechanical Rate FiO2 Tidal Volume PEEP Crit Value Called To Crit Value Called By Crit Value Read Back Blood Gas Notified Time Sodium Potassium Chloride Carbon Dioxide Anion Gap BUN Creatinine Est GFR ( Amer) Est GFR (Non-Af Amer) POC Glucose (mg/dL) 118 H 106 Random Glucose Calcium Magnesium Total Bilirubin AST ALT Alkaline Phosphatase NT-Pro-B Natriuret Pep Total Protein Albumin Globulin Albumin/Globulin Ratio Urine Color Yellow Urine Clarity Slighty-cloudy Urine pH 8.0 Ur Specific Butler 1.024 Urine Protein 100 Urine Glucose (UA) Neg Urine Ketones Negative Urine Blood Negative Urine Nitrate Negative Urine Bilirubin Negative Urine Urobilinogen 2.0 H Ur Leukocyte Esterase Mod Urine RBC (Auto) 11 H Urine Microscopic WBC 120 H Ur Squamous Epith Cells < 1 Amorphous Sediment Rare H Assessment & Plan - Assessment and Plan (Free Text) Assessment: 83F HTN, DM, HLD, CHF (s/p ICD placement 2016) who continually experiences episodes of recurrent hypercapnic respiratory failure w/ CO2 Narcosis. Cardiology consulted for evaluation of cardiac etiologies of respiratory failure. Patient previous ECHO shows a EF of 55-60% and a grade I diastolic dysfunction. Prior NST performed at [place] showed a EF of 45-55% w/o evidence of ischemia noted on official read; however lateral wall defect noted on review of NST images; cannot conclusively say defect is due to ischemia vs non-ischemia. Review of CXR shows bilateral pleural effusions; EKG shows AV dual paced rhythm. Suspect recurrent flash pulm edema 2/2 cardiomyopathy (ischemic vs. nonischemic) PLAN: 1) Interrogate ICD 2) R+L Heart Cath and renal artery eval for recurrent flash pulmonary edema - Date & Time Date: 11/23/18 Time: 19:20 <Douglas Kim - Last Filed: 11/26/18 18:46> Meds - Medications Medications: Current Medications Acetaminophen (Tylenol 650mg/20.3ml Solution Ud) 650 mg GT Q6 PRN PRN Reason: temp of > 100.4 F Last Admin: 11/24/18 17:57 Dose: 650 mg Acetaminophen (Tylenol 650mg/20.3ml Solution Ud) 650 mg NG Q4 PRN PRN Reason: fever 100.4 or above Albuterol/Ipratropium (Duoneb 3 Mg/0.5 Mg (3 Ml) Ud) 3 ml INH RQ4 [facility] Last Admin: 11/26/18 15:03 Dose: 3 ml Enoxaparin Sodium (Lovenox) 40 mg SC DAILY [facility]; Protocol Last Admin: 11/26/18 08:47 Dose: 40 mg Famotidine (Pepcid) 20 mg IVP Q12 [facility] Last Admin: 11/26/18 08:45 Dose: 20 mg Furosemide (Lasix) 40 mg IV BID [facility] Stop: 11/28/18 17:01 Last Admin: 11/26/18 16:16 Dose: 40 mg Vancomycin HCl 1 gm/ Sodium (Chloride) 250 mls @ 166.667 mls/hr IVPB Q12 [facility]; Protocol Last Admin: 11/26/18 08:47 Dose: 166.667 mls/hr Piperacillin Sod/Tazobactam (Sod 3.375 gm/ Sodium Chloride) 100 mls @ 100 mls/hr IVPB Q6 [facility]; Protocol Last Admin: 11/26/18 16:16 Dose: 100 mls/hr Propofol (Diprivan) 1,000 mg in 100 mls @ 3.1 mls/hr IV .Q24H [facility]; Protocol Stop: 11/27/18 17:35 Last Admin: 11/26/18 15:40 Dose: 5 mcg/kg/min, 3.1 mls/hr Insulin Detemir (Levemir) 10 units SC HS [facility] Last Admin: 11/25/18 21:47 Dose: 10 u Insulin Human Regular (Humulin R) 0 units SC ACCU-CHECK REPLACED BY [facility]; Protocol Last Admin: 11/26/18 16:58 Dose: Not Given Losartan Potassium (Cozaar) 25 mg PO DAILY REPLACED BY [facility] Last Admin: 11/26/18 08:45 Dose: 25 mg Spironolactone (Aldactone) 12.5 mg PO DAILY REPLACED BY [facility] Results - Vital Signs Recent Vital Signs: Last Vital Signs Temp 99.5 F 11/26/18 18:00 Pulse 83 11/26/18 18:00 Resp 13 11/26/18 18:00 BP 112/42 L 11/26/18 18:00 Pulse Ox 99 11/26/18 18:00 - Labs Result Diagrams: 11/26/18 04:30 11/26/18 04:30 Labs: Laboratory Results - last 24 hr 11/25/18 11/25/18 11/26/18 15:26 21:25 04:11 WBC RBC Hgb Hct MCV MCH MCHC RDW Plt Count MPV Neut % (Auto) Lymph % (Auto) [place] % (Auto) Eos % (Auto) Baso % (Auto) Neut # (Auto) Lymph # (Auto) [place] # (Auto) Eos # (Auto) Baso # (Auto) pCO2 48 H pO2 82 HCO3 30.8 H ABG pH 7.44 ABG Total CO2 34.1 H ABG O2 Saturation 98.9 H ABG O2 Content 12.5 L ABG Base Excess 7.5 H ABG Hemoglobin 9.2 L ABG Carboxyhemoglobin 1.7 H POC ABG HHb (Measured) 1.1 ABG Methemoglobin 1.1 ABG O2 Capacity 12.6 L Favian Test Yes A-a O2 Difference 215.0 Hgb O2 Saturation 96.1 Vent Mode A/c Mechanical Rate 12 FiO2 50.0 Tidal Volume 400 PEEP 5 Sodium Potassium Chloride Carbon Dioxide Anion Gap BUN Creatinine Est GFR ( Amer) Est GFR (Non-Af Amer) POC Glucose (mg/dL) 101 Random Glucose Calcium Phosphorus Magnesium Total Bilirubin AST ALT Alkaline Phosphatase NT-Pro-B Natriuret Pep Total Protein Albumin Globulin Albumin/Globulin Ratio Ur L.pneumophila Ag Negative 11/26/18 11/26/18 11/26/18 04:30 04:30 05:00 WBC 4.2 L RBC 3.34 L Hgb 9.0 L Hct 28.1 L MCV 84.0 MCH 27.0 MCHC 32.2 L RDW 21.6 H Plt Count 150 MPV 9.4 Neut % (Auto) 56.9 Lymph % (Auto) 25.9 [place] % (Auto) 9.7 Eos % (Auto) 7.3 H Baso % (Auto) 0.2 Neut # (Auto) 2.4 Lymph # (Auto) 1.1 [place] # (Auto) 0.4 Eos # (Auto) 0.3 Baso # (Auto) 0.0 pCO2 pO2 HCO3 ABG pH ABG Total CO2 ABG O2 Saturation ABG O2 Content ABG Base Excess ABG Hemoglobin ABG Carboxyhemoglobin POC ABG HHb (Measured) ABG Methemoglobin ABG O2 Capacity Favian Test A-a O2 Difference Hgb O2 Saturation Vent Mode Mechanical Rate FiO2 Tidal Volume PEEP Sodium 140 Potassium 3.8 Chloride 104 Carbon Dioxide 34 H Anion Gap 6 L BUN 18 H Creatinine 0.7 Est GFR ( Amer) > 60 Est GFR (Non-Af Amer) > 60 POC Glucose (mg/dL) 103 Random Glucose 111 H Calcium 8.6 Phosphorus 4.2 Magnesium 1.8 Total Bilirubin 0.3 AST 21 ALT 29 Alkaline Phosphatase 81 NT-Pro-B Natriuret Pep 995 H Total Protein 5.5 L Albumin 2.5 L Globulin 3.0 Albumin/Globulin Ratio 0.8 L Ur L.pneumophila Ag 11/26/18 11/26/18 11:10 16:34 WBC RBC Hgb Hct MCV MCH MCHC RDW Plt Count MPV Neut % (Auto) Lymph % (Auto) [place] % (Auto) Eos % (Auto) Baso % (Auto) Neut # (Auto) Lymph # (Auto) [place] # (Auto) Eos # (Auto) Baso # (Auto) pCO2 pO2 HCO3 ABG pH ABG Total CO2 ABG O2 Saturation ABG O2 Content ABG Base Excess ABG Hemoglobin ABG Carboxyhemoglobin POC ABG HHb (Measured) ABG Methemoglobin ABG O2 Capacity Favian Test A-a O2 Difference Hgb O2 Saturation Vent Mode Mechanical Rate FiO2 Tidal Volume PEEP Sodium Potassium Chloride Carbon Dioxide Anion Gap BUN Creatinine Est GFR ( Amer) Est GFR (Non-Af Amer) POC Glucose (mg/dL) 115 H 105 Random Glucose Calcium Phosphorus Magnesium Total Bilirubin AST ALT Alkaline Phosphatase NT-Pro-B Natriuret Pep Total Protein Albumin Globulin Albumin/Globulin Ratio Ur L.pneumophila Ag Attending/Attestation - Attestation I have personally seen and examined this patient.: Yes I have fully participated in the care of the patient.: Yes I have reviewed all pertinent clinical information: Yes
[2018-11-23] MEDS: Insulin Detemir 100 Units/ml Inj SC SCH (22:01)
[2018-11-24] MEDS: Piperacillin/Tazobact 3.375 GM in Sodium Chloride 0.9% 100 ML IVPB SCH ×4 (04:30→21:15)
[2018-11-24 05:41] LABS: HEMOGLOBIN 9.7 g/dL (12.0-16.0); MEAN CELL VOLUME 83.5 fl (81.0-99.0); MEAN CORPUSCULAR HEMOGLOBIN 26.3 pg (27.0-31.0); MEAN CORPUSCULAR HGB CONC 31.5 g/dL (33.0-37.0); RBC 3.67 Mil/uL (3.80-5.20); RED CELL DISTRIBUTION WIDTH 21.8 % (11.5-14.5); WHITE BLOOD COUNT 5.2 K/uL (4.8-10.8)
[2018-11-24 05:57] LABS: BLOOD UREA NITROGEN 28 mg/dl (7-17); CALCIUM 8.2 mg/dL (8.4-10.2); GFR NON-AFRICAN AMERICAN 60
[2018-11-24 06:48] LABS: ABG ALLEN TEST YES; ARTERIAL BLOOD GAS HCO3 31.4 mmol/L (21-28); ARTERIAL BLOOD GAS O2 SAT 99.5 % (95-98); ARTERIAL BLOOD GAS PCO2 50 mm/Hg (35-45); ARTERIAL BLOOD GAS PH 7.44 (7.35-7.45); ARTERIAL BLOOD GAS PO2 113 mm/Hg (80-100); ARTERIAL BLOOD GAS TCO2 35.5 mmol/L (22-28)
[2018-11-24] MEDS: Insulin Regular 100 units/ml SC SCH ×4 (07:01→23:26)
--- NOTE | 2018-11-24 07:46 | CP.PCM.HP ---
Past Patient History - Infectious Disease Hx of Infectious Diseases: None - Past Medical History & Family History Past Medical History?: Yes - Past Social History Smoking Status: Never Smoked - CARDIAC Hx Congestive Heart Failure: Yes Hx Hypertension: Yes Hx Pacemaker: Yes - PULMONARY Hx Pneumonia: Yes Other/Comment: respiratory Failure - NEUROLOGICAL Hx Neurological Disorder: No - HEENT Hx HEENT Problems: No - RENAL Hx Chronic Kidney Disease: No - ENDOCRINE/METABOLIC Hx Hypothyroidism: Yes - HEMATOLOGICAL/ONCOLOGICAL Hx Blood Disorders: No - INTEGUMENTARY Hx Dermatological Problems: No - MUSCULOSKELETAL/RHEUMATOLOGICAL Hx Falls: No - GASTROINTESTINAL Hx Diverticulitis: Yes - GENITOURINARY/GYNECOLOGICAL Hx Genitourinary Disorders: No - PSYCHIATRIC Hx Substance Use: No - SURGICAL HISTORY Hx Orthopedic Surgery: Yes Other/Comment: Pacemaker insertion - ANESTHESIA Hx Anesthesia: Yes Hx Anesthesia Reactions: No Hx Malignant Hyperthermia: No Meds Allergies/Adverse Reactions: Allergies Allergy/AdvReac Type Severity Reaction Status Date / Time ibuprofen [From Advil] Allergy RASH Verified 11/05/18 20:31 Results - Vital Signs Recent Vital Signs: Last Vital Signs Temp 99 F 11/24/18 06:00 Pulse 86 11/24/18 06:00 Resp 21 11/24/18 06:00 BP 96/52 L 11/24/18 06:00 Pulse Ox 100 11/24/18 06:00 - Labs Result Diagrams: 11/24/18 05:00 11/24/18 05:00 Labs: Laboratory Results - last 24 hr 11/23/18 11/23/18 11/23/18 11:16 16:38 20:51 WBC RBC Hgb Hct MCV MCH MCHC RDW Plt Count pCO2 pO2 HCO3 ABG pH ABG Total CO2 ABG O2 Saturation ABG Base Excess Favian Test ABG Potassium A-a O2 Difference Glucose Lactate Vent Mode Mechanical Rate FiO2 Tidal Volume PEEP Sodium Potassium Chloride Carbon Dioxide Anion Gap BUN Creatinine Est GFR ( Amer) Est GFR (Non-Af Amer) POC Glucose (mg/dL) 118 H 106 121 H Random Glucose Calcium Arterial Blood Potassium 11/23/18 11/24/18 11/24/18 22:54 05:00 05:00 WBC 5.2 RBC 3.67 L Hgb 9.7 L Hct 30.7 L MCV 83.5 MCH 26.3 L MCHC 31.5 L RDW 21.8 H Plt Count 151 pCO2 pO2 HCO3 ABG pH ABG Total CO2 ABG O2 Saturation ABG Base Excess Favian Test ABG Potassium A-a O2 Difference Glucose Lactate Vent Mode Mechanical Rate FiO2 Tidal Volume PEEP Sodium 142 Potassium 3.3 L Chloride 101 Carbon Dioxide 34 H Anion Gap 10 BUN 28 H Creatinine 0.9 Est GFR ( Amer) > 60 Est GFR (Non-Af Amer) 60 POC Glucose (mg/dL) 140 H Random Glucose 130 H Calcium 8.2 L Arterial Blood Potassium 11/24/18 11/24/18 06:07 06:45 WBC RBC Hgb Hct MCV MCH MCHC RDW Plt Count pCO2 50 H pO2 113 H HCO3 31.4 H ABG pH 7.44 ABG Total CO2 35.5 H ABG O2 Saturation 99.5 H ABG Base Excess 8.3 H Favian Test Yes ABG Potassium 3.3 L A-a O2 Difference 252.0 Glucose 149 H Lactate 1.1 Vent Mode A/c Mechanical Rate 12 FiO2 60.0 Tidal Volume 400 PEEP 5 Sodium 140.0 Potassium Chloride 108.0 H Carbon Dioxide Anion Gap BUN Creatinine Est GFR ( Amer) Est GFR (Non-Af Amer) POC Glucose (mg/dL) 139 H Random Glucose Calcium Arterial Blood Potassium 3.3 L
[2018-11-24] MEDS: Enoxaparin 40 mg Syringe SC SCH (08:59)
--- NOTE | 2018-11-24 09:29 | CP.PCM.PN ---
<Pierce Yo - Last Filed: 11/24/18 17:55> Subjective - Date & Time of Evaluation Date of Evaluation: 11/24/18 Time of Evaluation: 17:55 - Subjective Subjective: Pierce Yo DO PGY1 - Internal Medicine Warranty Administrator - Cardiology Note for Dr. Kim Patient vital signs reviewed, appears mildly hypotensive, O2 saturation 98% with 60% FI02. Lab work reviewed, hypokalemic today, with elevated BUN, and hypocalcemia. Nursing notes reviewed, patient given sedation vacation, responsive and following commands off of propofol. No events reported by nursing overnight. Patient seen and examined this afternoon at bedside in ICU; intubated + sedated Objective - Vital Signs/Intake and Output Vital Signs (last 24 hours): Temp Pulse Resp BP Pulse Ox 99.6 F 97 H 12 109/46 L 98 11/24/18 07:57 11/24/18 09:08 11/24/18 07:57 11/24/18 09:08 11/24/18 07:57 Intake and Output: 11/24/18 11/24/18 06:59 18:59 Intake Total 707 0 Output Total 250 Balance 457 0 - Medications Medications: Current Medications Acetaminophen (Tylenol 650mg/20.3ml Solution Ud) 650 mg GT Q6 PRN PRN Reason: temp of > 100.4 F Last Admin: 11/23/18 20:43 Dose: 650 mg Enoxaparin Sodium (Lovenox) 40 mg SC DAILY [facility]; Protocol Last Admin: 11/24/18 08:59 Dose: 40 mg Famotidine (Pepcid) 20 mg IVP Q12 [facility] Last Admin: 11/24/18 09:03 Dose: 20 mg Vancomycin HCl 1 gm/ Sodium (Chloride) 250 mls @ 166.667 mls/hr IVPB Q12 [facility]; Protocol Last Admin: 11/24/18 09:04 Dose: 166.667 mls/hr Piperacillin Sod/Tazobactam (Sod 3.375 gm/ Sodium Chloride) 100 mls @ 100 mls/hr IVPB Q6 [facility]; Protocol Last Admin: 11/24/18 09:06 Dose: 100 mls/hr Propofol (Diprivan) 1,000 mg in 100 mls @ 2.95 mls/hr IV .Q24H [facility]; Protocol Stop: 11/24/18 18:13 Last Titration: 11/24/18 08:59 Dose: 10 mcg/kg/min, 5.9 mls/hr Insulin Detemir (Levemir) 10 units SC [facility] Last Admin: 11/23/18 22:01 Dose: 10 u Insulin Human Regular (Humulin R) 0 units SC ACCU-CHECK [facility]; Protocol Last Admin: 11/24/18 07:01 Dose: Not Given Losartan Potassium (Cozaar) 25 mg PO DAILY [facility] Last Admin: 11/24/18 09:08 Dose: 25 mg Spironolactone (Aldactone) 12.5 mg PO DAILY [facility] - Labs Labs: 11/24/18 05:00 11/24/18 05:00 Physical Exam - Constitutional Additional comments: Intubated/ Sedated - Eye Exam Eye Exam: absent: Scleral icterus - ENT Exam Additional comments: ET tube in place - Neck Exam Additional comments: no JVD - Respiratory Exam Respiratory Exam: Decreased Breath Sounds. absent: Wheezes - Cardiovascular Exam Cardiovascular Exam: RRR (Heart sounds distant), +S1, +S2 - GI/Abdominal Exam GI & Abdominal Exam: Normal Bowel Sounds, Soft. absent: Tenderness - Neurological Exam Additional comments: Sedated - Psychiatric Exam Psychiatric exam: Normal Affect Assessment and Plan - Assessment and Plan (Free Text) Assessment: Son was contacted this morning who reported that patient had a ICD implanted at [facility]. We will follow up to find pacemaker model. Will plan to interrogate ICD, and potentially follow-up with catheterization. Son reported that daughter will bring pacemaker card tonight will follow up accordingly. Will need to evaluate coronary vascularization and function in near future. <Douglas Kim - Last Filed: 11/26/18 18:45> Objective - Vital Signs/Intake and Output Vital Signs (last 24 hours): Temp Pulse Resp BP Pulse Ox 99.5 F 83 13 112/42 L 99 11/26/18 18:00 11/26/18 18:00 11/26/18 18:00 11/26/18 18:00 11/26/18 18:00 Intake and Output: 11/26/18 11/26/18 06:59 18:59 Intake Total 1674 1694 Output Total 329 1300 Balance 1345 394 - Medications Medications: Current Medications Acetaminophen (Tylenol 650mg/20.3ml Solution Ud) 650 mg GT Q6 PRN PRN Reason: temp of > 100.4 F Last Admin: 11/24/18 17:57 Dose: 650 mg Acetaminophen (Tylenol 650mg/20.3ml Solution Ud) 650 mg NG Q4 PRN PRN Reason: fever 100.4 or above Albuterol/Ipratropium (Duoneb 3 Mg/0.5 Mg (3 Ml) Ud) 3 ml INH RQ4 [facility] Last Admin: 11/26/18 15:03 Dose: 3 ml Enoxaparin Sodium (Lovenox) 40 mg SC DAILY [facility]; Protocol Last Admin: 11/26/18 08:47 Dose: 40 mg Famotidine (Pepcid) 20 mg IVP Q12 [facility] Last Admin: 11/26/18 08:45 Dose: 20 mg Furosemide (Lasix) 40 mg IV BID [facility] Stop: 11/28/18 17:01 Last Admin: 11/26/18 16:16 Dose: 40 mg Vancomycin HCl 1 gm/ Sodium (Chloride) 250 mls @ 166.667 mls/hr IVPB Q12 [facility]; Protocol Last Admin: 11/26/18 08:47 Dose: 166.667 mls/hr Piperacillin Sod/Tazobactam (Sod 3.375 gm/ Sodium Chloride) 100 mls @ 100 mls/hr IVPB Q6 [facility]; Protocol Last Admin: 11/26/18 16:16 Dose: 100 mls/hr Propofol (Diprivan) 1,000 mg in 100 mls @ 3.1 mls/hr IV .Q24H [facility]; Protocol Stop: 11/27/18 17:35 Last Admin: 11/26/18 15:40 Dose: 5 mcg/kg/min, 3.1 mls/hr Insulin Detemir (Levemir) 10 units SC HS [facility] Last Admin: 11/25/18 21:47 Dose: 10 u Insulin Human Regular (Humulin R) 0 units SC ACCU-CHECK [facility]; Protocol Last Admin: 11/26/18 16:58 Dose: Not Given Losartan Potassium (Cozaar) 25 mg PO DAILY [facility] Last Admin: 11/26/18 08:45 Dose: 25 mg Spironolactone (Aldactone) 12.5 mg PO DAILY [facility] - Labs Labs: 11/26/18 04:30 11/26/18 04:30 Attending/Attestation - Attestation I have personally seen and examined this patient.: Yes I have fully participated in the care of the patient.: Yes I have reviewed all pertinent clinical information, including history, physical exam and plan: Yes
--- NOTE | 2018-11-24 10:05 | RAD ---
Date of service: 11/24/2018 PROCEDURE: CHEST RADIOGRAPH, 1 VIEW HISTORY: R/O PNEUMONIA COMPARISON: 11/23/2018 FINDINGS: LUNGS: Probable subsegmental atelectasis right base/right parahilar. Linear scar/atelectasis adjacent to left hilum. PLEURA: Possible small left pleural effusion. No right pleural effusion. No pneumothorax. CARDIOVASCULAR: ET tube, NG tube and AICD unchanged. Normal. OSSEOUS STRUCTURES: No significant abnormalities. VISUALIZED UPPER ABDOMEN: Normal. OTHER FINDINGS: None. IMPRESSION: Small left pleural effusion. Right basilar/parahilar subsegmental atelectasis. No acute infiltrate.
[2018-11-24] MEDS ORDERED: Magnesium Sulfate 1 gm in D5W 1 GM/100 ML BAG IVPB ONE (10:44)
--- NOTE | 2018-11-24 10:56 | CP.PCM.PN ---
<Sultan Gianfranco - Last Filed: 11/24/18 11:46> Subjective - Date & Time of Evaluation Date of Evaluation: 11/24/18 Time of Evaluation: 08:10 - Subjective Subjective: Patient seen and examined during rounds with Dr. Hatch Patient is intubated and on mechanical ventilation with PRVC 12, FiO2 60% and PEEP 5. Tmax of 100.5 F last night w/ mild hypotension. Patient responds to simple commands when off from propofol. Objective - Vital Signs/Intake and Output Vital Signs (last 24 hours): Temp Pulse Resp BP Pulse Ox 99.6 F 97 H 12 109/46 L 98 11/24/18 07:57 11/24/18 09:08 11/24/18 07:57 11/24/18 09:08 11/24/18 07:57 Intake and Output: 11/24/18 11/24/18 06:59 18:59 Intake Total 707 0 Output Total 250 Balance 457 0 - Medications Medications: Current Medications Acetaminophen (Tylenol 650mg/20.3ml Solution Ud) 650 mg GT Q6 PRN PRN Reason: temp of > 100.4 F Last Admin: 11/23/18 20:43 Dose: 650 mg Enoxaparin Sodium (Lovenox) 40 mg SC DAILY [facility]; Protocol Last Admin: 11/24/18 08:59 Dose: 40 mg Famotidine (Pepcid) 20 mg IVP Q12 [facility] Last Admin: 11/24/18 09:03 Dose: 20 mg Vancomycin HCl 1 gm/ Sodium (Chloride) 250 mls @ 166.667 mls/hr IVPB Q12 [facility]; Protocol Last Admin: 11/24/18 09:04 Dose: 166.667 mls/hr Piperacillin Sod/Tazobactam (Sod 3.375 gm/ Sodium Chloride) 100 mls @ 100 mls/hr IVPB Q6 [facility]; Protocol Last Admin: 11/24/18 09:06 Dose: 100 mls/hr Propofol (Diprivan) 1,000 mg in 100 mls @ 2.95 mls/hr IV .Q24H [facility]; Protocol Stop: 11/24/18 18:13 Last Titration: 11/24/18 08:59 Dose: 10 mcg/kg/min, 5.9 mls/hr Potassium Chloride (Potassium Cl 10meq/50ml Sterile Water) 50 mls @ 50 mls/hr IVPB Q1 [facility] Stop: 11/24/18 12:59 Magnesium Sulfate/Dextrose (Magnesium Sulfate 1 Gm/100 Ml D5w) 1 gm in 100 mls @ 100 mls/hr IVPB ONCE ONE Stop: 11/24/18 11:43 Insulin Detemir (Levemir) 10 units SC [facility] Last Admin: 11/23/18 22:01 Dose: 10 u Insulin Human Regular (Humulin R) 0 units SC ACCU-CHECK [facility]; Protocol Last Admin: 11/24/18 07:01 Dose: Not Given Losartan Potassium (Cozaar) 25 mg PO DAILY [facility] Last Admin: 11/24/18 09:08 Dose: 25 mg Spironolactone (Aldactone) 12.5 mg PO DAILY [facility] - Labs Labs: 11/24/18 05:00 11/24/18 05:00 - Constitutional Appears: Other (s/p intubation) - Head Exam Head Exam: NORMAL INSPECTION - Neck Exam Neck Exam: Normal Inspection - Respiratory Exam Respiratory Exam: Rales (b/l lower lung field) Additional comments: on MV - Cardiovascular Exam Cardiovascular Exam: REGULAR RHYTHM, +S1, +S2 - GI/Abdominal Exam GI & Abdominal Exam: Soft, Normal Bowel Sounds. absent: Tenderness - Extremities Exam Extremities Exam: Pedal Edema (1+) Additional comments: B/L upper extremities mild swelling - Neurological Exam Neurological Exam: Altered - Skin Skin Exam: Normal Color Assessment and Plan (1) Bacteremia Status: Acute (2) Respiratory failure Status: Acute (3) Sepsis Status: Acute (4) CHF (congestive heart failure) Status: Chronic - Assessment and Plan (Free Text) Assessment: 83 yo F with hx HTN, CHF, DM, hypothyroidism, pacemaker, admitted due to recurre nt hypercapneic respiratory failure after being sent from [facility]. Patient brought to ED on 11/22/18 for LATONIA due to AMS, intubated and admitted to ICU. Plan: -Recurrent hypercapneic respiratory failure s/p intubation and on MV on 11/22/18 -Critical care consult appreciated. -Pulmonary consult, Dr. Reeves. Recommendation appreciated. -CHF, pacemaker - cardio consult - Dr. Kim. Recs appreciated. -Blood cx 11/22/18: Gram positive cocci in pairs -c/w Vancomycin and Zosyn -ID Consult, Dr. Chiu, f/u recommendation -Electrolytes repletion -f/u AM labs Patient seen, examined and plan d/w Dr.Jurado Sultan Medel, [id number] <Tapan Hatch L - Last Filed: 11/24/18 21:27> Objective - Vital Signs/Intake and Output Vital Signs (last 24 hours): Temp Pulse Resp BP Pulse Ox 100.7 F H 82 17 103/54 L 98 11/24/18 17:57 11/24/18 18:00 11/24/18 18:00 11/24/18 18:00 11/24/18 18:00 Intake and Output: 11/24/18 11/25/18 18:59 06:59 Intake Total 1953 Output Total 375 Balance 1578 - Medications Medications: Current Medications Acetaminophen (Tylenol 650mg/20.3ml Solution Ud) 650 mg GT Q6 PRN PRN Reason: temp of > 100.4 F Last Admin: 11/24/18 17:57 Dose: 650 mg Acetaminophen (Tylenol 650mg/20.3ml Solution Ud) 650 mg NG Q4 PRN PRN Reason: fever 100.4 or above Enoxaparin Sodium (Lovenox) 40 mg SC DAILY [facility]; Protocol Last Admin: 11/24/18 08:59 Dose: 40 mg Famotidine (Pepcid) 20 mg IVP Q12 [facility] Last Admin: 11/24/18 21:14 Dose: 20 mg Vancomycin HCl 1 gm/ Sodium (Chloride) 250 mls @ 166.667 mls/hr IVPB Q12 [facility]; Protocol Last Admin: 11/24/18 21:16 Dose: 166.667 mls/hr Piperacillin Sod/Tazobactam (Sod 3.375 gm/ Sodium Chloride) 100 mls @ 100 m ls/hr IVPB Q6 [facility]; Protocol Last Admin: 11/24/18 21:15 Dose: 100 mls/hr Insulin Detemir (Levemir) 10 units SC HS [facility] Last Admin: 11/24/18 21:14 Dose: 10 u Insulin Human Regular (Humulin R) 0 units SC ACCU-CHECK [facility]; Protocol Last Admin: 11/24/18 17:16 Dose: Not Given Losartan Potassium (Cozaar) 25 mg PO DAILY [facility] Last Admin: 11/24/18 09:08 Dose: 25 mg Spironolactone (Aldactone) 12.5 mg PO DAILY [facility] - Labs Labs: 11/24/18 05:00 11/24/18 05:00 Assessment and Plan (1) Acute respiratory failure with hypoxia and hypercarbia Status: Acute (2) Diabetes mellitus type 2 in obese Status: Acute (3) CHF (congestive heart failure) Status: Chronic (4) Pleural effusion Status: Acute (5) Bacteremia Status: Acute (6) Dehydration Status: Acute (7) Hypertension Status: Acute - Assessment and Plan (Free Text) Plan: I was present during evaluation and discussed with Dr Gianfranco sharma plans of care and tx Tapan Hatch M.D.
[2018-11-24] MEDS: Potassium CL 10 MEQ/50 ML 50 ML IVPB SCH ×2 (11:27→15:15)
--- NOTE | 2018-11-24 12:10 | CON ---
DATE: 11/24/2018 HISTORY OF PRESENT ILLNESS: Ms. Guo is an 83-year-old female who was recently discharged to subacute care in a alf and then readmitted to the intensive care unit, intubated and placed on a respirator because of hypercapnic respiratory failure. She was in hospital for quite a while with respiratory failure, was intubated, ventilated and then extubated. She also had pneumonia, hypertension, diabetes mellitus, hyperlipidemia and mild congestive heart failure. She is status post ICD placement several years ago, was recently at [facility] with episodes of hypoxemia and hypercarbia. She is unable to give any history, is presently sedated and intubated. PHYSICAL EXAMINATION: The patient is on a respirator. VITAL SIGNS: Appear stable with a blood pressure of 109/46, pulse of 97, respiratory rate on ventilator, O2 saturation 98%. HEENT: ET tube is in good position. SKIN: Shows fair turgor. LUNGS: Bilateral coarse rales. HEART: S1, S2. ABDOMEN: Unremarkable. EXTREMITIES: Unremarkable. CENTRAL NERVOUS SYSTEM: Exam could not be evaluated because of the patient being on a respirator and being sedated. LABORATORY DATA: WBC 5.2, hemoglobin 9.7, platelet count 151,000. Sodium 142, potassium 3.3, BUN of 28, creatinine 0.9. Arterial blood gas, pH 7.44, pCO2 of 50, pO2 of 113, O2 saturation 99.5, pCO2 on admission was 115 and pH 7.19. Chest x-ray on admission was remarkable for left basilar infiltrate, small pleural effusions, AICD in place. EKG, AV dual-paced rhythm. IMPRESSION: Hypercapnic respiratory failure (acute), history of chronic obstructive pulmonary disease (exacerbation). PLAN: Continue therapy as ordered. Attempt to extubate once clinically stable. Prognosis is extremely poor in this patient with multiple episodes of intubation and extubation and multiple episodes of acute respiratory failure. We will continue to follow with you. Case discussed with the operating room specialist. Juancarlos Reeves MD
--- NOTE | 2018-11-24 12:19 | CP.PCM.CON ---
History of Present Illness - History of Present Illness History of Present Illness: events noted readmitted with resp failure/ sepsis 82 years old female with hx of CHF, HTN, DM and Hypothyroidism who was admitted at [facility] in early October with respiratory failure Was treated here and extubated successfully all cultures werre negative Now readmitted with hypercapneic resp failure and possible sepsis/bacteremia PMH: HTN; CHK; DM; GERD; Hypothyroidism; Constipation PSH: Pacemaker insertion reason unknown; Knee surgery in the past SH: Never Smoked; No illegal drug use; No Alcohol, Residing at [facility] FH: No Known family hx Allergies: Ibuprofen Review of Systems - Review of Systems Systems not reviewed;Unavailable: Altered Mental Status, Intubated - Constitutional Constitutional: As Per HPI - EENT Eyes: absent: As Per HPI, Blind Spots, Blurred Vision, Change in Vision, Decreased Night Vision, Diplopia, Discharge, Dry Eye, Exophthalmos, Floaters, Irritation, Itchy Eyes, Loss of Peripheral Vision, Pain, Photophobia, Requires Corrective Lenses, Sees Flashes, Spots in Vision, Tunnel Vision, Other Visual Di sturbances, Loss of Vision, Other Ears: absent: As Per HPI, Decreased Hearing, Ear Discharge, Ear Pain, Tinnitus, Abnormal Hearing, Disequilibrium, Dizziness, Other Nose/Mouth/Throat: absent: As Per HPI, Epistaxis, Nasal Congestion, Nasal Discharge, Nasal Obstruction, Nasal Trauma, Nose Pain, Post Nasal Drip, Sinus Pain, Sinus Pressure, Bleeding Gums, Change in Voice, Dental Pain, Dry Mouth, Dysphagia, Halitosis, Hoarsness, Lip Swelling, Mouth Lesions, Mouth Pain, Odynophagia, Sore Throat, Throat Swelling, Tongue Swelling, Facial Pain, Neck Pain, Neck Mass, Other - Breasts Breasts: absent: As Per HPI, Change in Shape, Mass, Pain, Nipple Discharge, Nipple Inversion, Skin Changes, Swelling, Other - Cardiovascular Cardiovascular: As Per HPI - Respiratory Respiratory: As Per HPI, Cough, Dyspnea - Gastrointestinal Gastrointestinal: absent: As Per HPI, Abdominal Pain, Belching, Bloating, Change in Bowel Habits, Change in Stool Character, Coffee Ground Emesis, Constipation, Cramping, Diarrhea, Dyspepsia, Dysphagia, Early Satiety, Excessive Flatus, Fecal Incontinence, Heartburn, Hematemesis, Hematochezia, Loose Stools, Melena, Nausea, Odynophagia, Temesmus, Vomiting, Other - Genitourinary Genitourinary: absent: As Per HPI, Change in Urinary Stream, Difficulty Urinating, Dysuria, Flank Pain, Hematuria, Pyuria, Nocturia, Urinary Incontinence, Urinary Frequency, Urinary Hesitance, Urinary Urgency, Voiding Freq/Small Amts, Freq UTI, Hx Renal/Bladder Calculi, Hx /Renal Surgery, Bladder Distension, Other - Reproductive: Female Reproductive:Female: absent: As Per HPI, Amenorrhea, Amenorrhea/ Control, Currently Menstual, Cycle <21 Days, Cycle >35 Days, Cycle Variable, Menses 1-7 Days, Menses >/= 8 Days, Menses Variable, Cycle > 4 Weeks Between, No Menses for 6 Months, Heavy Menses, Light Menses, Normal Menses, Spotting Between Cycles, S/P Hysterectomy, Menopausal, Post Menopausal, Premenarche, Abnormal Vaginal Bleeding, Dysmenorrhea, Dyspareunia, Genital Lesions, Genital Pruritis, Pelvic Pain, Prolapse Symptoms, Sexual Dysfunction, Vaginal Discharge, Vaginal Dryness, Vaginal Odor, Vaginal Pruritis, Other - Menstruation Menstruation: absent: As Per HPI, Amenorrhea, Amenorrhea/ Control, Currently Menstual, Cycle <21 Days, Cycle >35 Days, Cycle Variable, Menses 1-7 Days, Menses >/= 8 Days, Menses Variable, Cycle > 4 Weeks Between, No Menses for 6 Months, Heavy Menses, Light Menses, Normal Menses, Spotting Between Cycles, S/P Hysterectomy, Menopausal, Post Menopausal, Premenarche, Abnormal Vaginal Bleeding, Dysmenorrhea, Other - Musculoskeletal Musculoskeletal: absent: As Per HPI, Abnormal Gait, Arthralgias, Atrophy, Back Pain, Deformity, Joint Swelling, Limited Range of Motion, Loss of Height, Muscle Cramps, Muscle Weakness, Myalgias, Neck Pain, Numbness, Radiating Pain into Limb, Stiffness, Tingling, Other - Integumentary Integumentary: absent: As Per HPI, Acne, Alopecia, Bleeding Lesions, Change in Hair, Change in Nails, Change in Pigmentation, Changing Lesions, Dry Skin, Erythema, Furuncle, Hirsutism, Lesions, New Lesions, Non-Healing Lesions, Taniya tosensitivity, Pruritus, Rash, Skin Pain, Skin Ulcer, Sores, Striae, Swelling, Unusual Bruising, Wounds, Jaundice, Other - Neurological Neurological: absent: As Per HPI, Abnormal Gait, Abnormal Hearing, Abnormal Movements, Abnormal Speech, Behavioral Changes, Burning Sensations, Confusion, Convulsions, Disequilibrium, Dizziness, Numbness, Focal Weakness, Frequent Falls, Headaches, Lack of Coordination, Loss of Vision, Memory Loss, Paresthesias, Radicular Pain, Restless Legs, Sensory Deficit, Syncope, Tingling, Tremor, Vertigo, Weakness, Other Visual Disturbances, Other - Psychiatric Psychiatric: absent: As Per HPI, Abnormal Sleep Pattern, Anhedonia, Anxiety, Auditory Hallucinations, Behavioral Changes, Change in Appetite, Change in Libido, Confusion, Depression, Difficulty Concentrating, Hallucinations, Homicid al Ideation, Hopelessness, Irritability, Memory Loss, Mood Swings, Panic Attacks, Paranoia, Suicidal Ideation, Visual Hallucinations, Tactile Hallucinations, Other - Endocrine Endocrine: absent: As Per HPI, Change in Body Appearance, Change in Libido, Cold Intolorance, Deepening of Voice, Excessive Sweating, Fatigue, Flushing, Heat Intolorance, Increase in Ring/Shoe/Hat Size, Palpitations, Polydipsia, Polyphagia, Polyuria, Other - Hematologic/Lymphatic Hematologic: absent: As Per HPI, Easy Bleeding, Easy Bruising, Lymphadenopathy, Other Past Patient History - Infectious Disease Hx of Infectious Diseases: None - Past Medical History & Family History Past Medical History?: Yes - Past Social History Smoking Status: Never Smoked - CARDIAC Hx Congestive Heart Failure: Yes Hx Hypertension: Yes Hx Pacemaker: Yes - PULMONARY Hx Pneumonia: Yes Other/Comment: respiratory Failure - NEUROLOGICAL Hx Neurological Disorder: No - HEENT Hx HEENT Problems: No - RENAL Hx Chronic Kidney Disease: No - ENDOCRINE/METABOLIC Hx Hypothyroidism: Yes - HEMATOLOGICAL/ONCOLOGICAL Hx Blood Disorders: No - INTEGUMENTARY Hx Dermatological Problems: No - MUSCULOSKELETAL/RHEUMATOLOGICAL Hx Falls: No - GASTROINTESTINAL Hx Diverticulitis: Yes - GENITOURINARY/GYNECOLOGICAL Hx Genitourinary Disorders: No - PSYCHIATRIC Hx Substance Use: No - SURGICAL HISTORY Hx Orthopedic Surgery: Yes Other/Comment: Pacemaker insertion - ANESTHESIA Hx Anesthesia: Yes Hx Anesthesia Reactions: No Hx Malignant Hyperthermia: No Meds Allergies/Adverse Reactions: Allergies Allergy/AdvReac Type Severity Reaction Status Date / Time ibuprofen [From Advil] Allergy RASH Verified 11/05/18 20:31 - Medications Medications: Current Medications Acetaminophen (Tylenol 650mg/20.3ml Solution Ud) 650 mg GT Q6 PRN PRN Reason: temp of > 100.4 F Last Admin: 11/23/18 20:43 Dose: 650 mg Enoxaparin Sodium (Lovenox) 40 mg SC DAILY [facility]; Protocol Last Admin: 11/24/18 08:59 Dose: 40 mg Famotidine (Pepcid) 20 mg IVP Q12 [facility] Last Admin: 11/24/18 09:03 Dose: 20 mg Vancomycin HCl 1 gm/ Sodium (Chloride) 250 mls @ 166.667 mls/hr IVPB Q12 [facility]; Protocol Last Admin: 11/24/18 09:04 Dose: 166.667 mls/hr Piperacillin Sod/Tazobactam (Sod 3.375 gm/ Sodium Chloride) 100 mls @ 100 mls/hr IVPB Q6 [facility]; Protocol Last Admin: 11/24/18 09:06 Dose: 100 mls/hr Propofol (Diprivan) 1,000 mg in 100 mls @ 2.95 mls/hr IV .Q24H [facility]; Protocol Stop: 11/24/18 18:13 Last Titration: 11/24/18 08:59 Dose: 10 mcg/kg/min, 5.9 mls/hr Potassium Chloride (Potassium Cl 10meq/50ml Sterile Water) 50 mls @ 50 mls/hr IVPB Q1 [facility] Stop: 11/24/18 12:59 Last Admin: 11/24/18 11:27 Dose: 50 mls/hr Insulin Detemir (Levemir) 10 units SC [facility] Last Admin: 11/23/18 22:01 Dose: 10 u Insulin Human Regular (Humulin R) 0 units SC ACCU-CHECK [facility]; Protocol Last Admin: 11/24/18 07:01 Dose: Not Given Losartan Potassium (Cozaar) 25 mg PO DAILY [facility] Last Admin: 11/24/18 09:08 Dose: 25 mg Spironolactone (Aldactone) 12.5 mg PO DAILY [facility] Physical Exam - Constitutional Appears: No Acute Distress, Chronically Ill - Head Exam Head Exam: ATRAUMATIC, NORMOCEPHALIC - Eye Exam Eye Exam: EOMI, PERRL. absent: Scleral icterus - ENT Exam ENT Exam: Mucous Membranes Dry, Normal External Ear Exam. absent: Normal Oropharynx Additional comments: Intubated orally - Neck Exam Neck exam: Negative for: Lymphadenopathy - Respiratory Exam Respiratory Exam: Decreased Breath Sounds, Prolonged Expiratory Phase, Rales - Cardiovascular Exam Cardiovascular Exam: Tachycardia, REGULAR RHYTHM, +S1, +S2 - GI/Abdominal Exam GI & Abdominal Exam: Diminished Bowel Sounds, Soft. absent: Tenderness - Rectal Exam Rectal Exam: Deferred - Exam Exam: NORMAL INSPECTION - Extremities Exam Extremities exam: Positive for: pedal edema, pedal pulses present. Negative for: calf tenderness, tenderness - Back Exam Back exam: absent: CVA tenderness (L), CVA tenderness (R) - Neurological Exam Neurological exam: Altered - Psychiatric Exam Psychiatric exam: Depressed - Skin Skin Exam: Dry Results - Vital Signs Recent Vital Signs: Last Vital Signs Temp 99.6 F 11/24/18 07:57 Pulse 97 H 11/24/18 09:08 Resp 12 11/24/18 07:57 BP 109/46 L 11/24/18 09:08 Pulse Ox 98 11/24/18 07:57 - Labs Result Diagrams: 11/25/18 06:00 11/25/18 06:00 Labs: Laboratory Results - last 24 hr 11/23/18 11/23/18 11/23/18 16:38 20:51 22:54 WBC RBC Hgb Hct MCV MCH MCHC RDW Plt Count pCO2 pO2 HCO3 ABG pH ABG Total CO2 ABG O2 Saturation ABG Base Excess Favian Test ABG Potassium A-a O2 Difference Glucose Lactate Vent Mode Mechanical Rate FiO2 Tidal Volume PEEP Sodium Potassium Chloride Carbon Dioxide Anion Gap BUN Creatinine Est GFR ( Amer) Est GFR (Non-Af Amer) POC Glucose (mg/dL) 106 121 H 140 H Random Glucose Calcium Arterial Blood Potassium 11/24/18 11/24/18 11/24/18 05:00 05:00 06:07 WBC 5.2 RBC 3.67 L Hgb 9.7 L Hct 30.7 L MCV 83.5 MCH 26.3 L MCHC 31.5 L RDW 21.8 H Plt Count 151 pCO2 pO2 HCO3 ABG pH ABG Total CO2 ABG O2 Saturation ABG Base Excess Favian Test ABG Potassium A-a O2 Difference Glucose Lactate Vent Mode Mechanical Rate FiO2 Tidal Volume PEEP Sodium 142 Potassium 3.3 L Chloride 101 Carbon Dioxide 34 H Anion Gap 10 BUN 28 H Creatinine 0.9 Est GFR ( Amer) > 60 Est GFR (Non-Af Amer) 60 POC Glucose (mg/dL) 139 H Random Glucose 130 H Calcium 8.2 L Arterial Blood Potassium 11/24/18 06:45 WBC RBC Hgb Hct MCV MCH MCHC RDW Plt Count pCO2 50 H pO2 113 H HCO3 31.4 H ABG pH 7.44 ABG Total CO2 35.5 H ABG O2 Saturation 99.5 H ABG Base Excess 8.3 H Favian Test Yes ABG Potassium 3.3 L A-a O2 Difference 252.0 Glucose 149 H Lactate 1.1 Vent Mode A/c Mechanical Rate 12 FiO2 60.0 Tidal Volume 400 PEEP 5 Sodium 140.0 Potassium Chloride 108.0 H Carbon Dioxide Anion Gap BUN Creatinine Est GFR ( Amer) Est GFR (Non-Af Amer) POC Glucose (mg/dL) Random Glucose Calcium Arterial Blood Potassium 3.3 L Assessment & Plan (1) Acute respiratory failure with hypoxia and hypercarbia Status: Acute (2) Bacteremia Status: Acute (3) Diabetes mellitus type 2 in obese Status: Acute (4) Pleural effusion Status: Acute (5) Respiratory failure Status: Acute - Assessment and Plan (Free Text) Assessment: 82 years old female with hx of CHF, HTN, DM and Hypothyroidism who was admitted at [facility] in early October with respiratory failure Was treated here and extubated successfully all cultures were negative Now readmitted with hypercapneic resp failure and possible sepsis/bacteremia PICC line to be changed when possible Cont empiric IV antibiotics
[2018-11-24] MEDS: Propofol 10 mg/ml 1,000 MG/100 ML VIAL IV SCH (13:16)
[2018-11-24] MEDS: Acetaminophen 650mg/20.3ml solution UD GT PRN (17:57)
--- NOTE | 2018-11-24 21:10 | CP.PCM.HP ---
History of Present Illness - History of Present Illness History of Present Illness: This is an 83 y/o female admitted for increasing lethargy while at the longterm. She was just recently discharged from the hospital to [facility] after treatment of hypercarbia and hypoxemia. She had previous hospitalizations in the past , the most recent was in [place] for the same reason of hypercarbia. She was intubated on both hospitalizations. She has a hx of HTN DM 2 hypothyroidism and CHF and hypercarbic respiratory failure. Initial ABG;s showed a pCO2 of 115 Present on Admission - Present on Admission Any Indicators Present on Admission: No History of DVT/PE: No History of Uncontrolled Diabetes: Yes Urinary Catheter: No Decubitus Ulcer Present: No Review of Systems - Respiratory Respiratory: Dyspnea Past Patient History - Infectious Disease Hx of Infectious Diseases: None - Past Medical History & Family History Past Medical History?: Yes - Past Social History Smoking Status: Never Smoked - CARDIAC Hx Congestive Heart Failure: Yes Hx Hypertension: Yes Hx Pacemaker: Yes - PULMONARY Hx Pneumonia: Yes Other/Comment: respiratory Failure - NEUROLOGICAL Hx Neurological Disorder: No - HEENT Hx HEENT Problems: No - RENAL Hx Chronic Kidney Disease: No - ENDOCRINE/METABOLIC Hx Hypothyroidism: Yes - HEMATOLOGICAL/ONCOLOGICAL Hx Blood Disorders: No - INTEGUMENTARY Hx Dermatological Problems: No - MUSCULOSKELETAL/RHEUMATOLOGICAL Hx Falls: No - GASTROINTESTINAL Hx Diverticulitis: Yes - GENITOURINARY/GYNECOLOGICAL Hx Genitourinary Disorders: No - PSYCHIATRIC Hx Substance Use: No - SURGICAL HISTORY Hx Orthopedic Surgery: Yes Other/Comment: Pacemaker insertion - ANESTHESIA Hx Anesthesia: Yes Hx Anesthesia Reactions: No Hx Malignant Hyperthermia: No Meds Allergies/Adverse Reactions: Allergies Allergy/AdvReac Type Severity Reaction Status Date / Time ibuprofen [From Advil] Allergy RASH Verified 11/05/18 20:31 Physical Exam - Constitutional Appears: Toxic Additional comments: sedated , intubated - Head Exam Head Exam: NORMAL INSPECTION - Eye Exam Eye Exam: Normal appearance - ENT Exam ENT Exam: Mucous Membranes Moist - Respiratory Exam Respiratory Exam: Decreased Breath Sounds - Cardiovascular Exam Cardiovascular Exam: Tachycardia - GI/Abdominal Exam GI & Abdominal Exam: Normal Bowel Sounds - Neurological Exam Neurological exam: Altered Results - Vital Signs Recent Vital Signs: Last Vital Signs Temp 100.7 F H 11/24/18 17:57 Pulse 82 11/24/18 18:00 Resp 17 11/24/18 18:00 BP 103/54 L 11/24/18 18:00 Pulse Ox 98 11/24/18 18:00 - Labs Result Diagrams: 11/24/18 05:00 11/24/18 05:00 Labs: Laboratory Results - last 24 hr 11/23/18 11/23/18 11/24/18 20:51 22:54 05:00 WBC 5.2 RBC 3.67 L Hgb 9.7 L Hct 30.7 L MCV 83.5 MCH 26.3 L MCHC 31.5 L RDW 21.8 H Plt Count 151 pCO2 pO2 HCO3 ABG pH ABG Total CO2 ABG O2 Saturation ABG Base Excess Favian Test ABG Potassium A-a O2 Difference Glucose Lactate Vent Mode Mechanical Rate FiO2 Tidal Volume PEEP Sodium Potassium Chloride Carbon Dioxide Anion Gap BUN Creatinine Est GFR ( Amer) Est GFR (Non-Af Amer) POC Glucose (mg/dL) 121 H 140 H Random Glucose Calcium Arterial Blood Potassium Vancomycin Trough 11/24/18 11/24/18 11/24/18 05:00 06:07 06:45 WBC RBC Hgb Hct MCV MCH MCHC RDW Plt Count pCO2 50 H pO2 113 H HCO3 31.4 H ABG pH 7.44 ABG Total CO2 35.5 H ABG O2 Saturation 99.5 H ABG Base Excess 8.3 H Favian Test Yes ABG Potassium 3.3 L A-a O2 Difference 252.0 Glucose 149 H Lactate 1.1 Vent Mode A/c Mechanical Rate 12 FiO2 60.0 Tidal Volume 400 PEEP 5 Sodium 142 140.0 Potassium 3.3 L Chloride 101 108.0 H Carbon Dioxide 34 H Anion Gap 10 BUN 28 H Creatinine 0.9 Est GFR ( Amer) > 60 Est GFR (Non-Af Amer) 60 POC Glucose (mg/dL) 139 H Random Glucose 130 H Calcium 8.2 L Arterial Blood Potassium 3.3 L Vancomycin Trough 11/24/18 11/24/18 13:51 16:34 WBC RBC Hgb Hct MCV MCH MCHC RDW Plt Count pCO2 pO2 HCO3 ABG pH ABG Total CO2 ABG O2 Saturation ABG Base Excess Favian Test ABG Potassium A-a O2 Difference Glucose Lactate Vent Mode Mechanical Rate FiO2 Tidal Volume PEEP Sodium Potassium Chloride Carbon Dioxide Anion Gap BUN Creatinine Est GFR ( Amer) Est GFR (Non-Af Amer) POC Glucose (mg/dL) 124 H Random Glucose Calcium Arterial Blood Potassium Vancomycin Trough 15.0 H Assessment & Plan (1) Acute respiratory failure with hypoxia and hypercarbia Status: Acute (2) Diabetes mellitus type 2 in obese Status: Acute (3) CHF (congestive heart failure) Status: Chronic Priority: Medium (4) Pleural effusion Status: Acute (5) Bacteremia Status: Acute (6) Dehydration Status: Acute (7) Hypertension Status: Acute - Assessment and Plan (Free Text) Plan: Cont ICU Infectious disease consult empirical IV antibiotics Cont vent support Con tmeds monitor cbc cmp tsh follow up C and S.
[2018-11-24] MEDS: Insulin Detemir 100 Units/ml Inj SC SCH (21:14)
[2018-11-25] MEDS: Piperacillin/Tazobact 3.375 GM in Sodium Chloride 0.9% 100 ML IVPB SCH ×4 (04:11→22:40)
[2018-11-25] MEDS: Propofol 10 mg/ml 1,000 MG/100 ML VIAL IV SCH ×2 (05:30→15:26)
[2018-11-25 06:10] LABS: ABG ALLEN TEST YES; ARTERIAL BLOOD GAS HCO3 30.1 mmol/L (21-28); ARTERIAL BLOOD GAS HEMOGLOBIN 10.2 g/dL (11.7-17.4); ARTERIAL BLOOD GAS O2 CONTENT 13.7 ML/dL (15-23); ARTERIAL BLOOD GAS PCO2 56 mm/Hg (35-45); ARTERIAL BLOOD GAS PH 7.38 (7.35-7.45); ARTERIAL BLOOD GAS PO2 80 mm/Hg (80-100); ARTERIAL BLOOD GAS TCO2 34.8 mmol/L (22-28)
[2018-11-25 06:20] LABS: BASO % 0.6 % (0.0-2.0); EOS # 0.4 K/uL (0.0-0.7); EOS % 7.6 % (0.0-4.0); HEMOGLOBIN 9.9 g/dL (12.0-16.0); LYMPH # 1.4 K/uL (1.0-4.3); LYMPH % 26.7 % (20.0-40.0); MEAN CELL VOLUME 84.2 fl (81.0-99.0); MEAN CORPUSCULAR HEMOGLOBIN 26.6 pg (27.0-31.0); MEAN CORPUSCULAR HGB CONC 31.6 g/dL (33.0-37.0); MONO # 0.5 K/uL (0.0-0.8); NEUT # 2.8 K/uL (1.8-7.0); NEUT % 56.1 % (50.0-75.0); RBC 3.71 Mil/uL (3.80-5.20); RED CELL DISTRIBUTION WIDTH 21.5 % (11.5-14.5); WHITE BLOOD COUNT 5.1 K/uL (4.8-10.8)
[2018-11-25 06:43] LABS: ALB/GLOB RATIO 0.9 (1.0-2.1); ALBUMIN 2.6 g/dL (3.5-5.0); ALT/SGPT 35 U/L (9-52); AST/SGOT 28 U/L (14-36); BLOOD UREA NITROGEN 23 mg/dl (7-17); CALCIUM 8.1 mg/dL (8.4-10.2); GFR NON-AFRICAN AMERICAN > 60
--- NOTE | 2018-11-25 07:35 | CP.PCM.PN ---
<Pierce Yo - Last Filed: 11/25/18 16:45> Subjective - Date & Time of Evaluation Date of Evaluation: 11/25/18 Time of Evaluation: 16:45 - Subjective Subjective: Pierce Yo DO PGY1 - Internal Medicine [employer] - Cardiology Note for Dr. Kim Patient vital signs reviewed overnight, O2 saturation 100% on 50% FI02, CBC and chemistry reviewed. Daughter was present at bedside yesterday evening, ICD card brought. Nursing notes reviewed, no events reported by nursing overnight. Patient continues to be intubated/ sedated Objective - Vital Signs/Intake and Output Vital Signs (last 24 hours): Temp Pulse Resp BP Pulse Ox 99.1 F 98 H 14 118/62 98 11/25/18 04:00 11/25/18 06:00 11/25/18 06:00 11/25/18 06:00 11/25/18 06:00 Intake and Output: 11/25/18 11/25/18 06:59 18:59 Intake Total 1447 Output Total 350 Balance 1097 - Medications Medications: Current Medications Acetaminophen (Tylenol 650mg/20.3ml Solution Ud) 650 mg GT Q6 PRN PRN Reason: temp of > 100.4 F Last Admin: 11/24/18 17:57 Dose: 650 mg Acetaminophen (Tylenol 650mg/20.3ml Solution Ud) 650 mg NG Q4 PRN PRN Reason: fever 100.4 or above Enoxaparin Sodium (Lovenox) 40 mg SC DAILY [facility]; Protocol Last Admin: 11/24/18 08:59 Dose: 40 mg Famotidine (Pepcid) 20 mg IVP Q12 [facility] Last Admin: 11/24/18 21:14 Dose: 20 mg Vancomycin HCl 1 gm/ Sodium (Chloride) 250 mls @ 166.667 mls/hr IVPB Q12 [facility]; Protocol Last Admin: 11/24/18 21:16 Dose: 166.667 mls/hr Piperacillin Sod/Tazobactam (Sod 3.375 gm/ Sodium Chloride) 100 mls @ 100 mls/hr IVPB Q6 [facility]; Protocol Last Admin: 11/25/18 04:11 Dose: 100 mls/hr Propofol (Diprivan) 1,000 mg in 100 mls @ 5.933 mls/hr IV .[id number] [facility]; Protocol Stop: 11/26/18 05:21 Last Admin: 11/25/18 05:30 Dose: 10 mcg/kg/min, 5.933 mls/hr Insulin Detemir (Levemir) 10 units SC [facility] Last Admin: 11/24/18 21:14 Dose: 10 u Insulin Human Regular (Humulin R) 0 units SC ACCU-CHECK [facility]; Protocol Last Admin: 11/24/18 23:26 Dose: Not Given Losartan Potassium (Cozaar) 25 mg PO DAILY [facility] Last Admin: 11/24/18 09:08 Dose: 25 mg Spironolactone (Aldactone) 12.5 mg PO DAILY [facility] - Labs Labs: 11/25/18 06:00 11/25/18 06:00 Physical Exam - Constitutional Additional comments: Intubated/ Sedated - Eye Exam Eye Exam: absent: Scleral icterus - ENT Exam Additional comments: ET tube in place - Neck Exam Additional comments: no JVD - Respiratory Exam Respiratory Exam: Decreased Breath Sounds. absent: Wheezes - Cardiovascular Exam Cardiovascular Exam: RRR (Heart sounds distant), +S1, +S2 - GI/Abdominal Exam GI & Abdominal Exam: Normal Bowel Sounds, Soft. absent: Tenderness - Neurological Exam Additional comments: Sedated - Psychiatric Exam Psychiatric exam: Normal Affect Assessment and Plan - Assessment and Plan (Free Text) Plan: ICD interrogated today; No device abnormalities Will plan for invasive assessment of coronary vascularization Follow up AM BNP on 11/26 <Julio,Douglas - Last Filed: 11/26/18 18:46> Objective - Vital Signs/Intake and Output Vital Signs (last 24 hours): Temp Pulse Resp BP Pulse Ox 99.5 F 83 13 112/42 L 99 11/26/18 18:00 11/26/18 18:00 11/26/18 18:00 11/26/18 18:00 11/26/18 18:00 Intake and Output: 11/26/18 11/26/18 06:59 18:59 Intake Total 1674 1694 Output Total 329 1300 Balance 1345 394 - Medications Medications: Current Medications Acetaminophen (Tylenol 650mg/20.3ml Solution Ud) 650 mg GT Q6 PRN PRN Reason: temp of > 100.4 F Last Admin: 11/24/18 17:57 Dose: 650 mg Acetaminophen (Tylenol 650mg/20.3ml Solution Ud) 650 mg NG Q4 PRN PRN Reason: fever 100.4 or above Albuterol/Ipratropium (Duoneb 3 Mg/0.5 Mg (3 Ml) Ud) 3 ml INH RQ4 [facility] Last Admin: 11/26/18 15:03 Dose: 3 ml Enoxaparin Sodium (Lovenox) 40 mg SC DAILY [facility]; Protocol Last Admin: 11/26/18 08:47 Dose: 40 mg Famotidine (Pepcid) 20 mg IVP Q12 [facility] Last Admin: 11/26/18 08:45 Dose: 20 mg Furosemide (Lasix) 40 mg IV BID [facility] Stop: 11/28/18 17:01 Last Admin: 11/26/18 16:16 Dose: 40 mg Vancomycin HCl 1 gm/ Sodium (Chloride) 250 mls @ 166.667 mls/hr IVPB Q12 [facility]; Protocol Last Admin: 11/26/18 08:47 Dose: 166.667 mls/hr Piperacillin Sod/Tazobactam (Sod 3.375 gm/ Sodium Chloride) 100 mls @ 100 mls/hr IVPB Q6 [facility]; Protocol Last Admin: 11/26/18 16:16 Dose: 100 mls/hr Propofol (Diprivan) 1,000 mg in 100 mls @ 3.1 mls/hr IV .Q24H [facility]; Protocol Stop: 11/27/18 17:35 Last Admin: 11/26/18 15:40 Dose: 5 mcg/kg/min, 3.1 mls/hr Insulin Detemir (Levemir) 10 units SC HS [facility] Last Admin: 11/25/18 21:47 Dose: 10 u Insulin Human Regular (Humulin R) 0 units SC ACCU-CHECK [facility]; Protocol Last Admin: 11/26/18 16:58 Dose: Not Given Losartan Potassium (Cozaar) 25 mg PO DAILY [facility] Last Admin: 11/26/18 08:45 Dose: 25 mg Spironolactone (Aldactone) 12.5 mg PO DAILY [facility] - Labs Labs: 11/26/18 04:30 11/26/18 04:30 Attending/Attestation - Attestation I have personally seen and examined this patient.: Yes I have fully participated in the care of the patient.: Yes I have reviewed all pertinent clinical information, including history, physical exam and plan: Yes
--- NOTE | 2018-11-25 08:59 | CP.PCM.PN ---
<Elmira Russ - Last Filed: 11/25/18 11:41> Subjective - Date & Time of Evaluation Date of Evaluation: 11/25/18 Time of Evaluation: 08:58 - Subjective Subjective: No acute overnight events. Pt seen and examined by bedside this AM. Pt is intubated and sedated. AC control Rate 12, Volume 0.4L, PEEP 5 and FIO2 50%. Pt responds to physical stimuli. Afebrile overnight, Tmax over 24 hrs 100.7. Objective - Vital Signs/Intake and Output Vital Signs (last 24 hours): Temp Pulse Resp BP Pulse Ox 99.2 F 100 H 11 L 125/72 99 11/25/18 08:00 11/25/18 08:00 11/25/18 08:00 11/25/18 08:00 11/25/18 08:00 Intake and Output: 11/25/18 11/25/18 06:59 18:59 Intake Total 1447 Output Total 350 Balance 1097 - Medications Medications: Current Medications Acetaminophen (Tylenol 650mg/20.3ml Solution Ud) 650 mg GT Q6 PRN PRN Reason: temp of > 100.4 F Last Admin: 11/24/18 17:57 Dose: 650 mg Acetaminophen (Tylenol 650mg/20.3ml Solution Ud) 650 mg NG Q4 PRN PRN Reason: fever 100.4 or above Enoxaparin Sodium (Lovenox) 40 mg SC DAILY [facility]; Protocol Last Admin: 11/24/18 08:59 Dose: 40 mg Famotidine (Pepcid) 20 mg IVP Q12 [facility] Last Admin: 11/24/18 21:14 Dose: 20 mg Vancomycin HCl 1 gm/ Sodium (Chloride) 250 mls @ 166.667 mls/hr IVPB Q12 [facility]; Protocol Last Admin: 11/24/18 21:16 Dose: 166.667 mls/hr Piperacillin Sod/Tazobactam (Sod 3.375 gm/ Sodium Chloride) 100 mls @ 100 mls/hr IVPB Q6 [facility]; Protocol Last Admin: 11/25/18 04:11 Dose: 100 mls/hr Propofol (Diprivan) 1,000 mg in 100 mls @ 5.933 mls/hr IV .[id number] [facility]; Protocol Stop: 11/26/18 05:21 Last Admin: 11/25/18 05:30 Dose: 10 mcg/kg/min, 5.933 mls/hr Insulin Detemir (Levemir) 10 units SC [facility] Last Admin: 11/24/18 21:14 Dose: 10 u Insulin Human Regular (Humulin R) 0 units SC ACCU-CHECK [facility]; Protocol Last Admin: 11/24/18 23:26 Dose: Not Given Losartan Potassium (Cozaar) 25 mg PO DAILY [facility] Last Admin: 11/24/18 09:08 Dose: 25 mg Spironolactone (Aldactone) 12.5 mg PO DAILY [facility] - Labs Labs: 11/25/18 06:00 11/25/18 06:00 - Constitutional Appears: No Acute Distress, Other (intuabted and sedated with propofol ) - Head Exam Head Exam: NORMAL INSPECTION - Eye Exam Additional comments: eyes reactive to light b/l - ENT Exam ENT Exam: Mucous Membranes Moist - Respiratory Exam Respiratory Exam: NORMAL BREATHING PATTERN Additional comments: course breath sounds b/l - Cardiovascular Exam Cardiovascular Exam: REGULAR RHYTHM, +S1, +S2 - GI/Abdominal Exam GI & Abdominal Exam: Distended (obese ), Soft, Normal Bowel Sounds - Exam Additional comments: amaral cath noted, draining clear yellow urine - Extremities Exam Extremities Exam: Normal Inspection. absent: Pedal Edema - Skin Skin Exam: Normal Color, Warm Assessment and Plan (1) Bacteremia Status: Acute (2) Sepsis Status: Acute (3) CHF (congestive heart failure) Status: Chronic (4) Respiratory failure Status: Acute - Assessment and Plan (Free Text) Assessment: Assessment/Plan: 83 YO female with PMHx of HTN, CHF (w/ pacemaker), DM, hypothyroidism, admitted due to recurrent hypercapneic respiratory failure. Patient brought to ED on 11/22/18 for LATONIA due to AMS, intubated and admitted to ICU. -Recurrent hypercapneic respiratory failure s/p intubation and on MV on 11/22/18 pulmonary on board, CXR appreciated Intubated, sedated, decrease sedation -CHF, pacemaker Cardiology on board, interrogate ICD, cath? -Bacteremia, sepsis Blood cx 11/22/18: Gram positive cocci in pairs c/w Vancomycin and Zosyn -DVT prophylx <Tapan Hatch - Last Filed: 12/09/18 12:05> Objective - Vital Signs/Intake and Output Vital Signs (last 24 hours): Temp Pulse Resp BP Pulse Ox 97.1 F L 85 30 H 94/47 L 98 12/09/18 08:00 12/09/18 11:29 12/09/18 10:00 12/09/18 10:00 12/09/18 10:00 Intake and Output: 12/09/18 12/09/18 06:59 18:59 Intake Total 282 500 Output Total 1000 140 Balance -718 360 - Medications Medications: Current Medications Acetaminophen (Tylenol 325mg Tab) 650 mg PO Q6 PRN PRN Reason: Pain, Mild (1-3) Acetaminophen (Tylenol 325mg Tab) 650 mg PO Q6 PRN PRN Reason: Fever >100.4 F Acetazolamide (Diamox 250 Mg Tab) 250 mg PO BID [facility] Last Admin: 12/09/18 08:52 Dose: 250 mg Albuterol/Ipratropium (Duoneb 3 Mg/0.5 Mg (3 Ml) Ud) 3 ml INH RQ4 [facility] Last Admin: 12/09/18 11:21 Dose: 3 ml Bumetanide (Bumex) 1 mg IVP DAILY [facility] Last Admin: 12/09/18 10:13 Dose: 1 mg Enoxaparin Sodium (Lovenox) 40 mg SC DAILY [facility]; Protocol Last Admin: 12/09/18 08:52 Dose: 40 mg Piperacillin Sod/Tazobactam (Sod 3.375 gm/ Sodium Chloride) 100 mls @ 100 mls/hr IVPB Q6 [facility]; Protocol Last Admin: 12/09/18 09:01 Dose: 100 mls/hr Insulin Detemir (Levemir) 10 units SC [facility] Last Admin: 12/08/18 21:03 Dose: 10 u Insulin Human Regular (Humulin R) 0 units SC ACCU-CHECK [facility]; Protocol Last Admin: 12/09/18 11:34 Dose: 2 u Losartan Potassium (Cozaar) 25 mg PO DAILY [facility] Last Admin: 12/09/18 08:52 Dose: 25 mg Metoprolol Succinate (Toprol Xl) 25 mg PO DAILY [facility] Last Admin: 12/09/18 08:54 Dose: 25 mg Potassium Chloride (Potassium Chloride Oral Soln) 40 meq PO BID [facility] Last Admin: 12/09/18 08:53 Dose: 40 meq Risperidone (Risperidone Odt 0.25mg) 0.25 mg PO HS [facility] Last Admin: 12/08/18 21:03 Dose: 0.25 mg Spironolactone (Aldactone) 12.5 mg PO DAILY [facility] Last Admin: 12/09/18 11:34 Dose: 12.5 mg - Labs Labs: 12/09/18 04:20 12/09/18 04:20 Assessment and Plan (1) Acute respiratory failure with hypoxia and hypercarbia Status: Acute (2) Diabetes mellitus type 2 in obese Status: Acute (3) CHF (congestive heart failure) Status: Chronic (4) Pleural effusion Status: Acute (5) Bacteremia Status: Resolved (6) Dehydration Status: Acute (7) Hypertension Status: Acute Attending/Attestation - Attestation I have personally seen and examined this patient.: Yes I have fully participated in the care of the patient.: Yes I have reviewed all pertinent clinical information, including history, physical exam and plan: Yes
--- NOTE | 2018-11-25 09:40 | RAD ---
Date of service: 11/25/2018 HISTORY: intubated/mechanical ventilator COMPARISON: 11/24/2018 FINDINGS: LUNGS: Obscuration left hemidiaphragm/left basal opacity similar left pleural effusion with passive compressive atelectasis with or without infiltrate here inferred. Discoid atelectasis left mid lung zone-similar. Right infra/perihilar wedge-like opacity probably subsegmental atelectasis. Concomitant infiltrate here not excluded. Similar appearance Endotracheal tube tip approximately 4 cm cephalad to mamadou. PLEURA: Left pleural effusion-similar. The thorax appreciated. CARDIOVASCULAR: There is presence of aortic atherosclerotic calcification on x-ray. Cardiomegaly-similar Pulmonary venous congestion inferred right slightly more accentuated than left. Position/ configuration of pacemaker satisfactory and similar. OSSEOUS STRUCTURES: No significant abnormalities. Bilateral shoulder arthrosis. Cervical thoracic spondylosis. VISUALIZED UPPER ABDOMEN: Nasogastric tube courses over stomach tip beyond inferior field of view. OTHER FINDINGS: None. IMPRESSION: No interval pathology noted. Cardiomegaly, left pleural effusion with inferred compressive atelectasis here. Concomitant underlying infiltrate not excluded. Right [place] hilar/infrahilar wedge-like opacity atelectasis and/or infiltrate here and/or focal greater pulmonary edema are all considerations. Overall appearance similar. Pulmonary venous congestion-similar. Other findings as above.
[2018-11-25] MEDS: Enoxaparin 40 mg Syringe SC SCH (10:18)
[2018-11-25] MEDS: Insulin Regular 100 units/ml SC SCH ×4 (10:19→22:59)
--- NOTE | 2018-11-25 14:19 | CP.PCM.PN ---
Subjective - Date & Time of Evaluation Date of Evaluation: 11/25/18 Time of Evaluation: 08:00 - Subjective Subjective: Pt is intubated and sedated. AC control Rate 12, Volume 0.4L, PEEP 5 and FIO2 50%. Pt responds to physical stimuli. Afebrile overnight, Tmax over 24 hrs 100.7. Objective - Vital Signs/Intake and Output Vital Signs (last 24 hours): Temp Pulse Resp BP Pulse Ox 98.8 F 77 12 102/56 L 99 11/25/18 12:00 11/25/18 13:00 11/25/18 13:00 11/25/18 13:00 11/25/18 13:00 Intake and Output: 11/25/18 11/25/18 06:59 18:59 Intake Total 1447 954 Output Total 350 Balance 1097 954 - Medications Medications: Current Medications Acetaminophen (Tylenol 650mg/20.3ml Solution Ud) 650 mg GT Q6 PRN PRN Reason: temp of > 100.4 F Last Admin: 11/24/18 17:57 Dose: 650 mg Acetaminophen (Tylenol 650mg/20.3ml Solution Ud) 650 mg NG Q4 PRN PRN Reason: fever 100.4 or above Enoxaparin Sodium (Lovenox) 40 mg SC DAILY [facility]; Protocol Last Admin: 11/25/18 10:18 Dose: 40 mg Famotidine (Pepcid) 20 mg IVP Q12 [facility] Last Admin: 11/25/18 10:17 Dose: 20 mg Vancomycin HCl 1 gm/ Sodium (Chloride) 250 mls @ 166.667 mls/hr IVPB Q12 [facility]; Protocol Last Admin: 11/25/18 10:20 Dose: 166.667 mls/hr Piperacillin Sod/Tazobactam (Sod 3.375 gm/ Sodium Chloride) 100 mls @ 100 mls/hr IVPB Q6 [facility]; Protocol Last Admin: 11/25/18 10:45 Dose: 100 mls/hr Propofol (Diprivan) 1,000 mg in 100 mls @ 5.933 mls/hr IV .[id number] [facility]; Protocol Stop: 11/26/18 05:21 Last Titration: 11/25/18 12:00 Dose: 20 mcg/kg/min, 11.866 mls/hr Insulin Detemir (Levemir) 10 units SC [facility] Last Admin: 11/24/18 21:14 Dose: 10 u Insulin Human Regular (Humulin R) 0 units SC ACCU-CHECK [facility]; Protocol Last Admin: 11/25/18 12:54 Dose: Not Given Losartan Potassium (Cozaar) 25 mg PO DAILY [facility] Last Admin: 11/25/18 10:17 Dose: 25 mg Spironolactone (Aldactone) 12.5 mg PO DAILY [facility] - Labs Labs: 11/25/18 06:00 11/25/18 06:00 - Constitutional Appears: Non-toxic, Cachectic, Chronically Ill - Head Exam Head Exam: NORMOCEPHALIC - Eye Exam Eye Exam: absent: Scleral icterus - ENT Exam ENT Exam: Mucous Membranes Dry - Neck Exam Neck Exam: absent: Lymphadenopathy - Respiratory Exam Respiratory Exam: Decreased Breath Sounds, Prolonged Expiratory Phase - Cardiovascular Exam Cardiovascular Exam: REGULAR RHYTHM, +S1, +S2 - GI/Abdominal Exam GI & Abdominal Exam: Distended, Soft. absent: Tenderness - Rectal Exam Rectal Exam: Deferred - Exam Exam: NORMAL INSPECTION - Extremities Exam Extremities Exam: Pedal Edema - Back Exam Back Exam: absent: CVA tenderness (L), CVA tenderness (R) - Neurological Exam Neurological Exam: Alert, Altered, CN II-XII Intact - Psychiatric Exam Psychiatric exam: Depressed - Skin Skin Exam: Dry Assessment and Plan (1) Acute respiratory failure with hypoxia and hypercarbia Status: Acute (2) Bacteremia Status: Acute (3) Diabetes mellitus type 2 in obese Status: Acute (4) Pleural effusion Status: Acute (5) Respiratory failure Status: Acute - Assessment and Plan (Free Text) Assessment: await miles cultures consider changing/replacing PICC if not done yet repeat Legionella ag and culture Pulm eval consider CT angio chest, pulm eval IV antibiotics
[2018-11-25] MEDS ORDERED: Micafungin 100 MG in Sodium Chloride 0.9% 100 ML IV SCH (14:30)
--- NOTE | 2018-11-25 15:41 | CP.CCUPN ---
CCU Subjective - Physician Review Subjective (Free Text): Sedated, but appropriately responsive off Propofol, later resumed. Breathing 12, on AC 12. 50% oxygen with PEEP 5, SPo2 = 100% Afebrile, no fever spikes overnight, Tmax 100.7F yesterday afternoon, SBP 110- 120s; HR 80s, fluid balance =2.6L. ROS: No other pertinent negs or positives on 10+ system review. Allergies: NKDA PMSFH: CHF, HTN, DM, hypothyroidism, Pacemaker insertion, knee surgery. All other Nursing and physician documentation reviewed to date; no new pertinent info noted relevant to current medical problems. EXAM- HEENT: no icterus, no gaze preference NECK: No JVD visible given short neck and overall obesity, supple, carotids equal upstroke bilat/no bruit CHEST: decreased BS at the bases, no wheezes audible bilaterally. HEART: regular, distant, S1S2, no rubs or murmurs noted ABD: soft, obese, nontender, no guarding, no organomegaly, BS hypoactive. EXT: trace to +1 leg edema- SCDs on bilat, no calf tenderness or palpable cords, distal pulses intact and symmetrical. RUE single lumen PICC. NEURO: withdraws to pain, + tone in all extremities. SKIN: no rashes, warm and dry LABS: WBC= 5.1 HGB= 9.9 PLTs= 144K Na= 142 K= 3.7 CL= 106 HCO3= 33 BUN/Cr= 23/0.8 BS= 116 CXR: (my interp)- RML, LLL interstitial changes, Left hemidiaphragm not visible. ETT tip position ok above mamadou. IMPRESSION / MAJOR PROBLEMS NOW: 1. Acute Hypercapneic Resp Failure, 2 bilat Pneumonia / COPD Exacerbation 2. Metabolic Encephalopathy with AMS 2 #1 3. h/o CHF-not decompensated 4. h/o DM II PLAN: 1. Try decreasing FiO2 to 45% as tolerated, PO2 on ABG already borderline. 2. ECHO from Oct 2018 reviewed. Lasix prn. 3. One positive BC for GPC, and yeast found in sputum. Check repeat cultures. PICC line removal and replacement. Abx coverage as per ID. 4. Add Duonebs Q4H.
[2018-11-25] MEDS: Albuterol-Ipratrop 3 mg / 0.5 (3 ml) UD INH SCH ×3 (17:36→23:51)
[2018-11-25] MEDS: Insulin Detemir 100 Units/ml Inj SC SCH (21:47)
[2018-11-26] MEDS: Albuterol-Ipratrop 3 mg / 0.5 (3 ml) UD INH SCH ×6 (03:52→23:47)
[2018-11-26] MEDS: Piperacillin/Tazobact 3.375 GM in Sodium Chloride 0.9% 100 ML IVPB SCH ×4 (04:07→23:00)
[2018-11-26 04:46] LABS: ABG ALLEN TEST YES; ARTERIAL BLOOD GAS HCO3 30.8 mmol/L (21-28); ARTERIAL BLOOD GAS HEMOGLOBIN 9.2 g/dL (11.7-17.4); ARTERIAL BLOOD GAS O2 CAPACITY 12.6 mL/dL (16-24); ARTERIAL BLOOD GAS O2 CONTENT 12.5 ML/dL (15-23); ARTERIAL BLOOD GAS O2 SAT 98.9 % (95-98); ARTERIAL BLOOD GAS PCO2 48 mm/Hg (35-45); ARTERIAL BLOOD GAS PH 7.44 (7.35-7.45); ARTERIAL BLOOD GAS PO2 82 mm/Hg (80-100); ARTERIAL BLOOD GAS TCO2 34.1 mmol/L (22-28)
[2018-11-26 05:33] LABS: BASO % 0.2 % (0.0-2.0); EOS # 0.3 K/uL (0.0-0.7); EOS % 7.3 % (0.0-4.0); LYMPH # 1.1 K/uL (1.0-4.3); LYMPH % 25.9 % (20.0-40.0); MEAN CORPUSCULAR HGB CONC 32.2 g/dL (33.0-37.0); MEAN PLATELET VOLUME 9.4 fl (7.2-11.7); MONO # 0.4 K/uL (0.0-0.8); MONO % 9.7 % (0.0-10.0); NEUT # 2.4 K/uL (1.8-7.0); NEUT % 56.9 % (50.0-75.0); NRBC % 0.1 % (0.0-0.0); RBC 3.34 Mil/uL (3.80-5.20); RED CELL DISTRIBUTION WIDTH 21.6 % (11.5-14.5); WHITE BLOOD COUNT 4.2 K/uL (4.8-10.8)
[2018-11-26 05:59] LABS: ALB/GLOB RATIO 0.8 (1.0-2.1); ALBUMIN 2.5 g/dL (3.5-5.0); ALT/SGPT 29 U/L (9-52); AST/SGOT 21 U/L (14-36); B-TYPE NATRIURETIC PEPTIDE 995 pg/ml (0-900); BLOOD UREA NITROGEN 18 mg/dl (7-17); CALCIUM 8.6 mg/dL (8.4-10.2); GFR NON-AFRICAN AMERICAN > 60
[2018-11-26] MEDS: Insulin Regular 100 units/ml SC SCH ×4 (06:26→23:24)
--- NOTE | 2018-11-26 07:56 | RAD ---
Date of service: 11/26/2018 HISTORY: Pt intubated COMPARISON: Chest x-ray 11/25/2018 TECHNIQUE: Chest one view . FINDINGS: Patient is rotated, limiting evaluation. LUNGS: Right upper lobe and perihilar consolidations appears grossly unchanged when allowing for differences in technique. Endotracheal tube tip is above the mamadou. There is mild bibasilar atelectasis. PLEURA: Probable small left pleural effusion; underlying consolidation not excluded.. CARDIOVASCULAR: Cardiomegaly. Atherosclerotic calcifications present of the aorta. Multi lead left-sided cardiac pacemaker/AICD again visualized. OSSEOUS STRUCTURES: No acute fracture identified. VISUALIZED UPPER ABDOMEN: Enteric feeding tube visualized with tip not clearly visualized on this exam. OTHER FINDINGS: None. IMPRESSION: Stable right upper lobe and perihilar consolidations. Mild bibasilar atelectasis. Probable small left pleural effusion; underlying consolidation not excluded. Enteric feeding tube visualized with tip not clearly visualized on this exam.
[2018-11-26] MEDS: Enoxaparin 40 mg Syringe SC SCH (08:47)
[2018-11-26] MEDS: Propofol 10 mg/ml 1,000 MG/100 ML VIAL IV SCH ×3 (08:49→23:39)
--- NOTE | 2018-11-26 09:49 | CP.PCM.PN ---
<Elmira Russ - Last Filed: 11/26/18 11:47> Subjective - Date & Time of Evaluation Date of Evaluation: 11/26/18 Time of Evaluation: 09:49 - Subjective Subjective: No acute overnight events. Pt seen and examined by bedside this AM with Dr. Hatch Responds to physical stimuli. Intubated and sedated. Objective - Vital Signs/Intake and Output Vital Signs (last 24 hours): Temp Pulse Resp BP Pulse Ox 99.3 F 72 12 103/60 98 11/26/18 08:00 11/26/18 08:45 11/26/18 08:00 11/26/18 08:45 11/26/18 08:00 Intake and Output: 11/26/18 11/26/18 06:59 18:59 Intake Total 1674 100 Output Total 329 Balance 1345 100 - Medications Medications: Current Medications Acetaminophen (Tylenol 650mg/20.3ml Solution Ud) 650 mg GT Q6 PRN PRN Reason: temp of > 100.4 F Last Admin: 11/24/18 17:57 Dose: 650 mg Acetaminophen (Tylenol 650mg/20.3ml Solution Ud) 650 mg NG Q4 PRN PRN Reason: fever 100.4 or above Albuterol/Ipratropium (Duoneb 3 Mg/0.5 Mg (3 Ml) Ud) 3 ml INH RQ4 [facility] Last Admin: 11/26/18 07:45 Dose: 3 ml Enoxaparin Sodium (Lovenox) 40 mg SC DAILY [facility]; Protocol Last Admin: 11/26/18 08:47 Dose: 40 mg Famotidine (Pepcid) 20 mg IVP Q12 [facility] Last Admin: 11/26/18 08:45 Dose: 20 mg Vancomycin HCl 1 gm/ Sodium (Chloride) 250 mls @ 166.667 mls/hr IVPB Q12 [facility]; Protocol Last Admin: 11/26/18 08:47 Dose: 166.667 mls/hr Piperacillin Sod/Tazobactam (Sod 3.375 gm/ Sodium Chloride) 100 mls @ 100 mls/hr IVPB Q6 [facility]; Protocol Last Admin: 11/26/18 04:07 Dose: 100 mls/hr Insulin Detemir (Levemir) 10 units SC HS [facility] Last Admin: 11/25/18 21:47 Dose: 10 u Insulin Human Regular (Humulin R) 0 units SC ACCU-CHECK [facility]; Protocol Last Admin: 11/26/18 06:26 Dose: Not Given Losartan Potassium (Cozaar) 25 mg PO DAILY [facility] Last Admin: 11/26/18 08:45 Dose: 25 mg Spironolactone (Aldactone) 12.5 mg PO DAILY [facility] - Labs Labs: 11/26/18 04:30 11/26/18 04:30 - Constitutional Appears: No Acute Distress, Other (intuabted and sedated, OG tube noted) - Head Exam Head Exam: NORMAL INSPECTION - ENT Exam ENT Exam: Mucous Membranes Moist - Respiratory Exam Respiratory Exam: Decreased Breath Sounds (in the lower lobes ), NORMAL BREATHING PATTERN (course breath sounds, mild crakles noted in the lower lobes b/l ) - Cardiovascular Exam Cardiovascular Exam: REGULAR RHYTHM, +S1, +S2 - GI/Abdominal Exam GI & Abdominal Exam: Distended, Soft, Tenderness, Hyperactive Bowel Sounds - Extremities Exam Extremities Exam: Normal Inspection. absent: Pedal Edema Additional comments: Upper ext edema b/l. R>L Line noted in R upper ext, no erythema noted, site clean and intact Assessment and Plan (1) Bacteremia Status: Acute (2) Sepsis Status: Acute (3) CHF (congestive heart failure) Status: Chronic (4) Respiratory failure Status: Acute (5) Anemia Status: Chronic - Assessment and Plan (Free Text) Assessment: Assessment/Plan: 83 YO female with PMHx of HTN, CHF (w/ pacemaker), DM, hypothyroidism, admitted due to recurrent hypercapneic respiratory failure. Patient brought to ED on 11/22/18 for LATONIA due to AMS, intubated and admitted to ICU. -Recurrent hypercapneic respiratory failure s/p intubation and on MV on 11/22/18 pulmonary on board, CXR appreciated; questionable infiltrates Intubated, sedated on propofol c/w with IV abx -CHF, pacemaker Cardiology on board, interrogate ICD, cath? -Bacteremia, sepsis Blood cx 11/22/18: Gram positive cocci in pairs BCx 11/24 neg c/w Vancomycin and Zosyn -DVT prophylx <Tapan Hatch - Last Filed: 12/09/18 12:03> Objective - Vital Signs/Intake and Output Vital Signs (last 24 hours): Temp Pulse Resp BP Pulse Ox 97.1 F L 85 30 H 94/47 L 98 12/09/18 08:00 12/09/18 11:29 12/09/18 10:00 12/09/18 10:00 12/09/18 10:00 Intake and Output: 12/09/18 12/09/18 06:59 18:59 Intake Total 282 500 Output Total 1000 140 Balance -718 360 - Medications Medications: Current Medications Acetaminophen (Tylenol 325mg Tab) 650 mg PO Q6 PRN PRN Reason: Pain, Mild (1-3) Acetaminophen (Tylenol 325mg Tab) 650 mg PO Q6 PRN PRN Reason: Fever >100.4 F Acetazolamide (Diamox 250 Mg Tab) 250 mg PO BID [facility] Last Admin: 12/09/18 08:52 Dose: 250 mg Albuterol/Ipratropium (Duoneb 3 Mg/0.5 Mg (3 Ml) Ud) 3 ml INH RQ4 [facility] Last Admin: 12/09/18 11:21 Dose: 3 ml Bumetanide (Bumex) 1 mg IVP DAILY [facility] Last Admin: 12/09/18 10:13 Dose: 1 mg Enoxaparin Sodium (Lovenox) 40 mg SC DAILY [facility]; Protocol Last Admin: 12/09/18 08:52 Dose: 40 mg Piperacillin Sod/Tazobactam (Sod 3.375 gm/ Sodium Chloride) 100 mls @ 100 mls/hr IVPB Q6 [facility]; Protocol Last Admin: 12/09/18 09:01 Dose: 100 mls/hr Insulin Detemir (Levemir) 10 units SC [facility] Last Admin: 12/08/18 21:03 Dose: 10 u Insulin Human Regular (Humulin R) 0 units SC ACCU-CHECK [facility]; Protocol Last Admin: 12/09/18 11:34 Dose: 2 u Losartan Potassium (Cozaar) 25 mg PO DAILY [facility] Last Admin: 12/09/18 08:52 Dose: 25 mg Metoprolol Succinate (Toprol Xl) 25 mg PO DAILY [facility] Last Admin: 12/09/18 08:54 Dose: 25 mg Potassium Chloride (Potassium Chloride Oral Soln) 40 meq PO BID [facility] Last Admin: 12/09/18 08:53 Dose: 40 meq Risperidone (Risperidone Odt 0.25mg) 0.25 mg PO HS [facility] Last Admin: 12/08/18 21:03 Dose: 0.25 mg Spironolactone (Aldactone) 12.5 mg PO DAILY [facility] Last Admin: 12/09/18 11:34 Dose: 12.5 mg - Labs Labs: 12/09/18 04:20 12/09/18 04:20 Assessment and Plan (1) Acute respiratory failure with hypoxia and hypercarbia Status: Acute (2) Diabetes mellitus type 2 in obese Status: Acute (3) CHF (congestive heart failure) Status: Chronic (4) Pleural effusion Status: Acute (5) Bacteremia Status: Resolved (6) Dehydration Status: Acute (7) Hypertension Status: Acute Attending/Attestation - Attestation I have personally seen and examined this patient.: Yes I have fully participated in the care of the patient.: Yes I have reviewed all pertinent clinical information, including history, physical exam and plan: Yes
--- NOTE | 2018-11-26 09:50 | CP.PCM.PN ---
Subjective - Date & Time of Evaluation Date of Evaluation: 11/26/18 Time of Evaluation: 09:50 - Subjective Subjective: STILL INTUBATED AND BEING VENTILATED SEDATED Objective - Vital Signs/Intake and Output Vital Signs (last 24 hours): Temp Pulse Resp BP Pulse Ox 99.3 F 72 12 103/60 98 11/26/18 08:00 11/26/18 08:45 11/26/18 08:00 11/26/18 08:45 11/26/18 08:00 Intake and Output: 11/26/18 11/26/18 06:59 18:59 Intake Total 1674 100 Output Total 329 Balance 1345 100 - Medications Medications: Current Medications Acetaminophen (Tylenol 650mg/20.3ml Solution Ud) 650 mg GT Q6 PRN PRN Reason: temp of > 100.4 F Last Admin: 11/24/18 17:57 Dose: 650 mg Acetaminophen (Tylenol 650mg/20.3ml Solution Ud) 650 mg NG Q4 PRN PRN Reason: fever 100.4 or above Albuterol/Ipratropium (Duoneb 3 Mg/0.5 Mg (3 Ml) Ud) 3 ml INH RQ4 [facility] Last Admin: 11/26/18 07:45 Dose: 3 ml Enoxaparin Sodium (Lovenox) 40 mg SC DAILY [facility]; Protocol Last Admin: 11/26/18 08:47 Dose: 40 mg Famotidine (Pepcid) 20 mg IVP Q12 [facility] Last Admin: 11/26/18 08:45 Dose: 20 mg Vancomycin HCl 1 gm/ Sodium (Chloride) 250 mls @ 166.667 mls/hr IVPB Q12 [facility]; Protocol Last Admin: 11/26/18 08:47 Dose: 166.667 mls/hr Piperacillin Sod/Tazobactam (Sod 3.375 gm/ Sodium Chloride) 100 mls @ 100 mls/hr IVPB Q6 [facility]; Protocol Last Admin: 11/26/18 04:07 Dose: 100 mls/hr Insulin Detemir (Levemir) 10 units SC HS [facility] Last Admin: 11/25/18 21:47 Dose: 10 u Insulin Human Regular (Humulin R) 0 units SC ACCU-CHECK [facility]; Protocol Last Admin: 11/26/18 06:26 Dose: Not Given Losartan Potassium (Cozaar) 25 mg PO DAILY [facility] Last Admin: 11/26/18 08:45 Dose: 25 mg Spironolactone (Aldactone) 12.5 mg PO DAILY [facility] - Labs Labs: 11/26/18 04:30 11/26/18 04:30 - Constitutional Appears: Chronically Ill - Head Exam Head Exam: ATRAUMATIC, NORMAL INSPECTION, NORMOCEPHALIC - Eye Exam Eye Exam: EOMI, Normal appearance, PERRL Pupil Exam: NORMAL ACCOMODATION, PERRL - ENT Exam ENT Exam: Mucous Membranes Moist, Normal Exam - Neck Exam Neck Exam: Full ROM, Normal Inspection. absent: Lymphadenopathy - Respiratory Exam Respiratory Exam: Rales Additional comments: ON THE RESPIRATOR - Cardiovascular Exam Cardiovascular Exam: REGULAR RHYTHM, +S1, +S2. absent: Murmur - GI/Abdominal Exam GI & Abdominal Exam: Soft, Normal Bowel Sounds. absent: Tenderness - Rectal Exam Rectal Exam: NORMAL INSPECTION - Extremities Exam Extremities Exam: Full ROM, Normal Capillary Refill, Normal Inspection. absent: Joint Swelling, Pedal Edema - Back Exam Back Exam: NORMAL INSPECTION - Skin Skin Exam: Dry, Intact, Normal Color, Warm Assessment and Plan - Assessment and Plan (Free Text) Assessment: HYPERCAPNEIC RESP FAILURE Plan: CONTINUE PRESENT RX PROGNOSIS IS GUARDED
--- NOTE | 2018-11-26 13:54 | CP.PCM.PN ---
<Pierce Yo - Last Filed: 11/26/18 18:47> Subjective - Date & Time of Evaluation Date of Evaluation: 11/26/18 Time of Evaluation: 18:47 - Subjective Subjective: Pierce Yo DO PGY1 - Internal Medicine [employer] - Cardiology Note for Dr. Kim Patient seen and examined at bedside this morning, no acute events reported overnight. Patient continues to be intubated and sedated Objective - Vital Signs/Intake and Output Vital Signs (last 24 hours): Temp Pulse Resp BP Pulse Ox 99.5 F 70 12 101/45 L 100 11/26/18 13:00 11/26/18 13:00 11/26/18 13:00 11/26/18 13:00 11/26/18 13:00 Intake and Output: 11/26/18 11/26/18 06:59 18:59 Intake Total 1674 870 Output Total 329 Balance 1345 870 - Medications Medications: Current Medications Acetaminophen (Tylenol 650mg/20.3ml Solution Ud) 650 mg GT Q6 PRN PRN Reason: temp of > 100.4 F Last Admin: 11/24/18 17:57 Dose: 650 mg Acetaminophen (Tylenol 650mg/20.3ml Solution Ud) 650 mg NG Q4 PRN PRN Reason: fever 100.4 or above Albuterol/Ipratropium (Duoneb 3 Mg/0.5 Mg (3 Ml) Ud) 3 ml INH RQ4 [facility] Last Admin: 11/26/18 11:03 Dose: 3 ml Enoxaparin Sodium (Lovenox) 40 mg SC DAILY [facility]; Protocol Last Admin: 11/26/18 08:47 Dose: 40 mg Famotidine (Pepcid) 20 mg IVP Q12 [facility] Last Admin: 11/26/18 08:45 Dose: 20 mg Furosemide (Lasix) 40 mg IV BID [facility] Stop: 11/28/18 17:01 Vancomycin HCl 1 gm/ Sodium (Chloride) 250 mls @ 166.667 mls/hr IVPB Q12 [facility]; Protocol Last Admin: 11/26/18 08:47 Dose: 166.667 mls/hr Piperacillin Sod/Tazobactam (Sod 3.375 gm/ Sodium Chloride) 100 mls @ 100 mls/hr IVPB Q6 [facility]; Protocol Last Admin: 11/26/18 10:55 Dose: 100 mls/hr Insulin Detemir (Levemir) 10 units SC [facility] Last Admin: 11/25/18 21:47 Dose: 10 u Insulin Human Regular (Humulin R) 0 units SC ACCU-CHECK [facility]; Protocol Last Admin: 11/26/18 12:34 Dose: Not Given Losartan Potassium (Cozaar) 25 mg PO DAILY [facility] Last Admin: 11/26/18 08:45 Dose: 25 mg Spironolactone (Aldactone) 12.5 mg PO DAILY [facility] - Labs Labs: 11/26/18 04:30 11/26/18 04:30 Physical Exam - Constitutional Additional comments: Intubated/ Sedated - Eye Exam Eye Exam: absent: Scleral icterus - ENT Exam Additional comments: ET tube in place - Neck Exam Additional comments: no JVD - Respiratory Exam Respiratory Exam: Decreased Breath Sounds. absent: Wheezes - Cardiovascular Exam Cardiovascular Exam: RRR (Heart sounds distant), +S1, +S2 - GI/Abdominal Exam GI & Abdominal Exam: Normal Bowel Sounds, Soft. absent: Tenderness - Neurological Exam Additional comments: Sedated - Psychiatric Exam Psychiatric exam: Normal Affect Assessment and Plan - Assessment and Plan (Free Text) Plan: BNP relatively unremarkable from time of admission 1000 today vs 1300. Maintain Map >65 Can consider neurologic work up for evaluation of central etiologies of respiratory drive failure <Douglas Kim - Last Filed: 12/04/18 22:06> Objective - Vital Signs/Intake and Output Vital Signs (last 24 hours): Temp Pulse Resp BP Pulse Ox 99.0 F 86 17 122/59 L 94 L 12/04/18 16:00 12/04/18 18:00 12/04/18 18:00 12/04/18 18:00 12/04/18 18:00 Intake and Output: 12/04/18 12/05/18 18:59 06:59 Intake Total 1050 Output Total 2024 Balance -975 - Medications Medications: Current Medications Acetaminophen (Tylenol 650mg/20.3ml Solution Ud) 650 mg GT Q6 PRN PRN Reason: temp of > 100.4 F Last Admin: 11/24/18 17:57 Dose: 650 mg Acetaminophen (Tylenol 650mg/20.3ml Solution Ud) 650 mg NG Q4 PRN PRN Reason: fever 100.4 or above Last Admin: 12/03/18 10:36 Dose: 650 mg Albuterol/Ipratropium (Duoneb 3 Mg/0.5 Mg (3 Ml) Ud) 3 ml INH RQ4 [facility] Last Admin: 12/04/18 19:08 Dose: 3 ml Enoxaparin Sodium (Lovenox) 40 mg SC DAILY [facility]; Protocol Last Admin: 12/04/18 08:52 Dose: 40 mg Furosemide (Lasix) 60 mg IV DAILY [facility] Last Admin: 12/04/18 08:51 Dose: 60 mg Vancomycin HCl 1 gm/ Sodium (Chloride) 250 mls @ 166.667 mls/hr IVPB Q12 [facility]; Protocol Last Admin: 12/04/18 21:28 Dose: 166.667 mls/hr Piperacillin Sod/Tazobactam (Sod 3.375 gm/ Sodium Chloride) 100 mls @ 100 mls/hr IVPB Q6 [facility]; Protocol Last Admin: 12/04/18 21:27 Dose: 100 mls/hr Insulin Detemir (Levemir) 10 units SC HS [facility] Last Admin: 12/04/18 21:29 Dose: 10 u Insulin Human Regular (Humulin R) 0 units SC ACCU-CHECK [facility]; Protocol Last Admin: 12/04/18 22:05 Dose: Not Given Lorazepam (Ativan) 1 mg IVP Q4 PRN PRN Reason: Agitation Last Admin: 12/01/18 15:30 Dose: 1 mg Losartan Potassium (Cozaar) 25 mg PO DAILY [facility] Last Admin: 12/04/18 16:21 Dose: Not Given Pantoprazole Sodium (Protonix Inj) 40 mg IVP DAILY [facility] Last Admin: 12/04/18 08:52 Dose: 40 mg Potassium Chloride (Potassium Chloride Oral Soln) 40 meq NG DAILY [facility] Last Admin: 12/04/18 16:21 Dose: Not Given Spironolactone (Aldactone) 12.5 mg PO DAILY [facility] - Labs Labs: 12/04/18 05:36 12/04/18 05:36 Attending/Attestation - Attestation I have personally seen and examined this patient.: Yes I have fully participated in the care of the patient.: Yes I have reviewed all pertinent clinical information, including history, physical exam and plan: Yes
--- NOTE | 2018-11-26 17:10 | CP.PCM.PN ---
Subjective - Date & Time of Evaluation Date of Evaluation: 11/26/18 Time of Evaluation: 08:00 - Subjective Subjective: 82 years old female with hx of CHF, HTN, DM and Hypothyroidism who was admitted at [facility] in early October with respiratory failure Was treated here and extubated successfully all cultures werre negative Now readmitted with hypercapneic resp failure and possible sepsis/bacteremia remains intubated in ICU/ sedated / afeb t max 100.6 Objective - Vital Signs/Intake and Output Vital Signs (last 24 hours): Temp Pulse Resp BP Pulse Ox 99.5 F 100 H 12 106/47 L 98 11/26/18 16:00 11/26/18 16:00 11/26/18 16:00 11/26/18 16:16 11/26/18 16:00 Intake and Output: 11/26/18 11/26/18 06:59 18:59 Intake Total 1674 1178 Output Total 329 Balance 1345 1178 - Medications Medications: Current Medications Acetaminophen (Tylenol 650mg/20.3ml Solution Ud) 650 mg GT Q6 PRN PRN Reason: temp of > 100.4 F Last Admin: 11/24/18 17:57 Dose: 650 mg Acetaminophen (Tylenol 650mg/20.3ml Solution Ud) 650 mg NG Q4 PRN PRN Reason: fever 100.4 or above Albuterol/Ipratropium (Duoneb 3 Mg/0.5 Mg (3 Ml) Ud) 3 ml INH RQ4 [facility] Last Admin: 11/26/18 15:03 Dose: 3 ml Enoxaparin Sodium (Lovenox) 40 mg SC DAILY [facility]; Protocol Last Admin: 11/26/18 08:47 Dose: 40 mg Famotidine (Pepcid) 20 mg IVP Q12 [facility] Last Admin: 11/26/18 08:45 Dose: 20 mg Furosemide (Lasix) 40 mg IV BID [facility] Stop: 11/28/18 17:01 Last Admin: 11/26/18 16:16 Dose: 40 mg Vancomycin HCl 1 gm/ Sodium (Chloride) 250 mls @ 166.667 mls/hr IVPB Q12 [facility]; Protocol Last Admin: 11/26/18 08:47 Dose: 166.667 mls/hr Piperacillin Sod/Tazobactam (Sod 3.375 gm/ Sodium Chloride) 100 mls @ 100 mls/hr IVPB Q6 [facility]; Protocol Last Admin: 11/26/18 16:16 Dose: 100 mls/hr Insulin Detemir (Levemir) 10 units SC [facility] Last Admin: 11/25/18 21:47 Dose: 10 u Insulin Human Regular (Humulin R) 0 units SC ACCU-CHECK [facility]; Protocol Last Admin: 11/26/18 16:58 Dose: Not Given Losartan Potassium (Cozaar) 25 mg PO DAILY [facility] Last Admin: 11/26/18 08:45 Dose: 25 mg Spironolactone (Aldactone) 12.5 mg PO DAILY [facility] - Labs Labs: 11/26/18 04:30 11/26/18 04:30 - Constitutional Appears: Non-toxic, Chronically Ill - Head Exam Head Exam: NORMOCEPHALIC - Eye Exam Eye Exam: absent: Scleral icterus - ENT Exam ENT Exam: Mucous Membranes Dry - Neck Exam Neck Exam: absent: Lymphadenopathy - Respiratory Exam Respiratory Exam: Decreased Breath Sounds, Prolonged Expiratory Phase, Rhonchi - Cardiovascular Exam Cardiovascular Exam: REGULAR RHYTHM - GI/Abdominal Exam GI & Abdominal Exam: Distended, Tenderness. absent: Guarding - Rectal Exam Rectal Exam: Deferred - Exam Exam: NORMAL INSPECTION - Extremities Exam Extremities Exam: Pedal Edema - Back Exam Back Exam: absent: CVA tenderness (L), CVA tenderness (R) - Neurological Exam Neurological Exam: Altered Assessment and Plan (1) Acute respiratory failure with hypoxia and hypercarbia Status: Acute (2) Bacteremia Status: Acute (3) Diabetes mellitus type 2 in obese Status: Acute (4) Pleural effusion Status: Acute (5) Respiratory failure Status: Acute - Assessment and Plan (Free Text) Assessment: 82 years old female with hx of CHF, HTN, DM and Hypothyroidism who was admitted at [facility] in early October with respiratory failure Was treated here and extubated successfully all cultures werre negative Now readmitted with hypercapneic resp failure and possible sepsis/bacteremia Blood cultures 1/2 sets coag neg staph- likely a contaminant urine grew yeast empiric IV rx for HCAP in progress poor prognosis
[2018-11-26] MEDS: Insulin Detemir 100 Units/ml Inj SC SCH (23:00)
[2018-11-27] MEDS: Piperacillin/Tazobact 3.375 GM in Sodium Chloride 0.9% 100 ML IVPB SCH ×4 (04:30→22:20)
[2018-11-27] MEDS: Albuterol-Ipratrop 3 mg / 0.5 (3 ml) UD INH SCH ×6 (04:55→23:52)
[2018-11-27 05:49] LABS: BASO % 0.1 % (0.0-2.0); EOS # 0.2 K/uL (0.0-0.7); EOS % 5.8 % (0.0-4.0); HEMOGLOBIN 9.3 g/dL (12.0-16.0); LYMPH # 0.8 K/uL (1.0-4.3); LYMPH % 20.7 % (20.0-40.0); MEAN CELL VOLUME 83.3 fl (81.0-99.0); MEAN CORPUSCULAR HEMOGLOBIN 26.7 pg (27.0-31.0); MEAN PLATELET VOLUME 9.5 fl (7.2-11.7); MONO # 0.4 K/uL (0.0-0.8); MONO % 10.5 % (0.0-10.0); NEUT # 2.5 K/uL (1.8-7.0); NEUT % 62.9 % (50.0-75.0); NRBC % 0.1 % (0.0-0.0); RBC 3.49 Mil/uL (3.80-5.20); RED CELL DISTRIBUTION WIDTH 21.4 % (11.5-14.5); WHITE BLOOD COUNT 3.9 K/uL (4.8-10.8)
[2018-11-27 05:52] LABS: ABG ALLEN TEST YES; ARTERIAL BLOOD GAS HCO3 33.1 mmol/L (21-28); ARTERIAL BLOOD GAS HEMOGLOBIN 9.3 g/dL (11.7-17.4); ARTERIAL BLOOD GAS O2 CONTENT 12.9 ML/dL (15-23); ARTERIAL BLOOD GAS O2 SAT 99.6 % (95-98); ARTERIAL BLOOD GAS PCO2 56 mm/Hg (35-45); ARTERIAL BLOOD GAS PH 7.42 (7.35-7.45); ARTERIAL BLOOD GAS PO2 99 mm/Hg (80-100)
[2018-11-27 05:57] LABS: BLOOD UREA NITROGEN 15 mg/dl (7-17); CALCIUM 8.5 mg/dL (8.4-10.2); GFR NON-AFRICAN AMERICAN > 60
[2018-11-27] MEDS: Insulin Regular 100 units/ml SC SCH ×4 (07:00→23:31)
[2018-11-27] MEDS: Propofol 10 mg/ml 1,000 MG/100 ML VIAL IV SCH ×3 (07:01→23:30)
[2018-11-27] MEDS: Enoxaparin 40 mg Syringe SC SCH (08:20)
--- NOTE | 2018-11-27 08:21 | CP.PCM.PN ---
<Elmira Russ - Last Filed: 11/27/18 10:54> Subjective - Date & Time of Evaluation Date of Evaluation: 11/27/18 Time of Evaluation: 08:20 - Subjective Subjective: No acute overnight events. Pt seen and examined by bedside this AM Pt remains intubated and sedated Responds to physical stimuli Objective - Vital Signs/Intake and Output Vital Signs (last 24 hours): Temp Pulse Resp BP Pulse Ox 99.9 F H 97 H 12 104/51 L 100 11/27/18 04:00 11/27/18 07:00 11/27/18 07:00 11/27/18 07:00 11/27/18 07:00 Intake and Output: 11/27/18 11/27/18 06:59 18:59 Intake Total 1140 100 Output Total 1100 Balance 40 100 - Medications Medications: Current Medications Acetaminophen (Tylenol 650mg/20.3ml Solution Ud) 650 mg GT Q6 PRN PRN Reason: temp of > 100.4 F Last Admin: 11/24/18 17:57 Dose: 650 mg Acetaminophen (Tylenol 650mg/20.3ml Solution Ud) 650 mg NG Q4 PRN PRN Reason: fever 100.4 or above Albuterol/Ipratropium (Duoneb 3 Mg/0.5 Mg (3 Ml) Ud) 3 ml INH RQ4 [facility] Last Admin: 11/27/18 07:34 Dose: 3 ml Enoxaparin Sodium (Lovenox) 40 mg SC DAILY [facility]; Protocol Last Admin: 11/26/18 08:47 Dose: 40 mg Famotidine (Pepcid) 20 mg IVP Q12 [facility] Last Admin: 11/26/18 22:00 Dose: 20 mg Furosemide (Lasix) 40 mg IV BID [facility] Stop: 11/28/18 17:01 Last Admin: 11/26/18 16:16 Dose: 40 mg Vancomycin HCl 1 gm/ Sodium (Chloride) 250 mls @ 166.667 mls/hr IVPB Q12 [facility]; Protocol Last Admin: 11/26/18 21:30 Dose: 166.667 mls/hr Piperacillin Sod/Tazobactam (Sod 3.375 gm/ Sodium Chloride) 100 mls @ 100 mls/hr IVPB Q6 [facility]; Protocol Last Admin: 11/27/18 04:30 Dose: 100 mls/hr Propofol (Diprivan) 1,000 mg in 100 mls @ 3.1 mls/hr IV .Q24H [facility]; Protocol Stop: 11/27/18 17:35 Last Admin: 11/27/18 07:01 Dose: 20 mcg/kg/min, 12.399 mls/hr Insulin Detemir (Levemir) 10 units SC [facility] Last Admin: 11/26/18 23:00 Dose: 10 u Insulin Human Regular (Humulin R) 0 units SC ACCU-CHECK [facility]; Protocol Last Admin: 11/27/18 07:00 Dose: Not Given Losartan Potassium (Cozaar) 25 mg PO DAILY [facility] Last Admin: 11/26/18 08:45 Dose: 25 mg Spironolactone (Aldactone) 12.5 mg PO DAILY [facility] - Labs Labs: 11/27/18 05:00 11/27/18 05:00 - Constitutional Appears: No Acute Distress, Other (intubated and sedated ) - Head Exam Head Exam: NORMAL INSPECTION - Respiratory Exam Respiratory Exam: Decreased Breath Sounds (in the lower lobes b/l ), NORMAL JONATAN THING PATTERN (course breathing sounds ) - Cardiovascular Exam Cardiovascular Exam: REGULAR RHYTHM, +S1, +S2 - GI/Abdominal Exam GI & Abdominal Exam: Distended, Soft, Normal Bowel Sounds - Extremities Exam Additional comments: b/l upper ext edema noted - Neurological Exam Additional comments: responds to physical stimuli Assessment and Plan (1) Bacteremia Status: Acute (2) Sepsis Status: Acute (3) CHF (congestive heart failure) Status: Chronic (4) Respiratory failure Status: Acute (5) Anemia Status: Chronic - Assessment and Plan (Free Text) Assessment: Assessment/Plan: 83 YO female with PMHx of HTN, CHF (w/ pacemaker), DM, hypothyroidism, admitted due to recurrent hypercapneic respiratory failure. Patient brought to ED on 11/22/18 for LATONIA due to AMS, intubated and admitted to ICU. -Recurrent hypercapneic respiratory failure s/p intubation and on MV on 11/22/18 pulmonary on board, CXR appreciated; questionable infiltrates Intubated will decrease FIO2 today, sedated on propofol Wean off when tolerating in preparation of extubation c/w with IV abx -CHF, pacemaker Cardiology on board, interrogate ICD, cath? -Bacteremia, sepsis Blood cx 11/22/18: Gram positive cocci in pairs ID on board BCx 11/24 neg c/w Vancomycin and Zosyn -DVT prophylx <Kenneth Le - Last Filed: 11/28/18 09:46> Objective - Vital Signs/Intake and Output Vital Signs (last 24 hours): Temp Pulse Resp BP Pulse Ox 99 F 66 12 100/49 L 97 11/28/18 08:00 11/28/18 08:00 11/28/18 08:00 11/28/18 08:27 11/28/18 08:00 Intake and Output: 11/28/18 11/28/18 06:59 18:59 Intake Total 1040 205 Output Total 1050 Balance -10 205 - Medications Medications: Current Medications Acetaminophen (Tylenol 650mg/20.3ml Solution Ud) 650 mg GT Q6 PRN PRN Reason: temp of > 100.4 F Last Admin: 11/24/18 17:57 Dose: 650 mg Acetaminophen (Tylenol 650mg/20.3ml Solution Ud) 650 mg NG Q4 PRN PRN Reason: fever 100.4 or above Albuterol/Ipratropium (Duoneb 3 Mg/0.5 Mg (3 Ml) Ud) 3 ml INH RQ4 [facility] Last Admin: 11/28/18 07:28 Dose: 3 ml Enoxaparin Sodium (Lovenox) 40 mg SC DAILY [facility]; Protocol Last Admin: 11/28/18 08:28 Dose: 40 mg Famotidine (Pepcid) 20 mg IVP Q12 [facility] Last Admin: 11/27/18 20:22 Dose: 20 mg Furosemide (Lasix) 40 mg IV BID [facility] Stop: 11/28/18 17:01 Last Admin: 11/28/18 08:27 Dose: 40 mg Vancomycin HCl 1 gm/ Sodium (Chloride) 250 mls @ 166.667 mls/hr IVPB Q12 [facility]; Protocol Last Admin: 11/28/18 08:28 Dose: 166.667 mls/hr Piperacillin Sod/Tazobactam (Sod 3.375 gm/ Sodium Chloride) 100 mls @ 100 mls/hr IVPB Q6 [facility]; Protocol Last Admin: 11/28/18 04:30 Dose: 100 mls/hr Propofol (Diprivan) 1,000 mg in 100 mls @ 12.111 mls/hr IV .Q8H16M [facility]; Protocol Stop: 11/28/18 23:21 Last Admin: 11/28/18 07:10 Dose: 20 mcg/kg/min, 12.111 mls/hr Insulin Detemir (Levemir) 10 units SC [facility] Last Admin: 11/27/18 22:19 Dose: 10 u Insulin Human Regular (Humulin R) 0 units SC ACCU-CHECK [facility]; Protocol Last Admin: 11/28/18 06:34 Dose: Not Given Losartan Potassium (Cozaar) 25 mg PO DAILY [facility] Last Admin: 11/27/18 08:20 Dose: 25 mg Spironolactone (Aldactone) 12.5 mg PO DAILY [facility] - Labs Labs: 11/28/18 05:30 11/28/18 05:30 Attending/Attestation - Attestation I have personally seen and examined this patient.: Yes I have fully participated in the care of the patient.: Yes I have reviewed all pertinent clinical information, including history, physical exam and plan: Yes
--- NOTE | 2018-11-27 10:22 | RAD ---
Date of service: 11/27/2018 HISTORY: intuabted COMPARISON: No prior. FINDINGS: LUNGS: No active pulmonary disease. PLEURA: Probable small bilateral pleural effusion. No pneumothorax. Likely pleural fluid in minor fissure. CARDIOVASCULAR: No aortic atherosclerotic calcification present. Normal cardiac size. No congestive change. ET tube positioned approximately 7 cm above the tracheal mamadou. Nasogastric tube identified. Due to underpenetration, the distal tip of the nasogastric tube cannot be well visualized on this examination and positioning of the nasogastric tube cannot be assessed. AICD noted. OSSEOUS STRUCTURES: No significant abnormalities. VISUALIZED UPPER ABDOMEN: Normal. OTHER FINDINGS: None. IMPRESSION: Small bilateral pleural effusion. No infiltrate. ETT positioned well above the tracheal mamadou. NG tube position cannot be adequately assessed. AICD noted.
--- NOTE | 2018-11-27 10:55 | CP.PCM.PN ---
<Pierce Yo - Last Filed: 11/27/18 11:39> Subjective - Date & Time of Evaluation Date of Evaluation: 11/27/18 Time of Evaluation: 11:40 - Subjective Subjective: Pierce Yo DO PGY1 - Internal Medicine Yard Specialist - Cardiology Note for Dr. Kim Seen and examined at bedside this morning. No acute events reported overnight. Vital signs reviewed, patient afebrile maintaining MAP above 65, 02 saturation 100% on 50% FiO2. Objective - Vital Signs/Intake and Output Vital Signs (last 24 hours): Temp Pulse Resp BP Pulse Ox 99.7 F H 97 H 12 102/54 L 100 11/27/18 09:00 11/27/18 09:00 11/27/18 09:00 11/27/18 09:00 11/27/18 09:00 Intake and Output: 11/27/18 11/27/18 06:59 18:59 Intake Total 1140 194 Output Total 1100 Balance 40 194 - Medications Medications: Current Medications Acetaminophen (Tylenol 650mg/20.3ml Solution Ud) 650 mg GT Q6 PRN PRN Reason: temp of > 100.4 F Last Admin: 11/24/18 17:57 Dose: 650 mg Acetaminophen (Tylenol 650mg/20.3ml Solution Ud) 650 mg NG Q4 PRN PRN Reason: fever 100.4 or above Albuterol/Ipratropium (Duoneb 3 Mg/0.5 Mg (3 Ml) Ud) 3 ml INH RQ4 [facility] Last Admin: 11/27/18 07:34 Dose: 3 ml Enoxaparin Sodium (Lovenox) 40 mg SC DAILY [facility]; Protocol Last Admin: 11/27/18 08:20 Dose: 40 mg Famotidine (Pepcid) 20 mg IVP Q12 [facility] Last Admin: 11/27/18 08:19 Dose: 20 mg Furosemide (Lasix) 40 mg IV BID [facility] Stop: 11/28/18 17:01 Last Admin: 11/27/18 08:24 Dose: 40 mg Vancomycin HCl 1 gm/ Sodium (Chloride) 250 mls @ 166.667 mls/hr IVPB Q12 [facility]; Protocol Last Admin: 11/27/18 08:21 Dose: 166.667 mls/hr Piperacillin Sod/Tazobactam (Sod 3.375 gm/ Sodium Chloride) 100 mls @ 100 mls/hr IVPB Q6 [facility]; Protocol Last Admin: 11/27/18 10:06 Dose: 100 mls/hr Propofol (Diprivan) 1,000 mg in 100 mls @ 3.1 mls/hr IV .Q24H [facility]; Protocol Stop: 11/27/18 17:35 Last Admin: 11/27/18 07:01 Dose: 20 mcg/kg/min, 12.399 mls/hr Insulin Detemir (Levemir) 10 units SC HS [facility] Last Admin: 11/26/18 23:00 Dose: 10 u Insulin Human Regular (Humulin R) 0 units SC ACCU-CHECK [facility]; Protocol Last Admin: 11/27/18 07:00 Dose: Not Given Losartan Potassium (Cozaar) 25 mg PO DAILY [facility] Last Admin: 11/27/18 08:20 Dose: 25 mg Spironolactone (Aldactone) 12.5 mg PO DAILY [facility] - Labs Labs: 11/27/18 05:00 11/27/18 05:00 Physical Exam - Constitutional Additional comments: Intubated/ Sedated - Eye Exam Eye Exam: absent: Scleral icterus - ENT Exam Additional comments: ET tube in place - Neck Exam Additional comments: no JVD - Respiratory Exam Respiratory Exam: Decreased Breath Sounds. absent: Wheezes - Cardiovascular Exam Cardiovascular Exam: RRR (Heart sounds distant), +S1, +S2 - GI/Abdominal Exam GI & Abdominal Exam: Normal Bowel Sounds, Soft. absent: Tenderness - Neurological Exam Additional comments: Sedated - Psychiatric Exam Psychiatric exam: Normal Affect Assessment and Plan - Assessment and Plan (Free Text) Assessment: Patient continues to remain hemodynamically stable No signs of worsening or new onset cardiomyopathy at this time Continue monitoring Maintain MAP >65 <Douglas Kim - Last Filed: 11/30/18 17:37> Objective - Vital Signs/Intake and Output Vital Signs (last 24 hours): Temp Pulse Resp BP Pulse Ox 99.1 F 94 H 14 117/66 98 11/30/18 16:00 11/30/18 17:00 11/30/18 17:00 11/30/18 17:00 11/30/18 17:00 Intake and Output: 11/30/18 11/30/18 06:59 18:59 Intake Total 1400 1136 Output Total 550 Balance 850 1136 - Medications Medications: Current Medications Acetaminophen (Tylenol 650mg/20.3ml Solution Ud) 650 mg GT Q6 PRN PRN Reason: temp of > 100.4 F Last Admin: 11/24/18 17:57 Dose: 650 mg Acetaminophen (Tylenol 650mg/20.3ml Solution Ud) 650 mg NG Q4 PRN PRN Reason: fever 100.4 or above Albuterol/Ipratropium (Duoneb 3 Mg/0.5 Mg (3 Ml) Ud) 3 ml INH RQ4 [facility] Last Admin: 11/30/18 15:21 Dose: 3 ml Enoxaparin Sodium (Lovenox) 40 mg SC DAILY [facility]; Protocol Last Admin: 11/30/18 09:09 Dose: 40 mg Vancomycin HCl 1 gm/ Sodium (Chloride) 250 mls @ 166.667 mls/hr IVPB Q12 [facility]; Protocol Last Admin: 11/30/18 09:11 Dose: Not Given Piperacillin Sod/Tazobactam (Sod 3.375 gm/ Sodium Chloride) 100 mls @ 100 mls/hr IVPB Q6 [facility]; Protocol Last Admin: 11/30/18 16:00 Dose: 100 mls/hr Propofol (Diprivan) 1,000 mg in 100 mls @ 12.481 mls/hr IV .Q8H1M [facility]; Protocol Stop: 12/01/18 14:45 Last Admin: 11/30/18 15:01 Dose: 20 mcg/kg/min, 12.481 mls/hr Insulin Detemir (Levemir) 10 units SC HS [facility] Last Admin: 11/29/18 23:28 Dose: 10 u Insulin Human Regular (Humulin R) 0 units SC ACCU-CHECK [facility]; Protocol Last Admin: 11/30/18 17:12 Dose: Not Given Losartan Potassium (Cozaar) 25 mg PO DAILY [facility] Last Admin: 11/30/18 09:08 Dose: 25 mg Spironolactone (Aldactone) 12.5 mg PO DAILY [facility] - Labs Labs: 11/30/18 04:30 11/30/18 04:30 Attending/Attestation - Attestation I have personally seen and examined this patient.: Yes I have fully participated in the care of the patient.: Yes I have reviewed all pertinent clinical information, including history, physical exam and plan: Yes
--- NOTE | 2018-11-27 11:01 | CP.PCM.PN ---
Subjective - Date & Time of Evaluation Date of Evaluation: 11/27/18 Time of Evaluation: 11:03 - Subjective Subjective: STILL INTUBATED AND BEING VENTILATED SEDATED ON DIPRIVAN Objective - Vital Signs/Intake and Output Vital Signs (last 24 hours): Temp Pulse Resp BP Pulse Ox 99.7 F H 97 H 12 102/54 L 100 11/27/18 09:00 11/27/18 09:00 11/27/18 09:00 11/27/18 09:00 11/27/18 09:00 Intake and Output: 11/27/18 11/27/18 06:59 18:59 Intake Total 1140 194 Output Total 1100 Balance 40 194 - Medications Medications: Current Medications Acetaminophen (Tylenol 650mg/20.3ml Solution Ud) 650 mg GT Q6 PRN PRN Reason: temp of > 100.4 F Last Admin: 11/24/18 17:57 Dose: 650 mg Acetaminophen (Tylenol 650mg/20.3ml Solution Ud) 650 mg NG Q4 PRN PRN Reason: fever 100.4 or above Albuterol/Ipratropium (Duoneb 3 Mg/0.5 Mg (3 Ml) Ud) 3 ml INH RQ4 [facility] Last Admin: 11/27/18 07:34 Dose: 3 ml Enoxaparin Sodium (Lovenox) 40 mg SC DAILY [facility]; Protocol Last Admin: 11/27/18 08:20 Dose: 40 mg Famotidine (Pepcid) 20 mg IVP Q12 [facility] Last Admin: 11/27/18 08:19 Dose: 20 mg Furosemide (Lasix) 40 mg IV BID [facility] Stop: 11/28/18 17:01 Last Admin: 11/27/18 08:24 Dose: 40 mg Vancomycin HCl 1 gm/ Sodium (Chloride) 250 mls @ 166.667 mls/hr IVPB Q12 [facility]; Protocol Last Admin: 11/27/18 08:21 Dose: 166.667 mls/hr Piperacillin Sod/Tazobactam (Sod 3.375 gm/ Sodium Chloride) 100 mls @ 100 mls/ hr IVPB Q6 [facility]; Protocol Last Admin: 11/27/18 10:06 Dose: 100 mls/hr Propofol (Diprivan) 1,000 mg in 100 mls @ 3.1 mls/hr IV .Q24H [facility]; Protocol Stop: 11/27/18 17:35 Last Admin: 11/27/18 07:01 Dose: 20 mcg/kg/min, 12.399 mls/hr Insulin Detemir (Levemir) 10 units SC [facility] Last Admin: 11/26/18 23:00 Dose: 10 u Insulin Human Regular (Humulin R) 0 units SC ACCU-CHECK [facility]; Protocol Last Admin: 11/27/18 07:00 Dose: Not Given Losartan Potassium (Cozaar) 25 mg PO DAILY [facility] Last Admin: 11/27/18 08:20 Dose: 25 mg Spironolactone (Aldactone) 12.5 mg PO DAILY [facility] - Labs Labs: 11/27/18 05:00 11/27/18 05:00 - Constitutional Appears: Chronically Ill - Head Exam Head Exam: ATRAUMATIC, NORMAL INSPECTION, NORMOCEPHALIC - Eye Exam Eye Exam: EOMI, Normal appearance, PERRL Pupil Exam: NORMAL ACCOMODATION, PERRL - ENT Exam ENT Exam: Mucous Membranes Moist, Normal Exam Additional comments: ETT IN PLACE - Neck Exam Neck Exam: Full ROM, Normal Inspection. absent: Lymphadenopathy - Respiratory Exam Respiratory Exam: Rales Additional comments: ON THE VENT - Cardiovascular Exam Cardiovascular Exam: REGULAR RHYTHM, +S1, +S2. absent: Murmur - GI/Abdominal Exam GI & Abdominal Exam: Soft, Normal Bowel Sounds. absent: Tenderness - Rectal Exam Rectal Exam: NORMAL INSPECTION - Extremities Exam Extremities Exam: Full ROM, Normal Capillary Refill, Normal Inspection. absent: Joint Swelling, Pedal Edema - Back Exam Back Exam: NORMAL INSPECTION - Skin Skin Exam: Dry, Intact, Normal Color, Warm Assessment and Plan - Assessment and Plan (Free Text) Assessment: ACUTE HYPERCAPNEIC RESPIRATORY FAILURE COPD EXAC SEPSIS CHF Plan: CONTINUE RX ORDERED PROGNOSIS IS EXTREMELY GUARDED
--- NOTE | 2018-11-27 11:27 | CP.CCUPN ---
CCU Subjective - Physician Review Subjective (Free Text): Sedated on moderate dose Propofol, RASS at neg 4, breathing 12-15 on AC 12, TV 400ml, 50% oxygen, PEEP 5. Afebrile, no fever spikes overnight, Tmax 100.2F overnight, SBP 100s; HR 70s paced, fluid balance positive 2.8L. Urine output approx. 1400ml overnight. ROS: No other pertinent negs or positives on 10+ system review due to sedation. PMSFH: All other Nursing and physician documentation reviewed to date; no new pertinent info noted relevant to current medical problems. EXAM- HEENT: no icterus, no gaze preference NECK: No JVD visible given short neck and overall obesity, supple, carotids equal upstroke bilat/no bruit CHEST: decreased BS at the bases, no wheezes audible bilaterally. HEART: regular, distant, S1S2, no rubs or murmurs noted ABD: soft, obese, nontender, no guarding, no organomegaly, BS hypoactive. EXT: trace to +1 leg edema- SCDs on bilat, no calf tenderness or palpable cords, distal pulses intact and symmetrical. RUE single lumen PICC. NEURO: withdraws to pain, + tone in all extremities. SKIN: no rashes, warm and dry LABS: WBC= 3.9 HGB= 9.3 PLTs= 161K Na= 142 K= 3.7 CL= 102 HCO3= 36 BUN/Cr= 15/0.7 BS= 117 CXR: (my interp)- RML, LLL interstitial changes, Left hemidiaphragm not visible. ETT tip position ok above mamadou. Poor lung expansion. IMPRESSION / MAJOR PROBLEMS NOW: 1. Acute Hypercapneic Resp Failure, 2 bilat Pneumonia / COPD Exacerbation 2. Metabolic Encephalopathy with AMS 2 #1 3. h/o CHF 4. h/o DM II PLAN: 1. Ongoing diuresis with Lasix, BUN Cr appears stable and tolerating. 2. Continue Vanco: Coag neg Staph in 1 BC bottle, subsequent cultures have been negative. 3. Try decreasing FiO2 to 45% as tolerated, PO2 on ABG slightly better today. SBTs as tolerated: CPAP 5 PS 12,breathing at 23/min so far. 4. ECHO from Oct 2018 reviewed. Critical Care Progress Note - Nutrition Nutrition: Nutrition Category Date Time Status NPO Diet [DIET] Diets 11/23/18 Dinner Active
--- NOTE | 2018-11-27 14:37 | CP.PCM.PN ---
Subjective - Date & Time of Evaluation Date of Evaluation: 11/27/18 Time of Evaluation: 07:00 - Subjective Subjective: intubated in ICU sedated low grade fever no new cultures would change lines if not done yet Objective - Vital Signs/Intake and Output Vital Signs (last 24 hours): Temp Pulse Resp BP Pulse Ox 100.0 F H 70 12 96/58 L 98 11/27/18 14:00 11/27/18 14:00 11/27/18 14:00 11/27/18 14:00 11/27/18 14:00 Intake and Output: 11/27/18 11/27/18 06:59 18:59 Intake Total 1140 1068 Output Total 1100 Balance 40 1068 - Medications Medications: Current Medications Acetaminophen (Tylenol 650mg/20.3ml Solution Ud) 650 mg GT Q6 PRN PRN Reason: temp of > 100.4 F Last Admin: 11/24/18 17:57 Dose: 650 mg Acetaminophen (Tylenol 650mg/20.3ml Solution Ud) 650 mg NG Q4 PRN PRN Reason: fever 100.4 or above Albuterol/Ipratropium (Duoneb 3 Mg/0.5 Mg (3 Ml) Ud) 3 ml INH RQ4 [facility] Last Admin: 11/27/18 11:26 Dose: 3 ml Enoxaparin Sodium (Lovenox) 40 mg SC DAILY [facility]; Protocol Last Admin: 11/27/18 08:20 Dose: 40 mg Famotidine (Pepcid) 20 mg IVP Q12 [facility] Last Admin: 11/27/18 08:19 Dose: 20 mg Furosemide (Lasix) 40 mg IV BID [facility] Stop: 11/28/18 17:01 Last Admin: 11/27/18 08:24 Dose: 40 mg Vancomycin HCl 1 gm/ Sodium (Chloride) 250 mls @ 166.667 mls/hr IVPB Q12 [facility]; Protocol Last Admin: 11/27/18 08:21 Dose: 166.667 mls/hr Piperacillin Sod/Tazobactam (Sod 3.375 gm/ Sodium Chloride) 100 mls @ 100 mls/hr IVPB Q6 [facility]; Protocol Last Admin: 11/27/18 10:06 Dose: 100 mls/hr Propofol (Diprivan) 1,000 mg in 100 mls @ 3.1 mls/hr IV .Q24H [facility]; Protocol Stop: 11/27/18 17:35 Last Admin: 11/27/18 07:01 Dose: 20 mcg/kg/min, 12.399 mls/hr Insulin Detemir (Levemir) 10 units SC [facility] Last Admin: 11/26/18 23:00 Dose: 10 u Insulin Human Regular (Humulin R) 0 units SC ACCU-CHECK [facility]; Protocol Last Admin: 11/27/18 11:47 Dose: Not Given Losartan Potassium (Cozaar) 25 mg PO DAILY [facility] Last Admin: 11/27/18 08:20 Dose: 25 mg Spironolactone (Aldactone) 12.5 mg PO DAILY [facility] - Labs Labs: 11/27/18 05:00 11/27/18 05:00 - Constitutional Appears: Non-toxic, Confused, Chronically Ill - Head Exam Head Exam: NORMOCEPHALIC - Eye Exam Eye Exam: absent: Scleral icterus - ENT Exam ENT Exam: Mucous Membranes Dry - Neck Exam Neck Exam: absent: Thyromegaly - Respiratory Exam Respiratory Exam: Decreased Breath Sounds - Cardiovascular Exam Cardiovascular Exam: REGULAR RHYTHM - GI/Abdominal Exam GI & Abdominal Exam: Distended - Rectal Exam Rectal Exam: Deferred - Exam Exam: NORMAL INSPECTION - Extremities Exam Extremities Exam: Pedal Edema - Back Exam Back Exam: absent: CVA tenderness (L), CVA tenderness (R) - Neurological Exam Neurological Exam: Altered Assessment and Plan (1) Acute respiratory failure with hypoxia and hypercarbia Status: Acute (2) Bacteremia Status: Acute (3) Diabetes mellitus type 2 in obese Status: Acute (4) Pleural effusion Status: Acute (5) Respiratory failure Status: Acute - Assessment and Plan (Free Text) Assessment: no new positive cultures Plan: cont empiric rx for HCAP prognosis guarded
[2018-11-27] MEDS: Insulin Detemir 100 Units/ml Inj SC SCH (22:19)
[2018-11-28] MEDS: Piperacillin/Tazobact 3.375 GM in Sodium Chloride 0.9% 100 ML IVPB SCH ×4 (04:30→21:11)
[2018-11-28] MEDS: Albuterol-Ipratrop 3 mg / 0.5 (3 ml) UD INH SCH ×6 (04:45→23:06)
[2018-11-28 05:51] LABS: ABG ALLEN TEST YES; ARTERIAL BLOOD GAS HEMOGLOBIN 9.4 g/dL (11.7-17.4); ARTERIAL BLOOD GAS O2 CAPACITY 12.9 mL/dL (16-24); ARTERIAL BLOOD GAS O2 CONTENT 12.8 ML/dL (15-23); ARTERIAL BLOOD GAS PCO2 53 mm/Hg (35-45); ARTERIAL BLOOD GAS PH 7.48 (7.35-7.45); ARTERIAL BLOOD GAS PO2 85 mm/Hg (80-100); ARTERIAL BLOOD GAS TCO2 41.1 mmol/L (22-28)
[2018-11-28 06:31] LABS: BASO % 0.1 % (0.0-2.0); EOS # 0.3 K/uL (0.0-0.7); EOS % 8.7 % (0.0-4.0); LYMPH # 0.9 K/uL (1.0-4.3); MEAN CELL VOLUME 85.3 fl (81.0-99.0); MEAN CORPUSCULAR HEMOGLOBIN 26.5 pg (27.0-31.0); MEAN CORPUSCULAR HGB CONC 31.1 g/dL (33.0-37.0); MEAN PLATELET VOLUME 9.8 fl (7.2-11.7); MONO # 0.5 K/uL (0.0-0.8); MONO % 12.5 % (0.0-10.0); NEUT # 2.1 K/uL (1.8-7.0); NEUT % 55.7 % (50.0-75.0); NRBC % 0.1 % (0.0-0.0); RBC 3.4 Mil/uL (3.80-5.20); RED CELL DISTRIBUTION WIDTH 21.5 % (11.5-14.5); WHITE BLOOD COUNT 3.7 K/uL (4.8-10.8)
[2018-11-28] MEDS: Insulin Regular 100 units/ml SC SCH ×4 (06:34→22:46)
[2018-11-28] MEDS: Propofol 10 mg/ml 1,000 MG/100 ML VIAL IV SCH ×3 (07:10→22:59)
[2018-11-28 08:20] LABS: BLOOD UREA NITROGEN 16 mg/dl (7-17); CALCIUM 8.6 mg/dL (8.4-10.2); GFR NON-AFRICAN AMERICAN > 60
[2018-11-28] MEDS: Enoxaparin 40 mg Syringe SC SCH (08:28)
--- NOTE | 2018-11-28 08:47 | CP.CCUPN ---
CCU Subjective - Physician Review Events Since Last Encounter (Free Text): Patient on ventilator, on PRVC TV 400, RR 12, FIO2 50%, no pressors, sedated, no fever, events reviewed CCU Objective - Vital Signs / Intake & Output Vital Signs (Last 4 hours): Vital Signs Temp Pulse Resp BP Pulse Ox 11/28/18 08:27 100/49 L 11/28/18 08:00 99 F 66 12 100/49 L 97 11/28/18 07:14 73 13 91/58 L 95 11/28/18 06:00 82 14 94/52 L 97 11/28/18 05:00 76 12 98/45 L 95 Intake and Output (Last 8hrs): Intake & Output 11/27/18 11/28/18 11/28/18 22:59 06:59 14:59 Intake Total 536 720 205 Output Total 2150 1050 Balance -1614 -330 205 Weight 219 lb Intake: IV 56 125 Tube Feeding 280 320 80 Free Water Flush 200 400 Output: Urine 2150 1050 Urethral (Arias) 2150 1050 - Physical Exam Head: Positive for: Atraumatic, Normocephalic Pupils: Positive for: PERRL Conjunctiva: Positive for: Normal Mouth: Positive for: Moist Mucous Membranes Nose (External): Positive for: Atraumatic Neck: Positive for: Normal Range of Motion Respiratory/Chest: Positive for: Rhonchi Cardiovascular: Positive for: Regular Rate and Rhythm Abdomen: Positive for: Normal Bowel Sounds Upper Extremity: Positive for: Normal Inspection Lower Extremity: Positive for: Normal Inspection Neurological: Positive for: Other (on ventilator, sedated) - Medications Active Medications: Active Medications Generic Name Dose Route Start Last Admin Trade Name Freq PRN Reason Stop Dose Admin Acetaminophen 650 mg 11/23/18 01:23 11/24/18 17:57 Tylenol 650mg/20.3ml Solution Ud GT 650 mg Q6 PRN Administration temp of > 100.4 F Acetaminophen 650 mg 11/24/18 17:44 Tylenol 650mg/20.3ml Solution Ud NG Q4 PRN fever 100.4 or above Albuterol/Ipratropium 3 ml 11/25/18 16:00 11/28/18 07:28 Duoneb 3 Mg/0.5 Mg (3 Ml) Ud INH 3 ml RQ4 JEANA Administration Enoxaparin Sodium 40 mg 11/23/18 09:00 11/28/18 08:28 Lovenox SC 40 mg DAILY JEANA Administration Protocol Famotidine 20 mg 11/23/18 09:00 11/27/18 20:22 Pepcid IVP 20 mg Q12 JEANA Administration Furosemide 40 mg 11/26/18 17:00 11/28/18 08:27 Lasix IV 11/28/18 17:01 40 mg BID JEANA Administration Vancomycin HCl 1 gm/ Sodium 250 mls @ 166.667 mls/hr 11/23/18 09:00 11/28/18 08:28 Chloride IVPB 166.667 mls/hr Q12 JEANA Administration Protocol Piperacillin Sod/Tazobactam 100 mls @ 100 mls/hr 11/23/18 10:00 11/28/18 04:30 Sod 3.375 gm/ Sodium Chloride IVPB 100 mls/hr Q6 JEANA Administration Protocol Propofol 1,000 mg in 100 mls @ 12.111 mls/hr 11/27/18 23:30 11/28/18 07:10 Diprivan IV 11/28/18 23:21 20 mcg/kg/min .Q8H16M JEANA 12.111 mls/hr Administration Protocol 20 MCG/KG/MIN Insulin Detemir 10 units 11/22/18 22:00 11/27/18 22:19 Levemir SC 10 u HS JEANA Administration Insulin Human Regular 0 units 11/23/18 12:00 11/28/18 06:34 Humulin R SC Not Given ACCU-CHECK [facility] Protocol Losartan Potassium 25 mg 11/23/18 09:00 11/27/18 08:20 Cozaar PO 25 mg DAILY JEANA Administration Spironolactone 12.5 mg 11/23/18 09:00 Aldactone PO DAILY JEANA - Patient Studies Lab Studies: Microbiology Studies 11/24/18 14:53 Blood Culture - Preliminary Blood-Thru Central Line NO GROWTH AFTER 3 DAYS 11/24/18 14:43 Blood Culture - Preliminary Blood-Venous NO GROWTH AFTER 3 DAYS Lab Studies 11/28/18 11/28/18 11/28/18 Range/Units 05:46 05:30 05:30 WBC 3.7 L (4.8-10.8) K/uL RBC 3.40 L (3.80-5.20) Mil/uL Hgb 9.0 L (12.0-16.0) g/dL Hct 29.0 L (34.0-47.0) % MCV 85.3 D (81.0-99.0) fl MCH 26.5 L (27.0-31.0) pg MCHC 31.1 L (33.0-37.0) g/dL RDW 21.5 H (11.5-14.5) % Plt Count 169 (130-400) K/uL MPV 9.8 (7.2-11.7) fl Neut % (Auto) 55.7 (50.0-75.0) % Lymph % (Auto) 23.0 (20.0-40.0) % [place] % (Auto) 12.5 H (0.0-10.0) % Eos % (Auto) 8.7 H (0.0-4.0) % Baso % (Auto) 0.1 (0.0-2.0) % Neut # (Auto) 2.1 (1.8-7.0) K/uL Lymph # (Auto) 0.9 L (1.0-4.3) K/uL [place] # (Auto) 0.5 (0.0-0.8) K/uL Eos # (Auto) 0.3 (0.0-0.7) K/uL Baso # (Auto) 0.0 (0.0-0.2) K/uL pCO2 (35-45) mm/Hg pO2 (80-100) mm/Hg HCO3 (21-28) mmol/L ABG pH (7.35-7.45) ABG Total CO2 (22-28) mmol/L ABG O2 Saturation (95-98) % ABG O2 Content (15-23) ML/dL ABG Base Excess (-2.0-3.0) mmol/L ABG Hemoglobin (11.7-17.4) g/dL ABG Carboxyhemoglobin (0.5-1.5) % POC ABG HHb (Measured) (0.0-5.0) % ABG Methemoglobin (0.0-3.0) % ABG O2 Capacity (16-24) mL/dL Favian Test A-a O2 Difference mm/Hg Hgb O2 Saturation (95.0-98.0) % Vent Mode Mechanical Rate FiO2 % Tidal Volume PEEP Sodium 142 (132-148) mmol/l Potassium 3.0 L (3.6-5.0) MMOL/L Chloride 94 L (98-107) mmol/L Carbon Dioxide 39 H (22-30) mmol/L Anion Gap 12 (10-20) BUN 16 (7-17) mg/dl Creatinine 0.7 (0.7-1.2) mg/dl Est GFR ( Amer) > 60 Est GFR (Non-Af Amer) > 60 POC Glucose (mg/dL) 114 H (65-110) mg/dL Random Glucose 101 (65-105) mg/dL Calcium 8.6 (8.4-10.2) mg/dL Procalcitonin (0.19-0.49) NG/ML 11/28/18 11/27/18 11/27/18 Range/Units 05:14 21:20 16:46 WBC (4.8-10.8) K/uL RBC (3.80-5.20) Mil/uL Hgb (12.0-16.0) g/dL Hct (34.0-47.0) % MCV (81.0-99.0) fl MCH (27.0-31.0) pg MCHC (33.0-37.0) g/dL RDW (11.5-14.5) % Plt Count (130-400) K/uL MPV (7.2-11.7) fl Neut % (Auto) (50.0-75.0) % Lymph % (Auto) (20.0-40.0) % [place] % (Auto) (0.0-10.0) % Eos % (Auto) (0.0-4.0) % Baso % (Auto) (0.0-2.0) % Neut # (Auto) (1.8-7.0) K/uL Lymph # (Auto) (1.0-4.3) K/uL [place] # (Auto) (0.0-0.8) K/uL Eos # (Auto) (0.0-0.7) K/uL Baso # (Auto) (0.0-0.2) K/uL pCO2 53 H (35-45) mm/Hg pO2 85 (80-100) mm/Hg HCO3 36.0 H (21-28) mmol/L ABG pH 7.48 H (7.35-7.45) ABG Total CO2 41.1 H (22-28) mmol/L ABG O2 Saturation 99.0 H (95-98) % ABG O2 Content 12.8 L (15-23) ML/dL ABG Base Excess 14.2 H (-2.0-3.0) mmol/L ABG Hemoglobin 9.4 L (11.7-17.4) g/dL ABG Carboxyhemoglobin 1.8 H (0.5-1.5) % POC ABG HHb (Measured) 1.0 (0.0-5.0) % ABG Methemoglobin 0.9 (0.0-3.0) % ABG O2 Capacity 12.9 L (16-24) mL/dL Favian Test Yes A-a O2 Difference 205.0 mm/Hg Hgb O2 Saturation 96.3 (95.0-98.0) % Vent Mode A/c Mechanical Rate 12 FiO2 50.0 % Tidal Volume 400 PEEP 5 Sodium (132-148) mmol/l Potassium (3.6-5.0) MMOL/L Chloride (98-107) mmol/L Carbon Dioxide (22-30) mmol/L Anion Gap (10-20) BUN (7-17) mg/dl Creatinine (0.7-1.2) mg/dl Est GFR ( Amer) Est GFR (Non-Af Amer) POC Glucose (mg/dL) 104 108 (65-110) mg/dL Random Glucose (65-105) mg/dL Calcium (8.4-10.2) mg/dL Procalcitonin (0.19-0.49) NG/ML 11/27/18 11/26/18 Range/Units 11:04 21:00 WBC (4.8-10.8) K/uL RBC (3.80-5.20) Mil/uL Hgb (12.0-16.0) g/dL Hct (34.0-47.0) % MCV (81.0-99.0) fl MCH (27.0-31.0) pg MCHC (33.0-37.0) g/dL RDW (11.5-14.5) % Plt Count (130-400) K/uL MPV (7.2-11.7) fl Neut % (Auto) (50.0-75.0) % Lymph % (Auto) (20.0-40.0) % [place] % (Auto) (0.0-10.0) % Eos % (Auto) (0.0-4.0) % Baso % (Auto) (0.0-2.0) % Neut # (Auto) (1.8-7.0) K/uL Lymph # (Auto) (1.0-4.3) K/uL [place] # (Auto) (0.0-0.8) K/uL Eos # (Auto) (0.0-0.7) K/uL Baso # (Auto) (0.0-0.2) K/uL pCO2 (35-45) mm/Hg pO2 (80-100) mm/Hg HCO3 (21-28) mmol/L ABG pH (7.35-7.45) ABG Total CO2 (22-28) mmol/L ABG O2 Saturation (95-98) % ABG O2 Content (15-23) ML/dL ABG Base Excess (-2.0-3.0) mmol/L ABG Hemoglobin (11.7-17.4) g/dL ABG Carboxyhemoglobin (0.5-1.5) % POC ABG HHb (Measured) (0.0-5.0) % ABG Methemoglobin (0.0-3.0) % ABG O2 Capacity (16-24) mL/dL Favian Test A-a O2 Difference mm/Hg Hgb O2 Saturation (95.0-98.0) % Vent Mode Mechanical Rate FiO2 % Tidal Volume PEEP Sodium (132-148) mmol/l Potassium (3.6-5.0) MMOL/L Chloride (98-107) mmol/L Carbon Dioxide (22-30) mmol/L Anion Gap (10-20) BUN (7-17) mg/dl Creatinine (0.7-1.2) mg/dl Est GFR ( Amer) Est GFR (Non-Af Amer) POC Glucose (mg/dL) 112 H (65-110) mg/dL Random Glucose (65-105) mg/dL Calcium (8.4-10.2) mg/dL Procalcitonin < 0.05 L (0.19-0.49) NG/ML Laboratory Results - last 24 hr 11/26/18 11/27/18 11/27/18 21:00 11:04 16:46 WBC RBC Hgb Hct MCV MCH MCHC RDW Plt Count MPV Neut % (Auto) Lymph % (Auto) [place] % (Auto) Eos % (Auto) Baso % (Auto) Neut # (Auto) Lymph # (Auto) [place] # (Auto) Eos # (Auto) Baso # (Auto) pCO2 pO2 HCO3 ABG pH ABG Total CO2 ABG O2 Saturation ABG O2 Content ABG Base Excess ABG Hemoglobin ABG Carboxyhemoglobin POC ABG HHb (Measured) ABG Methemoglobin ABG O2 Capacity Favian Test A-a O2 Difference Hgb O2 Saturation Vent Mode Mechanical Rate FiO2 Tidal Volume PEEP Sodium Potassium Chloride Carbon Dioxide Anion Gap BUN Creatinine Est GFR ( Amer) Est GFR (Non-Af Amer) POC Glucose (mg/dL) 112 H 108 Random Glucose Calcium Procalcitonin < 0.05 L 11/27/18 11/28/18 11/28/18 21:20 05:14 05:30 WBC 3.7 L RBC 3.40 L Hgb 9.0 L Hct 29.0 L MCV 85.3 D MCH 26.5 L MCHC 31.1 L RDW 21.5 H Plt Count 169 MPV 9.8 Neut % (Auto) 55.7 Lymph % (Auto) 23.0 [place] % (Auto) 12.5 H Eos % (Auto) 8.7 H Baso % (Auto) 0.1 Neut # (Auto) 2.1 Lymph # (Auto) 0.9 L [place] # (Auto) 0.5 Eos # (Auto) 0.3 Baso # (Auto) 0.0 pCO2 53 H pO2 85 HCO3 36.0 H ABG pH 7.48 H ABG Total CO2 41.1 H ABG O2 Saturation 99.0 H ABG O2 Content 12.8 L ABG Base Excess 14.2 H ABG Hemoglobin 9.4 L ABG Carboxyhemoglobin 1.8 H POC ABG HHb (Measured) 1.0 ABG Methemoglobin 0.9 ABG O2 Capacity 12.9 L Favian Test Yes A-a O2 Difference 205.0 Hgb O2 Saturation 96.3 Vent Mode A/c Mechanical Rate 12 FiO2 50.0 Tidal Volume 400 PEEP 5 Sodium Potassium Chloride Carbon Dioxide Anion Gap BUN Creatinine Est GFR ( Amer) Est GFR (Non-Af Amer) POC Glucose (mg/dL) 104 Random Glucose Calcium Procalcitonin 11/28/18 11/28/18 05:30 05:46 WBC RBC Hgb Hct MCV MCH MCHC RDW Plt Count MPV Neut % (Auto) Lymph % (Auto) [place] % (Auto) Eos % (Auto) Baso % (Auto) Neut # (Auto) Lymph # (Auto) [place] # (Auto) Eos # (Auto) Baso # (Auto) pCO2 pO2 HCO3 ABG pH ABG Total CO2 ABG O2 Saturation ABG O2 Content ABG Base Excess ABG Hemoglobin ABG Carboxyhemoglobin POC ABG HHb (Measured) ABG Methemoglobin ABG O2 Capacity [place] Test A-a O2 Difference Hgb O2 Saturation Vent Mode Mechanical Rate FiO2 Tidal Volume PEEP Sodium 142 Potassium 3.0 L Chloride 94 L Carbon Dioxide 39 H Anion Gap 12 BUN 16 Creatinine 0.7 Est GFR ( Amer) > 60 Est GFR (Non-Af Amer) > 60 POC Glucose (mg/dL) 114 H Random Glucose 101 Calcium 8.6 Procalcitonin Radiology Impressions: Radiology Impressions Chest X-Ray 11/27/18 05:00 IMPRESSION: Small bilateral pleural effusion. No infiltrate. ETT positioned well above the tracheal mamadou. NG tube position cannot be adequately assessed. AICD noted. Fingerstick Blood Sugar Results: 114 Critical Care Progress Note - Nutrition Nutrition: Nutrition Category Date Time Status NPO Diet [DIET] Diets 11/23/18 Dinner Active Assessment/Plan - Assessment and Plan (Free Text) Assessment: A/P Respiratory failure, pneumonia, COPD, h/o CHF, h/o DM, metabolic encephalopathy - Ventilatory support - Pulmonary toilets - Weaning as tolerated - Continue meds - DVT prophylaxis Critical care 35 min
--- NOTE | 2018-11-28 10:47 | CP.PCM.PN ---
Subjective - Date & Time of Evaluation Date of Evaluation: 11/28/18 Time of Evaluation: 10:48 - Subjective Subjective: MORE AWAKE TODAY STILL INTUBATED AND BEING VENTILATED Objective - Vital Signs/Intake and Output Vital Signs (last 24 hours): Temp Pulse Resp BP Pulse Ox 99 F 69 12 112/65 97 11/28/18 08:00 11/28/18 10:00 11/28/18 10:00 11/28/18 10:00 11/28/18 10:00 Intake and Output: 11/28/18 11/28/18 06:59 18:59 Intake Total 1040 735 Output Total 1050 Balance -10 735 - Medications Medications: Current Medications Acetaminophen (Tylenol 650mg/20.3ml Solution Ud) 650 mg GT Q6 PRN PRN Reason: temp of > 100.4 F Last Admin: 11/24/18 17:57 Dose: 650 mg Acetaminophen (Tylenol 650mg/20.3ml Solution Ud) 650 mg NG Q4 PRN PRN Reason: fever 100.4 or above Albuterol/Ipratropium (Duoneb 3 Mg/0.5 Mg (3 Ml) Ud) 3 ml INH RQ4 JEANA Last Admin: 11/28/18 07:28 Dose: 3 ml Enoxaparin Sodium (Lovenox) 40 mg SC DAILY JEANA; Protocol Last Admin: 11/28/18 08:28 Dose: 40 mg Famotidine (Pepcid) 20 mg IVP Q12 JEANA Last Admin: 11/28/18 09:00 Dose: 20 mg Furosemide (Lasix) 40 mg IV BID JEANA Stop: 11/28/18 17:01 Last Admin: 11/28/18 08:27 Dose: 40 mg Vancomycin HCl 1 gm/ Sodium (Chloride) 250 mls @ 166.667 mls/hr IVPB Q12 JEANA; Protocol Last Admin: 11/28/18 08:28 Dose: 166.667 mls/hr Piperacillin Sod/Tazobactam (Sod 3.375 gm/ Sodium Chloride) 100 mls @ 100 mls/hr IVPB Q6 JEANA; Protocol Last Admin: 11/28/18 10:14 Dose: 100 mls/hr Propofol (Diprivan) 1,000 mg in 100 mls @ 12.111 mls/hr IV .Q8H16M JEANA; Protocol Stop: 11/28/18 23:21 Last Admin: 11/28/18 07:10 Dose: 20 mcg/kg/min, 12.111 mls/hr Potassium Chloride (Potassium Cl 10meq/50ml Sterile Water) 50 mls @ 50 mls/hr IVPB Q1 [facility] Stop: 11/28/18 14:59 Insulin Detemir (Levemir) 10 units SC [facility] Last Admin: 11/27/18 22:19 Dose: 10 u Insulin Human Regular (Humulin R) 0 units SC ACCU-CHECK [facility]; Protocol Last Admin: 11/28/18 06:34 Dose: Not Given Losartan Potassium (Cozaar) 25 mg PO DAILY [facility] Last Admin: 11/27/18 08:20 Dose: 25 mg Spironolactone (Aldactone) 12.5 mg PO DAILY [facility] - Labs Labs: 11/28/18 05:30 11/28/18 05:30 - Constitutional Appears: Chronically Ill - Head Exam Head Exam: ATRAUMATIC, NORMAL INSPECTION, NORMOCEPHALIC - Eye Exam Eye Exam: EOMI, Normal appearance, PERRL Pupil Exam: NORMAL ACCOMODATION, PERRL - ENT Exam ENT Exam: Mucous Membranes Moist, Normal Exam - Neck Exam Neck Exam: Full ROM, Normal Inspection. absent: Lymphadenopathy - Respiratory Exam Respiratory Exam: Decreased Breath Sounds, Prolonged Expiratory Phase Additional comments: ON THE VENTILATOR - Cardiovascular Exam Cardiovascular Exam: REGULAR RHYTHM, +S1, +S2. absent: Murmur - GI/Abdominal Exam GI & Abdominal Exam: Soft, Normal Bowel Sounds. absent: Tenderness - Rectal Exam Rectal Exam: NORMAL INSPECTION - Extremities Exam Extremities Exam: Full ROM, Normal Capillary Refill, Normal Inspection. absent: Joint Swelling, Pedal Edema - Back Exam Back Exam: NORMAL INSPECTION - Neurological Exam Neurological Exam: Alert, Awake - Psychiatric Exam Psychiatric exam: Normal Affect, Normal Mood - Skin Skin Exam: Dry, Intact, Normal Color, Warm Assessment and Plan - Assessment and Plan (Free Text) Assessment: HYPERCAPNEIC RESPIRATORY FAILURE Plan: CONTINUE ATTEMPTS TO EXTUBATE
[2018-11-28] MEDS: Potassium CL 10 MEQ/50 ML 50 ML IVPB SCH ×4 (11:29→15:06)
--- NOTE | 2018-11-28 12:01 | RAD ---
Date of service: 11/28/2018 HISTORY: Intubation COMPARISON: Chest radiograph dated 11/27/2018. FINDINGS: LUNGS: Pulmonary vascular congestion. Bibasilar atelectasis.. PLEURA: Small bilateral pleural effusions. No appreciable pneumothorax. CARDIOVASCULAR: Left subclavian access AICD/pacemaker redemonstrated. Aortic atherosclerotic calcifications. Cardiomediastinal silhouette stably enlarged. OSSEOUS STRUCTURES: No significant abnormalities. VISUALIZED UPPER ABDOMEN: Normal. OTHER FINDINGS: Endotracheal tube with tip above the clavicles. Enteric tube, unchanged. Right upper extremity PICC, unchanged. IMPRESSION: Endotracheal tube tip above the clavicles, and repositioning is recommended. Remainder of tubes and lines unchanged. Stable pulmonary vascular congestion and small bilateral pleural effusions.
[2018-11-28] MEDS: Insulin Detemir 100 Units/ml Inj SC SCH (22:45)
[2018-11-29] MEDS: Piperacillin/Tazobact 3.375 GM in Sodium Chloride 0.9% 100 ML IVPB SCH ×4 (03:45→23:32)
[2018-11-29] MEDS: Albuterol-Ipratrop 3 mg / 0.5 (3 ml) UD INH SCH ×6 (05:03→23:59)
[2018-11-29 05:23] LABS: ABG ALLEN TEST YES; ARTERIAL BLOOD GAS HCO3 38.6 mmol/L (21-28); ARTERIAL BLOOD GAS HEMOGLOBIN 9.5 g/dL (11.7-17.4); ARTERIAL BLOOD GAS O2 CAPACITY 13.3 mL/dL (16-24); ARTERIAL BLOOD GAS O2 CONTENT 13.3 ML/dL (15-23); ARTERIAL BLOOD GAS O2 SAT 99.9 % (95-98); ARTERIAL BLOOD GAS PCO2 35 mm/Hg (35-45); ARTERIAL BLOOD GAS PH 7.66 (7.35-7.45); ARTERIAL BLOOD GAS PO2 158 mm/Hg (80-100); ARTERIAL BLOOD GAS TCO2 40.6 mmol/L (22-28)
[2018-11-29 06:21] LABS: HEMOGLOBIN 9.4 g/dL (12.0-16.0); MEAN CELL VOLUME 83.5 fl (81.0-99.0); MEAN CORPUSCULAR HEMOGLOBIN 26.8 pg (27.0-31.0); MEAN CORPUSCULAR HGB CONC 32.1 g/dL (33.0-37.0); RBC 3.5 Mil/uL (3.80-5.20); RED CELL DISTRIBUTION WIDTH 21.2 % (11.5-14.5); WHITE BLOOD COUNT 4.1 K/uL (4.8-10.8)
[2018-11-29] MEDS: Insulin Regular 100 units/ml SC SCH ×4 (06:21→23:28)
[2018-11-29] MEDS: Propofol 10 mg/ml 1,000 MG/100 ML VIAL IV SCH ×3 (06:34→22:07)
[2018-11-29 06:39] LABS: ALB/GLOB RATIO 0.9 (1.0-2.1); ALBUMIN 2.8 g/dL (3.5-5.0); ALT/SGPT 30 U/L (9-52); AST/SGOT 29 U/L (14-36); BLOOD UREA NITROGEN 17 mg/dl (7-17); CALCIUM 8.4 mg/dL (8.4-10.2); GFR NON-AFRICAN AMERICAN > 60
--- NOTE | 2018-11-29 07:50 | CP.CCUPN ---
CCU Subjective - Physician Review Events Since Last Encounter (Free Text): Patient on ventilator, on PRVC TV 400, RR 12, FIO2 50%, no pressors, sedated, no fever, events reviewed CCU Objective - Vital Signs / Intake & Output Vital Signs (Last 4 hours): Vital Signs Temp Pulse Resp BP Pulse Ox 11/29/18 06:59 71 12 130/55 L 96 11/29/18 06:00 74 12 131/60 95 11/29/18 05:00 75 12 114/51 L 96 11/29/18 04:00 99 F 71 12 116/55 L 97 Intake and Output (Last 8hrs): Intake & Output 11/28/18 11/29/18 11/29/18 22:59 06:59 14:59 Intake Total 870 520 Output Total 4050 1400 Balance -3180 -880 Weight 224 lb 6.4 oz Intake: IV 250 Intake, Piggyback 100 Tube Feeding 320 320 Free Water Flush 200 200 Output: Urine 4050 1400 Urethral (Arias) 4050 1400 - Physical Exam Head: Positive for: Atraumatic, Normocephalic Pupils: Positive for: PERRL Conjunctiva: Positive for: Normal Mouth: Positive for: Moist Mucous Membranes Nose (External): Positive for: Atraumatic Neck: Positive for: Normal Range of Motion Respiratory/Chest: Positive for: Rhonchi Cardiovascular: Positive for: Regular Rate and Rhythm Abdomen: Positive for: Normal Bowel Sounds Upper Extremity: Positive for: Normal Inspection Lower Extremity: Positive for: Normal Inspection Neurological: Positive for: Other (on ventilator, sedated) - Medications Active Medications: Active Medications Generic Name Dose Route Start Last Admin Trade Name Freq PRN Reason Stop Dose Admin Acetaminophen 650 mg 11/23/18 01:23 11/24/18 17:57 Tylenol 650mg/20.3ml Solution Ud GT 650 mg Q6 PRN Administration temp of > 100.4 F Acetaminophen 650 mg 11/24/18 17:44 Tylenol 650mg/20.3ml Solution Ud NG Q4 PRN fever 100.4 or above Albuterol/Ipratropium 3 ml 11/25/18 16:00 11/29/18 05:03 Duoneb 3 Mg/0.5 Mg (3 Ml) Ud INH 3 ml RQ4 JEANA Administration Enoxaparin Sodium 40 mg 11/23/18 09:00 11/28/18 08:28 Lovenox SC 40 mg DAILY JEANA Administration Protocol Famotidine 20 mg 11/23/18 09:00 11/28/18 20:10 Pepcid IVP 20 mg Q12 JEANA Administration Vancomycin HCl 1 gm/ Sodium 250 mls @ 166.667 mls/hr 11/23/18 09:00 11/28/18 20:11 Chloride IVPB 166.667 mls/hr Q12 JEANA Administration Protocol Piperacillin Sod/Tazobactam 100 mls @ 100 mls/hr 11/23/18 10:00 11/29/18 03:45 Sod 3.375 gm/ Sodium Chloride IVPB 100 mls/hr Q6 JEANA Administration Protocol Propofol 1,000 mg in 100 mls @ 3.054 mls/hr 11/29/18 06:30 11/29/18 06:34 Diprivan IV 11/30/18 06:23 20 mcg/kg/min .Q24H JEANA 12.214 mls/hr Administration Protocol 5 MCG/KG/MIN Insulin Detemir 10 units 11/22/18 22:00 11/28/18 22:45 Levemir SC 10 u HS JEANA Administration Insulin Human Regular 0 units 11/23/18 12:00 11/29/18 06:21 Humulin R SC Not Given ACCU-CHECK [facility] Protocol Losartan Potassium 25 mg 11/23/18 09:00 11/28/18 15:05 Cozaar PO 25 mg DAILY JEANA Administration Spironolactone 12.5 mg 11/23/18 09:00 Aldactone PO DAILY JEANA - Patient Studies Lab Studies: Microbiology Studies 11/24/18 14:53 Blood Culture - Preliminary Blood-Thru Central Line NO GROWTH AFTER 4 DAYS 11/24/18 14:43 Blood Culture - Preliminary Blood-Venous NO GROWTH AFTER 4 DAYS Lab Studies 11/29/18 11/29/18 11/29/18 Range/Units 06:05 05:30 05:30 WBC 4.1 L (4.8-10.8) K/uL RBC 3.50 L (3.80-5.20) Mil/uL Hgb 9.4 L (12.0-16.0) g/dL Hct 29.2 L (34.0-47.0) % MCV 83.5 (81.0-99.0) fl MCH 26.8 L (27.0-31.0) pg MCHC 32.1 L (33.0-37.0) g/dL RDW 21.2 H (11.5-14.5) % Plt Count 182 (130-400) K/uL pCO2 (35-45) mm/Hg pO2 (80-100) mm/Hg HCO3 (21-28) mmol/L ABG pH (7.35-7.45) ABG Total CO2 (22-28) mmol/L ABG O2 Saturation (95-98) % ABG O2 Content (15-23) ML/dL ABG Base Excess (-2.0-3.0) mmol/L ABG Hemoglobin (11.7-17.4) g/dL ABG Carboxyhemoglobin (0.5-1.5) % POC ABG HHb (Measured) (0.0-5.0) % ABG Methemoglobin (0.0-3.0) % ABG O2 Capacity (16-24) mL/dL Favian Test A-a O2 Difference mm/Hg Hgb O2 Saturation (95.0-98.0) % Vent Mode Mechanical Rate FiO2 % Tidal Volume PEEP Crit Value Called To Crit Value Called By Crit Value Read Back Blood Gas Notified Time Sodium 139 (132-148) mmol/l Potassium 3.2 L (3.6-5.0) MMOL/L Chloride 91 L (98-107) mmol/L Carbon Dioxide 39 H (22-30) mmol/L Anion Gap 12 (10-20) BUN 17 (7-17) mg/dl Creatinine 0.7 (0.7-1.2) mg/dl Est GFR ( Amer) > 60 Est GFR (Non-Af Amer) > 60 POC Glucose (mg/dL) 121 H (65-110) mg/dL Random Glucose 122 H (65-105) mg/dL Calcium 8.4 (8.4-10.2) mg/dL Phosphorus 4.0 (2.5-4.5) mg/dl Magnesium 1.5 L (1.6-2.3) MG/DL Total Bilirubin 0.4 (0.2-1.3) mg/dl AST 29 (14-36) U/L ALT 30 (9-52) U/L Alkaline Phosphatase 67 (38-126) U/L Total Protein 5.8 L (6.3-8.2) G/DL Albumin 2.8 L (3.5-5.0) g/dL Globulin 3.1 (2.2-3.9) gm/dL Albumin/Globulin Ratio 0.9 L (1.0-2.1) 11/29/18 11/28/18 11/28/18 Range/Units 05:04 21:53 16:51 WBC (4.8-10.8) K/uL RBC (3.80-5.20) Mil/uL Hgb (12.0-16.0) g/dL Hct (34.0-47.0) % MCV (81.0-99.0) fl MCH (27.0-31.0) pg MCHC (33.0-37.0) g/dL RDW (11.5-14.5) % Plt Count (130-400) K/uL pCO2 35 (35-45) mm/Hg pO2 158 H (80-100) mm/Hg HCO3 38.6 H (21-28) mmol/L ABG pH 7.66 H* (7.35-7.45) ABG Total CO2 40.6 H (22-28) mmol/L ABG O2 Saturation 99.9 H (95-98) % ABG O2 Content 13.3 L (15-23) ML/dL ABG Base Excess 17.5 H (-2.0-3.0) mmol/L ABG Hemoglobin 9.5 L (11.7-17.4) g/dL ABG Carboxyhemoglobin 1.6 H (0.5-1.5) % POC ABG HHb (Measured) 0.1 (0.0-5.0) % ABG Methemoglobin 1.1 (0.0-3.0) % ABG O2 Capacity 13.3 L (16-24) mL/dL Favian Test Yes A-a O2 Difference 155.0 mm/Hg Hgb O2 Saturation 97.2 (95.0-98.0) % Vent Mode A/c Mechanical Rate 12 FiO2 50.0 % Tidal Volume 400 PEEP 5 Crit Value Called To Dr yue boyd Crit Value Called By Miguel Crit Value Read Back Y Blood Gas Notified Time 523 Sodium (132-148) mmol/l Potassium (3.6-5.0) MMOL/L Chloride (98-107) mmol/L Carbon Dioxide (22-30) mmol/L Anion Gap (10-20) BUN (7-17) mg/dl Creatinine (0.7-1.2) mg/dl Est GFR ( Amer) Est GFR (Non-Af Amer) POC Glucose (mg/dL) 125 H 100 (65-110) mg/dL Random Glucose (65-105) mg/dL Calcium (8.4-10.2) mg/dL Phosphorus (2.5-4.5) mg/dl Magnesium (1.6-2.3) MG/DL Total Bilirubin (0.2-1.3) mg/dl AST (14-36) U/L ALT (9-52) U/L Alkaline Phosphatase (38-126) U/L Total Protein (6.3-8.2) G/DL Albumin (3.5-5.0) g/dL Globulin (2.2-3.9) gm/dL Albumin/Globulin Ratio (1.0-2.1) 11/28/18 11/28/18 Range/Units 11:08 05:30 WBC (4.8-10.8) K/uL RBC (3.80-5.20) Mil/uL Hgb (12.0-16.0) g/dL Hct (34.0-47.0) % MCV (81.0-99.0) fl MCH (27.0-31.0) pg MCHC (33.0-37.0) g/dL RDW (11.5-14.5) % Plt Count (130-400) K/uL pCO2 (35-45) mm/Hg pO2 (80-100) mm/Hg HCO3 (21-28) mmol/L ABG pH (7.35-7.45) ABG Total CO2 (22-28) mmol/L ABG O2 Saturation (95-98) % ABG O2 Content (15-23) ML/dL ABG Base Excess (-2.0-3.0) mmol/L ABG Hemoglobin (11.7-17.4) g/dL ABG Carboxyhemoglobin (0.5-1.5) % POC ABG HHb (Measured) (0.0-5.0) % ABG Methemoglobin (0.0-3.0) % ABG O2 Capacity (16-24) mL/dL Favian Test A-a O2 Difference mm/Hg Hgb O2 Saturation (95.0-98.0) % Vent Mode Mechanical Rate FiO2 % Tidal Volume PEEP Crit Value Called To Crit Value Called By Crit Value Read Back Blood Gas Notified Time Sodium 142 (132-148) mmol/l Potassium 3.0 L (3.6-5.0) MMOL/L Chloride 94 L (98-107) mmol/L Carbon Dioxide 39 H (22-30) mmol/L Anion Gap 12 (10-20) BUN 16 (7-17) mg/dl Creatinine 0.7 (0.7-1.2) mg/dl Est GFR ( Amer) > 60 Est GFR (Non-Af Amer) > 60 POC Glucose (mg/dL) 108 (65-110) mg/dL Random Glucose 101 (65-105) mg/dL Calcium 8.6 (8.4-10.2) mg/dL Phosphorus (2.5-4.5) mg/dl Magnesium (1.6-2.3) MG/DL Total Bilirubin (0.2-1.3) mg/dl AST (14-36) U/L ALT (9-52) U/L Alkaline Phosphatase (38-126) U/L Total Protein (6.3-8.2) G/DL Albumin (3.5-5.0) g/dL Globulin (2.2-3.9) gm/dL Albumin/Globulin Ratio (1.0-2.1) Laboratory Results - last 24 hr 11/28/18 11/28/18 11/28/18 05:30 11:08 16:51 WBC RBC Hgb Hct MCV MCH MCHC RDW Plt Count pCO2 pO2 HCO3 ABG pH ABG Total CO2 ABG O2 Saturation ABG O2 Content ABG Base Excess ABG Hemoglobin ABG Carboxyhemoglobin POC ABG HHb (Measured) ABG Methemoglobin ABG O2 Capacity Favian Test A-a O2 Difference Hgb O2 Saturation Vent Mode Mechanical Rate FiO2 Tidal Volume PEEP Crit Value Called To Crit Value Called By Crit Value Read Back Blood Gas Notified Time Sodium 142 Potassium 3.0 L Chloride 94 L Carbon Dioxide 39 H Anion Gap 12 BUN 16 Creatinine 0.7 Est GFR ( Amer) > 60 Est GFR (Non-Af Amer) > 60 POC Glucose (mg/dL) 108 100 Random Glucose 101 Calcium 8.6 Phosphorus Magnesium Total Bilirubin AST ALT Alkaline Phosphatase Total Protein Albumin Globulin Albumin/Globulin Ratio 11/28/18 11/29/18 11/29/18 21:53 05:04 05:30 WBC 4.1 L RBC 3.50 L Hgb 9.4 L Hct 29.2 L MCV 83.5 MCH 26.8 L MCHC 32.1 L RDW 21.2 H Plt Count 182 pCO2 35 pO2 158 H HCO3 38.6 H ABG pH 7.66 H* ABG Total CO2 40.6 H ABG O2 Saturation 99.9 H ABG O2 Content 13.3 L ABG Base Excess 17.5 H ABG Hemoglobin 9.5 L ABG Carboxyhemoglobin 1.6 H POC ABG HHb (Measured) 0.1 ABG Methemoglobin 1.1 ABG O2 Capacity 13.3 L Favian Test Yes A-a O2 Difference 155.0 Hgb O2 Saturation 97.2 Vent Mode A/c Mechanical Rate 12 FiO2 50.0 Tidal Volume 400 PEEP 5 Crit Value Called To Dr yue boyd Crit Value Called By Crit Value Read Back Y Blood Gas Notified Time 523 Sodium Potassium Chloride Carbon Dioxide Anion Gap BUN Creatinine Est GFR ( Amer) Est GFR (Non-Af Amer) POC Glucose (mg/dL) 125 H Random Glucose Calcium Phosphorus Magnesium Total Bilirubin AST ALT Alkaline Phosphatase Total Protein Albumin Globulin Albumin/Globulin Ratio 11/29/18 11/29/18 05:30 06:05 WBC RBC Hgb Hct MCV MCH MCHC RDW Plt Count pCO2 pO2 HCO3 ABG pH ABG Total CO2 ABG O2 Saturation ABG O2 Content ABG Base Excess ABG Hemoglobin ABG Carboxyhemoglobin POC ABG HHb (Measured) ABG Methemoglobin ABG O2 Capacity Favian Test A-a O2 Difference Hgb O2 Saturation Vent Mode Mechanical Rate FiO2 Tidal Volume PEEP Crit Value Called To Crit Value Called By Crit Value Read Back Blood Gas Notified Time Sodium 139 Potassium 3.2 L Chloride 91 L Carbon Dioxide 39 H Anion Gap 12 BUN 17 Creatinine 0.7 Est GFR ( Amer) > 60 Est GFR (Non-Af Amer) > 60 POC Glucose (mg/dL) 121 H Random Glucose 122 H Calcium 8.4 Phosphorus 4.0 Magnesium 1.5 L Total Bilirubin 0.4 AST 29 ALT 30 Alkaline Phosphatase 67 Total Protein 5.8 L Albumin 2.8 L Globulin 3.1 Albumin/Globulin Ratio 0.9 L Radiology Impressions: Radiology Impressions Chest X-Ray 11/28/18 05:00 IMPRESSION: Endotracheal tube tip above the clavicles, and repositioning is recommended. Remainder of tubes and lines unchanged. Stable pulmonary vascular congestion and small bilateral pleural effusions. Fingerstick Blood Sugar Results: 121 Critical Care Progress Note - Nutrition Nutrition: Nutrition Category Date Time Status NPO Diet [DIET] Diets 11/23/18 Dinner Active Assessment/Plan - Assessment and Plan (Free Text) Assessment: A/P Respiratory failure, pneumonia, COPD, h/o CHF, h/o DM, metabolic encephalopathy - Ventilatory support - Pulmonary toilets - Weaning as tolerated - Continue meds - DVT prophylaxis Critical care 35 min
[2018-11-29] MEDS: Enoxaparin 40 mg Syringe SC SCH (09:34)
[2018-11-29] MEDS: Potassium CL 10 MEQ/50 ML 50 ML IVPB SCH ×4 (10:07→13:26)
[2018-11-29 10:57] LABS: ABG ALLEN TEST YES; ARTERIAL BLOOD GAS HCO3 37.9 mmol/L (21-28); ARTERIAL BLOOD GAS HEMOGLOBIN 9.8 g/dL (11.7-17.4); ARTERIAL BLOOD GAS O2 CAPACITY 13.5 mL/dL (16-24); ARTERIAL BLOOD GAS O2 CONTENT 13.4 ML/dL (15-23); ARTERIAL BLOOD GAS O2 SAT 98.9 % (95-98); ARTERIAL BLOOD GAS PCO2 60 mm/Hg (35-45); ARTERIAL BLOOD GAS PH 7.46 (7.35-7.45); ARTERIAL BLOOD GAS PO2 92 mm/Hg (80-100); ARTERIAL BLOOD GAS TCO2 44.5 mmol/L (22-28)
--- NOTE | 2018-11-29 11:06 | RAD ---
Date of service: 11/29/2018 HISTORY: ETT COMPARISON: Chest radiograph dated 11/28/2018 FINDINGS: LUNGS: Pulmonary vascular congestion. Bibasilar atelectasis. PLEURA: Bilateral pleural effusions. No appreciable pneumothorax. CARDIOVASCULAR: Left subclavian access AICD/pacemaker redemonstrated. Aortic atherosclerotic calcifications. Cardiomediastinal silhouette stably enlarged. OSSEOUS STRUCTURES: Unchanged. VISUALIZED UPPER ABDOMEN: Normal. OTHER FINDINGS: Endotracheal tube tip at the level of the clavicular heads. Enteric tube, unchanged. Right upper extremity PICC, unchanged. IMPRESSION: Persistently malpositioned endotracheal tube. Advancement is recommended. Otherwise, stable tubes and lines. Stable pulmonary vascular congestion and small bilateral pleural effusions. No significant interval change.
--- NOTE | 2018-11-29 11:14 | CP.PCM.PN ---
Subjective - Date & Time of Evaluation Date of Evaluation: 11/29/18 Time of Evaluation: 11:16 - Subjective Subjective: SEDATED AND STILL INTUBATED ATTEMPTS TO WEAN OFF VENT SO FAR FUTILE Objective - Vital Signs/Intake and Output Vital Signs (last 24 hours): Temp Pulse Resp BP Pulse Ox 98.8 F 80 10 L 114/53 L 98 11/29/18 08:00 11/29/18 09:33 11/29/18 09:00 11/29/18 09:33 11/29/18 09:00 Intake and Output: 11/29/18 11/29/18 06:59 18:59 Intake Total 980 108 Output Total 1400 Balance -420 108 - Medications Medications: Current Medications Acetaminophen (Tylenol 650mg/20.3ml Solution Ud) 650 mg GT Q6 PRN PRN Reason: temp of > 100.4 F Last Admin: 11/24/18 17:57 Dose: 650 mg Acetaminophen (Tylenol 650mg/20.3ml Solution Ud) 650 mg NG Q4 PRN PRN Reason: fever 100.4 or above Albuterol/Ipratropium (Duoneb 3 Mg/0.5 Mg (3 Ml) Ud) 3 ml INH RQ4 JEANA Last Admin: 11/29/18 11:10 Dose: 3 ml Enoxaparin Sodium (Lovenox) 40 mg SC DAILY JEANA; Protocol Last Admin: 11/29/18 09:34 Dose: 40 mg Famotidine (Pepcid) 20 mg IVP Q12 JEANA Last Admin: 11/29/18 09:47 Dose: 20 mg Vancomycin HCl 1 gm/ Sodium (Chloride) 250 mls @ 166.667 mls/hr IVPB Q12 JEANA; Protocol Last Admin: 11/29/18 09:36 Dose: 166.667 mls/hr Piperacillin Sod/Tazobactam (Sod 3.375 gm/ Sodium Chloride) 100 mls @ 100 mls/hr IVPB Q6 JEANA; Protocol Last Admin: 11/29/18 09:48 Dose: 100 mls/hr Propofol (Diprivan) 1,000 mg in 100 mls @ 3.054 mls/hr IV .Q24H JEANA; Protocol Stop: 11/30/18 06:23 Last Admin: 11/29/18 06:34 Dose: 20 mcg/kg/min, 12.214 mls/hr Potassium Chloride (Potassium Cl 10meq/50ml Sterile Water) 50 mls @ 50 mls/hr IVPB Q1 [facility] Stop: 11/29/18 13:59 Last Admin: 11/29/18 10:07 Dose: 50 mls/hr Insulin Detemir (Levemir) 10 units SC [facility] Last Admin: 11/28/18 22:45 Dose: 10 u Insulin Human Regular (Humulin R) 0 units SC ACCU-CHECK JEANA; Protocol Last Admin: 11/29/18 06:21 Dose: Not Given Losartan Potassium (Cozaar) 25 mg PO DAILY [facility] Last Admin: 11/29/18 09:33 Dose: 25 mg Spironolactone (Aldactone) 12.5 mg PO DAILY [facility] - Labs Labs: 11/29/18 05:30 11/29/18 05:30 - Constitutional Appears: Chronically Ill - Head Exam Head Exam: ATRAUMATIC, NORMAL INSPECTION, NORMOCEPHALIC - Eye Exam Eye Exam: EOMI, Normal appearance, PERRL Pupil Exam: NORMAL ACCOMODATION, PERRL - ENT Exam ENT Exam: Mucous Membranes Moist, Normal Exam - Neck Exam Neck Exam: Full ROM, Normal Inspection. absent: Lymphadenopathy - Respiratory Exam Respiratory Exam: Rales Additional comments: ON THE VENTILATOR - Cardiovascular Exam Cardiovascular Exam: REGULAR RHYTHM, +S1, +S2. absent: Murmur - GI/Abdominal Exam GI & Abdominal Exam: Soft, Normal Bowel Sounds. absent: Tenderness - Rectal Exam Rectal Exam: NORMAL INSPECTION - Extremities Exam Extremities Exam: Full ROM, Normal Capillary Refill, Normal Inspection. absent: Joint Swelling, Pedal Edema - Back Exam Back Exam: NORMAL INSPECTION - Neurological Exam Neurological Exam: Alert, Awake, CN II-XII Intact, Normal Gait, Oriented x3 - Skin Skin Exam: Dry, Intact, Normal Color, Warm Assessment and Plan - Assessment and Plan (Free Text) Assessment: ACUTE HYPERCAPNEIC RESPIRATORY FAILURE ABGS--IMPROVED Plan: CASE DISCUSSED WITH PT'S DAUGHTER--SHE WANTS TO CONTINUE AGGRESSIVE INTERVENTION FOR NOW.SHE UNDERSTANDS THAT TRACHEOSTOMY MAY BE IN ORDER SOON IF UNABLE TO EXTUBATE WILL CONTINUE CURRENT RX
--- NOTE | 2018-11-29 14:22 | CP.PCM.PN ---
Subjective - Date & Time of Evaluation Date of Evaluation: 11/29/18 Time of Evaluation: 09:00 - Subjective Subjective: intubated afebrile not weanable at present Objective - Vital Signs/Intake and Output Vital Signs (last 24 hours): Temp Pulse Resp BP Pulse Ox 96.1 F L 80 11 L 127/65 98 11/29/18 12:00 11/29/18 13:00 11/29/18 13:00 11/29/18 13:00 11/29/18 13:00 Intake and Output: 11/29/18 11/29/18 06:59 18:59 Intake Total 980 1011 Output Total 1400 Balance -420 1011 - Medications Medications: Current Medications Acetaminophen (Tylenol 650mg/20.3ml Solution Ud) 650 mg GT Q6 PRN PRN Reason: temp of > 100.4 F Last Admin: 11/24/18 17:57 Dose: 650 mg Acetaminophen (Tylenol 650mg/20.3ml Solution Ud) 650 mg NG Q4 PRN PRN Reason: fever 100.4 or above Albuterol/Ipratropium (Duoneb 3 Mg/0.5 Mg (3 Ml) Ud) 3 ml INH RQ4 JEANA Last Admin: 11/29/18 11:10 Dose: 3 ml Enoxaparin Sodium (Lovenox) 40 mg SC DAILY [facility]; Protocol Last Admin: 11/29/18 09:34 Dose: 40 mg Famotidine (Pepcid) 20 mg IVP Q12 [facility]EANA Last Admin: 11/29/18 09:47 Dose: 20 mg Vancomycin HCl 1 gm/ Sodium (Chloride) 250 mls @ 166.667 mls/hr IVPB Q12 [facility]EANA; Protocol Last Admin: 11/29/18 09:36 Dose: 166.667 mls/hr Piperacillin Sod/Tazobactam (Sod 3.375 gm/ Sodium Chloride) 100 mls @ 100 mls/hr IVPB Q6 JEANA; Protocol Last Admin: 11/29/18 09:48 Dose: 100 mls/hr Propofol (Diprivan) 1,000 mg in 100 mls @ 3.054 mls/hr IV .Q24H JEANA; Protocol Stop: 11/30/18 06:23 Last Admin: 11/29/18 06:34 Dose: 20 mcg/kg/min, 12.214 mls/hr Insulin Detemir (Levemir) 10 units SC [facility] Last Admin: 11/28/18 22:45 Dose: 10 u Insulin Human Regular (Humulin R) 0 units SC ACCU-CHECK [facility]; Protocol Last Admin: 11/29/18 13:20 Dose: Not Given Losartan Potassium (Cozaar) 25 mg PO DAILY [facility] Last Admin: 11/29/18 09:33 Dose: 25 mg Spironolactone (Aldactone) 12.5 mg PO DAILY [facility] - Labs Labs: 11/29/18 05:30 11/29/18 05:30 - Constitutional Appears: Non-toxic, Chronically Ill - Head Exam Head Exam: NORMOCEPHALIC - Eye Exam Eye Exam: absent: Scleral icterus - ENT Exam ENT Exam: Mucous Membranes Dry - Neck Exam Neck Exam: absent: Lymphadenopathy - Respiratory Exam Respiratory Exam: Decreased Breath Sounds - Cardiovascular Exam Cardiovascular Exam: REGULAR RHYTHM - GI/Abdominal Exam GI & Abdominal Exam: Distended - Rectal Exam Rectal Exam: Deferred - Exam Exam: NORMAL INSPECTION - Extremities Exam Extremities Exam: absent: Pedal Edema - Back Exam Back Exam: absent: CVA tenderness (L), CVA tenderness (R) - Neurological Exam Neurological Exam: Altered - Psychiatric Exam Psychiatric exam: Depressed - Skin Skin Exam: Dry Assessment and Plan (1) Acute respiratory failure with hypoxia and hypercarbia Status: Acute (2) Bacteremia Status: Acute (3) Diabetes mellitus type 2 in obese Status: Acute (4) Pleural effusion Status: Acute (5) Respiratory failure Status: Acute - Assessment and Plan (Free Text) Assessment: intubated in ICU sedated no new cultures Cont rx as per Dr Leandro becerra
--- NOTE | 2018-11-29 15:49 | CP.PCM.PN ---
Subjective - Date & Time of Evaluation Date of Evaluation: 11/28/18 Time of Evaluation: 11:00 - Subjective Subjective: patient seen and examined at bedside. Interim events noted intubated available diagnostic data reviewed Objective Vital Signs Stable - Constitutional Appears: Chronically ill - Head Exam Head Exam: NORMAL INSPECTION - Respiratory Exam Respiratory Exam: NORMAL BREATHING PATTERN, intubated - Cardiovascular Exam Cardiovascular Exam: +S1, +S2 - GI/Abdominal Exam GI & Abdominal Exam: Soft - Skin Skin Exam: Normal Color, Warm Assessment and Plan monitor vitals monitor labs Cont meds Cont tx consultants appreciated input wean off vent trials continue rest of plan as ordered Assessment and Plan (1) Respiratory failure Status: Acute (2) Anemia Status: Chronic
--- NOTE | 2018-11-29 15:51 | CP.PCM.PN ---
Subjective - Date & Time of Evaluation Date of Evaluation: 11/29/18 Time of Evaluation: 12:00 - Subjective Subjective: patient seen and examined at bedside. Interim events noted intubated available diagnostic data reviewed Objective Vital Signs Stable - Constitutional Appears: Chronically ill - Head Exam Head Exam: NORMAL INSPECTION - Respiratory Exam Respiratory Exam: NORMAL BREATHING PATTERN, intubated - Cardiovascular Exam Cardiovascular Exam: +S1, +S2 - GI/Abdominal Exam GI & Abdominal Exam: Soft - Skin Skin Exam: Normal Color, Warm Assessment and Plan monitor vitals monitor labs Cont meds Cont tx consultants appreciated input wean off vent trials continue rest of plan as ordered Assessment and Plan (1) Respiratory failure Status: Acute (2) Anemia Status: Chronic
[2018-11-29] MEDS: Insulin Detemir 100 Units/ml Inj SC SCH (23:28)
[2018-11-30] MEDS: Albuterol-Ipratrop 3 mg / 0.5 (3 ml) UD INH SCH ×6 (04:38→23:46)
[2018-11-30 04:43] LABS: ABG ALLEN TEST YES; ARTERIAL BLOOD GAS HEMOGLOBIN 9.7 g/dL (11.7-17.4); ARTERIAL BLOOD GAS O2 CAPACITY 13.2 mL/dL (16-24); ARTERIAL BLOOD GAS O2 CONTENT 12.3 ML/dL (15-23); ARTERIAL BLOOD GAS O2 SAT 93.2 % (95-98); ARTERIAL BLOOD GAS PCO2 44 mm/Hg (35-45); ARTERIAL BLOOD GAS PH 7.56 (7.35-7.45); ARTERIAL BLOOD GAS PO2 54 mm/Hg (80-100); ARTERIAL BLOOD GAS TCO2 40.8 mmol/L (22-28)
[2018-11-30] MEDS: Piperacillin/Tazobact 3.375 GM in Sodium Chloride 0.9% 100 ML IVPB SCH ×4 (04:45→22:29)
[2018-11-30] MEDS: Propofol 10 mg/ml 1,000 MG/100 ML VIAL IV SCH ×3 (05:49→23:45)
[2018-11-30 05:53] LABS: HEMOGLOBIN 9.8 g/dL (12.0-16.0); MEAN CORPUSCULAR HGB CONC 32.1 g/dL (33.0-37.0); RBC 3.64 Mil/uL (3.80-5.20); RED CELL DISTRIBUTION WIDTH 21.3 % (11.5-14.5); WHITE BLOOD COUNT 3.5 K/uL (4.8-10.8)
[2018-11-30 06:27] LABS: BLOOD UREA NITROGEN 18 mg/dl (7-17); CALCIUM 8.8 mg/dL (8.4-10.2); GFR NON-AFRICAN AMERICAN > 60
[2018-11-30] MEDS: Insulin Regular 100 units/ml SC SCH ×4 (06:58→22:28)
--- NOTE | 2018-11-30 08:02 | CP.CCUPN ---
CCU Subjective - Physician Review Subjective (Free Text): 11/30/18 07:49 The patient was Seen/interviewed and examined by me at the bedside during ICU round, Medical records reviewed and Management issues were discussed and formulated with the house staff. Events reviewed 83 Years old Female with PMHx of CHF, Diverticulitis, HTN, Hypothyroidism, Pneumonia Who initially presents to Emergency department via EMS from senior living for an evaluation of increased lethargy and decreased mentation for 1 day. Patient was recently discharged from [facility] on 11/20/18 status post sepsis, pneumonia, and UTI. She received ABX in senior living and IV fluid challenge in field by paramedics. She was admitted to the ICU for acute Hypercapneic Resp Failure secondary to bilateral Pneumonia and COPD Exacerbation Currently sedated and orally intubated, Patient on ventilator, on PRVC TV 400, RR 12, FIO2 50% No Vasopressors CCU Objective - Vital Signs / Intake & Output Vital Signs (Last 4 hours): Vital Signs Temp Pulse Resp BP Pulse Ox 11/30/18 06:00 85 12 130/69 100 11/30/18 05:00 75 12 140/69 99 11/30/18 04:00 99.1 F 100 H 12 140/69 99 Intake and Output (Last 8hrs): Intake & Output 11/29/18 11/30/18 11/30/18 22:59 06:59 14:59 Intake Total 1147 745 Output Total 350 550 Balance 797 195 Weight 229 lb 4.8 oz Intake: IV 152 100 Intake, Piggyback 350 200 Tube Feeding 245 245 Free Water Flush 400 200 Output: Urine 350 550 Urethral (Arias) 350 550 Other: # Bowel Movements 0 - Physical Exam Head: Positive for: Atraumatic, Normocephalic Pupils: Positive for: PERRL Conjunctiva: Positive for: Normal Mouth: Positive for: Moist Mucous Membranes Nose (External): Positive for: Atraumatic Neck: Positive for: Normal Range of Motion Respiratory/Chest: Positive for: Rhonchi Cardiovascular: Positive for: Regular Rate and Rhythm Abdomen: Positive for: Normal Bowel Sounds Upper Extremity: Positive for: Normal Inspection Lower Extremity: Positive for: Normal Inspection Neurological: Positive for: Other (on ventilator, sedated) - Medications Active Medications: Active Medications Generic Name Dose Route Start Last Admin Trade Name Freq PRN Reason Stop Dose Admin Acetaminophen 650 mg 11/23/18 01:23 11/24/18 17:57 Tylenol 650mg/20.3ml Solution Ud GT 650 mg Q6 PRN Administration temp of > 100.4 F Acetaminophen 650 mg 11/24/18 17:44 Tylenol 650mg/20.3ml Solution Ud NG Q4 PRN fever 100.4 or above Albuterol/Ipratropium 3 ml 11/25/18 16:00 11/30/18 04:38 Duoneb 3 Mg/0.5 Mg (3 Ml) Ud INH 3 ml RQ4 JEANA Administration Enoxaparin Sodium 40 mg 11/23/18 09:00 11/29/18 09:34 Lovenox SC 40 mg DAILY JEANA Administration Protocol Famotidine 20 mg 11/23/18 09:00 11/29/18 20:25 Pepcid IVP 20 mg Q12 JEANA Administration Vancomycin HCl 1 gm/ Sodium 250 mls @ 166.667 mls/hr 11/23/18 09:00 11/29/18 20:14 Chloride IVPB 166.667 mls/hr Q12 JEANA Administration Protocol Piperacillin Sod/Tazobactam 100 mls @ 100 mls/hr 11/23/18 10:00 11/30/18 04:45 Sod 3.375 gm/ Sodium Chloride IVPB 100 mls/hr Q6 JEANA Administration Protocol Insulin Detemir 10 units 11/22/18 22:00 11/29/18 23:28 Levemir SC 10 u HS JEANA Administration Insulin Human Regular 0 units 11/23/18 12:00 11/30/18 06:58 Humulin R SC Not Given ACCU-CHECK [facility] Protocol Losartan Potassium 25 mg 11/23/18 09:00 11/29/18 09:33 Cozaar PO 25 mg DAILY JEANA Administration Spironolactone 12.5 mg 11/23/18 09:00 Aldactone PO DAILY JEANA - Patient Studies Lab Studies: Microbiology Studies 11/24/18 14:43 Blood Culture - Final Blood-Venous NO GROWTH AFTER 5 DAYS Gram Stain - Final TEST NOT PERFORMED 11/24/18 14:53 Blood Culture - Final Blood-Thru Central Line NO GROWTH AFTER 5 DAYS Gram Stain - Final TEST NOT PERFORMED Lab Studies 11/30/18 11/30/18 11/30/18 Range/Units 06:23 04:30 04:30 WBC 3.5 L (4.8-10.8) K/uL RBC 3.64 L (3.80-5.20) Mil/uL Hgb 9.8 L (12.0-16.0) g/dL Hct 30.6 L (34.0-47.0) % MCV 84.0 (81.0-99.0) fl MCH 27.0 (27.0-31.0) pg MCHC 32.1 L (33.0-37.0) g/dL RDW 21.3 H (11.5-14.5) % Plt Count 200 (130-400) K/uL pCO2 (35-45) mm/Hg pO2 (80-100) mm/Hg HCO3 (21-28) mmol/L ABG pH (7.35-7.45) ABG Total CO2 (22-28) mmol/L ABG O2 Saturation (95-98) % ABG O2 Content (15-23) ML/dL ABG Base Excess (-2.0-3.0) mmol/L ABG Hemoglobin (11.7-17.4) g/dL ABG Carboxyhemoglobin (0.5-1.5) % POC ABG HHb (Measured) (0.0-5.0) % ABG Methemoglobin (0.0-3.0) % ABG O2 Capacity (16-24) mL/dL Favian Test A-a O2 Difference mm/Hg Hgb O2 Saturation (95.0-98.0) % Vent Mode Mechanical Rate FiO2 % Tidal Volume PEEP Sodium 139 (132-148) mmol/l Potassium 3.3 L (3.6-5.0) MMOL/L Chloride 94 L (98-107) mmol/L Carbon Dioxide 36 H (22-30) mmol/L Anion Gap 12 (10-20) BUN 18 H (7-17) mg/dl Creatinine 0.7 (0.7-1.2) mg/dl Est GFR ( Amer) > 60 Est GFR (Non-Af Amer) > 60 POC Glucose (mg/dL) 99 (65-110) mg/dL Random Glucose 118 H (65-105) mg/dL Calcium 8.8 (8.4-10.2) mg/dL Procalcitonin (0.19-0.49) NG/ML Vancomycin Trough (5.0-10.0) ug/mL 11/30/18 11/30/18 11/29/18 Range/Units 04:30 04:28 23:25 WBC (4.8-10.8) K/uL RBC (3.80-5.20) Mil/uL Hgb (12.0-16.0) g/dL Hct (34.0-47.0) % MCV (81.0-99.0) fl MCH (27.0-31.0) pg MCHC (33.0-37.0) g/dL RDW (11.5-14.5) % Plt Count (130-400) K/uL pCO2 44 (35-45) mm/Hg pO2 54 L (80-100) mm/Hg HCO3 37.0 H (21-28) mmol/L ABG pH 7.56 H (7.35-7.45) ABG Total CO2 40.8 H (22-28) mmol/L ABG O2 Saturation 93.2 L (95-98) % ABG O2 Content 12.3 L (15-23) ML/dL ABG Base Excess 15.6 H (-2.0-3.0) mmol/L ABG Hemoglobin 9.7 L (11.7-17.4) g/dL ABG Carboxyhemoglobin 2.0 H (0.5-1.5) % POC ABG HHb (Measured) 6.6 H (0.0-5.0) % ABG Methemoglobin 1.3 (0.0-3.0) % ABG O2 Capacity 13.2 L (16-24) mL/dL Favian Test Yes A-a O2 Difference 248.0 mm/Hg Hgb O2 Saturation 90.0 L (95.0-98.0) % Vent Mode A/c Mechanical Rate 12 FiO2 50.0 % Tidal Volume 400 PEEP 5 Sodium (132-148) mmol/l Potassium (3.6-5.0) MMOL/L Chloride (98-107) mmol/L Carbon Dioxide (22-30) mmol/L Anion Gap (10-20) BUN (7-17) mg/dl Creatinine (0.7-1.2) mg/dl Est GFR ( Amer) Est GFR (Non-Af Amer) POC Glucose (mg/dL) 123 H (65-110) mg/dL Random Glucose (65-105) mg/dL Calcium (8.4-10.2) mg/dL Procalcitonin (0.19-0.49) NG/ML Vancomycin Trough 29.7 H (5.0-10.0) ug/mL 11/29/18 11/29/18 11/29/18 Range/Units 21:16 15:51 11:43 WBC (4.8-10.8) K/uL RBC (3.80-5.20) Mil/uL Hgb (12.0-16.0) g/dL Hct (34.0-47.0) % MCV (81.0-99.0) fl MCH (27.0-31.0) pg MCHC (33.0-37.0) g/dL RDW (11.5-14.5) % Plt Count (130-400) K/uL pCO2 (35-45) mm/Hg pO2 (80-100) mm/Hg HCO3 (21-28) mmol/L ABG pH (7.35-7.45) ABG Total CO2 (22-28) mmol/L ABG O2 Saturation (95-98) % ABG O2 Content (15-23) ML/dL ABG Base Excess (-2.0-3.0) mmol/L ABG Hemoglobin (11.7-17.4) g/dL ABG Carboxyhemoglobin (0.5-1.5) % POC ABG HHb (Measured) (0.0-5.0) % ABG Methemoglobin (0.0-3.0) % ABG O2 Capacity (16-24) mL/dL Favian Test A-a O2 Difference mm/Hg Hgb O2 Saturation (95.0-98.0) % Vent Mode Mechanical Rate FiO2 % Tidal Volume PEEP Sodium (132-148) mmol/l Potassium (3.6-5.0) MMOL/L Chloride (98-107) mmol/L Carbon Dioxide (22-30) mmol/L Anion Gap (10-20) BUN (7-17) mg/dl Creatinine (0.7-1.2) mg/dl Est GFR ( Amer) Est GFR (Non-Af Amer) POC Glucose (mg/dL) 117 H 105 117 H (65-110) mg/dL Random Glucose (65-105) mg/dL Calcium (8.4-10.2) mg/dL Procalcitonin (0.19-0.49) NG/ML Vancomycin Trough (5.0-10.0) ug/mL 11/29/18 11/29/18 Range/Units 10:45 05:30 WBC (4.8-10.8) K/uL RBC (3.80-5.20) Mil/uL Hgb (12.0-16.0) g/dL Hct (34.0-47.0) % MCV (81.0-99.0) fl MCH (27.0-31.0) pg MCHC (33.0-37.0) g/dL RDW (11.5-14.5) % Plt Count (130-400) K/uL pCO2 60 H (35-45) mm/Hg pO2 92 (80-100) mm/Hg HCO3 37.9 H (21-28) mmol/L ABG pH 7.46 H (7.35-7.45) ABG Total CO2 44.5 H (22-28) mmol/L ABG O2 Saturation 98.9 H (95-98) % ABG O2 Content 13.4 L (15-23) ML/dL ABG Base Excess 16.6 H (-2.0-3.0) mmol/L ABG Hemoglobin 9.8 L (11.7-17.4) g/dL ABG Carboxyhemoglobin 1.7 H (0.5-1.5) % POC ABG HHb (Measured) 1.1 (0.0-5.0) % ABG Methemoglobin 1.1 (0.0-3.0) % ABG O2 Capacity 13.5 L (16-24) mL/dL Favian Test Yes A-a O2 Difference 190.0 mm/Hg Hgb O2 Saturation 96.1 (95.0-98.0) % Vent Mode Prvc/ac Mechanical Rate 10 FiO2 50.0 % Tidal Volume 400 PEEP 5 Sodium (132-148) mmol/l Potassium (3.6-5.0) MMOL/L Chloride (98-107) mmol/L Carbon Dioxide (22-30) mmol/L Anion Gap (10-20) BUN (7-17) mg/dl Creatinine (0.7-1.2) mg/dl Est GFR ( Amer) Est GFR (Non-Af Amer) POC Glucose (mg/dL) (65-110) mg/dL Random Glucose (65-105) mg/dL Calcium (8.4-10.2) mg/dL Procalcitonin < 0.05 L (0.19-0.49) NG/ML Vancomycin Trough (5.0-10.0) ug/mL Laboratory Results - last 24 hr 11/29/18 11/29/18 11/29/18 05:30 10:45 11:43 WBC RBC Hgb Hct MCV MCH MCHC RDW Plt Count pCO2 60 H pO2 92 HCO3 37.9 H ABG pH 7.46 H ABG Total CO2 44.5 H ABG O2 Saturation 98.9 H ABG O2 Content 13.4 L ABG Base Excess 16.6 H ABG Hemoglobin 9.8 L ABG Carboxyhemoglobin 1.7 H POC ABG HHb (Measured) 1.1 ABG Methemoglobin 1.1 ABG O2 Capacity 13.5 L Favian Test Yes A-a O2 Difference 190.0 Hgb O2 Saturation 96.1 Vent Mode Prvc/ac Mechanical Rate 10 FiO2 50.0 Tidal Volume 400 PEEP 5 Sodium Potassium Chloride Carbon Dioxide Anion Gap BUN Creatinine Est GFR ( Amer) Est GFR (Non-Af Amer) POC Glucose (mg/dL) 117 H Random Glucose Calcium Procalcitonin < 0.05 L Vancomycin Trough 11/29/18 11/29/18 11/29/18 15:51 21:16 23:25 WBC RBC Hgb Hct MCV MCH MCHC RDW Plt Count pCO2 pO2 HCO3 ABG pH ABG Total CO2 ABG O2 Saturation ABG O2 Content ABG Base Excess ABG Hemoglobin ABG Carboxyhemoglobin POC ABG HHb (Measured) ABG Methemoglobin ABG O2 Capacity Favian Test A-a O2 Difference Hgb O2 Saturation Vent Mode Mechanical Rate FiO2 Tidal Volume PEEP Sodium Potassium Chloride Carbon Dioxide Anion Gap BUN Creatinine Est GFR ( Amer) Est GFR (Non-Af Amer) POC Glucose (mg/dL) 105 117 H 123 H Random Glucose Calcium Procalcitonin Vancomycin Trough 11/30/18 11/30/18 11/30/18 04:28 04:30 04:30 WBC 3.5 L RBC 3.64 L Hgb 9.8 L Hct 30.6 L MCV 84.0 MCH 27.0 MCHC 32.1 L RDW 21.3 H Plt Count 200 pCO2 44 pO2 54 L HCO3 37.0 H ABG pH 7.56 H ABG Total CO2 40.8 H ABG O2 Saturation 93.2 L ABG O2 Content 12.3 L ABG Base Excess 15.6 H ABG Hemoglobin 9.7 L ABG Carboxyhemoglobin 2.0 H POC ABG HHb (Measured) 6.6 H ABG Methemoglobin 1.3 ABG O2 Capacity 13.2 L Favian Test Yes A-a O2 Difference 248.0 Hgb O2 Saturation 90.0 L Vent Mode A/c Mechanical Rate 12 FiO2 50.0 Tidal Volume 400 PEEP 5 Sodium Potassium Chloride Carbon Dioxide Anion Gap BUN Creatinine Est GFR ( Amer) Est GFR (Non-Af Amer) POC Glucose (mg/dL) Random Glucose Calcium Procalcitonin Vancomycin Trough 29.7 H 11/30/18 11/30/18 04:30 06:23 WBC RBC Hgb Hct MCV MCH MCHC RDW Plt Count pCO2 pO2 HCO3 ABG pH ABG Total CO2 ABG O2 Saturation ABG O2 Content ABG Base Excess ABG Hemoglobin ABG Carboxyhemoglobin POC ABG HHb (Measured) ABG Methemoglobin ABG O2 Capacity Favian Test A-a O2 Difference Hgb O2 Saturation Vent Mode Mechanical Rate FiO2 Tidal Volume PEEP Sodium 139 Potassium 3.3 L Chloride 94 L Carbon Dioxide 36 H Anion Gap 12 BUN 18 H Creatinine 0.7 Est GFR ( Amer) > 60 Est GFR (Non-Af Amer) > 60 POC Glucose (mg/dL) 99 Random Glucose 118 H Calcium 8.8 Procalcitonin Vancomycin Trough Radiology Impressions: Radiology Impressions Chest X-Ray 11/29/18 06:00 IMPRESSION: Persistently malpositioned endotracheal tube. Advancement is recommended. Otherwise, stable tubes and lines. Stable pulmonary vascular congestion and small bilateral pleural effusions. No significant interval change. Fingerstick Blood Sugar Results: 99 Critical Care Progress Note - Nutrition Nutrition: Nutrition Category Date Time Status NPO Diet [DIET] Diets 11/23/18 Dinner Active Assessment/Plan (1) Acute respiratory failure with hypoxia and hypercarbia Current Visit: Yes Status: Acute Priority: High Comment: Daily SAT/SBT Might need Trach (2) Bacteremia Current Visit: Yes Status: Acute Priority: High Comment: Continue IV Zosyn IV Vanco on hold due to elevated drug level (3) Pleural effusion Current Visit: Yes Status: Acute Priority: High (4) Hospital-acquired pneumonia Current Visit: Yes Status: Acute Priority: High (5) CHF (congestive heart failure) Current Visit: Yes Status: Chronic Priority: High Comment: Pt developed metabolic alkalemia, IV lasix 40 mg BID switched to 40 mg IV DAILY ABG in Am, consider Diamox 250 mg Po BID (6) Sepsis Current Visit: Yes Status: Acute Priority: High
--- NOTE | 2018-11-30 08:07 | CP.PCM.PN ---
Subjective - Date & Time of Evaluation Date of Evaluation: 11/30/18 Time of Evaluation: 08:10 - Subjective Subjective: SEDATED STILL INTUBATED AND BEING VENTILATED ABGS REVIEWED Objective - Vital Signs/Intake and Output Vital Signs (last 24 hours): Temp Pulse Resp BP Pulse Ox 98.4 F 67 12 114/63 96 11/30/18 07:55 11/30/18 07:55 11/30/18 07:55 11/30/18 07:55 11/30/18 07:55 Intake and Output: 11/30/18 11/30/18 06:59 18:59 Intake Total 1400 Output Total 550 Balance 850 - Medications Medications: Current Medications Acetaminophen (Tylenol 650mg/20.3ml Solution Ud) 650 mg GT Q6 PRN PRN Reason: temp of > 100.4 F Last Admin: 11/24/18 17:57 Dose: 650 mg Acetaminophen (Tylenol 650mg/20.3ml Solution Ud) 650 mg NG Q4 PRN PRN Reason: fever 100.4 or above Albuterol/Ipratropium (Duoneb 3 Mg/0.5 Mg (3 Ml) Ud) 3 ml INH RQ4 JEANA Last Admin: 11/30/18 07:56 Dose: 3 ml Enoxaparin Sodium (Lovenox) 40 mg SC DAILY JEANA; Protocol Last Admin: 11/29/18 09:34 Dose: 40 mg Famotidine (Pepcid) 20 mg IVP Q12 JEANA Last Admin: 11/29/18 20:25 Dose: 20 mg Vancomycin HCl 1 gm/ Sodium (Chloride) 250 mls @ 166.667 mls/hr IVPB Q12 JEANA; Protocol Last Admin: 11/29/18 20:14 Dose: 166.667 mls/hr Piperacillin Sod/Tazobactam (Sod 3.375 gm/ Sodium Chloride) 100 mls @ 100 mls/hr IVPB Q6 JEANA; Protocol Last Admin: 11/30/18 04:45 Dose: 100 mls/hr Insulin Detemir (Levemir) 10 units SC HS JEANA Last Admin: 11/29/18 23:28 Dose: 10 u Insulin Human Regular (Humulin R) 0 units SC ACCU-CHECK [facility]; Protocol Last Admin: 11/30/18 06:58 Dose: Not Given Losartan Potassium (Cozaar) 25 mg PO DAILY [facility] Last Admin: 11/29/18 09:33 Dose: 25 mg Spironolactone (Aldactone) 12.5 mg PO DAILY [facility] - Labs Labs: 11/30/18 04:30 11/30/18 04:30 - Constitutional Appears: Chronically Ill - Head Exam Head Exam: ATRAUMATIC, NORMAL INSPECTION, NORMOCEPHALIC - Eye Exam Eye Exam: EOMI, Normal appearance, PERRL Pupil Exam: NORMAL ACCOMODATION, PERRL - ENT Exam ENT Exam: Mucous Membranes Moist, Normal Exam - Neck Exam Neck Exam: Full ROM, Normal Inspection. absent: Lymphadenopathy - Respiratory Exam Respiratory Exam: Rales Additional comments: ON THE RESPIRATOR - Cardiovascular Exam Cardiovascular Exam: REGULAR RHYTHM, +S1, +S2. absent: Murmur - GI/Abdominal Exam GI & Abdominal Exam: Soft, Normal Bowel Sounds. absent: Tenderness - Rectal Exam Rectal Exam: NORMAL INSPECTION - Extremities Exam Extremities Exam: Full ROM, Normal Capillary Refill, Normal Inspection. absent: Joint Swelling, Pedal Edema - Back Exam Back Exam: NORMAL INSPECTION - Psychiatric Exam Psychiatric exam: Normal Affect, Normal Mood - Skin Skin Exam: Dry, Intact, Normal Color, Warm Assessment and Plan - Assessment and Plan (Free Text) Assessment: HYPERCAPNEIC RESPIRATORY FAILURE Plan: CONTINUE CURRENT RX MAY NEED TRACHEOSTOMY IF UNABLE TO EXTUBATE SOON
[2018-11-30] MEDS: Enoxaparin 40 mg Syringe SC SCH (09:09)
--- NOTE | 2018-11-30 11:35 | RAD ---
Date of service: 11/30/2018 HISTORY: ETT placement COMPARISON: 11/29/2018 FINDINGS: LUNGS: Probable subsegmental atelectasis at right base. No definite infiltrate. PLEURA: Probable small left pleural effusion. No evidence of right pleural effusion. No pneumothorax. CARDIOVASCULAR: There is atherosclerotic calcification of the aortic arch. Normal cardiac size. Permanent pacemaker. ET tube and NG tube unchanged. No congestive change. OSSEOUS STRUCTURES: No significant abnormalities. VISUALIZED UPPER ABDOMEN: Normal. OTHER FINDINGS: None. IMPRESSION: Possible small left pleural effusion. Lines and tubes unchanged.
[2018-11-30] MEDS: Potassium CL 10 MEQ/50 ML 50 ML IVPB SCH ×4 (12:45→15:59)
--- NOTE | 2018-11-30 14:13 | CP.PCM.PN ---
Subjective - Date & Time of Evaluation Date of Evaluation: 11/30/18 Time of Evaluation: 07:00 - Subjective Subjective: intubated in ICU sedated no new cultures will likely need trach and PEG Objective - Vital Signs/Intake and Output Vital Signs (last 24 hours): Temp Pulse Resp BP Pulse Ox 98.8 F 70 12 122/57 L 99 11/30/18 12:02 11/30/18 13:00 11/30/18 13:00 11/30/18 13:00 11/30/18 13:00 Intake and Output: 11/30/18 11/30/18 06:59 18:59 Intake Total 1400 590 Output Total 550 Balance 850 590 - Medications Medications: Current Medications Acetaminophen (Tylenol 650mg/20.3ml Solution Ud) 650 mg GT Q6 PRN PRN Reason: temp of > 100.4 F Last Admin: 11/24/18 17:57 Dose: 650 mg Acetaminophen (Tylenol 650mg/20.3ml Solution Ud) 650 mg NG Q4 PRN PRN Reason: fever 100.4 or above Albuterol/Ipratropium (Duoneb 3 Mg/0.5 Mg (3 Ml) Ud) 3 ml INH RQ4 JEANA Last Admin: 11/30/18 11:01 Dose: 3 ml Enoxaparin Sodium (Lovenox) 40 mg SC DAILY [facility]; Protocol Last Admin: 11/30/18 09:09 Dose: 40 mg Vancomycin HCl 1 gm/ Sodium (Chloride) 250 mls @ 166.667 mls/hr IVPB Q12 [facility]; Protocol Last Admin: 11/30/18 09:11 Dose: Not Given Piperacillin Sod/Tazobactam (Sod 3.375 gm/ Sodium Chloride) 100 mls @ 100 mls/hr IVPB Q6 [facility]; Protocol Last Admin: 11/30/18 09:12 Dose: 100 mls/hr Potassium Chloride (Potassium Cl 10meq/50ml Sterile Water) 50 mls @ 50 mls/hr IVPB Q1 JEANA Stop: 11/30/18 15:59 Last Admin: 11/30/18 13:55 Dose: 50 mls/hr Insulin Detemir (Levemir) 10 units SC HS [facility] Last Admin: 11/29/18 23:28 Dose: 10 u Insulin Human Regular (Humulin R) 0 units SC ACCU-CHECK [facility]; Protocol Last Admin: 11/30/18 11:10 Dose: Not Given Losartan Potassium (Cozaar) 25 mg PO DAILY [facility] Last Admin: 11/30/18 09:08 Dose: 25 mg Spironolactone (Aldactone) 12.5 mg PO DAILY [facility] - Labs Labs: 11/30/18 04:30 11/30/18 04:30 - Constitutional Appears: Confused, Chronically Ill - Head Exam Head Exam: NORMOCEPHALIC - Eye Exam Eye Exam: absent: Scleral icterus - ENT Exam ENT Exam: Mucous Membranes Dry - Neck Exam Neck Exam: absent: Lymphadenopathy - Respiratory Exam Respiratory Exam: Decreased Breath Sounds - Cardiovascular Exam Cardiovascular Exam: REGULAR RHYTHM - GI/Abdominal Exam GI & Abdominal Exam: Distended - Rectal Exam Rectal Exam: Deferred - Exam Exam: NORMAL INSPECTION - Extremities Exam Extremities Exam: absent: Pedal Edema - Back Exam Back Exam: absent: CVA tenderness (L), CVA tenderness (R) - Neurological Exam Neurological Exam: Altered - Psychiatric Exam Psychiatric exam: Depressed - Skin Skin Exam: Dry Assessment and Plan (1) Acute respiratory failure with hypoxia and hypercarbia Status: Acute (2) Bacteremia Status: Acute (3) Diabetes mellitus type 2 in obese Status: Acute (4) Pleural effusion Status: Acute (5) Respiratory failure Status: Acute - Assessment and Plan (Free Text) Assessment: intubated in ICU sedated no new cultures will likely need trach and PEG
[2018-11-30] MEDS ORDERED: Propofol 10 mg/ml 1,000 MG/100 ML VIAL IV SCH (14:45)
--- NOTE | 2018-11-30 17:21 | CP.PCM.PN ---
<Pierce Yo - Last Filed: 11/30/18 22:48> Subjective - Date & Time of Evaluation Date of Evaluation: 11/30/18 Time of Evaluation: 22:48 - Subjective Subjective: Pierce Yo DO PGY1 - Internal Medicine [employer] - Cardiology Note for Dr. Kim Patient was seen and examined at bedside this morning Continues to be intubated + sedated Objective - Vital Signs/Intake and Output Vital Signs (last 24 hours): Temp Pulse Resp BP Pulse Ox 99.1 F 94 H 14 117/66 98 11/30/18 16:00 11/30/18 17:00 11/30/18 17:00 11/30/18 17:00 11/30/18 17:00 Intake and Output: 11/30/18 11/30/18 06:59 18:59 Intake Total 1400 1136 Output Total 550 Balance 850 1136 - Medications Medications: Current Medications Acetaminophen (Tylenol 650mg/20.3ml Solution Ud) 650 mg GT Q6 PRN PRN Reason: temp of > 100.4 F Last Admin: 11/24/18 17:57 Dose: 650 mg Acetaminophen (Tylenol 650mg/20.3ml Solution Ud) 650 mg NG Q4 PRN PRN Reason: fever 100.4 or above Albuterol/Ipratropium (Duoneb 3 Mg/0.5 Mg (3 Ml) Ud) 3 ml INH RQ4 [facility] Last Admin: 11/30/18 15:21 Dose: 3 ml Enoxaparin Sodium (Lovenox) 40 mg SC DAILY [facility]; Protocol Last Admin: 11/30/18 09:09 Dose: 40 mg Vancomycin HCl 1 gm/ Sodium (Chloride) 250 mls @ 166.667 mls/hr IVPB Q12 [facility]; Protocol Last Admin: 11/30/18 09:11 Dose: Not Given Piperacillin Sod/Tazobactam (Sod 3.375 gm/ Sodium Chloride) 100 mls @ 100 mls /hr IVPB Q6 [facility]; Protocol Last Admin: 11/30/18 16:00 Dose: 100 mls/hr Propofol (Diprivan) 1,000 mg in 100 mls @ 12.481 mls/hr IV .Q8H1M [facility]; Protocol Stop: 12/01/18 14:45 Last Admin: 11/30/18 15:01 Dose: 20 mcg/kg/min, 12.481 mls/hr Insulin Detemir (Levemir) 10 units SC [facility] Last Admin: 11/29/18 23:28 Dose: 10 u Insulin Human Regular (Humulin R) 0 units SC ACCU-CHECK [facility]; Protocol Last Admin: 11/30/18 17:12 Dose: Not Given Losartan Potassium (Cozaar) 25 mg PO DAILY [facility] Last Admin: 11/30/18 09:08 Dose: 25 mg Spironolactone (Aldactone) 12.5 mg PO DAILY [facility] - Labs Labs: 11/30/18 04:30 11/30/18 04:30 Physical Exam - Constitutional Additional comments: Intubated/ Sedated - Eye Exam Eye Exam: absent: Scleral icterus - ENT Exam Additional comments: ET tube in place - Neck Exam Additional comments: no JVD - Respiratory Exam Respiratory Exam: Decreased Breath Sounds. absent: Wheezes - Cardiovascular Exam Cardiovascular Exam: RRR (Heart sounds distant), +S1, +S2 - GI/Abdominal Exam GI & Abdominal Exam: Normal Bowel Sounds, Soft. absent: Tenderness - Neurological Exam Additional comments: Sedated - Psychiatric Exam Psychiatric exam: Normal Affect Assessment and Plan - Assessment and Plan (Free Text) Plan: Continues to show HD stability Consider switching from propofol to fentanyl 2/2 cardio suppressant properties. Continue monitoring <Douglas Kim - Last Filed: 12/04/18 22:06> Objective - Vital Signs/Intake and Output Vital Signs (last 24 hours): Temp Pulse Resp BP Pulse Ox 99.0 F 86 17 122/59 L 94 L 12/04/18 16:00 12/04/18 18:00 12/04/18 18:00 12/04/18 18:00 12/04/18 18:00 Intake and Output: 12/04/18 12/05/18 18:59 06:59 Intake Total 1050 Output Total 2024 Balance -975 - Medications Medications: Current Medications Acetaminophen (Tylenol 650mg/20.3ml Solution Ud) 650 mg GT Q6 PRN PRN Reason: temp of > 100.4 F Last Admin: 11/24/18 17:57 Dose: 650 mg Acetaminophen (Tylenol 650mg/20.3ml Solution Ud) 650 mg NG Q4 PRN PRN Reason: fever 100.4 or above Last Admin: 12/03/18 10:36 Dose: 650 mg Albuterol/Ipratropium (Duoneb 3 Mg/0.5 Mg (3 Ml) Ud) 3 ml INH RQ4 JEANA Last Admin: 12/04/18 19:08 Dose: 3 ml Enoxaparin Sodium (Lovenox) 40 mg SC DAILY JEANA; Protocol Last Admin: 12/04/18 08:52 Dose: 40 mg Furosemide (Lasix) 60 mg IV DAILY JEANA Last Admin: 12/04/18 08:51 Dose: 60 mg Vancomycin HCl 1 gm/ Sodium (Chloride) 250 mls @ 166.667 mls/hr IVPB Q12 JEANA; Protocol Last Admin: 12/04/18 21:28 Dose: 166.667 mls/hr Piperacillin Sod/Tazobactam (Sod 3.375 gm/ Sodium Chloride) 100 mls @ 100 mls/hr IVPB Q6 JEANA; Protocol Last Admin: 12/04/18 21:27 Dose: 100 mls/hr Insulin Detemir (Levemir) 10 units SC HS JEANA Last Admin: 12/04/18 21:29 Dose: 10 u Insulin Human Regular (Humulin R) 0 units SC ACCU-CHECK JEANA; Protocol Last Admin: 12/04/18 22:05 Dose: Not Given Lorazepam (Ativan) 1 mg IVP Q4 PRN PRN Reason: Agitation Last Admin: 12/01/18 15:30 Dose: 1 mg Losartan Potassium (Cozaar) 25 mg PO DAILY JEANA Last Admin: 12/04/18 16:21 Dose: Not Given Pantoprazole Sodium (Protonix Inj) 40 mg IVP DAILY [facility] Last Admin: 12/04/18 08:52 Dose: 40 mg Potassium Chloride (Potassium Chloride Oral Soln) 40 meq NG DAILY JEANA Last Admin: 12/04/18 16:21 Dose: Not Given Spironolactone (Aldactone) 12.5 mg PO DAILY JEANA - Labs Labs: 12/04/18 05:36 12/04/18 05:36 Attending/Attestation - Attestation I have personally seen and examined this patient.: Yes I have fully participated in the care of the patient.: Yes I have reviewed all pertinent clinical information, including history, physical exam and plan: Yes
[2018-11-30 19:09] LABS: ACETYLCHOLINE REC BIND AB <0.30 nmol/L
[2018-11-30] MEDS: Insulin Detemir 100 Units/ml Inj SC SCH (22:29)
[2018-12-01] MEDS: Piperacillin/Tazobact 3.375 GM in Sodium Chloride 0.9% 100 ML IVPB SCH ×4 (04:30→21:06)
[2018-12-01] MEDS: Albuterol-Ipratrop 3 mg / 0.5 (3 ml) UD INH SCH ×6 (04:59→23:48)
[2018-12-01 05:12] LABS: ABG ALLEN TEST YES; ARTERIAL BLOOD GAS HCO3 37.6 mmol/L (21-28); ARTERIAL BLOOD GAS O2 CAPACITY 12.5 mL/dL (16-24); ARTERIAL BLOOD GAS O2 CONTENT 12.5 ML/dL (15-23); ARTERIAL BLOOD GAS O2 SAT 99.9 % (95-98); ARTERIAL BLOOD GAS PCO2 56 mm/Hg (35-45); ARTERIAL BLOOD GAS PH 7.48 (7.35-7.45); ARTERIAL BLOOD GAS PO2 91 mm/Hg (80-100); ARTERIAL BLOOD GAS TCO2 43.4 mmol/L (22-28)
[2018-12-01 05:36] LABS: HEMOGLOBIN 9.5 g/dL (12.0-16.0); MEAN CELL VOLUME 83.6 fl (81.0-99.0); MEAN CORPUSCULAR HEMOGLOBIN 27.4 pg (27.0-31.0); MEAN CORPUSCULAR HGB CONC 32.8 g/dL (33.0-37.0); RBC 3.47 Mil/uL (3.80-5.20); WHITE BLOOD COUNT 3.6 K/uL (4.8-10.8)
[2018-12-01 06:00] LABS: ALB/GLOB RATIO 0.9 (1.0-2.1); ALBUMIN 2.8 g/dL (3.5-5.0); ALT/SGPT 29 U/L (9-52); AST/SGOT 35 U/L (14-36); BLOOD UREA NITROGEN 17 mg/dl (7-17); CALCIUM 9.1 mg/dL (8.4-10.2); GFR NON-AFRICAN AMERICAN > 60
[2018-12-01] MEDS: Insulin Regular 100 units/ml SC SCH ×4 (07:04→22:28)
--- NOTE | 2018-12-01 08:07 | CP.PCM.PN ---
<Elmira Russ - Last Filed: 12/01/18 10:31> Subjective - Date & Time of Evaluation Date of Evaluation: 12/01/18 Time of Evaluation: 08:07 - Subjective Subjective: No acute overnight events. Pt seen and examined by bedside this AM. Pt remains intubated, ETT and OGT in place. Pt remains afebrile. Objective - Vital Signs/Intake and Output Vital Signs (last 24 hours): Temp Pulse Resp BP Pulse Ox 99.1 F 69 12 129/58 L 98 12/01/18 04:00 12/01/18 07:00 12/01/18 07:00 12/01/18 07:00 12/01/18 07:00 Intake and Output: 12/01/18 12/01/18 06:59 18:59 Intake Total 1264 Output Total 500 Balance 764 - Medications Medications: Current Medications Acetaminophen (Tylenol 650mg/20.3ml Solution Ud) 650 mg GT Q6 PRN PRN Reason: temp of > 100.4 F Last Admin: 11/24/18 17:57 Dose: 650 mg Acetaminophen (Tylenol 650mg/20.3ml Solution Ud) 650 mg NG Q4 PRN PRN Reason: fever 100.4 or above Albuterol/Ipratropium (Duoneb 3 Mg/0.5 Mg (3 Ml) Ud) 3 ml INH RQ4 [facility] Last Admin: 12/01/18 07:56 Dose: 3 ml Enoxaparin Sodium (Lovenox) 40 mg SC DAILY [facility]; Protocol Last Admin: 11/30/18 09:09 Dose: 40 mg Vancomycin HCl 1 gm/ Sodium (Chloride) 250 mls @ 166.667 mls/hr IVPB Q12 [facility]; Protocol Last Admin: 11/30/18 09:11 Dose: Not Given Piperacillin Sod/Tazobactam (Sod 3.375 gm/ Sodium Chloride) 100 mls @ 100 mls/hr IVPB Q6 [facility]; Protocol Last Admin: 12/01/18 04:30 Dose: 100 mls/hr Propofol (Diprivan) 1,000 mg in 100 mls @ 12.481 mls/hr IV .Q8H1M [facility]; Protocol Stop: 12/01/18 14:45 Last Admin: 11/30/18 23:45 Dose: 20 mcg/kg/min, 12.481 mls/hr Potassium Chloride (Potassium Chloride 20 Meq/100 Ml) 100 mls @ 50 mls/hr IVPB Q2 [facility] Stop: 12/01/18 13:59 Insulin Detemir (Levemir) 10 units SC [facility] Last Admin: 11/30/18 22:29 Dose: 10 u Insulin Human Regular (Humulin R) 0 units SC ACCU-CHECK [facility]; Protocol Last Admin: 12/01/18 07:04 Dose: Not Given Losartan Potassium (Cozaar) 25 mg PO DAILY [facility] Last Admin: 11/30/18 09:08 Dose: 25 mg Spironolactone (Aldactone) 12.5 mg PO DAILY [facility] - Labs Labs: 12/01/18 04:30 12/01/18 04:30 - Constitutional Appears: Other (ET and OGT in ) - Head Exam Head Exam: NORMAL INSPECTION - Eye Exam Eye Exam: EOMI - ENT Exam ENT Exam: Mucous Membranes Moist - Respiratory Exam Respiratory Exam: NORMAL BREATHING PATTERN (course breath sounds b/l ) - Cardiovascular Exam Cardiovascular Exam: REGULAR RHYTHM, +S1, +S2 - GI/Abdominal Exam GI & Abdominal Exam: Soft, Hyperactive Bowel Sounds. absent: Tenderness - Extremities Exam Additional comments: SCDs on Edema noted in the upper ext b/l, more in the hands Sacral edema noted - Neurological Exam Additional comments: Responds to physical stimuli Assessment and Plan (1) Bacteremia Status: Acute (2) Sepsis Status: Acute (3) CHF (congestive heart failure) Status: Chronic (4) Respiratory failure Status: Acute (5) Anemia Status: Chronic - Assessment and Plan (Free Text) Assessment: Assessment/Plan: 83 YO female with PMHx of HTN, CHF (w/ pacemaker), DM, hypothyroidism, admitted due to recurrent hypercapneic respiratory failure. Patient brought to ED on 11/22/18 for [facility] due to AMS, intubated and admitted to ICU. -Recurrent hypercapneic respiratory failure s/p intubation and on MV on 11/22/18 pulmonary on board, CXR appreciated (11/30) sig for L pleural effusion, small Intubated will decrease FIO2 today, sedated on propofol Wean off when tolerating in preparation of extubation c/w with IV abx--currently Vanc is on hold due to elevated levels in blood, will resume when okay per ID Will need TRACH -CHF, pacemaker, chronic -Bacteremia, sepsis Blood cx 11/22/18: Gram positive cocci in pairs ID on board BCx 11/24 neg c/w Vancomycin and Zosyn (vanc on hold for now) -Anemia, Normocytic likely acute on chronic No acute source of GI bleed Pleural effusion Noted on CXR, L sided small IV lasix -DVT prophylx <Kenneth Le - Last Filed: 12/01/18 17:15> Objective - Vital Signs/Intake and Output Vital Signs (last 24 hours): Temp Pulse Resp BP Pulse Ox 98.8 F 84 12 130/63 99 12/01/18 16:00 12/01/18 16:00 12/01/18 16:00 12/01/18 16:00 12/01/18 16:00 Intake and Output: 12/01/18 12/01/18 06:59 18:59 Intake Total 1264 747.2 Output Total 500 Balance 764 747.2 - Medications Medications: Current Medications Acetaminophen (Tylenol 650mg/20.3ml Solution Ud) 650 mg GT Q6 PRN PRN Reason: temp of > 100.4 F Last Admin: 11/24/18 17:57 Dose: 650 mg Acetaminophen (Tylenol 650mg/20.3ml Solution Ud) 650 mg NG Q4 PRN PRN Reason: fever 100.4 or above Acetazolamide (Diamox 500 Mg Inj) 250 mg IV Q12 [facility] Stop: 12/03/18 09:01 Albuterol/Ipratropium (Duoneb 3 Mg/0.5 Mg (3 Ml) Ud) 3 ml INH RQ4 [facility] Last Admin: 12/01/18 11:05 Dose: 3 ml Enoxaparin Sodium (Lovenox) 40 mg SC DAILY [facility]; Protocol Last Admin: 12/01/18 08:42 Dose: 40 mg Vancomycin HCl 1 gm/ Sodium (Chloride) 250 mls @ 166.667 mls/hr IVPB Q12 [facility]; Protocol Last Admin: 11/30/18 09:11 Dose: Not Given Piperacillin Sod/Tazobactam (Sod 3.375 gm/ Sodium Chloride) 100 mls @ 100 mls/hr IVPB Q6 [facility]; Protocol Last Admin: 12/01/18 16:19 Dose: 100 mls/hr Insulin Detemir (Levemir) 10 units SC [facility] Last Admin: 11/30/18 22:29 Dose: 10 u Insulin Human Regular (Humulin R) 0 units SC ACCU-CHECK [facility]; Protocol Last Admin: 12/01/18 16:27 Dose: Not Given Lorazepam (Ativan) 1 mg IVP Q4 PRN PRN Reason: Agitation Last Admin: 12/01/18 15:30 Dose: 1 mg Losartan Potassium (Cozaar) 25 mg PO DAILY [facility] Last Admin: 12/01/18 08:43 Dose: 25 mg Pantoprazole Sodium (Protonix Inj) 40 mg IVP DAILY [facility] Last Admin: 12/01/18 14:28 Dose: 40 mg Spironolactone (Aldactone) 12.5 mg PO DAILY [facility] - Labs Labs: 12/01/18 04:30 12/01/18 04:30 Assessment and Plan (1) Respiratory failure Status: Acute (2) Anemia Status: Chronic Attending/Attestation - Attestation I have personally seen and examined this patient.: Yes I have fully participated in the care of the patient.: Yes I have reviewed all pertinent clinical information, including history, physical exam and plan: Yes
[2018-12-01] MEDS: Enoxaparin 40 mg Syringe SC SCH (08:42)
--- NOTE | 2018-12-01 09:07 | CP.PCM.PN ---
Subjective - Date & Time of Evaluation Date of Evaluation: 12/01/18 Time of Evaluation: 09:07 - Subjective Subjective: clinically nunchanged still on the vent Objective - Vital Signs/Intake and Output Vital Signs (last 24 hours): Temp Pulse Resp BP Pulse Ox 98.4 F 70 12 126/53 L 95 12/01/18 08:00 12/01/18 08:43 12/01/18 08:00 12/01/18 08:43 12/01/18 08:00 Intake and Output: 12/01/18 12/01/18 06:59 18:59 Intake Total 1264 Output Total 500 Balance 764 - Medications Medications: Current Medications Acetaminophen (Tylenol 650mg/20.3ml Solution Ud) 650 mg GT Q6 PRN PRN Reason: temp of > 100.4 F Last Admin: 11/24/18 17:57 Dose: 650 mg Acetaminophen (Tylenol 650mg/20.3ml Solution Ud) 650 mg NG Q4 PRN PRN Reason: fever 100.4 or above Albuterol/Ipratropium (Duoneb 3 Mg/0.5 Mg (3 Ml) Ud) 3 ml INH RQ4 [facility] Last Admin: 12/01/18 07:56 Dose: 3 ml Enoxaparin Sodium (Lovenox) 40 mg SC DAILY [facility]; Protocol Last Admin: 12/01/18 08:42 Dose: 40 mg Vancomycin HCl 1 gm/ Sodium (Chloride) 250 mls @ 166.667 mls/hr IVPB Q12 [facility]; Protocol Last Admin: 11/30/18 09:11 Dose: Not Given Piperacillin Sod/Tazobactam (Sod 3.375 gm/ Sodium Chloride) 100 mls @ 100 mls/hr IVPB Q6 [facility]; Protocol Last Admin: 12/01/18 04:30 Dose: 100 mls/hr Propofol (Diprivan) 1,000 mg in 100 mls @ 12.481 mls/hr IV .Q8H1M [facility]; Protocol Stop: 12/01/18 14:45 Last Admin: 11/30/18 23:45 Dose: 20 mcg/kg/min, 12.481 mls/hr Potassium Chloride (Potassium Chloride 20 Meq/100 Ml) 100 mls @ 50 mls/hr IVPB Q2 [facility] Stop: 12/01/18 13:59 Insulin Detemir (Levemir) 10 units SC [facility] Last Admin: 11/30/18 22:29 Dose: 10 u Insulin Human Regular (Humulin R) 0 units SC ACCU-CHECK [facility]; Protocol Last Admin: 12/01/18 07:04 Dose: Not Given Losartan Potassium (Cozaar) 25 mg PO DAILY [facility] Last Admin: 12/01/18 08:43 Dose: 25 mg Spironolactone (Aldactone) 12.5 mg PO DAILY [facility] - Labs Labs: 12/01/18 04:30 12/01/18 04:30 - Constitutional Appears: Chronically Ill - Head Exam Head Exam: ATRAUMATIC, NORMAL INSPECTION, NORMOCEPHALIC - Eye Exam Eye Exam: EOMI, Normal appearance, PERRL Pupil Exam: NORMAL ACCOMODATION, PERRL - ENT Exam ENT Exam: Mucous Membranes Moist, Normal Exam - Neck Exam Neck Exam: Full ROM, Normal Inspection. absent: Lymphadenopathy - Respiratory Exam Respiratory Exam: Rales - Cardiovascular Exam Cardiovascular Exam: REGULAR RHYTHM, +S1, +S2. absent: Murmur - GI/Abdominal Exam GI & Abdominal Exam: Soft, Normal Bowel Sounds. absent: Tenderness - Rectal Exam Rectal Exam: NORMAL INSPECTION - Extremities Exam Extremities Exam: Full ROM, Normal Capillary Refill, Normal Inspection. absent: Joint Swelling, Pedal Edema - Back Exam Back Exam: NORMAL INSPECTION - Neurological Exam Neurological Exam: Alert, Awake, CN II-XII Intact, Normal Gait, Oriented x3 - Psychiatric Exam Psychiatric exam: Normal Affect, Normal Mood - Skin Skin Exam: Dry, Intact, Normal Color, Warm - Additional Findings Additional findings: cxr-pulmonary congestion with pleural effusion,ett in place Assessment and Plan - Assessment and Plan (Free Text) Assessment: hypercapneic resp failure chf pleural effusion Plan: iv lasix today continue [facility] care
[2018-12-01] MEDS: Potassium Chloride 20 mEq 100 ML IVPB SCH ×2 (10:00→12:01)
--- NOTE | 2018-12-01 10:45 | RAD ---
Date of service: 12/01/2018 HISTORY: Pt intubated COMPARISON: Chest radiograph dated 11/30/2018. FINDINGS: LUNGS: Pulmonary vascular congestion. Bibasilar atelectasis. PLEURA: Small right pleural effusion. No appreciable pneumothorax. CARDIOVASCULAR: Left subclavian access AICD/pacemaker redemonstrated. Aortic atherosclerotic calcifications. Cardiomediastinal silhouette stably enlarged. OSSEOUS STRUCTURES: Unchanged. VISUALIZED UPPER ABDOMEN: Normal. OTHER FINDINGS: Endotracheal tube with tip at the level of the clavicular heads. Enteric tube, unchanged. Right upper extremity PICC, unchanged. IMPRESSION: Persistently malpositioned endotracheal tube. Advancement is recommended. Otherwise, stable tubes and lines. Stable pulmonary vascular congestion and small right pleural effusion. No significant interval change.
--- NOTE | 2018-12-01 11:02 | CP.PCM.PN ---
<Pierce Yo - Last Filed: 12/01/18 20:52> Subjective - Date & Time of Evaluation Date of Evaluation: 12/01/18 Time of Evaluation: 20:52 - Subjective Subjective: Pierce Yo DO PGY1 - Internal Medicine Supervisor [employer] - Cardiology Note for Dr. Kim Patient was seen and evaluated at bedside this morning. Continues to be intubated and sedated. Vital signs reviewed patient hemodynamically stable, mildly hypertensive. Blood gas continues to show respiratory acidosis. Objective - Vital Signs/Intake and Output Vital Signs (last 24 hours): Temp Pulse Resp BP Pulse Ox 98.4 F 70 12 106/45 L 100 12/01/18 08:00 12/01/18 10:00 12/01/18 10:00 12/01/18 10:00 12/01/18 10:00 Intake and Output: 12/01/18 12/01/18 06:59 18:59 Intake Total 1264 365 Output Total 500 Balance 764 365 - Medications Medications: Current Medications Acetaminophen (Tylenol 650mg/20.3ml Solution Ud) 650 mg GT Q6 PRN PRN Reason: temp of > 100.4 F Last Admin: 11/24/18 17:57 Dose: 650 mg Acetaminophen (Tylenol 650mg/20.3ml Solution Ud) 650 mg NG Q4 PRN PRN Reason: fever 100.4 or above Albuterol/Ipratropium (Duoneb 3 Mg/0.5 Mg (3 Ml) Ud) 3 ml INH RQ4 [facility] Last Admin: 12/01/18 07:56 Dose: 3 ml Enoxaparin Sodium (Lovenox) 40 mg SC DAILY [facility]; Protocol Last Admin: 12/01/18 08:42 Dose: 40 mg Vancomycin HCl 1 gm/ Sodium (Chloride) 250 mls @ 166.667 mls/hr IVPB Q12 [facility]; Protocol Last Admin: 11/30/18 09:11 Dose: Not Given Piperacillin Sod/Tazobactam (Sod 3.375 gm/ Sodium Chloride) 100 mls @ 100 mls/hr IVPB Q6 [facility]; Protocol Last Admin: 12/01/18 04:30 Dose: 100 mls/hr Propofol (Diprivan) 1,000 mg in 100 mls @ 12.481 mls/hr IV .Q8H1M [facility]; Protocol Stop: 12/01/18 14:45 Last Admin: 11/30/18 23:45 Dose: 20 mcg/kg/min, 12.481 mls/hr Potassium Chloride (Potassium Chloride 20 Meq/100 Ml) 100 mls @ 50 mls/hr IVPB Q2 [facility] Stop: 12/01/18 13:59 Last Admin: 12/01/18 10:00 Dose: 50 mls/hr Insulin Detemir (Levemir) 10 units SC HS [facility] Last Admin: 11/30/18 22:29 Dose: 10 u Insulin Human Regular (Humulin R) 0 units SC ACCU-CHECK [facility]; Protocol Last Admin: 12/01/18 07:04 Dose: Not Given Losartan Potassium (Cozaar) 25 mg PO DAILY [facility] Last Admin: 12/01/18 08:43 Dose: 25 mg Spironolactone (Aldactone) 12.5 mg PO DAILY [facility] - Labs Labs: 12/01/18 04:30 12/01/18 04:30 - Constitutional Appears: Non-toxic, No Acute Distress, Other (sedated) - Eye Exam Eye Exam: PERRL. absent: Scleral icterus - ENT Exam Additional comments: ET tube in place - Respiratory Exam Respiratory Exam: Clear to Ausculation Bilateral, NORMAL BREATHING PATTERN - Cardiovascular Exam Cardiovascular Exam: RRR, +S1, +S2. absent: Murmur - GI/Abdominal Exam GI & Abdominal Exam: Soft - Extremities Exam Extremities Exam: Pedal Edema Additional comments: edema in bl ue - Neurological Exam Additional comments: intubated - Skin Skin Exam: Dry, Normal Color, Warm Assessment and Plan - Assessment and Plan (Free Text) Assessment: Will plan for [facility] Continue Cozaar 25 daily,Continue Aldactone 12.5 daily Further recommendations as per Dr. Kim Pending. <Douglas Kim - Last Filed: 12/02/18 20:40> Objective - Vital Signs/Intake and Output Vital Signs (last 24 hours): Temp Pulse Resp BP Pulse Ox 100.2 F H 91 H 11 L 95/51 L 98 12/02/18 18:00 12/02/18 18:00 12/02/18 18:00 12/02/18 18:00 12/02/18 18:00 Intake and Output: 12/02/18 12/03/18 18:59 06:59 Intake Total 1004 Output Total 1600 Balance -596 - Medications Medications: Current Medications Acetaminophen (Tylenol 650mg/20.3ml Solution Ud) 650 mg GT Q6 PRN PRN Reason: temp of > 100.4 F Last Admin: 11/24/18 17:57 Dose: 650 mg Acetaminophen (Tylenol 650mg/20.3ml Solution Ud) 650 mg NG Q4 PRN PRN Reason: fever 100.4 or above Acetazolamide (Diamox 500 Mg Inj) 250 mg IV Q12 [facility] Stop: 12/03/18 09:01 Last Admin: 12/02/18 20:30 Dose: 250 mg Albuterol/Ipratropium (Duoneb 3 Mg/0.5 Mg (3 Ml) Ud) 3 ml INH RQ4 [facility] Last Admin: 12/02/18 19:41 Dose: 3 ml Enoxaparin Sodium (Lovenox) 40 mg SC DAILY [facility]; Protocol Last Admin: 12/02/18 08:38 Dose: 40 mg Furosemide (Lasix) 60 mg IV DAILY [facility] Last Admin: 12/02/18 09:30 Dose: 60 mg Vancomycin HCl 1 gm/ Sodium (Chloride) 250 mls @ 166.667 mls/hr IVPB Q12 [facility]; Protocol Last Admin: 12/02/18 20:29 Dose: 166.667 mls/hr Piperacillin Sod/Tazobactam (Sod 3.375 gm/ Sodium Chloride) 100 mls @ 100 mls/hr IVPB Q6 [facility]; Protocol Last Admin: 12/02/18 15:35 Dose: 100 mls/hr Insulin Detemir (Levemir) 10 units SC [facility] Last Admin: 12/01/18 22:27 Dose: 10 u Insulin Human Regular (Humulin R) 0 units SC ACCU-CHECK [facility]; Protocol Last Admin: 12/02/18 16:57 Dose: Not Given Lorazepam (Ativan) 1 mg IVP Q4 PRN PRN Reason: Agitation Last Admin: 12/01/18 15:30 Dose: 1 mg Losartan Potassium (Cozaar) 25 mg PO DAILY [facility] Last Admin: 12/02/18 08:38 Dose: 25 mg Pantoprazole Sodium (Protonix Inj) 40 mg IVP DAILY [facility] Last Admin: 12/02/18 08:37 Dose: 40 mg Potassium Chloride (Potassium Chloride Oral Soln) 40 meq NG DAILY [facility] Spironolactone (Aldactone) 12.5 mg PO DAILY [facility] - Labs Labs: 12/02/18 05:05 12/02/18 05:05 Attending/Attestation - Attestation I have personally seen and examined this patient.: Yes I have fully participated in the care of the patient.: Yes I have reviewed all pertinent clinical information, including history, physical exam and plan: Yes Notes (Text): 12/02/18 20:39 will need invasive hemodynamic monitoring for assesement of recurrent flash pulmonary edema and hypercardic respiratory failure
--- NOTE | 2018-12-01 12:28 | CP.PCM.PN ---
Subjective - Date & Time of Evaluation Date of Evaluation: 12/01/18 Time of Evaluation: 08:00 - Subjective Subjective: intubated afebrile NAD no new psitive cultures may need trach /PEG Objective - Vital Signs/Intake and Output Vital Signs (last 24 hours): Temp Pulse Resp BP Pulse Ox 96.6 F L 82 12 119/54 L 98 12/01/18 12:00 12/01/18 12:00 12/01/18 12:00 12/01/18 12:00 12/01/18 12:00 Intake and Output: 12/01/18 12/01/18 06:59 18:59 Intake Total 1264 365 Output Total 500 Balance 764 365 - Medications Medications: Current Medications Acetaminophen (Tylenol 650mg/20.3ml Solution Ud) 650 mg GT Q6 PRN PRN Reason: temp of > 100.4 F Last Admin: 11/24/18 17:57 Dose: 650 mg Acetaminophen (Tylenol 650mg/20.3ml Solution Ud) 650 mg NG Q4 PRN PRN Reason: fever 100.4 or above Albuterol/Ipratropium (Duoneb 3 Mg/0.5 Mg (3 Ml) Ud) 3 ml INH RQ4 [facility] Last Admin: 12/01/18 11:05 Dose: 3 ml Enoxaparin Sodium (Lovenox) 40 mg SC DAILY [facility]; Protocol Last Admin: 12/01/18 08:42 Dose: 40 mg Vancomycin HCl 1 gm/ Sodium (Chloride) 250 mls @ 166.667 mls/hr IVPB Q12 [facility]; Protocol Last Admin: 11/30/18 09:11 Dose: Not Given Piperacillin Sod/Tazobactam (Sod 3.375 gm/ Sodium Chloride) 100 mls @ 100 mls/hr IVPB Q6 [facility]; Protocol Last Admin: 12/01/18 04:30 Dose: 100 mls/hr Propofol (Diprivan) 1,000 mg in 100 mls @ 12.481 mls/hr IV .Q8H1M [facility]; Protocol Stop: 12/01/18 14:45 Last Admin: 11/30/18 23:45 Dose: 20 mcg/kg/min, 12.481 mls/hr Potassium Chloride (Potassium Chloride 20 Meq/100 Ml) 100 mls @ 50 mls/hr IVPB Q2 [facility] Stop: 12/01/18 13:59 Last Admin: 12/01/18 12:01 Dose: 50 mls/hr Insulin Detemir (Levemir) 10 units SC [facility] Last Admin: 11/30/18 22:29 Dose: 10 u Insulin Human Regular (Humulin R) 0 units SC ACCU-CHECK [facility]; Protocol Last Admin: 12/01/18 12:10 Dose: Not Given Losartan Potassium (Cozaar) 25 mg PO DAILY [facility] Last Admin: 12/01/18 08:43 Dose: 25 mg Spironolactone (Aldactone) 12.5 mg PO DAILY [facility] - Labs Labs: 12/01/18 04:30 12/01/18 04:30 - Constitutional Appears: Chronically Ill - Head Exam Head Exam: absent: NORMOCEPHALIC - Eye Exam Eye Exam: absent: Scleral icterus - ENT Exam ENT Exam: Mucous Membranes Dry - Neck Exam Neck Exam: absent: Lymphadenopathy - Respiratory Exam Respiratory Exam: Decreased Breath Sounds - Cardiovascular Exam Cardiovascular Exam: REGULAR RHYTHM - GI/Abdominal Exam GI & Abdominal Exam: Distended, Soft - Rectal Exam Rectal Exam: Deferred - Exam Exam: NORMAL INSPECTION - Extremities Exam Extremities Exam: absent: Pedal Edema - Back Exam Back Exam: absent: CVA tenderness (L), CVA tenderness (R) - Neurological Exam Neurological Exam: Altered Assessment and Plan (1) Acute respiratory failure with hypoxia and hypercarbia Status: Acute (2) Bacteremia Status: Acute (3) Diabetes mellitus type 2 in obese Status: Acute (4) Pleural effusion Status: Acute (5) Respiratory failure Status: Acute - Assessment and Plan (Free Text) Assessment: supportive care/ IV antibiotics
--- NOTE | 2018-12-01 13:21 | CP.CCUPN ---
CCU Subjective - Physician Review Subjective (Free Text): 12/01/18 13:12 The patient was Seen/interviewed and examined by me at the bedside during ICU round, Medical records reviewed and Management issues were discussed and formulated with the house staff. Events reviewed 83 Years old Female with PMHx of CHF, Diverticulitis, HTN, Hypothyroidism, Pneumonia Who initially presents to Emergency department via EMS from assisted for an evaluation of increased lethargy and decreased mentation for 1 day. Patient was recently discharged from [facility] on 11/20/18 status post sepsis, pneumonia, and UTI. She received ABX in assisted and IV fluid challenge in field by paramedics. She was admitted to the ICU for acute Hypercapneic Resp Failure secondary to bilateral Pneumonia and COPD Exacerbation Currently sedated and orally intubated, Patient on ventilator, on PRVC TV 400, RR 12, FIO2 50% No Vasopressors Afebrile, On Antibiotics with IV Vancomycin and Zosyn Blood C/S pos Coagulase negative Staph Most recent Blood C/S negative NSR on the monitor Last 24H I&O 2498/2700 This morning labs revealed No Leucocytosis 3.6, normal renal function BUN/Cr 17/0.8 Hypokalemia 3.5, K suplemented Today CXR Stable Bilateral infilterate, small effusion, pulmonary vascular congesions Will give extra 20 mg IV Lasix Also Diamox 250 mg IV Q 12H x 4 doses ET advanced ET tube 2 ccm down Critical Care Time Spent (in minutes): 42 CCU Objective - Vital Signs / Intake & Output Vital Signs (Last 4 hours): Vital Signs Temp Pulse Resp BP Pulse Ox 12/01/18 12:00 96.6 F L 82 12 119/54 L 98 12/01/18 11:00 88 12 119/52 L 95 12/01/18 10:00 70 12 106/45 L 100 Intake and Output (Last 8hrs): Intake & Output 11/30/18 12/01/18 12/01/18 22:59 06:59 14:59 Intake Total 984 776 365 Output Total 2200 500 Balance -1216 276 365 Weight 220 lb 9.6 oz Intake: IV 104 196 Intake, Piggyback 200 100 100 Tube Feeding 280 280 115 Free Water Flush 400 200 150 Output: Gastric Amount 0 Stomach 0 Urine 2200 500 Urethral (Arias) 2200 500 Other: # Bowel Movements 0 0 - Physical Exam Head: Positive for: Atraumatic, Normocephalic Pupils: Positive for: PERRL Conjunctiva: Positive for: Normal Mouth: Positive for: Moist Mucous Membranes Nose (External): Positive for: Atraumatic Neck: Positive for: Normal Range of Motion Respiratory/Chest: Positive for: Rhonchi Cardiovascular: Positive for: Regular Rate and Rhythm Abdomen: Positive for: Normal Bowel Sounds Upper Extremity: Positive for: Normal Inspection Lower Extremity: Positive for: Normal Inspection Neurological: Positive for: Other (on ventilator, sedated) - Medications Active Medications: Active Medications Generic Name Dose Route Start Last Admin Trade Name Freq PRN Reason Stop Dose Admin Acetaminophen 650 mg 11/23/18 01:23 11/24/18 17:57 Tylenol 650mg/20.3ml Solution Ud GT 650 mg Q6 PRN Administration temp of > 100.4 F Acetaminophen 650 mg 11/24/18 17:44 Tylenol 650mg/20.3ml Solution Ud NG Q4 PRN fever 100.4 or above Albuterol/Ipratropium 3 ml 11/25/18 16:00 12/01/18 11:05 Duoneb 3 Mg/0.5 Mg (3 Ml) Ud INH 3 ml RQ4 JEANA Administration Enoxaparin Sodium 40 mg 11/23/18 09:00 12/01/18 08:42 Lovenox SC 40 mg DAILY JEANA Administration Protocol Vancomycin HCl 1 gm/ Sodium 250 mls @ 166.667 mls/hr 11/23/18 09:00 11/30/18 09:11 Chloride IVPB Not Given Q12 JEANA Protocol Piperacillin Sod/Tazobactam 100 mls @ 100 mls/hr 11/23/18 10:00 12/01/18 04:30 Sod 3.375 gm/ Sodium Chloride IVPB 100 mls/hr Q6 JEANA Administration Protocol Propofol 1,000 mg in 100 mls @ 12.481 mls/hr 11/30/18 15:40 11/30/18 23:45 Diprivan IV 12/01/18 14:45 20 mcg/kg/min .Q8H1M JEANA 12.481 mls/hr Administration Protocol 20 MCG/KG/MIN Potassium Chloride 100 mls @ 50 mls/hr 12/01/18 10:00 12/01/18 12:01 Potassium Chloride 20 Meq/100 Ml IVPB 12/01/18 13:59 50 mls/hr Q2 JEANA Administration Insulin Detemir 10 units 11/22/18 22:00 11/30/18 22:29 Levemir SC 10 u HS JEANA Administration Insulin Human Regular 0 units 11/23/18 12:00 12/01/18 12:10 Humulin R SC Not Given ACCU-CHECK JEANA Protocol Losartan Potassium 25 mg 11/23/18 09:00 12/01/18 08:43 Cozaar PO 25 mg DAILY JEANA Administration Spironolactone 12.5 mg 11/23/18 09:00 Aldactone PO DAILY JEANA - Patient Studies Lab Studies: Lab Studies 12/01/18 12/01/18 12/01/18 Range/Units 11:39 07:01 04:58 WBC (4.8-10.8) K/uL RBC (3.80-5.20) Mil/uL Hgb (12.0-16.0) g/dL Hct (34.0-47.0) % MCV (81.0-99.0) fl MCH (27.0-31.0) pg MCHC (33.0-37.0) g/dL RDW (11.5-14.5) % Plt Count (130-400) K/uL pCO2 56 H (35-45) mm/Hg pO2 91 (80-100) mm/Hg HCO3 37.6 H (21-28) mmol/L ABG pH 7.48 H (7.35-7.45) ABG Total CO2 43.4 H (22-28) mmol/L ABG O2 Saturation 99.9 H (95-98) % ABG O2 Content 12.5 L (15-23) ML/dL ABG Base Excess 16.2 H (-2.0-3.0) mmol/L ABG Hemoglobin 9.0 L (11.7-17.4) g/dL ABG Carboxyhemoglobin 1.7 H (0.5-1.5) % POC ABG HHb (Measured) 0.1 (0.0-5.0) % ABG Methemoglobin 0.7 (0.0-3.0) % ABG O2 Capacity 12.5 L (16-24) mL/dL Favian Test Yes A-a O2 Difference 267.0 mm/Hg Hgb O2 Saturation 97.5 (95.0-98.0) % Vent Mode A/c Mechanical Rate 12 FiO2 60.0 % Tidal Volume 400 PEEP 5 Sodium (132-148) mmol/l Potassium (3.6-5.0) MMOL/L Chloride (98-107) mmol/L Carbon Dioxide (22-30) mmol/L Anion Gap (10-20) BUN (7-17) mg/dl Creatinine (0.7-1.2) mg/dl Est GFR ( Amer) Est GFR (Non-Af Amer) POC Glucose (mg/dL) 112 H 105 (65-110) mg/dL Random Glucose (65-105) mg/dL Calcium (8.4-10.2) mg/dL Total Bilirubin (0.2-1.3) mg/dl AST (14-36) U/L ALT (9-52) U/L Alkaline Phosphatase (38-126) U/L Total Protein (6.3-8.2) G/DL Albumin (3.5-5.0) g/dL Globulin (2.2-3.9) gm/dL Albumin/Globulin Ratio (1.0-2.1) Acetylchol Rcpt Bind Ab nmol/L 12/01/18 12/01/18 11/30/18 Range/Units 04:30 04:30 20:32 WBC 3.6 L (4.8-10.8) K/uL RBC 3.47 L (3.80-5.20) Mil/uL Hgb 9.5 L (12.0-16.0) g/dL Hct 29.0 L (34.0-47.0) % MCV 83.6 (81.0-99.0) fl MCH 27.4 (27.0-31.0) pg MCHC 32.8 L (33.0-37.0) g/dL RDW 21.0 H (11.5-14.5) % Plt Count 220 (130-400) K/uL pCO2 (35-45) mm/Hg pO2 (80-100) mm/Hg HCO3 (21-28) mmol/L ABG pH (7.35-7.45) ABG Total CO2 (22-28) mmol/L ABG O2 Saturation (95-98) % ABG O2 Content (15-23) ML/dL ABG Base Excess (-2.0-3.0) mmol/L ABG Hemoglobin (11.7-17.4) g/dL ABG Carboxyhemoglobin (0.5-1.5) % POC ABG HHb (Measured) (0.0-5.0) % ABG Methemoglobin (0.0-3.0) % ABG O2 Capacity (16-24) mL/dL Favian Test A-a O2 Difference mm/Hg Hgb O2 Saturation (95.0-98.0) % Vent Mode Mechanical Rate FiO2 % Tidal Volume PEEP Sodium 141 (132-148) mmol/l Potassium 3.5 L (3.6-5.0) MMOL/L Chloride 97 L (98-107) mmol/L Carbon Dioxide 41 H* (22-30) mmol/L Anion Gap 7 L (10-20) BUN 17 (7-17) mg/dl Creatinine 0.8 (0.7-1.2) mg/dl Est GFR ( Amer) > 60 Est GFR (Non-Af Amer) > 60 POC Glucose (mg/dL) 229 H (65-110) mg/dL Random Glucose 118 H (65-105) mg/dL Calcium 9.1 (8.4-10.2) mg/dL Total Bilirubin 0.3 (0.2-1.3) mg/dl AST 35 (14-36) U/L ALT 29 (9-52) U/L Alkaline Phosphatase 66 (38-126) U/L Total Protein 5.9 L (6.3-8.2) G/DL Albumin 2.8 L (3.5-5.0) g/dL Globulin 3.1 (2.2-3.9) gm/dL Albumin/Globulin Ratio 0.9 L (1.0-2.1) Acetylchol Rcpt Bind Ab nmol/L 11/30/18 11/25/18 Range/Units 16:56 14:45 WBC (4.8-10.8) K/uL RBC (3.80-5.20) Mil/uL Hgb (12.0-16.0) g/dL Hct (34.0-47.0) % MCV (81.0-99.0) fl MCH (27.0-31.0) pg MCHC (33.0-37.0) g/dL RDW (11.5-14.5) % Plt Count (130-400) K/uL pCO2 (35-45) mm/Hg pO2 (80-100) mm/Hg HCO3 (21-28) mmol/L ABG pH (7.35-7.45) ABG Total CO2 (22-28) mmol/L ABG O2 Saturation (95-98) % ABG O2 Content (15-23) ML/dL ABG Base Excess (-2.0-3.0) mmol/L ABG Hemoglobin (11.7-17.4) g/dL ABG Carboxyhemoglobin (0.5-1.5) % POC ABG HHb (Measured) (0.0-5.0) % ABG Methemoglobin (0.0-3.0) % ABG O2 Capacity (16-24) mL/dL Favian Test A-a O2 Difference mm/Hg Hgb O2 Saturation (95.0-98.0) % Vent Mode Mechanical Rate FiO2 % Tidal Volume PEEP Sodium (132-148) mmol/l Potassium (3.6-5.0) MMOL/L Chloride (98-107) mmol/L Carbon Dioxide (22-30) mmol/L Anion Gap (10-20) BUN (7-17) mg/dl Creatinine (0.7-1.2) mg/dl Est GFR ( Amer) Est GFR (Non-Af Amer) POC Glucose (mg/dL) 100 (65-110) mg/dL Random Glucose (65-105) mg/dL Calcium (8.4-10.2) mg/dL Total Bilirubin (0.2-1.3) mg/dl AST (14-36) U/L ALT (9-52) U/L Alkaline Phosphatase (38-126) U/L Total Protein (6.3-8.2) G/DL Albumin (3.5-5.0) g/dL Globulin (2.2-3.9) gm/dL Albumin/Globulin Ratio (1.0-2.1) Acetylchol Rcpt Bind Ab <0.30 nmol/L Laboratory Results - last 24 hr 11/25/18 11/30/18 11/30/18 14:45 16:56 20:32 WBC RBC Hgb Hct MCV MCH MCHC RDW Plt Count pCO2 pO2 HCO3 ABG pH ABG Total CO2 ABG O2 Saturation ABG O2 Content ABG Base Excess ABG Hemoglobin ABG Carboxyhemoglobin POC ABG HHb (Measured) ABG Methemoglobin ABG O2 Capacity Favian Test A-a O2 Difference Hgb O2 Saturation Vent Mode Mechanical Rate FiO2 Tidal Volume PEEP Sodium Potassium Chloride Carbon Dioxide Anion Gap BUN Creatinine Est GFR ( Amer) Est GFR (Non-Af Amer) POC Glucose (mg/dL) 100 229 H Random Glucose Calcium Total Bilirubin AST ALT Alkaline Phosphatase Total Protein Albumin Globulin Albumin/Globulin Ratio Acetylchol Rcpt Bind Ab <0.30 12/01/18 12/01/18 12/01/18 04:30 04:30 04:58 WBC 3.6 L RBC 3.47 L Hgb 9.5 L Hct 29.0 L MCV 83.6 MCH 27.4 MCHC 32.8 L RDW 21.0 H Plt Count 220 pCO2 56 H pO2 91 HCO3 37.6 H ABG pH 7.48 H ABG Total CO2 43.4 H ABG O2 Saturation 99.9 H ABG O2 Content 12.5 L ABG Base Excess 16.2 H ABG Hemoglobin 9.0 L ABG Carboxyhemoglobin 1.7 H POC ABG HHb (Measured) 0.1 ABG Methemoglobin 0.7 ABG O2 Capacity 12.5 L Favian Test Yes A-a O2 Difference 267.0 Hgb O2 Saturation 97.5 Vent Mode A/c Mechanical Rate 12 FiO2 60.0 Tidal Volume 400 PEEP 5 Sodium 141 Potassium 3.5 L Chloride 97 L Carbon Dioxide 41 H* Anion Gap 7 L BUN 17 Creatinine 0.8 Est GFR ( Amer) > 60 Est GFR (Non-Af Amer) > 60 POC Glucose (mg/dL) Random Glucose 118 H Calcium 9.1 Total Bilirubin 0.3 AST 35 ALT 29 Alkaline Phosphatase 66 Total Protein 5.9 L Albumin 2.8 L Globulin 3.1 Albumin/Globulin Ratio 0.9 L Acetylchol Rcpt Bind Ab 12/01/18 12/01/18 07:01 11:39 WBC RBC Hgb Hct MCV MCH MCHC RDW Plt Count pCO2 pO2 HCO3 ABG pH ABG Total CO2 ABG O2 Saturation ABG O2 Content ABG Base Excess ABG Hemoglobin ABG Carboxyhemoglobin POC ABG HHb (Measured) ABG Methemoglobin ABG O2 Capacity Favian Test A-a O2 Difference Hgb O2 Saturation Vent Mode Mechanical Rate FiO2 Tidal Volume PEEP Sodium Potassium Chloride Carbon Dioxide Anion Gap BUN Creatinine Est GFR ( Amer) Est GFR (Non-Af Amer) POC Glucose (mg/dL) 105 112 H Random Glucose Calcium Total Bilirubin AST ALT Alkaline Phosphatase Total Protein Albumin Globulin Albumin/Globulin Ratio Acetylchol Rcpt Bind Ab Radiology Impressions: Radiology Impressions Chest X-Ray 12/01/18 05:00 IMPRESSION: Persistently malpositioned endotracheal tube. Advancement is recommended. Otherwise, stable tubes and lines. Stable pulmonary vascular congestion and small right pleural effusion. No significant interval change. Fingerstick Blood Sugar Results: 112 Critical Care Progress Note - Nutrition Nutrition: Nutrition Category Date Time Status NPO Diet [DIET] Diets 11/23/18 Dinner Active Assessment/Plan (1) Acute respiratory failure with hypoxia and hypercarbia Current Visit: Yes Status: Acute Priority: High Comment: Daily SAT/SBT Might need Trach (2) Bacteremia Current Visit: Yes Status: Acute Priority: High Comment: Continue IV Zosyn and Vanco Blood C/S pos Coagulase negative Staph IV Vanco was held on 11/30 due to elevated drug level (3) Pleural effusion Current Visit: Yes Status: Acute Priority: High (4) Hospital-acquired pneumonia Current Visit: Yes Status: Acute Priority: High (5) CHF (congestive heart failure) Current Visit: Yes Status: Chronic Priority: High Comment: Pt developed metabolic alkalemia, IV lasix 40 mg BID switched to 40 mg IV DAILY ABG in Am, consider Diamox 250 mg Po BID (6) Sepsis Current Visit: Yes Status: Acute Priority: High - Assessment and Plan (Free Text) Assessment: # HOB maintained at 30 degrees. # GI/DVT PPX # Stress Ulcer prophylaxis with Protonix # DVT prophylaxis with SCD, Enoxaparin # Code Status: Full code Total critical care time 42 minutes
[2018-12-01] MEDS ORDERED: Potassium Chloride 20 mEq/15 ml LIQ UD PO ONE (13:43)
[2018-12-01 14:16] VITALS: BMI 39.0
[2018-12-01] MEDS ORDERED: Propofol 10 mg/ml 1,000 MG/100 ML VIAL ONE (14:26)
[2018-12-01] MEDS: Propofol 10 mg/ml 1,000 MG/100 ML VIAL IV SCH (14:27)
[2018-12-01] MEDS: Insulin Detemir 100 Units/ml Inj SC SCH (22:27)
[2018-12-02] MEDS: Piperacillin/Tazobact 3.375 GM in Sodium Chloride 0.9% 100 ML IVPB SCH ×4 (04:00→21:41)
[2018-12-02] MEDS: Albuterol-Ipratrop 3 mg / 0.5 (3 ml) UD INH SCH ×5 (05:00→19:41)
[2018-12-02 05:43] LABS: ABG ALLEN TEST YES; ARTERIAL BLOOD GAS HCO3 38.5 mmol/L (21-28); ARTERIAL BLOOD GAS O2 CAPACITY 13.9 mL/dL (16-24); ARTERIAL BLOOD GAS O2 CONTENT 13.7 ML/dL (15-23); ARTERIAL BLOOD GAS O2 SAT 98.7 % (95-98); ARTERIAL BLOOD GAS PCO2 65 mm/Hg (35-45); ARTERIAL BLOOD GAS PH 7.44 (7.35-7.45); ARTERIAL BLOOD GAS PO2 89 mm/Hg (80-100); ARTERIAL BLOOD GAS TCO2 46.1 mmol/L (22-28)
[2018-12-02 06:11] LABS: BASO % 0.3 % (0.0-2.0); EOS # 0.4 K/uL (0.0-0.7); EOS % 10.5 % (0.0-4.0); HEMOGLOBIN 9.4 g/dL (12.0-16.0); LYMPH # 0.7 K/uL (1.0-4.3); LYMPH % 18.5 % (20.0-40.0); MEAN CELL VOLUME 84.4 fl (81.0-99.0); MEAN CORPUSCULAR HEMOGLOBIN 27.2 pg (27.0-31.0); MEAN CORPUSCULAR HGB CONC 32.2 g/dL (33.0-37.0); MEAN PLATELET VOLUME 9.6 fl (7.2-11.7); MONO # 0.5 K/uL (0.0-0.8); MONO % 11.9 % (0.0-10.0); NEUT # 2.3 K/uL (1.8-7.0); NEUT % 58.8 % (50.0-75.0); NRBC % 0.2 % (0.0-0.0); RBC 3.46 Mil/uL (3.80-5.20); RED CELL DISTRIBUTION WIDTH 21.4 % (11.5-14.5); WHITE BLOOD COUNT 3.9 K/uL (4.8-10.8)
[2018-12-02 06:29] LABS: BLOOD UREA NITROGEN 18 mg/dl (7-17); GFR NON-AFRICAN AMERICAN 60
[2018-12-02] MEDS: Insulin Regular 100 units/ml SC SCH ×4 (06:31→23:30)
--- NOTE | 2018-12-02 08:20 | CP.PCM.PN ---
<Elmira Russ - Last Filed: 12/02/18 10:35> Subjective - Date & Time of Evaluation Date of Evaluation: 12/02/18 Time of Evaluation: 09:02 - Subjective Subjective: No acute overnight events. Pt seen and examined by bedside Pt is more awake this AM, responds to voice and physical stimuli Sedation turned off overnight. Intubated Cardiology: swanz cath today, potentially Objective - Vital Signs/Intake and Output Vital Signs (last 24 hours): Temp Pulse Resp BP Pulse Ox 98.6 F 76 12 113/53 L 97 12/02/18 04:00 12/02/18 06:00 12/02/18 06:00 12/02/18 06:00 12/02/18 06:00 Intake and Output: 12/02/18 12/02/18 06:59 18:59 Intake Total 1190 Output Total 550 Balance 640 - Medications Medications: Current Medications Acetaminophen (Tylenol 650mg/20.3ml Solution Ud) 650 mg GT Q6 PRN PRN Reason: temp of > 100.4 F Last Admin: 11/24/18 17:57 Dose: 650 mg Acetaminophen (Tylenol 650mg/20.3ml Solution Ud) 650 mg NG Q4 PRN PRN Reason: fever 100.4 or above Acetazolamide (Diamox 500 Mg Inj) 250 mg IV Q12 JEANA Stop: 12/03/18 09:01 Last Admin: 12/01/18 21:04 Dose: 250 mg Albuterol/Ipratropium (Duoneb 3 Mg/0.5 Mg (3 Ml) Ud) 3 ml INH RQ4 JEANA Last Admin: 12/02/18 07:51 Dose: 3 ml Enoxaparin Sodium (Lovenox) 40 mg SC DAILY JEANA; Protocol Last Admin: 12/01/18 08:42 Dose: 40 mg Vancomycin HCl 1 gm/ Sodium (Chloride) 250 mls @ 166.667 mls/hr IVPB Q12 JEANA; Protocol Last Admin: 12/01/18 21:05 Dose: 166.667 mls/hr Piperacillin Sod/Tazobactam (Sod 3.375 gm/ Sodium Chloride) 100 mls @ 100 mls/hr IVPB Q6 JEANA; Protocol Last Admin: 12/02/18 04:00 Dose: 100 mls/hr Insulin Detemir (Levemir) 10 units SC HS JEANA Last Admin: 12/01/18 22:27 Dose: 10 u Insulin Human Regular (Humulin R) 0 units SC ACCU-CHECK [facility]; Protocol Last Admin: 12/02/18 06:31 Dose: Not Given Lorazepam (Ativan) 1 mg IVP Q4 PRN PRN Reason: Agitation Last Admin: 12/01/18 15:30 Dose: 1 mg Losartan Potassium (Cozaar) 25 mg PO DAILY [facility] Last Admin: 12/01/18 08:43 Dose: 25 mg Pantoprazole Sodium (Protonix Inj) 40 mg IVP DAILY [facility] Last Admin: 12/01/18 14:28 Dose: 40 mg Spironolactone (Aldactone) 12.5 mg PO DAILY [facility] - Labs Labs: 12/02/18 05:05 12/02/18 05:05 - Constitutional Appears: No Acute Distress, Other (ETT and OG tube noted ) - Head Exam Head Exam: NORMAL INSPECTION - ENT Exam ENT Exam: Mucous Membranes Moist - Respiratory Exam Respiratory Exam: Clear to Ausculation Bilateral, NORMAL BREATHING PATTERN. absent: Wheezes - Cardiovascular Exam Cardiovascular Exam: REGULAR RHYTHM, +S1, +S2 - GI/Abdominal Exam GI & Abdominal Exam: Distended, Soft, Normal Bowel Sounds. absent: Tenderness - Extremities Exam Extremities Exam: Pedal Edema (mild) Additional comments: sacral edema noted, upper ext edema, worse in the hands b/l - Neurological Exam Neurological Exam: Alert, Awake - Psychiatric Exam Psychiatric exam: Normal Mood Assessment and Plan (1) Bacteremia Status: Acute (2) Sepsis Status: Acute (3) CHF (congestive heart failure) Status: Chronic (4) Respiratory failure Status: Acute (5) Anemia Status: Chronic - Assessment and Plan (Free Text) Assessment: Assessment/Plan: 83 YO female with PMHx of HTN, CHF (w/ pacemaker), DM, hypothyroidism, admitted due to recurrent hypercapneic respiratory failure. Patient brought to ED on 11/22/18 for LATONIA due to AMS, intubated and admitted to ICU. -Recurrent hypercapneic respiratory failure s/p intubation and on MV on 11/22/18 pulmonary on board, CXR appreciated (11/30) sig for L pleural effusion, small Intubated, off sedation Wean off when tolerating in preparation of extubation c/w with IV abx-Vac and Zosyn Per pulmo, will likely need tarch if patient fails weaning off -CHF, pacemaker, chronic Cardiology on board, swanz cath today? -Bacteremia, sepsis Blood cx 11/22/18: Gram positive cocci in pairs ID on board BCx 11/24 neg c/w Vancomycin and Zosyn -Anemia, Normocytic likely acute on chronic No acute source of GI bleed Pleural effusion Noted on CXR, L sided small IV lasix 60 daily Potassium replacement as needed -DVT prophylx <Kenneth Le - Last Filed: 12/02/18 15:17> Objective - Vital Signs/Intake and Output Vital Signs (last 24 hours): Temp Pulse Resp BP Pulse Ox 99.3 F 80 10 L 121/57 L 100 12/02/18 12:00 12/02/18 12:00 12/02/18 12:00 12/02/18 12:00 12/02/18 12:00 Intake and Output: 12/02/18 12/02/18 06:59 18:59 Intake Total 1190 582 Output Total 550 Balance 640 582 - Medications Medications: Current Medications Acetaminophen (Tylenol 650mg/20.3ml Solution Ud) 650 mg GT Q6 PRN PRN Reason: temp of > 100.4 F Last Admin: 11/24/18 17:57 Dose: 650 mg Acetaminophen (Tylenol 650mg/20.3ml Solution Ud) 650 mg NG Q4 PRN PRN Reason: fever 100.4 or above Acetazolamide (Diamox 500 Mg Inj) 250 mg IV Q12 JEANA Stop: 12/03/18 09:01 Last Admin: 12/02/18 08:40 Dose: 250 mg Albuterol/Ipratropium (Duoneb 3 Mg/0.5 Mg (3 Ml) Ud) 3 ml INH RQ4 JEANA Last Admin: 12/02/18 11:13 Dose: 3 ml Enoxaparin Sodium (Lovenox) 40 mg SC DAILY JEANA; Protocol Last Admin: 12/02/18 08:38 Dose: 40 mg Furosemide (Lasix) 60 mg IV DAILY JEANA Last Admin: 12/02/18 09:30 Dose: 60 mg Vancomycin HCl 1 gm/ Sodium (Chloride) 250 mls @ 166.667 mls/hr IVPB Q12 JEANA; Protocol Last Admin: 12/02/18 08:41 Dose: 166.667 mls/hr Piperacillin Sod/Tazobactam (Sod 3.375 gm/ Sodium Chloride) 100 mls @ 100 mls/hr IVPB Q6 [facility]; Protocol Last Admin: 12/02/18 10:35 Dose: 100 mls/hr Insulin Detemir (Levemir) 10 units SC HS JEANA Last Admin: 12/01/18 22:27 Dose: 10 u Insulin Human Regular (Humulin R) 0 units SC ACCU-CHECK [facility]; Protocol Last Admin: 12/02/18 13:16 Dose: Not Given Lorazepam (Ativan) 1 mg IVP Q4 PRN PRN Reason: Agitation Last Admin: 12/01/18 15:30 Dose: 1 mg Losartan Potassium (Cozaar) 25 mg PO DAILY [facility] Last Admin: 12/02/18 08:38 Dose: 25 mg Pantoprazole Sodium (Protonix Inj) 40 mg IVP DAILY [facility] Last Admin: 12/02/18 08:37 Dose: 40 mg Potassium Chloride (Potassium Chloride Oral Soln) 40 meq NG DAILY [facility] Spironolactone (Aldactone) 12.5 mg PO DAILY [facility] - Labs Labs: 12/02/18 05:05 12/02/18 05:05 Assessment and Plan (1) Respiratory failure Status: Acute (2) Anemia Status: Chronic Attending/Attestation - Attestation I have personally seen and examined this patient.: Yes I have fully participated in the care of the patient.: Yes I have reviewed all pertinent clinical information, including history, physical exam and plan: Yes
[2018-12-02 08:28] LABS: VENOUS BLOOD GAS BASE EXCESS 17.9 mmol/L (0.0-2.0); VENOUS BLOOD GAS PCO2 60 mmHg (40-60); VENOUS BLOOD GAS PO2 34 mm/Hg (30-55); VENOUS BLOOD PH 7.48 (7.32-7.43)
[2018-12-02] MEDS: Enoxaparin 40 mg Syringe SC SCH (08:38)
[2018-12-02] MEDS ORDERED: Potassium Chloride 20 mEq/15 ml LIQ UD NG ONE (08:48)
--- NOTE | 2018-12-02 10:12 | CP.PCM.PN ---
Subjective - Date & Time of Evaluation Date of Evaluation: 12/02/18 Time of Evaluation: 10:17 - Subjective Subjective: STILL INTUBATED AND BEING VENTILATED SEDATED O2 SAT DROPS TO 85% WHEN ATTEMPTING TO WEAN OFF VENT DAUGHTER AT BEDSIDE--CASE DISCUSSED WITH HER INCLUDING POSSIBLE TRACHEOSTOMY Objective - Vital Signs/Intake and Output Vital Signs (last 24 hours): Temp Pulse Resp BP Pulse Ox 98.2 F 101 H 12 108/57 L 94 L 12/02/18 08:00 12/02/18 08:38 12/02/18 08:00 12/02/18 08:38 12/02/18 08:00 Intake and Output: 12/02/18 12/02/18 06:59 18:59 Intake Total 1190 84 Output Total 550 Balance 640 84 - Medications Medications: Current Medications Acetaminophen (Tylenol 650mg/20.3ml Solution Ud) 650 mg GT Q6 PRN PRN Reason: temp of > 100.4 F Last Admin: 11/24/18 17:57 Dose: 650 mg Acetaminophen (Tylenol 650mg/20.3ml Solution Ud) 650 mg NG Q4 PRN PRN Reason: fever 100.4 or above Acetazolamide (Diamox 500 Mg Inj) 250 mg IV Q12 JEANA Stop: 12/03/18 09:01 Last Admin: 12/02/18 08:40 Dose: 250 mg Albuterol/Ipratropium (Duoneb 3 Mg/0.5 Mg (3 Ml) Ud) 3 ml INH RQ4 JEANA Last Admin: 12/02/18 07:51 Dose: 3 ml Enoxaparin Sodium (Lovenox) 40 mg SC DAILY [facility]; Protocol Last Admin: 12/02/18 08:38 Dose: 40 mg Furosemide (Lasix) 60 mg IV DAILY JEANA Vancomycin HCl 1 gm/ Sodium (Chloride) 250 mls @ 166.667 mls/hr IVPB Q12 [facility]; Protocol Last Admin: 12/02/18 08:41 Dose: 166.667 mls/hr Piperacillin Sod/Tazobactam (Sod 3.375 gm/ Sodium Chloride) 100 mls @ 100 mls/hr IVPB Q6 [facility]; Protocol Last Admin: 12/02/18 04:00 Dose: 100 mls/hr Insulin Detemir (Levemir) 10 units SC HS JEANA Last Admin: 12/01/18 22:27 Dose: 10 u Insulin Human Regular (Humulin R) 0 units SC ACCU-CHECK [facility]; Protocol Last Admin: 12/02/18 06:31 Dose: Not Given Lorazepam (Ativan) 1 mg IVP Q4 PRN PRN Reason: Agitation Last Admin: 12/01/18 15:30 Dose: 1 mg Losartan Potassium (Cozaar) 25 mg PO DAILY [facility] Last Admin: 12/02/18 08:38 Dose: 25 mg Pantoprazole Sodium (Protonix Inj) 40 mg IVP DAILY [facility] Last Admin: 12/02/18 08:37 Dose: 40 mg Spironolactone (Aldactone) 12.5 mg PO DAILY [facility] - Labs Labs: 12/02/18 05:05 12/02/18 05:05 - Constitutional Appears: Chronically Ill - Head Exam Head Exam: ATRAUMATIC, NORMAL INSPECTION, NORMOCEPHALIC - Eye Exam Eye Exam: EOMI, Normal appearance, PERRL Pupil Exam: NORMAL ACCOMODATION, PERRL - ENT Exam ENT Exam: Mucous Membranes Moist, Normal Exam - Neck Exam Neck Exam: Full ROM, Normal Inspection. absent: Lymphadenopathy - Respiratory Exam Respiratory Exam: Decreased Breath Sounds, Prolonged Expiratory Phase, Rales, NORMAL BREATHING PATTERN - Cardiovascular Exam Cardiovascular Exam: REGULAR RHYTHM, +S1, +S2. absent: Murmur - GI/Abdominal Exam GI & Abdominal Exam: Soft, Normal Bowel Sounds. absent: Tenderness - Rectal Exam Rectal Exam: NORMAL INSPECTION - Extremities Exam Extremities Exam: Full ROM, Pedal Edema. absent: Joint Swelling - Back Exam Back Exam: NORMAL INSPECTION - Skin Skin Exam: Dry, Intact, Normal Color, Warm Assessment and Plan - Assessment and Plan (Free Text) Assessment: ACUTE HYPERCAPNEIC RESPIRATORY FAILURE CHF ?PNEUMONIA COPD EXAC Plan: [id number] CURRENT RX AND ATTEMPTS TO EXTUBATE MAY NEED TRACHEOSTOMY
--- NOTE | 2018-12-02 11:23 | RAD ---
Date of service: 12/02/2018 HISTORY: intubated COMPARISON: Chest radiograph dated 12/01/2018. FINDINGS: LUNGS: Pulmonary vascular congestion. Bibasilar atelectasis. PLEURA: Small bilateral pleural effusions. No appreciable pneumothorax. CARDIOVASCULAR: Left subclavian access AICD/pacemaker redemonstrated. Aortic atherosclerotic calcifications. Cardiomediastinal silhouette stably enlarged. OSSEOUS STRUCTURES: Unchanged. VISUALIZED UPPER ABDOMEN: Normal. OTHER FINDINGS: Endotracheal tube with tip at the level of the clavicular heads, unchanged. Enteric tube, unchanged. Right upper extremity PICC, unchanged. IMPRESSION: Persistently malpositioned endotracheal tube. Advancement is recommended. Otherwise, stable tubes and lines. Stable pulmonary vascular congestion and small bilateral pleural effusions. No significant interval change.
--- NOTE | 2018-12-02 13:12 | CP.PCM.PN ---
Subjective - Date & Time of Evaluation Date of Evaluation: 12/02/18 Time of Evaluation: 07:00 - Subjective Subjective: unable to be weaned will likely need trach /peg Objective - Vital Signs/Intake and Output Vital Signs (last 24 hours): Temp Pulse Resp BP Pulse Ox 99.3 F 80 10 L 121/57 L 100 12/02/18 12:00 12/02/18 12:00 12/02/18 12:00 12/02/18 12:00 12/02/18 12:00 Intake and Output: 12/02/18 12/02/18 06:59 18:59 Intake Total 1190 582 Output Total 550 Balance 640 582 - Medications Medications: Current Medications Acetaminophen (Tylenol 650mg/20.3ml Solution Ud) 650 mg GT Q6 PRN PRN Reason: temp of > 100.4 F Last Admin: 11/24/18 17:57 Dose: 650 mg Acetaminophen (Tylenol 650mg/20.3ml Solution Ud) 650 mg NG Q4 PRN PRN Reason: fever 100.4 or above Acetazolamide (Diamox 500 Mg Inj) 250 mg IV Q12 [facility] Stop: 12/03/18 09:01 Last Admin: 12/02/18 08:40 Dose: 250 mg Albuterol/Ipratropium (Duoneb 3 Mg/0.5 Mg (3 Ml) Ud) 3 ml INH RQ4 [facility] Last Admin: 12/02/18 11:13 Dose: 3 ml Enoxaparin Sodium (Lovenox) 40 mg SC DAILY [facility]; Protocol Last Admin: 12/02/18 08:38 Dose: 40 mg Furosemide (Lasix) 60 mg IV DAILY [facility] Last Admin: 12/02/18 09:30 Dose: 60 mg Vancomycin HCl 1 gm/ Sodium (Chloride) 250 mls @ 166.667 mls/hr IVPB Q12 [facility]; Protocol Last Admin: 12/02/18 08:41 Dose: 166.667 mls/hr Piperacillin Sod/Tazobactam (Sod 3.375 gm/ Sodium Chloride) 100 mls @ 100 mls/hr IVPB Q6 [facility]; Protocol Last Admin: 12/02/18 10:35 Dose: 100 mls/hr Insulin Detemir (Levemir) 10 units SC HS [facility] Last Admin: 12/01/18 22:27 Dose: 10 u Insulin Human Regular (Humulin R) 0 units SC ACCU-CHECK [facility]; Protocol Last Admin: 12/02/18 06:31 Dose: Not Given Lorazepam (Ativan) 1 mg IVP Q4 PRN PRN Reason: Agitation Last Admin: 12/01/18 15:30 Dose: 1 mg Losartan Potassium (Cozaar) 25 mg PO DAILY [facility] Last Admin: 12/02/18 08:38 Dose: 25 mg Pantoprazole Sodium (Protonix Inj) 40 mg IVP DAILY [facility] Last Admin: 12/02/18 08:37 Dose: 40 mg Potassium Chloride (Potassium Chloride Oral Soln) 40 meq NG DAILY [facility] Spironolactone (Aldactone) 12.5 mg PO DAILY [facility] - Labs Labs: 12/02/18 05:05 12/02/18 05:05 - Constitutional Appears: Non-toxic, Chronically Ill - Head Exam Head Exam: NORMOCEPHALIC - Eye Exam Eye Exam: absent: Scleral icterus - ENT Exam ENT Exam: Mucous Membranes Dry - Neck Exam Neck Exam: absent: Lymphadenopathy - Respiratory Exam Respiratory Exam: Decreased Breath Sounds, Prolonged Expiratory Phase, Rhonchi - Cardiovascular Exam Cardiovascular Exam: REGULAR RHYTHM - GI/Abdominal Exam GI & Abdominal Exam: Distended - Rectal Exam Rectal Exam: Deferred - Exam Exam: NORMAL INSPECTION - Extremities Exam Extremities Exam: absent: Full ROM - Back Exam Back Exam: absent: CVA tenderness (L), CVA tenderness (R) Assessment and Plan (1) Acute respiratory failure with hypoxia and hypercarbia Status: Acute (2) Bacteremia Status: Acute (3) Diabetes mellitus type 2 in obese Status: Acute (4) Pleural effusion Status: Acute (5) Respiratory failure Status: Acute - Assessment and Plan (Free Text) Assessment: rx renewed
--- NOTE | 2018-12-02 14:20 | CP.CCUPN ---
CCU Subjective - Physician Review Subjective (Free Text): Off sedation and responds to verbal stimuli, appears calm, breathing 13 only on AC 12, 98% SPO2 after fio2 reduced to 55% and PEEP increased to 8. PPP= 22. Later, patient tolerated a one hour CPAP PS trial, decision made not to extubate due to lethargic, but responsive state when awakened. Afebrile, no fever spikes overnight, Tmax 99.3F overnight, SBP 100s 130s; HR 80s paced, fluid balance negative 0.8L. Urine output approx. 550ml overnight. ROS: No other pertinent negs or positives on 10+ system review due to sedation. PMSFH: All other Nursing and physician documentation reviewed to date; no new pertinent info noted relevant to current medical problems. EXAM- HEENT: no icterus, no gaze preference NECK: No JVD visible given short neck and overall obesity, supple, carotids equal upstroke bilat/no bruit CHEST: decreased BS at the bases, no wheezes audible bilaterally. HEART: regular, distant, S1S2, no rubs or murmurs noted ABD: soft, obese, nontender, no guarding, no organomegaly, BS hypoactive. EXT: +1 leg edema- SCDs on bilat, no calf tenderness or palpable cords, distal pulses intact and symmetrical. RUE single lumen PICC. NEURO: withdraws to pain, + tone in all extremities. SKIN: no rashes, warm and dry LABS: WBC= 3.9 HGB= 9.4 PLTs= 229K Na= 141 K= 3.4 CL= 97 HCO3= 40 BUN/Cr= 18/0.9 BS= 129 CXR: (my interp)- RML, LLL interstitial changes, Left hemidiaphragm not visible. ETT tip position ok above mamadou. No overall improvement noted over the past several days. IMPRESSION / MAJOR PROBLEMS NOW: 1. Acute Hypercapneic Resp Failure, 2 bilat Pneumonia / COPD Exacerbation 2. Metabolic Encephalopathy with AMS 2 #1 3. h/o CHF with DDysfx 4. h/o DM II PLAN: 1. Ongoing diuresis with Lasix, added to Acetazolamide. BUN Cr appears stable and tolerating. 2. MV settings adjusted again to IBW and ongoing attempts to decrease FiO2 further. No auto peep detected. 3. Continue Zosyn, and Vanco: Coag neg Staph in 1 BC bottle, subsequent cultures have been negative. Will repeat Sputum Cx. 4. ECHO from Oct 2018 reviewed. VBG shows mixed venous SVO2 at 62%, yet lactate level is normal. Diuretics use is ongoing, CXR remains essentially without significant change, consider CT Chest. Day # 11 on MV support. Pulm has already mentioned Trach to the family.
[2018-12-02] MEDS: Insulin Detemir 100 Units/ml Inj SC SCH (21:42)
--- NOTE | 2018-12-02 23:11 | CP.PCM.PN ---
<Pierce Yo - Last Filed: 12/02/18 23:09> Subjective - Date & Time of Evaluation Date of Evaluation: 12/02/18 Time of Evaluation: 23:09 - Subjective Subjective: Pierce Yo DO PGY1 - Internal Medicine Ext Js Developer - Cardiology Consult Note Patient was seen and examined at bedside this morning during sedation vacation; patient following commands however very lethargic; Intubated at time of evaluation Objective - Vital Signs/Intake and Output Vital Signs (last 24 hours): Temp Pulse Resp BP Pulse Ox 100.2 F H 91 H 11 L 95/51 L 98 12/02/18 18:00 12/02/18 18:00 12/02/18 18:00 12/02/18 18:00 12/02/18 18:00 Intake and Output: 12/02/18 12/03/18 18:59 06:59 Intake Total 1004 Output Total 1600 Balance -596 - Medications Medications: Current Medications Acetaminophen (Tylenol 650mg/20.3ml Solution Ud) 650 mg GT Q6 PRN PRN Reason: temp of > 100.4 F Last Admin: 11/24/18 17:57 Dose: 650 mg Acetaminophen (Tylenol 650mg/20.3ml Solution Ud) 650 mg NG Q4 PRN PRN Reason: fever 100.4 or above Acetazolamide (Diamox 500 Mg Inj) 250 mg IV Q12 [facility] Stop: 12/03/18 09:01 Last Admin: 12/02/18 20:30 Dose: 250 mg Albuterol/Ipratropium (Duoneb 3 Mg/0.5 Mg (3 Ml) Ud) 3 ml INH RQ4 [facility] Last Admin: 12/02/18 19:41 Dose: 3 ml Enoxaparin Sodium (Lovenox) 40 mg SC DAILY [facility]; Protocol Last Admin: 12/02/18 08:38 Dose: 40 mg Furosemide (Lasix) 60 mg IV DAILY [facility] Last Admin: 12/02/18 09:30 Dose: 60 mg Vancomycin HCl 1 gm/ Sodium (Chloride) 250 mls @ 166.667 mls/hr IVPB Q12 [facility]; Protocol Last Admin: 12/02/18 20:29 Dose: 166.667 mls/hr Piperacillin Sod/Tazobactam (Sod 3.375 gm/ Sodium Chloride) 100 mls @ 100 mls/hr IVPB Q6 [facility]; Protocol Last Admin: 12/02/18 21:41 Dose: 100 mls/hr Insulin Detemir (Levemir) 10 units SC HS [facility] Last Admin: 12/02/18 21:42 Dose: 10 u Insulin Human Regular (Humulin R) 0 units SC ACCU-CHECK [facility]; Protocol Last Admin: 12/02/18 16:57 Dose: Not Given Lorazepam (Ativan) 1 mg IVP Q4 PRN PRN Reason: Agitation Last Admin: 12/01/18 15:30 Dose: 1 mg Losartan Potassium (Cozaar) 25 mg PO DAILY [facility] Last Admin: 12/02/18 08:38 Dose: 25 mg Pantoprazole Sodium (Protonix Inj) 40 mg IVP DAILY [facility] Last Admin: 12/02/18 08:37 Dose: 40 mg Potassium Chloride (Potassium Chloride Oral Soln) 40 meq NG DAILY [facility] Spironolactone (Aldactone) 12.5 mg PO DAILY [facility] - Labs Labs: 12/02/18 05:05 12/02/18 05:05 - Constitutional Appears: Non-toxic, No Acute Distress, Responsive to verbal command however lethargic - Eye Exam Eye Exam: PERRL. absent: Scleral icterus - ENT Exam Additional comments: ET tube in place - Respiratory Exam Respiratory Exam: Clear to Ausculation Bilateral, NORMAL BREATHING PATTERN - Cardiovascular Exam Cardiovascular Exam: RRR, +S1, +S2. absent: Murmur - GI/Abdominal Exam GI & Abdominal Exam: Soft - Extremities Exam Extremities Exam: Pedal Edema Additional comments: Upper extremity edematous - Neurological Exam Additional comments: intubated - Skin Skin Exam: Dry, Normal Color, Warm Assessment and Plan - Assessment and Plan (Free Text) Plan: Unable to perform swanz cath today; will need to attempt again tomorrow Continue Cozaar 25 daily,Continue Aldactone 12.5 daily Further recommendations as per Dr. Kim Pending. <Douglas Kim - Last Filed: 12/04/18 22:06> Objective - Vital Signs/Intake and Output Vital Signs (last 24 hours): Temp Pulse Resp BP Pulse Ox 99.0 F 86 17 122/59 L 94 L 12/04/18 16:00 12/04/18 18:00 12/04/18 18:00 12/04/18 18:00 12/04/18 18:00 Intake and Output: 12/04/18 12/05/18 18:59 06:59 Intake Total 1050 Output Total 2024 Balance -975 - Medications Medications: Current Medications Acetaminophen (Tylenol 650mg/20.3ml Solution Ud) 650 mg GT Q6 PRN PRN Reason: temp of > 100.4 F Last Admin: 11/24/18 17:57 Dose: 650 mg Acetaminophen (Tylenol 650mg/20.3ml Solution Ud) 650 mg NG Q4 PRN PRN Reason: fever 100.4 or above Last Admin: 12/03/18 10:36 Dose: 650 mg Albuterol/Ipratropium (Duoneb 3 Mg/0.5 Mg (3 Ml) Ud) 3 ml INH RQ4 [facility] Last Admin: 12/04/18 19:08 Dose: 3 ml Enoxaparin Sodium (Lovenox) 40 mg SC DAILY [facility]; Protocol Last Admin: 12/04/18 08:52 Dose: 40 mg Furosemide (Lasix) 60 mg IV DAILY [facility] Last Admin: 12/04/18 08:51 Dose: 60 mg Vancomycin HCl 1 gm/ Sodium (Chloride) 250 mls @ 166.667 mls/hr IVPB Q12 [facility]; Protocol Last Admin: 12/04/18 21:28 Dose: 166.667 mls/hr Piperacillin Sod/Tazobactam (Sod 3.375 gm/ Sodium Chloride) 100 mls @ 100 mls/hr IVPB Q6 [facility]; Protocol Last Admin: 12/04/18 21:27 Dose: 100 mls/hr Insulin Detemir (Levemir) 10 units SC [facility] Last Admin: 12/04/18 21:29 Dose: 10 u Insulin Human Regular (Humulin R) 0 units SC ACCU-CHECK [facility]; Protocol Last Admin: 12/04/18 22:05 Dose: Not Given Lorazepam (Ativan) 1 mg IVP Q4 PRN PRN Reason: Agitation Last Admin: 12/01/18 15:30 Dose: 1 mg Losartan Potassium (Cozaar) 25 mg PO DAILY [facility] Last Admin: 12/04/18 16:21 Dose: Not Given Pantoprazole Sodium (Protonix Inj) 40 mg IVP DAILY [facility] Last Admin: 12/04/18 08:52 Dose: 40 mg Potassium Chloride (Potassium Chloride Oral Soln) 40 meq NG DAILY [facility] Last Admin: 12/04/18 16:21 Dose: Not Given Spironolactone (Aldactone) 12.5 mg PO DAILY [facility] - Labs Labs: 12/04/18 05:36 12/04/18 05:36 Attending/Attestation - Attestation I have personally seen and examined this patient.: Yes I have fully participated in the care of the patient.: Yes I have reviewed all pertinent clinical information, including history, physical exam and plan: Yes
[2018-12-03] MEDS: Albuterol-Ipratrop 3 mg / 0.5 (3 ml) UD INH SCH ×6 (00:25→19:15)
[2018-12-03] MEDS: Acetaminophen 650mg/20.3ml solution UD NG PRN ×2 (02:28→10:36)
[2018-12-03] MEDS: Piperacillin/Tazobact 3.375 GM in Sodium Chloride 0.9% 100 ML IVPB SCH ×4 (04:30→21:25)
[2018-12-03 04:45] LABS: ABG ALLEN TEST YES; ARTERIAL BLOOD GAS HCO3 38.1 mmol/L (21-28); ARTERIAL BLOOD GAS HEMOGLOBIN 9.4 g/dL (11.7-17.4); ARTERIAL BLOOD GAS O2 CAPACITY 13.1 mL/dL (16-24); ARTERIAL BLOOD GAS O2 CONTENT 13.1 ML/dL (15-23); ARTERIAL BLOOD GAS PCO2 54 mm/Hg (35-45); ARTERIAL BLOOD GAS PO2 102 mm/Hg (80-100); ARTERIAL BLOOD GAS TCO2 43.8 mmol/L (22-28)
[2018-12-03 05:53] LABS: BASO % 0.2 % (0.0-2.0); EOS # 0.3 K/uL (0.0-0.7); EOS % 6.4 % (0.0-4.0); HEMOGLOBIN 9.3 g/dL (12.0-16.0); LYMPH # 0.9 K/uL (1.0-4.3); LYMPH % 17.7 % (20.0-40.0); MEAN CELL VOLUME 85.6 fl (81.0-99.0); MEAN CORPUSCULAR HEMOGLOBIN 26.8 pg (27.0-31.0); MEAN CORPUSCULAR HGB CONC 31.3 g/dL (33.0-37.0); MEAN PLATELET VOLUME 9.4 fl (7.2-11.7); MONO # 0.5 K/uL (0.0-0.8); NEUT # 3.3 K/uL (1.8-7.0); NEUT % 65.7 % (50.0-75.0); NRBC % 0.1 % (0.0-0.0); RBC 3.48 Mil/uL (3.80-5.20); RED CELL DISTRIBUTION WIDTH 21.3 % (11.5-14.5); WHITE BLOOD COUNT 5.1 K/uL (4.8-10.8)
[2018-12-03 06:24] LABS: ALB/GLOB RATIO 0.9 (1.0-2.1); ALBUMIN 2.9 g/dL (3.5-5.0); ALT/SGPT 30 U/L (9-52); AST/SGOT 38 U/L (14-36); BLOOD UREA NITROGEN 20 mg/dl (7-17); CALCIUM 9.1 mg/dL (8.4-10.2); GFR NON-AFRICAN AMERICAN 53
[2018-12-03] MEDS ORDERED: Potassium Chloride 20 mEq/15 ml LIQ UD PO STA (06:45)
[2018-12-03] MEDS: Insulin Regular 100 units/ml SC SCH ×4 (07:03→23:42)
--- NOTE | 2018-12-03 08:28 | RAD ---
Date of service: 12/03/2018 HISTORY: intubated COMPARISON: Portable chest 12/02/2018 FINDINGS: LUNGS: Endotracheal tube terminates just above the level of clavicles some 6.5 cm above the mamadou. Consider advancing the ETT few cm antegrade and follow-up by chest radiography. The nasogastric tube is not significantly changed in position with AICD again identified. Midline right PICC reiterated. Left basilar atelectasis or infiltrate unchanged. Limited atelectasis remains at right base. PLEURA: Left pleural effusion not excluded. Small right pleural effusion unchanged. No pneumothorax bilaterally. CARDIOVASCULAR: Calcific atherosclerotic changes are seen related to the thoracic aorta. Cardiomegaly unchanged. Mild pulmonary vascular congestion reiterated. OSSEOUS STRUCTURES: No significant abnormalities. VISUALIZED UPPER ABDOMEN: Normal. OTHER FINDINGS: None. IMPRESSION: ET tube remains elevated in position. Adjustment advised as discussed above follow-up by confirmation radiography. No significant interval change in left basilar atelectasis or infiltrate and limited right basilar atelectasis. Small pleural effusion remains. Left basilar pleural effusion not excluded. Stable cardiomegaly and mild pulmonary vascular congestion.
[2018-12-03] MEDS ORDERED: Potassium Chloride 20 mEq/15 ml LIQ UD PO ONE (09:07)
--- NOTE | 2018-12-03 09:10 | CP.PCM.PN ---
<Elmira Russ - Last Filed: 12/03/18 14:19> Subjective - Date & Time of Evaluation Date of Evaluation: 12/03/18 Time of Evaluation: 09:08 - Subjective Subjective: Low grade temp overnight, Tmax of 100.4. Pt seen and examined by bedside this AM. Pt reacts on physical stimuli, sleepy. Intubated, sedation is off. Noted moving both upper ext. Objective - Vital Signs/Intake and Output Vital Signs (last 24 hours): Temp Pulse Resp BP Pulse Ox 99.9 F H 82 12 136/63 97 12/03/18 08:00 12/03/18 08:00 12/03/18 08:00 12/03/18 08:00 12/03/18 08:00 Intake and Output: 12/03/18 12/03/18 06:59 18:59 Intake Total 1039 Output Total 400 Balance 639 - Medications Medications: Current Medications Acetaminophen (Tylenol 650mg/20.3ml Solution Ud) 650 mg GT Q6 PRN PRN Reason: temp of > 100.4 F Last Admin: 11/24/18 17:57 Dose: 650 mg Acetaminophen (Tylenol 650mg/20.3ml Solution Ud) 650 mg NG Q4 PRN PRN Reason: fever 100.4 or above Last Admin: 12/03/18 02:28 Dose: 650 mg Albuterol/Ipratropium (Duoneb 3 Mg/0.5 Mg (3 Ml) Ud) 3 ml INH RQ4 [facility] Last Admin: 12/03/18 08:22 Dose: 3 ml Enoxaparin Sodium (Lovenox) 40 mg SC DAILY [facility]; Protocol Last Admin: 12/02/18 08:38 Dose: 40 mg Furosemide (Lasix) 60 mg IV DAILY [facility] Last Admin: 12/02/18 09:30 Dose: 60 mg Vancomycin HCl 1 gm/ Sodium (Chloride) 250 mls @ 166.667 mls/hr IVPB Q12 [facility]; Protocol Last Admin: 12/02/18 20:29 Dose: 166.667 mls/hr Piperacillin Sod/Tazobactam (Sod 3.375 gm/ Sodium Chloride) 100 mls @ 100 mls/hr IVPB Q6 [facility]; Protocol Last Admin: 12/03/18 04:30 Dose: 100 mls/hr Insulin Detemir (Levemir) 10 units SC [facility] Last Admin: 12/02/18 21:42 Dose: 10 u Insulin Human Regular (Humulin R) 0 units SC ACCU-CHECK [facility]; Protocol Last Admin: 12/03/18 07:03 Dose: Not Given Lorazepam (Ativan) 1 mg IVP Q4 PRN PRN Reason: Agitation Last Admin: 12/01/18 15:30 Dose: 1 mg Losartan Potassium (Cozaar) 25 mg PO DAILY [facility] Last Admin: 12/02/18 08:38 Dose: 25 mg Pantoprazole Sodium (Protonix Inj) 40 mg IVP DAILY [facility] Last Admin: 12/02/18 08:37 Dose: 40 mg Potassium Chloride (Potassium Chloride Oral Soln) 40 meq NG DAILY [facility] Potassium Chloride (Potassium Chloride Oral Soln) 20 meq PO ONCE ONE Stop: 12/03/18 09:08 Spironolactone (Aldactone) 12.5 mg PO DAILY [facility] - Labs Labs: 12/03/18 05:00 12/03/18 05:00 - Constitutional Appears: No Acute Distress, Other (ETT and OG tube noted and intact ) - Head Exam Head Exam: NORMAL INSPECTION - ENT Exam ENT Exam: Mucous Membranes Moist - Respiratory Exam Respiratory Exam: NORMAL BREATHING PATTERN Additional comments: course breath sounds b/l - Cardiovascular Exam Cardiovascular Exam: REGULAR RHYTHM, +S1, +S2 - GI/Abdominal Exam GI & Abdominal Exam: Soft, Normal Bowel Sounds. absent: Tenderness - Exam Additional comments: amaral cath on, draining dark yellow fluid - Extremities Exam Additional comments: b/l upper ext edema noted, most on hands Assessment and Plan (1) Bacteremia Status: Acute (2) Sepsis Status: Acute (3) CHF (congestive heart failure) Status: Chronic (4) Respiratory failure Status: Acute (5) Anemia Status: Chronic (6) Pleural effusion Status: Acute - Assessment and Plan (Free Text) Assessment: Assessment/Plan: 83 YO female with PMHx of HTN, CHF (w/ pacemaker), DM, hypothyroidism, admitted due to recurrent hypercapneic respiratory failure. Patient brought to ED on 11/22/18 for [place]ONIA due to AMS, intubated and admitted to ICU. -Recurrent hypercapneic respiratory failure s/p intubation and on MV on 11/22/18 pulmonary on board, CXR appreciated (11/30) sig for L pleural effusion, small Intubated, off sedation Wean off when tolerating in preparation of extubation c/w with IV abx-Vac and Zosyn -CHF, pacemaker, chronic Cardiology on board, [facility] cath? -Bacteremia, sepsis Blood cx 11/22/18: Gram positive cocci in pairs ID on board BCx 11/24 neg c/w Vancomycin and Zosyn -Anemia, Normocytic likely acute on chronic No acute source of GI bleed Pleural effusion, L 2/2 heart failure, fluid status, renal status Diastolic dysfunction on echo 10/27 as noted on CXR, atelectasis questionable infiltrate c/w iv Abx, IV lasix 60 daily, KCL 40 meq daily Potassium replacement as needed -DVT prophylx: Lovenox SC <Nakul Zhang K - Last Filed: 12/04/18 13:28> Objective - Vital Signs/Intake and Output Vital Signs (last 24 hours): Temp Pulse Resp BP Pulse Ox 98.3 F 84 28 H 124/59 L 93 L 12/04/18 12:00 12/04/18 12:00 12/04/18 12:00 12/04/18 12:00 12/04/18 12:00 Intake and Output: 12/04/18 12/04/18 11:59 23:59 Intake Total 350 Output Total 1600 325 Balance -1250 -325 - Medications Medications: Current Medications Acetaminophen (Tylenol 650mg/20.3ml Solution Ud) 650 mg GT Q6 PRN PRN Reason: temp of > 100.4 F Last Admin: 11/24/18 17:57 Dose: 650 mg Acetaminophen (Tylenol 650mg/20.3ml Solution Ud) 650 mg NG Q4 PRN PRN Reason: fever 100.4 or above Last Admin: 12/03/18 10:36 Dose: 650 mg Albuterol/Ipratropium (Duoneb 3 Mg/0.5 Mg (3 Ml) Ud) 3 ml INH RQ4 [facility] Last Admin: 12/04/18 11:14 Dose: 3 ml Enoxaparin Sodium (Lovenox) 40 mg SC DAILY [facility]; Protocol Last Admin: 12/04/18 08:52 Dose: 40 mg Furosemide (Lasix) 60 mg IV DAILY [facility] Last Admin: 12/04/18 08:51 Dose: 60 mg Vancomycin HCl 1 gm/ Sodium (Chloride) 250 mls @ 166.667 mls/hr IVPB Q12 [facility]; Protocol Last Admin: 12/04/18 08:52 Dose: 166.667 mls/hr Piperacillin Sod/Tazobactam (Sod 3.375 gm/ Sodium Chloride) 100 mls @ 100 mls/hr IVPB Q6 [facility]; Protocol Last Admin: 12/04/18 09:00 Dose: 100 mls/hr Insulin Detemir (Levemir) 10 units SC HS [facility] Last Admin: 12/03/18 21:30 Dose: Not Given Insulin Human Regular (Humulin R) 0 units SC ACCU-CHECK [facility]; Protocol Last Admin: 12/04/18 12:14 Dose: Not Given Lorazepam (Ativan) 1 mg IVP Q4 PRN PRN Reason: Agitation Last Admin: 12/01/18 15:30 Dose: 1 mg Losartan Potassium (Cozaar) 25 mg PO DAILY [facility] Last Admin: 12/03/18 10:25 Dose: 25 mg Pantoprazole Sodium (Protonix Inj) 40 mg IVP DAILY [facility] Last Admin: 12/04/18 08:52 Dose: 40 mg Potassium Chloride (Potassium Chloride Oral Soln) 40 meq NG DAILY [facility] Last Admin: 12/03/18 10:21 Dose: 40 meq Spironolactone (Aldactone) 12.5 mg PO DAILY [facility] - Labs Labs: 12/04/18 05:36 12/04/18 05:36 Assessment and Plan - Assessment and Plan (Free Text) Assessment: Patient was personally seen and examined by me in rounds with residents. Available labs and diagnostic data reviewed. Case, Patient's condition and management plan discussed with residents in rounds. Agree with resident's progress note. Plan: As ordered.
--- NOTE | 2018-12-03 09:35 | CP.PCM.PN ---
Subjective - Date & Time of Evaluation Date of Evaluation: 12/03/18 Time of Evaluation: 09:35 - Subjective Subjective: OFF SEDATION MORE AWAKE AND ALERT STILL INTUBATED AND BEING VENTILATED Objective - Vital Signs/Intake and Output Vital Signs (last 24 hours): Temp Pulse Resp BP Pulse Ox 99.9 F H 82 12 136/63 97 12/03/18 08:00 12/03/18 08:00 12/03/18 08:00 12/03/18 08:00 12/03/18 08:00 Intake and Output: 12/03/18 12/03/18 06:59 18:59 Intake Total 1039 Output Total 400 Balance 639 - Medications Medications: Current Medications Acetaminophen (Tylenol 650mg/20.3ml Solution Ud) 650 mg GT Q6 PRN PRN Reason: temp of > 100.4 F Last Admin: 11/24/18 17:57 Dose: 650 mg Acetaminophen (Tylenol 650mg/20.3ml Solution Ud) 650 mg NG Q4 PRN PRN Reason: fever 100.4 or above Last Admin: 12/03/18 02:28 Dose: 650 mg Albuterol/Ipratropium (Duoneb 3 Mg/0.5 Mg (3 Ml) Ud) 3 ml INH RQ4 [facility] Last Admin: 12/03/18 08:22 Dose: 3 ml Enoxaparin Sodium (Lovenox) 40 mg SC DAILY [facility]; Protocol Last Admin: 12/02/18 08:38 Dose: 40 mg Furosemide (Lasix) 60 mg IV DAILY [facility] Last Admin: 12/02/18 09:30 Dose: 60 mg Vancomycin HCl 1 gm/ Sodium (Chloride) 250 mls @ 166.667 mls/hr IVPB Q12 [facility]; Protocol Last Admin: 12/02/18 20:29 Dose: 166.667 mls/hr Piperacillin Sod/Tazobactam (Sod 3.375 gm/ Sodium Chloride) 100 mls @ 100 mls/hr IVPB Q6 [facility]; Protocol Last Admin: 12/03/18 04:30 Dose: 100 mls/hr Insulin Detemir (Levemir) 10 units SC HS [facility] Last Admin: 12/02/18 21:42 Dose: 10 u Insulin Human Regular (Humulin R) 0 units SC ACCU-CHECK [facility]; Protocol Last Admin: 12/03/18 07:03 Dose: Not Given Lorazepam (Ativan) 1 mg IVP Q4 PRN PRN Reason: Agitation Last Admin: 12/01/18 15:30 Dose: 1 mg Losartan Potassium (Cozaar) 25 mg PO DAILY [facility] Last Admin: 12/02/18 08:38 Dose: 25 mg Pantoprazole Sodium (Protonix Inj) 40 mg IVP DAILY [facility] Last Admin: 12/02/18 08:37 Dose: 40 mg Potassium Chloride (Potassium Chloride Oral Soln) 40 meq NG DAILY [facility] Spironolactone (Aldactone) 12.5 mg PO DAILY [facility] - Labs Labs: 12/03/18 05:00 12/03/18 05:00 - Constitutional Appears: Chronically Ill - Head Exam Head Exam: ATRAUMATIC, NORMAL INSPECTION, NORMOCEPHALIC - Eye Exam Eye Exam: EOMI, Normal appearance, PERRL Pupil Exam: NORMAL ACCOMODATION, PERRL - ENT Exam ENT Exam: Mucous Membranes Moist, Normal Exam - Neck Exam Neck Exam: Full ROM, Normal Inspection. absent: Lymphadenopathy - Respiratory Exam Respiratory Exam: Prolonged Expiratory Phase, Rales Additional comments: ON THE VENT - Cardiovascular Exam Cardiovascular Exam: REGULAR RHYTHM, +S1, +S2. absent: Murmur - GI/Abdominal Exam GI & Abdominal Exam: Soft, Normal Bowel Sounds. absent: Tenderness - Rectal Exam Rectal Exam: NORMAL INSPECTION - Extremities Exam Extremities Exam: Full ROM, Normal Capillary Refill, Normal Inspection. absent: Joint Swelling, Pedal Edema - Back Exam Back Exam: NORMAL INSPECTION - Neurological Exam Neurological Exam: Alert, Awake, CN II-XII Intact - Skin Skin Exam: Dry, Intact, Normal Color, Warm Assessment and Plan - Assessment and Plan (Free Text) Assessment: HYPERCAPNEIC RESP FAILURE Plan: CONTINUE ATTEMPTS TO EXTUBATE
[2018-12-03] MEDS: Potassium Chloride 20 mEq/15 ml LIQ UD NG SCH (10:21)
[2018-12-03] MEDS: Enoxaparin 40 mg Syringe SC SCH (10:25)
--- NOTE | 2018-12-03 12:58 | PCM.PROC ---
Procedures Attestation:: I certify that I have explained the specified Operation(s) or Procedure(s), risks, benefits and reasonable alternatives to the Patient and/or other person responsible. The opportunity was given to ask questions and all questions answered - Extubation Clinical Parameters: Resolution/Stabilization of disease process, Hemodynamically Stable, Intact Cough/Gag Reflex, Acceptable Vent Settings (FIO2<50%, PEEP<8, PaO2>75, pH>7.25) Weaning Criteria Met: Yes General Weaning Approaches: Pressure Support Ventilation (PSV) Weaning Patient Condition: Patient has been successfully extubated and assessed Oxygen Therapy: O2 via Venti Mask Patient Tolerated Procedure: Well
--- NOTE | 2018-12-03 13:29 | CP.CCUPN ---
CCU Subjective - Physician Review Subjective (Free Text): Off sedation x 2 days. Remains intermittently somnolent, but easily awakens to verbal stimuli, tolerated SBTs with over an hour on CPAP PS with good tolerance, each breath showed improved TVs up to an avg of 330ml. Decision made to extubate, tolerated well, good spontaneous cough and no immediate stridor noted. Afebrile, no fever spikes overnight, Tmax 100.4F so far, SBP 100s 130s; HR 80s paced, fluid balance negative 0.8L. Urine output approx. 550ml overnight. ROS: No other pertinent negs or positives on 10+ system review due to sedation. PMSFH: All other Nursing and physician documentation reviewed to date; no new pertinent info noted relevant to current medical problems. EXAM- HEENT: no icterus, no gaze preference NECK: No JVD visible given short neck and overall obesity, supple, carotids equal upstroke bilat/no bruit CHEST: decreased BS at the bases, no wheezes audible bilaterally. HEART: regular, distant, S1S2, no rubs or murmurs noted ABD: soft, obese, nontender, no guarding, no organomegaly, BS hypoactive. EXT: +1 leg edema- SCDs on bilat, no calf tenderness or palpable cords, distal pulses intact and symmetrical. RUE single lumen PICC. NEURO: withdraws to pain, + tone in all extremities. SKIN: no rashes, warm and dry LABS: WBC= 5.1 HGB= 9.3 PLTs= 235K 7.50/54/102 Na= 141 K= 3.2 CL= 99 HCO3=37 BUN/Cr= 20/1.0 BS= 108 CXR: (my interp)- RML, LLL interstitial changes, Left hemidiaphragm not visib le. ETT tip position ok above mamadou. No overall improvement noted over the past several days again. IMPRESSION / MAJOR PROBLEMS NOW: 1. Acute Hypercapneic Resp Failure, 2 bilat Pneumonia / COPD Exacerbation 2. Metabolic Encephalopathy with AMS 2 #1 3. h/o CHF with DDysfx 4. h/o DM II PLAN: 1. extubated today after on MV x 12 days, monitor resp status for any further decline or need for return to MV. Check ABG in 1 hour. 2. Lasix today with K supplement. 3. Cardiology contemplating PA catheter placement today. 4. Considering CT brain to assess present neuromental status. No admission CT brain done given AMS. May need formal Neurology eval if CT brain nonconclusive.
--- NOTE | 2018-12-03 15:56 | CT ---
Date of service: 12/03/2018 PROCEDURE: CT HEAD WITHOUT CONTRAST. HISTORY: AMS COMPARISON: CT head dated 11/05/2018. TECHNIQUE: Axial computed tomography images were obtained through the head/brain without intravenous contrast. Radiation dose: Total exam DLP = 1130.36 mGy-cm. This CT exam was performed using one or more of the following dose reduction techniques: Automated exposure control, adjustment of the mA and/or kV according to patient size, and/or use of iterative reconstruction technique. FINDINGS: HEMORRHAGE: No intracranial hemorrhage. BRAIN: No mass effect or edema. Atrophy. Chronic microvascular ischemic changes. VENTRICLES: Unremarkable. No hydrocephalus. CALVARIUM: Unremarkable. PARANASAL SINUSES: Unremarkable as visualized. No significant inflammatory changes. MASTOID AIR CELLS: Bilateral mastoid air cell opacification. OTHER FINDINGS: None. IMPRESSION: Persistent bilateral mastoid air cell opacification. No acute intracranial pathology. Age-related changes. No significant interval change.
[2018-12-03 16:55] LABS: ABG ALLEN TEST YES; ARTERIAL BLOOD GAS HCO3 34.2 mmol/L (21-28); ARTERIAL BLOOD GAS O2 SAT 96.1 % (95-98); ARTERIAL BLOOD GAS PCO2 72 mm/Hg (35-45); ARTERIAL BLOOD GAS PH 7.36 (7.35-7.45); ARTERIAL BLOOD GAS PO2 70 mm/Hg (80-100); ARTERIAL BLOOD GAS TCO2 42.9 mmol/L (22-28)
--- NOTE | 2018-12-03 20:58 | CP.PCM.PN ---
<Pierce Yo - Last Filed: 12/03/18 20:55> Subjective - Date & Time of Evaluation Date of Evaluation: 12/03/18 Time of Evaluation: 09:00 - Subjective Subjective: Pierce Yo DO PGY1 - Internal Medicine Case Management Social Worker - Cardiology Consult Note for Dr. Kim Pt. seen and evaluated at bedside this morning; Febrile overnight HD Stable; Off of sedation; follows command - requires redirection Objective - Vital Signs/Intake and Output Vital Signs (last 24 hours): Temp Pulse Resp BP Pulse Ox 99.3 F 82 33 H 114/55 L 94 L 12/03/18 18:00 12/03/18 19:16 12/03/18 18:00 12/03/18 18:00 12/03/18 18:00 Intake and Output: 12/03/18 12/04/18 18:59 06:59 Intake Total 635 Output Total 1200 Balance -565 - Medications Medications: Current Medications Acetaminophen (Tylenol 650mg/20.3ml Solution Ud) 650 mg GT Q6 PRN PRN Reason: temp of > 100.4 F Last Admin: 11/24/18 17:57 Dose: 650 mg Acetaminophen (Tylenol 650mg/20.3ml Solution Ud) 650 mg NG Q4 PRN PRN Reason: fever 100.4 or above Last Admin: 12/03/18 10:36 Dose: 650 mg Albuterol/Ipratropium (Duoneb 3 Mg/0.5 Mg (3 Ml) Ud) 3 ml INH RQ4 JEANA Last Admin: 12/03/18 19:15 Dose: 3 ml Enoxaparin Sodium (Lovenox) 40 mg SC DAILY [facility]; Protocol Last Admin: 12/03/18 10:25 Dose: 40 mg Furosemide (Lasix) 60 mg IV DAILY [facility]NA Last Admin: 12/03/18 10:22 Dose: 60 mg Vancomycin HCl 1 gm/ Sodium (Chloride) 250 mls @ 166.667 mls/hr IVPB Q12 [facility]; Protocol Last Admin: 12/03/18 11:50 Dose: Not Given Piperacillin Sod/Tazobactam (Sod 3.375 gm/ Sodium Chloride) 100 mls @ 100 mls/hr IVPB Q6 [facility]; Protocol Last Admin: 12/03/18 17:41 Dose: 100 mls/hr Insulin Detemir (Levemir) 10 units SC HS [facility]NA Last Admin: 12/02/18 21:42 Dose: 10 u Insulin Human Regular (Humulin R) 0 units SC ACCU-CHECK [facility]; Protocol Last Admin: 12/03/18 17:41 Dose: Not Given Lorazepam (Ativan) 1 mg IVP Q4 PRN PRN Reason: Agitation Last Admin: 12/01/18 15:30 Dose: 1 mg Losartan Potassium (Cozaar) 25 mg PO DAILY [facility] Last Admin: 12/03/18 10:25 Dose: 25 mg Pantoprazole Sodium (Protonix Inj) 40 mg IVP DAILY [facility] Last Admin: 12/03/18 10:21 Dose: 40 mg Potassium Chloride (Potassium Chloride Oral Soln) 40 meq NG DAILY [facility] Last Admin: 12/03/18 10:21 Dose: 40 meq Spironolactone (Aldactone) 12.5 mg PO DAILY [facility] - Labs Labs: 12/03/18 05:00 12/03/18 05:00 - Constitutional Appears: Non-toxic, No Acute Distress, Responsive to verbal command however lethargic - Eye Exam Eye Exam: PERRL. absent: Scleral icterus - ENT Exam Additional comments: ET tube in place - Respiratory Exam Respiratory Exam: Clear to Ausculation Bilateral, NORMAL BREATHING PATTERN - Cardiovascular Exam Cardiovascular Exam: RRR, +S1, +S2. absent: Murmur - GI/Abdominal Exam GI & Abdominal Exam: Soft - Extremities Exam Extremities Exam: Pedal Edema Additional comments: Upper extremity edematous - Neurological Exam Additional comments: intubated - Skin Skin Exam: Dry, Normal Color, Warm Assessment and Plan - Assessment and Plan (Free Text) Plan[facility] Will C/w Cozaar 25 QD, Aldactone 12.5 QD Consider neurologic etiology for recurrent respiratory distress <Douglas Kim - Last Filed: 12/04/18 22:06> Objective - Vital Signs/Intake and Output Vital Signs (last 24 hours): Temp Pulse Resp BP Pulse Ox 99.0 F 86 17 122/59 L 94 L 12/04/18 16:00 12/04/18 18:00 12/04/18 18:00 12/04/18 18:00 12/04/18 18:00 Intake and Output: 12/04/18 12/05/18 18:59 06:59 Intake Total 1050 Output Total 2024 Balance -975 - Medications Medications: Current Medications Acetaminophen (Tylenol 650mg/20.3ml Solution Ud) 650 mg GT Q6 PRN PRN Reason: temp of > 100.4 F Last Admin: 11/24/18 17:57 Dose: 650 mg Acetaminophen (Tylenol 650mg/20.3ml Solution Ud) 650 mg NG Q4 PRN PRN Reason: fever 100.4 or above Last Admin: 12/03/18 10:36 Dose: 650 mg Albuterol/Ipratropium (Duoneb 3 Mg/0.5 Mg (3 Ml) Ud) 3 ml INH RQ4 JEANA Last Admin: 12/04/18 19:08 Dose: 3 ml Enoxaparin Sodium (Lovenox) 40 mg SC DAILY [facility]; Protocol Last Admin: 12/04/18 08:52 Dose: 40 mg Furosemide (Lasix) 60 mg IV DAILY [facility] Last Admin: 12/04/18 08:51 Dose: 60 mg Vancomycin HCl 1 gm/ Sodium (Chloride) 250 mls @ 166.667 mls/hr IVPB Q12 [facility]; Protocol Last Admin: 12/04/18 21:28 Dose: 166.667 mls/hr Piperacillin Sod/Tazobactam (Sod 3.375 gm/ Sodium Chloride) 100 mls @ 100 mls/hr IVPB Q6 [facility]; Protocol Last Admin: 12/04/18 21:27 Dose: 100 mls/hr Insulin Detemir (Levemir) 10 units SC HS [facility] Last Admin: 12/04/18 21:29 Dose: 10 u Insulin Human Regular (Humulin R) 0 units SC ACCU-CHECK [facility]; Protocol Last Admin: 12/04/18 22:05 Dose: Not Given Lorazepam (Ativan) 1 mg IVP Q4 PRN PRN Reason: Agitation Last Admin: 12/01/18 15:30 Dose: 1 mg Losartan Potassium (Cozaar) 25 mg PO DAILY [facility] Last Admin: 12/04/18 16:21 Dose: Not Given Pantoprazole Sodium (Protonix Inj) 40 mg IVP DAILY [facility] Last Admin: 12/04/18 08:52 Dose: 40 mg Potassium Chloride (Potassium Chloride Oral Soln) 40 meq NG DAILY [facility] Last Admin: 12/04/18 16:21 Dose: Not Given Spironolactone (Aldactone) 12.5 mg PO DAILY [facility] - Labs Labs: 12/04/18 05:36 12/04/18 05:36 Attending/Attestation - Attestation I have personally seen and examined this patient.: Yes I have fully participated in the care of the patient.: Yes I have reviewed all pertinent clinical information, including history, physical exam and plan: Yes
[2018-12-03] MEDS: Insulin Detemir 100 Units/ml Inj SC SCH (21:30)
[2018-12-04] MEDS: Albuterol-Ipratrop 3 mg / 0.5 (3 ml) UD INH SCH ×6 (00:46→19:08)
[2018-12-04] MEDS: Piperacillin/Tazobact 3.375 GM in Sodium Chloride 0.9% 100 ML IVPB SCH ×4 (04:30→21:27)
[2018-12-04 06:09] LABS: BASO % 0.7 % (0.0-2.0); EOS # 0.4 K/uL (0.0-0.7); EOS % 8.3 % (0.0-4.0); HEMOGLOBIN 9.3 g/dL (12.0-16.0); LYMPH # 0.9 K/uL (1.0-4.3); LYMPH % 19.6 % (20.0-40.0); MEAN CELL VOLUME 85.4 fl (81.0-99.0); MEAN CORPUSCULAR HEMOGLOBIN 27.1 pg (27.0-31.0); MEAN CORPUSCULAR HGB CONC 31.7 g/dL (33.0-37.0); MEAN PLATELET VOLUME 9.3 fl (7.2-11.7); MONO # 0.5 K/uL (0.0-0.8); MONO % 10.9 % (0.0-10.0); NEUT # 2.9 K/uL (1.8-7.0); NEUT % 60.5 % (50.0-75.0); RBC 3.44 Mil/uL (3.80-5.20); RED CELL DISTRIBUTION WIDTH 21.4 % (11.5-14.5); WHITE BLOOD COUNT 4.8 K/uL (4.8-10.8)
[2018-12-04 06:56] LABS: ALB/GLOB RATIO 0.9 (1.0-2.1); ALBUMIN 2.9 g/dL (3.5-5.0); ALT/SGPT 31 U/L (9-52); AST/SGOT 38 U/L (14-36); BLOOD UREA NITROGEN 21 mg/dl (7-17); CALCIUM 9.2 mg/dL (8.4-10.2); GFR NON-AFRICAN AMERICAN 53
--- NOTE | 2018-12-04 07:26 | CP.PCM.PN ---
<Elmira Russ - Last Filed: 12/04/18 10:35> Subjective - Date & Time of Evaluation Date of Evaluation: 12/04/18 Time of Evaluation: 07:24 - Subjective Subjective: Pt was on BIPAP overnight. Pt was extubated yesterday. No acute overnight events. Pt seen and examined by bedside this AM. Responds to voice, moving all ext On Bipap machine, mask on face. Objective - Vital Signs/Intake and Output Vital Signs (last 24 hours): Temp Pulse Resp BP Pulse Ox 98.1 F 75 16 134/64 94 L 12/04/18 04:00 12/04/18 06:18 12/04/18 06:00 12/04/18 06:00 12/04/18 06:00 Intake and Output: 12/04/18 12/04/18 06:59 18:59 Intake Total 350 Output Total 400 Balance -50 - Medications Medications: Current Medications Acetaminophen (Tylenol 650mg/20.3ml Solution Ud) 650 mg GT Q6 PRN PRN Reason: temp of > 100.4 F Last Admin: 11/24/18 17:57 Dose: 650 mg Acetaminophen (Tylenol 650mg/20.3ml Solution Ud) 650 mg NG Q4 PRN PRN Reason: fever 100.4 or above Last Admin: 12/03/18 10:36 Dose: 650 mg Albuterol/Ipratropium (Duoneb 3 Mg/0.5 Mg (3 Ml) Ud) 3 ml INH RQ4 JEANA Last Admin: 12/04/18 04:16 Dose: 3 ml Enoxaparin Sodium (Lovenox) 40 mg SC DAILY [facility]; Protocol Last Admin: 12/03/18 10:25 Dose: 40 mg Furosemide (Lasix) 60 mg IV DAILY [facility] Last Admin: 12/03/18 10:22 Dose: 60 mg Vancomycin HCl 1 gm/ Sodium (Chloride) 250 mls @ 166.667 mls/hr IVPB Q12 [facility]; Protocol Last Admin: 12/03/18 21:25 Dose: 166.667 mls/hr Piperacillin Sod/Tazobactam (Sod 3.375 gm/ Sodium Chloride) 100 mls @ 100 mls/hr IVPB Q6 [facility]; Protocol Last Admin: 12/04/18 04:30 Dose: 100 mls/hr Insulin Detemir (Levemir) 10 units SC [facility] Last Admin: 12/03/18 21:30 Dose: Not Given Insulin Human Regular (Humulin R) 0 units SC ACCU-CHECK [facility]; Protocol Last Admin: 12/03/18 23:42 Dose: Not Given Lorazepam (Ativan) 1 mg IVP Q4 PRN PRN Reason: Agitation Last Admin: 12/01/18 15:30 Dose: 1 mg Losartan Potassium (Cozaar) 25 mg PO DAILY [facility] Last Admin: 12/03/18 10:25 Dose: 25 mg Pantoprazole Sodium (Protonix Inj) 40 mg IVP DAILY [facility] Last Admin: 12/03/18 10:21 Dose: 40 mg Potassium Chloride (Potassium Chloride Oral Soln) 40 meq NG DAILY [facility] Last Admin: 12/03/18 10:21 Dose: 40 meq Spironolactone (Aldactone) 12.5 mg PO DAILY [facility] - Labs Labs: 12/04/18 05:36 12/04/18 05:36 - Constitutional Appears: No Acute Distress, Other (mask on face) - Eye Exam Eye Exam: Normal appearance - Respiratory Exam Respiratory Exam: Decreased Breath Sounds (in the lower lobes), NORMAL BREATHING PATTERN. absent: Wheezes - Cardiovascular Exam Cardiovascular Exam: REGULAR RHYTHM, +S1, +S2 - GI/Abdominal Exam GI & Abdominal Exam: Soft, Normal Bowel Sounds. absent: Tenderness - Neurological Exam Neurological Exam: Alert, Awake Assessment and Plan (1) Bacteremia Status: Acute (2) Sepsis Status: Acute (3) CHF (congestive heart failure) Status: Chronic (4) Respiratory failure Status: Acute (5) Anemia Status: Chronic (6) Pleural effusion Status: Acute - Assessment and Plan (Free Text) Assessment: Assessment/Plan: 83 YO female with PMHx of HTN, CHF (w/ pacemaker), DM, hypothyroidism, admitted due to recurrent hypercapneic respiratory failure. Patient brought to ED on 11/22/18 for [place]ONIA due to AMS, intubated and admitted to ICU. -Recurrent hypercapneic respiratory failure s/p intubation and on MV on 11/22/18 pulmonary on board, CXR appreciated (11/30) sig for L pleural effusion, small Intubated, off sedation Wean off when tolerating in preparation of extubation c/w with IV abx-Vac and Zosyn -Encephalopathy Likely 2/2 to hypercapnia, respiratory failure C/to monitor Ct Head no acute findings Neurology consult if no improvement is noted -CHF, pacemaker, chronic Cardiology on board, [facility] cath today? -Bacteremia, sepsis Blood cx 11/22/18: Gram positive cocci in pairs ID on board BCx 11/24 neg c/w Vancomycin and Zosyn -Anemia, Normocytic likely acute on chronic No acute source of GI bleed Pleural effusion, L improving 2/2 heart failure, fluid status, renal status Diastolic dysfunction on echo 10/27 as noted on CXR, atelectasis questionable infiltrate c/w iv Abx, IV lasix 60 daily, KCL 40 meq daily Potassium replacement as needed -DVT prophylx: Lovenox SC <Zhang,Nakul K - Last Filed: 12/04/18 13:24> Objective - Vital Signs/Intake and Output Vital Signs (last 24 hours): Temp Pulse Resp BP Pulse Ox 98.3 F 84 28 H 124/59 L 93 L 12/04/18 12:00 12/04/18 12:00 12/04/18 12:00 12/04/18 12:00 12/04/18 12:00 Intake and Output: 12/04/18 12/04/18 11:59 23:59 Intake Total 350 Output Total 1600 325 Balance -1250 -325 - Medications Medications: Current Medications Acetaminophen (Tylenol 650mg/20.3ml Solution Ud) 650 mg GT Q6 PRN PRN Reason: temp of > 100.4 F Last Admin: 11/24/18 17:57 Dose: 650 mg Acetaminophen (Tylenol 650mg/20.3ml Solution Ud) 650 mg NG Q4 PRN PRN Reason: fever 100.4 or above Last Admin: 12/03/18 10:36 Dose: 650 mg Albuterol/Ipratropium (Duoneb 3 Mg/0.5 Mg (3 Ml) Ud) 3 ml INH RQ4 JEANA Last Admin: 12/04/18 11:14 Dose: 3 ml Enoxaparin Sodium (Lovenox) 40 mg SC DAILY [facility]; Protocol Last Admin: 12/04/18 08:52 Dose: 40 mg Furosemide (Lasix) 60 mg IV DAILY [facility] Last Admin: 12/04/18 08:51 Dose: 60 mg Vancomycin HCl 1 gm/ Sodium (Chloride) 250 mls @ 166.667 mls/hr IVPB Q12 [facility]; Protocol Last Admin: 12/04/18 08:52 Dose: 166.667 mls/hr Piperacillin Sod/Tazobactam (Sod 3.375 gm/ Sodium Chloride) 100 mls @ 100 mls/hr IVPB Q6 [facility]; Protocol Last Admin: 12/04/18 09:00 Dose: 100 mls/hr Insulin Detemir (Levemir) 10 units SC HS [facility] Last Admin: 12/03/18 21:30 Dose: Not Given Insulin Human Regular (Humulin R) 0 units SC ACCU-CHECK [facility]; Protocol Last Admin: 12/04/18 12:14 Dose: Not Given Lorazepam (Ativan) 1 mg IVP Q4 PRN PRN Reason: Agitation Last Admin: 12/01/18 15:30 Dose: 1 mg Losartan Potassium (Cozaar) 25 mg PO DAILY [facility] Last Admin: 12/03/18 10:25 Dose: 25 mg Pantoprazole Sodium (Protonix Inj) 40 mg IVP DAILY [facility] Last Admin: 12/04/18 08:52 Dose: 40 mg Potassium Chloride (Potassium Chloride Oral Soln) 40 meq NG DAILY [facility] Last Admin: 12/03/18 10:21 Dose: 40 meq Spironolactone (Aldactone) 12.5 mg PO DAILY [facility] - Labs Labs: 12/04/18 05:36 12/04/18 05:36 Assessment and Plan - Assessment and Plan (Free Text) Assessment: Patient was personally seen and examined by me in rounds with residents. Available labs and diagnostic data reviewed. Case, Patient's condition and management plan discussed with residents in rounds. Agree with resident's progress note. Plan: As ordered.
--- NOTE | 2018-12-04 08:22 | CP.CCUPN ---
CCU Subjective - Physician Review Subjective (Free Text): Extubated yesterday after being on MV support for 12 days, placed onto BiPAP last evening into overnight for lethargy. This AM, BiPAP removed with marked improvement in patient;s mentation and responsiveness, asking for mask to be removed and requesting water. Afebrile, no fever spikes overnight, Tmax 100.4F, SBP 110-140s; HR 80s paced, fluid balance negative 0.6L. ROS: No other pertinent negs or positives on 10+ system review. PMSFH: All other Nursing and physician documentation reviewed to date; no new pertinent info noted relevant to current medical problems. EXAM- HEENT: no icterus, no gaze preference NECK: No JVD visible given short neck and overall obesity, supple, carotids equal upstroke bilat/no bruit CHEST: decreased BS at the bases, no wheezes audible bilaterally. HEART: regular, distant, S1S2, no rubs or murmurs noted ABD: soft, obese, nontender, no guarding, no organomegaly, BS hypoactive. EXT: +1 leg edema- SCDs on bilat, no calf tenderness or palpable cords, distal pulses intact and symmetrical. RUE single lumen PICC. NEURO: withdraws to pain, + tone in all extremities. SKIN: no rashes, warm and dry LABS: WBC= 4.8 HGB= 9.3 PLTs= 228K Na= 144 K= 3.5 CL= 103 HCO3=36 BUN/Cr= 21/1.0 BS= 108 CT Brain negative for acute pathology. IMPRESSION / MAJOR PROBLEMS NOW: 1. Acute Hypercapneic Resp Failure, 2 bilat Pneumonia / COPD Exacerbation 2. Metabolic Encephalopathy with AMS 2 #1 3. h/o CHF with DDysfx 4. h/o DM II PLAN: 1. Nasal cannula oxygen support today with nighttime BiPAP. monitor resp status for any further decline or need for return to MV. Check ABG today. 2. Lasix today with K supplement. 3. Cardiology contemplating PA catheter placement today. 4. With improvement in neuromental status now, most likely 2' metabolic encephalopathy from hypercarbia, could hold on formal Neurology eval. 5. Encourage incentive spirometry, place bed into chair configuration if possible , or try to mobilize OOB. 6. Check a BNP level today.
[2018-12-04] MEDS: Insulin Regular 100 units/ml SC SCH ×4 (08:51→22:05)
[2018-12-04] MEDS: Enoxaparin 40 mg Syringe SC SCH (08:52)
[2018-12-04 10:34] LABS: ABG ALLEN TEST YES; ARTERIAL BLOOD GAS HCO3 35.5 mmol/L (21-28); ARTERIAL BLOOD GAS O2 SAT 93.6 % (95-98); ARTERIAL BLOOD GAS PCO2 57 mm/Hg (35-45); ARTERIAL BLOOD GAS PH 7.45 (7.35-7.45); ARTERIAL BLOOD GAS PO2 56 mm/Hg (80-100); ARTERIAL BLOOD GAS TCO2 41.3 mmol/L (22-28)
--- NOTE | 2018-12-04 12:47 | CP.PCM.PN ---
Subjective - Date & Time of Evaluation Date of Evaluation: 12/04/18 Time of Evaluation: 12:47 - Subjective Subjective: EXTUBATED AWAKE AND ALERT O2 SAT 93% Objective - Vital Signs/Intake and Output Vital Signs (last 24 hours): Temp Pulse Resp BP Pulse Ox 98.3 F 84 28 H 124/59 L 93 L 12/04/18 12:00 12/04/18 12:00 12/04/18 12:00 12/04/18 12:00 12/04/18 12:00 Intake and Output: 12/04/18 12/04/18 06:59 18:59 Intake Total 350 350 Output Total 400 5015 Balance -50 -1175 - Medications Medications: Current Medications Acetaminophen (Tylenol 650mg/20.3ml Solution Ud) 650 mg GT Q6 PRN PRN Reason: temp of > 100.4 F Last Admin: 11/24/18 17:57 Dose: 650 mg Acetaminophen (Tylenol 650mg/20.3ml Solution Ud) 650 mg NG Q4 PRN PRN Reason: fever 100.4 or above Last Admin: 12/03/18 10:36 Dose: 650 mg Albuterol/Ipratropium (Duoneb 3 Mg/0.5 Mg (3 Ml) Ud) 3 ml INH RQ4 JEANA Last Admin: 12/04/18 11:14 Dose: 3 ml Enoxaparin Sodium (Lovenox) 40 mg SC DAILY [facility]; Protocol Last Admin: 12/04/18 08:52 Dose: 40 mg Furosemide (Lasix) 60 mg IV DAILY [facility] Last Admin: 12/04/18 08:51 Dose: 60 mg Vancomycin HCl 1 gm/ Sodium (Chloride) 250 mls @ 166.667 mls/hr IVPB Q12 [facility]; Protocol Last Admin: 12/04/18 08:52 Dose: 166.667 mls/hr Piperacillin Sod/Tazobactam (Sod 3.375 gm/ Sodium Chloride) 100 mls @ 100 mls/hr IVPB Q6 [facility]; Protocol Last Admin: 12/04/18 09:00 Dose: 100 mls/hr Insulin Detemir (Levemir) 10 units SC HS [facility] Last Admin: 12/03/18 21:30 Dose: Not Given Insulin Human Regular (Humulin R) 0 units SC ACCU-CHECK [facility]; Protocol Last Admin: 12/04/18 12:14 Dose: Not Given Lorazepam (Ativan) 1 mg IVP Q4 PRN PRN Reason: Agitation Last Admin: 12/01/18 15:30 Dose: 1 mg Losartan Potassium (Cozaar) 25 mg PO DAILY [facility] Last Admin: 12/03/18 10:25 Dose: 25 mg Pantoprazole Sodium (Protonix Inj) 40 mg IVP DAILY [facility] Last Admin: 12/04/18 08:52 Dose: 40 mg Potassium Chloride (Potassium Chloride Oral Soln) 40 meq NG DAILY [facility] Last Admin: 12/03/18 10:21 Dose: 40 meq Spironolactone (Aldactone) 12.5 mg PO DAILY [facility] - Labs Labs: 12/04/18 05:36 12/04/18 05:36 - Constitutional Appears: Chronically Ill - Head Exam Head Exam: ATRAUMATIC, NORMAL INSPECTION, NORMOCEPHALIC - Eye Exam Eye Exam: EOMI, Normal appearance, PERRL Pupil Exam: NORMAL ACCOMODATION, PERRL - ENT Exam ENT Exam: Mucous Membranes Moist, Normal Exam - Neck Exam Neck Exam: Full ROM, Normal Inspection. absent: Lymphadenopathy - Respiratory Exam Respiratory Exam: Decreased Breath Sounds, Prolonged Expiratory Phase, Rales, NORMAL BREATHING PATTERN - Cardiovascular Exam Cardiovascular Exam: REGULAR RHYTHM, +S1, +S2. absent: Murmur - GI/Abdominal Exam GI & Abdominal Exam: Soft, Normal Bowel Sounds. absent: Tenderness - Rectal Exam Rectal Exam: NORMAL INSPECTION - Extremities Exam Extremities Exam: Full ROM, Normal Capillary Refill, Normal Inspection. absent: Joint Swelling, Pedal Edema - Back Exam Back Exam: NORMAL INSPECTION - Neurological Exam Neurological Exam: Alert, Awake, CN II-XII Intact - Skin Skin Exam: Dry, Intact, Normal Color, Warm Assessment and Plan - Assessment and Plan (Free Text) Assessment: COPD RESP FAILURE--IMPROVING CHF/PNEUMONIA Plan: CONTINUE CURRENT RX
--- NOTE | 2018-12-04 14:06 | CP.PCM.PN ---
Subjective - Date & Time of Evaluation Date of Evaluation: 12/04/18 Time of Evaluation: 09:00 - Subjective Subjective: awake alert extubated NAD Objective - Vital Signs/Intake and Output Vital Signs (last 24 hours): Temp Pulse Resp BP Pulse Ox 98.3 F 84 28 H 124/59 L 93 L 12/04/18 12:00 12/04/18 12:00 12/04/18 12:00 12/04/18 12:00 12/04/18 12:00 Intake and Output: 12/04/18 12/04/18 06:59 18:59 Intake Total 350 350 Output Total 400 1525 Balance -50 -1175 - Medications Medications: Current Medications Acetaminophen (Tylenol 650mg/20.3ml Solution Ud) 650 mg GT Q6 PRN PRN Reason: temp of > 100.4 F Last Admin: 11/24/18 17:57 Dose: 650 mg Acetaminophen (Tylenol 650mg/20.3ml Solution Ud) 650 mg NG Q4 PRN PRN Reason: fever 100.4 or above Last Admin: 12/03/18 10:36 Dose: 650 mg Albuterol/Ipratropium (Duoneb 3 Mg/0.5 Mg (3 Ml) Ud) 3 ml INH RQ4 [facility] Last Admin: 12/04/18 11:14 Dose: 3 ml Enoxaparin Sodium (Lovenox) 40 mg SC DAILY [facility]; Protocol Last Admin: 12/04/18 08:52 Dose: 40 mg Furosemide (Lasix) 60 mg IV DAILY [facility] Last Admin: 12/04/18 08:51 Dose: 60 mg Vancomycin HCl 1 gm/ Sodium (Chloride) 250 mls @ 166.667 mls/hr IVPB Q12 [facility]; Protocol Last Admin: 12/04/18 08:52 Dose: 166.667 mls/hr Piperacillin Sod/Tazobactam (Sod 3.375 gm/ Sodium Chloride) 100 mls @ 100 mls/hr IVPB Q6 [facility]; Protocol Last Admin: 12/04/18 09:00 Dose: 100 mls/hr Insulin Detemir (Levemir) 10 units SC HS [facility] Last Admin: 12/03/18 21:30 Dose: Not Given Insulin Human Regular (Humulin R) 0 units SC ACCU-CHECK [facility]; Protocol Last Admin: 12/04/18 12:14 Dose: Not Given Lorazepam (Ativan) 1 mg IVP Q4 PRN PRN Reason: Agitation Last Admin: 12/01/18 15:30 Dose: 1 mg Losartan Potassium (Cozaar) 25 mg PO DAILY [facility] Last Admin: 12/03/18 10:25 Dose: 25 mg Pantoprazole Sodium (Protonix Inj) 40 mg IVP DAILY [facility] Last Admin: 12/04/18 08:52 Dose: 40 mg Potassium Chloride (Potassium Chloride Oral Soln) 40 meq NG DAILY [facility] Last Admin: 12/03/18 10:21 Dose: 40 meq Spironolactone (Aldactone) 12.5 mg PO DAILY [facility] - Labs Labs: 12/04/18 05:36 12/04/18 05:36 - Constitutional Appears: Non-toxic, Chronically Ill - Head Exam Head Exam: NORMOCEPHALIC - Eye Exam Eye Exam: absent: Scleral icterus - ENT Exam ENT Exam: Mucous Membranes Dry - Neck Exam Neck Exam: absent: Lymphadenopathy - Respiratory Exam Respiratory Exam: Decreased Breath Sounds - Cardiovascular Exam Cardiovascular Exam: REGULAR RHYTHM - GI/Abdominal Exam GI & Abdominal Exam: Distended, Soft - Rectal Exam Rectal Exam: Deferred - Exam Exam: NORMAL INSPECTION Assessment and Plan (1) Acute respiratory failure with hypoxia and hypercarbia Status: Acute (2) Bacteremia Status: Acute (3) Diabetes mellitus type 2 in obese Status: Acute (4) Pleural effusion Status: Acute (5) Respiratory failure Status: Acute - Assessment and Plan (Free Text) Assessment: cont rx as per Dr Reeves
[2018-12-04] MEDS: Potassium Chloride 20 mEq/15 ml LIQ UD NG SCH (16:21)
--- NOTE | 2018-12-04 17:39 | CP.PCM.PN ---
<Pierce Yo - Last Filed: 12/04/18 19:40> Subjective - Date & Time of Evaluation Date of Evaluation: 12/04/18 Time of Evaluation: 11:00 - Subjective Subjective: Pierce Yo DO PGY1 - Internal Medicine Research Test Engine Operator - Cardiology Consult Note for Dr. Kim Patient was seen and examined at bedside this morning no acute events reported overnight, patient is afebrile. No longer intubated off of sedation. Appropriately following commands voicing no complaints at this time other than being thirsty Explained to patient that she would require swallow eval. Objective - Vital Signs/Intake and Output Vital Signs (last 24 hours): Temp Pulse Resp BP Pulse Ox 99.0 F 88 18 132/43 L 92 L 12/04/18 16:00 12/04/18 16:00 12/04/18 16:00 12/04/18 16:00 12/04/18 16:00 Intake and Output: 12/04/18 12/04/18 06:59 18:59 Intake Total 350 450 Output Total 400 1900 Balance -50 -1450 - Medications Medications: Current Medications Acetaminophen (Tylenol 650mg/20.3ml Solution Ud) 650 mg GT Q6 PRN PRN Reason: temp of > 100.4 F Last Admin: 11/24/18 17:57 Dose: 650 mg Acetaminophen (Tylenol 650mg/20.3ml Solution Ud) 650 mg NG Q4 PRN PRN Reason: fever 100.4 or above Last Admin: 12/03/18 10:36 Dose: 650 mg Albuterol/Ipratropium (Duoneb 3 Mg/0.5 Mg (3 Ml) Ud) 3 ml INH RQ4 [facility] Last Admin: 12/04/18 15:28 Dose: 3 ml Enoxaparin Sodium (Lovenox) 40 mg SC DAILY [facility]; Protocol Last Admin: 12/04/18 08:52 Dose: 40 mg Furosemide (Lasix) 60 mg IV DAILY [facility] Last Admin: 12/04/18 08:51 Dose: 60 mg Vancomycin HCl 1 gm/ Sodium (Chloride) 250 mls @ 166.667 mls/hr IVPB Q12 [facility]; Protocol Last Admin: 12/04/18 08:52 Dose: 166.667 mls/hr Piperacillin Sod/Tazobactam (Sod 3.375 gm/ Sodium Chloride) 100 mls @ 100 mls/hr IVPB Q6 [facility]; Protocol Last Admin: 12/04/18 16:22 Dose: 100 mls/hr Insulin Detemir (Levemir) 10 units SC HS [facility] Last Admin: 12/03/18 21:30 Dose: Not Given Insulin Human Regular (Humulin R) 0 units SC ACCU-CHECK [facility]; Protocol Last Admin: 12/04/18 16:55 Dose: Not Given Lorazepam (Ativan) 1 mg IVP Q4 PRN PRN Reason: Agitation Last Admin: 12/01/18 15:30 Dose: 1 mg Losartan Potassium (Cozaar) 25 mg PO DAILY [facility] Last Admin: 12/04/18 16:21 Dose: Not Given Pantoprazole Sodium (Protonix Inj) 40 mg IVP DAILY [facility] Last Admin: 12/04/18 08:52 Dose: 40 mg Potassium Chloride (Potassium Chloride Oral Soln) 40 meq NG DAILY [facility] Last Admin: 12/04/18 16:21 Dose: Not Given Spironolactone (Aldactone) 12.5 mg PO DAILY [facility] - Labs Labs: 12/04/18 05:36 12/04/18 05:36 - Constitutional Appears: Non-Toxic, NAD, Lethargic however much improved from day prior - Eye Exam Eye Exam: PERRL. absent: Scleral icterus - ENT Exam Additional comments: Dry mucous membrane - Respiratory Exam Respiratory Exam: Clear to Ausculation Bilateral, NORMAL BREATHING PATTERN - Cardiovascular Exam Cardiovascular Exam: RRR, +S1, +S2. absent: Murmur - GI/Abdominal Exam GI & Abdominal Exam: Soft - Extremities Exam Extremities Exam: Pedal Edema Additional comments: Upper extremity edematous - Neurological Exam Additional comments: Lethargic however following commands - Skin Skin Exam: Dry, Normal Color, Warm Assessment and Plan (1) Acute respiratory failure with hypoxia and hypercarbia Status: Acute (2) Diabetes mellitus type 2 in obese Status: Acute (3) Hypertension Status: Acute - Assessment and Plan (Free Text) Plan: Will C/w Cozaar 25 QD, Aldactone 12.5 QD Will consider for complete heart cath friday Etiology of recurrent respiratory failure undetermined at this time <Douglas Kim - Last Filed: 12/04/18 22:05> Objective - Vital Signs/Intake and Output Vital Signs (last 24 hours): Temp Pulse Resp BP Pulse Ox 99.0 F 86 17 122/59 L 94 L 12/04/18 16:00 12/04/18 18:00 12/04/18 18:00 12/04/18 18:00 12/04/18 18:00 Intake and Output: 12/04/18 12/05/18 18:59 06:59 Intake Total 1050 Output Total 2025 Balance -975 - Medications Medications: Current Medications Acetaminophen (Tylenol 650mg/20.3ml Solution Ud) 650 mg GT Q6 PRN PRN Reason: temp of > 100.4 F Last Admin: 11/24/18 17:57 Dose: 650 mg Acetaminophen (Tylenol 650mg/20.3ml Solution Ud) 650 mg NG Q4 PRN PRN Reason: fever 100.4 or above Last Admin: 12/03/18 10:36 Dose: 650 mg Albuterol/Ipratropium (Duoneb 3 Mg/0.5 Mg (3 Ml) Ud) 3 ml INH RQ4 [facility] Last Admin: 12/04/18 19:08 Dose: 3 ml Enoxaparin Sodium (Lovenox) 40 mg SC DAILY [facility]; Protocol Last Admin: 12/04/18 08:52 Dose: 40 mg Furosemide (Lasix) 60 mg IV DAILY [facility] Last Admin: 12/04/18 08:51 Dose: 60 mg Vancomycin HCl 1 gm/ Sodium (Chloride) 250 mls @ 166.667 mls/hr IVPB Q12 [facility]; Protocol Last Admin: 12/04/18 21:28 Dose: 166.667 mls/hr Piperacillin Sod/Tazobactam (Sod 3.375 gm/ Sodium Chloride) 100 mls @ 100 mls/hr IVPB Q6 [facility]; Protocol Last Admin: 12/04/18 21:27 Dose: 100 mls/hr Insulin Detemir (Levemir) 10 units SC HS [facility] Last Admin: 12/04/18 21:29 Dose: 10 u Insulin Human Regular (Humulin R) 0 units SC ACCU-CHECK [facility]; Protocol Last Admin: 12/04/18 22:05 Dose: Not Given Lorazepam (Ativan) 1 mg IVP Q4 PRN PRN Reason: Agitation Last Admin: 12/01/18 15:30 Dose: 1 mg Losartan Potassium (Cozaar) 25 mg PO DAILY [facility] Last Admin: 12/04/18 16:21 Dose: Not Given Pantoprazole Sodium (Protonix Inj) 40 mg IVP DAILY [facility] Last Admin: 12/04/18 08:52 Dose: 40 mg Potassium Chloride (Potassium Chloride Oral Soln) 40 meq NG DAILY [facility] Last Admin: 12/04/18 16:21 Dose: Not Given Spironolactone (Aldactone) 12.5 mg PO DAILY [facility] - Labs Labs: 12/04/18 05:36 12/04/18 05:36 Attending/Attestation - Attestation I have personally seen and examined this patient.: Yes I have fully participated in the care of the patient.: Yes I have reviewed all pertinent clinical information, including history, physical exam and plan: Yes
[2018-12-04] MEDS: Insulin Detemir 100 Units/ml Inj SC SCH (21:29)
[2018-12-05] MEDS: Albuterol-Ipratrop 3 mg / 0.5 (3 ml) UD INH SCH ×7 (00:06→23:40)
[2018-12-05] MEDS: Piperacillin/Tazobact 3.375 GM in Sodium Chloride 0.9% 100 ML IVPB SCH ×4 (04:26→21:43)
[2018-12-05 06:35] LABS: HEMOGLOBIN 9.7 g/dL (12.0-16.0); MEAN CELL VOLUME 86.4 fl (81.0-99.0); MEAN CORPUSCULAR HEMOGLOBIN 27.1 pg (27.0-31.0); MEAN CORPUSCULAR HGB CONC 31.4 g/dL (33.0-37.0); RBC 3.56 Mil/uL (3.80-5.20); RED CELL DISTRIBUTION WIDTH 20.8 % (11.5-14.5); WHITE BLOOD COUNT 5.3 K/uL (4.8-10.8)
[2018-12-05 06:53] LABS: ALB/GLOB RATIO 0.9 (1.0-2.1); ALBUMIN 2.9 g/dL (3.5-5.0); ALT/SGPT 35 U/L (9-52); AST/SGOT 38 U/L (14-36); BLOOD UREA NITROGEN 21 mg/dl (7-17); CALCIUM 8.8 mg/dL (8.4-10.2); GFR NON-AFRICAN AMERICAN 60
--- NOTE | 2018-12-05 07:45 | PN ---
DATE: 12/05/2018 SUBJECTIVE: The patient seen and examined. Interim events noted. Consults noted and appreciated. Pulmonary, Infectious Disease, digital art director intervention noted and appreciated. The patient remains in intensive care unit, was extubated, tolerating extubation very well. The patient is awake, responsive. Denies any specific complaint. No chest pain. No shortness of breath. PHYSICAL EXAMINATION: GENERAL: The patient is in no acute distress. VITAL SIGNS: Stable. HEART: S1 and S2, normal and regular. LUNGS: Good bilateral air exchange. ABDOMEN: Soft, nontender. EXTREMITIES: No calf swelling. No tenderness. No acute ischemia. TRAIN DIRECTOR: Exam is essentially unchanged. DIAGNOSTIC DATA: Available diagnostic data reviewed. Telemetry monitoring does not show significant arrhythmias. ASSESSMENT AND PLAN: Overall, the patient is clinically stable, improved remarkably, tolerated extubation very well. Plan as ordered. Case and plan discussed with the patient. Nakul Zhang MD
[2018-12-05] MEDS: Insulin Regular 100 units/ml SC SCH ×4 (08:41→23:30)
[2018-12-05] MEDS: Enoxaparin 40 mg Syringe SC SCH (08:43)
[2018-12-05] MEDS: Potassium Chloride 20 mEq/15 ml LIQ UD NG SCH (08:48)
--- NOTE | 2018-12-05 10:25 | CP.PCM.PN ---
Subjective - Date & Time of Evaluation Date of Evaluation: 12/05/18 Time of Evaluation: 10:26 - Subjective Subjective: awake and alert sob improved 02 sat 100% Objective - Vital Signs/Intake and Output Vital Signs (last 24 hours): Temp Pulse Resp BP Pulse Ox 97.7 F 78 20 139/66 99 12/05/18 08:00 12/05/18 10:00 12/05/18 10:00 12/05/18 10:00 12/05/18 10:00 Intake and Output: 12/05/18 12/05/18 06:59 18:59 Intake Total 450 640 Output Total 350 Balance 100 640 - Medications Medications: Current Medications Acetaminophen (Tylenol 650mg/20.3ml Solution Ud) 650 mg GT Q6 PRN PRN Reason: temp of > 100.4 F Last Admin: 11/24/18 17:57 Dose: 650 mg Acetaminophen (Tylenol 650mg/20.3ml Solution Ud) 650 mg NG Q4 PRN PRN Reason: fever 100.4 or above Last Admin: 12/03/18 10:36 Dose: 650 mg Albuterol/Ipratropium (Duoneb 3 Mg/0.5 Mg (3 Ml) Ud) 3 ml INH RQ4 [facility] Last Admin: 12/05/18 07:28 Dose: 3 ml Enoxaparin Sodium (Lovenox) 40 mg SC DAILY [facility]; Protocol Last Admin: 12/05/18 08:43 Dose: 40 mg Furosemide (Lasix) 60 mg IV DAILY [facility] Last Admin: 12/05/18 08:46 Dose: 60 mg Vancomycin HCl 1 gm/ Sodium (Chloride) 250 mls @ 166.667 mls/hr IVPB Q12 [facility]; Protocol Last Admin: 12/05/18 08:47 Dose: 166.667 mls/hr Piperacillin Sod/Tazobactam (Sod 3.375 gm/ Sodium Chloride) 100 mls @ 100 mls/hr IVPB Q6 [facility]; Protocol Last Admin: 12/05/18 09:38 Dose: 100 mls/hr Insulin Detemir (Levemir) 10 units SC HS [facility] Last Admin: 12/04/18 21:29 Dose: 10 u Insulin Human Regular (Humulin R) 0 units SC ACCU-CHECK [facility]; Protocol Last Admin: 12/05/18 08:41 Dose: Not Given Lorazepam (Ativan) 1 mg IVP Q4 PRN PRN Reason: Agitation Last Admin: 12/01/18 15:30 Dose: 1 mg Losartan Potassium (Cozaar) 25 mg PO DAILY [facility] Last Admin: 12/05/18 08:45 Dose: 25 mg Pantoprazole Sodium (Protonix Inj) 40 mg IVP DAILY [facility] Last Admin: 12/05/18 08:44 Dose: 40 mg Potassium Chloride (Potassium Chloride Oral Soln) 40 meq NG DAILY [facility] Last Admin: 12/05/18 08:48 Dose: 40 meq Spironolactone (Aldactone) 12.5 mg PO DAILY [facility] - Labs Labs: 12/05/18 05:42 12/05/18 05:42 - Constitutional Appears: No Acute Distress - Head Exam Head Exam: ATRAUMATIC, NORMAL INSPECTION, NORMOCEPHALIC - Eye Exam Eye Exam: EOMI, Normal appearance, PERRL Pupil Exam: NORMAL ACCOMODATION, PERRL - ENT Exam ENT Exam: Mucous Membranes Moist, Normal Exam - Neck Exam Neck Exam: Full ROM, Normal Inspection. absent: Lymphadenopathy - Respiratory Exam Respiratory Exam: Clear to Ausculation Bilateral, Prolonged Expiratory Phase, NORMAL BREATHING PATTERN - Cardiovascular Exam Cardiovascular Exam: REGULAR RHYTHM, +S1, +S2. absent: Murmur - GI/Abdominal Exam GI & Abdominal Exam: Soft, Normal Bowel Sounds. absent: Tenderness - Rectal Exam Rectal Exam: NORMAL INSPECTION - Extremities Exam Extremities Exam: Full ROM, Normal Capillary Refill, Normal Inspection. absent: Joint Swelling, Pedal Edema - Back Exam Back Exam: NORMAL INSPECTION - Neurological Exam Neurological Exam: Alert, Awake, CN II-XII Intact - Psychiatric Exam Psychiatric exam: Normal Affect, Normal Mood - Skin Skin Exam: Dry, Intact, Normal Color, Warm Assessment and Plan - Assessment and Plan (Free Text) Assessment: respiratory failure improved chf-clinically improving Plan: continue current rx repeat cxr in am
--- NOTE | 2018-12-05 10:33 | CP.CCUPN ---
CCU Subjective - Physician Review Events Since Last Encounter (Free Text): 12/05/18 10:26 was extubated on 12/03, initially was on BiPAP but has been on NC since yesterday. Looks comfortable and stable , BP stable afebrile CCU Objective - Vital Signs / Intake & Output Vital Signs (Last 4 hours): Vital Signs Temp Pulse Resp BP Pulse Ox 12/05/18 10:00 78 20 139/66 99 12/05/18 08:46 157/72 H 12/05/18 08:45 79 150/72 12/05/18 08:00 97.7 F 80 14 150/72 98 Intake and Output (Last 8hrs): Intake & Output 12/04/18 12/05/18 12/05/18 22:59 06:59 14:59 Intake Total 1050 100 640 Output Total 250 350 Balance 800 -250 640 Weight 212 lb 3.2 oz Intake: IV 350 100 Intake, Piggyback 100 350 Oral 600 290 Output: Urine 250 350 Urethral (Arias) 250 350 Other: # Bowel Movements 1 - Physical Exam Narrative Physical Exam (Free Text): 12/05/18 10:27 P/E Neck: No JVD Lungs: no ronchi, crackles Abdomen: soft, non-tender Ext' +1 edema Heart: No gallop Head: Positive for: Atraumatic, Normocephalic Pupils: Positive for: PERRL Conjunctiva: Positive for: Normal Mouth: Positive for: Moist Mucous Membranes Nose (External): Positive for: Atraumatic Neck: Positive for: Normal Range of Motion Respiratory/Chest: Positive for: Rhonchi Cardiovascular: Positive for: Regular Rate and Rhythm Abdomen: Positive for: Normal Bowel Sounds Upper Extremity: Positive for: Normal Inspection Lower Extremity: Positive for: Normal Inspection Neurological: Positive for: Other (on ventilator, sedated) - Medications Active Medications: Active Medications Generic Name Dose Route Start Last Admin Trade Name Freq PRN Reason Stop Dose Admin Acetaminophen 650 mg 11/23/18 01:23 11/24/18 17:57 Tylenol 650mg/20.3ml Solution Ud GT 650 mg Q6 PRN Administration temp of > 100.4 F Acetaminophen 650 mg 11/24/18 17:44 12/03/18 10:36 Tylenol 650mg/20.3ml Solution Ud NG 650 mg Q4 PRN Administration fever 100.4 or above Albuterol/Ipratropium 3 ml 11/25/18 16:00 12/05/18 07:28 Duoneb 3 Mg/0.5 Mg (3 Ml) Ud INH 3 ml RQ4 [facility] Administration Enoxaparin Sodium 40 mg 11/23/18 09:00 12/05/18 08:43 Lovenox SC 40 mg DAILY [facility] Administration Protocol Furosemide 60 mg 12/02/18 09:00 12/05/18 08:46 Lasix IV 60 mg DAILY [facility] Administration Vancomycin HCl 1 gm/ Sodium 250 mls @ 166.667 mls/hr 11/23/18 09:00 12/05/18 08:47 Chloride IVPB 166.667 mls/hr Q12 [facility] Administration Protocol Piperacillin Sod/Tazobactam 100 mls @ 100 mls/hr 11/23/18 10:00 12/05/18 09:38 Sod 3.375 gm/ Sodium Chloride IVPB 100 mls/hr Q6 [facility] Administration Protocol Insulin Detemir 10 units 11/22/18 22:00 12/04/18 21:29 Levemir SC 10 u HS [facility] Administration Insulin Human Regular 0 units 11/23/18 12:00 12/05/18 08:41 Humulin R SC Not Given ACCU-CHECK [facility] Protocol Lorazepam 1 mg 12/01/18 15:11 12/01/18 15:30 Ativan IVP 1 mg Q4 PRN Administration Agitation Losartan Potassium 25 mg 11/23/18 09:00 12/05/18 08:45 Cozaar PO 25 mg DAILY [facility] Administration Pantoprazole Sodium 40 mg 12/01/18 14:00 12/05/18 08:44 Protonix Inj IVP 40 mg DAILY [facility] Administration Potassium Chloride 40 meq 12/03/18 09:00 12/05/18 08:48 Potassium Chloride Oral Soln NG 40 meq DAILY [facility] Administration Spironolactone 12.5 mg 11/23/18 09:00 Aldactone PO DAILY [facility] - Patient Studies Lab Studies: Lab Studies 12/05/18 12/05/18 12/05/18 Range/Units 06:33 05:42 05:42 WBC 5.3 (4.8-10.8) K/uL RBC 3.56 L (3.80-5.20) Mil/uL Hgb 9.7 L (12.0-16.0) g/dL Hct 30.7 L (34.0-47.0) % MCV 86.4 (81.0-99.0) fl MCH 27.1 (27.0-31.0) pg MCHC 31.4 L (33.0-37.0) g/dL RDW 20.8 H (11.5-14.5) % Plt Count 237 (130-400) K/uL pCO2 (35-45) mm/Hg pO2 (80-100) mm/Hg HCO3 (21-28) mmol/L ABG pH (7.35-7.45) ABG Total CO2 (22-28) mmol/L ABG O2 Saturation (95-98) % ABG Base Excess (-2.0-3.0) mmol/L Favian Test ABG Potassium (3.6-5.2) mmol/L A-a O2 Difference mm/Hg Sodium 145 (132-148) mmol/L Chloride 103 (98-107) mmol/L Glucose (65-105) mg/dL Lactate (0.7-2.1) mmol/L Vent Mode FiO2 % Potassium 3.2 L (3.6-5.0) MMOL/L Carbon Dioxide 35 H (22-30) mmol/L Anion Gap 10 (10-20) BUN 21 H (7-17) mg/dl Creatinine 0.9 (0.7-1.2) mg/dl Est GFR ( Amer) > 60 Est GFR (Non-Af Amer) 60 POC Glucose (mg/dL) 140 H (65-110) mg/dL Random Glucose 139 H (65-105) mg/dL Calcium 8.8 (8.4-10.2) mg/dL Phosphorus 3.7 (2.5-4.5) mg/dl Magnesium 2.0 (1.6-2.3) MG/DL Total Bilirubin 0.4 (0.2-1.3) mg/dl AST 38 H (14-36) U/L ALT 35 (9-52) U/L Alkaline Phosphatase 55 (38-126) U/L Total Protein 6.0 L (6.3-8.2) G/DL Albumin 2.9 L (3.5-5.0) g/dL Globulin 3.1 (2.2-3.9) gm/dL Albumin/Globulin Ratio 0.9 L (1.0-2.1) Arterial Blood Potassium (3.6-5.2) mmol/L 12/04/18 12/04/18 12/04/18 Range/Units 21:23 16:52 11:39 WBC (4.8-10.8) K/uL RBC (3.80-5.20) Mil/uL Hgb (12.0-16.0) g/dL Hct (34.0-47.0) % MCV (81.0-99.0) fl MCH (27.0-31.0) pg MCHC (33.0-37.0) g/dL RDW (11.5-14.5) % Plt Count (130-400) K/uL pCO2 (35-45) mm/Hg pO2 (80-100) mm/Hg HCO3 (21-28) mmol/L ABG pH (7.35-7.45) ABG Total CO2 (22-28) mmol/L ABG O2 Saturation (95-98) % ABG Base Excess (-2.0-3.0) mmol/L Favian Test ABG Potassium (3.6-5.2) mmol/L A-a O2 Difference mm/Hg Sodium (132-148) mmol/L Chloride (98-107) mmol/L Glucose (65-105) mg/dL Lactate (0.7-2.1) mmol/L Vent Mode FiO2 % Potassium (3.6-5.0) MMOL/L Carbon Dioxide (22-30) mmol/L Anion Gap (10-20) BUN (7-17) mg/dl Creatinine (0.7-1.2) mg/dl Est GFR ( Amer) Est GFR (Non-Af Amer) POC Glucose (mg/dL) 119 H 94 113 H (65-110) mg/dL Random Glucose (65-105) mg/dL Calcium (8.4-10.2) mg/dL Phosphorus (2.5-4.5) mg/dl Magnesium (1.6-2.3) MG/DL Total Bilirubin (0.2-1.3) mg/dl AST (14-36) U/L ALT (9-52) U/L Alkaline Phosphatase (38-126) U/L Total Protein (6.3-8.2) G/DL Albumin (3.5-5.0) g/dL Globulin (2.2-3.9) gm/dL Albumin/Globulin Ratio (1.0-2.1) Arterial Blood Potassium (3.6-5.2) mmol/L 12/04/18 Range/Units 10:02 WBC (4.8-10.8) K/uL RBC (3.80-5.20) Mil/uL Hgb (12.0-16.0) g/dL Hct (34.0-47.0) % MCV (81.0-99.0) fl MCH (27.0-31.0) pg MCHC (33.0-37.0) g/dL RDW (11.5-14.5) % Plt Count (130-400) K/uL pCO2 57 H (35-45) mm/Hg pO2 56 L (80-100) mm/Hg HCO3 35.5 H (21-28) mmol/L ABG pH 7.45 (7.35-7.45) ABG Total CO2 41.3 H (22-28) mmol/L ABG O2 Saturation 93.6 L (95-98) % ABG Base Excess 13.7 H (-2.0-3.0) mmol/L Favian Test Yes ABG Potassium 3.3 L (3.6-5.2) mmol/L A-a O2 Difference 101.0 mm/Hg Sodium 145.0 (132-148) mmol/L Chloride 108.0 H (98-107) mmol/L Glucose 116 H (65-105) mg/dL Lactate 0.8 (0.7-2.1) mmol/L Vent Mode Nc FiO2 32.0 % Potassium (3.6-5.0) MMOL/L Carbon Dioxide (22-30) mmol/L Anion Gap (10-20) BUN (7-17) mg/dl Creatinine (0.7-1.2) mg/dl Est GFR ( Amer) Est GFR (Non-Af Amer) POC Glucose (mg/dL) (65-110) mg/dL Random Glucose (65-105) mg/dL Calcium (8.4-10.2) mg/dL Phosphorus (2.5-4.5) mg/dl Magnesium (1.6-2.3) MG/DL Total Bilirubin (0.2-1.3) mg/dl AST (14-36) U/L ALT (9-52) U/L Alkaline Phosphatase (38-126) U/L Total Protein (6.3-8.2) G/DL Albumin (3.5-5.0) g/dL Globulin (2.2-3.9) gm/dL Albumin/Globulin Ratio (1.0-2.1) Arterial Blood Potassium 3.3 L (3.6-5.2) mmol/L Laboratory Results - last 24 hr 12/04/18 12/04/18 12/04/18 10:02 11:39 16:52 WBC RBC Hgb Hct MCV MCH MCHC RDW Plt Count pCO2 57 H pO2 56 L HCO3 35.5 H ABG pH 7.45 ABG Total CO2 41.3 H ABG O2 Saturation 93.6 L ABG Base Excess 13.7 H Favian Test Yes ABG Potassium 3.3 L A-a O2 Difference 101.0 Sodium 145.0 Chloride 108.0 H Glucose 116 H Lactate 0.8 Vent Mode Nc FiO2 32.0 Potassium Carbon Dioxide Anion Gap BUN Creatinine Est GFR ( Amer) Est GFR (Non-Af Amer) POC Glucose (mg/dL) 113 H 94 Random Glucose Calcium Phosphorus Magnesium Total Bilirubin AST ALT Alkaline Phosphatase Total Protein Albumin Globulin Albumin/Globulin Ratio Arterial Blood Potassium 3.3 L 12/04/18 12/05/18 12/05/18 21:23 05:42 05:42 WBC 5.3 RBC 3.56 L Hgb 9.7 L Hct 30.7 L MCV 86.4 MCH 27.1 MCHC 31.4 L RDW 20.8 H Plt Count 237 pCO2 pO2 HCO3 ABG pH ABG Total CO2 ABG O2 Saturation ABG Base Excess Favian Test ABG Potassium A-a O2 Difference Sodium 145 Chloride 103 Glucose Lactate Vent Mode FiO2 Potassium 3.2 L Carbon Dioxide 35 H Anion Gap 10 BUN 21 H Creatinine 0.9 Est GFR ( Amer) > 60 Est GFR (Non-Af Amer) 60 POC Glucose (mg/dL) 119 H Random Glucose 139 H Calcium 8.8 Phosphorus 3.7 Magnesium 2.0 Total Bilirubin 0.4 AST 38 H ALT 35 Alkaline Phosphatase 55 Total Protein 6.0 L Albumin 2.9 L Globulin 3.1 Albumin/Globulin Ratio 0.9 L Arterial Blood Potassium 12/05/18 06:33 WBC RBC Hgb Hct MCV MCH MCHC RDW Plt Count pCO2 pO2 HCO3 ABG pH ABG Total CO2 ABG O2 Saturation ABG Base Excess Favian Test ABG Potassium A-a O2 Difference Sodium Chloride Glucose Lactate Vent Mode FiO2 Potassium Carbon Dioxide Anion Gap BUN Creatinine Est GFR ( Amer) Est GFR (Non-Af Amer) POC Glucose (mg/dL) 140 H Random Glucose Calcium Phosphorus Magnesium Total Bilirubin AST ALT Alkaline Phosphatase Total Protein Albumin Globulin Albumin/Globulin Ratio Arterial Blood Potassium Fingerstick Blood Sugar Results: 140 Critical Care Progress Note - Nutrition Nutrition: Nutrition Category Date Time Status Dysphagia/Modified Consistency Diet [DIET] Diets 12/04/18 Dinner Active Assessment/Plan - Assessment and Plan (Free Text) Assessment: IMPRESSION / MAJOR PROBLEMS NOW: 1. Acute Hypercapneic Resp Failure, 2 bilat Pneumonia / COPD Exacerbation: extubated, 12/03, improving 2. Metabolic Encephalopathy with AMS 2 #1 : improving 3. h/o CHF with DDysfx 4. h/o DM II PLAN: 1. Continue Nasal cannula oxygen support ,will monitor and will transfer to floor , if OK with Dr Grazyna Prince 2. on Lasix 60 mg IV daily, continue 3- K-cl 40 meq po daily now and daily.
[2018-12-05] MEDS ORDERED: Potassium Chloride 20 mEq ER Tab PO ONE (10:40)
[2018-12-05] MEDS: Insulin Detemir 100 Units/ml Inj SC SCH (21:44)
[2018-12-06] MEDS: Piperacillin/Tazobact 3.375 GM in Sodium Chloride 0.9% 100 ML IVPB SCH ×4 (04:30→21:07)
[2018-12-06] MEDS: Albuterol-Ipratrop 3 mg / 0.5 (3 ml) UD INH SCH ×5 (05:11→19:12)
[2018-12-06 05:19] LABS: HEMOGLOBIN 9.4 g/dL (12.0-16.0); MEAN CELL VOLUME 86.3 fl (81.0-99.0); MEAN CORPUSCULAR HEMOGLOBIN 27.2 pg (27.0-31.0); MEAN CORPUSCULAR HGB CONC 31.5 g/dL (33.0-37.0); RBC 3.47 Mil/uL (3.80-5.20); RED CELL DISTRIBUTION WIDTH 20.9 % (11.5-14.5); WHITE BLOOD COUNT 4.1 K/uL (4.8-10.8)
[2018-12-06 05:49] LABS: ALB/GLOB RATIO 0.9 (1.0-2.1); ALBUMIN 2.9 g/dL (3.5-5.0); ALT/SGPT 24 U/L (9-52); AST/SGOT 31 U/L (14-36); BLOOD UREA NITROGEN 17 mg/dl (7-17); CALCIUM 8.9 mg/dL (8.4-10.2); GFR NON-AFRICAN AMERICAN > 60
[2018-12-06] MEDS: Insulin Regular 100 units/ml SC SCH ×4 (06:06→22:50)
[2018-12-06] MEDS: Enoxaparin 40 mg Syringe SC SCH (08:33)
[2018-12-06] MEDS: Potassium Chloride 20 mEq/15 ml LIQ UD PO SCH ×2 (08:35→17:48)
--- NOTE | 2018-12-06 08:52 | PN ---
DATE: 12/06/2018 SUBJECTIVE: The patient seen and examined. Interim events noted. Consults noted and appreciated. The patient remains in intensive care unit. The patient is awake, arousable, conversant, but not able to provide any informative history or review of systems. PHYSICAL EXAMINATION: GENERAL: The patient feels okay. Denies any specific complaints, in no acute distress. VITAL SIGNS: Stable. HEART: S1 and S2, normal and regular. LUNGS: Good bilateral air exchange. ABDOMEN: Soft and nontender. EXTREMITIES: No calf swelling. No tenderness. No acute ischemia. CENTRAL NERVOUS SYSTEM: Essentially unchanged. DIAGNOSTIC DATA: Available diagnostic data reviewed. Telemetry monitoring does not reveal significant arrhythmias. The chest x-ray AP film, but may have some congestion. ASSESSMENT AND PLAN: Overall, the patient is clinically improving, tolerating extubation well. Plan as ordered. Nakul Zhang MD
--- NOTE | 2018-12-06 10:25 | CP.CCUPN ---
CCU Subjective - Physician Review Events Since Last Encounter (Free Text): 12/06/18 10:22 alert and oriented, good urine output on lasix, K has been low being repleted. PO and IV. CXR also showing improved pulm congestion. CCU Objective - Vital Signs / Intake & Output Vital Signs (Last 4 hours): Vital Signs Temp Pulse Resp BP Pulse Ox 12/06/18 09:06 157/73 H 12/06/18 08:50 98.4 F 12/06/18 08:31 83 148/65 12/06/18 08:00 79 12 148/65 100 Intake and Output (Last 8hrs): Intake & Output 12/05/18 12/06/18 12/06/18 22:59 06:59 14:59 Intake Total 742 114 670 Output Total 150 300 Balance 592 -186 670 Weight 212 lb 3.2 oz Intake: IV 2 14 Intake, Piggyback 450 100 350 Oral 290 320 Output: Urine 150 300 Urethral (Arias) 150 300 Other: # Bowel Movements 1 - Physical Exam Narrative Physical Exam (Free Text): 12/06/18 10:28 P/E shelby: No JVD Lungs: rt basal crackles abdomen; soft, non-tender Ext: +1 edema Heart: no gallop Head: Positive for: Atraumatic, Normocephalic Pupils: Positive for: PERRL Conjunctiva: Positive for: Normal Mouth: Positive for: Moist Mucous Membranes Nose (External): Positive for: Atraumatic Neck: Positive for: Normal Range of Motion Respiratory/Chest: Positive for: Rhonchi Cardiovascular: Positive for: Regular Rate and Rhythm Abdomen: Positive for: Normal Bowel Sounds Upper Extremity: Positive for: Normal Inspection Lower Extremity: Positive for: Normal Inspection Neurological: Positive for: Other (on ventilator, sedated) - Medications Active Medications: Active Medications Generic Name Dose Route Start Last Admin Trade Name Freq PRN Reason Stop Dose Admin Acetaminophen 650 mg 11/23/18 01:23 11/24/18 17:57 Tylenol 650mg/20.3ml Solution Ud GT 650 mg Q6 PRN Administration temp of > 100.4 F Acetaminophen 650 mg 11/24/18 17:44 12/03/18 10:36 Tylenol 650mg/20.3ml Solution Ud NG 650 mg Q4 PRN Administration fever 100.4 or above Albuterol/Ipratropium 3 ml 11/25/18 16:00 12/06/18 07:37 Duoneb 3 Mg/0.5 Mg (3 Ml) Ud INH 3 ml RQ4 JEANA Administration Furosemide 60 mg 12/02/18 09:00 12/06/18 09:06 Lasix IV 60 mg DAILY JEANA Administration Vancomycin HCl 1 gm/ Sodium 250 mls @ 166.667 mls/hr 11/23/18 09:00 12/06/18 08:36 Chloride IVPB 166.667 mls/hr Q12 JEANA Administration Protocol Piperacillin Sod/Tazobactam 100 mls @ 100 mls/hr 11/23/18 10:00 12/06/18 09:07 Sod 3.375 gm/ Sodium Chloride IVPB 100 mls/hr Q6 JEANA Administration Protocol Potassium Chloride 100 mls @ 50 mls/hr 12/06/18 10:21 Potassium Chloride 20 Meq/100 Ml IVPB 12/06/18 12:20 ONCE ONE Insulin Detemir 10 units 11/22/18 22:00 12/05/18 21:44 Levemir SC 10 u HS JEANA Administration Insulin Human Regular 0 units 11/23/18 12:00 12/06/18 06:06 Humulin R SC Not Given ACCU-CHECK [facility] Protocol Losartan Potassium 25 mg 11/23/18 09:00 12/06/18 08:31 Cozaar PO 25 mg DAILY JEANA Administration Pantoprazole Sodium 40 mg 12/01/18 14:00 12/06/18 08:35 Protonix Inj IVP 40 mg DAILY JEANA Administration Potassium Chloride 40 meq 12/06/18 09:00 12/06/18 08:35 Potassium Chloride Oral Soln PO 40 meq BID JEANA Administration Spironolactone 12.5 mg 11/23/18 09:00 Aldactone PO DAILY JENAA - Patient Studies Lab Studies: Lab Studies 12/06/18 12/06/18 12/06/18 Range/Units 06:04 04:35 04:35 WBC 4.1 L (4.8-10.8) K/uL RBC 3.47 L (3.80-5.20) Mil/uL Hgb 9.4 L (12.0-16.0) g/dL Hct 30.0 L (34.0-47.0) % MCV 86.3 (81.0-99.0) fl MCH 27.2 (27.0-31.0) pg MCHC 31.5 L (33.0-37.0) g/dL RDW 20.9 H (11.5-14.5) % Plt Count 229 (130-400) K/uL Sodium 144 (132-148) mmol/l Potassium 3.1 L (3.6-5.0) MMOL/L Chloride 105 (98-107) mmol/L Carbon Dioxide 35 H (22-30) mmol/L Anion Gap 7 L (10-20) BUN 17 (7-17) mg/dl Creatinine 0.8 (0.7-1.2) mg/dl Est GFR ( Amer) > 60 Est GFR (Non-Af Amer) > 60 POC Glucose (mg/dL) 133 H (65-110) mg/dL Random Glucose 123 H (65-105) mg/dL Calcium 8.9 (8.4-10.2) mg/dL Phosphorus 4.0 (2.5-4.5) mg/dl Magnesium 1.9 (1.6-2.3) MG/DL Total Bilirubin 0.2 (0.2-1.3) mg/dl AST 31 (14-36) U/L ALT 24 (9-52) U/L Alkaline Phosphatase 50 (38-126) U/L Total Protein 6.0 L (6.3-8.2) G/DL Albumin 2.9 L (3.5-5.0) g/dL Globulin 3.1 (2.2-3.9) gm/dL Albumin/Globulin Ratio 0.9 L (1.0-2.1) 12/05/18 12/05/18 12/05/18 Range/Units 21:11 16:20 11:35 WBC (4.8-10.8) K/uL RBC (3.80-5.20) Mil/uL Hgb (12.0-16.0) g/dL Hct (34.0-47.0) % MCV (81.0-99.0) fl MCH (27.0-31.0) pg MCHC (33.0-37.0) g/dL RDW (11.5-14.5) % Plt Count (130-400) K/uL Sodium (132-148) mmol/l Potassium (3.6-5.0) MMOL/L Chloride (98-107) mmol/L Carbon Dioxide (22-30) mmol/L Anion Gap (10-20) BUN (7-17) mg/dl Creatinine (0.7-1.2) mg/dl Est GFR ( Amer) Est GFR (Non-Af Amer) POC Glucose (mg/dL) 129 H 92 175 H (65-110) mg/dL Random Glucose (65-105) mg/dL Calcium (8.4-10.2) mg/dL Phosphorus (2.5-4.5) mg/dl Magnesium (1.6-2.3) MG/DL Total Bilirubin (0.2-1.3) mg/dl AST (14-36) U/L ALT (9-52) U/L Alkaline Phosphatase (38-126) U/L Total Protein (6.3-8.2) G/DL Albumin (3.5-5.0) g/dL Globulin (2.2-3.9) gm/dL Albumin/Globulin Ratio (1.0-2.1) Laboratory Results - last 24 hr 12/05/18 12/05/18 12/05/18 11:35 16:20 21:11 WBC RBC Hgb Hct MCV MCH MCHC RDW Plt Count Sodium Potassium Chloride Carbon Dioxide Anion Gap BUN Creatinine Est GFR ( Amer) Est GFR (Non-Af Amer) POC Glucose (mg/dL) 175 H 92 129 H Random Glucose Calcium Phosphorus Magnesium Total Bilirubin AST ALT Alkaline Phosphatase Total Protein Albumin Globulin Albumin/Globulin Ratio 12/06/18 12/06/18 12/06/18 04:35 04:35 06:04 WBC 4.1 L RBC 3.47 L Hgb 9.4 L Hct 30.0 L MCV 86.3 MCH 27.2 MCHC 31.5 L RDW 20.9 H Plt Count 229 Sodium 144 Potassium 3.1 L Chloride 105 Carbon Dioxide 35 H Anion Gap 7 L BUN 17 Creatinine 0.8 Est GFR ( Amer) > 60 Est GFR (Non-Af Amer) > 60 POC Glucose (mg/dL) 133 H Random Glucose 123 H Calcium 8.9 Phosphorus 4.0 Magnesium 1.9 Total Bilirubin 0.2 AST 31 ALT 24 Alkaline Phosphatase 50 Total Protein 6.0 L Albumin 2.9 L Globulin 3.1 Albumin/Globulin Ratio 0.9 L Fingerstick Blood Sugar Results: 133 Critical Care Progress Note - Nutrition Nutrition: Nutrition Category Date Time Status Dysphagia/Modified Consistency Diet [DIET] Diets 12/04/18 Dinner Active Assessment/Plan - Assessment and Plan (Free Text) Assessment: IMPRESSION / MAJOR PROBLEMS NOW: 1. Acute Hypercapneic Resp Failure, 2 bilat Pneumonia / COPD Exacerbation: extubated, 12/03, improving 2. Metabolic Encephalopathy with AMS 2 #1 : improving 3. h/o CHF with DDysfx : pul congestion improving on lasix 4. h/o DM II 5- Hypokalemia : due to diuretics PLAN: 1. Continue Nasal cannula oxygen support ,will monitor and will transfer to floor , if OK with Dr Grazyna Prince 2. on Lasix 60 mg IV daily, continue 3- K-cl 40 meq po daily , also gave 20 meq IV
[2018-12-06] MEDS ORDERED: Potassium Chloride 20 mEq 100 ML IVPB ONE (10:45)
--- NOTE | 2018-12-06 14:34 | CP.PCM.PN ---
Subjective - Date & Time of Evaluation Date of Evaluation: 12/06/18 Time of Evaluation: 08:00 - Subjective Subjective: awake alert NAD Objective - Vital Signs/Intake and Output Vital Signs (last 24 hours): Temp Pulse Resp BP Pulse Ox 98.3 F 85 15 140/68 100 12/06/18 12:00 12/06/18 14:00 12/06/18 14:00 12/06/18 14:00 12/06/18 14:00 Intake and Output: 12/06/18 12/06/18 06:59 18:59 Intake Total 466 814 Output Total 300 1100 Balance 166 -286 - Medications Medications: Current Medications Acetaminophen (Tylenol 650mg/20.3ml Solution Ud) 650 mg GT Q6 PRN PRN Reason: temp of > 100.4 F Last Admin: 11/24/18 17:57 Dose: 650 mg Acetaminophen (Tylenol 650mg/20.3ml Solution Ud) 650 mg NG Q4 PRN PRN Reason: fever 100.4 or above Last Admin: 12/03/18 10:36 Dose: 650 mg Albuterol/Ipratropium (Duoneb 3 Mg/0.5 Mg (3 Ml) Ud) 3 ml INH RQ4 JEANA Last Admin: 12/06/18 11:26 Dose: 3 ml Furosemide (Lasix) 60 mg IV DAILY [facility] Last Admin: 12/06/18 09:06 Dose: 60 mg Piperacillin Sod/Tazobactam (Sod 3.375 gm/ Sodium Chloride) 100 mls @ 100 mls/hr IVPB Q6 [facility]; Protocol Last Admin: 12/06/18 09:07 Dose: 100 mls/hr Insulin Detemir (Levemir) 10 units SC [facility] Last Admin: 12/05/18 21:44 Dose: 10 u Insulin Human Regular (Humulin R) 0 units SC ACCU-CHECK [facility]; Protocol Last Admin: 12/06/18 12:15 Dose: 2 u Losartan Potassium (Cozaar) 25 mg PO DAILY [facility] Last Admin: 12/06/18 08:31 Dose: 25 mg Pantoprazole Sodium (Protonix Inj) 40 mg IVP DAILY [facility] Last Admin: 12/06/18 08:35 Dose: 40 mg Potassium Chloride (Potassium Chloride Oral Soln) 40 meq PO BID [facility] Last Admin: 12/06/18 08:35 Dose: 40 meq Spironolactone (Aldactone) 12.5 mg PO DAILY JEANA - Labs Labs: 12/06/18 04:35 12/06/18 04:35 - Constitutional Appears: Non-toxic, Confused, Chronically Ill - Head Exam Head Exam: ATRAUMATIC, NORMOCEPHALIC - ENT Exam ENT Exam: Mucous Membranes Dry - Neck Exam Neck Exam: absent: Lymphadenopathy - Respiratory Exam Respiratory Exam: Decreased Breath Sounds, Prolonged Expiratory Phase, Rhonchi - Cardiovascular Exam Cardiovascular Exam: REGULAR RHYTHM, +S1, +S2 - GI/Abdominal Exam GI & Abdominal Exam: Distended, Soft. absent: Tenderness - Rectal Exam Rectal Exam: Deferred - Exam Exam: NORMAL INSPECTION - Extremities Exam Extremities Exam: Pedal Edema - Back Exam Back Exam: absent: CVA tenderness (L), CVA tenderness (R) Assessment and Plan (1) Acute respiratory failure with hypoxia and hypercarbia Status: Acute (2) Bacteremia Status: Acute (3) Diabetes mellitus type 2 in obese Status: Acute (4) Pleural effusion Status: Acute (5) Respiratory failure Status: Acute - Assessment and Plan (Free Text) Assessment: improving slowly IV rx renewed
--- NOTE | 2018-12-06 14:39 | RAD ---
Date of service: 12/06/2018 HISTORY: CHF COMPARISON: Comparison made with prior study 12/03/2018. FINDINGS: In situ right-sided PICC line with tip in the SVC LUNGS: Mild pulmonary venous congestive changes with mild bilateral lower lobe alveolar-type infiltrates and bilateral effusions. PLEURA: No significant pleural effusion identified, no pneumothorax apparent. CARDIOVASCULAR: Mild aortic atherosclerotic calcification present. Cardiomegaly. No change multi lead pacemaker/defibrillator OSSEOUS STRUCTURES: No significant abnormalities. VISUALIZED UPPER ABDOMEN: Normal. OTHER FINDINGS: None. IMPRESSION: Mild pulmonary venous congestive changes with mild bilateral lower lobe alveolar-type infiltrates and bilateral effusions.
[2018-12-06] MEDS: Insulin Detemir 100 Units/ml Inj SC SCH (21:16)
[2018-12-06] MEDS ORDERED: Morphine 4 MG/ML VIAL IVP ONE (22:47)
[2018-12-07] MEDS: Albuterol-Ipratrop 3 mg / 0.5 (3 ml) UD INH SCH ×6 (00:19→19:10)
[2018-12-07] MEDS: Piperacillin/Tazobact 3.375 GM in Sodium Chloride 0.9% 100 ML IVPB SCH ×4 (04:30→21:29)
[2018-12-07 05:38] LABS: MEAN CELL VOLUME 85.7 fl (81.0-99.0); MEAN CORPUSCULAR HEMOGLOBIN 27.1 pg (27.0-31.0); MEAN CORPUSCULAR HGB CONC 31.6 g/dL (33.0-37.0); RBC 3.7 Mil/uL (3.80-5.20); RED CELL DISTRIBUTION WIDTH 20.7 % (11.5-14.5); WHITE BLOOD COUNT 4.9 K/uL (4.8-10.8)
[2018-12-07 05:52] LABS: ALBUMIN 3.1 g/dL (3.5-5.0); ALT/SGPT 27 U/L (9-52); AST/SGOT 39 U/L (14-36); BLOOD UREA NITROGEN 15 mg/dl (7-17); CALCIUM 9.1 mg/dL (8.4-10.2); GFR NON-AFRICAN AMERICAN > 60
[2018-12-07] MEDS: Insulin Regular 100 units/ml SC SCH ×4 (07:22→22:07)
--- NOTE | 2018-12-07 08:24 | PN ---
DATE: 12/07/2018 SUBJECTIVE: The patient seen and examined. Interim events noted. Consults noted and appreciated. The patient remains in intensive care unit, on nasal cannula currently, tolerating very well without any acute respiratory distress. No specific issue reported by nursing staff. The patient denies any specific complaint. The patient slept good. Eating okay. PHYSICAL EXAMINATION: GENERAL: The patient is in intensive care unit, in no acute distress. VITAL SIGNS: Stable. HEART: S1 and S2, normal and regular. LUNGS: Good bilateral air exchange. ABDOMEN: Soft, nontender. EXTREMITIES: No edema, no calf swelling, no tenderness, no acute ischemia. CENTRAL NERVOUS SYSTEM: Essentially unchanged. DIAGNOSTIC DATA: Available diagnostic data reviewed. Telemetry monitoring does not show significant arrhythmias. ASSESSMENT: Overall, the patient's general medical condition is stable. PLAN: As ordered. Nakul Zhang MD
[2018-12-07] MEDS: Potassium Chloride 20 mEq/15 ml LIQ UD PO SCH ×2 (08:37→16:59)
[2018-12-07 08:41] LABS: ABG ALLEN TEST YES; ARTERIAL BLOOD GAS HCO3 37.5 mmol/L (21-28); ARTERIAL BLOOD GAS HEMOGLOBIN 10.4 g/dL (11.7-17.4); ARTERIAL BLOOD GAS O2 CAPACITY 14.2 mL/dL (16-24); ARTERIAL BLOOD GAS O2 CONTENT 13.8 ML/dL (15-23); ARTERIAL BLOOD GAS O2 SAT 97.3 % (95-98); ARTERIAL BLOOD GAS PCO2 63 mm/Hg (35-45); ARTERIAL BLOOD GAS PH 7.44 (7.35-7.45); ARTERIAL BLOOD GAS PO2 70 mm/Hg (80-100); ARTERIAL BLOOD GAS TCO2 44.7 mmol/L (22-28)
--- NOTE | 2018-12-07 10:56 | CP.PCM.PN ---
<Pierce Yo - Last Filed: 12/07/18 15:54> Subjective - Date & Time of Evaluation Date of Evaluation: 12/07/18 Time of Evaluation: 10:54 - Subjective Subjective: Pierce Yo DO PGY1 - Internal Medicine [employer] - Cardiology Note for Dr. Kim Seen and examined at bedside this morning, overnight it was reported that patient is not tolerating bipap well and continues to remove mask. Objective - Vital Signs/Intake and Output Vital Signs (last 24 hours): Temp Pulse Resp BP Pulse Ox 97.5 F L 84 25 H 131/69 97 12/07/18 08:00 12/07/18 10:00 12/07/18 10:00 12/07/18 10:00 12/07/18 10:00 Intake and Output: 12/07/18 12/07/18 06:59 18:59 Intake Total 210 120 Output Total 300 Balance -90 120 - Medications Medications: Current Medications Acetaminophen (Tylenol 650mg/20.3ml Solution Ud) 650 mg GT Q6 PRN PRN Reason: temp of > 100.4 F Last Admin: 11/24/18 17:57 Dose: 650 mg Acetaminophen (Tylenol 650mg/20.3ml Solution Ud) 650 mg NG Q4 PRN PRN Reason: fever 100.4 or above Last Admin: 12/03/18 10:36 Dose: 650 mg Albuterol/Ipratropium (Duoneb 3 Mg/0.5 Mg (3 Ml) Ud) 3 ml INH RQ4 JEANA Last Admin: 12/07/18 08:23 Dose: 3 ml Furosemide (Lasix) 60 mg IV DAILY JEANA Last Admin: 12/07/18 08:36 Dose: 60 mg Piperacillin Sod/Tazobactam (Sod 3.375 gm/ Sodium Chloride) 100 mls @ 100 mls/hr IVPB Q6 [facility]; Protocol Last Admin: 12/07/18 04:30 Dose: 100 mls/hr Insulin Detemir (Levemir) 10 units SC HS [facility] Last Admin: 12/06/18 21:16 Dose: 10 u Insulin Human Regular (Humulin R) 0 units SC ACCU-CHECK [facility]; Protocol Last Admin: 12/07/18 07:22 Dose: Not Given Losartan Potassium (Cozaar) 25 mg PO DAILY [facility] Last Admin: 12/07/18 08:33 Dose: 25 mg Pantoprazole Sodium (Protonix Inj) 40 mg IVP DAILY [facility] Last Admin: 12/07/18 08:38 Dose: 40 mg Potassium Chloride (Potassium Chloride Oral Soln) 40 meq PO BID [facility] Last Admin: 12/07/18 08:37 Dose: 40 meq Spironolactone (Aldactone) 12.5 mg PO DAILY [facility] - Labs Labs: 12/07/18 04:25 12/07/18 04:25 - Constitutional Appears: Non-Toxic, NAD, Does not show overt lethargy on exam - Eye Exam Eye Exam: PERRL. absent: Scleral icterus - ENT Exam Additional comments: Moist mucous membranes - Respiratory Exam Respiratory Exam: Clear to Ausculation Bilateral, NORMAL BREATHING PATTERN - Cardiovascular Exam Cardiovascular Exam: RRR, +S1, +S2. absent: Murmur - GI/Abdominal Exam GI & Abdominal Exam: Soft - Extremities Exam Extremities Exam: Pedal Edema Additional comments: Upper extremity edematous ; Lower extremities warm w/ good cap refill bilaterally - Neurological Exam Additional comments: Alert Awake - Skin Skin Exam: Dry, Normal Color, Warm Assessment and Plan (1) Acute respiratory failure with hypoxia and hypercarbia Status: Acute (2) Diabetes mellitus type 2 in obese Status: Acute (3) Hypertension Status: Acute - Assessment and Plan (Free Text) Plan: Will C/w Cozaar 25 QD, Aldactone 12.5 QD Start Toprol 25 QD Hypercapnic; Hypoxemic Respiratory Failure: Patient continues to exhibit CO2 retention and hypoxemia on ABG w/ evidence of elevated bicarb on CMP; Etiology of respiratory is still remains undetermined - would encourage reorientation and bipap use overnight Further reccs per Dr. Kim to follow <Douglas Kim - Last Filed: 12/08/18 23:29> Objective - Vital Signs/Intake and Output Vital Signs (last 24 hours): Temp Pulse Resp BP Pulse Ox 98.3 F 90 26 H 113/48 L 100 12/08/18 16:00 12/08/18 22:00 12/08/18 22:00 12/08/18 22:00 12/08/18 22:00 Intake and Output: 12/08/18 12/09/18 18:59 06:59 Intake Total 1300 164 Output Total 1250 Balance 50 164 - Medications Medications: Current Medications Acetaminophen (Tylenol 325mg Tab) 650 mg PO Q6 PRN PRN Reason: Pain, Mild (1-3) Acetaminophen (Tylenol 325mg Tab) 650 mg PO Q6 PRN PRN Reason: Fever >100.4 F Acetazolamide (Diamox 250 Mg Tab) 250 mg PO BID [facility] Last Admin: 12/08/18 16:05 Dose: 250 mg Albuterol/Ipratropium (Duoneb 3 Mg/0.5 Mg (3 Ml) Ud) 3 ml INH RQ4 [facility] Last Admin: 12/08/18 19:08 Dose: 3 ml Enoxaparin Sodium (Lovenox) 40 mg SC DAILY [facility]; Protocol Last Admin: 12/08/18 16:05 Dose: 40 mg Furosemide (Lasix) 60 mg IV DAILY [facility] Last Admin: 12/08/18 08:32 Dose: 60 mg Piperacillin Sod/Tazobactam (Sod 3.375 gm/ Sodium Chloride) 100 mls @ 100 mls/hr IVPB Q6 [facility]; Protocol Last Admin: 12/08/18 21:05 Dose: 100 mls/hr Insulin Detemir (Levemir) 10 units SC [facility] Last Admin: 12/08/18 21:03 Dose: 10 u Insulin Human Regular (Humulin R) 0 units SC ACCU-CHECK [facility]; Protocol Last Admin: 12/08/18 16:31 Dose: Not Given Losartan Potassium (Cozaar) 25 mg PO DAILY [facility] Last Admin: 12/08/18 08:31 Dose: 25 mg Metoprolol Succinate (Toprol Xl) 25 mg PO DAILY [facility] Last Admin: 12/08/18 08:33 Dose: 25 mg Potassium Chloride (Potassium Chloride Oral Soln) 40 meq PO BID [facility] Last Admin: 12/08/18 16:06 Dose: 40 meq Risperidone (Risperidone Odt 0.25mg) 0.25 mg PO HS [facility] Last Admin: 12/08/18 21:03 Dose: 0.25 mg Spironolactone (Aldactone) 12.5 mg PO DAILY [facility] - Labs Labs: 12/08/18 04:30 12/08/18 04:30 Attending/Attestation - Attestation I have personally seen and examined this patient.: Yes I have fully participated in the care of the patient.: Yes I have reviewed all pertinent clinical information, including history, physical exam and plan: Yes Notes (Text): 12/08/18 23:28 etiology of recurrent hypercarbic respiratory failure is unknown diifferentials may include pulmonary edema which can be trigerred by ischemic heart disease ( triple vessel CAD or left main ) will consider complete heart catheterization
[2018-12-07] MEDS: Metoprolol Succinate 25 mg XL Tab PO SCH (14:21)
[2018-12-07] MEDS: RISPERIDONE 0.25 MG ODT PO SCH (21:31)
[2018-12-07] MEDS: Insulin Detemir 100 Units/ml Inj SC SCH (22:08)
--- NOTE | 2018-12-07 23:25 | PN ---
DATE: 12/07/2018 CRITICAL CARE PROGRESS NOTE LOCATION: The patient in ICU bed 425. Time spent 35 minutes. The patient is seen, evaluated at the bedside. Past medical, surgical, family, social history reviewed. Events since admission and overnight reviewed. SUBJECTIVE: An 83-year-old morbidly obese female with chronic obstructive pulmonary disease, diastolic dysfunction with recurrent respiratory failure, intubated for hypercapnic respiratory failure, extubated on 12/03/2018, remains on 3 L nasal cannula. PO2 and pCO2 are in the acceptable range. This morning, alert and awake, follows commands appropriate. At times, reported gets agitated, pulling out the mask. PHYSICAL EXAMINATION: VITAL SIGNS: Temperature 97.5, heart rate 84, blood pressure 131/69, respiratory rate 25, saturation 97% oxygen supplement 3 L nasal cannula. Intake 1324, output 1500, negative balance 176. Weight 209 pounds, 6.4 ounce. HEAD, EYES, EARS, NOSE AND THROAT: Pupils are reactive. Conjunctivae pink. Sclerae white. NECK: Short. Reduced oropharyngeal air space. Lips and gum dry. CHEST: Bilateral breath sounds, diminished in intensity. HEART: Rhythm regular. S1 and S2 distant. No audible murmur. ABDOMEN: Obese. Bowel sounds present. Soft. EXTREMITIES: Trace edema. DP palpable. NEUROLOGIC: No cranial nerve deficit. Moves upper and lower extremities. No flapping tremor. CURRENT MEDICATIONS: Tylenol 650 mg every 6 hours p.r.n., DuoNeb 3 mL via nebulizer every 4 hours, Lasix 60 mg IV daily, Levemir 10 units subcu at bedtime, Humulin R on before meals and at bedtime with Accu-Chek, Cozaar 25 mg p.o. daily, Protonix 40 mg IV daily, Zosyn 3.375 g IV every 6 hours, potassium chloride 40 mEq p.o. twice daily, Aldactone 12.5 mg p.o. daily. LABORATORY DATA: WBC 4.9, hemoglobin 10, hematocrit 31.7, platelet count 236. ABG: The pH of 7.44, pCO2 of 63, pO2 of 70, saturation 97.3 on oxygen supplement 30%. SMA-7: Sodium 142, potassium 3.7, chloride 100, CO2 of 41, blood urea nitrogen 15, creatinine 0.8, random glucose 109, calcium 9.1, phosphorus 3.2, and magnesium 1.8. Total bilirubin 0.3, AST 39, ALT 27, alkaline phosphatase 56, total protein 6.3, albumin 3.1. Urinalysis: Rbc's 11, wbc's microscopic 120. Toxicology: Vancomycin trough level 29.6. Immunology: Acetylcholine receptor antibody less than 0.3. Serology, urine Legionella pneumophila negative. Influenza A and B negative. Microbiology: Sputum culture positive for yeast. Blood culture, coagulase-negative Staphylococcus. Chest x-ray on 12/06/2018, mild pulmonary venous congestive changes with bilateral lower lobe alveolar type infiltrate and bilateral pleural effusion. IMPRESSION AND PLAN: 1. Neuro: Hypercapnic hypoxic respiratory failure with associated encephalopathy, possible obstructive sleep apnea, recurrent intubation, status post extubation. Currently on oxygen supplement 3 L. Maintain oxygen level above 60, saturation above 94%. Continue DuoNeb. 2. Pulmonary: Recurrent hypercapnic hypoxic respiratory failure. Continue DuoNeb. We will add acetazolamide 250 mg p.o. every 12 hours. Closely monitor for rising carbon dioxide. 3. Cardiac: History of hypertension with hypertensive cardiovascular disease. 4. Hematology: No leukocytosis. Normal platelet count. Anemia of chronic disease. Hemoglobin is currently stable. 5. Renal: Normal blood urea nitrogen and creatinine. Hypokalemia, on potassium supplement. 6. Infectious Disease: Suspected superimposed pneumonia. We will continue current antibiotic. Keep head of bed 30 degrees up. Once the hypoxia resolves, considering adding medications at bedtime along with bilevel positive airway pressure. Maco Russell MD
[2018-12-08] MEDS: Albuterol-Ipratrop 3 mg / 0.5 (3 ml) UD INH SCH ×7 (00:18→23:56)
[2018-12-08] MEDS: Piperacillin/Tazobact 3.375 GM in Sodium Chloride 0.9% 100 ML IVPB SCH ×4 (05:00→21:05)
[2018-12-08 05:38] LABS: HEMOGLOBIN 10.5 g/dL (12.0-16.0); MEAN CELL VOLUME 85.4 fl (81.0-99.0); MEAN CORPUSCULAR HEMOGLOBIN 27.7 pg (27.0-31.0); MEAN CORPUSCULAR HGB CONC 32.5 g/dL (33.0-37.0); RBC 3.78 Mil/uL (3.80-5.20); WHITE BLOOD COUNT 4.5 K/uL (4.8-10.8)
[2018-12-08 05:49] LABS: ALBUMIN 3.2 g/dL (3.5-5.0); ALT/SGPT 34 U/L (9-52); AST/SGOT 37 U/L (14-36); BLOOD UREA NITROGEN 15 mg/dl (7-17); CALCIUM 9.3 mg/dL (8.4-10.2); GFR NON-AFRICAN AMERICAN > 60
[2018-12-08] MEDS: Insulin Regular 100 units/ml SC SCH ×4 (06:30→23:54)
--- NOTE | 2018-12-08 07:48 | CP.PCM.PN ---
<Elmira Russ - Last Filed: 12/08/18 11:00> Subjective - Date & Time of Evaluation Date of Evaluation: 12/08/18 Time of Evaluation: 07:46 - Subjective Subjective: No acute overnight events. Was on BIPAP initially but was switched to NC when pt took off the mask. Awake and alert. No new c/o at this time. Saturating 97% and remains afebrile. Objective - Vital Signs/Intake and Output Vital Signs (last 24 hours): Temp Pulse Resp BP Pulse Ox 98.1 F 82 20 126/81 98 12/08/18 04:00 12/08/18 06:30 12/08/18 06:00 12/08/18 06:00 12/08/18 06:00 Intake and Output: 12/08/18 12/08/18 06:59 18:59 Intake Total 247 Output Total 300 Balance -53 - Medications Medications: Current Medications Acetaminophen (Tylenol 325mg Tab) 650 mg PO Q6 PRN PRN Reason: Pain, Mild (1-3) Acetaminophen (Tylenol 325mg Tab) 650 mg PO Q6 PRN PRN Reason: Fever >100.4 F Acetazolamide (Diamox 250 Mg Tab) 250 mg PO BID [facility] Last Admin: 12/07/18 16:57 Dose: 250 mg Albuterol/Ipratropium (Duoneb 3 Mg/0.5 Mg (3 Ml) Ud) 3 ml INH RQ4 [facility] Last Admin: 12/08/18 04:11 Dose: 3 ml Furosemide (Lasix) 60 mg IV DAILY [facility] Last Admin: 12/07/18 08:36 Dose: 60 mg Piperacillin Sod/Tazobactam (Sod 3.375 gm/ Sodium Chloride) 100 mls @ 100 mls/hr IVPB Q6 [facility]; Protocol Last Admin: 12/08/18 05:00 Dose: 100 mls/hr Insulin Detemir (Levemir) 10 units SC HS [facility] Last Admin: 12/07/18 22:08 Dose: 10 u Insulin Human Regular (Humulin R) 0 units SC ACCU-CHECK [facility]; Protocol Last Admin: 12/08/18 06:30 Dose: Not Given Losartan Potassium (Cozaar) 25 mg PO DAILY [facility] Last Admin: 12/07/18 08:33 Dose: 25 mg Metoprolol Succinate (Toprol Xl) 25 mg PO DAILY [facility] Last Admin: 12/07/18 14:21 Dose: 25 mg Pantoprazole Sodium (Protonix Inj) 40 mg IVP DAILY [facility] Last Admin: 12/07/18 08:38 Dose: 40 mg Potassium Chloride (Potassium Chloride Oral Soln) 40 meq PO BID [facility] Last Admin: 12/07/18 16:59 Dose: 40 meq Risperidone (Risperidone Odt 0.25mg) 0.25 mg PO HS [facility] Last Admin: 12/07/18 21:31 Dose: 0.25 mg Spironolactone (Aldactone) 12.5 mg PO DAILY [facility] - Labs Labs: 12/08/18 04:30 12/08/18 04:30 - Constitutional Appears: No Acute Distress, Other (on NC) - Head Exam Head Exam: NORMAL INSPECTION - ENT Exam ENT Exam: Mucous Membranes Moist - Respiratory Exam Respiratory Exam: Decreased Breath Sounds (in the lower lobes ), NORMAL BREATHING PATTERN. absent: Wheezes - Cardiovascular Exam Cardiovascular Exam: REGULAR RHYTHM, +S1, +S2 - GI/Abdominal Exam GI & Abdominal Exam: Soft, Normal Bowel Sounds. absent: Tenderness - Neurological Exam Neurological Exam: Alert, Awake Assessment and Plan (1) Bacteremia Status: Acute (2) Sepsis Status: Acute (3) CHF (congestive heart failure) Status: Chronic (4) Respiratory failure Status: Acute (5) Anemia Status: Chronic (6) Pleural effusion Status: Acute - Assessment and Plan (Free Text) Assessment: Assessment/Plan: 83 YO female with PMHx of HTN, CHF (w/ pacemaker), DM, hypothyroidism, admitted due to recurrent hypercapneic respiratory failure. Patient brought to ED on 11/22/18 for LATONIA due to AMS, intubated and admitted to ICU. Successfully extubated on 12/03/18. Recurrent hypercapneic respiratory failure s/p intubation and on MV on 11/22/18, ext 12/03/18 pulmonary on board c/w BIPAPA at night and O2 as needed CXR 12/06; evelyne congestion and b/l effusions Encephalopathy, AMS Likely 2/2 to hypercapnia, respiratory failure improving, close to Baseline C/to monitor Ct Head no acute findings Neurology consult if no improvement is noted CHF, pacemaker, chronic Cardiology on board; med adjustments appreciated Bacteremia, sepsis Blood cx 11/22/18: Gram positive cocci in pairs ID on board BCx 11/24 neg c/w Vancomycin and Zosyn Anemia, Normocytic likely acute on chronic No acute source of GI bleed Pleural effusion improving 2/2 heart failure, fluid status, renal status Diastolic dysfunction on echo 10/27 CXR noted c/w iv Abx, IV lasix 60 daily, KCL 40 meq daily Potassium replacement as needed DVT prophylx: Lovenox SC Cont to work with physical therapy to work on gait and strengthening <Nakul Zhang - Last Filed: 12/10/18 11:51> Objective - Vital Signs/Intake and Output Vital Signs (last 24 hours): Temp Pulse Resp BP Pulse Ox 98.1 F 74 24 113/59 L 100 12/10/18 08:18 12/10/18 11:37 12/10/18 10:00 12/10/18 10:00 12/10/18 10:00 Intake and Output: 12/09/18 12/10/18 23:59 11:59 Intake Total 904 214 Output Total 600 450 Balance 304 -236 - Medications Medications: Current Medications Acetaminophen (Tylenol 325mg Tab) 650 mg PO Q6 PRN PRN Reason: Pain, Mild (1-3) Acetaminophen (Tylenol 325mg Tab) 650 mg PO Q6 PRN PRN Reason: Fever >100.4 F Acetazolamide (Diamox 250 Mg Tab) 250 mg PO BID [facility] Last Admin: 12/10/18 09:13 Dose: Not Given Albuterol/Ipratropium (Duoneb 3 Mg/0.5 Mg (3 Ml) Ud) 3 ml INH RQ4 [facility] Last Admin: 12/10/18 11:36 Dose: 3 ml Bumetanide (Bumex) 1 mg IVP DAILY [facility] Last Admin: 12/10/18 09:10 Dose: 1 mg Enoxaparin Sodium (Lovenox) 40 mg SC DAILY [facility]; Protocol Last Admin: 12/10/18 09:13 Dose: 40 mg Piperacillin Sod/Tazobactam (Sod 3.375 gm/ Sodium Chloride) 100 mls @ 100 mls/hr IVPB Q6 [facility]; Protocol Last Admin: 12/10/18 09:16 Dose: 100 mls/hr Insulin Detemir (Levemir) 10 units SC [facility] Last Admin: 12/09/18 22:08 Dose: 10 u Insulin Human Regular (Humulin R) 0 units SC ACCU-CHECK [facility]; Protocol Last Admin: 12/10/18 06:26 Dose: 2 u Losartan Potassium (Cozaar) 25 mg PO DAILY [facility] Last Admin: 12/10/18 09:11 Dose: Not Given Metoprolol Succinate (Toprol Xl) 25 mg PO DAILY [facility] Last Admin: 12/10/18 09:13 Dose: Not Given Potassium Chloride (Potassium Chloride Oral Soln) 40 meq PO BID [facility] Last Admin: 12/10/18 09:13 Dose: Not Given Risperidone (Risperidone Odt 0.25mg) 0.25 mg PO HS [facility] Last Admin: 12/08/18 21:03 Dose: 0.25 mg Spironolactone (Aldactone) 12.5 mg PO DAILY [facility] Last Admin: 12/10/18 09:11 Dose: Not Given - Labs Labs: 12/10/18 04:35 12/10/18 04:35 PT 13.7 Seconds (9.8-13.1) H 12/10/18 04:35 INR 1.2 12/10/18 04:35 APTT 35.2 Seconds (25.6-37.1) 12/10/18 04:35 Assessment and Plan - Assessment and Plan (Free Text) Assessment: Patient was personally seen and examined by me in rounds with residents. Available labs and diagnostic data reviewed. Case, Patient's condition and management plan discussed with residents in rounds. Agree with resident's progress note. Plan: As ordered.
[2018-12-08] MEDS: Potassium Chloride 20 mEq/15 ml LIQ UD PO SCH ×2 (08:32→16:06)
[2018-12-08] MEDS: Metoprolol Succinate 25 mg XL Tab PO SCH (08:33)
--- NOTE | 2018-12-08 09:22 | CP.PCM.PN ---
Subjective - Date & Time of Evaluation Date of Evaluation: 12/08/18 Time of Evaluation: 09:23 - Subjective Subjective: NO APPARENT DISTRESS COMFORTABLE OFF VENT AWAKE,ALERT AND RESPONDS APPROPRIATELY TO VERBAL COMMANDS Objective - Vital Signs/Intake and Output Vital Signs (last 24 hours): Temp Pulse Resp BP Pulse Ox 98.5 F 84 13 135/69 99 12/08/18 08:00 12/08/18 08:33 12/08/18 08:00 12/08/18 08:33 12/08/18 08:00 Intake and Output: 12/08/18 12/08/18 06:59 18:59 Intake Total 247 Output Total 300 75 Balance -53 -75 - Medications Medications: Current Medications Acetaminophen (Tylenol 325mg Tab) 650 mg PO Q6 PRN PRN Reason: Pain, Mild (1-3) Acetaminophen (Tylenol 325mg Tab) 650 mg PO Q6 PRN PRN Reason: Fever >100.4 F Acetazolamide (Diamox 250 Mg Tab) 250 mg PO BID [facility] Last Admin: 12/08/18 08:31 Dose: 250 mg Albuterol/Ipratropium (Duoneb 3 Mg/0.5 Mg (3 Ml) Ud) 3 ml INH RQ4 [facility] Last Admin: 12/08/18 07:49 Dose: 3 ml Furosemide (Lasix) 60 mg IV DAILY [facility] Last Admin: 12/08/18 08:32 Dose: 60 mg Piperacillin Sod/Tazobactam (Sod 3.375 gm/ Sodium Chloride) 100 mls @ 100 mls/hr IVPB Q6 [facility]; Protocol Last Admin: 12/08/18 09:00 Dose: 100 mls/hr Insulin Detemir (Levemir) 10 units SC [facility] Last Admin: 12/07/18 22:08 Dose: 10 u Insulin Human Regular (Humulin R) 0 units SC ACCU-CHECK [facility]; Protocol Last Admin: 12/08/18 06:30 Dose: Not Given Losartan Potassium (Cozaar) 25 mg PO DAILY [facility] Last Admin: 12/08/18 08:31 Dose: 25 mg Metoprolol Succinate (Toprol Xl) 25 mg PO DAILY [facility] Last Admin: 12/08/18 08:33 Dose: 25 mg Pantoprazole Sodium (Protonix Inj) 40 mg IVP DAILY [facility] Last Admin: 12/08/18 08:32 Dose: 40 mg Potassium Chloride (Potassium Chloride Oral Soln) 40 meq PO BID [facility] Last Admin: 12/08/18 08:32 Dose: 40 meq Risperidone (Risperidone Odt 0.25mg) 0.25 mg PO HS [facility] Last Admin: 12/07/18 21:31 Dose: 0.25 mg Spironolactone (Aldactone) 12.5 mg PO DAILY [facility] - Labs Labs: 12/08/18 04:30 12/08/18 04:30 - Constitutional Appears: No Acute Distress - Head Exam Head Exam: ATRAUMATIC, NORMAL INSPECTION, NORMOCEPHALIC - Eye Exam Eye Exam: EOMI, Normal appearance, PERRL Pupil Exam: NORMAL ACCOMODATION, PERRL - ENT Exam ENT Exam: Mucous Membranes Moist, Normal Exam - Neck Exam Neck Exam: Full ROM, Normal Inspection. absent: Lymphadenopathy - Respiratory Exam Respiratory Exam: Decreased Breath Sounds, Prolonged Expiratory Phase, Rales, NORMAL BREATHING PATTERN - Cardiovascular Exam Cardiovascular Exam: REGULAR RHYTHM, +S1, +S2. absent: Murmur - GI/Abdominal Exam GI & Abdominal Exam: Soft, Normal Bowel Sounds. absent: Tenderness - Rectal Exam Rectal Exam: NORMAL INSPECTION - Extremities Exam Extremities Exam: Full ROM, Normal Capillary Refill, Normal Inspection. absent: Joint Swelling, Pedal Edema - Back Exam Back Exam: NORMAL INSPECTION - Neurological Exam Neurological Exam: Alert, Awake, CN II-XII Intact, Normal Gait, Oriented x3 - Psychiatric Exam Psychiatric exam: Normal Affect, Normal Mood - Skin Skin Exam: Dry, Intact, Normal Color, Warm Assessment and Plan - Assessment and Plan (Free Text) Assessment: COPD WITH HYPERCAPNEIC RESPIRATORY FAILURE--IMPROVED Plan: D/C VENT CONTINUE CURRENT RX
--- NOTE | 2018-12-08 11:17 | CP.CCUPN ---
CCU Subjective - Physician Review Subjective (Free Text): 12/08/18 13:55 The patient was Seen/interviewed and examined by me at the bedside during ICU round, Medical records reviewed and Management issues were discussed and formulated with the house staff. Events reviewed 83 Years old Female with PMHx of HTN, CHF, Diverticulitis, Hypothyroidism, Pneumonia Who initially presents to Emergency department via EMS from senior living for an evaluation of increased lethargy and decreased mentation for 1 day. Patient was recently discharged from [facility] on 11/20/18 status post sepsis, pneumonia, and UTI. She received ABX in senior living and IV fluid challenge in field by paramedics. She was admitted to the ICU for acute Hypercapneic Resp Failure secondary to bilateral Pneumonia and COPD Exacerbation Patient was successfully extubated 12/03 Clinically improving No Vasopressors Awake, Comfortable, NAD Breathing unlabored, on room air O2 sat 95% on 3L nasal cannula Nocturnal BIPAP Afebrile, On Antibiotics with IV Zosyn Blood 11/22, C/S pos Coagulase negative Staph Most recent Blood C/S negative NSR on the monitor Last 24H I&O 650/2200 Patient was out of bed to chair this morning This morning labs revealed No Leucocytosis 4.5, normal renal function BUN/Cr 15/0.7 Hypokalemia 3.5, 20 meq K supplemented Today CXR Stable Bilateral pulmonary vascular congestions, small effusion, Basal atelectasis Patient on Lasix 60 mg IV daily and Aldactone 12.5 mg PO DAILY, She received the Lasix this morning, with good urine output Critical Care Time Spent (in minutes): 36 CCU Objective - Vital Signs / Intake & Output Vital Signs (Last 4 hours): Vital Signs Temp Pulse Resp BP Pulse Ox 12/08/18 10:00 96 H 28 H 125/59 L 95 12/08/18 08:33 84 135/69 12/08/18 08:32 135/69 12/08/18 08:31 84 135/69 12/08/18 08:00 98.5 F 87 13 135/65 99 Intake and Output (Last 8hrs): Intake & Output 12/07/18 12/08/18 12/08/18 22:59 06:59 14:59 Intake Total 229 118 600 Output Total 900 300 575 Balance -671 -182 25 Weight 207 lb 8 oz Intake: IV 4 18 Intake, Piggyback 200 100 100 Oral 25 500 Output: Urine 900 300 575 Urethral (Arias) 900 300 575 - Physical Exam Head: Positive for: Atraumatic, Normocephalic Pupils: Positive for: PERRL Conjunctiva: Positive for: Normal. Negative for: Injected, Icteric Ears: Negative for: Erythema Mouth: Positive for: Moist Mucous Membranes Nose (External): Positive for: Atraumatic Nose (Internal): Positive for: Normal Inspection. Negative for: No Active Bleeding Neck: Positive for: Normal Range of Motion, Trachea Midline. Negative for: JVD Respiratory/Chest: Positive for: Rales, Rhonchi. Negative for: Clear to Auscultation, Respiratory Distress, Accessory Muscle Use, Wheezes Cardiovascular: Positive for: Regular Rate and Rhythm Abdomen: Positive for: Distention, Normal Bowel Sounds. Negative for: Tenderness Upper Extremity: Positive for: Normal Inspection, NORMAL PULSES Lower Extremity: Positive for: Normal Inspection, Edema. Negative for: CALF TENDERNESS Neurological: Positive for: Other (on ventilator, sedated) Psychiatric: Positive for: Alert, Oriented x 3, Normal Concentration, Normal Affect. Negative for: Anxious, Agitated - Medications Active Medications: Active Medications Generic Name Dose Route Start Last Admin Trade Name Freq PRN Reason Stop Dose Admin Acetaminophen 650 mg 12/07/18 20:00 Tylenol 325mg Tab PO Q6 PRN Pain, Mild (1-3) Acetaminophen 650 mg 12/07/18 20:00 Tylenol 325mg Tab PO Q6 PRN Fever >100.4 F Acetazolamide 250 mg 12/07/18 17:00 12/08/18 08:31 Diamox 250 Mg Tab PO 250 mg BID [facility] Administration Albuterol/Ipratropium 3 ml 11/25/18 16:00 12/08/18 07:49 Duoneb 3 Mg/0.5 Mg (3 Ml) Ud INH 3 ml RQ4 [facility] Administration Furosemide 60 mg 12/02/18 09:00 12/08/18 08:32 Lasix IV 60 mg DAILY [facility] Administration Piperacillin Sod/Tazobactam 100 mls @ 100 mls/hr 11/23/18 10:00 12/08/18 09:00 Sod 3.375 gm/ Sodium Chloride IVPB 100 mls/hr Q6 [facility] Administration Protocol Insulin Detemir 10 units 11/22/18 22:00 12/07/18 22:08 Levemir SC 10 u HS [facility] Administration Insulin Human Regular 0 units 11/23/18 12:00 12/08/18 06:30 Humulin R SC Not Given ACCU-CHECK [facility] Protocol Losartan Potassium 25 mg 11/23/18 09:00 12/08/18 08:31 Cozaar PO 25 mg DAILY [facility] Administration Metoprolol Succinate 25 mg 12/07/18 12:45 12/08/18 08:33 Toprol Xl PO 25 mg DAILY [facility] Administration Pantoprazole Sodium 40 mg 12/01/18 14:00 12/08/18 08:32 Protonix Inj IVP 40 mg DAILY [facility] Administration Potassium Chloride 40 meq 12/06/18 09:00 12/08/18 08:32 Potassium Chloride Oral Soln PO 40 meq BID [facility] Administration Risperidone 0.25 mg 12/07/18 22:00 12/07/18 21:31 Risperidone Odt 0.25mg PO 0.25 mg HS [facility] Administration Spironolactone 12.5 mg 11/23/18 09:00 Aldactone PO DAILY [facility] - Patient Studies Lab Studies: Lab Studies 12/08/18 12/08/18 12/08/18 Range/Units 04:30 04:30 03:50 WBC 4.5 L (4.8-10.8) K/uL RBC 3.78 L (3.80-5.20) Mil/uL Hgb 10.5 L (12.0-16.0) g/dL Hct 32.3 L (34.0-47.0) % MCV 85.4 (81.0-99.0) fl MCH 27.7 (27.0-31.0) pg MCHC 32.5 L (33.0-37.0) g/dL RDW 21.0 H (11.5-14.5) % Plt Count 231 (130-400) K/uL Sodium 148 (132-148) mmol/l Potassium 3.7 (3.6-5.0) MMOL/L Chloride 100 (98-107) mmol/L Carbon Dioxide 37 H (22-30) mmol/L Anion Gap 15 (10-20) BUN 15 (7-17) mg/dl Creatinine 0.7 (0.7-1.2) mg/dl Est GFR ( Amer) > 60 Est GFR (Non-Af Amer) > 60 POC Glucose (mg/dL) 145 H (65-110) mg/dL Random Glucose 125 H (65-105) mg/dL Calcium 9.3 (8.4-10.2) mg/dL Total Bilirubin 0.4 (0.2-1.3) mg/dl AST 37 H (14-36) U/L ALT 34 (9-52) U/L Alkaline Phosphatase 57 (38-126) U/L NT-Pro-B Natriuret Pep (0-900) pg/ml Total Protein 6.5 (6.3-8.2) G/DL Albumin 3.2 L (3.5-5.0) g/dL Globulin 3.3 (2.2-3.9) gm/dL Albumin/Globulin Ratio 1.0 (1.0-2.1) 12/07/18 12/07/18 12/07/18 Range/Units 20:50 16:26 16:15 WBC (4.8-10.8) K/uL RBC (3.80-5.20) Mil/uL Hgb (12.0-16.0) g/dL Hct (34.0-47.0) % MCV (81.0-99.0) fl MCH (27.0-31.0) pg MCHC (33.0-37.0) g/dL RDW (11.5-14.5) % Plt Count (130-400) K/uL Sodium (132-148) mmol/l Potassium (3.6-5.0) MMOL/L Chloride (98-107) mmol/L Carbon Dioxide (22-30) mmol/L Anion Gap (10-20) BUN (7-17) mg/dl Creatinine (0.7-1.2) mg/dl Est GFR ( Amer) Est GFR (Non-Af Amer) POC Glucose (mg/dL) 160 H 110 (65-110) mg/dL Random Glucose (65-105) mg/dL Calcium (8.4-10.2) mg/dL Total Bilirubin (0.2-1.3) mg/dl AST (14-36) U/L ALT (9-52) U/L Alkaline Phosphatase (38-126) U/L NT-Pro-B Natriuret Pep 5450 H (0-900) pg/ml Total Protein (6.3-8.2) G/DL Albumin (3.5-5.0) g/dL Globulin (2.2-3.9) gm/dL Albumin/Globulin Ratio (1.0-2.1) 12/07/18 Range/Units 11:28 WBC (4.8-10.8) K/uL RBC (3.80-5.20) Mil/uL Hgb (12.0-16.0) g/dL Hct (34.0-47.0) % MCV (81.0-99.0) fl MCH (27.0-31.0) pg MCHC (33.0-37.0) g/dL RDW (11.5-14.5) % Plt Count (130-400) K/uL Sodium (132-148) mmol/l Potassium (3.6-5.0) MMOL/L Chloride (98-107) mmol/L Carbon Dioxide (22-30) mmol/L Anion Gap (10-20) BUN (7-17) mg/dl Creatinine (0.7-1.2) mg/dl Est GFR ( Amer) Est GFR (Non-Af Amer) POC Glucose (mg/dL) 151 H (65-110) mg/dL Random Glucose (65-105) mg/dL Calcium (8.4-10.2) mg/dL Total Bilirubin (0.2-1.3) mg/dl AST (14-36) U/L ALT (9-52) U/L Alkaline Phosphatase (38-126) U/L NT-Pro-B Natriuret Pep (0-900) pg/ml Total Protein (6.3-8.2) G/DL Albumin (3.5-5.0) g/dL Globulin (2.2-3.9) gm/dL Albumin/Globulin Ratio (1.0-2.1) Laboratory Results - last 24 hr 12/07/18 12/07/18 12/07/18 11:28 16:15 16:26 WBC RBC Hgb Hct MCV MCH MCHC RDW Plt Count Sodium Potassium Chloride Carbon Dioxide Anion Gap BUN Creatinine Est GFR ( Amer) Est GFR (Non-Af Amer) POC Glucose (mg/dL) 151 H 110 Random Glucose Calcium Total Bilirubin AST ALT Alkaline Phosphatase NT-Pro-B Natriuret Pep 5450 H Total Protein Albumin Globulin Albumin/Globulin Ratio 12/07/18 12/08/18 12/08/18 20:50 03:50 04:30 WBC 4.5 L RBC 3.78 L Hgb 10.5 L Hct 32.3 L MCV 85.4 MCH 27.7 MCHC 32.5 L RDW 21.0 H Plt Count 231 Sodium Potassium Chloride Carbon Dioxide Anion Gap BUN Creatinine Est GFR ( Amer) Est GFR (Non-Af Amer) POC Glucose (mg/dL) 160 H 145 H Random Glucose Calcium Total Bilirubin AST ALT Alkaline Phosphatase NT-Pro-B Natriuret Pep Total Protein Albumin Globulin Albumin/Globulin Ratio 12/08/18 04:30 WBC RBC Hgb Hct MCV MCH MCHC RDW Plt Count Sodium 148 Potassium 3.7 Chloride 100 Carbon Dioxide 37 H Anion Gap 15 BUN 15 Creatinine 0.7 Est GFR ( Amer) > 60 Est GFR (Non-Af Amer) > 60 POC Glucose (mg/dL) Random Glucose 125 H Calcium 9.3 Total Bilirubin 0.4 AST 37 H ALT 34 Alkaline Phosphatase 57 NT-Pro-B Natriuret Pep Total Protein 6.5 Albumin 3.2 L Globulin 3.3 Albumin/Globulin Ratio 1.0 Fingerstick Blood Sugar Results: 145 Critical Care Progress Note - Nutrition Nutrition: Nutrition Category Date Time Status Dysphagia/Modified Consistency Diet [DIET] Diets 12/07/18 Dinner Active Assessment/Plan (1) Acute congestive heart failure Current Visit: Yes Status: Acute Comment: NSR on the monitor Today CXR Stable Bilateral pulmonary vascular congestions, small effusion, Basal atelectasis Patient on Lasix 60 mg IV daily and Aldactone 12.5 mg PO DAILY, She received the Lasix this morning, with good urine output Breathing unlabored, on room air O2 sat 95% on 3L nasal cannula Nocturnal BIPAP (2) Acute respiratory failure with hypoxia and hypercarbia Current Visit: Yes Status: Acute Priority: High Comment: Successfully extubated Breathing unlabored, on room air O2 sat 95% on 3L nasal cannula Nocturnal BIPAP OOb to chair (3) Bacteremia Current Visit: Yes Status: Acute Priority: High Comment: Afebrile Continue IV Zosyn Blood C/S pos Coagulase negative Staph IV Vanco was held on 11/30 due to elevated drug level Most recent Blood C/S negative (4) Metabolic encephalopathy Current Visit: Yes Status: Acute Comment: Multifactorial, resolving (5) Sepsis Current Visit: Yes Status: Acute Priority: High - Assessment and Plan (Free Text) Assessment: # HOB maintained at 30 degrees. # GI/DVT PPX # Stress Ulcer prophylaxis with Protonix 40 mg IVP QD # DVT prophylaxis with SCD, Lovenox # Code Status: Full code Total critical care time 36 minutes
[2018-12-08] MEDS ORDERED: Potassium Chloride 20 mEq/15 ml LIQ UD PO ONE (14:06)
[2018-12-08] MEDS: Enoxaparin 40 mg Syringe SC SCH (16:05)
[2018-12-08] MEDS: RISPERIDONE 0.25 MG ODT PO SCH (21:03)
[2018-12-08] MEDS: Insulin Detemir 100 Units/ml Inj SC SCH (21:03)
--- NOTE | 2018-12-08 22:21 | CP.PCM.PN ---
<Pierce Yo - Last Filed: 12/08/18 23:32> Subjective - Date & Time of Evaluation Date of Evaluation: 12/08/18 Time of Evaluation: 22:19 - Subjective Subjective: Pierce Yo DO PGY1 - Internal Medicine Services Manager - Cardiology Note for Dr. Kim Patient was seen and examined at bedside this evening in ICU. Patient continues to have atrial sensed atrial paced rhythm. Patient had physical therapy today, she tolerated well. Voicing no complaints at bedside this evening. No concerns voiced by a nursing. Objective - Vital Signs/Intake and Output Vital Signs (last 24 hours): Temp Pulse Resp BP Pulse Ox 98.3 F 89 22 114/55 L 94 L 12/08/18 16:00 12/08/18 20:00 12/08/18 20:00 12/08/18 20:00 12/08/18 20:00 Intake and Output: 12/08/18 12/09/18 18:59 06:59 Intake Total 1300 4 Output Total 1250 Balance 50 4 - Medications Medications: Current Medications Acetaminophen (Tylenol 325mg Tab) 650 mg PO Q6 PRN PRN Reason: Pain, Mild (1-3) Acetaminophen (Tylenol 325mg Tab) 650 mg PO Q6 PRN PRN Reason: Fever >100.4 F Acetazolamide (Diamox 250 Mg Tab) 250 mg PO BID [facility] Last Admin: 12/08/18 16:05 Dose: 250 mg Albuterol/Ipratropium (Duoneb 3 Mg/0.5 Mg (3 Ml) Ud) 3 ml INH RQ4 [facility] Last Admin: 12/08/18 19:08 Dose: 3 ml Enoxaparin Sodium (Lovenox) 40 mg SC DAILY [facility]; Protocol Last Admin: 12/08/18 16:05 Dose: 40 mg Furosemide (Lasix) 60 mg IV DAILY [facility] Last Admin: 12/08/18 08:32 Dose: 60 mg Piperacillin Sod/Tazobactam (Sod 3.375 gm/ Sodium Chloride) 100 mls @ 100 mls/hr IVPB Q6 [facility]; Protocol Last Admin: 12/08/18 21:05 Dose: 100 mls/hr Insulin Detemir (Levemir) 10 units SC HS [facility] Last Admin: 12/08/18 21:03 Dose: 10 u Insulin Human Regular (Humulin R) 0 units SC ACCU-CHECK [facility]; Protocol Last Admin: 12/08/18 16:31 Dose: Not Given Losartan Potassium (Cozaar) 25 mg PO DAILY [facility] Last Admin: 12/08/18 08:31 Dose: 25 mg Metoprolol Succinate (Toprol Xl) 25 mg PO DAILY [facility] Last Admin: 12/08/18 08:33 Dose: 25 mg Potassium Chloride (Potassium Chloride Oral Soln) 40 meq PO BID [facility] Last Admin: 12/08/18 16:06 Dose: 40 meq Risperidone (Risperidone Odt 0.25mg) 0.25 mg PO HS [facility] Last Admin: 12/08/18 21:03 Dose: 0.25 mg Spironolactone (Aldactone) 12.5 mg PO DAILY [facility] - Labs Labs: 12/08/18 04:30 12/08/18 04:30 - Constitutional Appears: Non-Toxic, NAD, Does not show overt lethargy on exam - Eye Exam Eye Exam: PERRL. absent: Scleral icterus - ENT Exam Additional comments: dry mucous membranes - Respiratory Exam Respiratory Exam: Clear to Ausculation Bilateral, NORMAL BREATHING PATTERN - Cardiovascular Exam Cardiovascular Exam: RRR, +S1, +S2. absent: Murmur - GI/Abdominal Exam GI & Abdominal Exam: Soft - Extremities Exam Extremities Exam: Pedal Edema Additional comments: Upper extremity edematous ; Lower extremities warm w/ good cap refill bilaterally - Neurological Exam Additional comments: Alert, Awake, Responsive, Follows Commands - Skin Skin Exam: Dry, Normal Color, Warm Assessment and Plan (1) Acute respiratory failure with hypoxia and hypercarbia Status: Acute (2) Diabetes mellitus type 2 in obese Status: Acute (3) Hypertension Status: Acute - Assessment and Plan (Free Text) Plan: Recurrent hypercapnic respiratory failure etiology unknown. DC Lasix Start Bumex 1 BID Continue Cozaar 25 QD Aldactone 12.5 QD Toprol XL 25 QD Will consider for future cardiac cath Further reccs per Dr. Kim to follow <Douglas Kim - Last Filed: 12/08/18 23:35> Objective - Vital Signs/Intake and Output Vital Signs (last 24 hours): Temp Pulse Resp BP Pulse Ox 98.3 F 90 26 H 113/48 L 100 12/08/18 16:00 12/08/18 22:00 12/08/18 22:00 12/08/18 22:00 12/08/18 22:00 Intake and Output: 12/08/18 12/09/18 18:59 06:59 Intake Total 1300 164 Output Total 1250 Balance 50 164 - Medications Medications: Current Medications Acetaminophen (Tylenol 325mg Tab) 650 mg PO Q6 PRN PRN Reason: Pain, Mild (1-3) Acetaminophen (Tylenol 325mg Tab) 650 mg PO Q6 PRN PRN Reason: Fever >100.4 F Acetazolamide (Diamox 250 Mg Tab) 250 mg PO BID [facility] Last Admin: 12/08/18 16:05 Dose: 250 mg Albuterol/Ipratropium (Duoneb 3 Mg/0.5 Mg (3 Ml) Ud) 3 ml INH RQ4 [facility] Last Admin: 12/08/18 19:08 Dose: 3 ml Bumetanide (Bumex) 1 mg IVP DAILY [facility] Enoxaparin Sodium (Lovenox) 40 mg SC DAILY [facility]; Protocol Last Admin: 12/08/18 16:05 Dose: 40 mg Piperacillin Sod/Tazobactam (Sod 3.375 gm/ Sodium Chloride) 100 mls @ 100 mls/hr IVPB Q6 [facility]; Protocol Last Admin: 12/08/18 21:05 Dose: 100 mls/hr Insulin Detemir (Levemir) 10 units SC [facility] Last Admin: 12/08/18 21:03 Dose: 10 u Insulin Human Regular (Humulin R) 0 units SC ACCU-CHECK [facility]; Protocol Last Admin: 12/08/18 16:31 Dose: Not Given Losartan Potassium (Cozaar) 25 mg PO DAILY [facility] Last Admin: 12/08/18 08:31 Dose: 25 mg Metoprolol Succinate (Toprol Xl) 25 mg PO DAILY [facility] Last Admin: 12/08/18 08:33 Dose: 25 mg Potassium Chloride (Potassium Chloride Oral Soln) 40 meq PO BID [facility] Last Admin: 12/08/18 16:06 Dose: 40 meq Risperidone (Risperidone Odt 0.25mg) 0.25 mg PO HS [facility] Last Admin: 12/08/18 21:03 Dose: 0.25 mg Spironolactone (Aldactone) 12.5 mg PO DAILY [facility] - Labs Labs: 12/08/18 04:30 12/08/18 04:30 Attending/Attestation - Attestation I have personally seen and examined this patient.: Yes I have fully participated in the care of the patient.: Yes I have reviewed all pertinent clinical information, including history, physical exam and plan: Yes Notes (Text): 12/08/18 23:34 recs as per resident note dc lasix chg to bumex 1mg IV daily for now cont diamox and aldactone will plan for [facility]Cx on Friday at [facility] after discussing with family
[2018-12-09] MEDS: Piperacillin/Tazobact 3.375 GM in Sodium Chloride 0.9% 100 ML IVPB SCH ×4 (04:05→21:33)
[2018-12-09] MEDS: Albuterol-Ipratrop 3 mg / 0.5 (3 ml) UD INH SCH ×6 (04:42→22:57)
[2018-12-09 05:03] LABS: ABG ALLEN TEST YES; ARTERIAL BLOOD GAS HCO3 34.7 mmol/L (21-28); ARTERIAL BLOOD GAS O2 SAT 98.4 % (95-98); ARTERIAL BLOOD GAS PCO2 65 mm/Hg (35-45); ARTERIAL BLOOD GAS PO2 85 mm/Hg (80-100); ARTERIAL BLOOD GAS TCO2 42.3 mmol/L (22-28)
[2018-12-09 05:29] LABS: BASO % 0.5 % (0.0-2.0); EOS # 0.4 K/uL (0.0-0.7); EOS % 8.9 % (0.0-4.0); HEMOGLOBIN 10.5 g/dL (12.0-16.0); LYMPH % 22.5 % (20.0-40.0); MEAN CELL VOLUME 86.5 fl (81.0-99.0); MEAN CORPUSCULAR HEMOGLOBIN 27.3 pg (27.0-31.0); MEAN CORPUSCULAR HGB CONC 31.5 g/dL (33.0-37.0); MEAN PLATELET VOLUME 9.3 fl (7.2-11.7); MONO # 0.4 K/uL (0.0-0.8); MONO % 9.3 % (0.0-10.0); NEUT # 2.6 K/uL (1.8-7.0); NEUT % 58.8 % (50.0-75.0); NRBC % 0.1 % (0.0-0.0); RBC 3.83 Mil/uL (3.80-5.20); RED CELL DISTRIBUTION WIDTH 21.3 % (11.5-14.5); WHITE BLOOD COUNT 4.3 K/uL (4.8-10.8)
[2018-12-09 05:35] LABS: ALBUMIN 3.2 g/dL (3.5-5.0); ALT/SGPT 27 U/L (9-52); AST/SGOT 28 U/L (14-36); BLOOD UREA NITROGEN 14 mg/dl (7-17); CALCIUM 9.3 mg/dL (8.4-10.2); GFR NON-AFRICAN AMERICAN 60
[2018-12-09] MEDS: Insulin Regular 100 units/ml SC SCH ×4 (06:14→22:08)
[2018-12-09] MEDS ORDERED: Potassium Chloride 20 mEq/15 ml LIQ UD PO ONE (07:10)
[2018-12-09] MEDS: Enoxaparin 40 mg Syringe SC SCH (08:52)
[2018-12-09] MEDS: Potassium Chloride 20 mEq/15 ml LIQ UD PO SCH ×2 (08:53→16:37)
[2018-12-09] MEDS: Metoprolol Succinate 25 mg XL Tab PO SCH (08:54)
--- NOTE | 2018-12-09 09:03 | CP.PCM.PN ---
<Elmira Russ - Last Filed: 12/09/18 10:57> Subjective - Date & Time of Evaluation Date of Evaluation: 12/09/18 Time of Evaluation: 09:02 - Subjective Subjective: No acute overnight events. Pt on BIPAP overnight. Pt seen and examined this AM with Dr. Zhang. Noted to be sleeping comfortably with BIPAP on Not as awake as previously, sleep and lethargic. VS remain stable, O2 saturation at 96%. Objective - Vital Signs/Intake and Output Vital Signs (last 24 hours): Temp Pulse Resp BP Pulse Ox 97.1 F L 86 28 H 123/56 L 97 12/09/18 08:00 12/09/18 08:54 12/09/18 08:00 12/09/18 08:54 12/09/18 08:00 Intake and Output: 12/09/18 12/09/18 06:59 18:59 Intake Total 282 Output Total 1000 40 Balance -718 -40 - Medications Medications: Current Medications Acetaminophen (Tylenol 325mg Tab) 650 mg PO Q6 PRN PRN Reason: Pain, Mild (1-3) Acetaminophen (Tylenol 325mg Tab) 650 mg PO Q6 PRN PRN Reason: Fever >100.4 F Acetazolamide (Diamox 250 Mg Tab) 250 mg PO BID [facility] Last Admin: 12/09/18 08:52 Dose: 250 mg Albuterol/Ipratropium (Duoneb 3 Mg/0.5 Mg (3 Ml) Ud) 3 ml INH RQ4 [facility] Last Admin: 12/09/18 07:52 Dose: 3 ml Bumetanide (Bumex) 1 mg IVP DAILY [facility] Enoxaparin Sodium (Lovenox) 40 mg SC DAILY [facility]; Protocol Last Admin: 12/09/18 08:52 Dose: 40 mg Piperacillin Sod/Tazobactam (Sod 3.375 gm/ Sodium Chloride) 100 mls @ 100 mls/hr IVPB Q6 [facility]; Protocol Last Admin: 12/09/18 09:01 Dose: 100 mls/hr Insulin Detemir (Levemir) 10 units SC HS [facility] Last Admin: 12/08/18 21:03 Dose: 10 u Insulin Human Regular (Humulin R) 0 units SC ACCU-CHECK [facility]; Protocol Last Admin: 12/09/18 06:14 Dose: Not Given Losartan Potassium (Cozaar) 25 mg PO DAILY [facility] Last Admin: 12/09/18 08:52 Dose: 25 mg Metoprolol Succinate (Toprol Xl) 25 mg PO DAILY [facility] Last Admin: 12/09/18 08:54 Dose: 25 mg Potassium Chloride (Potassium Chloride Oral Soln) 40 meq PO BID [facility] Last Admin: 12/09/18 08:53 Dose: 40 meq Risperidone (Risperidone Odt 0.25mg) 0.25 mg PO HS [facility] Last Admin: 12/08/18 21:03 Dose: 0.25 mg Spironolactone (Aldactone) 12.5 mg PO DAILY [facility] - Labs Labs: 12/09/18 04:20 12/09/18 04:20 - Constitutional Appears: No Acute Distress, Other (BIPAP mask on ) - Head Exam Head Exam: NORMAL INSPECTION - Respiratory Exam Respiratory Exam: Decreased Breath Sounds, NORMAL BREATHING PATTERN. absent: Rales, Wheezes - Cardiovascular Exam Cardiovascular Exam: REGULAR RHYTHM, +S1, +S2 - GI/Abdominal Exam GI & Abdominal Exam: Distended, Soft, Normal Bowel Sounds. absent: Guarding, Tenderness - Neurological Exam Neurological Exam: Alert, Awake Assessment and Plan (1) Bacteremia Status: Resolved (2) Sepsis Status: Resolved (3) CHF (congestive heart failure) Status: Chronic (4) Respiratory failure Status: Acute (5) Anemia Status: Chronic (6) Pleural effusion Status: Acute (7) Hypercarbia Status: Acute - Assessment and Plan (Free Text) Assessment: Assessment/Plan: 83 YO female with PMHx of HTN, CHF (w/ pacemaker), DM, hypothyroidism, admitted due to recurrent hypercapneic respiratory failure. Patient brought to ED on 11/22/18 for [place] due to AMS, intubated and admitted to ICU. Successfully extubated on 12/03/18. Recurrent hypercapneic respiratory failure s/p intubation and on MV on 11/22/18, ext 12/03/18 Persistent hypercapnia, worse this AM will hold risperadone today ABG repeat in AM pulmonary on board c/w BIPAPA at night and O2 as needed CXR 12/06; evelyne congestion and b/l effusions Encephalopathy, AMS Likely 2/2 to hypercapnia, respiratory failure waxing and waning based on CO levels Generally improving, close to Baseline C/to monitor Ct Head no acute findings Neurology consult if no improvement is noted CHF, pacemaker, chronic Cardiology on board; med adjustments appreciated Per cardio, d/c lasix and pt was started on bumex, c/w cont diamox and aldactone plan for [facility]Cx on Friday at [facility] after discussing with family Bacteremia, sepsis Blood cx 11/22/18: Gram positive cocci in pairs ID on board BCx 11/24 neg Anemia, Normocytic likely acute on chronic No acute source of GI bleed Pleural effusion improving 2/2 heart failure, fluid status, renal status Diastolic dysfunction on echo 10/27 CXR noted Pleural Infiltrate CXR bilateral lower lobe, alveolar type infiltrate c/w IV abx, ID on board DVT prophylx: Lovenox SC Cont to work with physical therapy to work on gait and strengthening <Nakul Zhang K - Last Filed: 12/10/18 11:48> Objective - Vital Signs/Intake and Output Vital Signs (last 24 hours): Temp Pulse Resp BP Pulse Ox 98.1 F 74 24 113/59 L 100 12/10/18 08:18 12/10/18 11:37 12/10/18 10:00 12/10/18 10:00 12/10/18 10:00 Intake and Output: 12/09/18 12/10/18 23:59 11:59 Intake Total 904 214 Output Total 600 450 Balance 304 -236 - Medications Medications: Current Medications Acetaminophen (Tylenol 325mg Tab) 650 mg PO Q6 PRN PRN Reason: Pain, Mild (1-3) Acetaminophen (Tylenol 325mg Tab) 650 mg PO Q6 PRN PRN Reason: Fever >100.4 F Acetazolamide (Diamox 250 Mg Tab) 250 mg PO BID [facility] Last Admin: 12/10/18 09:13 Dose: Not Given Albuterol/Ipratropium (Duoneb 3 Mg/0.5 Mg (3 Ml) Ud) 3 ml INH RQ4 [facility] Last Admin: 12/10/18 11:36 Dose: 3 ml Bumetanide (Bumex) 1 mg IVP DAILY [facility] Last Admin: 12/10/18 09:10 Dose: 1 mg Enoxaparin Sodium (Lovenox) 40 mg SC DAILY [facility]; Protocol Last Admin: 12/10/18 09:13 Dose: 40 mg Piperacillin Sod/Tazobactam (Sod 3.375 gm/ Sodium Chloride) 100 mls @ 100 mls/hr IVPB Q6 [facility]; Protocol Last Admin: 12/10/18 09:16 Dose: 100 mls/hr Insulin Detemir (Levemir) 10 units SC [facility] Last Admin: 12/09/18 22:08 Dose: 10 u Insulin Human Regular (Humulin R) 0 units SC ACCU-CHECK [facility]; Protocol Last Admin: 12/10/18 06:26 Dose: 2 u Losartan Potassium (Cozaar) 25 mg PO DAILY [facility] Last Admin: 12/10/18 09:11 Dose: Not Given Metoprolol Succinate (Toprol Xl) 25 mg PO DAILY [facility] Last Admin: 12/10/18 09:13 Dose: Not Given Potassium Chloride (Potassium Chloride Oral Soln) 40 meq PO BID [facility] Last Admin: 12/10/18 09:13 Dose: Not Given Risperidone (Risperidone Odt 0.25mg) 0.25 mg PO [facility] Last Admin: 12/08/18 21:03 Dose: 0.25 mg Spironolactone (Aldactone) 12.5 mg PO DAILY [facility] Last Admin: 12/10/18 09:11 Dose: Not Given - Labs Labs: 12/10/18 04:35 12/10/18 04:35 PT 13.7 Seconds (9.8-13.1) H 12/10/18 04:35 INR 1.2 12/10/18 04:35 APTT 35.2 Seconds (25.6-37.1) 12/10/18 04:35 Assessment and Plan - Assessment and Plan (Free Text) Assessment: Patient was personally seen and examined by me in rounds with residents. Available labs and diagnostic data reviewed. Case, Patient's condition and management plan discussed with residents in rounds. Agree with resident's progress note. Plan: As ordered.
--- NOTE | 2018-12-09 10:11 | CP.PCM.PN ---
Subjective - Date & Time of Evaluation Date of Evaluation: 12/09/18 Time of Evaluation: 10:14 - Subjective Subjective: CASE DISCUSSED WITH SON AT BEDSIDE--ALL QUESTIONS ANSWERED SON WANTS AGGRESSIVE THERAPY FOR NOW PT IS DROWSY BUT EASILY AROUSABLE Objective - Vital Signs/Intake and Output Vital Signs (last 24 hours): Temp Pulse Resp BP Pulse Ox 97.1 F L 86 28 H 123/56 L 97 12/09/18 08:00 12/09/18 08:54 12/09/18 08:00 12/09/18 08:54 12/09/18 08:00 Intake and Output: 12/09/18 12/09/18 06:59 18:59 Intake Total 282 Output Total 1000 40 Balance -718 -40 - Medications Medications: Current Medications Acetaminophen (Tylenol 325mg Tab) 650 mg PO Q6 PRN PRN Reason: Pain, Mild (1-3) Acetaminophen (Tylenol 325mg Tab) 650 mg PO Q6 PRN PRN Reason: Fever >100.4 F Acetazolamide (Diamox 250 Mg Tab) 250 mg PO BID [facility] Last Admin: 12/09/18 08:52 Dose: 250 mg Albuterol/Ipratropium (Duoneb 3 Mg/0.5 Mg (3 Ml) Ud) 3 ml INH RQ4 [facility] Last Admin: 12/09/18 07:52 Dose: 3 ml Bumetanide (Bumex) 1 mg IVP DAILY [facility] Enoxaparin Sodium (Lovenox) 40 mg SC DAILY [facility]; Protocol Last Admin: 12/09/18 08:52 Dose: 40 mg Piperacillin Sod/Tazobactam (Sod 3.375 gm/ Sodium Chloride) 100 mls @ 100 mls/hr IVPB Q6 [facility]; Protocol Last Admin: 12/09/18 09:01 Dose: 100 mls/hr Insulin Detemir (Levemir) 10 units SC HS [facility] Last Admin: 12/08/18 21:03 Dose: 10 u Insulin Human Regular (Humulin R) 0 units SC ACCU-CHECK [facility]; Protocol Last Admin: 12/09/18 06:14 Dose: Not Given Losartan Potassium (Cozaar) 25 mg PO DAILY [facility] Last Admin: 12/09/18 08:52 Dose: 25 mg Metoprolol Succinate (Toprol Xl) 25 mg PO DAILY [facility] Last Admin: 12/09/18 08:54 Dose: 25 mg Potassium Chloride (Potassium Chloride Oral Soln) 40 meq PO BID [facility] Last Admin: 12/09/18 08:53 Dose: 40 meq Risperidone (Risperidone Odt 0.25mg) 0.25 mg PO HS [facility] Last Admin: 12/08/18 21:03 Dose: 0.25 mg Spironolactone (Aldactone) 12.5 mg PO DAILY [facility] - Labs Labs: 12/09/18 04:20 12/09/18 04:20 - Constitutional Appears: Chronically Ill - Head Exam Head Exam: ATRAUMATIC, NORMAL INSPECTION, NORMOCEPHALIC - Eye Exam Eye Exam: EOMI, Normal appearance, PERRL Pupil Exam: NORMAL ACCOMODATION, PERRL - ENT Exam ENT Exam: Mucous Membranes Moist, Normal Exam - Neck Exam Neck Exam: Full ROM, Normal Inspection. absent: Lymphadenopathy - Respiratory Exam Respiratory Exam: Decreased Breath Sounds, Prolonged Expiratory Phase, Rales, NORMAL BREATHING PATTERN Additional comments: 02 SAT--96% - Cardiovascular Exam Cardiovascular Exam: REGULAR RHYTHM, +S1, +S2. absent: Murmur - GI/Abdominal Exam GI & Abdominal Exam: Soft, Normal Bowel Sounds. absent: Tenderness - Rectal Exam Rectal Exam: NORMAL INSPECTION - Extremities Exam Extremities Exam: Full ROM, Normal Capillary Refill, Normal Inspection. absent: Joint Swelling, Pedal Edema - Back Exam Back Exam: NORMAL INSPECTION - Psychiatric Exam Psychiatric exam: Normal Affect, Normal Mood - Skin Skin Exam: Dry, Intact, Normal Color, Warm Assessment and Plan - Assessment and Plan (Free Text) Assessment: ACUTE HYPERCAPNEIC RESPIRATORY FAILURE COPD EXAC CHF--ACUTE ASHD Plan: CONTINUE BIPAP AT BEDTIME WILL FOLLOW WITH YOU
--- NOTE | 2018-12-09 16:11 | CP.CCUPN ---
CCU Subjective - Physician Review Subjective (Free Text): Extubated 7 days ago and resp status still tenuous, now notably more lethargic in the AM. Does not respond nor awaken when given a reprieve off of BiPAP support from the overnight period. Opens eyes to only painful stimulus, but no sustained wakefulness noted. PCO2 noted to be in the mid-60s this AM. Patient now returned back to BiPAP support. Settings to be prn adjusted to maintain TV above 300ml. Afebrile, no fever spikes overnight, SBP 110s; HR 80s paced, fluid balance negative 0.6L. ROS: No other pertinent negs or positives on 10+ system review. PMSFH: All other Nursing and physician documentation reviewed to date; no new pertinent info noted relevant to current medical problems. EXAM- HEENT: no icterus, no gaze preference NECK: No JVD visible given short neck and overall obesity, supple, carotids equal upstroke bilat/no bruit CHEST: decreased BS at the bases, no wheezes audible bilaterally. HEART: regular, distant, S1S2, no rubs or murmurs noted ABD: soft, obese, nontender, no guarding, no organomegaly, BS hypoactive. EXT: +1 leg edema- SCDs on bilat, no calf tenderness or palpable cords, distal pulses intact and symmetrical. RUE single lumen PICC. NEURO: withdraws to pain, + tone in all extremities. SKIN: no rashes, warm and dry LABS: WBC= 4.3 HGB= 10.5 PLTs= 231K Na= 147 K= 3.4 CL= 104 HCO3=38 BUN/Cr= 14/0.9 BS= 133 IMPRESSION / MAJOR PROBLEMS NOW: 1. Acute Hypercapneic Resp Failure, 2 bilat Pneumonia / COPD Exacerbation 2. Metabolic Encephalopathy with AMS 2 #1 3. h/o CHF with DDysfx 4. h/o DM II PLAN: 1. Medications re-reviewed: Risperdal started 2 days ago. Will discontinue for now, see no need for resumption of atypical antipsychotics since there has been no hyperactive psychomotor agitation, nor any bipolar type personality changes. Will avoid any further sedatives or anxiolytics. 2. Lasix changed to Bumex, K supplemented. Lactates are normal. 3. If she awakens a bit more, encourage incentive spirometry, place bed into chair configuration if possible , or try to mobilize OOB. 4. Clarify Advance Directives.
--- NOTE | 2018-12-09 20:55 | CP.PCM.PN ---
<Pierce Yo - Last Filed: 12/09/18 20:51> Subjective - Date & Time of Evaluation Date of Evaluation: 12/09/18 Time of Evaluation: 20:51 - Subjective Subjective: Pierce Yo DO PGY1 - Internal Medicine Job Compositor - Cardiology Note for Dr. Kim Seen and examined at bedside this evening in ICU. Patient is sleeping at time of evaluation. Throughout the day patient has been lethargic on and off of bipap. Objective - Vital Signs/Intake and Output Vital Signs (last 24 hours): Temp Pulse Resp BP Pulse Ox 98.7 F 88 27 H 97/52 L 97 12/09/18 20:00 12/09/18 20:00 12/09/18 20:00 12/09/18 20:00 12/09/18 20:00 Intake and Output: 12/09/18 12/10/18 18:59 06:59 Intake Total 1300 4 Output Total 740 Balance 560 4 - Medications Medications: Current Medications Acetaminophen (Tylenol 325mg Tab) 650 mg PO Q6 PRN PRN Reason: Pain, Mild (1-3) Acetaminophen (Tylenol 325mg Tab) 650 mg PO Q6 PRN PRN Reason: Fever >100.4 F Acetazolamide (Diamox 250 Mg Tab) 250 mg PO BID [facility] Last Admin: 12/09/18 16:34 Dose: 250 mg Albuterol/Ipratropium (Duoneb 3 Mg/0.5 Mg (3 Ml) Ud) 3 ml INH RQ4 [facility] Last Admin: 12/09/18 19:28 Dose: 3 ml Bumetanide (Bumex) 1 mg IVP DAILY [facility] Last Admin: 12/09/18 10:13 Dose: 1 mg Enoxaparin Sodium (Lovenox) 40 mg SC DAILY [facility]; Protocol Last Admin: 12/09/18 08:52 Dose: 40 mg Piperacillin Sod/Tazobactam (Sod 3.375 gm/ Sodium Chloride) 100 mls @ 100 mls/hr IVPB Q6 [facility]; Protocol Last Admin: 12/09/18 16:34 Dose: 100 mls/hr Insulin Detemir (Levemir) 10 units SC [facility] Last Admin: 12/08/18 21:03 Dose: 10 u Insulin Human Regular (Humulin R) 0 units SC ACCU-CHECK [facility]; Protocol Last Admin: 12/09/18 16:46 Dose: Not Given Losartan Potassium (Cozaar) 25 mg PO DAILY [facility] Last Admin: 12/09/18 08:52 Dose: 25 mg Metoprolol Succinate (Toprol Xl) 25 mg PO DAILY [facility] Last Admin: 12/09/18 08:54 Dose: 25 mg Potassium Chloride (Potassium Chloride Oral Soln) 40 meq PO BID [facility] Last Admin: 12/09/18 16:37 Dose: 40 meq Risperidone (Risperidone Odt 0.25mg) 0.25 mg PO HS [facility] Last Admin: 12/08/18 21:03 Dose: 0.25 mg Spironolactone (Aldactone) 12.5 mg PO DAILY [facility] Last Admin: 12/09/18 11:34 Dose: 12.5 mg - Labs Labs: 12/09/18 04:20 12/09/18 04:20 - Constitutional Appears: Non-Toxic, NAD, Does not show overt lethargy on exam - Eye Exam Eye Exam: PERRL. absent: Scleral icterus - ENT Exam Additional comments: dry mucous membranes - Respiratory Exam Respiratory Exam: Clear to Ausculation Bilateral, NORMAL BREATHING PATTERN - Cardiovascular Exam Cardiovascular Exam: RRR, +S1, +S2. absent: Murmur - GI/Abdominal Exam GI & Abdominal Exam: Soft - Extremities Exam Extremities Exam: Pedal Edema Additional comments: Upper extremity edematous ; Lower extremities warm w/ good cap refill bilaterally - Neurological Exam Additional comments: Alert, Awake, Responsive, Follows Commands - Skin Skin Exam: Dry, Normal Color, Warm Assessment and Plan (1) Acute respiratory failure with hypoxia and hypercarbia Status: Acute (2) Diabetes mellitus type 2 in obese Status: Acute (3) Hypertension Status: Acute - Assessment and Plan (Free Text) Plan: Recurrent hypercapnic respiratory failure etiology unknown. Continue Start Bumex 1 IVP Daily Cozaar 25 QD Aldactone 12.5 QD Toprol XL 25 QD Will take patient for cardiac cath on Friday12/11/18 Follow up BNP tomorrow AM Further reccs per Dr. Kim to follow <Douglas Kim - Last Filed: 12/14/18 07:04> Objective - Vital Signs/Intake and Output Vital Signs (last 24 hours): Temp Pulse Resp BP Pulse Ox 97.8 F 75 13 122/56 L 97 12/14/18 00:00 12/14/18 02:00 12/14/18 02:00 12/14/18 02:00 12/14/18 02:00 Intake and Output: 12/14/18 12/14/18 06:59 18:59 Intake Total 0 Balance 0 - Medications Medications: Current Medications Acetaminophen (Tylenol 325mg Tab) 650 mg PO Q6 PRN PRN Reason: Pain, Mild (1-3) Acetaminophen (Tylenol 325mg Tab) 650 mg PO Q6 PRN PRN Reason: Fever >100.4 F Acetazolamide (Diamox 250 Mg Tab) 250 mg PO BID [facility] Last Admin: 12/13/18 16:40 Dose: 250 mg Albuterol/Ipratropium (Duoneb 3 Mg/0.5 Mg (3 Ml) Ud) 3 ml INH RQ4 [facility] Last Admin: 12/14/18 03:29 Dose: 3 ml Bumetanide (Bumex) 1 mg IVP DAILY [facility] Last Admin: 12/13/18 09:47 Dose: 1 mg Enoxaparin Sodium (Lovenox) 40 mg SC DAILY [facility]; Protocol Last Admin: 12/13/18 09:46 Dose: 40 mg Insulin Detemir (Levemir) 10 units SC HS [facility] Last Admin: 12/13/18 22:03 Dose: 10 units Insulin Human Regular (Humulin R) 0 units SC ACCU-CHECK [facility]; Protocol Last Admin: 12/13/18 22:30 Dose: Not Given Losartan Potassium (Cozaar) 25 mg PO DAILY [facility] Last Admin: 12/13/18 09:46 Dose: 25 mg Metoprolol Succinate (Toprol Xl) 25 mg PO DAILY [facility] Last Admin: 12/13/18 09:45 Dose: 25 mg Potassium Chloride (Potassium Chloride Oral Soln) 40 meq PO BID [facility] Last Admin: 12/13/18 16:50 Dose: 40 meq Risperidone (Risperidone Odt 0.25mg) 0.25 mg PO HS [facility] Last Admin: 12/08/18 21:03 Dose: 0.25 mg Spironolactone (Aldactone) 12.5 mg PO DAILY [facility] Last Admin: 12/13/18 09:45 Dose: 12.5 mg - Labs Labs: 12/14/18 04:30 12/14/18 04:30 PT 13.7 Seconds (9.8-13.1) H 12/10/18 04:35 INR 1.2 12/10/18 04:35 APTT 35.2 Seconds (25.6-37.1) 12/10/18 04:35 Attending/Attestation - Attestation I have personally seen and examined this patient.: Yes I have fully participated in the care of the patient.: Yes I have reviewed all pertinent clinical information, including history, physical exam and plan: Yes
[2018-12-09] MEDS: Insulin Detemir 100 Units/ml Inj SC SCH (22:08)
[2018-12-10] MEDS: Albuterol-Ipratrop 3 mg / 0.5 (3 ml) UD INH SCH ×6 (03:46→23:34)
[2018-12-10] MEDS: Piperacillin/Tazobact 3.375 GM in Sodium Chloride 0.9% 100 ML IVPB SCH ×4 (03:54→21:33)
[2018-12-10 04:25] LABS: ABG ALLEN TEST YES; ARTERIAL BLOOD GAS HCO3 31.9 mmol/L (21-28); ARTERIAL BLOOD GAS HEMOGLOBIN 10.5 g/dL (11.7-17.4); ARTERIAL BLOOD GAS O2 CAPACITY 14.4 mL/dL (16-24); ARTERIAL BLOOD GAS O2 CONTENT 13.6 ML/dL (15-23); ARTERIAL BLOOD GAS O2 SAT 94.7 % (95-98); ARTERIAL BLOOD GAS PCO2 59 mm/Hg (35-45); ARTERIAL BLOOD GAS PH 7.39 (7.35-7.45); ARTERIAL BLOOD GAS PO2 62 mm/Hg (80-100); ARTERIAL BLOOD GAS TCO2 37.5 mmol/L (22-28)
[2018-12-10 05:04] LABS: BASO % 0.7 % (0.0-2.0); EOS # 0.4 K/uL (0.0-0.7); EOS % 9.8 % (0.0-4.0); HEMOGLOBIN 10.4 g/dL (12.0-16.0); LYMPH % 23.9 % (20.0-40.0); MEAN CORPUSCULAR HEMOGLOBIN 27.4 pg (27.0-31.0); MEAN CORPUSCULAR HGB CONC 31.4 g/dL (33.0-37.0); MEAN PLATELET VOLUME 8.7 fl (7.2-11.7); MONO # 0.4 K/uL (0.0-0.8); MONO % 8.9 % (0.0-10.0); NEUT # 2.5 K/uL (1.8-7.0); NEUT % 56.7 % (50.0-75.0); NRBC % 0.1 % (0.0-0.0); RBC 3.79 Mil/uL (3.80-5.20); RED CELL DISTRIBUTION WIDTH 21.2 % (11.5-14.5); WHITE BLOOD COUNT 4.4 K/uL (4.8-10.8)
[2018-12-10 05:08] LABS: INR 1.2; PROTHROMBIN TIME 13.7 Seconds (9.8-13.1)
[2018-12-10 05:10] LABS: PARTIAL THROMBOPLASTIN TIME 35.2 Seconds (25.6-37.1)
[2018-12-10 05:19] LABS: B-TYPE NATRIURETIC PEPTIDE 1470 pg/ml (0-900)
[2018-12-10 05:21] LABS: ALBUMIN 3.2 g/dL (3.5-5.0); ALT/SGPT 31 U/L (9-52); AST/SGOT 25 U/L (14-36); BLOOD UREA NITROGEN 17 mg/dl (7-17); CALCIUM 9.4 mg/dL (8.4-10.2); GFR NON-AFRICAN AMERICAN 53
[2018-12-10] MEDS: Insulin Regular 100 units/ml SC SCH ×4 (06:26→22:06)
--- NOTE | 2018-12-10 07:27 | CP.PCM.PN ---
<Elmira Russ - Last Filed: 12/10/18 09:50> Subjective - Date & Time of Evaluation Date of Evaluation: 12/10/18 Time of Evaluation: 07:25 - Subjective Subjective: No acute overnight events. Pt seen and examined by bedside this AM. Sleeping comfortably on BIPAP, o2 at 96-98% noted Cardiac cath tomorrow. Objective - Vital Signs/Intake and Output Vital Signs (last 24 hours): Temp Pulse Resp BP Pulse Ox 98.4 F 78 19 141/66 100 12/10/18 04:00 12/10/18 06:00 12/10/18 06:00 12/10/18 06:00 12/10/18 06:00 Intake and Output: 12/10/18 12/10/18 06:59 18:59 Intake Total 218 Output Total 450 Balance -232 - Medications Medications: Current Medications Acetaminophen (Tylenol 325mg Tab) 650 mg PO Q6 PRN PRN Reason: Pain, Mild (1-3) Acetaminophen (Tylenol 325mg Tab) 650 mg PO Q6 PRN PRN Reason: Fever >100.4 F Acetazolamide (Diamox 250 Mg Tab) 250 mg PO BID [facility] Last Admin: 12/09/18 16:34 Dose: 250 mg Albuterol/Ipratropium (Duoneb 3 Mg/0.5 Mg (3 Ml) Ud) 3 ml INH RQ4 [facility] Last Admin: 12/10/18 03:46 Dose: 3 ml Bumetanide (Bumex) 1 mg IVP DAILY [facility] Last Admin: 12/09/18 10:13 Dose: 1 mg Enoxaparin Sodium (Lovenox) 40 mg SC DAILY [facility]; Protocol Last Admin: 12/09/18 08:52 Dose: 40 mg Piperacillin Sod/Tazobactam (Sod 3.375 gm/ Sodium Chloride) 100 mls @ 100 mls/hr IVPB Q6 [facility]; Protocol Last Admin: 12/10/18 03:54 Dose: 100 mls/hr Insulin Detemir (Levemir) 10 units SC HS [facility] Last Admin: 12/09/18 22:08 Dose: 10 u Insulin Human Regular (Humulin R) 0 units SC ACCU-CHECK [facility]; Protocol Last Admin: 12/10/18 06:26 Dose: 2 u Losartan Potassium (Cozaar) 25 mg PO DAILY [facility] Last Admin: 12/09/18 08:52 Dose: 25 mg Metoprolol Succinate (Toprol Xl) 25 mg PO DAILY [facility] Last Admin: 12/09/18 08:54 Dose: 25 mg Potassium Chloride (Potassium Chloride Oral Soln) 40 meq PO BID [facility] Last Admin: 12/09/18 16:37 Dose: 40 meq Risperidone (Risperidone Odt 0.25mg) 0.25 mg PO HS [facility] Last Admin: 12/08/18 21:03 Dose: 0.25 mg Spironolactone (Aldactone) 12.5 mg PO DAILY [facility] Last Admin: 12/09/18 11:34 Dose: 12.5 mg - Labs Labs: 12/10/18 04:35 12/10/18 04:35 PT 13.7 Seconds (9.8-13.1) H 12/10/18 04:35 INR 1.2 12/10/18 04:35 APTT 35.2 Seconds (25.6-37.1) 12/10/18 04:35 - Constitutional Appears: No Acute Distress, Other (bipap on ) - Head Exam Head Exam: NORMAL INSPECTION - Eye Exam Eye Exam: Normal appearance - Respiratory Exam Respiratory Exam: Rales, NORMAL BREATHING PATTERN (course breath sounds b/l) - Cardiovascular Exam Cardiovascular Exam: REGULAR RHYTHM, +S1, +S2 - GI/Abdominal Exam GI & Abdominal Exam: Soft, Normal Bowel Sounds. absent: Tenderness - Extremities Exam Extremities Exam: Normal Inspection. absent: Calf Tenderness Assessment and Plan (1) Bacteremia Status: Resolved (2) Sepsis Status: Resolved (3) CHF (congestive heart failure) Status: Chronic (4) Respiratory failure Status: Acute (5) Anemia Status: Chronic (6) Pleural effusion Status: Acute (7) Hypercarbia Status: Acute - Assessment and Plan (Free Text) Assessment: Assessment/Plan: 83 YO female with PMHx of HTN, CHF (w/ pacemaker), DM, hypothyroidism, admitted due to recurrent hypercapneic respiratory failure. Patient brought to ED on 11/22/18 for [place] due to AMS, intubated and admitted to ICU. Successfully extubated on 12/03/18. Recurrent hypercapneic respiratory failure s/p intubation and on MV on 11/22/18, ext 12/03/18 -Persistent hypercapnia, worse this AM -will hold risperadone -pulmonary on board -c/w BIPAPA at night and O2 as needed -CXR 12/10; slightly improved pulmonary congestion, persistent lower alveolar infiltrates and pleural effusion Encephalopathy, AMS -Likely 2/2 to hypercapnia, respiratory failure -waxing and waning based on CO levels -Ct Head no acute findings -improving CHF, pacemaker, chronic -systolic dysfunction (one echo 10/27) -Cardiology on board; meds adjusted -Plan for cardiac cath in AM @[facility] Pleural Infiltrate/effusion -effusion 2/2 to CHF, on diuretic -CXR bilateral lower lobe, alveolar type infiltrate -c/w IV abx, ID on board Bacteremia, sepsis -resolved -Blood cx 11/22/18: Gram positive cocci in pairs -BCx 11/24 neg -s/p tx with IV abx, ID on board Anemia, Normocytic -likely acute on chronic -No acute source of GI bleed -stable DVT prophylx: Lovenox SC Cont to work with physical therapy to work on gait and strengthening <Nakul Zhang - Last Filed: 12/10/18 11:47> Objective - Vital Signs/Intake and Output Vital Signs (last 24 hours): Temp Pulse Resp BP Pulse Ox 98.1 F 74 24 113/59 L 100 12/10/18 08:18 12/10/18 11:37 12/10/18 10:00 12/10/18 10:00 12/10/18 10:00 Intake and Output: 12/09/18 12/10/18 23:59 11:59 Intake Total 904 214 Output Total 600 450 Balance 304 -236 - Medications Medications: Current Medications Acetaminophen (Tylenol 325mg Tab) 650 mg PO Q6 PRN PRN Reason: Pain, Mild (1-3) Acetaminophen (Tylenol 325mg Tab) 650 mg PO Q6 PRN PRN Reason: Fever >100.4 F Acetazolamide (Diamox 250 Mg Tab) 250 mg PO BID [facility] Last Admin: 12/10/18 09:13 Dose: Not Given Albuterol/Ipratropium (Duoneb 3 Mg/0.5 Mg (3 Ml) Ud) 3 ml INH RQ4 [facility] Last Admin: 12/10/18 11:36 Dose: 3 ml Bumetanide (Bumex) 1 mg IVP DAILY [facility] Last Admin: 12/10/18 09:10 Dose: 1 mg Enoxaparin Sodium (Lovenox) 40 mg SC DAILY [facility]; Protocol Last Admin: 12/10/18 09:13 Dose: 40 mg Piperacillin Sod/Tazobactam (Sod 3.375 gm/ Sodium Chloride) 100 mls @ 100 mls/hr IVPB Q6 [facility]; Protocol Last Admin: 12/10/18 09:16 Dose: 100 mls/hr Insulin Detemir (Levemir) 10 units SC [facility] Last Admin: 12/09/18 22:08 Dose: 10 u Insulin Human Regular (Humulin R) 0 units SC ACCU-CHECK [facility]; Protocol Last Admin: 12/10/18 06:26 Dose: 2 u Losartan Potassium (Cozaar) 25 mg PO DAILY [facility] Last Admin: 12/10/18 09:11 Dose: Not Given Metoprolol Succinate (Toprol Xl) 25 mg PO DAILY [facility] Last Admin: 12/10/18 09:13 Dose: Not Given Potassium Chloride (Potassium Chloride Oral Soln) 40 meq PO BID [facility] Last Admin: 12/10/18 09:13 Dose: Not Given Risperidone (Risperidone Odt 0.25mg) 0.25 mg PO [facility] Last Admin: 12/08/18 21:03 Dose: 0.25 mg Spironolactone (Aldactone) 12.5 mg PO DAILY [facility] Last Admin: 12/10/18 09:11 Dose: Not Given - Labs Labs: 12/10/18 04:35 12/10/18 04:35 PT 13.7 Seconds (9.8-13.1) H 12/10/18 04:35 INR 1.2 12/10/18 04:35 APTT 35.2 Seconds (25.6-37.1) 12/10/18 04:35 Assessment and Plan - Assessment and Plan (Free Text) Assessment: Patient was personally seen and examined by me in rounds with residents. Available labs and diagnostic data reviewed. Case, Patient's condition and management plan discussed with residents in rounds. Agree with resident's progress note. Plan: As ordered.
[2018-12-10] MEDS: Potassium Chloride 20 mEq/15 ml LIQ UD PO SCH ×2 (09:13→16:31)
[2018-12-10] MEDS: Enoxaparin 40 mg Syringe SC SCH (09:13)
[2018-12-10] MEDS: Metoprolol Succinate 25 mg XL Tab PO SCH (09:13)
--- NOTE | 2018-12-10 09:31 | RAD ---
Date of service: 12/10/2018 HISTORY: pneumonia COMPARISON: No prior. FINDINGS: No change right sided PICC line with tip in the SVC LUNGS: Slightly improved pulmonary venous congestive changes. Persistent bilateral lower lobe alveolar-type infiltrates and bilateral effusions. PLEURA: No significant pleural effusion identified, no pneumothorax apparent. CARDIOVASCULAR: Mild aortic atherosclerotic calcification present. Cardiac silhouette unchanged. No change multi lead pacemaker/defibrillator OSSEOUS STRUCTURES: No significant abnormalities. VISUALIZED UPPER ABDOMEN: Normal. OTHER FINDINGS: None. IMPRESSION: Slightly improved pulmonary venous congestive changes. Persistent bilateral lower lobe alveolar-type infiltrates and bilateral effusions.
--- NOTE | 2018-12-10 10:30 | CP.CCUPN ---
CCU Subjective - Physician Review Subjective (Free Text): Opens eyes to sternal rub, but no sustained wakefulness noted. otherwise lethargic; remains on BiPAP. Afebrile, no fever spikes overnight, SBP 110s; HR 80s paced, fluid balance positive 0.3L. ROS: No other pertinent negs or positives on 10+ system review. PMSFH: All other Nursing and physician documentation reviewed to date; no new pertinent info noted relevant to current medical problems. EXAM- HEENT: no icterus, no gaze preference NECK: No JVD visible given short neck and overall obesity, supple, carotids equal upstroke bilat/no bruit CHEST: decreased BS at the bases, no wheezes audible bilaterally. HEART: regular, distant, S1S2, no rubs or murmurs noted ABD: soft, obese, nontender, no guarding, no organomegaly, BS hypoactive. EXT: +1 leg edema- SCDs on bilat, no calf tenderness or palpable cords, distal pulses intact and symmetrical. RUE single lumen PICC. NEURO: withdraws to pain, + tone in all extremities. SKIN: no rashes, warm and dry LABS: WBC= 4.4 HGB= 10.4 PLTs= 205K Na= 150 K= 3.6 CL= 104 HCO3=25 BUN/Cr= 17/1.0 BS= 132 INR =1.2 7.39/59/62 CXR (my interp): bibasilar interstitial changes, small bilat effusions IMPRESSION / MAJOR PROBLEMS NOW: 1. Acute Hypercapneic Resp Failure, 2 bilat Pneumonia / COPD Exacerbation 2. Metabolic Encephalopathy with AMS 2 #1 3. h/o CHF with DDysfx 4. h/o DM II PLAN: 1. No sedatives, continue holding Risperdal. 2. Hold Bumex today, becoming hypernatremic; if worsens, will need hypotonic fluids, too lethargic for PO free water intake. 3. Aware of cardio plans for cardiac cath. 4. Could stop Diamox, serum HCO3 down to 25. 5. No Advance Directives; Pulm discussed clinical status with son, all aggressive measures to be instituted. Critical Care Progress Note - Nutrition Nutrition: Nutrition Category Date Time Status Dysphagia/Modified Consistency Diet [DIET] Diets 12/07/18 Dinner Active
--- NOTE | 2018-12-10 17:40 | CP.PCM.PN ---
<Pierce Yo - Last Filed: 12/10/18 22:20> Subjective - Date & Time of Evaluation Date of Evaluation: 12/10/18 Time of Evaluation: 17:40 - Subjective Subjective: Pierce Yo DO PGY1 - Internal Medicine Clinical Medical Transcriptionist - Cardiology Note for Dr. Kim Patient was seen and examined at bedside this afternoon Patient evaluated w/ daughter at bedside As per nursing report, patient again lethargic throughout the day today. Patient on/off bipap today. Objective - Vital Signs/Intake and Output Vital Signs (last 24 hours): Temp Pulse Resp BP Pulse Ox 96.4 F L 81 25 H 126/49 L 100 12/10/18 16:00 12/10/18 16:00 12/10/18 16:00 12/10/18 16:00 12/10/18 16:00 Intake and Output: 12/10/18 12/10/18 06:59 18:59 Intake Total 218 100 Output Total 450 Balance -232 100 - Medications Medications: Current Medications Acetaminophen (Tylenol 325mg Tab) 650 mg PO Q6 PRN PRN Reason: Pain, Mild (1-3) Acetaminophen (Tylenol 325mg Tab) 650 mg PO Q6 PRN PRN Reason: Fever >100.4 F Acetazolamide (Diamox 250 Mg Tab) 250 mg PO BID [facility] Last Admin: 12/10/18 16:31 Dose: Not Given Albuterol/Ipratropium (Duoneb 3 Mg/0.5 Mg (3 Ml) Ud) 3 ml INH RQ4 [facility] Last Admin: 12/10/18 15:10 Dose: 3 ml Bumetanide (Bumex) 1 mg IVP DAILY [facility] Last Admin: 12/10/18 09:10 Dose: 1 mg Enoxaparin Sodium (Lovenox) 40 mg SC DAILY [facility]; Protocol Last Admin: 12/10/18 09:13 Dose: 40 mg Piperacillin Sod/Tazobactam (Sod 3.375 gm/ Sodium Chloride) 100 mls @ 100 mls/hr IVPB Q6 [facility]; Protocol Last Admin: 12/10/18 16:59 Dose: 100 mls/hr Insulin Detemir (Levemir) 10 units SC [facility] Last Admin: 12/09/18 22:08 Dose: 10 u Insulin Human Regular (Humulin R) 0 units SC ACCU-CHECK [facility]; Protocol Last Admin: 12/10/18 16:31 Dose: Not Given Losartan Potassium (Cozaar) 25 mg PO DAILY [facility] Last Admin: 12/10/18 09:11 Dose: Not Given Metoprolol Succinate (Toprol Xl) 25 mg PO DAILY [facility] Last Admin: 12/10/18 09:13 Dose: Not Given Potassium Chloride (Potassium Chloride Oral Soln) 40 meq PO BID [facility] Last Admin: 12/10/18 16:31 Dose: Not Given Risperidone (Risperidone Odt 0.25mg) 0.25 mg PO HS [facility] Last Admin: 12/08/18 21:03 Dose: 0.25 mg Spironolactone (Aldactone) 12.5 mg PO DAILY [facility] Last Admin: 12/10/18 09:11 Dose: Not Given - Labs Labs: 12/10/18 04:35 12/10/18 04:35 PT 13.7 Seconds (9.8-13.1) H 12/10/18 04:35 INR 1.2 12/10/18 04:35 APTT 35.2 Seconds (25.6-37.1) 12/10/18 04:35 - Constitutional Appears: Non-Toxic, NAD, Does not show overt lethargy on exam - Eye Exam Eye Exam: PERRL. absent: Scleral icterus - ENT Exam Additional comments: dry mucous membranes - Respiratory Exam Respiratory Exam: Clear to Ausculation Bilateral, NORMAL BREATHING PATTERN - Cardiovascular Exam Cardiovascular Exam: RRR, +S1, +S2. absent: Murmur - GI/Abdominal Exam GI & Abdominal Exam: Soft - Extremities Exam Extremities Exam: Pedal Edema Additional comments: Upper extremity edematous ; Lower extremities warm w/ good cap refill bilaterally - Neurological Exam Additional comments: Alert, Awake, Responsive, Follows Commands - Skin Skin Exam: Dry, Normal Color, Warm Assessment and Plan (1) Acute respiratory failure with hypoxia and hypercarbia Status: Acute (2) Diabetes mellitus type 2 in obese Status: Acute (3) Hypertension Status: Acute - Assessment and Plan (Free Text) Plan: Recurrent hypercapnic respiratory failure etiology unknown. BNP significantly improved; If patient is less lethargic tomorrow - will take for cardiac cath Consent obtained from daughter this evening. Continue Start Bumex 1 IVP Daily Cozaar 25 QD Aldactone 12.5 QD Toprol XL 25 QD Further reccs per Dr. Kim to follow <Douglas Kim - Last Filed: 12/14/18 07:04> Objective - Vital Signs/Intake and Output Vital Signs (last 24 hours): Temp Pulse Resp BP Pulse Ox 97.8 F 75 13 122/56 L 97 12/14/18 00:00 12/14/18 02:00 12/14/18 02:00 12/14/18 02:00 12/14/18 02:00 Intake and Output: 12/14/18 12/14/18 06:59 18:59 Intake Total 0 Balance 0 - Medications Medications: Current Medications Acetaminophen (Tylenol 325mg Tab) 650 mg PO Q6 PRN PRN Reason: Pain, Mild (1-3) Acetaminophen (Tylenol 325mg Tab) 650 mg PO Q6 PRN PRN Reason: Fever >100.4 F Acetazolamide (Diamox 250 Mg Tab) 250 mg PO BID [facility] Last Admin: 12/13/18 16:40 Dose: 250 mg Albuterol/Ipratropium (Duoneb 3 Mg/0.5 Mg (3 Ml) Ud) 3 ml INH RQ4 [facility] Last Admin: 12/14/18 03:29 Dose: 3 ml Bumetanide (Bumex) 1 mg IVP DAILY [facility] Last Admin: 12/13/18 09:47 Dose: 1 mg Enoxaparin Sodium (Lovenox) 40 mg SC DAILY [facility]; Protocol Last Admin: 12/13/18 09:46 Dose: 40 mg Insulin Detemir (Levemir) 10 units SC [facility] Last Admin: 12/13/18 22:03 Dose: 10 units Insulin Human Regular (Humulin R) 0 units SC ACCU-CHECK [facility]; Protocol Last Admin: 12/13/18 22:30 Dose: Not Given Losartan Potassium (Cozaar) 25 mg PO DAILY [facility] Last Admin: 12/13/18 09:46 Dose: 25 mg Metoprolol Succinate (Toprol Xl) 25 mg PO DAILY [facility] Last Admin: 12/13/18 09:45 Dose: 25 mg Potassium Chloride (Potassium Chloride Oral Soln) 40 meq PO BID [facility] Last Admin: 12/13/18 16:50 Dose: 40 meq Risperidone (Risperidone Odt 0.25mg) 0.25 mg PO [facility] Last Admin: 12/08/18 21:03 Dose: 0.25 mg Spironolactone (Aldactone) 12.5 mg PO DAILY [facility] Last Admin: 12/13/18 09:45 Dose: 12.5 mg - Labs Labs: 12/14/18 04:30 12/14/18 04:30 PT 13.7 Seconds (9.8-13.1) H 12/10/18 04:35 INR 1.2 12/10/18 04:35 APTT 35.2 Seconds (25.6-37.1) 12/10/18 04:35 Attending/Attestation - Attestation I have personally seen and examined this patient.: Yes I have fully participated in the care of the patient.: Yes I have reviewed all pertinent clinical information, including history, physical exam and plan: Yes
[2018-12-10] MEDS: Insulin Detemir 100 Units/ml Inj SC SCH (22:20)
[2018-12-11] MEDS: Piperacillin/Tazobact 3.375 GM in Sodium Chloride 0.9% 100 ML IVPB SCH ×2 (04:13→09:48)
[2018-12-11] MEDS: Albuterol-Ipratrop 3 mg / 0.5 (3 ml) UD INH SCH ×6 (04:16→23:20)
[2018-12-11 04:24] LABS: ABG ALLEN TEST YES; ARTERIAL BLOOD GAS HEMOGLOBIN 10.6 g/dL (11.7-17.4); ARTERIAL BLOOD GAS O2 CAPACITY 14.7 mL/dL (16-24); ARTERIAL BLOOD GAS O2 CONTENT 14.7 ML/dL (15-23); ARTERIAL BLOOD GAS O2 SAT 100.2 % (95-98); ARTERIAL BLOOD GAS PCO2 69 mm/Hg (35-45); ARTERIAL BLOOD GAS PH 7.35 (7.35-7.45); ARTERIAL BLOOD GAS PO2 126 mm/Hg (80-100); ARTERIAL BLOOD GAS TCO2 40.2 mmol/L (22-28)
[2018-12-11 05:31] LABS: BASO % 0.5 % (0.0-2.0); EOS # 0.3 K/uL (0.0-0.7); EOS % 6.9 % (0.0-4.0); HEMOGLOBIN 10.4 g/dL (12.0-16.0); LYMPH # 0.8 K/uL (1.0-4.3); LYMPH % 18.3 % (20.0-40.0); MEAN CORPUSCULAR HEMOGLOBIN 27.6 pg (27.0-31.0); MEAN CORPUSCULAR HGB CONC 31.7 g/dL (33.0-37.0); MONO # 0.3 K/uL (0.0-0.8); MONO % 6.9 % (0.0-10.0); NEUT # 2.8 K/uL (1.8-7.0); NEUT % 67.4 % (50.0-75.0); NRBC % 0.1 % (0.0-0.0); RBC 3.77 Mil/uL (3.80-5.20); RED CELL DISTRIBUTION WIDTH 21.1 % (11.5-14.5); WHITE BLOOD COUNT 4.2 K/uL (4.8-10.8)
[2018-12-11 05:43] LABS: ALBUMIN 3.2 g/dL (3.5-5.0); ALT/SGPT 36 U/L (9-52); AST/SGOT 25 U/L (14-36); BLOOD UREA NITROGEN 19 mg/dl (7-17); CALCIUM 9.5 mg/dL (8.4-10.2); GFR NON-AFRICAN AMERICAN 53
[2018-12-11] MEDS: Insulin Regular 100 units/ml SC SCH ×3 (06:28→18:29)
[2018-12-11] MEDS ORDERED: Potassium Chloride 20 mEq ER Tab PO ONE (06:32)
[2018-12-11] MEDS: Enoxaparin 40 mg Syringe SC SCH (08:44)
[2018-12-11] MEDS: Potassium Chloride 20 mEq/15 ml LIQ UD PO SCH ×2 (08:54→18:33)
[2018-12-11] MEDS: Metoprolol Succinate 25 mg XL Tab PO SCH (09:50)
--- NOTE | 2018-12-11 12:37 | CP.PCM.PN ---
Subjective - Date & Time of Evaluation Date of Evaluation: 12/11/18 Time of Evaluation: 08:00 - Subjective Subjective: afeb on zosyn to cont rx for HCAP Objective - Vital Signs/Intake and Output Vital Signs (last 24 hours): Temp Pulse Resp BP Pulse Ox 98.1 F 86 20 125/55 L 96 12/11/18 12:00 12/11/18 12:00 12/11/18 12:00 12/11/18 12:00 12/11/18 12:00 Intake and Output: 12/11/18 12/11/18 06:59 18:59 Intake Total 206 250 Output Total 400 Balance -194 250 - Medications Medications: Current Medications Acetaminophen (Tylenol 325mg Tab) 650 mg PO Q6 PRN PRN Reason: Pain, Mild (1-3) Acetaminophen (Tylenol 325mg Tab) 650 mg PO Q6 PRN PRN Reason: Fever >100.4 F Acetazolamide (Diamox 250 Mg Tab) 250 mg PO BID [facility] Last Admin: 12/11/18 08:54 Dose: 250 mg Albuterol/Ipratropium (Duoneb 3 Mg/0.5 Mg (3 Ml) Ud) 3 ml INH RQ4 [facility] Last Admin: 12/11/18 11:14 Dose: 3 ml Bumetanide (Bumex) 1 mg IVP DAILY [facility] Last Admin: 12/11/18 08:44 Dose: 1 mg Enoxaparin Sodium (Lovenox) 40 mg SC DAILY [facility]; Protocol Last Admin: 12/11/18 08:44 Dose: 40 mg Dextrose (Dextrose 5% In Water 1000 Ml) 1,000 mls @ 50 mls/hr IV .Q20H [facility] Stop: 12/12/18 07:01 Last Admin: 12/11/18 08:44 Dose: 50 mls/hr Insulin Detemir (Levemir) 10 units SC [facility] Last Admin: 12/10/18 22:20 Dose: Not Given Insulin Human Regular (Humulin R) 0 units SC ACCU-CHECK [facility]; Protocol Last Admin: 12/11/18 06:28 Dose: Not Given Losartan Potassium (Cozaar) 25 mg PO DAILY [facility] Last Admin: 12/10/18 09:11 Dose: Not Given Metoprolol Succinate (Toprol Xl) 25 mg PO DAILY [facility] Last Admin: 12/11/18 09:50 Dose: 25 mg Potassium Chloride (Potassium Chloride Oral Soln) 40 meq PO BID [facility] Last Admin: 12/11/18 08:54 Dose: 40 meq Risperidone (Risperidone Odt 0.25mg) 0.25 mg PO HS [facility] Last Admin: 12/08/18 21:03 Dose: 0.25 mg Spironolactone (Aldactone) 12.5 mg PO DAILY [facility] Last Admin: 12/11/18 08:52 Dose: 12.5 mg - Labs Labs: 12/11/18 04:30 12/11/18 04:30 PT 13.7 Seconds (9.8-13.1) H 12/10/18 04:35 INR 1.2 12/10/18 04:35 APTT 35.2 Seconds (25.6-37.1) 12/10/18 04:35 - Constitutional Appears: Confused, Chronically Ill - Head Exam Head Exam: NORMOCEPHALIC - Eye Exam Eye Exam: PERRL - ENT Exam ENT Exam: Mucous Membranes Dry, Normal Oropharynx - Neck Exam Neck Exam: absent: Lymphadenopathy - Respiratory Exam Respiratory Exam: Decreased Breath Sounds, Rhonchi - Cardiovascular Exam Cardiovascular Exam: REGULAR RHYTHM - GI/Abdominal Exam GI & Abdominal Exam: Distended, Soft - Rectal Exam Rectal Exam: Deferred - Exam Exam: NORMAL INSPECTION - Extremities Exam Extremities Exam: Pedal Edema - Back Exam Back Exam: absent: CVA tenderness (L), CVA tenderness (R) Assessment and Plan (1) Acute respiratory failure with hypoxia and hypercarbia Status: Acute (2) Bacteremia Status: Resolved (3) Diabetes mellitus type 2 in obese Status: Acute (4) Pleural effusion Status: Acute (5) Respiratory failure Status: Acute - Assessment and Plan (Free Text) Assessment: will renew Zosyn for now
--- NOTE | 2018-12-11 12:58 | CP.PCM.PN ---
Subjective - Date & Time of Evaluation Date of Evaluation: 12/11/18 Time of Evaluation: 12:58 - Subjective Subjective: LETHARGIC BUT EASILY AROUSABLE LUNGS-BASAL DULLNESS AND RALES HEART-S1S2 ABD-BENIGN IMP-HYPERCAPNEIC RESP FAILURE COPD EXAC CHF PLAN-CONTINUE CURRENT RX Objective - Vital Signs/Intake and Output Vital Signs (last 24 hours): Temp Pulse Resp BP Pulse Ox 98.1 F 86 20 125/55 L 96 12/11/18 12:00 12/11/18 12:00 12/11/18 12:00 12/11/18 12:00 12/11/18 12:00 Intake and Output: 12/11/18 12/11/18 06:59 18:59 Intake Total 206 250 Output Total 400 Balance -194 250 - Medications Medications: Current Medications Acetaminophen (Tylenol 325mg Tab) 650 mg PO Q6 PRN PRN Reason: Pain, Mild (1-3) Acetaminophen (Tylenol 325mg Tab) 650 mg PO Q6 PRN PRN Reason: Fever >100.4 F Acetazolamide (Diamox 250 Mg Tab) 250 mg PO BID [facility] Last Admin: 12/11/18 08:54 Dose: 250 mg Albuterol/Ipratropium (Duoneb 3 Mg/0.5 Mg (3 Ml) Ud) 3 ml INH RQ4 [facility] Last Admin: 12/11/18 11:14 Dose: 3 ml Bumetanide (Bumex) 1 mg IVP DAILY [facility] Last Admin: 12/11/18 08:44 Dose: 1 mg Enoxaparin Sodium (Lovenox) 40 mg SC DAILY [facility]; Protocol Last Admin: 12/11/18 08:44 Dose: 40 mg Dextrose (Dextrose 5% In Water 1000 Ml) 1,000 mls @ 50 mls/hr IV .Q20H [facility] Stop: 12/12/18 07:01 Last Admin: 12/11/18 08:44 Dose: 50 mls/hr Insulin Detemir (Levemir) 10 units SC [facility] Last Admin: 12/10/18 22:20 Dose: Not Given Insulin Human Regular (Humulin R) 0 units SC ACCU-CHECK [facility]; Protocol Last Admin: 12/11/18 06:28 Dose: Not Given Losartan Potassium (Cozaar) 25 mg PO DAILY [facility] Last Admin: 12/10/18 09:11 Dose: Not Given Metoprolol Succinate (Toprol Xl) 25 mg PO DAILY [facility] Last Admin: 12/11/18 09:50 Dose: 25 mg Potassium Chloride (Potassium Chloride Oral Soln) 40 meq PO BID [facility] Last Admin: 12/11/18 08:54 Dose: 40 meq Risperidone (Risperidone Odt 0.25mg) 0.25 mg PO HS [facility] Last Admin: 12/08/18 21:03 Dose: 0.25 mg Spironolactone (Aldactone) 12.5 mg PO DAILY [facility] Last Admin: 12/11/18 08:52 Dose: 12.5 mg - Labs Labs: 12/11/18 04:30 12/11/18 04:30 PT 13.7 Seconds (9.8-13.1) H 12/10/18 04:35 INR 1.2 12/10/18 04:35 APTT 35.2 Seconds (25.6-37.1) 12/10/18 04:35
--- NOTE | 2018-12-11 13:01 | CP.PCM.PN ---
<Nelli Yo - Last Filed: 12/11/18 14:00> Subjective - Date & Time of Evaluation Date of Evaluation: 12/11/18 Time of Evaluation: 07:00 - Subjective Subjective: Patient seen and examined this morning at bedside, NAD. Patient is alert and awake this morning, following commands, comfortably breathing on NC. Patient is tolerating PO intake. Objective - Vital Signs/Intake and Output Vital Signs (last 24 hours): Temp Pulse Resp BP Pulse Ox 98.1 F 86 20 125/55 L 96 12/11/18 12:00 12/11/18 12:00 12/11/18 12:00 12/11/18 12:00 12/11/18 12:00 Intake and Output: 12/11/18 12/11/18 06:59 18:59 Intake Total 206 250 Output Total 400 Balance -194 250 - Medications Medications: Current Medications Acetaminophen (Tylenol 325mg Tab) 650 mg PO Q6 PRN PRN Reason: Pain, Mild (1-3) Acetaminophen (Tylenol 325mg Tab) 650 mg PO Q6 PRN PRN Reason: Fever >100.4 F Acetazolamide (Diamox 250 Mg Tab) 250 mg PO BID [facility] Last Admin: 12/11/18 08:54 Dose: 250 mg Albuterol/Ipratropium (Duoneb 3 Mg/0.5 Mg (3 Ml) Ud) 3 ml INH RQ4 [facility] Last Admin: 12/11/18 11:14 Dose: 3 ml Bumetanide (Bumex) 1 mg IVP DAILY [facility] Last Admin: 12/11/18 08:44 Dose: 1 mg Enoxaparin Sodium (Lovenox) 40 mg SC DAILY [facility]; Protocol Last Admin: 12/11/18 08:44 Dose: 40 mg Dextrose (Dextrose 5% In Water 1000 Ml) 1,000 mls @ 50 mls/hr IV .Q20H [facility] Stop: 12/12/18 07:01 Last Admin: 12/11/18 08:44 Dose: 50 mls/hr Insulin Detemir (Levemir) 10 units SC [facility] Last Admin: 12/10/18 22:20 Dose: Not Given Insulin Human Regular (Humulin R) 0 units SC [facility]; Protocol Last Admin: 12/11/18 06:28 Dose: Not Given Losartan Potassium (Cozaar) 25 mg PO DAILY [facility] Last Admin: 12/10/18 09:11 Dose: Not Given Metoprolol Succinate (Toprol Xl) 25 mg PO DAILY [facility] Last Admin: 12/11/18 09:50 Dose: 25 mg Potassium Chloride (Potassium Chloride Oral Soln) 40 meq PO BID [facility] Last Admin: 12/11/18 08:54 Dose: 40 meq Risperidone (Risperidone Odt 0.25mg) 0.25 mg PO HS [facility] Last Admin: 12/08/18 21:03 Dose: 0.25 mg Spironolactone (Aldactone) 12.5 mg PO DAILY [facility] Last Admin: 12/11/18 08:52 Dose: 12.5 mg - Labs Labs: 12/11/18 04:30 12/11/18 04:30 PT 13.7 Seconds (9.8-13.1) H 12/10/18 04:35 INR 1.2 12/10/18 04:35 APTT 35.2 Seconds (25.6-37.1) 12/10/18 04:35 - Constitutional Appears: No Acute Distress (on NC ) - Head Exam Head Exam: NORMAL INSPECTION - Eye Exam Eye Exam: Normal appearance Pupil Exam: NORMAL ACCOMODATION - ENT Exam ENT Exam: Mucous Membranes Moist - Neck Exam Neck Exam: Normal Inspection - Respiratory Exam Respiratory Exam: NORMAL BREATHING PATTERN (Course breath sounds b/l ). absent: Accessory Muscle Use, Chest Wall Tenderness, Decreased Breath Sounds - Cardiovascular Exam Cardiovascular Exam: REGULAR RHYTHM, +S1, +S2 - GI/Abdominal Exam GI & Abdominal Exam: Soft, Normal Bowel Sounds. absent: Tenderness - Back Exam Back Exam: NORMAL INSPECTION - Neurological Exam Neurological Exam: Alert, Awake - Psychiatric Exam Psychiatric exam: Normal Affect - Skin Skin Exam: Normal Color Assessment and Plan - Assessment and Plan (Free Text) Assessment: A/P: 83 y/o female with PMHx of HTN, CHF (w/ pacemaker), DM, hypothyroidism, admitted due to recurrent hypercapneic respiratory failure. Patient brought to ED on 11/22/18 for LATONIA due to AMS, intubated and admitted to ICU. Successfully extubated on 12/03/18. Recurrent hypercapneic respiratory failure s/p intubation and on MV on 11/22/18, ext 12/03/18 -Persistent hypercapnia, worse this AM -hold risperadone -pulmonary on board -c/w BIPAPA at night and O2 as needed -CXR ; slightly improved pulmonary congestion, persistent lower alveolar infiltrates and pleural effusion Encephalopathy, AMS -Likely 2/2 to hypercapnia, respiratory failure -waxing and waning based on CO levels -Ct Head no acute findings -improving CHF, pacemaker, chronic -systolic dysfunction (one echo 10/27) -Cardiology on board; meds adjusted -Possible cardiac Cath after patient is mentally stable -Continue Bumex, Cozaar, Aldectome and Toprol as per Vascular Pleural Infiltrate/effusion/HCAP -effusion 2/2 to CHF, on diuretic -CXR bilateral lower lobe, alveolar type infiltrate -c/w IV abx, ID on board Bacteremia, sepsis -resolved -Blood cx 11/22/18: Gram positive cocci in pairs -BCx 11/24 neg -s/p tx with IV abx, ID on board Anemia, Normocytic -likely acute on chronic -No acute source of GI bleed -stable DVT prophylx: Lovenox SC Cont to work with physical therapy to work on gait and strengthening <Nakul Zhang - Last Filed: 12/12/18 09:05> Objective - Vital Signs/Intake and Output Vital Signs (last 24 hours): Temp Pulse Resp BP Pulse Ox 98.4 F 77 16 123/61 99 12/12/18 08:00 12/12/18 08:36 12/12/18 08:00 12/12/18 08:36 12/12/18 08:00 Intake and Output: 12/11/18 12/12/18 23:59 11:59 Intake Total 900 1200 Output Total 1100 Balance 900 100 - Medications Medications: Current Medications Acetaminophen (Tylenol 325mg Tab) 650 mg PO Q6 PRN PRN Reason: Pain, Mild (1-3) Acetaminophen (Tylenol 325mg Tab) 650 mg PO Q6 PRN PRN Reason: Fever >100.4 F Acetazolamide (Diamox 250 Mg Tab) 250 mg PO BID [facility] Last Admin: 12/12/18 08:35 Dose: 250 mg Albuterol/Ipratropium (Duoneb 3 Mg/0.5 Mg (3 Ml) Ud) 3 ml INH RQ4 [facility] Last Admin: 12/12/18 07:51 Dose: 3 ml Bumetanide (Bumex) 1 mg IVP DAILY [facility] Last Admin: 12/12/18 08:33 Dose: 1 mg Enoxaparin Sodium (Lovenox) 40 mg SC DAILY [facility]; Protocol Last Admin: 12/12/18 08:35 Dose: 40 mg Insulin Detemir (Levemir) 10 units SC [facility] Last Admin: 12/11/18 23:00 Dose: 10 units Insulin Human Regular (Humulin R) 0 units SC ACCU-CHECK [facility]; Protocol Last Admin: 12/12/18 06:40 Dose: Not Given Losartan Potassium (Cozaar) 25 mg PO DAILY [facility] Last Admin: 12/12/18 08:34 Dose: 25 mg Metoprolol Succinate (Toprol Xl) 25 mg PO DAILY [facility] Last Admin: 12/12/18 08:36 Dose: 25 mg Potassium Chloride (Potassium Chloride Oral Soln) 40 meq PO BID [facility] Last Admin: 12/12/18 08:38 Dose: 40 meq Risperidone (Risperidone Odt 0.25mg) 0.25 mg PO HS [facility] Last Admin: 12/08/18 21:03 Dose: 0.25 mg Spironolactone (Aldactone) 12.5 mg PO DAILY [facility] Last Admin: 12/12/18 08:31 Dose: 12.5 mg - Labs Labs: 12/12/18 05:30 12/12/18 05:30 PT 13.7 Seconds (9.8-13.1) H 12/10/18 04:35 INR 1.2 12/10/18 04:35 APTT 35.2 Seconds (25.6-37.1) 12/10/18 04:35 Assessment and Plan - Assessment and Plan (Free Text) Assessment: Patient was personally seen and examined by me in rounds with residents. Available labs and diagnostic data reviewed. Case, Patient's condition and management plan discussed with residents in rounds. Agree with resident's progress note. Plan: As ordered.
--- NOTE | 2018-12-11 14:13 | CP.CCUPN ---
CCU Subjective - Physician Review Subjective (Free Text): Most awake today, off BiPAP and conversant, sustained wakefulness noted over the past 3hours, no distress. Displayed much hunger for breakfast. Afebrile, no fever spikes overnight, SBP 110-120s; HR 80s paced, fluid balance negative 0.54L. ROS: No other pertinent negs or positives on 10+ system review. PMSFH: All other Nursing and physician documentation reviewed to date; no new pertinent info noted relevant to current medical problems. EXAM- HEENT: no icterus, no gaze preference NECK: No JVD visible given short neck and overall obesity, supple, carotids equal upstroke bilat/no bruit CHEST: decreased BS at the bases, no wheezes audible bilaterally. HEART: regular, distant, S1S2, no rubs or murmurs noted ABD: soft, obese, nontender, no guarding, no organomegaly, BS hypoactive. EXT: +1 leg edema- SCDs on bilat, no calf tenderness or palpable cords, distal pulses intact and symmetrical. RUE single lumen PICC. NEURO: withdraws to pain, + tone in all extremities. SKIN: no rashes, warm and dry LABS: WBC= 4.2 HGB= 10.4 PLTs= 196K 7.35/69/126 Na= 151 K= 3.4 CL= 104 HCO3=38 BUN/Cr= 19/1.0 BS= 124 PCT normal on Nov 29. IMPRESSION / MAJOR PROBLEMS NOW: 1. Acute Hypercapneic Resp Failure, 2 bilat Pneumonia / COPD Exacerbation 2. Metabolic Encephalopathy with AMS 2 #1 3. h/o CHF with DDysfx 4. h/o DM II PLAN: 1. No sedatives, continue holding Risperdal. 2. Would hold Bumex, BNP only 1470 yesterday, and hypernatremia worse. 3. Cardio contemplating cardiac cath. 4. No Advance Directives present; Pulm discussed clinical status with son and daughter, all aggressive measures to be instituted.
--- NOTE | 2018-12-11 19:55 | CP.PCM.PN ---
<Pierce Yo - Last Filed: 12/11/18 19:50> Subjective - Date & Time of Evaluation Date of Evaluation: 12/11/18 Time of Evaluation: 19:50 - Subjective Subjective: Pierce Yo DO PGY1 - Internal Medicine [employer] - Cardiology Note for Dr. Kim Seen and evaluated at bedside this morning; patient is awake however lethargic. Denies chest pain, shortness of breath, palpitations. Objective - Vital Signs/Intake and Output Vital Signs (last 24 hours): Temp Pulse Resp BP Pulse Ox 98.5 F 81 12 131/50 L 97 12/11/18 16:00 12/11/18 18:00 12/11/18 18:00 12/11/18 18:00 12/11/18 18:00 Intake and Output: 12/11/18 12/12/18 18:59 06:59 Intake Total 550 Balance 550 - Medications Medications: Current Medications Acetaminophen (Tylenol 325mg Tab) 650 mg PO Q6 PRN PRN Reason: Pain, Mild (1-3) Acetaminophen (Tylenol 325mg Tab) 650 mg PO Q6 PRN PRN Reason: Fever >100.4 F Acetazolamide (Diamox 250 Mg Tab) 250 mg PO BID [facility] Last Admin: 12/11/18 18:32 Dose: 250 mg Albuterol/Ipratropium (Duoneb 3 Mg/0.5 Mg (3 Ml) Ud) 3 ml INH RQ4 [facility] Last Admin: 12/11/18 19:38 Dose: 3 ml Bumetanide (Bumex) 1 mg IVP DAILY [facility] Last Admin: 12/11/18 08:44 Dose: 1 mg Enoxaparin Sodium (Lovenox) 40 mg SC DAILY [facility]; Protocol Last Admin: 12/11/18 08:44 Dose: 40 mg Dextrose (Dextrose 5% In Water 1000 Ml) 1,000 mls @ 50 mls/hr IV .Q20H [facility] Stop: 12/12/18 07:01 Last Admin: 12/11/18 08:44 Dose: 50 mls/hr Insulin Detemir (Levemir) 10 units SC [facility] Last Admin: 12/10/18 22:20 Dose: Not Given Insulin Human Regular (Humulin R) 0 units SC [facility]; Protocol Last Admin: 12/11/18 18:29 Dose: Not Given Losartan Potassium (Cozaar) 25 mg PO DAILY [facility] Last Admin: 12/11/18 13:00 Dose: 25 mg Metoprolol Succinate (Toprol Xl) 25 mg PO DAILY [facility] Last Admin: 12/11/18 09:50 Dose: 25 mg Potassium Chloride (Potassium Chloride Oral Soln) 40 meq PO BID [facility] Last Admin: 12/11/18 18:33 Dose: 40 meq Risperidone (Risperidone Odt 0.25mg) 0.25 mg PO HS [facility] Last Admin: 12/08/18 21:03 Dose: 0.25 mg Spironolactone (Aldactone) 12.5 mg PO DAILY [facility] Last Admin: 12/11/18 08:52 Dose: 12.5 mg - Labs Labs: 12/11/18 04:30 12/11/18 04:30 PT 13.7 Seconds (9.8-13.1) H 12/10/18 04:35 INR 1.2 12/10/18 04:35 APTT 35.2 Seconds (25.6-37.1) 12/10/18 04:35 - Constitutional Appears: Non-Toxic, NAD, Does not show overt lethargy on exam - Eye Exam Eye Exam: PERRL. absent: Scleral icterus - ENT Exam Additional comments: dry mucous membranes - Respiratory Exam Respiratory Exam: Clear to Ausculation Bilateral, NORMAL BREATHING PATTERN - Cardiovascular Exam Cardiovascular Exam: RRR, +S1, +S2. absent: Murmur - GI/Abdominal Exam GI & Abdominal Exam: Soft - Extremities Exam Extremities Exam: Pedal Edema Additional comments: Upper extremity edematous ; Lower extremities warm w/ good cap refill bilaterally - Neurological Exam Additional comments: Alert, Awake, Responsive, Follows Commands - Skin Skin Exam: Dry, Normal Color, Warm Assessment and Plan (1) Acute respiratory failure with hypoxia and hypercarbia Status: Acute (2) Diabetes mellitus type 2 in obese Status: Acute (3) Hypertension Status: Acute - Assessment and Plan (Free Text) Plan: Recurrent hypercapnic respiratory failure etiology unknown. BNP continues to improve Patient is still lethargic; will plan for cath at [facility] on friday. Continue Start Bumex 1 IVP Daily Cozaar 25 QD Aldactone 12.5 QD Toprol XL 25 QD Further reccs per Dr. Kim to follow <Douglas Kim - Last Filed: 12/14/18 06:41> Objective - Vital Signs/Intake and Output Vital Signs (last 24 hours): Temp Pulse Resp BP Pulse Ox 97.8 F 75 13 122/56 L 97 12/14/18 00:00 12/14/18 02:00 12/14/18 02:00 12/14/18 02:00 12/14/18 02:00 Intake and Output: 12/13/18 12/14/18 18:59 06:59 Intake Total 460 0 Output Total 725 Balance -265 0 - Medications Medications: Current Medications Acetaminophen (Tylenol 325mg Tab) 650 mg PO Q6 PRN PRN Reason: Pain, Mild (1-3) Acetaminophen (Tylenol 325mg Tab) 650 mg PO Q6 PRN PRN Reason: Fever >100.4 F Acetazolamide (Diamox 250 Mg Tab) 250 mg PO BID [facility] Last Admin: 12/13/18 16:40 Dose: 250 mg Albuterol/Ipratropium (Duoneb 3 Mg/0.5 Mg (3 Ml) Ud) 3 ml INH RQ4 [facility] Last Admin: 12/14/18 03:29 Dose: 3 ml Bumetanide (Bumex) 1 mg IVP DAILY [facility] Last Admin: 12/13/18 09:47 Dose: 1 mg Enoxaparin Sodium (Lovenox) 40 mg SC DAILY [facility]; Protocol Last Admin: 12/13/18 09:46 Dose: 40 mg Insulin Detemir (Levemir) 10 units SC [facility] Last Admin: 12/13/18 22:03 Dose: 10 units Insulin Human Regular (Humulin R) 0 units SC ACCU-CHECK [facility]; Protocol Last Admin: 12/13/18 22:30 Dose: Not Given Losartan Potassium (Cozaar) 25 mg PO DAILY [facility] Last Admin: 12/13/18 09:46 Dose: 25 mg Metoprolol Succinate (Toprol Xl) 25 mg PO DAILY [facility] Last Admin: 12/13/18 09:45 Dose: 25 mg Potassium Chloride (Potassium Chloride Oral Soln) 40 meq PO BID [facility] Last Admin: 12/13/18 16:50 Dose: 40 meq Risperidone (Risperidone Odt 0.25mg) 0.25 mg PO HS [facility] Last Admin: 12/08/18 21:03 Dose: 0.25 mg Spironolactone (Aldactone) 12.5 mg PO DAILY [facility] Last Admin: 12/13/18 09:45 Dose: 12.5 mg - Labs Labs: 12/14/18 04:30 12/14/18 04:30 PT 13.7 Seconds (9.8-13.1) H 12/10/18 04:35 INR 1.2 12/10/18 04:35 APTT 35.2 Seconds (25.6-37.1) 12/10/18 04:35 Attending/Attestation - Attestation I have personally seen and examined this patient.: Yes I have fully participated in the care of the patient.: Yes I have reviewed all pertinent clinical information, including history, physical exam and plan: Yes Notes (Text): 12/14/18 06:40 Hold diuretics 2' to hypernatremia gentle IVF hydration with 1/2 NS cont cardiac meds for CHF
[2018-12-11] MEDS: Insulin Detemir 100 Units/ml Inj SC SCH (23:00)
[2018-12-12] MEDS: Insulin Regular 100 units/ml SC SCH ×5 (00:39→22:01)
[2018-12-12] MEDS: Albuterol-Ipratrop 3 mg / 0.5 (3 ml) UD INH SCH ×5 (04:13→19:26)
[2018-12-12 06:44] LABS: MEAN CELL VOLUME 87.8 fl (81.0-99.0); MEAN CORPUSCULAR HEMOGLOBIN 27.9 pg (27.0-31.0); MEAN CORPUSCULAR HGB CONC 31.8 g/dL (33.0-37.0); RBC 3.58 Mil/uL (3.80-5.20); RED CELL DISTRIBUTION WIDTH 20.6 % (11.5-14.5); WHITE BLOOD COUNT 4.2 K/uL (4.8-10.8)
[2018-12-12 07:11] LABS: ALBUMIN 3.1 g/dL (3.5-5.0); ALT/SGPT 18 U/L (9-52); AST/SGOT 27 U/L (14-36); BLOOD UREA NITROGEN 15 mg/dl (7-17); GFR NON-AFRICAN AMERICAN > 60
[2018-12-12] MEDS: Enoxaparin 40 mg Syringe SC SCH (08:35)
[2018-12-12] MEDS: Metoprolol Succinate 25 mg XL Tab PO SCH (08:36)
[2018-12-12] MEDS: Potassium Chloride 20 mEq/15 ml LIQ UD PO SCH ×2 (08:38→17:17)
--- NOTE | 2018-12-12 09:03 | CP.CCUPN ---
CCU Subjective - Physician Review Subjective (Free Text): Remains awake this AM, returned to BiPAP overnight, no other distress. Now off hypotonic fluids. Afebrile, no fever spikes overnight, SBP 120's HR 70s paced, fluid balance positive 1.5 L. ROS: No other pertinent negs or positives on 10+ system review. PMSFH: All other Nursing and physician documentation reviewed to date; no new pertinent info noted relevant to current medical problems. EXAM- HEENT: no icterus, no gaze preference NECK: No JVD visible given short neck and overall obesity, supple, carotids equal upstroke bilat/no bruit CHEST: decreased BS at the bases, no wheezes audible bilaterally. HEART: regular, distant, S1S2, no rubs or murmurs noted ABD: soft, obese, nontender, no guarding, no organomegaly, BS hypoactive. EXT: +1 leg edema- SCDs on bilat, no calf tenderness or palpable cords, distal pulses intact and symmetrical. RUE single lumen PICC. NEURO: withdraws to pain, + tone in all extremities. SKIN: no rashes, warm and dry LABS: WBC= 4.2 HGB= 10.0 PLTs= 168K Na= 144 K= 3.5 CL= 108 HCO3=37 BUN/Cr= 15/0.8 BS= 139 IMPRESSION / MAJOR PROBLEMS NOW: 1. Acute Hypercapneic Resp Failure, 2 bilat Pneumonia / COPD Exacerbation 2. Metabolic Encephalopathy with AMS 2 #1 3. h/o CHF with DDysfx 4. h/o DM II PLAN: 1. No sedatives, continue holding Risperdal. 2. Held Bumex yesterday, could resume and watch fluid balance, Na levels. 3. Cardio contemplating cardiac cath. 4. No Advance Directives present; Pulm discussed clinical status with son and daughter, all aggressive measures to be instituted. CCU Objective - Patient Studies Fingerstick Blood Sugar Results: 130
--- NOTE | 2018-12-12 10:57 | CP.PCM.PN ---
Subjective - Date & Time of Evaluation Date of Evaluation: 12/12/18 Time of Evaluation: 10:57 - Subjective Subjective: OFF BIPAP THIS AM EASILY AROUSABLE Objective - Vital Signs/Intake and Output Vital Signs (last 24 hours): Temp Pulse Resp BP Pulse Ox 98.4 F 80 21 127/59 L 96 12/12/18 08:00 12/12/18 10:00 12/12/18 10:00 12/12/18 10:00 12/12/18 10:00 Intake and Output: 12/12/18 12/12/18 06:59 18:59 Intake Total 1800 180 Output Total 1100 300 Balance 700 -120 - Medications Medications: Current Medications Acetaminophen (Tylenol 325mg Tab) 650 mg PO Q6 PRN PRN Reason: Pain, Mild (1-3) Acetaminophen (Tylenol 325mg Tab) 650 mg PO Q6 PRN PRN Reason: Fever >100.4 F Acetazolamide (Diamox 250 Mg Tab) 250 mg PO BID [facility] Last Admin: 12/12/18 08:35 Dose: 250 mg Albuterol/Ipratropium (Duoneb 3 Mg/0.5 Mg (3 Ml) Ud) 3 ml INH RQ4 [facility] Last Admin: 12/12/18 07:51 Dose: 3 ml Bumetanide (Bumex) 1 mg IVP DAILY [facility] Last Admin: 12/12/18 08:33 Dose: 1 mg Enoxaparin Sodium (Lovenox) 40 mg SC DAILY [facility]; Protocol Last Admin: 12/12/18 08:35 Dose: 40 mg Insulin Detemir (Levemir) [address] [facility] Last Admin: 12/11/18 23:00 Dose: 10 units Insulin Human Regular (Humulin R) 0 units SC ACCU-CHECK [facility]; Protocol Last Admin: 12/12/18 06:40 Dose: Not Given Losartan Potassium (Cozaar) 25 mg PO DAILY [facility] Last Admin: 12/12/18 08:34 Dose: 25 mg Metoprolol Succinate (Toprol Xl) 25 mg PO DAILY [facility] Last Admin: 12/12/18 08:36 Dose: 25 mg Potassium Chloride (Potassium Chloride Oral Soln) 40 meq PO BID [facility] Last Admin: 12/12/18 08:38 Dose: 40 meq Risperidone (Risperidone Odt 0.25mg) 0.25 mg PO HS [facility] Last Admin: 12/08/18 21:03 Dose: 0.25 mg Spironolactone (Aldactone) 12.5 mg PO DAILY [facility] Last Admin: 12/12/18 08:31 Dose: 12.5 mg - Labs Labs: 12/12/18 05:30 12/12/18 05:30 PT 13.7 Seconds (9.8-13.1) H 12/10/18 04:35 INR 1.2 12/10/18 04:35 APTT 35.2 Seconds (25.6-37.1) 12/10/18 04:35 - Constitutional Appears: Chronically Ill - Head Exam Head Exam: ATRAUMATIC, NORMAL INSPECTION, NORMOCEPHALIC - Eye Exam Eye Exam: EOMI, Normal appearance, PERRL Pupil Exam: NORMAL ACCOMODATION, PERRL - ENT Exam ENT Exam: Mucous Membranes Moist, Normal Exam - Neck Exam Neck Exam: Full ROM, Normal Inspection. absent: Lymphadenopathy - Respiratory Exam Respiratory Exam: Decreased Breath Sounds, Prolonged Expiratory Phase, Rales, NORMAL BREATHING PATTERN - Cardiovascular Exam Cardiovascular Exam: REGULAR RHYTHM, +S1, +S2. absent: Murmur - GI/Abdominal Exam GI & Abdominal Exam: Soft, Normal Bowel Sounds. absent: Tenderness - Rectal Exam Rectal Exam: NORMAL INSPECTION - Extremities Exam Extremities Exam: Full ROM, Normal Capillary Refill, Normal Inspection. absent: Joint Swelling, Pedal Edema - Back Exam Back Exam: NORMAL INSPECTION - Neurological Exam Neurological Exam: Alert, Awake, CN II-XII Intact, Normal Gait, Oriented x3 - Psychiatric Exam Psychiatric exam: Flat Affect - Skin Skin Exam: Dry, Intact, Normal Color, Warm Assessment and Plan - Assessment and Plan (Free Text) Assessment: HYPERCAPNEIC RESPIRATORY FAILURE Plan: CONTINUE CURRENT RX BIPAP AT BEDTIME
--- NOTE | 2018-12-12 11:50 | PN ---
DATE: 12/12/2018 SUBJECTIVE: The patient seen and examined. Interim events noted. Consults noted and appreciated. Pulmonary, Cardiology, manager merchandising intervention noted and appreciated. The patient remains in intensive care unit on VentiMask, tolerating well. Sleeping, arousable. Denies any specific complaints other than generalized weakness although the patient is not a good historian. No specific issue reported by nursing staff. The patient remains in intensive care unit, tolerating current VentiMask without any acute respiratory distress. PHYSICAL EXAMINATION VITAL SIGNS: Stable. HEART: S1 and S2 normal and regular. LUNGS: Good bilateral air exchange. ABDOMEN: Soft and nontender. EXTREMITIES: No edema. No calf swelling. No tenderness. No acute ischemia. CENTRAL NERVOUS SYSTEM: Exam is essentially unchanged. DIAGNOSTIC DATA: Available diagnostic data reviewed. Telemetry monitoring does not reveal significant arrhythmias. ASSESSMENT: Overall, the patient's general medical condition is stable and improved. The patient is for cardiac cath on Friday. PLAN: As ordered. Nakul Zhang MD
[2018-12-12] MEDS: Insulin Detemir 100 Units/ml Inj SC SCH (21:44)
[2018-12-13] MEDS: Albuterol-Ipratrop 3 mg / 0.5 (3 ml) UD INH SCH ×8 (00:05→23:55)
[2018-12-13] MEDS: Insulin Regular 100 units/ml SC SCH ×4 (06:23→22:30)
[2018-12-13 06:47] LABS: HEMOGLOBIN 10.4 g/dL (12.0-16.0); MEAN CORPUSCULAR HEMOGLOBIN 27.7 pg (27.0-31.0); MEAN CORPUSCULAR HGB CONC 31.8 g/dL (33.0-37.0); RBC 3.77 Mil/uL (3.80-5.20); RED CELL DISTRIBUTION WIDTH 20.3 % (11.5-14.5)
[2018-12-13 07:06] LABS: ALBUMIN 3.2 g/dL (3.5-5.0); ALT/SGPT 25 U/L (9-52); AST/SGOT 25 U/L (14-36); BLOOD UREA NITROGEN 16 mg/dl (7-17); CALCIUM 9.3 mg/dL (8.4-10.2); GFR NON-AFRICAN AMERICAN > 60
[2018-12-13] MEDS: Potassium Chloride 20 mEq/15 ml LIQ UD PO SCH ×2 (09:45→16:50)
[2018-12-13] MEDS: Metoprolol Succinate 25 mg XL Tab PO SCH (09:45)
[2018-12-13] MEDS: Enoxaparin 40 mg Syringe SC SCH (09:46)
--- NOTE | 2018-12-13 16:06 | CP.CCUPN ---
CCU Subjective - Physician Review Events Since Last Encounter (Free Text): 12/13/18 16:04 patient is alert and oriented, no complaints. CCU Objective - Vital Signs / Intake & Output Vital Signs (Last 4 hours): Vital Signs Pulse Resp BP Pulse Ox 12/13/18 14:00 80 22 114/72 97 12/13/18 13:49 84 Intake and Output (Last 8hrs): Intake & Output 12/13/18 12/13/18 12/13/18 06:59 14:59 22:59 Intake Total 80 360 Output Total 300 450 Balance -220 -90 Weight 205 lb 6.4 oz Intake: IV 80 Oral 360 Output: Urine 300 450 Urethral (Arias) 300 450 Other: # Bowel Movements 1 - Physical Exam Head: Positive for: Atraumatic, Normocephalic Pupils: Positive for: PERRL Conjunctiva: Positive for: Normal. Negative for: Injected, Icteric Ears: Negative for: Erythema Mouth: Positive for: Moist Mucous Membranes Nose (External): Positive for: Atraumatic Nose (Internal): Positive for: Normal Inspection. Negative for: No Active Bleeding Neck: Positive for: Normal Range of Motion, Trachea Midline. Negative for: JVD Respiratory/Chest: Positive for: Rales, Rhonchi. Negative for: Clear to Auscultation, Respiratory Distress, Accessory Muscle Use, Wheezes Cardiovascular: Positive for: Regular Rate and Rhythm Abdomen: Positive for: Distention, Normal Bowel Sounds. Negative for: Tenderness Upper Extremity: Positive for: Normal Inspection, NORMAL PULSES Lower Extremity: Positive for: Normal Inspection, Edema. Negative for: CALF TENDERNESS Neurological: Positive for: Other (on ventilator, sedated) Psychiatric: Positive for: Alert, Oriented x 3, Normal Concentration, Normal Affect. Negative for: Anxious, Agitated - Medications Active Medications: Active Medications Generic Name Dose Route Start Last Admin Trade Name Freq PRN Reason Stop Dose Admin Acetaminophen 650 mg 12/07/18 20:00 Tylenol 325mg Tab PO Q6 PRN Pain, Mild (1-3) Acetaminophen 650 mg 12/07/18 20:00 Tylenol 325mg Tab PO Q6 PRN Fever >100.4 F Acetazolamide 250 mg 12/07/18 17:00 12/13/18 09:45 Diamox 250 Mg Tab PO 250 mg BID [facility] Administration Albuterol/Ipratropium 3 ml 11/25/18 16:00 12/13/18 15:29 Duoneb 3 Mg/0.5 Mg (3 Ml) Ud INH 3 ml RQ4 [facility] Administration Bumetanide 1 mg 12/09/18 09:00 12/13/18 09:47 Bumex IVP 1 mg DAILY [facility] Administration Enoxaparin Sodium 40 mg 12/08/18 14:45 12/13/18 09:46 Lovenox SC 40 mg DAILY [facility] Administration Protocol Insulin Detemir 10 units 11/22/18 22:00 12/12/18 21:44 Levemir SC 10 units HS [facility] Administration Insulin Human Regular 0 units 11/23/18 12:00 12/13/18 11:45 Humulin R SC Not Given ACCU-CHECK [facility] Protocol Losartan Potassium 25 mg 11/23/18 09:00 12/13/18 09:46 Cozaar PO 25 mg DAILY [facility] Administration Metoprolol Succinate 25 mg 12/07/18 12:45 12/13/18 09:45 Toprol Xl PO 25 mg DAILY [facility] Administration Potassium Chloride 40 meq 12/06/18 09:00 12/13/18 09:45 Potassium Chloride Oral Soln PO 40 meq BID [facility] Administration Risperidone 0.25 mg 12/07/18 22:00 12/08/18 21:03 Risperidone Odt 0.25mg PO 0.25 mg HS [facility] Administration Spironolactone 12.5 mg 11/23/18 09:00 12/13/18 09:45 Aldactone PO 12.5 mg DAILY [facility] Administration - Patient Studies Lab Studies: Lab Studies 12/13/18 12/13/18 12/13/18 Range/Units 11:49 06:17 05:39 WBC (4.8-10.8) K/uL RBC (3.80-5.20) Mil/uL Hgb (12.0-16.0) g/dL Hct (34.0-47.0) % MCV (81.0-99.0) fl MCH (27.0-31.0) pg MCHC (33.0-37.0) g/dL RDW (11.5-14.5) % Plt Count (130-400) K/uL Sodium 150 H (132-148) mmol/l Potassium 3.6 (3.6-5.0) MMOL/L Chloride 103 (98-107) mmol/L Carbon Dioxide 34 H (22-30) mmol/L Anion Gap 17 (10-20) BUN 16 (7-17) mg/dl Creatinine 0.8 (0.7-1.2) mg/dl Est GFR ( Amer) > 60 Est GFR (Non-Af Amer) > 60 POC Glucose (mg/dL) 121 H 107 (65-110) mg/dL Random Glucose 115 H (65-105) mg/dL Calcium 9.3 (8.4-10.2) mg/dL Phosphorus 3.2 (2.5-4.5) mg/dl Magnesium 1.9 (1.6-2.3) MG/DL Total Bilirubin 0.4 (0.2-1.3) mg/dl AST 25 (14-36) U/L ALT 25 (9-52) U/L Alkaline Phosphatase 57 (38-126) U/L Total Protein 6.4 (6.3-8.2) G/DL Albumin 3.2 L (3.5-5.0) g/dL Globulin 3.1 (2.2-3.9) gm/dL Albumin/Globulin Ratio 1.0 (1.0-2.1) 12/13/18 12/12/18 12/12/18 Range/Units 05:39 21:42 16:47 WBC 4.0 L (4.8-10.8) K/uL RBC 3.77 L (3.80-5.20) Mil/uL Hgb 10.4 L (12.0-16.0) g/dL Hct 32.8 L (34.0-47.0) % MCV 87.0 (81.0-99.0) fl MCH 27.7 (27.0-31.0) pg MCHC 31.8 L (33.0-37.0) g/dL RDW 20.3 H (11.5-14.5) % Plt Count 177 (130-400) K/uL Sodium (132-148) mmol/l Potassium (3.6-5.0) MMOL/L Chloride (98-107) mmol/L Carbon Dioxide (22-30) mmol/L Anion Gap (10-20) BUN (7-17) mg/dl Creatinine (0.7-1.2) mg/dl Est GFR ( Amer) Est GFR (Non-Af Amer) POC Glucose (mg/dL) 111 H 118 H (65-110) mg/dL Random Glucose (65-105) mg/dL Calcium (8.4-10.2) mg/dL Phosphorus (2.5-4.5) mg/dl Magnesium (1.6-2.3) MG/DL Total Bilirubin (0.2-1.3) mg/dl AST (14-36) U/L ALT (9-52) U/L Alkaline Phosphatase (38-126) U/L Total Protein (6.3-8.2) G/DL Albumin (3.5-5.0) g/dL Globulin (2.2-3.9) gm/dL Albumin/Globulin Ratio (1.0-2.1) Laboratory Results - last 24 hr 12/12/18 12/12/18 12/13/18 16:47 21:42 05:39 WBC 4.0 L RBC 3.77 L Hgb 10.4 L Hct 32.8 L MCV 87.0 MCH 27.7 MCHC 31.8 L RDW 20.3 H Plt Count 177 Sodium Potassium Chloride Carbon Dioxide Anion Gap BUN Creatinine Est GFR ( Amer) Est GFR (Non-Af Amer) POC Glucose (mg/dL) 118 H 111 H Random Glucose Calcium Phosphorus Magnesium Total Bilirubin AST ALT Alkaline Phosphatase Total Protein Albumin Globulin Albumin/Globulin Ratio 12/13/18 12/13/18 12/13/18 05:39 06:17 11:49 WBC RBC Hgb Hct MCV MCH MCHC RDW Plt Count Sodium 150 H Potassium 3.6 Chloride 103 Carbon Dioxide 34 H Anion Gap 17 BUN 16 Creatinine 0.8 Est GFR ( Amer) > 60 Est GFR (Non-Af Amer) > 60 POC Glucose (mg/dL) 107 121 H Random Glucose 115 H Calcium 9.3 Phosphorus 3.2 Magnesium 1.9 Total Bilirubin 0.4 AST 25 ALT 25 Alkaline Phosphatase 57 Total Protein 6.4 Albumin 3.2 L Globulin 3.1 Albumin/Globulin Ratio 1.0 Fingerstick Blood Sugar Results: 121 Review of Systems - Review of Systems All systems: reviewed and no additional remarkable complaints except (no complaints) Critical Care Progress Note - Nutrition Nutrition: Nutrition Category Date Time Status Dysphagia/Modified Consistency Diet [DIET] Diets 12/07/18 Dinner Active Assessment/Plan (1) Acute respiratory failure with hypoxia and hypercarbia Assessment and plan: 83yo F. PMHx NHR, hypothyroidism, DM 2, CHF, diverticulitis, PPM, COPD with recurrent hypercapnic respiratory failure. Neuro: alert and oriented x 3. continue Risperidone. Pulm: chronic respiratory failure with hypercapnea. Acetazolamide po bid, to stimulate respiratory drive, of questionable benefit. CV: hemodynamically stable. CHF controlled with metoprolol, cozaar, daily bumex and spironolactone. Hem: no acute issues Renal: no acute issues Endo: DM type 2, levemir qhs, RISS q6h for coverage GI: dysphagia diet ID: no acute issues DVT proph - lovenox GI proph - not currently indicated Code status - full code Critical Care Time spent 35 minutes Multi-disciplinary rounds were performed with house staff, nursing, speech therapy, respiratory therapy, pharmacy and nutrition with integrated input from the primary team/attending and other consulting services. The documented time is cumulative and includes review of patient data/exams/labs/chart review and examination of the patient on rounds and throughout the day; time is exclusive of any procedures or teaching time. Current Visit: Yes Status: Acute
[2018-12-13] MEDS: Insulin Detemir 100 Units/ml Inj SC SCH (22:03)
[2018-12-14] MEDS: Albuterol-Ipratrop 3 mg / 0.5 (3 ml) UD INH SCH ×6 (03:29→23:34)
[2018-12-14 05:46] LABS: HEMOGLOBIN 10.3 g/dL (12.0-16.0); MEAN CELL VOLUME 87.6 fl (81.0-99.0); MEAN CORPUSCULAR HEMOGLOBIN 27.5 pg (27.0-31.0); MEAN CORPUSCULAR HGB CONC 31.4 g/dL (33.0-37.0); RBC 3.74 Mil/uL (3.80-5.20); RED CELL DISTRIBUTION WIDTH 20.7 % (11.5-14.5); WHITE BLOOD COUNT 4.1 K/uL (4.8-10.8)
[2018-12-14 06:15] LABS: ALBUMIN 3.2 g/dL (3.5-5.0); ALT/SGPT 25 U/L (9-52); AST/SGOT 25 U/L (14-36); BLOOD UREA NITROGEN 17 mg/dl (7-17); GFR NON-AFRICAN AMERICAN > 60
[2018-12-14] MEDS: Insulin Regular 100 units/ml SC SCH ×4 (07:35→22:23)
--- NOTE | 2018-12-14 08:42 | PN ---
DATE: 12/13/2018 SUBJECTIVE: The patient seen and examined. Interim events noted. The patient remains in intensive care unit. Awake, responsive, feels okay. Denies any specific complaint. No chest pain or shortness of breath. PHYSICAL EXAMINATION: GENERAL: The patient is in no acute distress. VITAL SIGNS: Stable. HEART: S1, S2 normal and regular.. LUNGS: Good bilateral air exchange. ABDOMEN: Soft, nontender. EXTREMITIES: No edema, no calf swelling. No tenderness. No acute ischemia. CENTRAL NERVOUS SYSTEM: Exam is essentially unchanged. DIAGNOSTIC DATA: Available diagnostic data reviewed. Telemetry monitoring does not show significant arrhythmias. Consults noted and appreciated. Pulmonary and cook syrup maker intervention noted and appreciated. ASSESSMENT AND PLAN: Overall, the patient is clinically stable and improving. The patient is for cardiac catheterization. Plan as ordered. Nakul Zhang MD
--- NOTE | 2018-12-14 09:02 | CP.PCM.PN ---
<Pierce Yo - Last Filed: 12/14/18 11:01> Subjective - Date & Time of Evaluation Date of Evaluation: 12/14/18 Time of Evaluation: 09:02 - Subjective Subjective: Pierce Yo DO PGY1 - Internal Medicine Supervisor [employer] - Cardiology Note for Dr. Kim Patient was seen and evaluated at bedside this morning. Continues to be lethargic; no complaints voiced at bedside. Objective - Vital Signs/Intake and Output Vital Signs (last 24 hours): Temp Pulse Resp BP Pulse Ox 97.8 F 76 22 130/59 L 96 12/14/18 08:00 12/14/18 08:00 12/14/18 08:00 12/14/18 08:00 12/14/18 08:00 Intake and Output: 12/14/18 12/14/18 06:59 18:59 Intake Total 0 Output Total 125 Balance -125 - Medications Medications: Current Medications Acetaminophen (Tylenol 325mg Tab) 650 mg PO Q6 PRN PRN Reason: Pain, Mild (1-3) Acetaminophen (Tylenol 325mg Tab) 650 mg PO Q6 PRN PRN Reason: Fever >100.4 F Acetazolamide (Diamox 250 Mg Tab) 250 mg PO BID [facility] Last Admin: 12/13/18 16:40 Dose: 250 mg Albuterol/Ipratropium (Duoneb 3 Mg/0.5 Mg (3 Ml) Ud) 3 ml INH RQ4 [facility] Last Admin: 12/14/18 07:52 Dose: 3 ml Bumetanide (Bumex) 1 mg IVP DAILY [facility] Last Admin: 12/13/18 09:47 Dose: 1 mg Enoxaparin Sodium (Lovenox) 40 mg SC DAILY [facility]; Protocol Last Admin: 12/13/18 09:46 Dose: 40 mg Insulin Detemir (Levemir) 10 units SC HS [facility] Last Admin: 12/13/18 22:03 Dose: 10 units Insulin Human Regular (Humulin R) 0 units SC ACCU-CHECK [facility]; Protocol Last Admin: 12/14/18 07:35 Dose: Not Given Losartan Potassium (Cozaar) 25 mg PO DAILY [facility] Last Admin: 12/13/18 09:46 Dose: 25 mg Metoprolol Succinate (Toprol Xl) 25 mg PO DAILY [facility] Last Admin: 12/13/18 09:45 Dose: 25 mg Potassium Chloride (Potassium Chloride Oral Soln) 40 meq PO BID [facility] Last Admin: 12/13/18 16:50 Dose: 40 meq Risperidone (Risperidone Odt 0.25mg) 0.25 mg PO HS [facility] Last Admin: 12/08/18 21:03 Dose: 0.25 mg Spironolactone (Aldactone) 12.5 mg PO DAILY [facility] Last Admin: 12/13/18 09:45 Dose: 12.5 mg - Labs Labs: 12/14/18 04:30 12/14/18 04:30 PT 13.7 Seconds (9.8-13.1) H 12/10/18 04:35 INR 1.2 12/10/18 04:35 APTT 35.2 Seconds (25.6-37.1) 12/10/18 04:35 - Constitutional Appears: Non-Toxic, NAD, Does not show overt lethargy on exam - Eye Exam Eye Exam: PERRL. absent: Scleral icterus - ENT Exam Additional comments: dry mucous membranes - Respiratory Exam Respiratory Exam: Clear to Ausculation Bilateral, NORMAL BREATHING PATTERN - Cardiovascular Exam Cardiovascular Exam: RRR, +S1, +S2. absent: Murmur - GI/Abdominal Exam GI & Abdominal Exam: Soft - Extremities Exam Extremities Exam: Pedal Edema Additional comments: Upper extremity edematous ; Lower extremities warm w/ good cap refill bilaterally - Neurological Exam Additional comments: Alert, Awake, Responsive, Follows Commands - Skin Skin Exam: Dry, Normal Color, Warm Assessment and Plan (1) Acute respiratory failure with hypoxia and hypercarbia Status: Acute (2) Diabetes mellitus type 2 in obese Status: Acute (3) Hypertension Status: Acute - Assessment and Plan (Free Text) Plan: Recurrent hypercapnic respiratory failure etiology unknown. Will plan for cardiac cath at [facility] tomorrow 2 Will hold Bumez 1 daily given hypernatremia Gentle IVF w/ /2 NS Continue Cozaar 25 QD Aldactone 12.5 QD Toprol XL 25 QD Further reccs per Dr. Kim to follow <Douglas Kim - Last Filed: 12/14/18 23:16> Objective - Vital Signs/Intake and Output Vital Signs (last 24 hours): Temp Pulse Resp BP Pulse Ox 98.0 F 84 19 144/79 92 L 12/14/18 16:00 12/14/18 22:31 12/14/18 18:00 12/14/18 18:00 12/14/18 18:00 Intake and Output: 12/14/18 12/15/18 18:59 06:59 Output Total 200 Balance -200 - Medications Medications: Current Medications Acetaminophen (Tylenol 325mg Tab) 650 mg PO Q6 PRN PRN Reason: Pain, Mild (1-3) Acetaminophen (Tylenol 325mg Tab) 650 mg PO Q6 PRN PRN Reason: Fever >100.4 F Acetazolamide (Diamox 250 Mg Tab) 250 mg PO BID [facility] Last Admin: 12/14/18 16:28 Dose: 250 mg Albuterol/Ipratropium (Duoneb 3 Mg/0.5 Mg (3 Ml) Ud) 3 ml INH RQ4 [facility] Last Admin: 12/14/18 19:18 Dose: 3 ml Bumetanide (Bumex) 1 mg IVP DAILY [facility] Last Admin: 12/13/18 09:47 Dose: 1 mg Insulin Detemir (Levemir) 10 units SC HS [facility] Last Admin: 12/14/18 22:24 Dose: 10 units Insulin Human Regular (Humulin R) 0 units SC ACCU-CHECK [facility]; Protocol Last Admin: 12/14/18 22:23 Dose: Not Given Losartan Potassium (Cozaar) 25 mg PO DAILY [facility] Last Admin: 12/14/18 09:40 Dose: 25 mg Metoprolol Succinate (Toprol Xl) 25 mg PO DAILY [facility] Last Admin: 12/14/18 09:41 Dose: 25 mg Potassium Chloride (Potassium Chloride Oral Soln) 40 meq PO BID [facility] Last Admin: 12/14/18 16:29 Dose: 40 meq Risperidone (Risperidone Odt 0.25mg) 0.25 mg PO HS [facility] Last Admin: 12/08/18 21:03 Dose: 0.25 mg Spironolactone (Aldactone) 12.5 mg PO DAILY [facility] Last Admin: 12/14/18 09:40 Dose: 12.5 mg - Labs Labs: 12/14/18 04:30 12/14/18 04:30 PT 13.7 Seconds (9.8-13.1) H 12/10/18 04:35 INR 1.2 12/10/18 04:35 APTT 35.2 Seconds (25.6-37.1) 12/10/18 04:35 Attending/Attestation - Attestation I have personally seen and examined this patient.: Yes I have fully participated in the care of the patient.: Yes I have reviewed all pertinent clinical information, including history, physical exam and plan: Yes
--- NOTE | 2018-12-14 09:14 | CP.PCM.PN ---
Subjective - Date & Time of Evaluation Date of Evaluation: 12/14/18 Time of Evaluation: 09:14 - Subjective Subjective: NO NEW CLINICAL FINDINGS RESPONDS TO VERBAL COMMANDS VSS LUNGS-FAIR AERATION WITH BASAL DULLNESS HEART-S1S2 IMP-HYPERCAPNEIC RESP FAILURE CHF R/O [facility] PLAN-CONTINUE BIPAP RX FOR PROBABLE CARDIAC CATH--R/O ASHD Objective - Vital Signs/Intake and Output Vital Signs (last 24 hours): Temp Pulse Resp BP Pulse Ox 97.8 F 76 22 130/59 L 96 12/14/18 08:00 12/14/18 08:00 12/14/18 08:00 12/14/18 08:00 12/14/18 08:00 Intake and Output: 12/14/18 12/14/18 06:59 18:59 Intake Total 0 Output Total 125 Balance -125 - Medications Medications: Current Medications Acetaminophen (Tylenol 325mg Tab) 650 mg PO Q6 PRN PRN Reason: Pain, Mild (1-3) Acetaminophen (Tylenol 325mg Tab) 650 mg PO Q6 PRN PRN Reason: Fever >100.4 F Acetazolamide (Diamox 250 Mg Tab) 250 mg PO BID [facility] Last Admin: 12/13/18 16:40 Dose: 250 mg Albuterol/Ipratropium (Duoneb 3 Mg/0.5 Mg (3 Ml) Ud) 3 ml INH RQ4 [facility] Last Admin: 12/14/18 07:52 Dose: 3 ml Bumetanide (Bumex) 1 mg IVP DAILY [facility] Last Admin: 12/13/18 09:47 Dose: 1 mg Enoxaparin Sodium (Lovenox) 40 mg SC DAILY [facility]; Protocol Last Admin: 12/13/18 09:46 Dose: 40 mg Insulin Detemir (Levemir) 10 units SC HS [facility] Last Admin: 12/13/18 22:03 Dose: 10 units Insulin Human Regular (Humulin R) 0 units SC ACCU-CHECK [facility]; Protocol Last Admin: 12/14/18 07:35 Dose: Not Given Losartan Potassium (Cozaar) 25 mg PO DAILY [facility] Last Admin: 12/13/18 09:46 Dose: 25 mg Metoprolol Succinate (Toprol Xl) 25 mg PO DAILY [facility] Last Admin: 12/13/18 09:45 Dose: 25 mg Potassium Chloride (Potassium Chloride Oral Soln) 40 meq PO BID [facility] Last Admin: 12/13/18 16:50 Dose: 40 meq Risperidone (Risperidone Odt 0.25mg) 0.25 mg PO HS [facility] Last Admin: 12/08/18 21:03 Dose: 0.25 mg Spironolactone (Aldactone) 12.5 mg PO DAILY [facility] Last Admin: 12/13/18 09:45 Dose: 12.5 mg - Labs Labs: 12/14/18 04:30 12/14/18 04:30 PT 13.7 Seconds (9.8-13.1) H 12/10/18 04:35 INR 1.2 12/10/18 04:35 APTT 35.2 Seconds (25.6-37.1) 12/10/18 04:35
[2018-12-14] MEDS: Potassium Chloride 20 mEq/15 ml LIQ UD PO SCH ×2 (09:38→16:29)
[2018-12-14] MEDS: Enoxaparin 40 mg Syringe SC SCH (09:40)
[2018-12-14] MEDS: Metoprolol Succinate 25 mg XL Tab PO SCH (09:41)
--- NOTE | 2018-12-14 15:35 | PN ---
DATE: 12/14/2018 SUBJECTIVE: The patient seen and examined. Interim events noted. The patient remains in intensive care unit, much more awake, responsive, feels okay. Denies any chest pain or shortness of breath. PHYSICAL EXAMINATION: GENERAL: The patient is in no acute distress. VITAL SIGNS: Stable. HEART: S1, S2 normal and regular. LUNGS: Good bilateral air exchange. ABDOMEN: Soft, nontender. EXTREMITIES: No edema. No calf swelling. No tenderness. No acute ischemia. 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 DIAGNOSTIC DATA: Available diagnostic data reviewed. ASSESSMENT AND PLAN: Overall, the patient's general medical condition is stable. Plan as ordered. Nakul Zhang MD
[2018-12-14] MEDS ORDERED: Potassium Chloride 20 mEq/15 ml LIQ UD PO ONE (15:39)
--- NOTE | 2018-12-14 15:41 | CP.CCUPN ---
CCU Subjective - Physician Review Subjective (Free Text): 12/14/18 15:37 The patient was Seen/interviewed and examined by me at the bedside during ICU round, Medical records reviewed and Management issues were discussed and formulated with the house staff. Events reviewed 83 Years old Female with PMHx of HTN, CHF, Diverticulitis, Hypothyroidism, Pneumonia Who [facility] for an evaluation of increased lethargy and decreased mentation for 1 day. Patient was recently discharged from [facility] on 11/20/18 status post sepsis, pneumonia, and UTI. She received ABX in [facility]ent[facility] and IV fluid challenge in field by paramedics. She was admitted to the ICU for acute Hypercapneic Resp Failure secondary to bilateral Pneumonia and COPD Exacerbation Patient was successfully extubated 12/03 Clinically improving No Vasopressors Awake, Comfortable, NAD Breathing unlabored, on room air O2 sat 95% on 3L nasal cannula Nocturnal BIPAP Afebrile, Completed course of Antibiotics with IV Zosyn Blood 11/22, C/S pos Coagulase negative Staph Most recent Blood C/S negative NSR on the monitor Last 24H I&O 580/1000 Patient was out of bed to chair this morning She was seen by cardiology this morning and scheduled for C Cath at [facility] tomorrow This morning labs revealed No Leucocytosis 4.1, normal renal function BUN/Cr 17/0.8 Hypokalemia 3.6, 20 meq K supplemented Today CXR Stable Bilateral pulmonary vascular congestions, small effusion, Basal atelectasis Patient on Aldactone 12.5 mg PO DAILY, She is off Lasix 60 mg IV daily, with good urine output 12/14/18 15:42 CCU Objective - Vital Signs / Intake & Output Vital Signs (Last 4 hours): Vital Signs Temp Pulse Resp BP Pulse Ox 12/14/18 14:00 85 16 150/70 91 L 12/14/18 12:00 98.6 F 84 21 132/48 L 97 Intake and Output (Last 8hrs): Intake & Output 12/14/18 12/14/18 12/14/18 06:59 14:59 22:59 Intake Total 0 Output Total 125 Balance -125 Weight 203 lb 11.2 oz Intake: IV 0 Output: Urine 125 Urethral (Arias) 125 Other: # Bowel Movements 1 - Physical Exam Head: Positive for: Atraumatic, Normocephalic Pupils: Positive for: PERRL Conjunctiva: Positive for: Normal. Negative for: Injected, Icteric Ears: Negative for: Erythema Mouth: Positive for: Moist Mucous Membranes Nose (External): Positive for: Atraumatic Nose (Internal): Positive for: Normal Inspection. Negative for: No Active Bleeding Neck: Positive for: Normal Range of Motion, Trachea Midline. Negative for: JVD Respiratory/Chest: Positive for: Rales, Rhonchi. Negative for: Clear to Auscultation, Respiratory Distress, Accessory Muscle Use, Wheezes Cardiovascular: Positive for: Regular Rate and Rhythm Abdomen: Positive for: Distention, Normal Bowel Sounds. Negative for: Tenderness Upper Extremity: Positive for: Normal Inspection, NORMAL PULSES Lower Extremity: Positive for: Normal Inspection, Edema. Negative for: CALF TENDERNESS Neurological: Positive for: Other (on ventilator, sedated) Psychiatric: Positive for: Alert, Oriented x 3, Normal Concentration, Normal Affect. Negative for: Anxious, Agitated - Medications Active Medications: Active Medications Generic Name Dose Route Start Last Admin Trade Name Freq PRN Reason Stop Dose Admin Acetaminophen 650 mg 12/07/18 20:00 Tylenol 325mg Tab PO Q6 PRN Pain, Mild (1-3) Acetaminophen 650 mg 12/07/18 20:00 Tylenol 325mg Tab PO Q6 PRN Fever >100.4 F Acetazolamide 250 mg 12/07/18 17:00 12/14/18 09:40 Diamox 250 Mg Tab PO 250 mg BID [facility] Administration Albuterol/Ipratropium 3 ml 11/25/18 16:00 12/14/18 11:17 Duoneb 3 Mg/0.5 Mg (3 Ml) Ud INH 3 ml RQ4 [facility] Administration Bumetanide 1 mg 12/09/18 09:00 12/13/18 09:47 Bumex IVP 1 mg DAILY [facility] Administration Insulin Detemir 10 units 11/22/18 22:00 12/13/18 22:03 Levemir SC 10 units HS [facility] Administration Insulin Human Regular 0 units 11/23/18 12:00 12/14/18 11:48 Humulin R SC Not Given ACCU-CHECK [facility] Protocol Losartan Potassium 25 mg 11/23/18 09:00 12/14/18 09:40 Cozaar PO 25 mg DAILY [facility] Administration Metoprolol Succinate 25 mg 12/07/18 12:45 12/14/18 09:41 Toprol Xl PO 25 mg DAILY [facility] Administration Potassium Chloride 40 meq 12/06/18 09:00 12/14/18 09:38 Potassium Chloride Oral Soln PO 40 meq BID [facility] Administration Risperidone 0.25 mg 12/07/18 22:00 12/08/18 21:03 Risperidone Odt 0.25mg PO 0.25 mg HS [facility] Administration Spironolactone 12.5 mg 11/23/18 09:00 12/14/18 09:40 Aldactone PO 12.5 mg DAILY [facility] Administration - Patient Studies Lab Studies: Lab Studies 12/14/18 12/14/18 12/14/18 Range/Units 11:23 05:24 04:30 WBC (4.8-10.8) K/uL RBC (3.80-5.20) Mil/uL Hgb (12.0-16.0) g/dL Hct (34.0-47.0) % MCV (81.0-99.0) fl MCH (27.0-31.0) pg MCHC (33.0-37.0) g/dL RDW (11.5-14.5) % Plt Count (130-400) K/uL Sodium 149 H (132-148) mmol/l Potassium 3.6 (3.6-5.0) MMOL/L Chloride 103 (98-107) mmol/L Carbon Dioxide 36 H (22-30) mmol/L Anion Gap 14 (10-20) BUN 17 (7-17) mg/dl Creatinine 0.8 (0.7-1.2) mg/dl Est GFR ( Amer) > 60 Est GFR (Non-Af Amer) > 60 POC Glucose (mg/dL) 112 H 123 H (65-110) mg/dL Random Glucose 125 H (65-105) mg/dL Calcium 10.0 (8.4-10.2) mg/dL Phosphorus 4.2 (2.5-4.5) mg/dl Magnesium 1.9 (1.6-2.3) MG/DL Total Bilirubin 0.4 (0.2-1.3) mg/dl AST 25 (14-36) U/L ALT 25 (9-52) U/L Alkaline Phosphatase 58 (38-126) U/L Total Protein 6.4 (6.3-8.2) G/DL Albumin 3.2 L (3.5-5.0) g/dL Globulin 3.2 (2.2-3.9) gm/dL Albumin/Globulin Ratio 1.0 (1.0-2.1) 12/14/18 12/13/18 12/13/18 Range/Units 04:30 21:18 16:26 WBC 4.1 L (4.8-10.8) K/uL RBC 3.74 L (3.80-5.20) Mil/uL Hgb 10.3 L (12.0-16.0) g/dL Hct 32.8 L (34.0-47.0) % MCV 87.6 (81.0-99.0) fl MCH 27.5 (27.0-31.0) pg MCHC 31.4 L (33.0-37.0) g/dL RDW 20.7 H (11.5-14.5) % Plt Count 162 (130-400) K/uL Sodium (132-148) mmol/l Potassium (3.6-5.0) MMOL/L Chloride (98-107) mmol/L Carbon Dioxide (22-30) mmol/L Anion Gap (10-20) BUN (7-17) mg/dl Creatinine (0.7-1.2) mg/dl Est GFR ( Amer) Est GFR (Non-Af Amer) POC Glucose (mg/dL) 132 H 107 (65-110) mg/dL Random Glucose (65-105) mg/dL Calcium (8.4-10.2) mg/dL Phosphorus (2.5-4.5) mg/dl Magnesium (1.6-2.3) MG/DL Total Bilirubin (0.2-1.3) mg/dl AST (14-36) U/L ALT (9-52) U/L Alkaline Phosphatase (38-126) U/L Total Protein (6.3-8.2) G/DL Albumin (3.5-5.0) g/dL Globulin (2.2-3.9) gm/dL Albumin/Globulin Ratio (1.0-2.1) Laboratory Results - last 24 hr 12/13/18 12/13/18 12/14/18 16:26 21:18 04:30 WBC 4.1 L RBC 3.74 L Hgb 10.3 L Hct 32.8 L MCV 87.6 MCH 27.5 MCHC 31.4 L RDW 20.7 H Plt Count 162 Sodium Potassium Chloride Carbon Dioxide Anion Gap BUN Creatinine Est GFR ( Amer) Est GFR (Non-Af Amer) POC Glucose (mg/dL) 107 132 H Random Glucose Calcium Phosphorus Magnesium Total Bilirubin AST ALT Alkaline Phosphatase Total Protein Albumin Globulin Albumin/Globulin Ratio 12/14/18 12/14/18 12/14/18 04:30 05:24 11:23 WBC RBC Hgb Hct MCV MCH MCHC RDW Plt Count Sodium 149 H Potassium 3.6 Chloride 103 Carbon Dioxide 36 H Anion Gap 14 BUN 17 Creatinine 0.8 Est GFR ( Amer) > 60 Est GFR (Non-Af Amer) > 60 POC Glucose (mg/dL) 123 H 112 H Random Glucose 125 H Calcium 10.0 Phosphorus 4.2 Magnesium 1.9 Total Bilirubin 0.4 AST 25 ALT 25 Alkaline Phosphatase 58 Total Protein 6.4 Albumin 3.2 L Globulin 3.2 Albumin/Globulin Ratio 1.0 Fingerstick Blood Sugar Results: 112 Critical Care Progress Note - Nutrition Nutrition: Nutrition Category Date Time Status Dysphagia/Modified Consistency Diet [DIET] Diets 12/07/18 Dinner Active NPO Diet [DIET] Diets 12/15/18 Breakfast Active Assessment/Plan (1) Acute congestive heart failure Current Visit: Yes Status: Acute Comment: NSR on the monitor Today CXR Stable Bilateral pulmonary vascular congestions, small effusion, Basal atelectasis Patient on Lasix 60 mg IV daily and Aldactone 12.5 mg PO DAILY, She received the Lasix this morning, with good urine output Breathing unlabored, on room air O2 sat 95% on 3L nasal cannula Nocturnal BIPAP (2) Acute respiratory failure with hypoxia and hypercarbia Current Visit: Yes Status: Acute Priority: High Comment: Successfully extubated Breathing unlabored, on room air O2 sat 95% on 3L nasal cannula Nocturnal BIPAP OOb to chair (3) Bacteremia Current Visit: Yes Status: Resolved Priority: High Comment: Afebrile Completed IV Zosyn Blood C/S pos Coagulase negative Staph IV Vanco was held on 11/30 due to elevated drug level Most recent Blood C/S negative (4) Metabolic encephalopathy Current Visit: Yes Status: Acute Comment: Multifactorial, resolving (5) Sepsis Current Visit: Yes Status: Resolved Priority: High
[2018-12-14] MEDS: Insulin Detemir 100 Units/ml Inj SC SCH (22:24)
[2018-12-15] MEDS: Albuterol-Ipratrop 3 mg / 0.5 (3 ml) UD INH SCH ×5 (04:55→20:31)
[2018-12-15 05:24] LABS: HEMOGLOBIN 10.7 g/dL (12.0-16.0); MEAN CELL VOLUME 87.4 fl (81.0-99.0); MEAN CORPUSCULAR HEMOGLOBIN 27.8 pg (27.0-31.0); MEAN CORPUSCULAR HGB CONC 31.9 g/dL (33.0-37.0); RBC 3.83 Mil/uL (3.80-5.20); RED CELL DISTRIBUTION WIDTH 20.6 % (11.5-14.5); WHITE BLOOD COUNT 4.3 K/uL (4.8-10.8)
[2018-12-15 05:38] LABS: ALBUMIN 3.4 g/dL (3.5-5.0); ALT/SGPT 16 U/L (9-52); AST/SGOT 27 U/L (14-36); BLOOD UREA NITROGEN 18 mg/dl (7-17); GFR NON-AFRICAN AMERICAN > 60
[2018-12-15] MEDS: Insulin Regular 100 units/ml SC SCH ×3 (08:07→22:25)
[2018-12-15] MEDS: Metoprolol Succinate 25 mg XL Tab PO SCH (08:59)
--- NOTE | 2018-12-15 10:41 | CP.PCM.PN ---
<Nelli Yo - Last Filed: 12/15/18 13:25> Subjective - Date & Time of Evaluation Date of Evaluation: 12/15/18 Time of Evaluation: 06:15 - Subjective Subjective: Patient seen and examined this morning at bedside. NAD, Alert and awake, breathing comfortably on NC, no acute event overnight. Objective - Vital Signs/Intake and Output Vital Signs (last 24 hours): Temp Pulse Resp BP Pulse Ox 97.8 F 80 22 134/57 L 98 12/15/18 08:00 12/15/18 08:59 12/15/18 08:00 12/15/18 08:59 12/15/18 08:00 Intake and Output: 12/15/18 12/15/18 06:59 18:59 Intake Total 0 Output Total 200 Balance -200 - Medications Medications: Current Medications Acetaminophen (Tylenol 325mg Tab) 650 mg PO Q6 PRN PRN Reason: Pain, Mild (1-3) Acetaminophen (Tylenol 325mg Tab) 650 mg PO Q6 PRN PRN Reason: Fever >100.4 F Acetazolamide (Diamox 250 Mg Tab) 250 mg PO BID [facility] Last Admin: 12/15/18 09:00 Dose: 250 mg Albuterol/Ipratropium (Duoneb 3 Mg/0.5 Mg (3 Ml) Ud) 3 ml INH RQ4 [facility] Last Admin: 12/15/18 07:35 Dose: 3 ml Bumetanide (Bumex) 1 mg IVP DAILY [facility] Last Admin: 12/13/18 09:47 Dose: 1 mg Insulin Detemir (Levemir) 10 units SC HS [facility] Last Admin: 12/14/18 22:24 Dose: 10 units Insulin Human Regular (Humulin R) 0 units SC ACCU-CHECK [facility]; Protocol Last Admin: 12/15/18 08:07 Dose: Not Given Losartan Potassium (Cozaar) 25 mg PO DAILY [facility] Last Admin: 12/15/18 08:59 Dose: 25 mg Metoprolol Succinate (Toprol Xl) 25 mg PO DAILY [facility] Last Admin: 12/15/18 08:59 Dose: 25 mg Potassium Chloride (Potassium Chloride Oral Soln) 40 meq PO BID [facility] Last Admin: 12/14/18 16:29 Dose: 40 meq Risperidone (Risperidone Odt 0.25mg) 0.25 mg PO HS [facility] Last Admin: 12/08/18 21:03 Dose: 0.25 mg Spironolactone (Aldactone) 12.5 mg PO DAILY [facility] Last Admin: 12/15/18 09:00 Dose: 12.5 mg - Labs Labs: 12/15/18 04:45 12/15/18 04:45 PT 13.7 Seconds (9.8-13.1) H 12/10/18 04:35 INR 1.2 12/10/18 04:35 APTT 35.2 Seconds (25.6-37.1) 12/10/18 04:35 - Constitutional Appears: No Acute Distress - Head Exam Head Exam: NORMAL INSPECTION - Eye Exam Eye Exam: Normal appearance - ENT Exam ENT Exam: Mucous Membranes Moist - Neck Exam Neck Exam: Normal Inspection - Respiratory Exam Respiratory Exam: NORMAL BREATHING PATTERN (Course breath sounds ). absent: Accessory Muscle Use, Decreased Breath Sounds - Cardiovascular Exam Cardiovascular Exam: REGULAR RHYTHM, +S1, +S2 - GI/Abdominal Exam GI & Abdominal Exam: Soft, Normal Bowel Sounds. absent: Tenderness - Back Exam Back Exam: NORMAL INSPECTION - Neurological Exam Neurological Exam: Alert, Awake - Skin Skin Exam: Normal Color Assessment and Plan - Assessment and Plan (Free Text) Assessment: A/P: 83 y/o female with PMHx of HTN, CHF (w/ pacemaker), DM, hypothyroidism, admitted due to recurrent hypercapneic respiratory failure. Patient brought to ED on 11/22/18 for LATONIA due to AMS, intubated and admitted to ICU. Successfully extubated on 12/03/18. Recurrent hypercapneic respiratory failure s/p intubation and on MV on 11/22/18, ext 12/03/18 -hold risperadone -pulmonary on board -c/w BIPAPA at night and O2 as needed -F/u CXR in AM Encephalopathy, AMS -Improving -Likely 2/2 to hypercapnia, respiratory failure -waxing and waning based on CO levels -Ct Head no acute findings CHF, pacemaker, chronic -systolic dysfunction (one echo 10/27) -Cardiology on board; meds adjusted -Possible cardiac Cath today as per Dr. Kim -Continue Cozaar, Aldectome and Toprol as per Vascular -Hold Bumex due to hypernatremia Pleural Infiltrate/effusion/HCAP -effusion 2/2 to CHF, on diuretic -S/p Zosyn and Vanco -F/u CXR in morning Bacteremia, sepsis -resolved -Blood cx 11/22/18: Coag neg Staph -BCx 11/24 neg -s/p tx with IV abx, ID on board Anemia, Normocytic -likely acute on chronic -No acute source of GI bleed -stable DVT prophylx: Lovenox SC Cont to work with physical therapy to work on gait and strengthening Case discussed with Dr. Zhang <Nakul Zhang - Last Filed: 12/17/18 10:34> Objective - Vital Signs/Intake and Output Vital Signs (last 24 hours): Temp Pulse Resp BP Pulse Ox 98.3 F 83 17 139/65 93 L 12/17/18 08:00 12/17/18 09:00 12/17/18 08:00 12/17/18 08:50 12/17/18 08:00 Intake and Output: 12/16/18 12/17/18 23:59 11:59 Intake Total 500 0 Output Total 250 300 Balance 250 -300 - Medications Medications: Current Medications Acetaminophen (Tylenol 325mg Tab) 650 mg PO Q6 PRN PRN Reason: Pain, Mild (1-3) Acetaminophen (Tylenol 325mg Tab) 650 mg PO Q6 PRN PRN Reason: Fever >100.4 F Acetazolamide (Diamox 250 Mg Tab) 250 mg PO BID [facility] Last Admin: 12/17/18 08:49 Dose: 250 mg Albuterol/Ipratropium (Duoneb 3 Mg/0.5 Mg (3 Ml) Ud) 3 ml INH RQ4 [facility] Last Admin: 12/17/18 07:38 Dose: 3 ml Aspirin (Aspirin Chewable) 81 mg PO DAILY [facility] Last Admin: 12/17/18 08:49 Dose: 81 mg Bumetanide (Bumex) 1 mg IVP DAILY [facility] Last Admin: 12/13/18 09:47 Dose: 1 mg Clopidogrel Bisulfate (Plavix) 75 mg PO DAILY [facility] Last Admin: 12/17/18 08:49 Dose: 75 mg Insulin Detemir (Levemir) 10 units SC [facility] Last Admin: 12/16/18 23:00 Dose: Not Given Insulin Human Regular (Humulin R) 0 units SC ACCU-CHECK [facility]; Protocol Last Admin: 12/17/18 06:02 Dose: Not Given Losartan Potassium (Cozaar) 25 mg PO DAILY [facility] Last Admin: 12/17/18 08:50 Dose: 25 mg Metoprolol Succinate (Toprol Xl) 25 mg PO DAILY [facility] Last Admin: 12/17/18 08:49 Dose: 25 mg Potassium Chloride (Potassium Chloride Oral Soln) 40 meq PO BID [facility] Last Admin: 12/17/18 08:51 Dose: 40 meq Risperidone (Risperidone Odt 0.25mg) 0.25 mg PO HS [facility] Last Admin: 12/08/18 21:03 Dose: 0.25 mg Spironolactone (Aldactone) 12.5 mg PO DAILY [facility] Last Admin: 12/17/18 08:49 Dose: 12.5 mg - Labs Labs: 12/16/18 04:55 12/16/18 04:55 PT 13.7 Seconds (9.8-13.1) H 12/10/18 04:35 INR 1.2 12/10/18 04:35 APTT 35.2 Seconds (25.6-37.1) 12/10/18 04:35 Assessment and Plan - Assessment and Plan (Free Text) Assessment: Patient was personally seen and examined by me in rounds with residents. Available labs and diagnostic data reviewed. Case, Patient's condition and management plan discussed with residents in rounds. Agree with resident's progress note. Plan: As ordered.
--- NOTE | 2018-12-15 11:11 | CP.PCM.PN ---
<Pierce Hightower - Last Filed: 12/15/18 16:58> Subjective - Date & Time of Evaluation Date of Evaluation: 12/15/18 Time of Evaluation: 11:09 - Subjective Subjective: Pierce hightower DO PGY1 - Internal Medicine [employer]rentice - Cardiology Note For Dr. Kim patient wa seen and evaluated at bedside this morning appears to be more awake this morning; however she is not vocalizing complaints Objective - Vital Signs/Intake and Output Vital Signs (last 24 hours): Temp Pulse Resp BP Pulse Ox 97.8 F 80 22 134/57 L 98 12/15/18 08:00 12/15/18 08:59 12/15/18 08:00 12/15/18 08:59 12/15/18 08:00 Intake and Output: 12/15/18 12/15/18 06:59 18:59 Intake Total 0 Output Total 200 Balance -200 - Medications Medications: Current Medications Acetaminophen (Tylenol 325mg Tab) 650 mg PO Q6 PRN PRN Reason: Pain, Mild (1-3) Acetaminophen (Tylenol 325mg Tab) 650 mg PO Q6 PRN PRN Reason: Fever >100.4 F Acetazolamide (Diamox 250 Mg Tab) 250 mg PO BID [facility] Last Admin: 12/15/18 09:00 Dose: 250 mg Albuterol/Ipratropium (Duoneb 3 Mg/0.5 Mg (3 Ml) Ud) 3 ml INH RQ4 [facility] Last Admin: 12/15/18 11:03 Dose: 3 ml Bumetanide (Bumex) 1 mg IVP DAILY [facility] Last Admin: 12/13/18 09:47 Dose: 1 mg Insulin Detemir (Levemir) 10 units SC HS [facility] Last Admin: 12/14/18 22:24 Dose: 10 units Insulin Human Regular (Humulin R) 0 units SC ACCU-CHECK [facility]; Protocol Last Admin: 12/15/18 08:07 Dose: Not Given Losartan Potassium (Cozaar) 25 mg PO DAILY [facility] Last Admin: 12/15/18 08:59 Dose: 25 mg Metoprolol Succinate (Toprol Xl) 25 mg PO DAILY [facility] Last Admin: 12/15/18 08:59 Dose: 25 mg Potassium Chloride (Potassium Chloride Oral Soln) 40 meq PO BID [facility] Last Admin: 12/14/18 16:29 Dose: 40 meq Risperidone (Risperidone Odt 0.25mg) 0.25 mg PO HS [facility] Last Admin: 12/08/18 21:03 Dose: 0.25 mg Spironolactone (Aldactone) 12.5 mg PO DAILY [facility] Last Admin: 12/15/18 09:00 Dose: 12.5 mg - Labs Labs: 12/15/18 04:45 12/15/18 04:45 PT 13.7 Seconds (9.8-13.1) H 12/10/18 04:35 INR 1.2 12/10/18 04:35 APTT 35.2 Seconds (25.6-37.1) 12/10/18 04:35 - Constitutional Appears: Well, Non-toxic, No Acute Distress - Head Exam Head Exam: ATRAUMATIC, NORMOCEPHALIC - Eye Exam Eye Exam: EOMI, PERRL - ENT Exam ENT Exam: Mucous Membranes Moist - Respiratory Exam Respiratory Exam: Rhonchi (mild) - Cardiovascular Exam Cardiovascular Exam: RRR, +S1, +S2 - Extremities Exam Extremities Exam: Normal Capillary Refill. absent: Pedal Edema - Neurological Exam Neurological Exam: Awake Assessment and Plan (1) Acute respiratory failure with hypoxia and hypercarbia Status: Acute (2) Diabetes mellitus type 2 in obese Status: Acute (3) Hypertension Status: Acute - Assessment and Plan (Free Text) Plan: [facility] take patient [facility] for cardiac cath w/ Dr. Kim Patient underwent attempted complete heart catheterization today; study limited due to schedule; LHC only completed at this time. Findings as below MID LAD 80% Stenosis EF 30-35% Will require PCI of LAD Hypernatremia resolving; Will continue holding Bumex 1mg QD at this time Continue Cozaar 25 QD Aldactone 12.5 QD Toprol XL 25 QD Further reccs per Dr. Kim to follow <Douglas Kim - Last Filed: 12/16/18 18:03> Objective - Vital Signs/Intake and Output Vital Signs (last 24 hours): Temp Pulse Resp BP Pulse Ox 98.1 F 83 12 124/56 L 96 12/15/18 12:00 12/15/18 12:00 12/15/18 12:00 12/15/18 12:00 12/15/18 12:00 Intake and Output: 12/15/18 12/15/18 06:59 18:59 Intake Total 0 Output Total 200 Balance -200 - Medications Medications: Current Medications Acetaminophen (Tylenol 325mg Tab) 650 mg PO Q6 PRN PRN Reason: Pain, Mild (1-3) Acetaminophen (Tylenol 325mg Tab) 650 mg PO Q6 PRN PRN Reason: Fever >100.4 F Acetazolamide (Diamox 250 Mg Tab) 250 mg PO BID [facility] Last Admin: 12/15/18 09:00 Dose: 250 mg Albuterol/Ipratropium (Duoneb 3 Mg/0.5 Mg (3 Ml) Ud) 3 ml INH RQ4 [facility] Last Admin: 12/15/18 11:03 Dose: 3 ml Bumetanide (Bumex) 1 mg IVP DAILY [facility] Last Admin: 12/13/18 09:47 Dose: 1 mg Insulin Detemir (Levemir) 10 units SC HS [facility] Last Admin: 12/14/18 22:24 Dose: 10 units Insulin Human Regular (Humulin R) 0 units SC ACCU-CHECK [facility]; Protocol Last Admin: 12/15/18 13:19 Dose: Not Given Losartan Potassium (Cozaar) 25 mg PO DAILY [facility] Last Admin: 12/15/18 08:59 Dose: 25 mg Metoprolol Succinate (Toprol Xl) 25 mg PO DAILY [facility] Last Admin: 12/15/18 08:59 Dose: 25 mg Potassium Chloride (Potassium Chloride Oral Soln) 40 meq PO BID [facility] Last Admin: 12/14/18 16:29 Dose: 40 meq Risperidone (Risperidone Odt 0.25mg) 0.25 mg PO HS [facility] Last Admin: 12/08/18 21:03 Dose: 0.25 mg Spironolactone (Aldactone) 12.5 mg PO DAILY [facility] Last Admin: 12/15/18 09:00 Dose: 12.5 mg - Labs Labs: 12/15/18 04:45 12/15/18 04:45 PT 13.7 Seconds (9.8-13.1) H 12/10/18 04:35 INR 1.2 12/10/18 04:35 APTT 35.2 Seconds (25.6-37.1) 12/10/18 04:35 Assessment and Plan (1) Acute congestive heart failure Assessment & Plan: s/p LHCx showing 80% mid LAD stenosis LVEF 30-35% plan for PCI [place] L[place] [facility] [place] Status: Acute (2) Acute respiratory failure with hypoxia and hypercarbia Status: Acute (3) Hypertension Status: Acute (4) Metabolic encephalopathy Status: Acute (5) Pleural effusion Status: Acute (6) Respiratory failure Status: Acute Attending/Attestation - Attestation I have personally seen and examined this patient.: Yes I have fully participated in the care of the patient.: Yes I have reviewed all pertinent clinical information, including history, physical exam and plan: Yes
[2018-12-15] MEDS: Potassium Chloride 20 mEq/15 ml LIQ UD PO SCH ×2 (17:00→19:59)
[2018-12-15] MEDS: Insulin Detemir 100 Units/ml Inj SC SCH (22:25)
[2018-12-16] MEDS: Albuterol-Ipratrop 3 mg / 0.5 (3 ml) UD INH SCH ×7 (00:30→23:29)
[2018-12-16 05:54] LABS: BASO % 0.6 % (0.0-2.0); EOS # 0.3 K/uL (0.0-0.7); EOS % 5.6 % (0.0-4.0); HEMOGLOBIN 10.8 g/dL (12.0-16.0); LYMPH # 0.9 K/uL (1.0-4.3); LYMPH % 18.7 % (20.0-40.0); MEAN CELL VOLUME 87.1 fl (81.0-99.0); MEAN CORPUSCULAR HEMOGLOBIN 27.6 pg (27.0-31.0); MEAN CORPUSCULAR HGB CONC 31.7 g/dL (33.0-37.0); MEAN PLATELET VOLUME 9.4 fl (7.2-11.7); MONO # 0.4 K/uL (0.0-0.8); MONO % 8.8 % (0.0-10.0); NEUT # 3.3 K/uL (1.8-7.0); NEUT % 66.3 % (50.0-75.0); NRBC % 0.1 % (0.0-0.0); RBC 3.91 Mil/uL (3.80-5.20); RED CELL DISTRIBUTION WIDTH 20.4 % (11.5-14.5); WHITE BLOOD COUNT 4.9 K/uL (4.8-10.8)
[2018-12-16 06:07] LABS: BLOOD UREA NITROGEN 17 mg/dl (7-17); CALCIUM 9.9 mg/dL (8.4-10.2); GFR NON-AFRICAN AMERICAN > 60
[2018-12-16] MEDS: Insulin Regular 100 units/ml SC SCH ×3 (08:31→16:27)
[2018-12-16] MEDS: Potassium Chloride 20 mEq/15 ml LIQ UD PO SCH ×2 (08:32→16:27)
[2018-12-16] MEDS: Metoprolol Succinate 25 mg XL Tab PO SCH (08:32)
--- NOTE | 2018-12-16 08:33 | CP.PCM.PN ---
<Nelli Yo - Last Filed: 12/16/18 08:40> Subjective - Date & Time of Evaluation Date of Evaluation: 12/16/18 Time of Evaluation: 06:50 - Subjective Subjective: Patient seen and examined at bedside with Dr. Zhang this morning. Alert, awake and verbally responsive today, s/p Cardiac Cath yesterday, well tolerated. Patient is breathing comfortably on NC and used BIPAP overnight. Objective - Vital Signs/Intake and Output Vital Signs (last 24 hours): Temp Pulse Resp BP Pulse Ox 98.3 F 81 19 149/66 100 12/16/18 08:00 12/16/18 08:00 12/16/18 08:00 12/16/18 08:00 12/16/18 08:00 Intake and Output: 12/16/18 12/16/18 06:59 18:59 Intake Total 0 Output Total 300 Balance -300 - Medications Medications: Current Medications Acetaminophen (Tylenol 325mg Tab) 650 mg PO Q6 PRN PRN Reason: Pain, Mild (1-3) Acetaminophen (Tylenol 325mg Tab) 650 mg PO Q6 PRN PRN Reason: Fever >100.4 F Acetazolamide (Diamox 250 Mg Tab) 250 mg PO BID [facility] Last Admin: 12/15/18 17:00 Dose: Not Given Albuterol/Ipratropium (Duoneb 3 Mg/0.5 Mg (3 Ml) Ud) 3 ml INH RQ4 [facility] Last Admin: 12/16/18 07:02 Dose: 3 ml Bumetanide (Bumex) 1 mg IVP DAILY [facility] Last Admin: 12/13/18 09:47 Dose: 1 mg Insulin Detemir (Levemir) 10 units SC HS [facility] Last Admin: 12/15/18 22:25 Dose: Not Given Insulin Human Regular (Humulin R) 0 units SC ACCU-CHECK [facility]; Protocol Last Admin: 12/15/18 22:25 Dose: Not Given Losartan Potassium (Cozaar) 25 mg PO DAILY [facility] Last Admin: 12/15/18 08:59 Dose: 25 mg Metoprolol Succinate (Toprol Xl) 25 mg PO DAILY [facility] Last Admin: 12/15/18 08:59 Dose: 25 mg Potassium Chloride (Potassium Chloride Oral Soln) 40 meq PO BID [facility] Last Admin: 12/15/18 19:59 Dose: Not Given Risperidone (Risperidone Odt 0.25mg) 0.25 mg PO HS [facility] Last Admin: 12/08/18 21:03 Dose: 0.25 mg Spironolactone (Aldactone) 12.5 mg PO DAILY [facility] Last Admin: 12/15/18 09:00 Dose: 12.5 mg - Labs Labs: 12/16/18 04:55 12/16/18 04:55 PT 13.7 Seconds (9.8-13.1) H 12/10/18 04:35 INR 1.2 12/10/18 04:35 APTT 35.2 Seconds (25.6-37.1) 12/10/18 04:35 - Constitutional Appears: No Acute Distress - Head Exam Head Exam: NORMAL INSPECTION - Eye Exam Eye Exam: Normal appearance Pupil Exam: NORMAL ACCOMODATION - ENT Exam ENT Exam: Mucous Membranes Moist - Neck Exam Neck Exam: Normal Inspection - Respiratory Exam Respiratory Exam: NORMAL BREATHING PATTERN (Course BS ). absent: Accessory Muscle Use, Chest Wall Tenderness - Cardiovascular Exam Cardiovascular Exam: REGULAR RHYTHM, +S1, +S2 - GI/Abdominal Exam GI & Abdominal Exam: Soft, Normal Bowel Sounds. absent: Tenderness - Neurological Exam Neurological Exam: Alert, Awake - Psychiatric Exam Psychiatric exam: Normal Affect - Skin Skin Exam: Normal Color Assessment and Plan - Assessment and Plan (Free Text) Assessment: A/P: 83 y/o female with PMHx of HTN, CHF (w/ pacemaker), DM, hypothyroidism, admitted due to recurrent hypercapneic respiratory failure. Patient brought to ED on 11/22/18 for [place]ONIA due to AMS, intubated and admitted to ICU. Successfully extubated on 12/03/18. Will transfer patient to the floor. Recurrent hypercapneic respiratory failure s/p intubation and on MV on 11/22/18, ext 12/03/18 -Improved -hold risperadone -pulmonary on board -c/w BIPAPA at night and O2 as needed -F/u CXR Encephalopathy, AMS -Improving -Likely 2/2 to hypercapnia, respiratory failure -waxing and waning based on CO levels -Ct Head no acute findings CHF, pacemaker, chronic -systolic dysfunction (one echo 10/27) -Cardiology on board; meds adjusted -S/p Cardiac Cath by Dr. Kim, MID LAD 80% Stenosis, EF 30-35%, PCI recommended -Continue Cozaar, Aldectome and Toprol as per Vascular -Hold Bumex due to hypernatremia -Possible PCI of LAD today Pleural Infiltrate/effusion/HCAP -effusion 2/2 to CHF, on diuretic -S/p Zosyn and Vanco -F/u CXR in Bacteremia, sepsis -resolved -Blood cx 11/22/18: Coag neg Staph -BCx 11/24 neg -s/p tx with IV abx, ID on board Anemia, Normocytic -likely acute on chronic -No acute source of GI bleed -stable DVT prophylx: Lovenox SC Cont to work with physical therapy to work on gait and strengthening Case discussed with Dr. Zhang <Nakul Zhang - Last Filed: 12/17/18 10:33> Objective - Vital Signs/Intake and Output Vital Signs (last 24 hours): Temp Pulse Resp BP Pulse Ox 98.3 F 83 17 139/65 93 L 12/17/18 08:00 12/17/18 09:00 12/17/18 08:00 12/17/18 08:50 12/17/18 08:00 Intake and Output: 12/16/18 12/17/18 23:59 11:59 Intake Total 500 0 Output Total 250 300 Balance 250 -300 - Medications Medications: Current Medications Acetaminophen (Tylenol 325mg Tab) 650 mg PO Q6 PRN PRN Reason: Pain, Mild (1-3) Acetaminophen (Tylenol 325mg Tab) 650 mg PO Q6 PRN PRN Reason: Fever >100.4 F Acetazolamide (Diamox 250 Mg Tab) 250 mg PO BID [facility] Last Admin: 12/17/18 08:49 Dose: 250 mg Albuterol/Ipratropium (Duoneb 3 Mg/0.5 Mg (3 Ml) Ud) 3 ml INH RQ4 [facility] Last Admin: 12/17/18 07:38 Dose: 3 ml Aspirin (Aspirin Chewable) 81 mg PO DAILY [facility] Last Admin: 12/17/18 08:49 Dose: 81 mg Bumetanide (Bumex) 1 mg IVP DAILY [facility] Last Admin: 12/13/18 09:47 Dose: 1 mg Clopidogrel Bisulfate (Plavix) 75 mg PO DAILY [facility] Last Admin: 12/17/18 08:49 Dose: 75 mg Insulin Detemir (Levemir) 10 units SC [facility] Last Admin: 12/16/18 23:00 Dose: Not Given Insulin Human Regular (Humulin R) 0 units SC ACCU-CHECK [facility]; Protocol Last Admin: 12/17/18 06:02 Dose: Not Given Losartan Potassium (Cozaar) 25 mg PO DAILY [facility] Last Admin: 12/17/18 08:50 Dose: 25 mg Metoprolol Succinate (Toprol Xl) 25 mg PO DAILY [facility] Last Admin: 12/17/18 08:49 Dose: 25 mg Potassium Chloride (Potassium Chloride Oral Soln) 40 meq PO BID [facility] Last Admin: 12/17/18 08:51 Dose: 40 meq Risperidone (Risperidone Odt 0.25mg) 0.25 mg PO [facility] Last Admin: 12/08/18 21:03 Dose: 0.25 mg Spironolactone (Aldactone) 12.5 mg PO DAILY [facility] Last Admin: 12/17/18 08:49 Dose: 12.5 mg - Labs Labs: 12/16/18 04:55 12/16/18 04:55 PT 13.7 Seconds (9.8-13.1) H 12/10/18 04:35 INR 1.2 12/10/18 04:35 APTT 35.2 Seconds (25.6-37.1) 12/10/18 04:35 Assessment and Plan - Assessment and Plan (Free Text) Assessment: Patient was personally seen and examined by me in rounds with residents. Available labs and diagnostic data reviewed. Case, Patient's condition and management plan discussed with residents in rounds. Agree with resident's progress note. Plan: As ordered.
--- NOTE | 2018-12-16 09:19 | CP.PCM.PN ---
<Pierce Yo - Last Filed: 12/16/18 18:05> Subjective - Date & Time of Evaluation Date of Evaluation: 12/16/18 Time of Evaluation: 09:19 - Subjective Subjective: Pierce Yo DO PGY1 - Cardiology Note for Dr. Kim Patient was seen and evaluated at bedside this morning No issues voiced by nursing staff Awake/Alert limited response to questions however due to bipap in place; however much more responsive today than yesterday. Objective - Vital Signs/Intake and Output Vital Signs (last 24 hours): Temp Pulse Resp BP Pulse Ox 98.3 F 87 19 149/66 100 12/16/18 08:00 12/16/18 08:32 12/16/18 08:00 12/16/18 08:32 12/16/18 08:00 Intake and Output: 12/16/18 12/16/18 06:59 18:59 Intake Total 0 Output Total 300 Balance -300 - Medications Medications: Current Medications Acetaminophen (Tylenol 325mg Tab) 650 mg PO Q6 PRN PRN Reason: Pain, Mild (1-3) Acetaminophen (Tylenol 325mg Tab) 650 mg PO Q6 PRN PRN Reason: Fever >100.4 F Acetazolamide (Diamox 250 Mg Tab) 250 mg PO BID [facility] Last Admin: 12/16/18 08:31 Dose: 250 mg Albuterol/Ipratropium (Duoneb 3 Mg/0.5 Mg (3 Ml) Ud) 3 ml INH RQ4 [facility] Last Admin: 12/16/18 07:02 Dose: 3 ml Bumetanide (Bumex) 1 mg IVP DAILY [facility] Last Admin: 12/13/18 09:47 Dose: 1 mg Insulin Detemir (Levemir) 10 units SC HS [facility] Last Admin: 12/15/18 22:25 Dose: Not Given Insulin Human Regular (Humulin R) 0 units SC ACCU-CHECK [facility]; Protocol Last Admin: 12/16/18 08:31 Dose: Not Given Losartan Potassium (Cozaar) 25 mg PO DAILY [facility] Last Admin: 12/16/18 08:31 Dose: 25 mg Metoprolol Succinate (Toprol Xl) 25 mg PO DAILY [facility] Last Admin: 12/16/18 08:32 Dose: 25 mg Potassium Chloride (Potassium Chloride Oral Soln) 40 meq PO BID [facility] Last Admin: 12/16/18 08:32 Dose: 40 meq Risperidone (Risperidone Odt 0.25mg) 0.25 mg PO HS [facility] Last Admin: 12/08/18 21:03 Dose: 0.25 mg Spironolactone (Aldactone) 12.5 mg PO DAILY [facility] Last Admin: 12/16/18 08:31 Dose: 12.5 mg - Labs Labs: 12/16/18 04:55 12/16/18 04:55 PT 13.7 Seconds (9.8-13.1) H 12/10/18 04:35 INR 1.2 12/10/18 04:35 APTT 35.2 Seconds (25.6-37.1) 12/10/18 04:35 - Constitutional Appears: Well, Non-toxic, No Acute Distress - Head Exam Head Exam: ATRAUMATIC, NORMOCEPHALIC - Eye Exam Eye Exam: EOMI, PERRL - ENT Exam ENT Exam: Mucous Membranes Moist - Respiratory Exam Respiratory Exam: Rhonchi (mild) - Cardiovascular Exam Cardiovascular Exam: RRR, +S1, +S2 - Extremities Exam Extremities Exam: Normal Capillary Refill. absent: Pedal Edema - Neurological Exam Neurological Exam: Awake Assessment and Plan (1) Acute respiratory failure with hypoxia and hypercarbia Status: Acute (2) Diabetes mellitus type 2 in obese Status: Acute (3) Hypertension Status: Acute - Assessment and Plan (Free Text) Plan: 12/15 LHCx findings: MID LAD 80% Stenosis EF 30-35% Will require PCI of LAD - plan for near future Due to inability to consent patient not candidate PCI at [facility] Will plan for transfer to [place] on Friday. Continue holding bumex. Continue Cozaar 25 QD Aldactone 12.5 QD Toprol XL 25 QD Further reccs per Dr. Kim to follow <Douglas Kim - Last Filed: 12/17/18 19:41> Objective - Vital Signs/Intake and Output Vital Signs (last 24 hours): Temp Pulse Resp BP Pulse Ox 97.5 F L 79 22 142/59 L 99 12/17/18 16:00 12/17/18 16:00 12/17/18 16:00 12/17/18 16:00 12/17/18 16:00 Intake and Output: 12/17/18 12/18/18 18:59 06:59 Output Total 100 Balance -100 - Medications Medications: Current Medications Acetaminophen (Tylenol 325mg Tab) 650 mg PO Q6 PRN PRN Reason: Pain, Mild (1-3) Acetaminophen (Tylenol 325mg Tab) 650 mg PO Q6 PRN PRN Reason: Fever >100.4 F Acetazolamide (Diamox 250 Mg Tab) 250 mg PO BID [facility] Last Admin: 12/17/18 17:37 Dose: 250 mg Albuterol/Ipratropium (Duoneb 3 Mg/0.5 Mg (3 Ml) Ud) 3 ml INH RQ4 [facility] Last Admin: 12/17/18 15:19 Dose: 3 ml Aspirin (Aspirin Chewable) 81 mg PO DAILY [facility] Last Admin: 12/17/18 08:49 Dose: 81 mg Bumetanide (Bumex) 1 mg IVP DAILY [facility] Last Admin: 12/13/18 09:47 Dose: 1 mg Clopidogrel Bisulfate (Plavix) 75 mg PO DAILY [facility] Last Admin: 12/17/18 08:49 Dose: 75 mg Insulin Detemir (Levemir) 10 units SC [facility] Last Admin: 12/16/18 23:00 Dose: Not Given Insulin Human Regular (Humulin R) 0 units SC ACCU-CHECK [facility]; Protocol Last Admin: 12/17/18 17:37 Dose: Not Given Losartan Potassium (Cozaar) 25 mg PO DAILY [facility] Last Admin: 12/17/18 08:50 Dose: 25 mg Metoprolol Succinate (Toprol Xl) 25 mg PO DAILY [facility] Last Admin: 12/17/18 08:49 Dose: 25 mg Potassium Chloride (Potassium Chloride Oral Soln) 40 meq PO BID [facility] Last Admin: 12/17/18 17:37 Dose: Not Given Risperidone (Risperidone Odt 0.25mg) 0.25 mg PO HS [facility] Last Admin: 12/08/18 21:03 Dose: 0.25 mg Spironolactone (Aldactone) 12.5 mg PO DAILY [facility] Last Admin: 12/17/18 08:49 Dose: 12.5 mg - Labs Labs: 12/16/18 04:55 12/16/18 04:55 PT 13.7 Seconds (9.8-13.1) H 12/10/18 04:35 INR 1.2 12/10/18 04:35 APTT 35.2 Seconds (25.6-37.1) 12/10/18 04:35 Assessment and Plan (1) Acute congestive heart failure Status: Acute (2) Acute respiratory failure with hypoxia and hypercarbia Status: Acute (3) Hypertension Status: Acute (4) Metabolic encephalopathy Status: Acute (5) Pleural effusion Status: Acute (6) Respiratory failure Status: Acute Attending/Attestation - Attestation I have personally seen and examined this patient.: Yes I have fully participated in the care of the patient.: Yes I have reviewed all pertinent clinical information, including history, physical exam and plan: Yes
--- NOTE | 2018-12-16 17:12 | RAD ---
Date of service: 12/16/2018 HISTORY: Pneumonia COMPARISON: 12/10/2018 TECHNIQUE: Chest PA and lateral FINDINGS: LUNGS: No infiltrate. Linear scar or atelectasis lateral to left hilum. PLEURA: No significant pleural effusion identified. No pneumothorax apparent. CARDIOVASCULAR: There is atherosclerotic calcification of the thoracic aorta. Normal cardiac size. AICD. OSSEOUS STRUCTURES: No significant abnormalities. VISUALIZED UPPER ABDOMEN: Normal. OTHER FINDINGS: None. IMPRESSION: No active disease.
[2018-12-16] MEDS: Insulin Detemir 100 Units/ml Inj SC SCH (23:00)
[2018-12-17] MEDS: Insulin Regular 100 units/ml SC SCH ×5 (00:08→22:06)
[2018-12-17] MEDS: Albuterol-Ipratrop 3 mg / 0.5 (3 ml) UD INH SCH ×6 (05:15→23:39)
[2018-12-17] MEDS: Metoprolol Succinate 25 mg XL Tab PO SCH (08:49)
[2018-12-17] MEDS: Potassium Chloride 20 mEq/15 ml LIQ UD PO SCH ×2 (08:51→17:37)
--- NOTE | 2018-12-17 14:59 | PN ---
DATE: 12/17/2018 SUBJECTIVE: The patient seen and examined. Interim events noted. Consults noted and appreciated. Pulmonary and financial aids officer intervention and Cardiology intervention noted and appreciated. Case discussed with waistline joiner and financial aids officer. The patient remains in intensive care unit. Awake, responsive, feels okay. Denies any chest pain or shortness of breath. No specific issue reported by nursing staff. The patient is tentatively scheduled for cardiac cath intervention tomorrow. PHYSICAL EXAMINATION: GENERAL: The patient is in no acute distress. VITAL SIGNS: Stable. HEART: S1 and S2 normal and regular. LUNGS: Good bilateral air exchange. ABDOMEN: Soft, nontender. EXTREMITIES: No edema, no calf swelling. No tenderness. No acute ischemia. CENTRAL NERVOUS SYSTEM: Exam is essentially unchanged. DIAGNOSTIC DATA: Available diagnostic data reviewed. Telemetry monitoring does not show significant arrhythmias. ASSESSMENT AND PLAN: Overall, the patient's general medical condition is stable. Plan as ordered. Nakul Zhang MD
--- NOTE | 2018-12-17 17:24 | CP.CCUPN ---
CCU Subjective - Physician Review Subjective (Free Text): 12/17/18 15:37 The patient was Seen/interviewed and examined by me at the bedside during ICU round, Medical records reviewed and Management issues were discussed and formulated with the house staff. Events reviewed 83 Years old Female with PMHx of HTN, CHF, Diverticulitis, Hypothyroidism, Pneumonia Who initially presents to Emergency department via EMS from skilled nursing for an evaluation of increased lethargy and decreased mentation for 1 day. Patient was recently discharged from [facility] on 11/20/18 status post sepsis, pneumonia, and UTI. She received ABX in skilled nursing and IV fluid challenge in field by paramedics. She was admitted to the ICU for acute Hypercapneic Resp Failure secondary to bilateral Pneumonia and COPD Exacerbation Patient was successfully extubated 12/03 Clinically improving No Vasopressors Awake, Comfortable, NAD Breathing unlabored, on room air O2 sat 95% on 3L nasal cannula Nocturnal BIPAP Afebrile, Completed course of Antibiotics with IV Zosyn Blood 11/22, C/S pos Coagulase negative Staph Most recent Blood C/S negative NSR on the monitor Patient was out of bed to chair this morning She was seen by cardiology, underwent attempted complete heart catheterization yesterday scheduled for plan for transfer to [place] on Friday CCU Objective - Vital Signs / Intake & Output Vital Signs (Last 4 hours): Vital Signs Temp Pulse Resp BP Pulse Ox 12/17/18 16:00 97.5 F L 79 22 142/59 L 99 12/17/18 15:15 68 128/74 98 Intake and Output (Last 8hrs): Intake & Output 12/17/18 12/17/18 12/17/18 06:59 14:59 22:59 Intake Total 0 Output Total 300 Balance -300 Weight 200 lb Intake: IV 0 Output: Urine 300 Urethral (Arias) 300 Other: # Bowel Movements 1 - Physical Exam Head: Positive for: Atraumatic, Normocephalic Pupils: Positive for: PERRL Conjunctiva: Positive for: Normal. Negative for: Injected, Icteric Ears: Negative for: Erythema Mouth: Positive for: Moist Mucous Membranes Nose (External): Positive for: Atraumatic Nose (Internal): Positive for: Normal Inspection. Negative for: No Active Bleeding Neck: Positive for: Normal Range of Motion, Trachea Midline. Negative for: JVD Respiratory/Chest: Positive for: Rales, Rhonchi. Negative for: Clear to Auscultation, Respiratory Distress, Accessory Muscle Use, Wheezes Cardiovascular: Positive for: Regular Rate and Rhythm Abdomen: Positive for: Distention, Normal Bowel Sounds. Negative for: Tenderness Upper Extremity: Positive for: Normal Inspection, NORMAL PULSES Lower Extremity: Positive for: Normal Inspection, Edema. Negative for: CALF TENDERNESS Neurological: Positive for: Other (on ventilator, sedated) Psychiatric: Positive for: Alert, Oriented x 3, Normal Concentration, Normal Affect. Negative for: Anxious, Agitated - Medications Active Medications: Active Medications Generic Name Dose Route Start Last Admin Trade Name Freq PRN Reason Stop Dose Admin Acetaminophen 650 mg 12/07/18 20:00 Tylenol 325mg Tab PO Q6 PRN Pain, Mild (1-3) Acetaminophen 650 mg 12/07/18 20:00 Tylenol 325mg Tab PO Q6 PRN Fever >100.4 F Acetazolamide 250 mg 12/07/18 17:00 12/17/18 08:49 Diamox 250 Mg Tab PO 250 mg BID [facility] Administration Albuterol/Ipratropium 3 ml 11/25/18 16:00 12/17/18 15:19 Duoneb 3 Mg/0.5 Mg (3 Ml) Ud INH 3 ml RQ4 [facility] Administration Aspirin 81 mg 12/17/18 09:00 12/17/18 08:49 Aspirin Chewable PO 81 mg DAILY [facility] Administration Bumetanide 1 mg 12/09/18 09:00 12/13/18 09:47 Bumex IVP 1 mg DAILY [facility] Administration Clopidogrel Bisulfate 75 mg 12/17/18 09:00 12/17/18 08:49 Plavix PO 75 mg DAILY [facility] Administration Insulin Detemir 10 units 11/22/18 22:00 12/16/18 23:00 Levemir SC Not Given HS [facility] Insulin Human Regular 0 units 11/23/18 12:00 12/17/18 06:02 Humulin R SC Not Given ACCU-CHECK [facility] Protocol Losartan Potassium 25 mg 11/23/18 09:00 12/17/18 08:50 Cozaar PO 25 mg DAILY [facility] Administration Metoprolol Succinate 25 mg 12/07/18 12:45 12/17/18 08:49 Toprol Xl PO 25 mg DAILY [facility] Administration Potassium Chloride 40 meq 12/06/18 09:00 12/17/18 08:51 Potassium Chloride Oral Soln PO 40 meq BID [facility] Administration Risperidone 0.25 mg 12/07/18 22:00 12/08/18 21:03 Risperidone Odt 0.25mg PO 0.25 mg HS [facility] Administration Spironolactone 12.5 mg 11/23/18 09:00 12/17/18 08:49 Aldactone PO 12.5 mg DAILY [facility] Administration - Patient Studies Lab Studies: Lab Studies 12/17/18 12/17/18 12/17/18 Range/Units 16:51 11:34 05:57 POC Glucose (mg/dL) 79 169 H 127 H (65-110) mg/dL 12/16/18 Range/Units 21:03 POC Glucose (mg/dL) 112 H (65-110) mg/dL Laboratory Results - last 24 hr 12/16/18 12/17/18 12/17/18 21:03 05:57 11:34 POC Glucose (mg/dL) 112 H 127 H 169 H 12/17/18 16:51 POC Glucose (mg/dL) 79 Fingerstick Blood Sugar Results: 127 Critical Care Progress Note - Nutrition Nutrition: Nutrition Category Date Time Status Dysphagia/Modified Consistency Diet [DIET] Diets 12/16/18 Breakfast Active Assessment/Plan (1) Acute congestive heart failure Current Visit: Yes Status: Acute Comment: NSR on the monitor CXR Stable Bilateral pulmonary vascular congestions, small effusion, Basal atelectasis Patient on Lasix 60 mg IV daily and Aldactone 12.5 mg PO DAILY, She received the Lasix this morning, with good urine output Breathing unlabored, on room air O2 sat 95% on 3L nasal cannula Nocturnal BIPAP (2) Acute respiratory failure with hypoxia and hypercarbia Current Visit: Yes Status: Acute Priority: High Comment: Successfully extubated Breathing unlabored, on room air O2 sat 95% on 3L nasal cannula Nocturnal BIPAP OOb to chair (3) Bacteremia Current Visit: Yes Status: Resolved Priority: High Comment: Afebrile Completed IV Zosyn Blood C/S pos Coagulase negative Staph IV Vanco was held on 11/30 due to elevated drug level Most recent Blood C/S negative (4) Metabolic encephalopathy Current Visit: Yes Status: Acute Comment: Multifactorial, resolving (5) Sepsis Current Visit: Yes Status: Resolved Priority: High
--- NOTE | 2018-12-17 19:14 | CP.PCM.PN ---
Subjective - Date & Time of Evaluation Date of Evaluation: 12/17/18 Time of Evaluation: 19:11 - Subjective Subjective: Pierce Yo DO PGY1 - Cardiology Note for Dr. Kim Patient was seen and evaluated at bedside this morning; Patient still lethargic Will call daughter/ POA today for consent regarding LHC at [place]. Objective - Vital Signs/Intake and Output Vital Signs (last 24 hours): Temp Pulse Resp BP Pulse Ox 97.5 F L 79 22 142/59 L 99 12/17/18 16:00 12/17/18 16:00 12/17/18 16:00 12/17/18 16:00 12/17/18 16:00 Intake and Output: 12/17/18 12/18/18 18:59 06:59 Output Total 100 Balance -100 - Medications Medications: Current Medications Acetaminophen (Tylenol 325mg Tab) 650 mg PO Q6 PRN PRN Reason: Pain, Mild (1-3) Acetaminophen (Tylenol 325mg Tab) 650 mg PO Q6 PRN PRN Reason: Fever >100.4 F Acetazolamide (Diamox 250 Mg Tab) 250 mg PO BID ON LICENSE OF [facility] Last Admin: 12/17/18 17:37 Dose: 250 mg Albuterol/Ipratropium (Duoneb 3 Mg/0.5 Mg (3 Ml) Ud) 3 ml INH RQ4 ON LICENSE OF [facility] Last Admin: 12/17/18 15:19 Dose: 3 ml Aspirin (Aspirin Chewable) 81 mg PO DAILY [facility] Last Admin: 12/17/18 08:49 Dose: 81 mg Bumetanide (Bumex) 1 mg IVP DAILY [facility] Last Admin: 12/13/18 09:47 Dose: 1 mg Clopidogrel Bisulfate (Plavix) 75 mg PO DAILY [facility] Last Admin: 12/17/18 08:49 Dose: 75 mg Insulin Detemir (Levemir) 10 units SC HS ON [facility] OF [facility] Last Admin: 12/16/18 23:00 Dose: Not Given Insulin Human Regular (Humulin R) 0 units SC ACCU-CHECK ON LICENSE OF [facility]; Protocol Last Admin: 12/17/18 17:37 Dose: Not Given Losartan Potassium (Cozaar) 25 mg PO DAILY [facility] Last Admin: 12/17/18 08:50 Dose: 25 mg Metoprolol Succinate (Toprol Xl) 25 mg PO DAILY [facility] Last Admin: 12/17/18 08:49 Dose: 25 mg Potassium Chloride (Potassium Chloride Oral Soln) 40 meq PO BID ON [facility] OF [facility] Last Admin: 12/17/18 17:37 Dose: Not Given Risperidone (Risperidone Odt 0.25mg) 0.25 mg PO HS [facility] OF [facility] Last Admin: 12/08/18 21:03 Dose: 0.25 mg Spironolactone (Aldactone) 12.5 mg PO DAILY [facility] Last Admin: 12/17/18 08:49 Dose: 12.5 mg - Labs Labs: 12/16/18 04:55 12/16/18 04:55 PT 13.7 Seconds (9.8-13.1) H 12/10/18 04:35 INR 1.2 12/10/18 04:35 APTT 35.2 Seconds (25.6-37.1) 12/10/18 04:35 - Constitutional Appears: Well, Non-toxic, No Acute Distress - Head Exam Head Exam: ATRAUMATIC, NORMOCEPHALIC - Eye Exam Eye Exam: EOMI, PERRL - ENT Exam ENT Exam: Mucous Membranes Moist - Respiratory Exam Respiratory Exam: Rhonchi (mild) - Cardiovascular Exam Cardiovascular Exam: RRR, +S1, +S2 - Extremities Exam Extremities Exam: Normal Capillary Refill. absent: Pedal Edema - Neurological Exam Neurological Exam: Awake Assessment and Plan (1) Acute respiratory failure with hypoxia and hypercarbia Status: Acute (2) Diabetes mellitus type 2 in obese Status: Acute (3) Hypertension Status: Acute - Assessment and Plan (Free Text) Plan: Will require PCI of LAD - plan for near future Will call daughter/POA regarding consent for repeat procedure at [place] Due to inability to consent patient not candidate PCI at [facility] 12/15 LHCx findings: MID LAD 80% Stenosis EF 30-35% Continue holding bumex. Continue Cozaar 25 QD Aldactone 12.5 QD Toprol XL 25 QD Further reccs per Dr. Kim to follow
[2018-12-17] MEDS: Insulin Detemir 100 Units/ml Inj SC SCH (22:04)
[2018-12-18] MEDS: Albuterol-Ipratrop 3 mg / 0.5 (3 ml) UD INH SCH ×5 (03:29→19:24)
[2018-12-18 05:15] LABS: HEMOGLOBIN 11.3 g/dL (12.0-16.0); MEAN CELL VOLUME 88.3 fl (81.0-99.0); MEAN CORPUSCULAR HEMOGLOBIN 27.7 pg (27.0-31.0); MEAN CORPUSCULAR HGB CONC 31.4 g/dL (33.0-37.0); RBC 4.1 Mil/uL (3.80-5.20); RED CELL DISTRIBUTION WIDTH 20.5 % (11.5-14.5); WHITE BLOOD COUNT 4.7 K/uL (4.8-10.8)
[2018-12-18 05:34] LABS: ALBUMIN 3.3 g/dL (3.5-5.0); ALT/SGPT 19 U/L (9-52); AST/SGOT 23 U/L (14-36); BLOOD UREA NITROGEN 17 mg/dl (7-17); CALCIUM 9.5 mg/dL (8.4-10.2); GFR NON-AFRICAN AMERICAN > 60
[2018-12-18] MEDS: Insulin Regular 100 units/ml SC SCH ×4 (08:09→22:22)
--- NOTE | 2018-12-18 08:48 | CP.PCM.PN ---
<Nelli Yo - Last Filed: 12/18/18 08:52> Subjective - Date & Time of Evaluation Date of Evaluation: 12/18/18 Time of Evaluation: 07:10 - Subjective Subjective: Patient seen and examined this morning at bedside with Dr. Zhang. NAD, No acute event overnight, comfortably watching TV, verbally responsive and follow commands. Patient denies any chest pain, SOB, abdominal pain or dysuria. Amaral in placed, decreased UO: will remove amaral for now Possible PCI at at [place] once consent obtained, plan as per Dr. Kim Objective - Vital Signs/Intake and Output Vital Signs (last 24 hours): Temp Pulse Resp BP Pulse Ox 98.2 F 80 18 131/79 93 L 12/18/18 08:23 12/18/18 08:23 12/18/18 08:23 12/18/18 08:23 12/18/18 08:23 Intake and Output: 12/18/18 12/18/18 06:59 18:59 Intake Total 0 Output Total 400 Balance -400 - Medications Medications: Current Medications Acetaminophen (Tylenol 325mg Tab) 650 mg PO Q6 PRN PRN Reason: Pain, Mild (1-3) Acetaminophen (Tylenol 325mg Tab) 650 mg PO Q6 PRN PRN Reason: Fever >100.4 F Acetazolamide (Diamox 250 Mg Tab) 250 mg PO BID [facility] Last Admin: 12/17/18 17:37 Dose: 250 mg Albuterol/Ipratropium (Duoneb 3 Mg/0.5 Mg (3 Ml) Ud) 3 ml INH RQ4 [facility] Last Admin: 12/18/18 08:03 Dose: 3 ml Aspirin (Aspirin Chewable) 81 mg PO DAILY [facility] Last Admin: 12/17/18 08:49 Dose: 81 mg Bumetanide (Bumex) 1 mg IVP DAILY [facility] Last Admin: 12/13/18 09:47 Dose: 1 mg Clopidogrel Bisulfate (Plavix) 75 mg PO DAILY [facility] Last Admin: 12/17/18 08:49 Dose: 75 mg Insulin Detemir (Levemir) 10 units SC HS [facility] Last Admin: 12/17/18 22:04 Dose: 10 units Insulin Human Regular (Humulin R) 0 units SC ACCU-CHECK [facility]; Protocol Last Admin: 12/18/18 08:09 Dose: Not Given Losartan Potassium (Cozaar) 25 mg PO DAILY [facility] Last Admin: 12/17/18 08:50 Dose: 25 mg Metoprolol Succinate (Toprol Xl) 25 mg PO DAILY [facility] Last Admin: 12/17/18 08:49 Dose: 25 mg Potassium Chloride (Potassium Chloride Oral Soln) 40 meq PO BID [facility] Last Admin: 12/17/18 17:37 Dose: Not Given Risperidone (Risperidone Odt 0.25mg) 0.25 mg PO HS [facility] Last Admin: 12/08/18 21:03 Dose: 0.25 mg Spironolactone (Aldactone) 12.5 mg PO DAILY [facility] Last Admin: 12/17/18 08:49 Dose: 12.5 mg - Labs Labs: 12/18/18 04:20 12/18/18 04:20 PT 13.7 Seconds (9.8-13.1) H 12/10/18 04:35 INR 1.2 12/10/18 04:35 APTT 35.2 Seconds (25.6-37.1) 12/10/18 04:35 - Constitutional Appears: No Acute Distress - Head Exam Head Exam: NORMAL INSPECTION - Eye Exam Eye Exam: Normal appearance - ENT Exam ENT Exam: Mucous Membranes Moist - Neck Exam Neck Exam: Normal Inspection - Respiratory Exam Respiratory Exam: NORMAL BREATHING PATTERN (Course BS). absent: Chest Wall Tenderness, Rhonchi, Wheezes, Respiratory Distress - Cardiovascular Exam Cardiovascular Exam: REGULAR RHYTHM, +S1, +S2 - GI/Abdominal Exam GI & Abdominal Exam: Soft, Normal Bowel Sounds. absent: Tenderness - Extremities Exam Extremities Exam: Normal Inspection - Back Exam Back Exam: NORMAL INSPECTION - Neurological Exam Neurological Exam: Alert, Awake - Psychiatric Exam Psychiatric exam: Normal Affect - Skin Skin Exam: Normal Color Assessment and Plan - Assessment and Plan (Free Text) Assessment: A/P: 83 y/o female with PMHx of HTN, CHF (w/ pacemaker), DM, hypothyroidism, admitted due to recurrent hypercapneic respiratory failure. Patient brought to ED on 11/22/18 for LATONIA due to AMS, intubated and admitted to ICU. Successfully extubated on 12/03/18. Recurrent hypercapneic respiratory failure s/p intubation and on MV on 11/22/18, ext 12/03/18 -Improved -hold risperadone -pulmonary on board -c/w BIPAPA at night and NC O2 as needed -CXR 12/16: No active disease Encephalopathy, AMS -Improving -Likely 2/2 to hypercapnia, respiratory failure -waxing and waning based on CO levels -Ct Head no acute findings CHF, pacemaker, chronic -systolic dysfunction (one echo 10/27) -Cardiology on board; meds adjusted -S/p Cardiac Cath by Dr. Kim, MID LAD 80% Stenosis, EF 30-35%, PCI recommended -Continue Cozaar, Aldectome and Toprol as per Vascular -Hold Bumex due to hypernatremia -Possible PCI of LAD today Pleural Infiltrate/effusion/HCAP -effusion 2/2 to CHF, on diuretic -S/p Zosyn and Vanco -CXR 12/16: No active disease Bacteremia, sepsis -resolved -Blood cx 11/22/18: Coag neg Staph -BCx 11/24 neg -s/p tx with IV abx, ID on board Anemia, Normocytic -likely acute on chronic -No acute source of GI bleed -stable DVT prophylx: SCD Cont to work with physical therapy to work on gait and strengthening Case discussed with Dr. Zhang <Nakul Zhang - Last Filed: 12/19/18 19:28> Objective - Vital Signs/Intake and Output Vital Signs (last 24 hours): Temp Pulse Resp BP Pulse Ox 97.7 F 86 18 144/83 94 L 12/19/18 16:31 12/19/18 16:31 12/19/18 16:31 12/19/18 16:31 12/19/18 16:31 - Medications Medications: Current Medications Acetaminophen (Tylenol 325mg Tab) 650 mg PO Q6 PRN PRN Reason: Pain, Mild (1-3) Acetaminophen (Tylenol 325mg Tab) 650 mg PO Q6 PRN PRN Reason: Fever >100.4 F Acetazolamide (Diamox 250 Mg Tab) 250 mg PO BID [facility] Last Admin: 12/19/18 16:24 Dose: Not Given Albuterol/Ipratropium (Duoneb 3 Mg/0.5 Mg (3 Ml) Ud) 3 ml INH RQ4 [facility] Last Admin: 12/19/18 15:16 Dose: 3 ml Aspirin (Aspirin Chewable) 81 mg PO DAILY [facility] Last Admin: 12/19/18 09:57 Dose: 81 mg Bumetanide (Bumex) 1 mg IVP DAILY [facility] Last Admin: 12/13/18 09:47 Dose: 1 mg Clopidogrel Bisulfate (Plavix) 75 mg PO DAILY [facility] Last Admin: 12/19/18 09:57 Dose: 75 mg Insulin Detemir (Levemir) 10 units SC [facility] Last Admin: 12/18/18 22:21 Dose: 10 units Insulin Human Regular (Humulin R) 0 units SC ACCU-CHECK [facility]; Protocol Last Admin: 12/19/18 16:23 Dose: Not Given Losartan Potassium (Cozaar) 25 mg PO DAILY [facility] Last Admin: 12/19/18 09:57 Dose: 25 mg Metoprolol Succinate (Toprol Xl) 25 mg PO DAILY [facility] Last Admin: 12/19/18 09:57 Dose: 25 mg Potassium Chloride (Potassium Chloride Oral Soln) 40 meq PO BID [facility] Last Admin: 12/19/18 16:23 Dose: Not Given Risperidone (Risperidone Odt 0.25mg) 0.25 mg PO [facility] Last Admin: 12/08/18 21:03 Dose: 0.25 mg Spironolactone (Aldactone) 12.5 mg PO DAILY [facility] Last Admin: 12/19/18 09:57 Dose: 12.5 mg - Labs Labs: 12/18/18 04:20 12/18/18 04:20 PT 13.7 Seconds (9.8-13.1) H 12/10/18 04:35 INR 1.2 12/10/18 04:35 APTT 35.2 Seconds (25.6-37.1) 12/10/18 04:35 Assessment and Plan - Assessment and Plan (Free Text) Assessment: Patient was personally seen and examined by me in rounds with residents. Available labs and diagnostic data reviewed. Case, Patient's condition and management plan discussed with residents in rounds. Agree with resident's progress note. Plan: As ordered.
[2018-12-18] MEDS: Metoprolol Succinate 25 mg XL Tab PO SCH (09:06)
[2018-12-18] MEDS: Potassium Chloride 20 mEq/15 ml LIQ UD PO SCH ×2 (09:08→17:12)
--- NOTE | 2018-12-18 11:44 | CP.PCM.PN ---
Subjective - Date & Time of Evaluation Date of Evaluation: 12/18/18 Time of Evaluation: 11:45 - Subjective Subjective: NO APPARENT DISTRESS NO SOB TRANSFERRED OUT OF ICU TO [facility] Objective - Vital Signs/Intake and Output Vital Signs (last 24 hours): Temp Pulse Resp BP Pulse Ox 98.2 F 80 18 131/79 93 L 12/18/18 08:23 12/18/18 08:23 12/18/18 08:23 12/18/18 08:23 12/18/18 08:23 Intake and Output: 12/18/18 12/18/18 06:59 18:59 Intake Total 0 Output Total 400 Balance -400 - Medications Medications: Current Medications Acetaminophen (Tylenol 325mg Tab) 650 mg PO Q6 PRN PRN Reason: Pain, Mild (1-3) Acetaminophen (Tylenol 325mg Tab) 650 mg PO Q6 PRN PRN Reason: Fever >100.4 F Acetazolamide (Diamox 250 Mg Tab) 250 mg PO BID [facility] Last Admin: 12/18/18 09:08 Dose: 250 mg Albuterol/Ipratropium (Duoneb 3 Mg/0.5 Mg (3 Ml) Ud) 3 ml INH RQ4 [facility] Last Admin: 12/18/18 11:13 Dose: 3 ml Aspirin (Aspirin Chewable) 81 mg PO DAILY [facility] Last Admin: 12/18/18 09:07 Dose: 81 mg Bumetanide (Bumex) 1 mg IVP DAILY [facility] Last Admin: 12/13/18 09:47 Dose: 1 mg Clopidogrel Bisulfate (Plavix) 75 mg PO DAILY [facility] Last Admin: 12/18/18 09:06 Dose: 75 mg Insulin Detemir (Levemir) 10 units SC HS [facility] Last Admin: 12/17/18 22:04 Dose: 10 units Insulin Human Regular (Humulin R) 0 units SC ACCU-CHECK [facility]; Protocol Last Admin: 12/18/18 08:09 Dose: Not Given Losartan Potassium (Cozaar) 25 mg PO DAILY [facility] Last Admin: 12/18/18 09:08 Dose: 25 mg Metoprolol Succinate (Toprol Xl) 25 mg PO DAILY [facility] Last Admin: 12/18/18 09:06 Dose: 25 mg Potassium Chloride (Potassium Chloride Oral Soln) 40 meq PO BID [facility] Last Admin: 12/18/18 09:08 Dose: 40 meq Risperidone (Risperidone Odt 0.25mg) 0.25 mg PO [facility] Last Admin: 12/08/18 21:03 Dose: 0.25 mg Spironolactone (Aldactone) 12.5 mg PO DAILY [facility] Last Admin: 12/18/18 09:06 Dose: 12.5 mg - Labs Labs: 12/18/18 04:20 12/18/18 04:20 PT 13.7 Seconds (9.8-13.1) H 12/10/18 04:35 INR 1.2 12/10/18 04:35 APTT 35.2 Seconds (25.6-37.1) 12/10/18 04:35 - Constitutional Appears: No Acute Distress - Head Exam Head Exam: ATRAUMATIC, NORMAL INSPECTION, NORMOCEPHALIC - Eye Exam Eye Exam: EOMI, Normal appearance, PERRL Pupil Exam: NORMAL ACCOMODATION, PERRL - ENT Exam ENT Exam: Mucous Membranes Moist, Normal Exam - Neck Exam Neck Exam: Full ROM, Normal Inspection. absent: Lymphadenopathy - Respiratory Exam Respiratory Exam: Prolonged Expiratory Phase, NORMAL BREATHING PATTERN - Cardiovascular Exam Cardiovascular Exam: REGULAR RHYTHM, +S1, +S2. absent: Murmur - GI/Abdominal Exam GI & Abdominal Exam: Soft, Normal Bowel Sounds. absent: Tenderness - Rectal Exam Rectal Exam: NORMAL INSPECTION - Extremities Exam Extremities Exam: Full ROM, Normal Capillary Refill, Normal Inspection. absent: Joint Swelling, Pedal Edema - Back Exam Back Exam: NORMAL INSPECTION - Neurological Exam Neurological Exam: Alert, Awake, CN II-XII Intact - Psychiatric Exam Psychiatric exam: Normal Affect, Normal Mood - Skin Skin Exam: Dry, Intact, Normal Color, Warm Assessment and Plan - Assessment and Plan (Free Text) Assessment: HYPERCAPNEIC RESP FAILURE--IMPROVED CORONARY ARTERY DZ Plan: CONTINUE CURRENT RX FOR ANGIOPLASTY
--- NOTE | 2018-12-18 14:05 | CP.PCM.PN ---
Subjective - Date & Time of Evaluation Date of Evaluation: 12/18/18 Time of Evaluation: 08:00 - Subjective Subjective: afeb off antibiotics in no distress Objective - Vital Signs/Intake and Output Vital Signs (last 24 hours): Temp Pulse Resp BP Pulse Ox 98.5 F 81 18 128/78 92 L 12/18/18 12:17 12/18/18 12:17 12/18/18 12:17 12/18/18 12:17 12/18/18 12:17 Intake and Output: 12/18/18 12/18/18 06:59 18:59 Intake Total 0 Output Total 400 Balance -400 - Medications Medications: Current Medications Acetaminophen (Tylenol 325mg Tab) 650 mg PO Q6 PRN PRN Reason: Pain, Mild (1-3) Acetaminophen (Tylenol 325mg Tab) 650 mg PO Q6 PRN PRN Reason: Fever >100.4 F Acetazolamide (Diamox 250 Mg Tab) 250 mg PO BID [facility] Last Admin: 12/18/18 09:08 Dose: 250 mg Albuterol/Ipratropium (Duoneb 3 Mg/0.5 Mg (3 Ml) Ud) 3 ml INH RQ4 [facility] Last Admin: 12/18/18 11:13 Dose: 3 ml Aspirin (Aspirin Chewable) 81 mg PO DAILY [facility] Last Admin: 12/18/18 09:07 Dose: 81 mg Bumetanide (Bumex) 1 mg IVP DAILY [facility] Last Admin: 12/13/18 09:47 Dose: 1 mg Clopidogrel Bisulfate (Plavix) 75 mg PO DAILY [facility] Last Admin: 12/18/18 09:06 Dose: 75 mg Insulin Detemir (Levemir) 10 units SC HS [facility] Last Admin: 12/17/18 22:04 Dose: 10 units Insulin Human Regular (Humulin R) 0 units SC ACCU-CHECK [facility]; Protocol Last Admin: 12/18/18 11:48 Dose: 2 u Losartan Potassium (Cozaar) 25 mg PO DAILY [facility] Last Admin: 12/18/18 09:08 Dose: 25 mg Metoprolol Succinate (Toprol Xl) 25 mg PO DAILY [facility] Last Admin: 12/18/18 09:06 Dose: 25 mg Potassium Chloride (Potassium Chloride Oral Soln) 40 meq PO BID [facility] Last Admin: 12/18/18 09:08 Dose: 40 meq Risperidone (Risperidone Odt 0.25mg) 0.25 mg PO HS [facility] Last Admin: 12/08/18 21:03 Dose: 0.25 mg Spironolactone (Aldactone) 12.5 mg PO DAILY [facility] Last Admin: 12/18/18 09:06 Dose: 12.5 mg - Labs Labs: 12/18/18 04:20 12/18/18 04:20 PT 13.7 Seconds (9.8-13.1) H 12/10/18 04:35 INR 1.2 12/10/18 04:35 APTT 35.2 Seconds (25.6-37.1) 12/10/18 04:35 - Constitutional Appears: Non-toxic, Chronically Ill - Head Exam Head Exam: NORMOCEPHALIC - Eye Exam Eye Exam: absent: Scleral icterus Pupil Exam: NORMAL ACCOMODATION - ENT Exam ENT Exam: Mucous Membranes Dry, Normal External Ear Exam - Neck Exam Neck Exam: absent: Lymphadenopathy - Respiratory Exam Respiratory Exam: Decreased Breath Sounds, Rhonchi - Cardiovascular Exam Cardiovascular Exam: REGULAR RHYTHM, +S1, +S2 - GI/Abdominal Exam GI & Abdominal Exam: Distended, Soft. absent: Tenderness - Rectal Exam Rectal Exam: Deferred - Exam Exam: NORMAL INSPECTION - Extremities Exam Extremities Exam: Pedal Edema - Back Exam Back Exam: absent: CVA tenderness (L), CVA tenderness (R) - Neurological Exam Neurological Exam: Alert, Awake, CN II-XII Intact Assessment and Plan (1) Acute respiratory failure with hypoxia and hypercarbia Status: Acute (2) Bacteremia Status: Resolved (3) Diabetes mellitus type 2 in obese Status: Acute (4) Pleural effusion Status: Acute (5) Respiratory failure Status: Acute - Assessment and Plan (Free Text) Assessment: cont rx as per Dr Reeves
[2018-12-18] MEDS: Insulin Detemir 100 Units/ml Inj SC SCH (22:21)
[2018-12-19] MEDS: Albuterol-Ipratrop 3 mg / 0.5 (3 ml) UD INH SCH ×6 (00:04→20:09)
[2018-12-19] MEDS: Insulin Regular 100 units/ml SC SCH ×4 (08:56→22:39)
--- NOTE | 2018-12-19 09:27 | PN ---
DATE: 12/19/2018 SUBJECTIVE: The patient seen and examined. Interim events noted. Consults noted and appreciated. Pulmonology and Infectious Disease followup and intervention noted and appreciated. The patient remains in progressive care unit on telemetry monitoring. Feels okay. Denies any complaint. No chest pain or shortness of breath. PHYSICAL EXAMINATION: GENERAL: The patient is in no acute distress. VITAL SIGNS: Stable. HEART: S1, S2. Normal and regular. LUNGS: Good bilateral air exchange. ABDOMEN: Soft, nontender. EXTREMITIES: No calf swelling or tenderness. No acute ischemia. CENTRAL NERVOUS SYSTEM: Essentially unchanged. DIAGNOSTIC DATA: Available diagnostic data reviewed. Telemetry monitoring does not show significant arrhythmias. Overall, the patient's general medical condition is stable. The patient is awaiting cardiac intervention. PLAN : As ordered. Plan discussed with the patient and nursing staff. Nakul Zhang MD
[2018-12-19] MEDS: Metoprolol Succinate 25 mg XL Tab PO SCH (09:57)
[2018-12-19] MEDS: Potassium Chloride 20 mEq/15 ml LIQ UD PO SCH ×2 (09:57→16:23)
--- NOTE | 2018-12-19 11:42 | CP.PCM.PN ---
Subjective - Date & Time of Evaluation Date of Evaluation: 12/19/18 Time of Evaluation: 11:43 - Subjective Subjective: SLEEPING PEACEFULLY NO APPARENT DISTRESS EASILY AROUSABLE Objective - Vital Signs/Intake and Output Vital Signs (last 24 hours): Temp Pulse Resp BP Pulse Ox 97.9 F 82 18 127/73 93 L 12/19/18 08:01 12/19/18 08:01 12/19/18 08:01 12/19/18 08:01 12/19/18 08:01 - Medications Medications: Current Medications Acetaminophen (Tylenol 325mg Tab) 650 mg PO Q6 PRN PRN Reason: Pain, Mild (1-3) Acetaminophen (Tylenol 325mg Tab) 650 mg PO Q6 PRN PRN Reason: Fever >100.4 F Acetazolamide (Diamox 250 Mg Tab) 250 mg PO BID [facility] Last Admin: 12/19/18 09:57 Dose: 250 mg Albuterol/Ipratropium (Duoneb 3 Mg/0.5 Mg (3 Ml) Ud) 3 ml INH RQ4 [facility] Last Admin: 12/19/18 11:15 Dose: 3 ml Aspirin (Aspirin Chewable) 81 mg PO DAILY [facility] Last Admin: 12/19/18 09:57 Dose: 81 mg Bumetanide (Bumex) 1 mg IVP DAILY [facility] Last Admin: 12/13/18 09:47 Dose: 1 mg Clopidogrel Bisulfate (Plavix) 75 mg PO DAILY [facility] Last Admin: 12/19/18 09:57 Dose: 75 mg Insulin Detemir (Levemir) 10 units SC HS [facility] Last Admin: 12/18/18 22:21 Dose: 10 units Insulin Human Regular (Humulin R) 0 units SC ACCU-CHECK [facility]; Protocol Last Admin: 12/19/18 08:56 Dose: Not Given Losartan Potassium (Cozaar) 25 mg PO DAILY [facility] Last Admin: 12/19/18 09:57 Dose: 25 mg Metoprolol Succinate (Toprol Xl) 25 mg PO DAILY [facility] Last Admin: 12/19/18 09:57 Dose: 25 mg Potassium Chloride (Potassium Chloride Oral Soln) 40 meq PO BID [facility] Last Admin: 12/19/18 09:57 Dose: 40 meq Risperidone (Risperidone Odt 0.25mg) 0.25 mg PO [facility] Last Admin: 01/29/19 21:03 Dose: 0.25 mg Spironolactone (Aldactone) 12.5 mg PO DAILY [facility] Last Admin: 12/19/18 09:57 Dose: 12.5 mg - Labs Labs: 12/18/18 04:20 12/18/18 04:20 PT 13.7 Seconds (9.8-13.1) H 12/10/18 04:35 INR 1.2 12/10/18 04:35 APTT 35.2 Seconds (25.6-37.1) 12/10/18 04:35 - Constitutional Appears: No Acute Distress - Head Exam Head Exam: ATRAUMATIC, NORMAL INSPECTION, NORMOCEPHALIC - Eye Exam Eye Exam: EOMI, Normal appearance, PERRL Pupil Exam: NORMAL ACCOMODATION, PERRL - ENT Exam ENT Exam: Mucous Membranes Moist, Normal Exam - Neck Exam Neck Exam: Full ROM, Normal Inspection. absent: Lymphadenopathy - Respiratory Exam Respiratory Exam: Decreased Breath Sounds, Prolonged Expiratory Phase, NORMAL BREATHING PATTERN - Cardiovascular Exam Cardiovascular Exam: REGULAR RHYTHM, +S1, +S2. absent: Murmur - GI/Abdominal Exam GI & Abdominal Exam: Soft, Normal Bowel Sounds. absent: Tenderness - Rectal Exam Rectal Exam: NORMAL INSPECTION - Extremities Exam Extremities Exam: Full ROM, Normal Capillary Refill, Normal Inspection. absent: Joint Swelling, Pedal Edema - Back Exam Back Exam: NORMAL INSPECTION - Neurological Exam Neurological Exam: Alert, Awake, CN II-XII Intact - Psychiatric Exam Psychiatric exam: Flat Affect - Skin Skin Exam: Dry, Intact, Normal Color, Warm Assessment and Plan - Assessment and Plan (Free Text) Assessment: COPD HYPERCAPNIEC RESP FAILURE ASHD CHF Plan: AWAIT CARDIOLOGY INTERVENTION RE-REVASCULARIZATION
[2018-12-19] MEDS: Insulin Detemir 100 Units/ml Inj SC SCH (21:15)
[2018-12-20] MEDS: Albuterol-Ipratrop 3 mg / 0.5 (3 ml) UD INH SCH ×7 (00:14→23:30)
--- NOTE | 2018-12-20 07:15 | PN ---
DATE: 12/20/2018 SUBJECTIVE: The patient seen and examined. Interim events noted. Consults noted and appreciated. Pulmonary followup and intervention noted and appreciated. The patient remains in progressive care unit with telemetry monitoring. The patient is sleeping, arousable, feels okay. Denies any specific complaint. Nursing staff reported patient pulled out PICC line and were instructed to start peripheral IV until new PICC line can be inserted. PHYSICAL EXAMINATION: GENERAL: The patient is in no acute distress. VITAL SIGNS: Stable. HEART: S1, S2. Normal and regular. LUNGS: Good bilateral air exchange. ABDOMEN: Soft, nontender. EXTREMITIES: No edema, no calf swelling. No tenderness. No acute ischemia. CENTRAL NERVOUS SYSTEM: Essentially unchanged. DIAGNOSTIC DATA: Available diagnostic data reviewed. Telemetry monitoring does not show significant arrhythmias. ASSESSMENT AND PLAN: Overall, the patient's general medical condition is stable. Plan as ordered. Nakul Zhang MD
[2018-12-20 07:30] LABS: HEMOGLOBIN 11.2 g/dL (12.0-16.0); MEAN CELL VOLUME 86.4 fl (81.0-99.0); MEAN CORPUSCULAR HEMOGLOBIN 28.2 pg (27.0-31.0); MEAN CORPUSCULAR HGB CONC 32.6 g/dL (33.0-37.0); RBC 3.98 Mil/uL (3.80-5.20); WHITE BLOOD COUNT 5.2 K/uL (4.8-10.8)
[2018-12-20 08:17] LABS: ALBUMIN 3.1 g/dL (3.5-5.0); ALT/SGPT 20 U/L (9-52); AST/SGOT 23 U/L (14-36); BLOOD UREA NITROGEN 12 mg/dl (7-17); GFR NON-AFRICAN AMERICAN > 60
[2018-12-20] MEDS: Insulin Regular 100 units/ml SC SCH ×4 (09:10→23:16)
[2018-12-20] MEDS: Metoprolol Succinate 25 mg XL Tab PO SCH (09:11)
[2018-12-20] MEDS: Potassium Chloride 20 mEq/15 ml LIQ UD PO SCH (09:11)
[2018-12-20] MEDS: Insulin Detemir 100 Units/ml Inj SC SCH (21:00)
[2018-12-21] MEDS: Albuterol-Ipratrop 3 mg / 0.5 (3 ml) UD INH SCH ×3 (04:57→12:00)
[2018-12-21 05:07] VITALS: RESP 18
[2018-12-21 05:21] LABS: HEMOGLOBIN 10.6 g/dL (12.0-16.0); MEAN CELL VOLUME 87.2 fl (81.0-99.0); MEAN CORPUSCULAR HEMOGLOBIN 28.4 pg (27.0-31.0); MEAN CORPUSCULAR HGB CONC 32.5 g/dL (33.0-37.0); RBC 3.73 Mil/uL (3.80-5.20); RED CELL DISTRIBUTION WIDTH 19.9 % (11.5-14.5); WHITE BLOOD COUNT 5.1 K/uL (4.8-10.8)
[2018-12-21 05:43] LABS: ALB/GLOB RATIO 1.1 (1.0-2.1); ALBUMIN 3.1 g/dL (3.5-5.0); ALT/SGPT 27 U/L (9-52); AST/SGOT 20 U/L (14-36); BLOOD UREA NITROGEN 13 mg/dl (7-17); CALCIUM 9.1 mg/dL (8.4-10.2); GFR NON-AFRICAN AMERICAN > 60
[2018-12-21] MEDS: Insulin Regular 100 units/ml SC SCH ×3 (06:30→17:25)
[2018-12-21] MEDS: Potassium Chloride 20 mEq/15 ml LIQ UD PO SCH (08:59)
[2018-12-21] MEDS: Metoprolol Succinate 25 mg XL Tab PO SCH (10:44)
--- NOTE | 2018-12-21 10:56 | CP.PCM.PN ---
Subjective - Date & Time of Evaluation Date of Evaluation: 12/21/18 Time of Evaluation: 10:54 - Subjective Subjective: Pt seen and examined at bedside. Pt has no new complaints at this time. Per nursing, pt antihypertensive medications were held earlier in the day, but were just recently given. Objective - Vital Signs/Intake and Output Vital Signs (last 24 hours): Temp Pulse Resp BP Pulse Ox 97.6 F 81 18 128/74 95 12/21/18 08:03 12/21/18 10:46 12/21/18 08:03 12/21/18 10:46 12/21/18 08:03 - Medications Medications: Current Medications Acetaminophen (Tylenol 325mg Tab) 650 mg PO Q6 PRN PRN Reason: Pain, Mild (1-3) Acetaminophen (Tylenol 325mg Tab) 650 mg PO Q6 PRN PRN Reason: Fever >100.4 F Acetazolamide (Diamox 250 Mg Tab) 250 mg PO BID [facility] Last Admin: 12/21/18 08:56 Dose: 250 mg Albuterol/Ipratropium (Duoneb 3 Mg/0.5 Mg (3 Ml) Ud) 3 ml INH RQ4 [facility] Last Admin: 12/21/18 07:35 Dose: 3 ml Aspirin (Aspirin Chewable) 81 mg PO DAILY [facility] Last Admin: 12/21/18 08:54 Dose: 81 mg Bumetanide (Bumex) 1 mg IVP DAILY [facility] Last Admin: 12/13/18 09:47 Dose: 1 mg Clopidogrel Bisulfate (Plavix) 75 mg PO DAILY [facility] Last Admin: 12/21/18 08:56 Dose: 75 mg Insulin Detemir (Levemir) 10 units SC [facility] Last Admin: 12/20/18 21:00 Dose: 10 units Insulin Human Regular (Humulin R) 0 units SC ACCU-CHECK [facility]; Protocol Last Admin: 12/21/18 06:30 Dose: Not Given Losartan Potassium (Cozaar) 25 mg PO DAILY [facility] Last Admin: 12/21/18 10:46 Dose: 25 mg Metoprolol Succinate (Toprol Xl) 25 mg PO DAILY [facility] Last Admin: 12/21/18 10:44 Dose: 25 mg Risperidone (Risperidone Odt 0.25mg) 0.25 mg PO HS [facility] Last Admin: 12/08/18 21:03 Dose: 0.25 mg Spironolactone (Aldactone) 12.5 mg PO DAILY [facility] Last Admin: 12/21/18 10:47 Dose: 12.5 mg - Labs Labs: 12/21/18 04:20 12/21/18 04:20 PT 13.7 Seconds (9.8-13.1) H 12/10/18 04:35 INR 1.2 12/10/18 04:35 APTT 35.2 Seconds (25.6-37.1) 12/10/18 04:35 - Constitutional Appears: No Acute Distress - Head Exam Head Exam: ATRAUMATIC, NORMOCEPHALIC - Eye Exam Eye Exam: EOMI - ENT Exam ENT Exam: Mucous Membranes Moist - Neck Exam Neck Exam: Full ROM - Respiratory Exam Respiratory Exam: Clear to Ausculation Bilateral, NORMAL BREATHING PATTERN. absent: Accessory Muscle Use, Wheezes, Respiratory Distress - Cardiovascular Exam Cardiovascular Exam: RRR, +S1, +S2. absent: Diastolic murmur, Murmur - GI/Abdominal Exam GI & Abdominal Exam: Soft, Normal Bowel Sounds - Extremities Exam Extremities Exam: Full ROM. absent: Calf Tenderness, Pedal Edema - Neurological Exam Neurological Exam: Alert, Awake, Oriented x3 - Psychiatric Exam Psychiatric exam: Normal Affect, Normal Mood - Skin Skin Exam: Dry, Intact, Warm Assessment and Plan - Assessment and Plan (Free Text) Assessment: Assessment and Plan (1) Acute respiratory failure with hypoxia and hypercarbia Status: Acute (2) Diabetes mellitus type 2 in obese Status: Acute (3) Hypertension Status: Acute Plan: PCI of LAD - planned for today 12/15 LHCx findings: MID LAD 80% Stenosis EF 30-35% Continue holding bumex. Continue Cozaar 25 QD Aldactone 12.5 QD Toprol XL 25 QD plavix 75 ASA 81 Pt seen, examined, assessment and plan discussed with Dr Julio Coffey PGY1, Internal Medicine Resident
--- NOTE | 2018-12-21 12:12 | PN ---
DATE: 12/21/2018 SUBJECTIVE: The patient seen and examined. Interim events noted. Consults noted and appreciated. The patient remains in progressive care unit on telemetry monitoring. Awake, responsive, not able to provide informative history or review of systems. Denies any specific complaint. No chest pain or shortness of breath. PHYSICAL EXAMINATION: GENERAL: The patient is in no acute distress. VITAL SIGNS: Stable. HEART: S1 and S2 normal and regular. LUNGS: Good bilateral air exchange. ABDOMEN: Soft and nontender. EXTREMITIES: No edema, no calf swelling. No tenderness. No acute ischemia. CENTRAL NERVOUS SYSTEM: Exam is essentially unchanged. DIAGNOSTIC DATA: Available diagnostic data reviewed. Telemetry monitoring does not show significant arrhythmias. ASSESSMENT AND PLAN: Overall, the patient's general medical condition is stable. The patient is awaiting for cardiac intervention. Plan as ordered. Nakul Zhang MD
[2018-12-21 12:18] VITALS: BP 131/72; PULSE 87; TEMP 98; O2SAT 99
--- NOTE | 2018-12-21 17:48 | CP.PCM.PN ---
Subjective - Date & Time of Evaluation Date of Evaluation: 11/30/18 Time of Evaluation: 10:40 - Subjective Subjective: Still ventilated Has no fever. WBC i snormal Objective - Vital Signs/Intake and Output Vital Signs (last 24 hours): Temp Pulse Resp BP Pulse Ox 98 F 87 18 131/72 99 12/21/18 12:18 12/21/18 12:18 12/21/18 12:18 12/21/18 12:18 12/21/18 12:18 - Medications Medications: Current Medications Acetaminophen (Tylenol 325mg Tab) 650 mg PO Q6 PRN PRN Reason: Pain, Mild (1-3) Acetaminophen (Tylenol 325mg Tab) 650 mg PO Q6 PRN PRN Reason: Fever >100.4 F Acetazolamide (Diamox 250 Mg Tab) 250 mg PO BID [facility] Last Admin: 12/21/18 17:25 Dose: Not Given Aspirin (Aspirin Chewable) 81 mg PO DAILY [facility] Last Admin: 12/21/18 08:54 Dose: 81 mg Bumetanide (Bumex) 1 mg IVP DAILY [facility] Last Admin: 12/13/18 09:47 Dose: 1 mg Clopidogrel Bisulfate (Plavix) 75 mg PO DAILY [facility] Last Admin: 12/21/18 08:56 Dose: 75 mg Insulin Detemir (Levemir) 10 units SC [facility] Last Admin: 12/20/18 21:00 Dose: 10 units Insulin Human Regular (Humulin R) 0 units SC ACCU-CHECK [facility]; Protocol Last Admin: 12/21/18 17:25 Dose: Not Given Losartan Potassium (Cozaar) 25 mg PO DAILY [facility] Last Admin: 12/21/18 10:46 Dose: 25 mg Metoprolol Succinate (Toprol Xl) 25 mg PO DAILY [facility] Last Admin: 12/21/18 10:44 Dose: 25 mg Risperidone (Risperidone Odt 0.25mg) 0.25 mg PO HS [facility] Last Admin: 12/08/18 21:03 Dose: 0.25 mg Spironolactone (Aldactone) 12.5 mg PO DAILY [facility] Last Admin: 12/21/18 10:47 Dose: 12.5 mg - Labs Labs: 12/21/18 04:20 12/21/18 04:20 PT 13.7 Seconds (9.8-13.1) H 12/10/18 04:35 INR 1.2 12/10/18 04:35 APTT 35.2 Seconds (25.6-37.1) 12/10/18 04:35 - Head Exam Head Exam: NORMAL INSPECTION - Eye Exam Eye Exam: Normal appearance - Respiratory Exam Respiratory Exam: Decreased Breath Sounds - Cardiovascular Exam Cardiovascular Exam: Tachycardia - GI/Abdominal Exam GI & Abdominal Exam: Normal Bowel Sounds Assessment and Plan (1) Acute respiratory failure with hypoxia and hypercarbia Status: Acute (2) Diabetes mellitus type 2 in obese Status: Acute (3) CHF (congestive heart failure) Status: Chronic (4) Pleural effusion Status: Acute (5) Bacteremia Status: Resolved (6) Dehydration Status: Acute (7) Hypertension Status: Acute - Assessment and Plan (Free Text) Plan: Cont close monitor follow up with pulmonary cont tx
[2018-12-21] MEDS ORDERED: Albuterol-Ipratrop 3 mg / 0.5 (3 ml) UD INH PRN (18:15)
== END 2018-12-21 13:30 | disposition short-term general hospital (02) | DRG 870 ==
LOC: H.ER 13:29 → H.ERHOLD 15:41 → H.ICU/CCU 16:45 → H.TEL 12-17 21:20
PROVIDERS: ADMIT Internal Medicine; ATTEND Internal Medicine
PROC: 0BH17EZ Insertion of Endotracheal Airway into Trachea, Via Natural or Artificial Opening (ICD-10-PCS; principal; 2018-11-22)
PROC: 5A1955Z Respiratory Ventilation, Greater than 96 Consecutive Hours (ICD-10-PCS; 2018-11-22)
PROC: 4A023N7 Measurement of Cardiac Sampling and Pressure, Left Heart, Percutaneous Approach (ICD-10-PCS; 2018-12-15)
PROC: B205YZZ Plain Radiography of Left Heart using Other Contrast (ICD-10-PCS; 2018-12-15)
DX: A41.89 Other specified sepsis (principal); J96.22 Acute and chronic respiratory failure with hypercapnia; G93.41 Metabolic encephalopathy; I50.23 Acute on chronic systolic (congestive) heart failure; J18.9 Pneumonia, unspecified organism; J96.21 Acute and chronic respiratory failure with hypoxia; E87.4 Mixed disorder of acid-base balance; J98.11 Atelectasis; E87.0 Hyperosmolality and hypernatremia; J44.0 Chronic obstructive pulmonary disease with (acute) lower respiratory infection; J44.1 Chronic obstructive pulmonary disease with (acute) exacerbation; D63.8 Anemia in other chronic diseases classified elsewhere; E03.9 Hypothyroidism, unspecified; E11.69 Type 2 diabetes mellitus with other specified complication; E66.01 Morbid (severe) obesity due to excess calories; E11.22 Type 2 diabetes mellitus with diabetic chronic kidney disease; Z68.38 Body mass index [BMI] 38.0-38.9, adult; E78.5 Hyperlipidemia, unspecified; E83.51 Hypocalcemia; E86.0 Dehydration; E87.6 Hypokalemia; I25.10 Atherosclerotic heart disease of native coronary artery without angina pectoris; K21.9 Gastro-esophageal reflux disease without esophagitis; T50.2X5A Adverse effect of carbonic-anhydrase inhibitors, benzothiadiazides and other diuretics, initial encounter; Y95 Nosocomial condition; Z79.899 Other long term (current) drug therapy; Z88.6 Allergy status to analgesic agent; Z82.49 Family history of ischemic heart disease and other diseases of the circulatory system; Z87.01 Personal history of pneumonia (recurrent); Z95.810 Presence of automatic (implantable) cardiac defibrillator; K59.00 Constipation, unspecified; Z87.440 Personal history of urinary (tract) infections; I95.9 Hypotension, unspecified; R94.4 Abnormal results of kidney function studies; I11.0 Hypertensive heart disease with heart failure